=== PATIENT | male | born 1950 | race Caucasian/White ===

== ENCOUNTER 2023-12-19 06:16 | Day surgery (SDC) | payer OTHER, SELFPAY ==
[2023-12-11 10:25] VITALS: BMI 28.1
--- NOTE | 2023-12-17 10:49 | PTCARENOTE ---
Patient called with questions regarding preop meds-states he took his eliquis this morning, stated he will not take this evening. Heidi @ Dr. Craig office notified, no additional actions required per Heidi.
[2023-12-19] VITALS (7 sets, daily range): BP systolic 132–168; BP diastolic 81–99; BMI 28.1
[2023-12-19] MEDS: NORMOSOL-R 1000 IV (09:56)
[2023-12-19] MEDS: TYLENOL 1000 MG PO (09:56)
--- NOTE | 2023-12-19 10:16 | W.SUR.PREOP ---
Pre-Operative Surgical Note
-
I have examined this patient prior to the performance of the scheduled procedure.
The patient's condition is unchanged from the time of the current History and
Physical and the patient is able to undergo the scheduled procedure.
--- NOTE | 2023-12-19 11:29 | W.IMMPOSTOP ---
Addendum entered and electronically signed by Luis Miguel Tirado MD 12/19/23 11:35:
#[id number]
Original Note:
Surgical Immed Post Op Note
-
Primary Surgeon: Celestino
Assisting Surgeon: None
Pre-op Diagnosis: Subcutaneous Lipoma Anterior Neck
Post-op Diagnosis: Subcutaneous lipoma right anterior neck; 8.5 cm
Procedure Performed: Excision of right anterior neck subcutaneous lipoma
Anesthesia Type: GETA +0.25% Marcaine with epi
Specimen / Cultures: Subcutaneous lipomatous mass
Estimated Blood Loss: 4 mL
Complications: None immediate
Operative Findings: Large lobulated but encapsulated subcutaneous lipoma right anterior neck. 8.5 cm maximal dimension.
== END 2023-12-19 13:05 | disposition home or self-care (01) ==
LOC: SDS 06:16
PROVIDERS: ATTENDING PHYSICIAN Surgery; FAMILY PHYSICIAN Student in an Organized Health Care Education/Training Program
DX: D17.0 Benign lipomatous neoplasm of skin and subcutaneous tissue of head, face and neck (principal)
CPT/HCPCS: 11426; 12044; 88304; 36415; 93005

== ENCOUNTER → 2024-07-02 07:34 | Outpatient (REF) | payer OTHER, SELFPAY | LOC: HWRCS 07:34 | PROVIDERS: ATTENDING PHYSICIAN Internal Medicine Cardiovascular Disease; FAMILY PHYSICIAN Student in an Organized Health Care Education/Training Program | DX: Z01.818 Encounter for other preprocedural examination (principal); R01.1 Cardiac murmur, unspecified; R94.39 Abnormal result of other cardiovascular function study | CPT/HCPCS: 78452; 93017; A9500; J2785 ==

== ENCOUNTER → 2024-07-07 08:03 | Outpatient (REF) | payer OTHER, SELFPAY | LOC: RCS 08:03 | PROVIDERS: ATTENDING PHYSICIAN Internal Medicine Cardiovascular Disease; FAMILY PHYSICIAN Student in an Organized Health Care Education/Training Program | DX: R01.1 Cardiac murmur, unspecified (principal) | CPT/HCPCS: 93306 ==

== ENCOUNTER 2024-07-15 06:26 | Day surgery (SDC) | payer OTHER, SELFPAY | END 2024-07-15 09:16 | disposition home or self-care (01) | LOC: GI 06:26 | PROVIDERS: ATTENDING PHYSICIAN Specialist | DX: Z12.11 Encounter for screening for malignant neoplasm of colon (principal); D12.0 Benign neoplasm of cecum; D12.2 Benign neoplasm of ascending colon; K63.5 Polyp of colon; K57.30 Diverticulosis of large intestine without perforation or abscess without bleeding; Z86.0101 Personal history of adenomatous and serrated colon polyps | CPT/HCPCS: 45385; 45380; 88305 ==

== ENCOUNTER 2024-11-09 07:02 | Day surgery (SDC) | payer OTHER, SELFPAY ==
[2024-10-26 10:15] VITALS: BMI 27.1
[2024-11-09 07:50] VITALS: BMI 27.1
== END 2024-11-09 10:49 | disposition home or self-care (01) ==
LOC: CATH 07:02
PROVIDERS: ATTENDING PHYSICIAN Internal Medicine Cardiovascular Disease; FAMILY PHYSICIAN Student in an Organized Health Care Education/Training Program
DX: I08.3 Combined rheumatic disorders of mitral, aortic and tricuspid valves (principal); I48.0 Paroxysmal atrial fibrillation; I42.9 Cardiomyopathy, unspecified; I10 Essential (primary) hypertension; I45.2 Bifascicular block; E03.9 Hypothyroidism, unspecified; N40.0 Benign prostatic hyperplasia without lower urinary tract symptoms; I27.20 Pulmonary hypertension, unspecified; Z79.01 Long term (current) use of anticoagulants
CPT/HCPCS: 93312; 93320; 93325; 93005

== ENCOUNTER 2025-02-04 07:25 | Day surgery (SDC) | payer OTHER, SELFPAY ==
[2025-02-04] VITALS (9 sets, daily range): BP systolic 125–159; BP diastolic 75–103; BMI 26.9
[2025-02-04] MEDS: NSS 269 ML IV (08:29)
--- NOTE | 2025-02-04 12:04 | ITS.CL.PN ---
Helminthology Teacher - Procedure Note
Procedure
Procedure Note:
CARDIAC CATHETERIZATION REPORT
Date of Procedure: 02/04/2025
Referring: Dr. Terrence Moore MD
Indication: anginal chest pain, positive cardiac stress test, moderate MR
PROCEDURE(S)
1. right heart catheterization
2. left heart catheterization
3. coronary angiography
ACCESS
1. 6F right radial artery (closure: radial band)
2. 5F right antecubital vein (closure: manual hemostasis)
CATHETERS
1. 5F [place]
2. 6F JR4
3. 6F JL5
MODERATE SEDATION: 30 minutes of moderate sedation was utilized. An independent certified medical coding specialist was present to assist with and help manage the patient's level of consciousness and physiologic status.
VENTRICULOGRAPHY: normal EF and no RWMA, no evidence of more than moderate MR
HEMODYNAMIC DATA
LV 117/7 (EDP 14) mmHg
AO 125/74 (mean 91) mmHg
RA 10 mmHg
RV 26/4 (EDP 10) mmHg
PA 29/10 (mean 18) mmHg
PCWP 15 mmHg
SaO2 93.4%
SvO2 67.6%
Hb 14.4 g/dL
CO/CI 5.25/2.47 L/min/m2
SVR 1234 dsc*-5
PVR 0.6 [place] units
CORONARY ANGIOGRAPHY
Dominance: co-dominant
LM: large with mild distal tapering
LAD: Large vessel giving rise to a moderate caliber D1, small D2, and terminating at the apex. There is severe disease in the proximal LAD extending into the D1. The apical LAD supplies [id number] collaterals to an atretic appearing RPDA.
LCx: Large co-dominant vessel giving rise to a moderate caliber branching OM1/ramus, large branching LPL1, moderate caliber LPL2, and moderate caliber LPDA. There is severe disease in the proximal portion of the OM1/ramus and the proximal portion of
the LPL2. The remainder the vessel has diffuse mild to moderate disease.
RCA: Large codominant vessel severely occluded in the midportion with the RPDA supplied via weak antegrade flow competing with L-R collaterals
RADIATION: dose 486 mGy; DAP 33.2 Gy*cm2; fluoroscopy time 9.6 min
CONCLUSIONS
1. Triple-vessel coronary artery disease as described in a codominant system
2. Mildly elevated biventricular filling pressures and normal cardiac output.
3. No significant aortic valve stenosis and no evidence of worsened moderate mitral valve regurgitation
RECOMMENDATIONS
1. Consideration for coronary artery bypass grafting and mitral valve repair versus replacement. [place] revascularization would involve grafts to the LAD, D1, OM1/ramus, and LPL1.
2. Aggressive secondary prevention of coronary artery disease
Copy to: Dr. Terrence Moore MD (locomotive crane operator); Dr. Shimon Ponce MD (PCP)
Signed: Checo Rodriguez MD, PhD
--- NOTE | 2025-02-04 13:11 | PTCARENOTE ---
received pt from labor relations worker w heart rate of 45 bpm. pt asymptomatic .no c/o dizziness, no diaphoresis,pt aa and oriented. notified backend python developer gay sullivan. ekg orderd and complete. dr bergeron also at bedside and aware of heart rate. no intervention at this time.
--- NOTE | 2025-02-04 14:16 | PTCARENOTE ---
pts hr still 45-51. barbara sullivan aware and stated pts previous admissions his hr was in the 40's. and pt was stable when walked and voided . without complaint of any dizziness or diaphoresis. pt is ok to be discharged.
== END 2025-02-04 14:31 | disposition home or self-care (01) ==
LOC: CATH 07:25
PROVIDERS: ATTENDING PHYSICIAN Student in an Organized Health Care Education/Training Program; FAMILY PHYSICIAN Student in an Organized Health Care Education/Training Program; OTHER PHYSICIAN Internal Medicine Cardiovascular Disease
DX: I25.119 Atherosclerotic heart disease of native coronary artery with unspecified angina pectoris (principal); I34.0 Nonrheumatic mitral (valve) insufficiency; I49.3 Ventricular premature depolarization; I48.91 Unspecified atrial fibrillation; I45.10 Unspecified right bundle-branch block; I10 Essential (primary) hypertension; E03.9 Hypothyroidism, unspecified; Z79.01 Long term (current) use of anticoagulants; Z79.899 Other long term (current) drug therapy
CPT/HCPCS: 99152; 99153; 93005; 93460; C1769; C1894; Q9967

== ENCOUNTER → 2025-02-09 11:27 | Outpatient (REF) | payer OTHER, SELFPAY | LOC: HWRAD 11:27 | PROVIDERS: ATTENDING PHYSICIAN Thoracic Surgery (Cardiothoracic Vascular Surgery); FAMILY PHYSICIAN Student in an Organized Health Care Education/Training Program | DX: I25.10 Atherosclerotic heart disease of native coronary artery without angina pectoris (principal) | CPT/HCPCS: 71250 ==

== ENCOUNTER 2025-02-16 04:54 | Inpatient (IN) | payer OTHER, SELFPAY ==
[2025-02-11 11:59] VITALS: BMI 28.7
[2025-02-11 12:40] LABS: Hematocrit 41.3 % (39.0-52.0); Hemoglobin 14.1 g/dL (13.0-18.0); Mean Corp Hgb Conc. 34.1 g/dL (33.0-37.0); Mean Corpuscular Volume 99.8 fL (80.0-94.0); Nucleated Red Blood Cells % 0 % (-); Platelet Count 224 10^3/uL (130-400); Red Cell Dist. Width 11.9 % (11.5-14.5)
[2025-02-11 12:53] LABS: INR 1.24; PT 15.9 Sec (11.4-14.6)
[2025-02-11 12:56] LABS: ALT (SGPT) 32 U/L (0-50); AST (SGOT) 40 U/L (17-59); Albumin 4.2 g/dl (3.5-5.0); Alkaline Phosphatase 105 U/L (38-126); Blood Urea Nitrogen 16 mg/dl (9-20); Calcium 9.5 mg/dl (8.4-10.2); Carbon Dioxide 30 mmol/L (22-30); Chloride 105 mmol/L (98-107); Estimated Creatinine Clearance 94 ml/min; Glucose 116 mg/dl (70-99); Potassium 4.1 mmol/L (3.5-5.1); Sodium 141 mmol/L (135-145); Total Protein 7.2 g/dl (6.3-8.2); eGFR > 60.00
[2025-02-11 13:08] LABS: Urine Character Clear (Clear)
--- NOTE | 2025-02-11 13:58 | CM ---
spoke to pt in PAT, we discussed preop CABG/AVR/MVR restrictions, including [place] driving restrictions. he is prev indep, lives with hiis in a 2 story home with 1 step to enter. he has a cane at home if needed. he has the ct surgery book,
soap and instructions. he is agreeable to a f/u visit from the ct transitional care nurses after dc. plan is for ct surgery 02/16, cm role explained and all questions answered.
[2025-02-11 14:05] LABS: Urine Squamous Cell 0-2 /LPF (Few); Urine White Cell 0-2 /HPF (0-5)
[2025-02-11 14:23] LABS: Glycohemoglobin (HgbA1c) 5.4 % (4.0-5.6)
[2025-02-16] VITALS (14 sets, daily range): BP systolic 87–169; BP diastolic 50–114; BMI 28.2
[2025-02-16] MEDS: MAGNESIUM OXIDE 400 MG PO (05:24)
[2025-02-16] MEDS: BACTROBAN 2% OINTMENT 1 APPLIC NASAL ×2 (05:25→19:31)
[2025-02-16] MEDS: PROTONIX 40 MG PO (05:25)
[2025-02-16] MEDS: LOPRESSOR 25 MG PO (05:25)
--- NOTE | 2025-02-16 05:49 | PTCARENOTE ---
Patient admitted to CVICU. Admission questions asked and vital signs obtained. Patient clipped and washed w/ CHG wipes. Med rec performed. Medications administered. Patient states having SOB when sleeping. CT PA Ed aware. Awaiting CVOR.
--- NOTE | 2025-02-16 06:17 | W.CVOR.SURPR ---
CVOR Surgeon Immed Pre Op
-
I have examined this patient prior to performance of the scheduled procedure.
The patient's condition is unchanged from the time of the dictated/written History and
Physical and the patient is able to undergo the scheduled procedure.
CABG + MVr +/- AVR + LAAE
[2025-02-16 07:00] LABS: ACT+ - POC 137 Seconds (82-134)
[2025-02-16 07:39] LABS: Urine Character Clear (Clear)
[2025-02-16 07:59] LABS: Urine Squamous Cell 0-2 /LPF (Few); Urine Urothelial Cell >30 /LPF (FEW)
[2025-02-16 08:02] LABS: Urine White Cell 0-2 /HPF (0-5)
[2025-02-16 08:03] LABS: Urine Red Blood Cell 21-25 /HPF (0-2)
--- NOTE | 2025-02-16 08:18 | CM ---
Reviewed chart. Mr. Law is in the operating room today. Prior to admission he resides with his spouse in a two story home with one step to enter. Prior to admission he was independent with ambulation and adls. He has a single point cane at home.
He has a prescription plan and uses [facility]. Medial work-up in progress. The dischargee plan is to return home with his spouse and a home visit by the Transitional Care Nurse when medically stable.
[2025-02-16 08:32] LABS: ACT+ - POC 672 Seconds (82-134)
[2025-02-16 08:47] LABS: B.E. - POC 2.0 mmol/L; Glucose - POC 115 mg/dl (70-99); HCO3 - POC 29 mmol/L (21-28); Hematocrit - POC 37 % PCV (42-52); Hemodilution- POC Yes; Hemoglobin Calculated - POC 12.7; Ionized Calcium - POC 1.24 mmol/L (1.15-1.33); Lactate - POC < 0.30 mmol/L (0.36-0.75); O2 Saturation %Calculated-POC 99.9 % (94-98); PCO2 - POC 54 mmHg (35-48); PO2 - POC 339 mmHg (83-108); POC Comment PRE; Potassium - POC 3.3 mmol/L (3.5-5.1); Sodium - POC 143 mmol/L (136-145); Specimen Type - POC Arterial; pH - POC 7.34 (7.35-7.45)
--- NOTE | 2025-02-16 08:49 | CON.INTV ---
Consultation
Consultation Request
Date/Time Consultation Requested: 02/16/2025
Date/Time Consultation Performed: 02/16/2025
Medical History
-
Chief Complaint: Dyspnea
History of Present Illness:
Patient is a 74-year-old gentleman who follows up with cardiology services outpatient. Patient reportedly has some exertional dyspnea concerning for anginal symptoms. Subsequent stress test was abnormal and patient then had a coronary angiogram
performed which was suggestive of multivessel coronary artery disease. Patient was then referred to CT surgery service. Coronary artery bypass graft was recommended and postprocedure patient was admitted to CVICU. Platform Builder consultation was
requested for further input.
Past medical history. Hypertension, hypothyroidism, atrial fibrillation, history of colon adenoma.
Past surgical history. Appendectomy, epidural steroid injection. Lipoma excision.
Family history. No significant coronary artery disease.
Social history. No history of smoking.
Allergies / Home Medications
Allergies
Allergy/AdvReac Type Severity Reaction Status Date / Time
No Known Allergies Allergy Verified 02/10/25 11:39
Home Medications
�Medication �Instructions �Recorded �Confirmed �Last Taken �Type
levothyroxine 150 mcg tablet 150 mcg PO DAILY 12/11/23 02/16/25 02/15/25 History
lisinopril 40 mg tablet 40 mg PO DAILY 12/11/23 02/16/25 02/13/25 History
L.acidophilus-B.animalis-B.bifidum 1 cap PO DAILY 10/22/24 02/16/25 02/15/25 History
25 billion cell-FOS 100 mg capsule
(Probiotic Complex)
acetaminophen 325 mg tablet 325 mg PO PRN PRN pain 10/22/24 02/16/25 02/08/25 History
(Tylenol)
apixaban 5 mg tablet (Eliquis) 5 mg PO BID 10/22/24 02/16/25 02/12/25 History
multivitamin 1 tab PO DAILY 10/22/24 02/16/25 02/08/25 History
aspirin 81 mg chewable tablet 81 mg PO DAILY #1 tab 02/04/25 02/16/25 02/15/25 Rx
0800
atorvastatin 40 mg tablet 40 mg PO QPM #90 tabs 02/04/25 02/16/25 02/14/25 Rx
nitroglycerin 0.4 mg sublingual 0.4 mg sublingual [id number] PRN 02/04/25 02/16/25 Unknown Rx
tablet chest pain #25 tabs
diltiazem HCl 120 mg capsule,24 120 mg PO DAILY 02/10/25 02/16/25 02/13/25 History
hr,extended release
polyethylene glycol 3350 17 4 g PO DAILY PRN constipation 02/10/25 02/16/25 02/15/25 History
gram/dose oral powder (Miralax)
Review of Systems
-
Unable to Obtain full review of systems at this time due to: Patient Intubation
Vitals / Labs / Diagnostic Testing
Vital Signs
Temp Resp BP Pulse Ox
97.5 F 16 150/114 96
02/16/25 05:00 02/16/25 05:00 02/16/25 05:25 02/16/25 05:00
Lab Data
02/11/25 12:10
02/11/25 12:10
Diagnostic Testing:
Physical Exam
-
HEENT: Normocephalic
Cardiovascular: S1/S2
Respiratory: Clear and Non-Labored Respirations
GI: Soft and Non Distended
Neurology: Other (Sedated)
Skin: Warm
General: Comfortable
Assessment
-
74-year-old gentleman with multivessel coronary artery disease s/p coronary artery bypass graft, mitral valve repair, tricuspid valve repair, maze procedure and left atrial appendage exclusion, POD # 0
Titrate off pressors per protocol, currently on dobutamine infusing at 5. Off Levophed. MAP of 77 with CVP of 7.
ECHO reviewed with normal function
Management of chest tubes per primary service
Intubated, initiated SAT, Precedex on hold. Still quite somnolent.
Pain control
RASS goal of 0 to -1
Intubated for procedure, SBT trial when patient able to spontaneously breath
Current vent settings: SIMV, %/5 with PS 5
AB.43/41/105
CXR with no obvious opacities/infiltrates, ETT in good position, lines/tubes in place
Extubate per protocol
Maintain supplement oxygen as needed
No prior known history of pulmonary disease
Can add nebulizers if needed
Aspiration precautions
Encouraged incentive spirometry, OOB/ambulation/early mobility
Advance diet as tolerated following extubation
GI prophylaxis: Protonix
Monitor critical I/O's
Buenrostro/chest tube output
Hb/platelets postoperatively, mild drift
Trend CBC for now
Can transfuse if indicated for Hb <7, plt <50 in surgical patients
DVT prophylaxis including SCDs
INR slightly elevated. Received 2 Platelets and 2 FFPs intra-op.
Insulin protocol initiated and ongoing
Transition to SQ/off as indicated per team
Other medical diagnoses:
- Atrial Fibrillation. Chronically has been on Eliquis and Cardizem ER 120 mg daily.
- Hypertension
- Hypothyroidism
Will get additional history once patient is awake, alert and able to communicate.
Critical Care time [63] mins -- The patient is admitted for acute critical illness for the treatment of vital organ failure and/or prevention of further life-threatening conditions. Total care includes time spent in review of history, physical exam,
medications, hemodynamic/ventilator parameters, laboratory data, imaging and discussion with house staff, pharmacy, respiratory therapy, geophysical drafter, and nursing
Data:
[facility] 01/2025: 1. Triple-vessel coronary artery disease as described in a codominant system
2. Mildly elevated biventricular filling pressures and normal cardiac output.
3. No significant aortic valve stenosis and no evidence of worsened moderate mitral valve regurgitation
CHEST CT 01/2025: Coronary artery calcifications, limited in evaluation, as noted above.
SAJAN 10/2024: Normal left ventricular systolic function .
Estimated ejection fraction 55 to 60%.
Moderate eccentric mitral regurgitation
Mild to moderate aortic regurgitation
Mild to moderate tricuspid regurgitation
No evidence of pulmonary hypertension
ECHO 06/2024: Top normal left ventricular chamber size.
Estimated left ventricular ejection fraction is 50% with mild global hypokinesis.
Severe biatrial enlargement.
At least moderate, highly eccentric, mitral regurgitation.
Mild to moderate aortic regurgitation.
Mild to moderate tricuspid regurgitation.
Estimated PASP 45 mmHg and estimated RA 8 mmHg.
Mildly dilated aortic root and ascending aorta.
Compared to echocardiogram 11/05/2019 the LV has increased in size/volume and is
now top normal in size with low normal systolic function. MR may have
progressed. Pulmonary hypertension is new.
Consider a SAJAN to exclude severe MR.
[2025-02-16 08:51] LABS: ACT+ - POC 482 Seconds (82-134)
[2025-02-16 09:11] LABS: ACT+ - POC 527 Seconds (82-134)
[2025-02-16 09:21] LABS: ACT+ - POC 487 Seconds (82-134)
[2025-02-16 09:37] LABS: ACT+ - POC 502 Seconds (82-134)
[2025-02-16 09:56] LABS: ACT+ - POC 817 Seconds (82-134)
[2025-02-16] MEDS: SYNTHROID PO (09:59)
[2025-02-16 10:01] LABS: B.E. - POC 7.7 mmol/L; Glucose - POC 115 mg/dl (70-99); HCO3 - POC 31 mmol/L (21-28); Hematocrit - POC 31 % PCV (42-52); Hemodilution- POC Yes; Hemoglobin Calculated - POC 10.7; Ionized Calcium - POC 1.09 mmol/L (1.15-1.33); Lactate - POC 0.72 mmol/L (0.36-0.75); O2 Saturation %Calculated-POC 100.0 % (94-98); PCO2 - POC 36 mmHg (35-48); PO2 - POC 335 mmHg (83-108); POC Comment CPB; Potassium - POC 4.5 mmol/L (3.5-5.1); Sodium - POC 140 mmol/L (136-145); Specimen Type - POC Arterial; pH - POC 7.54 (7.35-7.45)
[2025-02-16 10:11] LABS: ACT+ - POC 600 Seconds (82-134)
[2025-02-16 10:25] LABS: B.E. - POC 5.7 mmol/L; Glucose - POC 140 mg/dl (70-99); HCO3 - POC 30 mmol/L (21-28); Hematocrit - POC 32 % PCV (42-52); Hemodilution- POC Yes; Hemoglobin Calculated - POC 10.9; Ionized Calcium - POC 1.10 mmol/L (1.15-1.33); Lactate - POC 1.46 mmol/L (0.36-0.75); O2 Saturation %Calculated-POC 99.9 % (94-98); PCO2 - POC 39 mmHg (35-48); PO2 - POC 271 mmHg (83-108); POC Comment CPB; Potassium - POC 4.5 mmol/L (3.5-5.1); Sodium - POC 141 mmol/L (136-145); Specimen Type - POC Arterial; pH - POC 7.49 (7.35-7.45)
[2025-02-16 10:33] LABS: ACT+ - POC 509 Seconds (82-134)
[2025-02-16 10:53] LABS: ACT+ - POC 527 Seconds (82-134)
[2025-02-16 10:53] LABS: B.E. - POC 5.4 mmol/L; Glucose - POC 144 mg/dl (70-99); HCO3 - POC 29 mmol/L (21-28); Hematocrit - POC 30 % PCV (42-52); Hemodilution- POC Yes; Hemoglobin Calculated - POC 10.1; Ionized Calcium - POC 1.08 mmol/L (1.15-1.33); Lactate - POC 1.32 mmol/L (0.36-0.75); O2 Saturation %Calculated-POC 99.9 % (94-98); PCO2 - POC 37 mmHg (35-48); PO2 - POC 322 mmHg (83-108); POC Comment WARM; Potassium - POC 4.4 mmol/L (3.5-5.1); Sodium - POC 144 mmol/L (136-145); Specimen Type - POC Arterial; pH - POC 7.50 (7.35-7.45)
[2025-02-16 10:57] LABS: B.E. - POC 7.7 mmol/L; Glucose - POC 108 mg/dl (70-99); HCO3 - POC 31 mmol/L (21-28); Hematocrit - POC 30 % PCV (42-52); Hemodilution- POC Yes; Hemoglobin Calculated - POC 10.1; Ionized Calcium - POC 1.08 mmol/L (1.15-1.33); Lactate - POC < 0.30 mmol/L (0.36-0.75); O2 Saturation %Calculated-POC 100.0 % (94-98); PCO2 - POC 39 mmHg (35-48); PO2 - POC 425 mmHg (83-108); POC Comment CPB; Potassium - POC 3.9 mmol/L (3.5-5.1); Sodium - POC 141 mmol/L (136-145); Specimen Type - POC Arterial; pH - POC 7.52 (7.35-7.45)
[2025-02-16 11:03] LABS: ACT+ - POC 585 Seconds (82-134)
[2025-02-16 11:15] LABS: B.E. - POC 4.8 mmol/L; Glucose - POC 134 mg/dl (70-99); HCO3 - POC 28 mmol/L (21-28); Hematocrit - POC 27 % PCV (42-52); Hemodilution- POC Yes; Hemoglobin Calculated - POC 9.3; Ionized Calcium - POC 1.03 mmol/L (1.15-1.33); Lactate - POC 1.68 mmol/L (0.36-0.75); O2 Saturation %Calculated-POC 100.0 % (94-98); PCO2 - POC 35 mmHg (35-48); PO2 - POC 329 mmHg (83-108); POC Comment WARM; Potassium - POC 4.8 mmol/L (3.5-5.1); Sodium - POC 143 mmol/L (136-145); Specimen Type - POC Arterial; pH - POC 7.51 (7.35-7.45)
[2025-02-16 11:21] LABS: ACT+ - POC 148 Seconds (82-134)
[2025-02-16 11:31] LABS: ACT+ - POC 148 Seconds (82-134)
[2025-02-16] MEDS: NEURONTIN PO ×2 (12:33→15:13)
--- NOTE | 2025-02-16 12:57 | W.PN.CT.SURG ---
CT Surgery Operative Note
-
CARDIAC SURGERY OPERATIVE REPORT
Preoperative Diagnosis: Severe mitral valve insufficiency and unstable angina with multivessel coronary artery disease
Postoperative Diagnosis: Same, severe tricuspid valve insufficiency, functional
Procedure(s) Performed:
1. Standard sternotomy with aortic and bicaval cannulation
2. Coronary artery bypass grafting x 4 [in situ MAGANA to LAD, Ao to RSVG to OM 1 and LPL, Ao to RSVG to diagonal]
3. Radical mitral valve repair [closure of cleft between P2 and P3, free edge remodeling between P3 and commissure, placement of single Stow-Gaston suture from anterolateral papillary muscle head to P2 and P3, 32 mm band annuloplasty]
4. Simple tricuspid valve repair [34 mm band annuloplasty]
5. Full surgical, open left atrial maze and left atrial appendage exclusion [40 mm device]
6. 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
7. Placement of temporary atrial ventricular pacing wires
8. Transesophageal echocardiography
9. Bilateral endoscopic vein harvesting
Date of Surgery: 02/16/25
Comorbidities:
1. Multivessel coronary disease with unstable angina
2. Ischemic and nonischemic mixed cardiomyopathy with reduced left ventricular ejection fraction of 40 to 45%
3. Hyperlipidemia
4. Hypertension
5. Paroxysmal atrial fibrillation
6. Mild aortic valve insufficiency secondary to leaflet prolapse
7. Type II mitral valve pathology, flail with prolapse of P3 and severe mitral valve insufficiency
8. Functional tricuspid valve insufficiency, severe
Attending Surgeon: Ilan Sullivan MD, MS
Assistants: Ida Hernandez PA-C (present and necessary to registered dental assistant, retraction, suction, exposure, suture management, and wound closure under my direction)
Anesthesiology: Jose Manuel Oviedo MD and Eufemia Richards CRNA
Scrub and Circulating RNs: Tere Gtz, RN, Monica Young, RN and Rain Yee RN
Manager News: Florence Shell CCP
Anesthesia: GETA
EBL: per perfusion records
Products: 2 plts and 2 ffp
CPB Time: 148 minutes
Aortic Cross Clamp Time: 123 minutes
Indication(s) for Procedures: This is a 74-year-old male who recently had a positive cardiac stress test and also has been experiencing chest pain and tightness. He was found to have multivessel coronary disease. He also has known mitral valve
insufficiency that was secondary to degenerative pathology. He was offered valve and coronary intervention and possible ablation as well as left atrial appendage ligation given his history of A-fib.
Aortic Valve Description: Mild aortic valve insufficiency, trileaflet morphology with some prolapsing of the left coronary cusp and some leakage at the commissure, not enough to intervene on.
Mitral Valve Description: Flail segment with a couple of torn cords at the P3 scallop, dilated annulus.
Tricuspid Valve Description: Dilated annulus of over 5 cm and moderately severe to severe tricuspid valve insufficiency, functional pathology.
Findings: His left ventricular ejection fraction preoperatively was 45% with mild dilation of his left ventricle. He also had a strange opacity seen on echocardiogram next to his left atrial appendage concerning for either clot or a fibroelastoma.
Following surgery his EF remained the same at 40% on low-dose dobutamine. There were no new regional wall motion abnormalities. His RV function was normal. His mitral valve was repaired with plication of his free margin and remodeling as well as
cleft closure between P2 and P3 and P3 and the commissure. A single Stow-Gaston cord placed the anterior lateral papillary muscle head to this P2 P3 free margin in order to reinforce it for the future. A 32 mm band annuloplasty was secured in the
placement trigone to trigone using 9 nonpledgeted 2-0 Ethibond sutures secured with core knots. The tricuspid valve was severely dilated and a total of 9 nonpledgeted 2 Ethibond sutures were placed from the anterior septal commissure to the
midpoint of the septal leaflet securing a 34 mm band annuloplasty with core knots. A total of 4 coronary artery bypass graft performed with an in situ MAGANA to the LAD with good visual flow in the LAD territory. Flow probe assessment of the graft
demonstrated excellent mean flows and low pulsatility indices. A vein graft was also performed to the first OM and the LPL branch as a sequential graft. There is excellent flow in this graft. A single diagonal vein graft was also performed that
demonstrated excellent mean flows and low pulsatility indices. There was some bleeding at the LPL branch anastomosis which required repair. He was also in atrial fibrillation at the beginning of the case and so full left atrial ablation was
performed please see the ablations lines listed below. 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
left atrium. This was resected. The left atrial appendage was then clipped with a 40 mm device flush to the base. I then surveyed intra atrial he into the left atrium while doing the mitral valve repair and ablation and found no residual
fibroelastoma. After coming off cardiopulmonary bypass there was no residual mitral valve insufficiency, the mean gradient across the mitral valve was 2 mmHg, there is no residual tricuspid valve insufficiency. He was on 5 of Dobutrex preemptively
and regained his [place] sinus rhythm after short period of AV pacing and A-fib. Cardiac index is well over 2. He was resistant to heparin and had low and fluctuating ACT's and so to units FFP were given preemptively. Of note, his ascending aorta
was relatively friable and thin and there was multiple repair sutures placed at the antegrade site for hemostasis which was accessible. A bovine pericardial patch was fashioned and oval and sewn on with 4-0 Prolene over top of this site as a [place]
patch with good effect.
Ablation Lines:
1. Box lesion to posterior LA wall
2. EVI lesion + EVI Exclusion
3. Coronary sinus lesion
4. Posterior mitral annular line toward P2/P3
Specimen(s): Fibroelastoma.
Prosthesis:
1. 32 mm Taylor physio flex and annuloplasty, serial #[id number]
2. 40 mm left atrial appendage clip, serial #[id number]
3. 34 mm Medtronic triad band annuloplasty for tricuspid valve, serial number [id number]
4. Bovine pericardial patch, serial number [id number] of the end
5. Single CV 3 Stow-Gaston
6. Multiple 5-0 Prolenes
Description of Procedure: The patient was taken to the operating room. Their identity and procedure to be performed were verified and they were positioned supine on the operating table. Induction via general anesthesia with endotracheal intubation
was performed and central venous access and arterial monitoring were inserted. A preoperative transesophageal echocardiogram was performed to assess cardiac function and valvular function. The patient was then prepped and draped from chin to feet in
a sterile fashion. A preoperative time-out was performed with all members of the team present. A midline chest incision was performed along with median sternotomy. Simultaneous endoscopic access of the right and left lower extremity for saphenous
vein harvest was obtained along with administration of an initial 5,000 units of IV heparin. A RulTract sternal retractor was positioned to exposure the left internal mammary bed. The mammary was harvested and found to have good flow. the distal
end of the mammary was clipped with 2 medium clips after dividing it. It was wrapped in a papaverine soaked RayTec and replaced back into the left hemithorax. The RulTract was exchanged for a median sternal retractor. The innominate vein was
isolated. Full heparinization was given (a total of 76,000 units). We created a pericardial well. The aortic cannulation site was chosen where it was soft, pliable, and free of calcium. Cannulation was performed with an arterial cannula in the
ascending aorta, angled metal tip cannular in the superior vena cava and straight bendable cannula in the inferior vena cava. The arterial cannula line had an appropriate bounce and correlating pressures. Next, a root vent/antegrade cannula was
inserted into the ascending aorta. The ACT was confirmed to be over 400 and retrograde autologous priming was performed before commencing cardiopulmonary bypass. The pulmonary artery was away from the aorta to facilitate a clamp site.
Sondergaard�s groove was developed after creating the oblique sinus. The aortic cross-clamp was placed after decreasing the flow on the bypass and mean arterial pressure. A total of 1.2L initial dose of antegrade Del-Nido cardioplegia solution was
given and planned for re-dosing every 60 minutes as necessary. There was rapid electro-mechanical arrest of the heart at 300-400 cc of cardioplegia. The left ventricle was observed for distention on echocardiogram and manual palpation. Cold slush
was placed into a lap on the RV and we systemically cooled to 34 degrees centigrade.
I open the left atrial appendage after rotating heart medially here and visualized inside. There is no obvious clot but there was a small fibroelastoma on the wall. This was removed. A clip was then applied flush the base. Next, I positioned the
heart to expose the LPL. A [place] blade was used to expose the coronary and perform the arteriotomy. Coronary Garza scissors were used to enlarge the incision. The saphenous vein was trimmed and beveled to an appropriate size. The distal anastomosis
was performed using 7-0 prolene in an end-to-side fashion. Antegrade cardioplegia was administered into the graft. Appropriate hemostasis and flow were confirmed. The graft was then positioned in order to accommodate a sequential graft to the first
OM. The underbelly of the vein graft was incised and the distal coronary artery target was. A similar fashion. A nnvx-na-dunm anastomosis was then created 7-0 Prolene. A bulldog clamp was placed on the distal end of that sequential graft and
test dose of antegrade was given down in the usual fashion. This confirmed both hemostasis and flow. The graft was measured for length to the aorta and cut. A suitable site on the bifurcated diagonal vessel was chosen. We dissected and prepared
the distal target in a similar fashion. An end-to-side anastomosis was created with a 7-0 prolene. Antegrade cardioplegia was administered into the graft. Appropriate hemostasis and flow were confirmed. The graft was measured for length to the aorta
and cut. A suitable target on the mid/distal left anterior descending was identified. We dissected and prepared the distal target in a similar fashion. We retrieved the MAGANA from the chest and created a pericardial opening while being cognizant of
the phrenic nerve to facilitate the course of the mammary. The distal end of the mammary was prepped and beveled to size. We verified orientation and length of the LUCIO and found brisk flow. An end-to-side anastomosis was created with a 7-0 prolene.
We temporarily released the bulldog clamp on the mammary to inspect flow. Perfusion to the LAD territory was visualized and hemostasis was confirmed. The bull clamp was replaced on the mammary.
Carbon dioxide was used to flood the field. Next, the mitral valve was accessed via the left atrium at Sondergaard's groove followed by valve analysis. Using cryo, a full left atrial base was performed. The mitral valve was repaired as described
above. The left atrium was closed with a 3-0 prolene. I then used Vesseloops to isolate the SVC and IVC and the right atrium was opened up vertically across the stanley terminalis. The tricuspid valve was repaired as described above. I then moved
onto performing the proximal anastomoses. The root was filled with antegrade cardioplegia and then punctured x 2 with 11 blade and enlarged with a 4.0 millimeter punch. The proximal anastomoses were performed with 6-0 Prolene in a running fashion.
At this point the patient was placed into a steep Trendelenburg position and de-airing maneuvers were then performed. Ventricular pacing wires as well as atrial pacing wires were placed in the base of the RV and SVC right atrial junction,
respectively. The flows on the heart-lung machine was then lowered and the cross-clamp was removed. While the heart was reperfusing, the right atrium was then closed under isolation with 5-0 Prolene in a running fashion in 2 layers. The SVC and
IVC snares were then removed.
Transesophageal echocardiography revealed no evidence of systolic anterior motion and ventricular function was normal. Once de-airing was satisfactory the left ventricular and root vents were removed. After verifying acceptable parameters, we
initiated weaning from cardiopulmonary bypass. Once we were off cardiopulmonary bypass, the venous cannulas was clamped and removed sequentially. A test dose of protamine was administered and the patient was monitored for any adverse reaction before
resuming protamine. Once half of the protamine dose was delivered, pump suckers were turned off and the systolic blood pressure was lowered for aortic decannulation. The aortic cannula was removed and purse strings were tied down. All cannulation
sites were oversewn with a 4-0 prolene. The left atrial suture line was inspected and hemostasis was confirmed. There was some bleeding at the distal anastomosis at the LPL site and so this was exposed and repaired with a 7-0 suture and placement
of topical hemostatic agent. Mediastinal hemostasis was obtained. Two #24 Satish drains were placed within the pericardium with a single #19 Satish drain to the left hemithorax. The sternum was approximated with 4 #7 single and 3 #8 double stainless
steel wires. Fascia was approximated with #1 vicryl suture. The subcutaneous, dermis and epidermis were closed in layers in a running fashion. The skin wound was cleansed and dressed.
All instrument, sponge, and needle counts were confirmed to be correct x 2 at the end of the operation. The patient was transferred to the cardiac intensive care unit in critical but stable condition.
I, Dr. Ilan Sullivan, was present, scrubbed for, and performed all critical elements of this procedure.
Ilan Sullivan MD, MS
Cardiothoracic Surgeon
[facility]
This dictation was created using the [employer] dictation system. Please excuse any grammatical, typographical, or 'sound alike' errors
[2025-02-16 13:12] LABS: B.E. - POC 4.4 mmol/L; Glucose - POC 128 mg/dl (70-99); HCO3 - POC 28 mmol/L (21-28); Hematocrit - POC 29 % PCV (42-52); Hemodilution- POC Yes; Hemoglobin Calculated - POC 9.7; Ionized Calcium - POC 1.18 mmol/L (1.15-1.33); Lactate - POC 1.57 mmol/L (0.36-0.75); O2 Saturation %Calculated-POC 99.9 % (94-98); PCO2 - POC 38 mmHg (35-48); PO2 - POC 286 mmHg (83-108); POC Comment POST; Potassium - POC 4.0 mmol/L (3.5-5.1); Sodium - POC 143 mmol/L (136-145); Specimen Type - POC Arterial; pH - POC 7.48 (7.35-7.45)
[2025-02-16 13:13] LABS: Glucose - Point of Care 134 mg/dl (70-99)
--- NOTE | 2025-02-16 13:17 | W.PN.UPDATE ---
Update Note
Progress Note Update
74 year old male electively admitted for mitral, tricuspid repair, CABG, MAZE due to moderate MR/TR, 3VCAD
IV fluids: 2500
U.O.:� 500
Blood:� 2FFP (for Heparin resistance), 2 plts
Wires:� A + V wires
Drips: Dobut @ 5, Cardene-off on arrival, Precedex 0.5, Insulin
�
NEURO: sedated, pupils +2mm B/L
RESP: #8OT @23cm> 500/60%/14/5. Lungs clear B/L. 2 mediastinal (5cc on arrival) and L pleural (20cc on arrival) chest tubes to -20cm suction. Sanguineous drainage
CV: RRR +S1, S2, no S3, no�rub, no murmur. Dermabond to median sternotomy. RIJ w/[place] locked @ 37cm.
ABD: round, soft, no BS
EXT: no edema, +2/4 DP pulses B/L, no femoral bruit, B/L LE TOMI wrap intact; left radial A-line intact
: Buenrostro with clear yellow urine
�
A/P: POD #0 s/p Mitral repair # 32mm Physio ring, TV repair # XX band, CABG x 4 MAGANA-LAD; SVG-OM & LPL, SVG-diag, EVI # 40mm clip, cryo, MAZE
SAJAN: EF�35-40%, no MR, MV5/2mmHg, tr TR, TV 2/1mmHg
- wean and extubate
- pre discharge TTE on 02/18
- will need instruction regarding antibiotic prophylaxis for dental and invasive procedures
- SBP: goal 90-110mmHg
# CAD
-will require ASA, Plavix, statin, add beta frantz when off Dobutamine
# Junctional Rhythm
- hold Amio/Metoprolol
- AV paced @ 76BMP A-MA 6/V-MA 8
�
# acute surgical blood loss anemia-expected
- trend CBC
�
�# PAF
- currently JR
- on Eliquis at home
�
# Hypothyroidism
- resume�Levothyroxine 150mcg in AM
[2025-02-16 13:27] LABS: Hematocrit 30.7 % (39.0-52.0); Hemoglobin 10.7 g/dL (13.0-18.0); Platelet Count 159 10^3/uL (130-400)
[2025-02-16] MEDS: TYLENOL PO (13:28)
[2025-02-16] MEDS: NSS 500 IV (13:29)
[2025-02-16 13:31] LABS: B.E. 2.6 mmol/L; HCO3 27.2 mmol/L (21-28); O2 Saturation % 99.4 % (94-98); PCO2 41 mmHg (35-48); PO2 105 mmHg (83-108); Potassium 3.4 mMOL/L (3.5-5.1); Sodium 140 mMOL/L (136-145)
[2025-02-16 13:38] LABS: INR 1.80; PT 21.4 Sec (11.4-14.6)
[2025-02-16 13:39] LABS: APTT 35.0 Sec (23.4-35.0)
[2025-02-16] MEDS: KCL 50 IV ×2 (13:42→14:41)
[2025-02-16] MEDS: CALCIUM GLUCONATE 100 IV (13:42)
--- NOTE | 2025-02-16 13:53 | PTCARENOTE ---
Patient received from OR at 1310; Sedated and intubated; 100% AV paced rhythm on monitor; VSS; Epicardial AV wires present with temporary pacemaker settings DDD 76/6/0.4 76/8/0.8; +1 DP and +2 radial pulses present; Lungs diminished at bases; ETT
size 8 positioned and secured at 23 cm right lip; Ventilator settings SIMV 14/550/5/5 FiO2 40%; CTx3 to -20 cm wall suction draining bloody drainage - no air leak, tidaling, or crepitus noted; Hypoactive BS; Buenrostro catheter in place draining clear,
yellow urine; Sternal midline incision glued and approximated- CDI, right groin puncture glued, approximated, and ecchymotic - CDI, right leg wrapped in TOMI wrap - CDI; Left radial A-line in place, [place]-ceasar present in [facility] Cordis at 55 cm - all
lines zeroed and leveled; PIVx1 - #18 right forearm; Cardene insulin, precedex, dobutamine infusing - see nursing flowsheets for further details; K repleted x2; iCal repleted x1; CVNP Amanda Espinoza notified regarding abnormal PAP numbers - CXR
completed at bedside and lines traced - no further orders at this time; see nursing documentation for further details.
CO: 4.47
CI: 2.14
SVR: 1,199
[2025-02-16 14:08] LABS: Blood Urea Nitrogen 18 mg/dl (9-20); Estimated Creatinine Clearance 94 ml/min; Glucose 127 mg/dl (70-99); Magnesium 2.4 mg/dl (1.6-2.3)
[2025-02-16 14:08] LABS: Glucose - Point of Care 134 mg/dl (70-99)
--- NOTE | 2025-02-16 14:21 | W.PN.CD ---
Addendum entered and electronically signed by Caleb Noriega MD 02/16/25 18:15:
Patient seen and examined in collaboration with [employer]; agree with below.
- 74-year-old male status-post CABG x 4, mitral valve repair, tricuspid valve repair, maze, and EVI occlusion today.
- Intubated, on low-dose dobutamine; wean as tolerated.
- cell lead.
- Post-surgical management as per CT Surgery team.
- Will follow.
Original Note:
Today's Communication / Plan
-
Close post-op monitoring and care with weaning of drips and vent as tolerated per CT surgery/CVICU protocol.
Impression / Plan
-
74 y/o male (patient of Dr. Moore) with CAD, AFIB on Eliquis, hypertension, mitral regurgitation who is now s/p cardiac surgery as detailed below.
CAD, mitral regurgitation:
-official op report pending, but per report patient is s/p CABG x 4, MV repair, TV repair, MAZE, and EVI exclusion, Dr. Sullivan 02/16/25
-Intra-op SAJAN with EF Overall LVEF is approximately 30-35%. Moderate to severe tricuspid regurgitation. Moderate to severe mitral regurgitation.
-Pacer wire, Porter, CT's in place
-intubated and ventilated
-on dobutamine and Cardene
-per nursing report, received 2 platelets and 2 FFP intra-op
-GDMT when able for CM
HTN:
-monitor post-op
AFIB: has been persistent
-on Eliquis as OP- resume when safe post-op
-s/p MAZE and EVI clip as above
Physical Exam
Vital Signs/Labs
Vital Signs
Temp Pulse Resp BP Pulse Ox
96.3 F L 76 14 96/68 94
02/16/25 14:00 02/16/25 13:30 02/16/25 14:00 02/16/25 13:19 02/16/25 14:00
02/15/25 02/16/25 02/17/25
06:59 06:59 06:59
Actual Weight 89.3 kg
02/16/25 13:16
PT 21.4 Sec (11.4-14.6) H 02/16/25 13:16
INR 1.80 02/16/25 13:16
APTT 35.0 Sec (23.4-35.0) 02/16/25 13:16
Magnesium 2.4 mg/dl (1.6-2.3) H 02/16/25 13:16
Physical Exam
Constitutional: No acute distress
Cardiovascular: Rhythm & rate is regular
Respiratory: Lungs clear to auscul. and Other (intubated ventialed)
Neuro/Psych: Other (sedated)
Other: Skin (midsternal incision without redness, drainage, swelling. Well-approximated.)
Data Reviewed
-
Date of Service: February 16, 2025
EKG: Tracing Personally Visualized and interpreted (AFIB (vs junctional), RBBB- similar to previous ) and Other (tele paced)
X-Ray/CT/US/MRI/NUC/PET: Report Reviewed by me (CXR: Status post cardiothoracic surgery. No evidence for significant pneumothorax.)
Labs: Labs Reviewed by me
[2025-02-16 15:05] LABS: Glucose - Point of Care 134 mg/dl (70-99)
[2025-02-16 16:16] LABS: Glucose - Point of Care 96 mg/dl (70-99)
--- NOTE | 2025-02-16 16:30 | PTCARENOTE ---
PAP waveforms still abnormal so cable, roll plugger machine operator box, and tubing changed by RN - PAP waveform numbers improved after changing tubing; CI <2 - CVNP Amanda Espinoza notified and no further orders at this time; Patient occasionally waking up but then
falling back asleep shortly after
CO: 3.77
CI: 1.80
SVR: 1,315
[2025-02-16 17:05] LABS: Glucose - Point of Care 114 mg/dl (70-99)
--- NOTE | 2025-02-16 17:11 | PTCARENOTE ---
RT in room and patient placed on CPAP trial at 1705; EPOC ABG due at 1735
[2025-02-16 17:17] LABS: Hematocrit 32.4 % (39.0-52.0); Hemoglobin 11.0 g/dL (13.0-18.0); Platelet Count 185 10^3/uL (130-400)
[2025-02-16 17:43] LABS: B.E. - POC 4.9 mmol/L; Blood Urea Nitrogen - POC 18 mg/dl (3-120); Chloride - POC 108 mmol/L (96-111); Creatinine - POC 0.73 mg/dl (0.3-1.0); Glucose - POC 107 mg/dl (70-99); HCO3 - POC 30 mmol/L (21-28); Hematocrit - POC 31 % PCV (42-52); Hemodilution- POC No; Hemoglobin Calculated - POC 10.7; Ionized Calcium - POC 1.21 mmol/L (1.15-1.33); Lactate - POC 1.26 mmol/L (0.36-0.75); O2 Saturation %Calculated-POC 96.0 % (94-98); PCO2 - POC 45 mmHg (35-48); PO2 - POC 80 mmHg (83-108); Potassium - POC 4.1 mmol/L (3.5-5.1); Sodium - POC 147 mmol/L (136-145); Specimen Type - POC Arterial; pH - POC 7.43 (7.35-7.45)
--- NOTE | 2025-02-16 17:51 | PTCARENOTE ---
EPOC ABG reviewed at bedside with CARLIE Espinoza; RT at bedside; Patient extubated at 1750 and placed on 6L NC; IS 500 ml
[2025-02-16] MEDS: LIPITOR PO (17:52)
[2025-02-16 18:01] LABS: Glucose - Point of Care 105 mg/dl (70-99)
[2025-02-16] MEDS: LOW STRENGTH ASPIRIN 81 MG PO (18:27)
[2025-02-16] MEDS: ANCEF 5 IV (19:33)
[2025-02-16] MEDS: SENOKOT 8.6 MG PO (19:33)
[2025-02-16 19:57] LABS: Glucose - Point of Care 95 mg/dl (70-99)
--- NOTE | 2025-02-16 20:33 | PTCARENOTE ---
Assumed care of patient at 1900, report received form prior RN. Patient alert and oriented follows all commands, moves all extremities, denies pain at this time. 100% AV paced rhythm on monitor; VSS; Epicardial AV wires in place on temporary
pacemaker: DDD 76/6/0.4 76/8/0.8 settings; pulses present. [place]-ceasar at 55cm, and RIJ Cordis, Left radial A-line in place- zeroed and leveled; right forearm #18 PIV; On 6 L NC, 98% Lungs diminished at bases; CTx3 to -20 cm wall suction draining
bloody drainage - no air leak, tidaling, or crepitus noted; Bowels sounds present, tolerating sips of water and PO medication. No NV, Buenrostro catheter in place draining clear, yellow urine; Sternal midline incision glued and approximated, Chest tube
dressing in places , Right groin puncture closed with surgical glue, approximated, right leg site TOMI wrapped - all sites CDI; Insulin and dobutamine infusing - see nursing assesment and flowsheets for more details
[2025-02-16] MEDS: ALBUMIN 5% 250 IV (21:58)
[2025-02-16] MEDS: NEURONTIN 100 MG PO (22:16)
[2025-02-16] MEDS: TYLENOL 975 MG PO (22:16)
[2025-02-16 22:24] LABS: Glucose - Point of Care 106 mg/dl (70-99)
[2025-02-17] VITALS (22 sets, daily range): BP systolic 84–124; BP diastolic 55–76; PULSE 68; O2SAT 96; BMI 28.7
[2025-02-17 00:08] LABS: Glucose - Point of Care 108 mg/dl (70-99)
--- NOTE | 2025-02-17 00:43 | PTCARENOTE ---
patient resting comfortably. VSS. Albumin 12.5 g % 5 given fro low urine output , remains on 6 L NC, O2Sat 95%, lungs clear and diminished at bases. AV paced, Dobutamine titrated down to 4, Had a 4 beat run of VT provider order amiodarone gtt.
[2025-02-17] MEDS: CORDARONE 518 MG IV (01:55)
[2025-02-17 02:10] LABS: Glucose - Point of Care 98 mg/dl (70-99)
[2025-02-17 03:35] LABS: Glucose - Point of Care 113 mg/dl (70-99)
[2025-02-17 03:38] LABS: Hematocrit 29.2 % (39.0-52.0); Hemoglobin 10.0 g/dL (13.0-18.0); Mean Corp Hgb Conc. 34.2 g/dL (33.0-37.0); Mean Corpuscular Volume 98.3 fL (80.0-94.0); Platelet Count 184 10^3/uL (130-400); Red Cell Dist. Width 12.5 % (11.5-14.5)
[2025-02-17] MEDS: ANCEF 5 IV ×2 (04:03→13:11)
[2025-02-17 04:16] LABS: Blood Urea Nitrogen 24 mg/dl (9-20); Calcium 8.1 mg/dl (8.4-10.2); Carbon Dioxide 29 mmol/L (22-30); Chloride 109 mmol/L (98-107); Estimated Creatinine Clearance 94 ml/min; Glucose 106 mg/dl (70-99); Magnesium 2.2 mg/dl (1.6-2.3); Potassium 4.1 mmol/L (3.5-5.1); Sodium 139 mmol/L (135-145); eGFR > 60.00
[2025-02-17 05:04] LABS: Glucose - Point of Care 112 mg/dl (70-99)
[2025-02-17] MEDS: TYLENOL 975 MG PO ×3 (05:55→21:51)
[2025-02-17] MEDS: SYNTHROID 150 MCG PO (05:55)
[2025-02-17 06:10] LABS: Glucose - Point of Care 117 mg/dl (70-99)
--- NOTE | 2025-02-17 06:32 | PTCARENOTE ---
patient bathed, and ekg completed,Chest Xray completed, denies pain, instructed on IS usage,remains AV paced, 100%, provider change pacer setting /10/24. Adams remaining in placed for critical I & O's, adams care done, low urine output over
night. Dressings and surigcal sites remain CDI , Sternal incision open to air, with glue.
--- NOTE | 2025-02-17 06:58 | W.PN.CT ---
Today's Communication / Plan
-
-pod #1
-no significant issues overnight. Hemodynamically and neurologically intact
-got 250 LR and 250 Albumin
-frequent PVCs, 4 beat run NSVT - started Amio drip @ 0.5--PVCs continued on Amio drip
-mvO2 63.5, CI 1.90, CO 4.05, SVR 1100 (on 3 of Dobut). Drips: Dobut 4, Amio 0.5, Insulin
-CT outputs: 2 meds 135/160, L pleur 30/140
-wean off Dobut as tolerated, then deline
-wean off O2 as tolerated
-d/c insulin
-maintain Buenrostro while on Dobutamine
-current meds (ASA, Plavix, Lipitor, Synthroid, Protonix). Holding po Amio and BB while on Dobutamine
-encourage IS, OOB
Assessment / Plan
-
- Severe mitral valve and tricuspid valve insufficiency and unstable angina with multivessel coronary artery disease- s/p CABG x 4 [in situ MAGANA to LAD, Ao to RSVG to OM 1 and LPL, Ao to RSVG to diagonal]; Radical mitral valve repair [32 mm Taylor
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 Sullivan on
02/16/25, pod #1
- Intraop SAJAN: LVEF preop was 45% with mild dilation of his left ventricle. He also had a strange opacity seen on echocardiogram next to his left atrial appendage concerning for either clot or a fibroelastoma. Following surgery his EF remained the
same at 40% on low-dose dobutamine. There were no new regional wall motion abnormalities. His RV function was normal.
- Multivessel coronary disease with unstable angina
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
- Hyperlipidemia
- Hypertension
- Paroxysmal atrial fibrillation- on Eliquis and Diltiazem preop
- Mild aortic valve insufficiency secondary to leaflet prolapse
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
- Functional tricuspid valve insufficiency, severe
- Acute postop blood loss anemia - stable, no transfusion
- Acute postop coagulopathy - s/p 2 FFPs and 2 unit platelets
- Acute postop atelectasis
- Acute postop hypovolemia with subsequent hypervolemia
Discussed patient care with: Nursing and Care Team
Subjective
-
Date of Service: February 17, 2025
Objective Data
-
PT 21.4 Sec (11.4-14.6) H 02/16/25 13:16
INR 1.80 02/16/25 13:16
APTT 35.0 Sec (23.4-35.0) 02/16/25 13:16
Vital Signs
Vital Signs
Temp Pulse Resp BP Pulse Ox
98.9 F 76 23 90/61 92
02/17/25 01:00 02/17/25 01:02 02/17/25 01:02 02/17/25 01:02 02/17/25 01:02
CT Intake/Output/Weight
02/16/25 02/16/25 02/17/25
06:59 18:59 06:59
Intake Total 618.6 / 1871.6 1253.0 / 1871.6
Output Total 640 / 1035 395 / 1035
Balance -21.4 / 836.6 858.0 / 836.6
SaO2: 92
Physical Exam
-
General: Awake and AOx3
Cardiovascular: Regular rate & rhythm, No Murmurs and Rub
Respiratory: Decreased Breath Sounds
Sternum: Stable
Incision: Clean, Dry and Intact
Extremities: Other (trace edema, 2+ DPs b/l)
Abdomen; soft, nontender, nondistended, + decreased bowel sounds
Data Reviewed
-
Lab Results: Results Reviewed
Medications: Active Meds Reviewed
Chest X-Ray: Report Reviewed and Image Reviewed
ECG: Report Reviewed and Image Reviewed
--- NOTE | 2025-02-17 07:32 | W.PN.CD ---
Today's Communication / Plan
-
remains in sinus
resume Eliquis when Ok from post op standpoint.
Wean dobutamine as tolerated
GDMT for CM as he recovers
Impression / Plan
-
74 y/o male (patient of Dr. Moore) with CAD, AFIB on Eliquis, hypertension, mitral regurgitation who is now s/p cardiac surgery as detailed below.
s/p CABG x 4, MV repair, TV repair, MAZE, and EVI exclusion, Dr. Sullivan 02/16/25
-Intra-op SAJAN with EF Overall LVEF is approximately 30-35%. Moderate to severe tricuspid regurgitation. Moderate to severe mitral regurgitation.
- remains in sinus by ECG 02/17/25
-per nursing report, received 2 platelets and 2 FFP intra-op
- Currently on dobutamine. Off Levophed. Pressors being weaned.
-GDMT when able for CM
HTN:
-monitor post-op
AFIB:
- History of persistent atrial fibrillation preoperatively. Currently in sinus rhythm postoperatively.
- Can continue amiodarone and metoprolol
-on Eliquis as OP- resume when safe post-op
-s/p MAZE and EVI clip as above
Physical Exam
Vital Signs/Labs
Vital Signs
Temp Pulse Resp BP Pulse Ox
98.8 F 70 21 114/65 94
02/17/25 07:00 02/17/25 07:25 02/17/25 07:25 02/17/25 02:00 02/17/25 07:25
02/16/25 02/17/25 02/18/25
06:59 06:59 06:59
Actual Weight 89.3 kg 90.7 kg
02/17/25 03:22
02/17/25 03:22
PT 21.4 Sec (11.4-14.6) H 02/16/25 13:16
INR 1.80 02/16/25 13:16
APTT 35.0 Sec (23.4-35.0) 02/16/25 13:16
Magnesium 2.2 mg/dl (1.6-2.3) 02/17/25 03:22
Physical Exam
Constitutional: No acute distress
EENT: Other (Neck has right IJ catheter/PA cath)
Cardiovascular: Rhythm & rate is regular
Respiratory: Wheeze Absent and Rhonchi Absent
GI: Soft
Neuro/Psych: Alert
Data Reviewed
-
Date of Service: February 17, 2025
Medical Decision Making: Reviewed Test Results
X-Ray/CT/US/MRI/NUC/PET: Report Reviewed by me
Medical Tests (PFT, Pathology etc): Report Reviewed by me
Labs: Labs Reviewed by me
[2025-02-17 07:55] LABS: Glucose - Point of Care 101 mg/dl (70-99)
--- NOTE | 2025-02-17 08:00 | PTCARENOTE ---
Assumed care of patient from material handler 2nd shift RN. AAO x 3, Some mental fogginess to current time however but appropriate. SR with 1 degree AVB, AV wires intact set to DDI 56. RT IJ cordis with swan at 55 cm. Lt radial A line transducing. Lines
leveled, recalibrated and flushed. 4 L NC 95%. Despite multiple educational attempts at teaching PT how to use incentive spirometer he currently does not have the ability to follow directions, Acapella given with good success. Chest tubes x 3 to
- 20 cm suction. No air leak or crepitus noted. Abdomen benign. Buenrostro draining clear yellow urine. Surgical sites well approximated. Pulses palpable. No edema appreciated.
--- NOTE | 2025-02-17 08:17 | W.PN.INTV ---
Today's Communication / Plan
Recommendations
- Encourage incentive spirometry lower lobe atelectasis
- Sit in chair as tolerated, increase activity as tolerated
- Wean dobutamine
Assessment
-
74-year-old gentleman with multivessel coronary artery disease s/p coronary artery bypass graft, mitral valve repair, tricuspid valve repair, maze procedure and left atrial appendage exclusion, POD # 1
Titrate off pressors per protocol, currently on dobutamine infusing at 4. Off Levophed. MAP of 77 with CVP of 10.
ECHO reviewed with normal function
Management of chest tubes per primary service
Extubated, on nasal canula. Saturating 95% on 4 ltr O2.
PA pressure 36/16 (22)
CXR with LLL atelectasis. Encouraged use of Incentive Spirometry, increase activity as tolerated, sit as tolerated.
Maintain supplement oxygen as needed
No prior known history of pulmonary disease
Can add nebulizers if needed
Aspiration precautions
Encouraged incentive spirometry, OOB/ambulation/early mobility
Advance diet as tolerated following extubation
GI prophylaxis: Protonix
Monitor critical I/O's
Buenrostro/chest tube per primary team
Hb/platelets postoperatively, mild drift, overall stable
Trend CBC for now
Can transfuse if indicated for Hb <7, plt <50 in surgical patients
DVT prophylaxis including SCDs
INR slightly elevated. Received 2 Platelets and 2 FFPs intra-op.
Insulin protocol initiated and ongoing
Transition to SQ/off as indicated per team
Other medical diagnoses:
- Atrial Fibrillation. Chronically has been on Eliquis and Cardizem ER 120 mg daily. Currently on Amiodarone infusion
- Hypertension
- Hypothyroidism
Critical Care time [43] mins -- The patient is admitted for acute critical illness for the treatment of vital organ failure and/or prevention of further life-threatening conditions. Total care includes time spent in review of history, physical exam,
medications, hemodynamic/ventilator parameters, laboratory data, imaging and discussion with house staff, pharmacy, respiratory therapy, endoscopy registered nurse, and nursing
Data:
LHC & RHC 01/2025: 1. Triple-vessel coronary artery disease as described in a codominant system
2. Mildly elevated biventricular filling pressures and normal cardiac output.
3. No significant aortic valve stenosis and no evidence of worsened moderate mitral valve regurgitation
CHEST CT 01/2025: Coronary artery calcifications, limited in evaluation, as noted above.
SAJAN 10/2024: Normal left ventricular systolic function .
Estimated ejection fraction 55 to 60%.
Moderate eccentric mitral regurgitation
Mild to moderate aortic regurgitation
Mild to moderate tricuspid regurgitation
No evidence of pulmonary hypertension
ECHO 06/2024: Top normal left ventricular chamber size.
Estimated left ventricular ejection fraction is 50% with mild global hypokinesis.
Severe biatrial enlargement.
At least moderate, highly eccentric, mitral regurgitation.
Mild to moderate aortic regurgitation.
Mild to moderate tricuspid regurgitation.
Estimated PASP 45 mmHg and estimated RA 8 mmHg.
Mildly dilated aortic root and ascending aorta.
Compared to echocardiogram 11/05/2019 the LV has increased in size/volume and is
now top normal in size with low normal systolic function. MR may have
progressed. Pulmonary hypertension is new.
Consider a SAJAN to exclude severe MR.
Subjective Dataa
Subjective Data
Date of Service:
Date of Service: February 17, 2025
Subjective:
Patient comfortably sitting in bed in no acute distress.
Review of Systems
Genitourinary: Other (No new symptoms reported.)
Objective Data
Data Reviewed
Vital Signs / I&O / Oxygen:
Vital Signs
Temp Pulse Resp BP Pulse Ox
98.7 F 70 20 109/64 95
02/17/25 07:57 02/17/25 07:57 02/17/25 07:57 02/17/25 07:49 02/17/25 07:57
Intake and Output
02/16/25 02/17/25 02/18/25
06:59 06:59 06:59
Intake Total 2907.3 / 3009.2 300.5 / 300.5
Output Total 1300 / 1325 65 / 65
Balance 1607.3 / 1684.2 235.5 / 235.5
SaO2 [CPAP/PSV] 93
SaO2 [SIMV] 97
SaO2 95
Nasal Cannula flow liters per 4
minute
Physical Exam
General: Comfortable
HEENT: Normocephalic
Cardiovascular: S1-S2
Respiratory: Clear and Non-Labored Respirations
GI: Soft and Non Distended
Neurology: Awake, Alert and Oriented
Skin: Warm
Labs/Micro/Reports
Lab Data
02/17/25 03:22
02/17/25 03:22
Laboratory Results
02/16/25
13:16
PT 21.4 H
INR 1.80
APTT 35.0
pH 7.43
pCO2 41
pO2 105
HCO3 27.2
O2 Delivery Level
[2025-02-17] MEDS: PROTONIX 40 MG PO (08:18)
[2025-02-17] MEDS: PLAVIX 75 MG PO (08:18)
[2025-02-17] MEDS: BACTROBAN 2% OINTMENT 1 APPLIC NASAL ×2 (08:18→20:00)
[2025-02-17] MEDS: SENOKOT 8.6 MG PO ×2 (08:19→20:33)
[2025-02-17] MEDS: MAGNESIUM OXIDE 400 MG PO ×2 (08:19→20:33)
[2025-02-17] MEDS: NEURONTIN 100 MG PO ×3 (08:19→21:50)
[2025-02-17] MEDS: LOW STRENGTH ASPIRIN 81 MG PO (08:19)
[2025-02-17 09:51] LABS: Glucose - Point of Care 116 mg/dl (70-99)
--- NOTE | 2025-02-17 10:32 | PTCARENOTE ---
Lt pleural chest tube removed per order. Pt tolerated. w/o issue. Assist x 2 oob to chair. Initially dizzy with BP drop down to 84/55. Pt recovered quickly w/o intervention. No dumping from chest tubes noted.
--- NOTE | 2025-02-17 11:50 | CM ---
Addendum entered by Marisol Sinclair 02/17/25 11:54:
We reviewed advanced directive information. Gave him the form to review.
Original Note:
Reviewed chart. Met with Mr. Law and his son to review discharge plans. He states he is feeling well. He states prior to admission he resides with his spouse in a two story home with one step to enter. He states he has a full flight of steps to
get to bedroom. He states he has a full bathroom on each level. He states prior to admission he was independent with ambulation and adls. He has a single point cane at home. He has a prescription plan. We reviewed a home visit by [facility] Transitional
Care Nurse. He is agreeable to a home visit. Medical work-up in progress. The discharge plan is to return home with his spouse and a home visit by the Transitional Care Nurse when medically stable.
[2025-02-17] MEDS: NSS IV (13:16)
--- NOTE | 2025-02-17 13:29 | PTCARENOTE ---
Tolerated sitting up in chair x 4 hours. Attempt made to lower dobutamine infusion however mixed venous drifted down returned to prior rate. VSS
--- NOTE | 2025-02-17 13:38 | W.PN.ANS.POP ---
Anesthesia Post Operative
- Anesthesia Post Op Note
Vital Signs Stable-See Nursing Note: Yes
Airway Patent: Yes
Adequate Pain Control: Yes
Change in Mental Status: No
Current Postoperative Nausea & Vomiting: No
Anesthesia Complications: No
General Anesthetic Recall: No
Unplanned Admission: No
Post Op Hydration Adequate: Yes
[2025-02-17] MEDS: FERRLECIT 110 MG IV (14:05)
[2025-02-17] MEDS: FLEXBUMIN 50 IV ×2 (14:25→22:50)
[2025-02-17] MEDS: FLEXERIL 5 MG PO (15:26)
[2025-02-17] MEDS: LIPITOR 40 MG PO (17:43)
--- NOTE | 2025-02-17 20:20 | PTCARENOTE ---
Assumed care of patient from prior shift RN at 1900. Patient OOB to chair, denies pain, alert and oriented. NSR with 1 degree Block. Has right IJ cordis and swan measuring at 55 cm. Pacer wires - AV wires intact set to DDI 40//8. On 4 2 L NC
95%, lungs clear and diminished at bases. Has 2 Chest tubes remaining set to - 20 cm suction. Bowel sounds present, soft and non tender. Buenrostro draining clear dark yellow urine. Surgical sites well approximated. Pulses palpable. see workflow
fro detials on assessment.
[2025-02-17 20:47] LABS: Hepatitis C Antibody Negative (Negative)
[2025-02-18] VITALS (24 sets, daily range): BP systolic 94–126; BP diastolic 59–87; PULSE 67; O2SAT 95; BMI 29.4
--- NOTE | 2025-02-18 01:22 | PTCARENOTE ---
patient sleeping, VVS, urineout 25-40/hour, remains on Dubut ad amino.
[2025-02-18 03:35] LABS: Hematocrit 32.2 % (39.0-52.0); Hemoglobin 10.7 g/dL (13.0-18.0); Mean Corp Hgb Conc. 33.2 g/dL (33.0-37.0); Mean Corpuscular Volume 100.9 fL (80.0-94.0); Platelet Count 159 10^3/uL (130-400); Red Cell Dist. Width 12.8 % (11.5-14.5)
[2025-02-18 04:09] LABS: Blood Urea Nitrogen 40 mg/dl (9-20); Calcium 8.4 mg/dl (8.4-10.2); Carbon Dioxide 28 mmol/L (22-30); Chloride 104 mmol/L (98-107); Estimated Creatinine Clearance 66 ml/min; Glucose 135 mg/dl (70-99); Magnesium 2.3 mg/dl (1.6-2.3); Potassium 4.4 mmol/L (3.5-5.1); Sodium 135 mmol/L (135-145); eGFR > 60.00
[2025-02-18] MEDS: TYLENOL 975 MG PO ×3 (05:56→21:15)
[2025-02-18] MEDS: SYNTHROID 150 MCG PO (05:56)
[2025-02-18] MEDS: FLEXBUMIN 50 IV (07:04)
[2025-02-18] MEDS: DOBUTREX 500 MG 250 IV (07:09)
--- NOTE | 2025-02-18 07:56 | W.PN.CT ---
Today's Communication / Plan
-
-pod #2
-no significant issues overnight. Hemodynamically and neurologically intact
-mvO2 78.8. Drips: Dobut 4, Amio 0.5
-CT outputs: 2 meds 60/225 in 12/24 hrs
-wean off Dobut as tolerated, then deline
-wean off O2 as tolerated
-maintain Buenrostro while on Dobutamine
-current meds (ASA, Plavix, Lipitor, Synthroid, Protonix). Holding po Amio and BB while on Dobutamine
-encourage IS, OOB
Assessment / Plan
-
- Severe mitral valve and tricuspid valve insufficiency and unstable angina with multivessel coronary artery disease- s/p CABG x 4 [in situ MAGANA to LAD, Ao to RSVG to OM 1 and LPL, Ao to RSVG to diagonal]; Radical mitral valve repair [32 mm Taylor
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 Sullivan on
02/16/25, pod #2
- Intraop SAJAN: LVEF preop was 45% with mild dilation of his left ventricle. He also had a strange opacity seen on echocardiogram next to his left atrial appendage concerning for either clot or a fibroelastoma. Following surgery his EF remained the
same at 40% on low-dose dobutamine. There were no new regional wall motion abnormalities. His RV function was normal.
- Multivessel coronary disease with unstable angina
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
- Hyperlipidemia
- Hypertension
- Paroxysmal atrial fibrillation- on Eliquis and Diltiazem preop
- Mild aortic valve insufficiency secondary to leaflet prolapse
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
- Functional tricuspid valve insufficiency, severe
- Acute postop blood loss anemia - stable, no transfusion
- Acute postop coagulopathy - s/p 2 FFPs and 2 unit platelets
- Acute postop atelectasis
- Acute postop hypovolemia with subsequent hypervolemia
Discussed patient care with: Nursing and Care Team
Subjective
-
Date of Service: February 18, 2025
Objective Data
-
Lab Results
02/18/25 03:14
02/18/25 03:14
PT 21.4 Sec (11.4-14.6) H 02/16/25 13:16
INR 1.80 02/16/25 13:16
APTT 35.0 Sec (23.4-35.0) 02/16/25 13:16
Vital Signs
Vital Signs
Temp Pulse Resp BP Pulse Ox
99.6 F 66 16 108/70 97
02/18/25 03:00 02/18/25 02:35 02/18/25 03:00 02/18/25 02:00 02/18/25 03:00
CT Intake/Output/Weight
02/17/25 02/18/25 02/18/25
18:59 06:59 18:59
Intake Total 2022.0 / 2886.2 864.2 / 2886.2
Output Total 535 / 885 350 / 885
Balance 1487.0 / 2001.2 514.2 / 2001.2
SaO2: 97
Physical Exam
-
General: Awake and AOx3
Cardiovascular: Regular rate & rhythm, No Murmurs and Rub
Respiratory: Decreased Breath Sounds
Sternum: Stable
Incision: Clean, Dry and Intact
Abdomen; soft, nontender, nondistended, + decreased bowel sounds
Extremities: Other (1+edema, 2+ DPs b/l)
Data Reviewed
-
Lab Results: Results Reviewed
Medications: Active Meds Reviewed
Chest X-Ray: Report Reviewed and Image Reviewed
ECG: Report Reviewed and Image Reviewed
--- NOTE | 2025-02-18 08:00 | PTCARENOTE ---
Assumed care of patient from podiatry assistant RN. AAO x 3 sitting up in the chair. SR on monitor. Epicardial wires to back up of DDI 40. No pacing noted. Rt IJ cordis with swan at 55. Lines leveled, recalibrated and flushed. Dobutamine and Amio
infusing on handoff. 2 L NC 97%. Is to 500. Chest tubes x 2 to - 20 cm suction. No air leak or crepitus noted. Abdomen soft and non tender. Buenrostro draining clear yellow urine. Surgical sites c,d,i. Pulses palpable. Plan for day discussed.
[2025-02-18] MEDS: BACTROBAN 2% OINTMENT 1 APPLIC NASAL ×2 (08:27→20:32)
[2025-02-18] MEDS: SENOKOT 8.6 MG PO ×2 (08:28→20:29)
[2025-02-18] MEDS: LOW STRENGTH ASPIRIN 81 MG PO (08:28)
[2025-02-18] MEDS: PLAVIX 75 MG PO (08:28)
[2025-02-18] MEDS: MAGNESIUM OXIDE 400 MG PO ×2 (08:28→20:29)
[2025-02-18] MEDS: PROTONIX 40 MG PO (08:28)
[2025-02-18] MEDS: NEURONTIN 100 MG PO ×3 (08:28→21:15)
[2025-02-18] MEDS: PACERONE 200 MG PO ×2 (08:43→20:30)
[2025-02-18] MEDS: LASIX 40 MG IV (08:43)
--- NOTE | 2025-02-18 08:48 | W.PN.INTV ---
Today's Communication / Plan
Recommendations
- Continue to wean dobutamine as tolerated
- Increase activity, still active spirometry
- Bookkeeping Machine Mechanic service will sign off once patient is transferred out of CVICU
Assessment
-
74-year-old gentleman with multivessel coronary artery disease s/p coronary artery bypass graft, mitral valve repair, tricuspid valve repair, maze procedure and left atrial appendage exclusion, POD # 2
Titrate off pressors per protocol, currently on dobutamine infusing at 4. Off Levophed. MAP of 80 with CVP of 8.
ECHO reviewed with normal function
Management of chest tubes per primary service
Extubated, on nasal canula. Saturating 96% on 3 ltr O2.
PA pressure 39/15 (23)
CXR with improving atelectasis and better aerated. Encouraged use of Incentive Spirometry, increase activity as tolerated, sit as tolerated. Able to pull up to 1000 ml on spirometry
Maintain supplement oxygen as needed
No prior known history of pulmonary disease. Quite smoking 40 tears ago
Can add nebulizers if needed
Aspiration precautions
Encouraged incentive spirometry, OOB/ambulation/early mobility
Advance diet as tolerated following extubation
GI prophylaxis: Protonix
Monitor critical I/O's
Buenrostro/chest tube per primary team
Hb/platelets postoperatively, mild drift, overall stable
Trend CBC for now
Can transfuse if indicated for Hb <7, plt <50 in surgical patients
DVT prophylaxis including SCDs
INR slightly elevated. Received 2 Platelets and 2 FFPs intra-op.
Insulin per protocol.
Other medical diagnoses:
- Atrial Fibrillation. Chronically has been on Eliquis and Cardizem ER 120 mg daily. Currently on Amiodarone PO
- Hypertension
- Hypothyroidism
Critical Care time [41] mins -- The patient is admitted for acute critical illness for the treatment of vital organ failure and/or prevention of further life-threatening conditions. Total care includes time spent in review of history, physical exam,
medications, hemodynamic/ventilator parameters, laboratory data, imaging and discussion with house staff, pharmacy, respiratory therapy, nurse transition, and nursing
Data:
LHC & RHC 01/2025: 1. Triple-vessel coronary artery disease as described in a codominant system
2. Mildly elevated biventricular filling pressures and normal cardiac output.
3. No significant aortic valve stenosis and no evidence of worsened moderate mitral valve regurgitation
CHEST CT 01/2025: Coronary artery calcifications, limited in evaluation, as noted above.
SAJAN 10/2024: Normal left ventricular systolic function .
Estimated ejection fraction 55 to 60%.
Moderate eccentric mitral regurgitation
Mild to moderate aortic regurgitation
Mild to moderate tricuspid regurgitation
No evidence of pulmonary hypertension
ECHO 06/2024: Top normal left ventricular chamber size.
Estimated left ventricular ejection fraction is 50% with mild global hypokinesis.
Severe biatrial enlargement.
At least moderate, highly eccentric, mitral regurgitation.
Mild to moderate aortic regurgitation.
Mild to moderate tricuspid regurgitation.
Estimated PASP 45 mmHg and estimated RA 8 mmHg.
Mildly dilated aortic root and ascending aorta.
Compared to echocardiogram 11/05/2019 the LV has increased in size/volume and is
now top normal in size with low normal systolic function. MR may have
progressed. Pulmonary hypertension is new.
Consider a SAJAN to exclude severe MR.
Subjective Dataa
Subjective Data
Date of Service:
Date of Service: February 18, 2025
Subjective:
Patient comfortably sitting in bed in no acute distress.
Review of Systems
Genitourinary: Other (All 14 systems reviewed and negative except as stated above in the history of present illness.)
Objective Data
Data Reviewed
Vital Signs / I&O / Oxygen:
Vital Signs
Temp Pulse Resp BP Pulse Ox
99.6 F 66 16 108/70 97
02/18/25 03:00 02/18/25 02:35 02/18/25 03:00 02/18/25 02:00 02/18/25 08:00
Intake and Output
02/17/25 02/18/25 02/19/25
06:59 06:59 06:59
Intake Total 2907.3 / 3009.2 2886.2 / 2886.2
Output Total 1300 / 1325 885 / 885
Balance 1607.3 / 1684.2 2000.2 / 2000.2
SaO2 [CPAP/PSV] 93
SaO2 [SIMV] 97
SaO2 97
Nasal Cannula flow liters per 2
minute
Physical Exam
General: Comfortable
HEENT: Normocephalic
Cardiovascular: S1-S2 and Peripheral Edema (Trace pedal edema)
Respiratory: Clear and Non-Labored Respirations
GI: Soft and Non Distended
Neurology: Awake, Alert and Oriented
Skin: Warm
Labs/Micro/Reports
Lab Data
02/18/25 03:14
02/18/25 03:14
[2025-02-18] MEDS: NSS IV (09:39)
--- NOTE | 2025-02-18 09:48 | W.PN.CD ---
Today's Communication / Plan
-
Agree with care
Impression / Plan
-
74 y/o male (patient of Dr. Moore) with CAD, AFIB on Eliquis, hypertension, mitral regurgitation who is now s/p cardiac surgery as detailed below.
s/p CABG x 4, MV repair, TV repair, MAZE, and EVI exclusion, Dr. Sullivan 02/16/25
-Intra-op SAJAN with EF Overall LVEF is approximately 30-35%. Moderate to severe tricuspid regurgitation. Moderate to severe mitral regurgitation.
- POST OP portion of intraop SAJAN: LVEF improved to 35-40%, NO MR, no ODELL, MV mean 2 mmHg, No TR
- remains in sinus on tele, no afib
- Drips coming off
-GDMT when able for CM
HTN:
-monitor post-op
AFIB:
- History of persistent atrial fibrillation preoperatively. Currently in sinus rhythm postoperatively.
- Can continue amiodarone and metoprolol
-on Eliquis as OP- resume when safe post-op
-s/p MAZE and EVI clip as above
Subjective:
No CP
Physical Exam
Vital Signs/Labs
Vital Signs
Temp Pulse Resp BP Pulse Ox
98.6 F 63 17 110/67 94
02/18/25 08:00 02/18/25 08:50 02/18/25 08:50 02/18/25 08:00 02/18/25 08:56
02/17/25 02/18/25 02/19/25
06:59 06:59 06:59
Actual Weight 90.7 kg 92.8 kg
02/18/25 03:14
02/18/25 03:14
PT 21.4 Sec (11.4-14.6) H 02/16/25 13:16
INR 1.80 02/16/25 13:16
APTT 35.0 Sec (23.4-35.0) 02/16/25 13:16
Magnesium 2.3 mg/dl (1.6-2.3) 02/18/25 03:14
Physical Exam
Constitutional: No acute distress
EENT: Anicteric
Cardiovascular: Rhythm & rate is regular, Pedal edema present (mild 1+), S1S2 is normal and Rub absent
Respiratory: Respiratory effort normal and Lungs clear to auscul. (but decreased 1/3 of left lower lung)
GI: Soft and Distention absent
Neuro/Psych: AO x 3
Data Reviewed
-
Date of Service: February 18, 2025
--- NOTE | 2025-02-18 11:11 | PTCARENOTE ---
Mediastinal chest tubes removed per Md order, Mixed venous obtained and sent. VSS. Assessment otherwise unchanged from prior,
--- NOTE | 2025-02-18 11:16 | PTCARENOTE ---
Epicardial wires insulated.
[2025-02-18] MEDS: FERRLECIT 110 MG IV (14:00)
[2025-02-18] MEDS: CORDARONE 103 MG IV (14:30)
--- NOTE | 2025-02-18 14:46 | PTCARENOTE ---
1405, monitor alarmed for VT on monitor. Rate 100 Pt completely asymptomatic talking On cell phone. BP cycled wnl. CT HEEL SLICKER ordered amio bolus, and administered.
--- NOTE | 2025-02-18 14:47 | PTCARENOTE ---
405, monitor alarmed for VT on monitor. Rate 100 Pt completely asymptomatic talking On cell phone. BP cycled wnl. Converted to NSR in approx 20 seconds w/o intervention CT POWER TRANSFORMER INSPECTOR ordered amio bolus, and administered.
--- NOTE | 2025-02-18 15:00 | CM ---
Reviewed chart. Met with Mr. Law to review discharge plans. He states he is feeling well. We reviewed a home visit by the Transitional Care Nurse. He is agreeable to a home visit. Prior to admission he resides with his spouse in a two story home
with one step to enter. He has a full flight of steps to get to bedroom. He states he has a full bathroom on each level.Prior to admission he was independent with ambulation and adls. He has a single point cane at home. He has a prescription plan.
Will need to see his current functional level to see if he will have any skilled care Medical work-up in progress. The discharge plan is to return home with his spouse and a home visit by the Transitional Care Nurse when medically stable.
--- NOTE | 2025-02-18 16:12 | PTCARENOTE ---
1405, monitor alarmed for VT on monitor. Rate 100 Pt completely asymptomatic talking On cell phone. BP cycled wnl. Converted to NSR in approx 20 seconds w/o intervention CT STRIPPER AND OPAQUER APPRENTICE ordered amio bolus, and administered.
[2025-02-18] MEDS: LIPITOR 40 MG PO (16:39)
--- NOTE | 2025-02-18 20:00 | PTCARENOTE ---
Assumed care of the patient at 1900. Patient AOx3, pleasant, ALTURAS. SB/SR on CM, long CA interval - CVPA aware; AV wires insulated, hear tones audible, no edema, pulses palpable. Lungs dim at the bases on RA. Abdomen SNT normoactive, patient reports
passing flatus. Buenrostro in place draining clear, yellow urine. All surgical sites stable. RIJ Cordis/swan at 55, PIV x1; janet leveled, zeroed, and calibrated. On Dobutamine. See nursing work list for additional intervention details. Assessment of
needs ongoing, call bustillos within reach.
[2025-02-19] VITALS (24 sets, daily range): BP systolic 99–142; BP diastolic 57–90; PULSE 52; O2SAT 94–95; BMI 29.5
--- NOTE | 2025-02-19 | PTCARENOTE ---
2LNC added for pt desatting to 87-89% on room air while asleep. Subsequently satting 95%+, pt states he is comfortable. Sleeping between care, no other acute changes.
[2025-02-19 04:39] LABS: Hematocrit 28.4 % (39.0-52.0); Hemoglobin 9.4 g/dL (13.0-18.0); Mean Corp Hgb Conc. 33.1 g/dL (33.0-37.0); Mean Corpuscular Volume 103.6 fL (80.0-94.0); Platelet Count 178 10^3/uL (130-400); Red Cell Dist. Width 12.7 % (11.5-14.5)
[2025-02-19 05:03] LABS: Blood Urea Nitrogen 42 mg/dl (9-20); Calcium 8.2 mg/dl (8.4-10.2); Carbon Dioxide 31 mmol/L (22-30); Chloride 105 mmol/L (98-107); Estimated Creatinine Clearance 73 ml/min; Glucose 110 mg/dl (70-99); Magnesium 2.4 mg/dl (1.6-2.3); Potassium 4.4 mmol/L (3.5-5.1); Sodium 136 mmol/L (135-145); eGFR > 60.00
[2025-02-19] MEDS: SYNTHROID 150 MCG PO (06:13)
[2025-02-19] MEDS: TYLENOL 975 MG PO ×2 (06:14→19:58)
--- NOTE | 2025-02-19 09:14 | PTCARENOTE ---
assumed care of pt from previous shift RN, sinus bradycardia on tele, + peripheral pulses, trace edema to bilateral lower extremities. Lungs diminished, coughing and deep breathing encouraged. +bs, tolerating PO intake, adams draining geovanna urine.
Post op sites stable. Bedside echo completed. Plan of care reviewed and questions encouraged.
--- NOTE | 2025-02-19 09:31 | W.PN.CT ---
Today's Communication / Plan
-
-pod #3
-no issues overnight
-mVO2 63.7 this am. Dobut was turned off at 7 am. Will re-check mVO2 at 10 am
-wean off O2 as tolerated
-ambulate, encouarage IS
Assessment / Plan
-
- Severe mitral valve and tricuspid valve insufficiency and unstable angina with multivessel coronary artery disease- s/p CABG x 4 [in situ MAGANA to LAD, Ao to RSVG to OM 1 and LPL, Ao to RSVG to diagonal]; Radical mitral valve repair [32 mm Taylor
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 Sullivan on
02/16/25, pod #3
- Intraop SAJAN: LVEF preop was 45% with mild dilation of his left ventricle. He also had a strange opacity seen on echocardiogram next to his left atrial appendage concerning for either clot or a fibroelastoma. Following surgery his EF remained the
same at 40% on low-dose dobutamine. There were no new regional wall motion abnormalities. His RV function was normal.
- Multivessel coronary disease with unstable angina
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
- Hyperlipidemia
- Hypertension
- Paroxysmal atrial fibrillation- on Eliquis and Diltiazem preop
- Mild aortic valve insufficiency secondary to leaflet prolapse
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
- Functional tricuspid valve insufficiency, severe
- Acute postop blood loss anemia - stable, no transfusion
- Acute postop coagulopathy - s/p 2 FFPs and 2 unit platelets
- Acute postop atelectasis
- Acute postop hypovolemia with subsequent hypervolemia
Discussed patient care with: Nursing and Care Team
Subjective
-
Date of Service: February 19, 2025
Objective Data
-
Lab Results
02/19/25 04:22
02/19/25 04:22
PT 21.4 Sec (11.4-14.6) H 02/16/25 13:16
INR 1.80 02/16/25 13:16
APTT 35.0 Sec (23.4-35.0) 02/16/25 13:16
Vital Signs
Vital Signs
Temp Pulse Resp BP Pulse Ox
99 F 54 18 99/57 95
02/19/25 08:00 02/19/25 08:45 02/19/25 08:45 02/19/25 08:00 02/19/25 08:00
CT Intake/Output/Weight
02/18/25 02/19/25 02/19/25
18:59 06:59 18:59
Intake Total 1135.9 / 1723.5 587.6 / 1723.5 20 / 20
Output Total 680 / 1284 604 / 1284 40 / 40
Balance 455.9 / 439.5 -16.4 / 439.5 -20 / -20
SaO2: 95
Physical Exam
-
General: Awake and AOx3
Cardiovascular: Regular rate & rhythm, No Murmurs and Rub
Respiratory: Decreased Breath Sounds
Sternum: Stable
Incision: Clean, Dry and Intact
Abdomen; soft, nontender, nondistended, + decreased bowel sounds
Extremities: Other (1+edema, 2+ DPs b/l)
Data Reviewed
-
Lab Results: Results Reviewed
Medications: Active Meds Reviewed
Chest X-Ray: Report Reviewed and Image Reviewed
ECG: Report Reviewed and Image Reviewed
--- NOTE | 2025-02-19 09:40 | W.PN.INTV ---
Addendum entered and electronically signed by Rosalva Zavaleta MD 02/20/25 09:48:
02/20
Patient transferred to Telemetry service
Emulsion Operator service will sign off, please call as needed.
Original Note:
Today's Communication / Plan
Recommendations
- Incentive spirometry
- Emulsion Operator service will sign off once patient is transferred out of ICU
Assessment
-
74-year-old gentleman with multivessel coronary artery disease s/p coronary artery bypass graft, mitral valve repair, tricuspid valve repair, maze procedure and left atrial appendage exclusion, POD # 3
Titrated off pressors per protocol, blood pressure 99 x 57. Not requiring any pressors
ECHO reviewed with normal function
Management of chest tubes per primary service
Extubated, on nasal canula. Saturating 95% on 2 ltr O2.
PA pressure 44/20 (28)
CXR with mild left-sided atelectasis, ?trace pleural effusion.
Maintain supplement oxygen as needed
No prior known history of pulmonary disease. Quite smoking 40 tears ago
Can add nebulizers if needed
Aspiration precautions
Encouraged incentive spirometry, OOB/ambulation/early mobility
Advance diet as tolerated following extubation
GI prophylaxis: Protonix
Monitor critical I/O's
Buenrostro/chest tube per primary team
Hb/platelets postoperatively, mild drift, overall stable
Trend CBC for now
Can transfuse if indicated for Hb <7, plt <50 in surgical patients
DVT prophylaxis including SCDs
INR slightly elevated. Received 2 Platelets and 2 FFPs intra-op.
Insulin has been transitioned off
Other medical diagnoses:
- Atrial Fibrillation. Chronically has been on Eliquis and Cardizem ER 120 mg daily. Currently on Amiodarone PO
- Hypertension
- Hypothyroidism
Critical Care time [38] mins -- The patient is admitted for acute critical illness for the treatment of vital organ failure and/or prevention of further life-threatening conditions. Total care includes time spent in review of history, physical exam,
medications, hemodynamic/ventilator parameters, laboratory data, imaging and discussion with house staff, pharmacy, respiratory therapy, lumite injector, and nursing
Data:
[facility] 01/2025: 1. Triple-vessel coronary artery disease as described in a codominant system
2. Mildly elevated biventricular filling pressures and normal cardiac output.
3. No significant aortic valve stenosis and no evidence of worsened moderate mitral valve regurgitation
CHEST CT 01/2025: Coronary artery calcifications, limited in evaluation, as noted above.
SAJAN 10/2024: Normal left ventricular systolic function .
Estimated ejection fraction 55 to 60%.
Moderate eccentric mitral regurgitation
Mild to moderate aortic regurgitation
Mild to moderate tricuspid regurgitation
No evidence of pulmonary hypertension
ECHO 06/2024: Top normal left ventricular chamber size.
Estimated left ventricular ejection fraction is 50% with mild global hypokinesis.
Severe biatrial enlargement.
At least moderate, highly eccentric, mitral regurgitation.
Mild to moderate aortic regurgitation.
Mild to moderate tricuspid regurgitation.
Estimated PASP 45 mmHg and estimated RA 8 mmHg.
Mildly dilated aortic root and ascending aorta.
Compared to echocardiogram 11/05/2019 the LV has increased in size/volume and is
now top normal in size with low normal systolic function. MR may have
progressed. Pulmonary hypertension is new.
Consider a SAJAN to exclude severe MR.
Subjective Dataa
Subjective Data
Date of Service:
Date of Service: February 19, 2025
Subjective:
Patient comfortably sitting in chair in no acute distress.
Review of Systems
Genitourinary: Other (All 14 systems reviewed and negative except as stated above in the history of present illness.)
Objective Data
Data Reviewed
Vital Signs / I&O / Oxygen:
Vital Signs
Temp Pulse Resp BP Pulse Ox
99 F 54 18 99/57 95
02/19/25 08:00 02/19/25 08:45 02/19/25 08:45 02/19/25 08:00 02/19/25 09:36
Intake and Output
02/18/25 02/19/25 02/20/25
06:59 06:59 06:59
Intake Total 2886.2 / 2886.2 1723.5 / 1723.5
Output Total 885 / 885 1284 / 1284 40 / 40
Balance 2000. / 2000. 439.5 / 439.5 -
SaO2 [CPAP/PSV] 93
SaO2 [SIMV] 97
SaO2 95
Nasal Cannula flow liters per 2
minute
Physical Exam
General: Comfortable
HEENT: Normocephalic
Cardiovascular: S1-S2 and Peripheral Edema (Trace pedal edema)
Respiratory: Clear and Non-Labored Respirations
GI: Soft and Non Distended
Neurology: Awake, Alert and Oriented
Skin: Warm
Labs/Micro/Reports
Lab Data
02/19/25 04:22
02/19/25 04:22
[2025-02-19] MEDS: PLAVIX 75 MG PO (10:25)
[2025-02-19] MEDS: PROTONIX 40 MG PO (10:25)
[2025-02-19] MEDS: NEURONTIN 100 MG PO ×3 (10:25→19:57)
[2025-02-19] MEDS: MAGNESIUM OXIDE 400 MG PO ×2 (10:26→19:59)
[2025-02-19] MEDS: LOW STRENGTH ASPIRIN 81 MG PO (10:26)
[2025-02-19] MEDS: LASIX 60 MG IV ×2 (10:26→15:36)
[2025-02-19] MEDS: BACTROBAN 2% OINTMENT 1 APPLIC NASAL ×2 (10:27→19:59)
[2025-02-19] MEDS: NSS 500 IV (10:27)
[2025-02-19] MEDS: SENOKOT PO (10:27)
[2025-02-19] MEDS: PACERONE PO (10:47)
--- NOTE | 2025-02-19 11:14 | PTCARENOTE ---
mv02 result reported [address] URSZULA.
--- NOTE | 2025-02-19 11:54 | PTCARENOTE ---
Milton removed without incident.
[2025-02-19] MEDS: FERRLECIT 110 MG IV (14:04)
[2025-02-19] MEDS: TYLENOL PO (14:05)
[2025-02-19] MEDS: LIPITOR 40 MG PO (15:36)
--- NOTE | 2025-02-19 16:44 | PTCARENOTE ---
patient remains w HR 40's the entire day, BP stable, tolerated walk in hallway. EKG obtained per CT ROSAMARIA request and epicardial pacing initiated at DDDI 70/0.[address] rosamaria.
[2025-02-19] MEDS: SENOKOT 8.6 MG PO (20:00)
--- NOTE | 2025-02-19 20:00 | PTCARENOTE ---
assumed care of patient @ 1900. received pt sitting in chair, Aox3. EAGLE b/l. AV paced on DDD at 70. BP stable. +pulses, trace edema. Lungs clear, diminished on room air satting mid 90s. +Bs, no BM yet. adams present draining clear geovanna urine.
Sternum KRYSTYNA, B/L leg harvest sites CDI, PARATRANSIT OPERATOR. PIV x2 patent, R IJ Cordis with KVO patent. Pt assisted back to bed, now resting comfortably with call bustillos within reach.
[2025-02-20] VITALS (16 sets, daily range): BP systolic 106–141; BP diastolic 63–89; BMI 29.4
--- NOTE | 2025-02-20 01:45 | PTCARENOTE ---
pt resting comfortably, no change in assessment .
[2025-02-20 03:28] LABS: Hematocrit 29.5 % (39.0-52.0); Hemoglobin 9.7 g/dL (13.0-18.0); Mean Corp Hgb Conc. 32.9 g/dL (33.0-37.0); Mean Corpuscular Volume 102.1 fL (80.0-94.0); Platelet Count 233 10^3/uL (130-400); Red Cell Dist. Width 12.8 % (11.5-14.5)
[2025-02-20 03:44] LABS: Blood Urea Nitrogen 38 mg/dl (9-20); Calcium 8.2 mg/dl (8.4-10.2); Carbon Dioxide 32 mmol/L (22-30); Chloride 104 mmol/L (98-107); Estimated Creatinine Clearance 82 ml/min; Glucose 114 mg/dl (70-99); Magnesium 2.2 mg/dl (1.6-2.3); Potassium 4.4 mmol/L (3.5-5.1); Sodium 138 mmol/L (135-145); eGFR > 60.00
--- NOTE | 2025-02-20 04:00 | PTCARENOTE ---
labs drawn and sent, pt resting comfortably , no change in assessment .
--- NOTE | 2025-02-20 05:18 | W.PN.CT ---
Addendum entered and electronically signed by Ilan Sullivan MD 02/20/25 09:01:
I saw and examined the patient.
The PA's note was reviewed and I agree with the note.
Comment:
Looks good this morning, walking around. Echo was reviewed by myself yesterday, EF is down as expected post valve repair. No significant MR no significant TR. Continue gentle diuresis. Still pacing at this time, possible complete heart block
underlying yesterday. Looks like he is A-fib underlying today. Will possibly need a pacemaker implantation Friday. Make n.p.o. at midnight will discuss the EP tomorrow morning.
Original Note:
Today's Communication / Plan
-
-pod #4
-no issues overnight
-mVO2 63% this am. Dobutamine off yesterday.
-echo 02/19 LVEF 38%, significant reduction in MR (MG 14/4 mmHg), TR (MG 2 mmHg)
-Bradycardia to low 40s noted later in the day, sluggish UOP, started on DDI pacing
-~1400 cc UOP in 24 hrs with diuresis, SCr stable
-wean off O2 as tolerated
-ambulate, encourage IS
Assessment / Plan
-
- Severe mitral valve and tricuspid valve insufficiency and unstable angina with multivessel coronary artery disease- s/p CABG x 4 [in situ MAGANA to LAD, Ao to RSVG to OM 1 and LPL, Ao to RSVG to diagonal]; Radical mitral valve repair [32 mm Taylor
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 Sullivan on
02/16/25, pod #4
- Intraop SAJAN: LVEF preop was 45% with mild dilation of his left ventricle. He also had a strange opacity seen on echocardiogram next to his left atrial appendage concerning for either clot or a fibroelastoma. Following surgery his EF remained the
same at 40% on low-dose dobutamine. There were no new regional wall motion abnormalities. His RV function was normal.
- Multivessel coronary disease with unstable angina
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
- Hyperlipidemia
- Hypertension
- Paroxysmal atrial fibrillation- on Eliquis and Diltiazem preop
- Mild aortic valve insufficiency secondary to leaflet prolapse
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
- Functional tricuspid valve insufficiency, severe
- Acute postop blood loss anemia - stable, no transfusion
- Acute postop coagulopathy - s/p 2 FFPs and 2 unit platelets
- Acute postop atelectasis
- Acute postop hypovolemia with subsequent hypervolemia
Subjective
-
Date of Service: February 20, 2025
Objective Data
-
Lab Results
02/20/25 03:09
02/20/25 03:09
PT 21.4 Sec (11.4-14.6) H 02/16/25 13:16
INR 1.80 02/16/25 13:16
APTT 35.0 Sec (23.4-35.0) 02/16/25 13:16
Vital Signs
Vital Signs
Temp Pulse Resp BP Pulse Ox
98.6 F 70 16 123/71 96
02/20/25 03:57 02/20/25 03:10 02/20/25 03:57 02/20/25 03:10 02/20/25 03:57
CT Intake/Output/Weight
02/19/25 02/19/25 02/20/25
06:59 18:59 06:59
Intake Total 587.6 / 1723.5 200 / 300 100 / 300
Output Total 604 / 1284 920 / 1395 475 / 1395
Balance -16.4 / 439.5 -720 / -1095 -375 / -1095
SaO2: 96
Physical Exam
-
General: Awake, Oriented and AOx3
Cardiovascular: Regular rate & rhythm, No Murmurs and No Rub
Respiratory: Clear, Equal and Decreased Breath Sounds
Sternum: Stable
Incision: Clean, Dry and Intact
Extremities: No Edema
Data Reviewed
-
Lab Results: Results Reviewed
Medications: Active Meds Reviewed
Chest X-Ray: Report Reviewed
ECG: Report Reviewed
--- NOTE | 2025-02-20 06:00 | PTCARENOTE ---
adams removed per order
[2025-02-20] MEDS: TYLENOL 975 MG PO ×2 (07:51→20:32)
[2025-02-20] MEDS: SYNTHROID 150 MCG PO (07:52)
[2025-02-20] MEDS: PLAVIX 75 MG PO (07:53)
[2025-02-20] MEDS: SENOKOT 8.6 MG PO (07:53)
[2025-02-20] MEDS: LOW STRENGTH ASPIRIN 81 MG PO (07:53)
[2025-02-20] MEDS: NEURONTIN 100 MG PO ×3 (07:53→20:32)
[2025-02-20] MEDS: MAGNESIUM OXIDE 400 MG PO ×2 (07:53→20:31)
[2025-02-20] MEDS: PROTONIX 40 MG PO (07:53)
[2025-02-20] MEDS: LASIX 60 MG IV ×2 (07:54→18:15)
[2025-02-20] MEDS: BACTROBAN 2% OINTMENT 1 APPLIC NASAL (07:54)
--- NOTE | 2025-02-20 08:51 | W.PN.CD ---
Today's Communication / Plan
-
- NPO after midnight
- On ASA and Plavix.
- Continue Amiodarone and Metoprolol.
Impression / Plan
-
74 y/o male (patient of Dr. Moore) with CAD, AFIB on Eliquis, hypertension, mitral regurgitation who is now s/p cardiac surgery as detailed below.
s/p CABG x 4, MV repair, TV repair, MAZE, and EVI exclusion, Dr. Sullivan 02/16/25
-Intra-op SAJAN with EF Overall LVEF is approximately 30-35%. Moderate to severe tricuspid regurgitation. Moderate to severe mitral regurgitation.
- POST OP portion of intraop SAJAN: LVEF improved to 35-40%, NO MR, no ODELL, MV mean 2 mmHg, No TR
- TTE on 02/19/25: LVEF 35% with no MR or TR.
- AFib noted.
- Now paced rhythm. AV conduction is worse and severe conduction abnormalities noted.
- Currently A paced and V paced rhythm.
- If no conduction recovers, then will plan for PPM
- Drips coming off
- GDMT when able for CM
- NPO after midnight.
HTN:
-monitor post-op
AFIB:
- History of persistent atrial fibrillation preoperatively. Currently in sinus rhythm postoperatively.
- Can continue amiodarone and metoprolol
-on Eliquis as OP- resume when safe post-op
-s/p MAZE and EVI clip as above
Subjective:
No CP. Tolerating the paced rhythm
Physical Exam
Vital Signs/Labs
Vital Signs
Temp Pulse Resp BP Pulse Ox
98.6 F 70 16 123/71 96
02/20/25 03:57 02/20/25 03:10 02/20/25 03:57 02/20/25 03:10 02/20/25 05:19
02/19/25 02/20/2525
06:59 06:59 06:59
Actual Weight 93.4 kg 92.9 kg
02/20/25 03:09
02/20/25 03:09
PT 21.4 Sec (11.4-14.6) H 02/16/25 13:16
INR 1.80 02/16/25 13:16
APTT 35.0 Sec (23.4-35.0) 02/16/25 13:16
Magnesium 2.2 mg/dl (1.6-2.3) 02/20/25 03:09
Physical Exam
Constitutional: No acute distress and Comfortable
EENT: Anicteric and Moist mucous membranes
Cardiovascular: Rhythm & rate is regular, Pedal edema present and JVD present
Respiratory: Respiratory effort normal, Lungs clear to auscul. and Wheeze Absent
GI: Soft and Normal bowel sounds
Neuro/Psych: Alert, Oriented and AO x 3
Data Reviewed
-
Date of Service: February 20, 2025
Medical Decision Making: Reviewed Test Results, Test Interpretation and Review of Case with other Provider
EKG: Tracing Personally Visualized and interpreted
Echo: Report Reviewed by me
Medical Tests (PFT, Pathology etc): Discussed with Physician, Discussed with Nurse and Discussed with Patient
Labs: Labs Reviewed by me
Old Records: Reviewed
[2025-02-20] MEDS: TYLENOL PO (17:03)
[2025-02-20] MEDS: LIPITOR 40 MG PO (18:15)
[2025-02-20] MEDS: NSS 500 IV (18:16)
--- NOTE | 2025-02-20 20:00 | PTCARENOTE ---
assumed care of patient @ 1900. received pt sitting in chair, Aox3. MENTASTA b/l. AV paced on DDi at 76. BP stable. +pulses, trace edema. Lungs clear, diminished on room air satting mid 90s. had BM today. voiding clear yellow urine in urinal. Sternum
KRYSTYNA, B/L leg harvest sites CDI, KRYSTYNA. PIV x2 patent, R IJ Cordis with KVO patent. Pt assisted back to bed, now resting comfortably with call bustillos within reach.
[2025-02-20] MEDS: SENOKOT PO (20:33)
[2025-02-21] VITALS (14 sets, daily range): BP systolic 115–156; BP diastolic 71–121; PULSE 81; O2SAT 93–98; BMI 29.1
--- NOTE | 2025-02-21 | PTCARENOTE ---
pt resting comfortably , no change in assessment .
[2025-02-21 04:39] LABS: Hematocrit 29.5 % (39.0-52.0); Hemoglobin 9.9 g/dL (13.0-18.0); Mean Corp Hgb Conc. 33.6 g/dL (33.0-37.0); Mean Corpuscular Volume 102.4 fL (80.0-94.0); Platelet Count 258 10^3/uL (130-400); Red Cell Dist. Width 12.8 % (11.5-14.5)
[2025-02-21 05:02] LABS: Blood Urea Nitrogen 31 mg/dl (9-20); Calcium 8.2 mg/dl (8.4-10.2); Carbon Dioxide 33 mmol/L (22-30); Chloride 104 mmol/L (98-107); Estimated Creatinine Clearance 82 ml/min; Glucose 98 mg/dl (70-99); Magnesium 2.0 mg/dl (1.6-2.3); Potassium 4.0 mmol/L (3.5-5.1); Sodium 138 mmol/L (135-145); eGFR > 60.00
--- NOTE | 2025-02-21 05:42 | W.PN.CT ---
Today's Communication / Plan
-
-pod #5
-no issues overnight, remains DDI paced @ 70, possible CHB underlying vs slow afib, await AM EKG with pacer paused, currently NPO for possible intervention
-echo 02/19 LVEF 38%, significant reduction in MR (MG 14/4 mmHg), TR (MG 2 mmHg)
-950/2450 cc UOP in 12/24 hrs with diuresis, SCr stable
-continue atorvastatin, asa, Plavix, PPI multimodal pain management, Lasix 60 IV BID
-wean off O2 as tolerated
-ambulate, encourage IS
Assessment / Plan
-
- Severe mitral valve and tricuspid valve insufficiency and unstable angina with multivessel coronary artery disease- s/p CABG x 4 [in situ MAGANA to LAD, Ao to RSVG to OM 1 and LPL, Ao to RSVG to diagonal]; Radical mitral valve repair [32 mm Taylor
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 Sullivan on
02/16/25, pod #5
- Intraop SAJAN: LVEF preop was 45% with mild dilation of his left ventricle. He also had a strange opacity seen on echocardiogram next to his left atrial appendage concerning for either clot or a fibroelastoma. Following surgery his EF remained the
same at 40% on low-dose dobutamine. There were no new regional wall motion abnormalities. His RV function was normal.
- Multivessel coronary disease with unstable angina
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
- Hyperlipidemia
- Hypertension
- Paroxysmal atrial fibrillation- on Eliquis and Diltiazem preop
- Mild aortic valve insufficiency secondary to leaflet prolapse
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
- Functional tricuspid valve insufficiency, severe
- Acute postop blood loss anemia - stable, no transfusion
- Acute postop coagulopathy - s/p 2 FFPs and 2 unit platelets
- Acute postop atelectasis
- Acute postop hypovolemia with subsequent hypervolemia
Subjective
-
Date of Service: February 21, 2025
Objective Data
-
Lab Results
02/21/25 04:21
02/21/25 04:21
PT 21.4 Sec (11.4-14.6) H 02/16/25 13:16
INR 1.80 02/16/25 13:16
APTT 35.0 Sec (23.4-35.0) 02/16/25 13:16
Vital Signs
Vital Signs
Temp Pulse Resp BP Pulse Ox
98.1 F 72 16 123/71 98
02/21/25 04:27 02/21/25 01:00 02/21/25 04:27 02/21/25 01:00 02/21/25 04:27
CT Intake/Output/Weight
02/20/25 02/20/25 02/21/25
06:59 18:59 06:59
Intake Total 100 / 300 800 / 800
Output Total 475 / 1395 1500 / 2450 950 / 2450
Balance -375 / -1095 -700 / -1650 -950 / -1650
SaO2: 98
Physical Exam
-
General: Awake, Oriented and AOx3
Cardiovascular: Regular rate & rhythm, No Murmurs and No Rub
Respiratory: Clear and Equal
Sternum: Stable
Incision: Clean, Dry and Intact
Extremities: No Edema and No Erythema
Data Reviewed
-
Lab Results: Results Reviewed
Medications: Active Meds Reviewed
Chest X-Ray: Report Reviewed
ECG: Report Reviewed and Image Reviewed
[2025-02-21] MEDS: SENOKOT 8.6 MG PO (08:10)
[2025-02-21] MEDS: SYNTHROID 150 MCG PO (08:10)
[2025-02-21] MEDS: NEURONTIN 100 MG PO ×3 (08:10→21:06)
[2025-02-21] MEDS: PROTONIX 40 MG PO (08:10)
[2025-02-21] MEDS: PLAVIX 75 MG PO (08:10)
[2025-02-21] MEDS: MAGNESIUM OXIDE 400 MG PO ×2 (08:10→21:06)
[2025-02-21] MEDS: LOW STRENGTH ASPIRIN 81 MG PO (08:10)
[2025-02-21] MEDS: LASIX 60 MG IV ×2 (08:11→15:37)
[2025-02-21] MEDS: TYLENOL PO ×2 (08:11→13:33)
--- NOTE | 2025-02-21 09:38 | PTCARENOTE ---
assumed care of pt from previous shift RN, afib on tele w HR 80, VSS, + peripheral pulses, trace edema to bilateral lower extremities. AV wires insulated. Lungs diminished, pox 93% on RA, coughing and deep breathing encouraged. +bs, tolerating PO
intake, voids spontaneously. Cordis and PIV flush easily. Surgical sites stable. Plan of care reviewed and questions encouraged.
--- NOTE | 2025-02-21 12:00 | CM ---
Reviewed chart. Met with Mr. Law to review discharge plans. He states he is feeling well. We reviewed a home visit by the Transitional Care Nurse. He is agreeable to a home visit. Prior to admission he resides with his spouse in a two story
home with one step to enter. He has a full flight of steps to get to bedroom. He states he has a full bathroom on each level.Prior to admission he was independent with ambulation and adls. He has a single point cane at home. He has a prescription
plan. Will need to see his current functional level to see if he will have any skilled care Medical work-up in progress. The discharge plan is to return home with his spouse and a home visit by the Transitional Care Nurse when medically stable.
[2025-02-21] MEDS: NSS IV (13:32)
--- NOTE | 2025-02-21 15:11 | W.PN.CD ---
Today's Communication / Plan
-
- No need for pacemaker at this time.
- Continue diuresis
- Holding metoprolol and amiodarone for now. Likely resume amiodarone tomorrow
Impression / Plan
-
74 y/o male (patient of Dr. Moore) with CAD, AFIB on Eliquis, hypertension, mitral regurgitation who is now s/p cardiac surgery as detailed below.
s/p CABG x 4, MV repair, TV repair, MAZE, and EVI exclusion, Dr. Sullivan 02/16/25
-Intra-op SAJAN with EF Overall LVEF is approximately 30-35%. Moderate to severe tricuspid regurgitation. Moderate to severe mitral regurgitation.
- POST OP portion of intraop SAJAN: LVEF improved to 35-40%, NO MR, no ODELL, MV mean 2 mmHg, No TR
- TTE on 02/19/25: LVEF 35% with no MR or TR.
- AFib noted.
- Now A-fib with normal rate controlled with significantly improved AV conduction
- Currently A paced and V paced rhythm.
- If no conduction recovers, then will plan for PPM
- Drips coming off
- GDMT when able for CM
AV block
- AV block is recovered.
- Currently in A-fib but conducting with normal rates.
- With recovery and AV conduction, we will not proceed with pacemaker implantation just yet.
- Monitor on telemetry reevaluate in a.m.
HTN:
-monitor post-op
AFIB:
- History of persistent atrial fibrillation preoperatively. Currently in sinus rhythm postoperatively.
- Can continue amiodarone and metoprolol
-on Eliquis as OP- resume when safe post-op
-s/p MAZE and EVI clip as above
Subjective:
No CP. Currently no pacing is needed and is noted in normal connection with A-fib rhythm.
Physical Exam
Vital Signs/Labs
Vital Signs
Temp Pulse Resp BP Pulse Ox
98.2 F 83 18 134/90 96
02/21/25 11:59 02/21/25 13:00 02/21/25 11:59 02/21/25 11:59 02/21/25 11:59
02/20/25 02/21/25 02/22/25
06:59 06:59 06:59
Actual Weight 92.9 kg 92.1 kg
02/21/25 04:21
02/21/25 04:21
PT 21.4 Sec (11.4-14.6) H 02/16/25 13:16
INR 1.80 02/16/25 13:16
APTT 35.0 Sec (23.4-35.0) 02/16/25 13:16
Magnesium 2.0 mg/dl (1.6-2.3) 02/21/25 04:21
Physical Exam
Constitutional: No acute distress and Comfortable
EENT: Anicteric and Moist mucous membranes
Cardiovascular: Rhythm/rate is irregular and Systolic murmur present
Respiratory: Respiratory effort normal and Lungs clear to auscul.
GI: Soft, Non tender and Normal bowel sounds
Neuro/Psych: Alert, Oriented and AO x 3
Data Reviewed
-
Date of Service: February 21, 2025
Medical Decision Making: Reviewed Test Results, Test Interpretation and Review of Case with other Provider
EKG: Tracing Personally Visualized and interpreted
Echo: Report Reviewed by me
Labs: Labs Reviewed by me
Old Records: Reviewed
Critical Care Time (in minutes): 32
[2025-02-21] MEDS: LIPITOR 40 MG PO (15:36)
--- NOTE | 2025-02-21 15:43 | PTCARENOTE ---
cordis removed without incident.
--- NOTE | 2025-02-21 18:05 | PTCARENOTE ---
pt tolerated shower
[2025-02-21] MEDS: SENOKOT PO (20:57)
--- NOTE | 2025-02-21 21:00 | PTCARENOTE ---
Patient received OOB in chair watching television. Patient A+A+Ox3. No neurological deficits noted. No c/o headache, dizziness or lightheadedness. Room air. SpO2 95%. Chest tube sites open to air. Atrial Fibrillation. Heart rate 80's. AV
Wires insulated. Patient with no c/o chest pain, pressure or discomfort. Normoactive bowel sounds. Voiding without difficulty. Positive, palpable pulses. Bilateral lower extremity edema. Sternal incision intact and open to air. Right groin
site intact - Ecchymotic. Right lower extremity incisions intact - Open to air. Left lower extremity incision intact - Open to air. Patient with no c/o back or flank pain. Assessment as documented.
[2025-02-21] MEDS: TYLENOL 975 MG PO (21:06)
[2025-02-22] VITALS (10 sets, daily range): BP systolic 130–143; BP diastolic 76–88; PULSE 94; O2SAT 96–97; BMI 28.7
--- NOTE | 2025-02-22 00:30 | PTCARENOTE ---
Patient sleeping without difficulty. Assessment as documented.
[2025-02-22] MEDS: TYLENOL PO ×2 (05:00→13:46)
--- NOTE | 2025-02-22 05:00 | PTCARENOTE ---
Patient A+A+Ox3. No neurological deficits noted. AM lab work collected and sent. Patient back to sleep. OOB to chair in AM. Assessment/Interventions as documented.
[2025-02-22 05:06] LABS: Hematocrit 30.7 % (39.0-52.0); Hemoglobin 10.3 g/dL (13.0-18.0); Mean Corp Hgb Conc. 33.6 g/dL (33.0-37.0); Mean Corpuscular Volume 102.7 fL (80.0-94.0); Platelet Count 298 10^3/uL (130-400); Red Cell Dist. Width 13.0 % (11.5-14.5)
[2025-02-22 05:31] LABS: Blood Urea Nitrogen 30 mg/dl (9-20); Calcium 8.5 mg/dl (8.4-10.2); Carbon Dioxide 36 mmol/L (22-30); Chloride 100 mmol/L (98-107); Estimated Creatinine Clearance 94 ml/min; Glucose 100 mg/dl (70-99); Magnesium 1.9 mg/dl (1.6-2.3); Potassium 3.9 mmol/L (3.5-5.1); Sodium 138 mmol/L (135-145); eGFR > 60.00
[2025-02-22] MEDS: SYNTHROID 150 MCG PO (06:28)
--- NOTE | 2025-02-22 06:33 | W.PN.CT ---
Today's Communication / Plan
-
Plan:
-No major issues overnight. Hemodynamically and neurologically intact
-Off all drips
-Appears to be in rate controlled a-fib 60-80's
-Resumed Eliquis
-Holding Amiodarone and BB given postop HB
-EP following for possible PPM
-OOB into chair/Ambulate
-Encourage use of IS
-Home in 1-2 days
Assessment / Plan
-
- Severe mitral valve and tricuspid valve insufficiency and unstable angina with multivessel coronary artery disease- s/p CABG x 4 [in situ MAGANA to LAD, Ao to RSVG to OM 1 and LPL, Ao to RSVG to diagonal]; Radical mitral valve repair [32 mm Taylor
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 Sullivan on
02/16/25, pod #6
- Intraop SAJAN: LVEF preop was 45% with mild dilation of his left ventricle. He also had a strange opacity seen on echocardiogram next to his left atrial appendage concerning for either clot or a fibroelastoma. Following surgery his EF remained the
same at 40% on low-dose dobutamine. There were no new regional wall motion abnormalities. His RV function was normal.
- Multivessel coronary disease with unstable angina
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
- Hyperlipidemia
- Hypertension
- Paroxysmal atrial fibrillation- on Eliquis and Diltiazem preop
- Mild aortic valve insufficiency secondary to leaflet prolapse
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
- Functional tricuspid valve insufficiency, severe
- Acute postop blood loss anemia - stable, no transfusion
- Acute postop coagulopathy - s/p 2 FFPs and 2 unit platelets
- Acute postop atelectasis
- Acute postop hypovolemia with subsequent hypervolemia
Discussed patient care with: Cardiology, Nursing, Respiratory Therapy, Pharmacy and Care Team
Subjective
-
Date of Service: February 22, 2025
Pt offer no complaints, feels well. Ambulating halls without difficulty. Wants to go home
Objective Data
-
Lab Results
02/22/25 04:53
02/22/25 04:53
PT 21.4 Sec (11.4-14.6) H 02/16/25 13:16
INR 1.80 02/16/25 13:16
APTT 35.0 Sec (23.4-35.0) 02/16/25 13:16
Vital Signs
Vital Signs
Temp Pulse Resp BP Pulse Ox
97.9 F 83 16 143/88 94
02/22/25 04:40 02/22/25 04:40 02/22/25 04:40 02/22/25 04:40 02/22/25 04:40
CT Intake/Output/Weight
02/21/25 02/21/25 02/22/25
06:59 18:59 06:59
Intake Total 70 / 310 240 / 310
Output Total 950 / 2450 1050 / 1500 450 / 1500
Balance -950 / -1650 -980 / -1190 -210 / -1190
SaO2: 94 (RA)
Physical Exam
-
General: Awake, Oriented and AOx3
Cardiovascular: Irregular rate & rhythm, No Murmurs and No Gallop
Respiratory: Decreased Breath Sounds (at bases, otherwise feels well)
Sternum: Stable
Incision: Clean, Dry, Intact and Dressing Intact
Extremities: Other (+trace edema)
Data Reviewed
-
Lab Results: Results Reviewed
Medications: Active Meds Reviewed
Chest X-Ray: Report Reviewed and Image Reviewed
ECG: Report Reviewed and Image Reviewed
--- NOTE | 2025-02-22 08:13 | W.PN.CD ---
Today's Communication / Plan
-
would resume Eliquis and stop Plavix
can remain on Eliquis and ASA
add valsartan 40mg a day
Jardiance 10mg aday
Impression / Plan
-
74 y/o male (patient of Dr. Moore) with CAD, AFIB on Eliquis, hypertension, mitral regurgitation who is now s/p cardiac surgery as detailed below.
s/p CABG x 4, MV repair, TV repair, MAZE, and EVI exclusion, Dr. Sullivan 02/16/25
-Intra-op SAJAN with EF Overall LVEF is approximately 30-35%. Moderate to severe tricuspid regurgitation. Moderate to severe mitral regurgitation.
- POST OP portion of intraop SAJAN: LVEF improved to 35-40%, NO MR, no ODELL, MV mean 2 mmHg, No TR
- TTE on 02/19/25: LVEF 35% with no MR or TR.
- patient initally in sinus post op and had bradycardia and conduction issues whihc improved. Now afib with HR 80s
- Now A-fib with normal rate controlled with significantly improved AV conduction
- Drips coming off
- GDMT
-would add valsartan 40mg and as outpatient can transition to Entresto as BP allows
- Jardiance 10mg aday
AV block
- AV block is recovered.
- Currently in A-fib but conducting with normal rates.
- assessed by EP and no plan for PPm due recovery of conduction and stable rates in afib
- Monitor on telemetry reevaluate in a.m.
HTN:
-monitor post-op
AFIB: - h/o afib and Eliquis pre op
- rate controlled afib
-s/p MAZE and EVI clip as above
- resume eliquis
Subjective:
No CP. Currently no pacing is needed and is noted in normal connection with A-fib rhythm.
Physical Exam
Vital Signs/Labs
Vital Signs
Temp Pulse Resp BP Pulse Ox
97.9 F 83 16 143/88 94
02/22/25 04:40 02/22/25 04:40 02/22/25 04:40 02/22/25 04:40 02/22/25 06:36
02/21/25 02/22/25 02/23/25
06:59 06:59 06:59
Actual Weight 92.1 kg 90.8 kg
02/22/25 04:53
02/22/25 04:53
PT 21.4 Sec (11.4-14.6) H 02/16/25 13:16
INR 1.80 02/16/25 13:16
APTT 35.0 Sec (23.4-35.0) 02/16/25 13:16
Magnesium 1.9 mg/dl (1.6-2.3) 02/22/25 04:53
Physical Exam
Constitutional: No acute distress
EENT: Anicteric
Cardiovascular: Rhythm & rate is regular
Respiratory: Wheeze Absent and Rhonchi Absent
GI: Soft
Neuro/Psych: Alert
Data Reviewed
-
Date of Service: February 22, 2025
Medical Decision Making: Reviewed Test Results
X-Ray/CT/US/MRI/NUC/PET: Report Reviewed by me
Medical Tests (PFT, Pathology etc): Report Reviewed by me
Labs: Labs Reviewed by me
[2025-02-22] MEDS: PLAVIX 75 MG PO (08:28)
[2025-02-22] MEDS: PROTONIX 40 MG PO (08:28)
[2025-02-22] MEDS: LOW STRENGTH ASPIRIN 81 MG PO (08:28)
[2025-02-22] MEDS: NSS IV (08:29)
[2025-02-22] MEDS: SENOKOT PO (08:29)
[2025-02-22] MEDS: MAGNESIUM OXIDE 400 MG PO (08:29)
[2025-02-22] MEDS: LASIX 60 MG IV (08:29)
[2025-02-22] MEDS: NEURONTIN 100 MG PO (08:29)
--- NOTE | 2025-02-22 09:06 | PTCARENOTE ---
assumed care of pt from previous shift RN, jenniffer on tele w HR 80's, VSS, +peripheral pulses, +2 edema to bilateral lower extremities. Lungs diminished, pox 97% on RA, coughing and deep breathing encouraged. +bs, tolerating PO intake, voids
spontaneously. PIV flushes easily. surgical sites stable. Plan of care reviewed w the pt and questions encouraged.
[2025-02-22] MEDS: DIOVAN 40 MG PO (10:49)
[2025-02-22] MEDS: FARXIGA 10 MG PO (10:51)
--- NOTE | 2025-02-22 11:50 | CM ---
Reviewed chart. Met with Mr. Law to review discharge plans. He states he is feeling well and maybe able to go home soon. Asked to check on co-pay for Jardiance and Farxiga. Telephone call to [facility] to check on co-pay Farxiga 10 mg po is
$143.83 for 90 day supply via mail order or retail pharmacy. Jardiance 10 mg po daily co-pay is $143.93 for a 90 day supply mail order or retail script. Reviewed co-pay with Mr. aLw. He is agreeable to the co-pay. Placed the one month free coupon
in his red discharge folder. We also reviewed a home visit by the Transitional Care Nurse. He is agreeable to a home visit. Prior to admission he resides with his spouse in a two story home with one step to enter. He has a full flight of steps to
get to bedroom. He states he has a full bathroom on each level.Prior to admission he was independent with ambulation and adls. He has a single point cane at home. He has a prescription plan. Will need to see his current functional level to see if
he will have any skilled care Medical work-up in progress. The discharge plan is to return home with his spouse and a home visit by the Transitional Care Nurse when medically stable.
--- NOTE | 2025-02-22 11:53 | W.DCSUMMARY ---
Discharge Summary
Discharge Data
Date of Admission: 02/16/25
Date of Discharge: 02/22/25
-
Pending Results: No
Hospital Course
Primary care physician: Dr. Shimon Ponce
Outpatient activities concierge: Dr. Terrence Moore
Inpatient consultants: [facility], [employer] Rep[employer]r/Pulmonary Medicine
Procedures by Dr. Ilan Sullivan on 02/16/25:
1. CABG x 4 (MAGANA-LAD, SVG-OM1-LPL, SVG-Diag)
2. MV Repair (32 mm Taylor Physio Flex and Annuloplasty)
3. Tricuspid Valve Repair (34 mm band annuloplasty)
4. 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
5. Full surgical, open left atrial MAZE
6. Exlusion of Left Atrial Appendage (40 mm)
Primary Diagnosis:
1. Type II Severe Mitral Valve pathology, flail with prolapse of P3 and severe MV insufficiency
2. Functional Tricuspid Valve Insufficiency
3. Unstable Angina with Multivessel CAD
Secondary Diagnoses:
1. Acute postop blood loss anemia -stable, no transfusion
2. Acute postop coagulopathy - s/p transfusion of 2 FFP and 2 units platelets
3. Acute postop atelectasis
4. Acute postop hypovolemia with subsequent hypervolemia
5. 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
6. Hyperlipidemia
7. Hypertension
8. Paroxysmal atrial fibrillation (Eliquis and diltiazem preop)
9. Mild AI secondary to leaflet prolapse
HPI: Mr. Ramos Law is a 74-year-old male who was being followed for mitral valve insufficiency secondary to degeneratiave pathology who began to develop anginal chest pain. Patient had a positive cardiac stress test and was referred for a left
heart cath on 02/04/2025 which showed MVD. Underwent outpatient consultation with Dr. Sullivan for consideration of surgical revascularization and valve intervention with possible ablation and EVI ligation due to his PMHx of atrial fibrillation. Please
see Dr. Sullivan's history and physical for full presentation in detail leading to surgery. Patient was electively admitted on 02/16/2025 for cardiothoracic surgery.
Hospital course: Mr. Ramos Law was electively admitted for surgery on 02/16/2025 in which he underwent a CABG x 4, MVrepair, TVrepair, excision of fibroelestoma of LA wall, full, open LA MAZE, and eLAA with Dr. Ilan Sullivan. Please see surgeons
for postoperative report for complete surgical events. Intraoperative SAJAN had preoperative findings of LVEF of 45% with mild LV dilation, and opacity on echocardiogram next to left atrial appendage concerning for either clot or fibroblastoma.
Following surgery his EF remained the same at 40% although does dobutamine, there was no new RWMA, RV function was normal. Intraoperatively, patient received 2 FFP and 2-pack platelets due to coagulopathy. In progressive fashion, inotropic support,
vasopressor support, central lines, chest tubes, and epicardial pacing wires were discontinued. An insulin drip was initiated following surgery and was transition to low-dose sliding scale coverage. Patient had a preoperative appointment
hemoglobin A1c of 5.4%. Postoperative course was complicated by AF with RVR in which amiodarone was given. Patient subsequently sinus bradycardia with a 1st degree AVB requiring transient pacing with his epicardial wires. Amiodarone and
Beta-blocking agents were held. Patient regained intrinsic rhythm of AF with rate 70-80's. EP was consulted in which Dr. Cleveland indicated PPM was not necessary at that time. on post-operative day 3, patient had a follow-up TTE which showed 38%, MVr
and TVr with good results and significant reduction in MR and TR, TV MG 2, MV MG4. On post-op day 6, patient was hemodynamically stable and tolerating GDMT. Valsartan 40 mg daily and Farxiga 10 mg daily were initiated are recommended by Cardiology.
Patient was transitioned to PO diuretic of Lasix 40 mg daily for 5-days. Weight prior to discharge was 90.8 kg with preoperative weight of 89.3 kg. Patient was instructed to monitor blood pressure and weight at home. Patient was discharged to home
with plan to be seen by transitional care nursing in 2-3 days form discharge. He will follow-up with the cardiothoracic surgery team within the next 4 weeks. He was instructed to follow-up with his outpatient activities concierge and PCP.
Home medication changes:
- See list provided below.
Discharge Plan
-
Patient Disposition: Home (Routine Discharge)
Discharge Diagnosis/Procedures: Severe Mitral Valve and Tricuspid Valve insufficiency and Unstable Angina with Multivessel Coronary Artery Disease
s/p CABG x 4 (MAGANA-LAD, SVG-OM1-PLP, SVG-Diag), Mitral Valve Repair (32 mm Taylor physio flex & annuloplasty), Tricuspid Valve Repair (34 mm band annuloplasty), Excision of Fibroelastoma along left atrial wall, Left atrial MAZE and eLAA (40 mm) on
02/16/[address] Sullivan
Condition: Good
Diet: Low Fat, Low Cholesterol, 2 Gram Sodium and Restrict fluids to 48 oz
Activity: As tolerated and No strenuous activity
Additional Activity: Stairs as tolerated. No heavy lifting, pushing, or pulling anything greater than 15 lbs for 1-month.
Driving Restrictions: Not until seen by your Dr
Bathing Restrictions: OK to Shower
Other Services: Cardiac Rehab
Wound Care: Shower daily with soap and water. Keep procedural sites open to air. No lotions, creams, or powders on procedural sites.
Specialty Instructions: Weigh Daily- Call MD for wt gain/loss 3 lbs overnight/5 lbs in 1 week
Activity Restrictions/Additional Instructions:
ACTIVITY:
-No strenuous activity: no heavy lifting, pushing, pulling anything over 15 pounds for one month
-Continue to use stairs as tolerated
DRIVING RESTRICTIONS:
-No driving for one month or until approved by your surgeon
WOUND CARE:
-Shower daily. Use soap & water.
-No lotions, creams or powders on incision area.
DIET:
-Continue a low fat/low cholesterol diet.
-IF you are diabetic, continue carb controlled diet.
CARDIAC REHAB:
-Please make appointment to start in 5-6 weeks with your local hospital program. (See Cardiac Rehabilitation Discharge Booklet).
SPECIALTY INSTRUCTIONS:
-Weigh yourself daily. Call your physician for any weight gain/loss of 3 lbs overnight or 5 lbs in one week.
-REPORT any clicking noise or uneven appearance of your sternum to your surgeon immediately.
-If you smoke, you are instructed to quit. The [place] smoking hotline phone number is [phone]
Referrals:
[facility] Transitional Care Nurse [Outside] - in one to two days
Referral Note:
The Cardiothoracic Transitional Care Nurse will call you to set up a visit in 1-2 days.
[facility] [Outside] - 03/24/25 11:30 am
Referral Note: Cardiac Rehab Orientation appointment is on 03/24/2025 () at 11:30
The Cardiac Rehab gym is located on the first floor of the [facility].
Jennifer Verde CRNP [Specified Professional Personl, Cardiology] - 04/04/25 10:00 am
Shimon Ponce DO [Family Provider, Family Practice] - in four to six weeks
Referral Note: Please make an appointment in four to six weeks.
Ilan Sullivan MD [Active, Cardiac Surgery] - 03/21/25 3:00 pm
Prescriptions:
New
acetaminophen 325 mg Tablet
650 mg PO Q6HPRN PRN (Reason: mild pain,headache,temp >101F ) Qty: 0 0RF
valsartan 40 mg Tablet
40 mg PO DAILY Qty: 60 0RF
furosemide 40 mg Tablet
40 mg PO DAILY 5 Days Qty: 5 0RF
dapagliflozin propanediol 10 mg Tablet
10 mg PO DAILY Qty: 60 0RF
Continued
levothyroxine 150 mcg Tablet
150 mcg PO DAILY
multivitamin Tablet
1 tab PO DAILY
Eliquis 5 mg Tablet
5 mg PO BID
Probiotic Complex 25 billion cell -100 mg Capsule
1 cap PO DAILY
atorvastatin 40 mg tablet
40 mg PO QPM Qty: 90 10RF
polyethylene glycol 3350 [Miralax] 17 gram/dose Powder
4 g PO DAILY PRN (Reason: constipation)
aspirin 81 mg tablet,chewable
81 mg PO DAILY
Discontinued
lisinopril 40 mg Tablet
40 mg PO DAILY
acetaminophen [Tylenol] 325 mg Tablet
325 mg PO PRN PRN (Reason: pain)
nitroglycerin 0.4 mg tablet, sublingual
0.4 mg sublingual [id number] PRN (Reason: chest pain) Qty: 25 5RF
Patient Comments:
Not Used
diltiazem HCl 120 mg Capsule,Extended Release 24 Hr
120 mg PO DAILY
Care Plan Goals
Care Plan Goals:
Problem: Readiness for enhanced knowledge related to diagnosis and treatment plan
Goal: Understand your diagnosis and treatment plan needs, including medications if applicable.
Instructions: Know your diagnosis, underlying causes and treatment plan options, including medications if applicable. Consult with your health care team to learn about your diagnosis and treatment plan, including medications if applicable.
Discharge Date and Time
Print Language: SLOVAK
--- NOTE | 2025-02-22 15:05 | PTCARENOTE ---
pacing wires cut by CT URSZULA.
--- NOTE | 2025-02-22 16:04 | PTCARENOTE ---
PIV and tele monitor d/c'ed. Discharge instructions, follow up appointments and medication list reviewed w the patient and his , questions encouraged.
== END 2025-02-22 16:07 | disposition home or self-care (01) | DRG 219 ==
LOC: CVICU 04:54
PROVIDERS: Nurse Practitioner; Physician Assistant Medical; ADMITTING PHYSICIAN Thoracic Surgery (Cardiothoracic Vascular Surgery); CONSULT PHYSICIAN Internal Medicine; FAMILY PHYSICIAN Student in an Organized Health Care Education/Training Program
PROC: 02UG0JZ Supplement Mitral Valve with Synthetic Substitute, Open Approach (ICD-10-PCS; 2025-02-16)
PROC: 30233K1 Transfusion of Nonautologous Frozen Plasma into Peripheral Vein, Percutaneous Approach (ICD-10-PCS; 2025-02-16)
PROC: 02QG0ZZ Repair Mitral Valve, Open Approach (ICD-10-PCS; 2025-02-16)
PROC: B24BZZ4 Ultrasonography of Heart with Aorta, Transesophageal (ICD-10-PCS; 2025-02-16)
PROC: 02UJ0JZ Supplement Tricuspid Valve with Synthetic Substitute, Open Approach (ICD-10-PCS; 2025-02-16)
PROC: 02100Z9 Bypass Coronary Artery, One Artery from Left Internal Mammary, Open Approach (ICD-10-PCS; 2025-02-16)
PROC: 5A1221Z Performance of Cardiac Output, Continuous (ICD-10-PCS; 2025-02-16)
PROC: 0212093 Bypass Coronary Artery, Three Arteries from Coronary Artery with Autologous Venous Tissue, Open Approach (ICD-10-PCS; 2025-02-16)
PROC: 30233R1 Transfusion of Nonautologous Platelets into Peripheral Vein, Percutaneous Approach (ICD-10-PCS; 2025-02-16)
PROC: 02L70CK Occlusion of Left Atrial Appendage with Extraluminal Device, Open Approach (ICD-10-PCS; 2025-02-16)
PROC: 06BP4ZZ Excision of Right Saphenous Vein, Percutaneous Endoscopic Approach (ICD-10-PCS; 2025-02-16)
PROC: 02B70ZZ Excision of Left Atrium, Open Approach (ICD-10-PCS; 2025-02-16)
PROC: 02580ZZ Destruction of Conduction Mechanism, Open Approach (ICD-10-PCS; 2025-02-16)
PROC: 06BQ4ZZ Excision of Left Saphenous Vein, Percutaneous Endoscopic Approach (ICD-10-PCS; 2025-02-16)
DX: I25.110 Atherosclerotic heart disease of native coronary artery with unstable angina pectoris (principal); I51.1 Rupture of chordae tendineae, not elsewhere classified; D62 Acute posthemorrhagic anemia; D68.9 Coagulation defect, unspecified; J98.11 Atelectasis; I42.8 Other cardiomyopathies; E78.5 Hyperlipidemia, unspecified; I10 Essential (primary) hypertension; I48.0 Paroxysmal atrial fibrillation; D15.1 Benign neoplasm of heart; I34.0 Nonrheumatic mitral (valve) insufficiency; I36.1 Nonrheumatic tricuspid (valve) insufficiency; I35.1 Nonrheumatic aortic (valve) insufficiency; E03.9 Hypothyroidism, unspecified; I44.0 Atrioventricular block, first degree; E86.1 Hypovolemia; E87.70 Fluid overload, unspecified; Z79.899 Other long term (current) drug therapy; Z79.890 Hormone replacement therapy; Z79.01 Long term (current) use of anticoagulants; Z79.82 Long term (current) use of aspirin
CPT/HCPCS: 33259; 36415; 71045; 71046; 80048; 80053; 81003; 81015; 82248; 82330; 82565; 82805; 82810; 82947; 82962; 83036; 83735; 84132; 84302; 84520; 85014; 85018; 85025; 85027; 85049; 85610; 85730; 86803; 86850; 86900; 86901; 86920; 87070; 87086; 88305; 93005; 93308; 93312; 93320; 93321; 93325; 93880; 94002; C1768; J2916; P9045; P9047; P9059; P9073

== ENCOUNTER 2025-03-04 18:55 | Inpatient (IN) | payer OTHER, SELFPAY ==
[2025-03-04] VITALS (8 sets, daily range): BP systolic 121–154; BP diastolic 60–75; BMI 28.2; BMI 27.1
[2025-03-04 16:02] LABS: Hematocrit 35.5 % (39.0-52.0); Hemoglobin 11.2 g/dL (13.0-18.0); Mean Corp Hgb Conc. 31.5 g/dL (33.0-37.0); Mean Corpuscular Volume 108.9 fL (80.0-94.0); Nucleated Red Blood Cells % 0 % (-); Platelet Count 483 10^3/uL (130-400); Red Cell Dist. Width 13.4 % (11.5-14.5)
[2025-03-04 16:17] LABS: ALT (SGPT) 49 U/L (0-50); AST (SGOT) 41 U/L (17-59); Albumin 3.2 g/dl (3.5-5.0); Alkaline Phosphatase 272 U/L (38-126); Blood Urea Nitrogen 18 mg/dl (9-20); Calcium 9.2 mg/dl (8.4-10.2); Carbon Dioxide 32 mmol/L (22-30); Chloride 99 mmol/L (98-107); Estimated Creatinine Clearance 85 ml/min; Glucose 111 mg/dl (70-99); Potassium 4.5 mmol/L (3.5-5.1); Sodium 135 mmol/L (135-145); Total Protein 6.6 g/dl (6.3-8.2); eGFR > 60.00
--- NOTE | 2025-03-04 16:18 | ED.GENMED ---
History of Present Illness
General
Chief Complaint: Breathing Problem
Source: patient
Exam Limitations: none
Time Seen by Provider: 03/04/25 15:53
Nursing documentation reviewed up to this point in time: agreed with
History of Present Illness
History of Present Illness:
Patient status post CABG procedure with Dr. Sullivan on February 16, returns to ED secondary to continued shortness of breath along with inability to sleep since discharge on February 22. Denies fever or chills. Denies coughing. Denies chest pain.
Denies nausea or vomiting. Denies loss of appetite. Patient is currently taking Eliquis secondary to chronic atrial fibrillation. Denies weight gain. Denies headache. Denies dizziness. Patient states that he has been difficult time laying down
to go to sleep due to shortness of breath, along with exertional shortness of breath. Patient has been utilizing incentive spirometer, as recommended at time of discharge.
Past History
Past History
ED Past Medical History: None
ED Past Surgical History: None
Social History
Tobacco: Non-smoker
Personal:
Living: with family
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
Review of Systems
Review of Systems
Allergies reviewed?: Yes
All Other Systems: ROS reviewed and negative except as documented in HPI and ROS
Constitutional: Reports no symptoms; Denies fever or chills
Respiratory: Reports trouble breathing; Denies cough
Cardiac: Denies chest pain or palpitations
ABD/GI: Reports constipated; Denies abdominal pain, vomiting or diarrhea
Musculoskeletal: Reports no symptoms
Skin: Reports no symptoms
Neurological: Reports no symptoms; Denies dizzy
Phy Exam
Physical Exam
Physical Exam:
Physical Exam
General: no apparent distress, not acutely ill. afebrile
Head: nc/at. eomi
Neck: supple. no jvd
Heart: irregularly irregular
Lungs: no acute respiratory distress. clear bilaterally
Abdomen: normal bowel sounds. not tender.
Neuro: alert and oriented x 3. no focal neurological deficits
Skin: no rash
Psychiatric: well kept. interactive and cooperative
Extremities: no edema. no calf tenderness.
Scores
Heart Failure Risk
Heart Failure Risk Score: Yes
History of Stroke or TIA: No
History of intubation for respiratory distress: No
Heart rate on ED arrival >/= 110: No
SaO2 <90% on arrival on room air: No
HR >/=110 during 3min walk test (or too ill to perform test): No
ECG has acute ischemic changes: No
Urea >/=12mmol/L (BUN 33.6mg/dL): No
Serum CO2>/=35mmol/L: No
Troponin I or T elevated to OK Level (0.4mg/dL): No
NT-proBNP >/=5,000ng/L (5,000pg/ml): No
HF Risk Score: 0
Admission Status: LOW RISK 2.8% Consider discharge to home with f/u visit to PCP/[facility]
Course
Orders/Labs/Results
Orders:
Orders
03/04/25 15:30
EKG [Electrocardiogram (*1)] Urgent
Reason for Study: Shortness of Breath
EKG- Treatment ONCE
03/04/25 15:44
Complete Blood Count/With Diff Urgent
Comprehensive Metabolic Panel Urgent
NT-proBNP Urgent
Troponin I Urgent
03/04/25 16:09
CR Obstruct Series W/pa Chest Urgent
Comment:
Reason For Exam: sob/constipation
03/04/25 16:14
Echo Follow up Study W Dop Urgent
Reason for Study: sob
03/04/25 18:09
Admit Patient As Directed
Co-Sign Provider:
Level of Care: Inpatient admission
Assign to:: IVU
Physician / Group: Sullivan
Diagnosis: Shortness of breathe
Reason for Hospitalization: shortness of breathe
Expected length of stay greater than two midnights?: Yes
ELOS- Estimated Length of Stay in days: 4
I certify the patient meets the requirements for IP care: Yes
Code Status As Directed
Resuscitation Status: Full Code
Acetaminophen [Tylenol] 650 mg PO Q4HPRN PRN
Albuterol Nebs [Ventolin Nebules] 2.5 mg INH R Q4HPRN PRN
Bisacodyl [Dulcolax] 10 mg RECTAL [id number] PRN
Docusate W/Senna [Senokot-S] 1 tablet PO BIDPRN PRN
Ondansetron Injectable [Zofran] 4 mg IV Q6HPRN PRN
Oxycodone [Roxicodone] 5 mg PO Q4HPRN PRN
Polyethylene Glycol Powder [Miralax] 17 grams PO DAILYPRN PRN
Activity As Directed
Activity Level: Out of Bed- Chair
Intake/ Output As Directed
Frequency: Per unit guidelines
Vital Signs As Directed
Frequency: Per unit guidelines
Weight As Directed
Frequency: Daily
PRN Pain Medication Management As Directed
May give lesser potent ordered pain med per pt: Yes
preference::
Protocol:: Medication orders for pain may be administered in a
manner that supports deferring to patient preference
when the pt is:
- Requesting an ordered lesser potent pain medication.
Least to most potent pain medications are defined
as: acetaminophen < NSAID < tramadol < opioids
(morphine, oxycodone, hydromorphone).
- Requesting a lesser dose of the same medication IF
ORDERED.
- Requesting a less intrusive route of administration
if both routes are prescribed by the provider (PO <
IV).
Rx Incentive Spirometry [RESP] Routine
Frequency: q1h while awake
03/04/25 18:10
Pneumatic Compression Sleeves As Directed
Type: Knee high
DX Deep Vein Thrombosis Video Routine
03/04/25 18:48
Polyethylene Glycol 3350 [Gavilax] 4 gm PO DAILY PRN constipation
03/04/25 18:49
Furosemide [Lasix] 40 mg IV ONCE ONE
03/04/25 20:00
Apixaban [Eliquis] 5 mg PO BID
Sennosides [Senokot] 8.6 mg PO BID
03/05/25 Breakfast
Cholesterol Lowering
At Your Request: Full Participation
Does patient need a safe tray?: No
Fluid Restriction: 1800 mL/day (60 oz)
Cholesterol Lowering: Sodium, 2 Gram
Complete Blood Count/With Diff IN AM
Comprehensive Metabolic Panel IN AM
Ferritin IN AM
Magnesium IN AM
PTT IN AM
Prothrombin Time IN AM
Levothyroxine [Synthroid] 150 mcg PO DAILY@0600
03/05/25 08:00
Aspirin Chewable [Low Strength Aspirin] 81 mg PO DAILY
Dapagliflozin [Farxiga] 10 mg PO DAILY
Furosemide [Lasix] 40 mg IV BID AT 0800,1600
Valsartan [Diovan] 40 mg PO DAILY
03/05/25 18:00
Atorvastatin [Lipitor] 40 mg PO QPM
03/07/25 06:00
Echo 2D MMode Color/Doppler IN AM
Reason for Study: new AI
Abnormal Lab Results
03/04/25
15:44
WBC 15.4 H 10^3/uL
(4.8-10.8)
RBC 3.26 L 10^6/uL
(4.70-6.10)
Hgb 11.2 L g/dL
(13.0-18.0)
Hct 35.5 L %
(39.0-52.0)
MCV 108.9 H fL
(80.0-94.0)
MCH 34.4 H pg
(27.0-31.0)
MCHC 31.5 L g/dL
(33.0-37.0)
Plt Count 483 H 10^3/uL
(130-400)
Abs Immat Gran (auto) 0.1 H 10^3/uL
(0-0.05)
Absolute Neuts (auto) 13.0 H 10^3/uL
(1.4-6.5)
Absolute Lymphs (auto) 0.7 L 10^3/uL
(1.2-3.4)
Absolute Monos (auto) 1.6 H 10^3/uL
(0.1-0.6)
Neutrophils % 84.2 H %
(42.2-75.2)
Lymphocytes % 4.3 L %
(20.5-51.1)
Monocytes % 10.4 H %
(1.7-9.3)
Carbon Dioxide 32 H mmol/L
(22-30)
Glucose 111 H mg/dl
(70-99)
Alkaline Phosphatase 272 H U/L
(38-126)
Troponin I 0.095 H* ng/ml
Albumin 3.2 L g/dl
(3.5-5.0)
03/04/25 15:44
03/04/25 15:44
Vital Signs
Initial and Last Documented VS:
Initial Vital Signs
Temp Pulse Resp BP Pulse Ox
98.3 F 95 19 132/75 95
03/04/25 15:35 03/04/25 15:35 03/04/25 15:35 03/04/25 15:35 03/04/25 15:35
Last Documented Vital Signs
Temp Pulse Resp BP Pulse Ox
99.0 F 92 18 121/73 95
03/04/25 21:23 03/04/25 22:00 03/04/25 21:23 03/04/25 21:14 03/04/25 21:23
MDM/Problems Addressed
MDM/Problems Addressed:
After discussion with on-call cardiology, , 2D echo ordered.
Patient also evaluated in ED by Dr. Jacobs, cardiothoracic surgery. In light of echocardiogram revealing aortic insufficiency, decision made to initiate/continue IV diuresis.
*Pulse Oximetry
SaO2: 95
Oxygen Mode of Delivery: Room air
Patient hypoxic: no
*EKG
Interpreted by ED Provider?: Yes
EKG Intrepretation Date: 03/04/25
Heart Rate: 103
Rate: tachycardiac
Rhythm: a-fib
[place]: left axis deviation
Interval: normal interval
*Critical Care Note
Total Time (30-74mins, 75-104mins- exclusive of procedures): Not Applicable
ED Attending Note
-
Portions of this chart may have been created with voice recognition software.� Occasional wrong word or��sound alike� substitutions may have occurred due to the inherent limitations of voice recognition software.
Discharge Plan
Departure
Patient Disposition: Admit
Date of Disposition: 03/04/25
Time of Disposition: 18:23
Admit to: IVU
Presentation/result/management discussed w/ accepting MD/:
Condition: Fair
Discharge Problem:
Dyspnea, Aortic insufficiency
Interventions
Interventions:
*Risk Screen - Suicide Last Done: 03/04/25 15:34
*General Assessment Last Done: 03/04/25 15:34
*Neglect/Abuse Screening Last Done: 03/04/25 15:34
*ED COVID-19 Vaccine History Last Done: 03/04/25 21:29
*ED Influenza Vaccine History Last Done: 03/04/25 15:34
*Nursing Disposition Last Done: 03/04/25 21:14
ED- Cardiac Assessment Last Done: 03/04/25 18:50
ED- Pulmonary Assessment Last Done: 03/04/25 18:50
Discharge Date and Time
Discharge Date/Time: 03/04/25 21:20
[2025-03-04 16:34] LABS: Troponin I 0.095 ng/ml
[2025-03-04] MEDS: LASIX 40 MG IV (19:20)
[2025-03-04] MEDS: SENOKOT 8.6 MG PO (20:34)
[2025-03-04] MEDS: ELIQUIS 5 MG PO (20:34)
--- NOTE | 2025-03-04 21:52 | HPS.HSE ---
Family Physician
-
Family Physician: Shimon Ponce, DO
Chief Complaint
-
Shortness of breath
History of Present Illness
Patient has increasing shortness of breath since cardiac surgery, most specifically at night. (CABG x 4, MV repair, TV repair, MAZE, and EVI exclusion on 02/16/25). Patient states he is still using incentive spirometer.
Medical History
Past Medical History
Past Medical History: Reports Arrhythmia (Atrial Fibrillation), CAD, HTN, Hypercholesterolemia and Hypothyroidism
Past Surgical History: Reports Cardiac (s/p CABG x 4, MV repair, TV repair, MAZE, and EVI exclusion on 02/16/25)
Social History
Tobacco: Non-smoker
Alcohol: None
Drug: None
Personal:
Living: With Family
Employment: Retired
Family History
Family History: Cancer
Allergies / Home Medications
Allergies reflects when Allergies were last updated in [facility].
Home Medications with original date entered in [facility]
Allergy/Medication List:
NDKA
Review of Systems
-
History Source: Patient
Constitutional: Reports Sleep Disturbance
EENT: Reports No Symptoms
Respiratory: Reports Trouble Breathing (increased shortness of breath through out the day, more specifically at night)
Cardiac: Reports No Symptoms
Abdomen/GI: Reports Constipated (Bowel movements reported less frequent then usual)
: Reports No Symptoms
Musculoskeletal: Reports No Symptoms
Skin: Reports No Symptoms
Neurological: Reports No Symptoms
Endocrine: Reports No Symptoms
Hematologic/Lymphatic: Reports No Symptoms
Psych: Reports No Symptoms
Physical Exam
Vital Signs
Vital Signs
Temp Pulse Resp BP Pulse Ox
99.0 F 95 18 121/73 95
03/04/25 21:23 03/04/25 21:15 03/04/25 21:23 03/04/25 21:14 03/04/25 21:23
Physical Exam
General: Well Developed, Well Nourished, Comfortable, Conversant and Good Appetite
HEENT: NormoCephalic, Nose Appears Normal, Ears Appear Normal and Neck Nontender
Respiratory: Clear
Cardiac: S1/S2, Regular Rhythm and Peripheral Edema
GI: Soft, Non Tender, Non Distended and Normal Bowel Sounds
Skin: Warm and Dry
Neuro: Awake, Alert, Oriented, AO x 3 and No Motor Deficits
Psych: Calm
Laboratory Results
-
03/04/25 15:44
03/04/25 15:44
Laboratory Results
Total Bilirubin 1.3 mg/dl (0.2-1.3) 03/04/25 15:44
AST 41 U/L (17-59) 03/04/25 15:44
ALT 49 U/L (0-50) 03/04/25 15:44
Alkaline Phosphatase 272 U/L (38-126) H 03/04/25 15:44
Troponin I 0.095 ng/ml H* 03/04/25 15:44
Data Reviewed
-
Medical Tests (Nuc Med, Echo, EKG etc): Discussed with Physician
Lab Data: Labs Reviewed by me
Impression/Plan
-
IMPRESSION:Progressive moderate/severe aortic regurgitation based of ECHO
PLAN:
1) Diuresis = Lasix 40 mg BID
2) Repeat ECHO
3) Oxygen as needed
4) Monitor I&O
--- NOTE | 2025-03-04 23:54 | PTCARENOTE ---
Pt. rec'd from ED AAOx3, VSS, A-fib on the monitor. Able to ambulate with min. assist & RW, gait unsteady (fall precautions initiated). Fine crackles present bilateral lung bases, RA pulse ox 95-96%. Pt. states his breathing feels better following
Lasix admin in ED, orthopnea still present. Voiding clear yellow urine without difficulty. Pt. oriented to room and plan of care, understanding verbalized. Currently resting quietly.
[2025-03-05] VITALS (8 sets, daily range): BP systolic 142–163; BP diastolic 70–88; BMI 27.0
--- NOTE | 2025-03-05 00:01 | PTCARENOTE ---
Attempted to complete med rec but pt. states he doesn't know for sure what he takes- and does not have a list. States he will tell his to bring in tomorrow.
[2025-03-05] MEDS: TYLENOL 650 MG PO (00:19)
[2025-03-05 00:50] LABS: Hematocrit 32.7 % (39.0-52.0); Hemoglobin 10.3 g/dL (13.0-18.0); Mean Corp Hgb Conc. 31.5 g/dL (33.0-37.0); Mean Corpuscular Volume 103.8 fL (80.0-94.0); Nucleated Red Blood Cells % 0 % (-); Platelet Count 418 10^3/uL (130-400); Red Cell Dist. Width 13.4 % (11.5-14.5)
--- NOTE | 2025-03-05 00:51 | PTCARENOTE ---
Pt. had 26 beat run VT while in bed. VSS, asymptomatic. Resumed A-fib. KRISHNA Cantor, notified, instructed to draw AM labs now. Labs drawn and sent.
[2025-03-05 01:03] LABS: INR 2.13; PT 23.9 Sec (11.4-14.6)
[2025-03-05 01:04] LABS: APTT 45.9 Sec (23.4-35.0)
[2025-03-05 01:07] LABS: ALT (SGPT) 43 U/L (0-50); AST (SGOT) 36 U/L (17-59); Albumin 3.1 g/dl (3.5-5.0); Alkaline Phosphatase 244 U/L (38-126); Blood Urea Nitrogen 18 mg/dl (9-20); Calcium 9.0 mg/dl (8.4-10.2); Carbon Dioxide 32 mmol/L (22-30); Chloride 102 mmol/L (98-107); Estimated Creatinine Clearance 97 ml/min; Glucose 131 mg/dl (70-99); Magnesium 2.1 mg/dl (1.6-2.3); Potassium 4.5 mmol/L (3.5-5.1); Sodium 139 mmol/L (135-145); Total Protein 6.2 g/dl (6.3-8.2); eGFR > 60.00
[2025-03-05 01:44] LABS: Ferritin 260.0 ng/ml (17.9-464.0)
--- NOTE | 2025-03-05 02:01 | W.PN.CT ---
Addendum entered and electronically signed by Oscar Jacobs MD 03/05/25 08:45:
I saw and examined the patient.
The PA's note was reviewed and I agree with the note.
Comment:
S/P MVRp, TVRp, CABG, MAZE, ELAA on 02/16 � discharged.�
Represented to ED on 03/04 w/ SOB, edema.�
ECHO w/ new [id number] AI; not present on intraop SAJAN (mild) or postoperative TTE ([id number]).�
Hopefully just volume related.� Continue diuresis (40mg IV BID) � repeat TTE vs. SAJAN on Friday
Original Note:
Today's Communication / Plan
-
ECHO: Moderately�reduced LV�systolic�function. Ejection fraction is 35-40%�(Stable). Global hypokinesis,�progressive moderate/severe aortic regurgitation, mitral valve and tricuspid valve repairs are stable;�
Plan to diuresis patient�(40mg�of�Lasix�BID)�
20 beat run SVT/VT�overnight�(electrolytes�WNL)�
Repeat ECHO after diuresis
Assessment / Plan
-
s/p CABG x 4, MV repair, TV repair, MAZE, and EVI exclusion, Dr. Sullivan 02/16/25
Past Medical History
CAD
AFIB on Eliquis
Hypertension
Mitral regurgitation
Hyperlipemia
Hypothyroidism
Subjective
Procedure
Admitted for increased Shortness of Breath
-
Date of Service: March 05, 2025
Objective Data
-
Lab Results
03/05/25 00:42
03/05/25 00:42
PT 23.9 Sec (11.4-14.6) H 03/05/25 00:42
INR 2.13 03/05/25 00:42
APTT 45.9 Sec (23.4-35.0) H 03/05/25 00:42
Vital Signs
Vital Signs
Temp Pulse Resp BP Pulse Ox
99.0 F 95 18 163/83 95
03/04/25 21:23 03/05/25 00:26 03/04/25 21:23 03/05/25 00:26 03/04/25 23:18
CT Intake/Output/Weight
03/04/25 03/04/25 03/05/25
06:59 18:59 06:59
Intake Total 480 / 480
Output Total 300 / 300
Balance 180 / 180
SaO2: 95
Physical Exam
-
General: Awake
Cardiovascular: Regular rate & rhythm
Respiratory: Clear and Decreased Breath Sounds (bases)
Sternum: Stable
Incision: Clean and Dry
Extremities: Edema +1
[2025-03-05] MEDS: SYNTHROID 150 MCG PO (04:55)
[2025-03-05] MEDS: SENOKOT 8.6 MG PO ×2 (09:14→19:14)
[2025-03-05] MEDS: FARXIGA 10 MG PO (09:14)
[2025-03-05] MEDS: DIOVAN 40 MG PO (09:14)
[2025-03-05] MEDS: ELIQUIS 5 MG PO ×2 (09:14→19:14)
[2025-03-05] MEDS: LOW STRENGTH ASPIRIN 81 MG PO (09:15)
[2025-03-05] MEDS: LASIX 40 MG IV ×2 (09:15→16:29)
--- NOTE | 2025-03-05 13:13 | CON.CAR ---
Consultation
Consultation Request
Date/Time Consultation Requested: 03/05/25, 7am
Date/Time Consultation Performed: 03/05/25, 10am
Requesting Provider: Reynaldo
Performing Provider: Antonia
Reason for Consultation: heart failure
Medical History
-
Chief Complaint: SOB
History of Present Illness:
74 yo male with PMH of CABG x 4, MV repair, TV repair, MAZE, and EVI exclusion, Dr. Sullivan 02/16/25; ICM EF 35-40%, chronic HFrEF, persistent A fib on eliquis, HTN is admitted with acute on chronic HFrEF. He reports more RAE and edema. No chest pain.
Past Medical History
Past Medical History: Arrhythmias (paroxysmal A fib), CAD, CHF (chronic HFrEF), HTN, Hypercholesterolemia and Valvular Disease
Past Surgical History: Cardiac (CABG, MV repair, TV repair)
Social History
Tobacco: Non-Smoker
Family History
Family History: Early CAD (none)
Allergies / Home Medications
Allergy/AdvReac Type Severity Reaction Status Date / Time
No Known Allergies Allergy Verified 02/10/25 11:39
�Medication �Instructions �Recorded �Confirmed �Type
levothyroxine 150 mcg tablet 150 mcg PO DAILY Thyroid 12/11/23 02/16/25 History
L.acidophilus-B.animalis-B.bifidum 1 cap PO DAILY Supplement 10/22/24 02/16/25 History
25 billion cell-FOS 100 mg capsule
(Probiotic Complex)
apixaban 5 mg tablet (Eliquis) 5 mg PO BID Blood Clot 10/22/24 02/16/25 History
Prevention/Tx
multivitamin 1 tab PO DAILY Supplement 10/22/24 02/16/25 History
atorvastatin 40 mg tablet 40 mg PO QPM #90 tabs 02/04/25 02/16/25 Rx
polyethylene glycol 3350 17 4 g PO DAILY PRN constipation 02/10/25 02/16/25 History
gram/dose oral powder (Miralax)
aspirin 81 mg chewable tablet 81 mg PO DAILY Blood Clot 02/17/25 02/16/25 History
Prevention/Tx
acetaminophen 325 mg tablet 650 mg (2 x 325 mg) PO Q6HPRN PRN 02/22/25 Rx
mild pain,headache,temp >101F #0
tabs
dapagliflozin propanediol 10 mg 10 mg PO DAILY Heart Failure #60 02/22/25 Rx
tablet tabs
furosemide 40 mg tablet 40 mg PO DAILY Fluid 02/22/25 Rx
retention/Swelling 5 days #5 tabs
valsartan 40 mg tablet 40 mg PO DAILY Heart 02/22/25 Rx
disease/condition #60 tabs
Review of Systems
-
History Source: Patient
All other systems: Negative unless noted
Constitutional: Weight Gain
Respiratory: Trouble Breathing
Musculoskeletal: Edema
Physical Exam
Vital Signs
Temp Pulse Resp BP Pulse Ox
97.7 F 86 18 153/74 94
03/05/25 10:55 03/05/25 09:15 03/05/25 10:55 03/05/25 09:15 03/05/25 10:55
Lab Results
03/05/25 00:42
03/05/25 00:42
Troponin I 0.095 ng/ml H* 03/04/25 15:44
Pia-U-Vajcmcucgij Pept 2970 pg/ml 03/04/25 15:44
Physical Exam
General: Well Developed and Well Nourished
HEENT: Normocephalic, Anicteric and Moist Mucous Membranes
Respiratory: Clear and Accessory Resp Muscle Use
Cardiac: S1/S2 (normal), Irregular Rhythm, Murmur (II/IV diastolic at RUSB), Peripheral Edema (2+ LE edema) and JVD (present)
Skin: Warm and Dry
Neuro: AO x 3
Psych: Calm
Impression / Plan
-
74 yo male with PMH of CABG x 4, MV repair, TV repair, MAZE, and EVI exclusion, Dr. Sullivan 02/16/25; ICM EF 35-40%, chronic HFrEF, persistent A fib on eliquis, HTN is admitted with acute on chronic HFrEF.
# Acute on chronic HFrEF
-severe, requiring hospitalization for IV lasix and close monitoring of labs/tele
-continue lasix 40mg IV bid
# Aortic regurgitation
-mild/moderate-->moderate/severe
-diurese over weekend, and SAJAN Friday given recent valve surgery
# NSVT: 25 beats
-was not on beta frantz due to post op bradycardia
-will start Toprol XL 25mg bid
-EP eval this admission
# ICM EF 35-40%
-starting Toprol XL
-continue valsartan, farxiga
-titrate/add GDMT as tolerated
# CABG x 4, MV repair, TV repair, MAZE, and EVI exclusion, Dr. Sullivan 02/16/25
-echo 03/04: EF 35-40%, MV repair (mean 5, trace MR), mod/severe AR, nl RV, TV repair (mean 2, mild TR), PASP 38
# A fib, seems persistent
-cont Toprol XL and eliquis 5mg bid
# CAD/CABG
-ASA, statin
# HTN
-cont valsartan
-added Toprol XL
Data Reviewed
-
EKG: Tracing Personally Visualized and interpreted (A fib) and Other (Tele: 25 beats NSVT)
Medical Tests (Nuc Med, Echo etc): Report Reviewed by me (echo 03/04: EF 35-40%, MV repair (mean 5, trace MR), mod/severe AR, nl RV, TV repair (mean 2, mild TR), PASP 38)
Labs: Labs Reviewed by me
[2025-03-05] MEDS: LIPITOR 40 MG PO (16:30)
--- NOTE | 2025-03-05 16:35 | PTCARENOTE ---
assumed care at 330 - assessment and VS remain stable. Pt ambulating in hallways - mild RAE.
[2025-03-05] MEDS: TOPROL XL 25 MG PO (19:14)
[2025-03-05] MEDS: LOPRESSOR 25 MG PO (20:58)
[2025-03-05] MEDS: MAGNESIUM SULFATE 50 IV (21:17)
[2025-03-05 21:30] LABS: Blood Urea Nitrogen 20 mg/dl (9-20); Calcium 9.1 mg/dl (8.4-10.2); Carbon Dioxide 35 mmol/L (22-30); Chloride 98 mmol/L (98-107); Estimated Creatinine Clearance 97 ml/min; Glucose 119 mg/dl (70-99); Magnesium 2.0 mg/dl (1.6-2.3); Potassium 3.7 mmol/L (3.5-5.1); Sodium 134 mmol/L (135-145); eGFR > 60.00
[2025-03-05] MEDS: KCL ELIXIR 40 MEQ PO (22:53)
--- NOTE | 2025-03-06 00:56 | PTCARENOTE ---
Assumed care of patient at change of shift. Pt AAOx3, tele remains Afib w/ occasional PVCs. Ambulates self in room and denies any dizziness. Voiding yellow urine in urinal. At approx 20:48 patient complaining of 'palpitations'. HR in the 80-90's,
and BP 145/74. Luis Fernando [employer] made aware of palpitations and freq PVCs. Orders obtained for stat lab draw. K 3.7 & Mag 2, Luis Fernando HOPKINS aware. Pt received 40meq KCL Elixir and 25mg PO Lopressor. Sternal precautions maintained. Call bustillos in reach.
[2025-03-06 04:30] VITALS: BP 140/76
[2025-03-06 04:45] VITALS: BMI 26.7
[2025-03-06] MEDS: SYNTHROID 150 MCG PO (04:51)
[2025-03-06] MEDS: MIRALAX 17 GRAMS PO (04:51)
[2025-03-06 05:08] LABS: Hematocrit 33.7 % (39.0-52.0); Hemoglobin 10.8 g/dL (13.0-18.0); Mean Corp Hgb Conc. 32.0 g/dL (33.0-37.0); Mean Corpuscular Volume 102.1 fL (80.0-94.0); Platelet Count 455 10^3/uL (130-400); Red Cell Dist. Width 13.4 % (11.5-14.5)
[2025-03-06 05:14] LABS: Blood Urea Nitrogen 22 mg/dl (9-20); Calcium 9.1 mg/dl (8.4-10.2); Carbon Dioxide 34 mmol/L (22-30); Chloride 100 mmol/L (98-107); Estimated Creatinine Clearance 97 ml/min; Glucose 134 mg/dl (70-99); Magnesium 2.2 mg/dl (1.6-2.3); Potassium 4.0 mmol/L (3.5-5.1); Sodium 138 mmol/L (135-145); eGFR > 60.00
--- NOTE | 2025-03-06 05:21 | W.PN.CT ---
Addendum entered and electronically signed by Oscar Jacobs MD 03/06/25 09:11:
I saw and examined the patient.
The PA's note was reviewed and I agree with the note.
Comment:
Increased BB to 50mg Toprol BID
No further runs of VT - EP evaluation pending given low EF/VT
NPO post MN for SAJAN tomorrow
Continue diuresis (>2100 UO last 24 hours)
Original Note:
Today's Communication / Plan
-
- No significant issues overnight
- more PVCs noted, reported palpitations. Toprol at 25 mg, given additional 25 mg Lopressor, no bradycardia. Increased Toprol to 50 mg today.
- Follow lytes, aggressive K/Mg replacement
- ECHO: Moderately�reduced LV�systolic�function. Ejection fraction is 35-40%�(Stable). Global hypokinesis,�progressive moderate/severe aortic regurgitation, mitral valve and tricuspid valve repairs are stable
- Pending TTE vs possible SAJAN Friday
- Diuresis ongoing, UOP 550/2200 cc out in 12/24 hrs
- continue Lasix 40 mg IV BID, apixaban, asa, atorvastatin, Farxiga, Valsartan, Toprol
Assessment / Plan
-
s/p CABG x 4, MV repair, TV repair, MAZE, and EVI exclusion, Dr. Sullivan 02/16/25
Past Medical History
CAD
AFIB on Eliquis
Hypertension
Mitral regurgitation
Hyperlipemia
Hypothyroidism
Subjective
Procedure
Admitted for increased Shortness of Breath
-
Date of Service: March 06, 2025
Objective Data
-
Lab Results
03/06/25 04:43
03/06/25 04:43
PT 23.9 Sec (11.4-14.6) H 03/05/25 00:42
INR 2.13 03/05/25 00:42
APTT 45.9 Sec (23.4-35.0) H 03/05/25 00:42
Vital Signs
Vital Signs
Temp Pulse Resp BP Pulse Ox
97.9 F 97 20 140/76 93
03/06/25 04:31 03/06/25 05:00 03/06/25 04:31 03/06/25 04:30 03/06/25 04:31
CT Intake/Output/Weight
03/05/25 03/05/25 03/06/25
06:59 18:59 06:59
Intake Total 480 / 480 530 / 530
Output Total 500 / 500 1650 / 2200 550 / 2200
Balance -20 / -20 -1650 / -1670 -20 / -1670
SaO2: 93
Physical Exam
-
General: Awake and Oriented
Cardiovascular: Irregular rate & rhythm and Murmur
Respiratory: Clear and Decreased Breath Sounds
Extremities: Edema +2 and No Erythema
Data Reviewed
-
Lab Results: Results Reviewed
Medications: Active Meds Reviewed
Chest X-Ray: Report Reviewed
ECG: Report Reviewed
[2025-03-06 07:12] VITALS: BP 155/88
[2025-03-06] MEDS: TOPROL XL 50 MG PO ×2 (07:48→19:49)
[2025-03-06] MEDS: FARXIGA 10 MG PO (07:48)
[2025-03-06] MEDS: DIOVAN 40 MG PO (07:49)
[2025-03-06] MEDS: LOW STRENGTH ASPIRIN 81 MG PO (07:49)
[2025-03-06] MEDS: LASIX 40 MG IV ×2 (07:49→15:54)
[2025-03-06] MEDS: SENOKOT 8.6 MG PO ×2 (07:49→19:49)
[2025-03-06] MEDS: ELIQUIS 5 MG PO ×2 (07:49→19:49)
--- NOTE | 2025-03-06 08:44 | W.PN.CD ---
Today's Communication / Plan
-
SAJAN in AM
IV lasix
increase Toprol XL
Impression / Plan
-
74 yo male with PMH of CABG x 4, MV repair, TV repair, MAZE, and EVI exclusion, Dr. Sullivan 02/16/25; ICM EF 35-40%, chronic HFrEF, persistent A fib on eliquis, HTN is admitted with acute on chronic HFrEF.
# Acute on chronic HFrEF
-severe, requiring hospitalization for IV lasix and close monitoring of labs/tele
-continue lasix 40mg IV bid
# Aortic regurgitation
-mild/moderate-->moderate/severe
-SAJAN Friday given recent valve surgery
# NSVT: 25 beats
-was not on beta frantz due to post op bradycardia
-increase Toprol XL to 50 mg bid
-EP eval this admission
# ICM EF 35-40%
-starting Toprol XL, and titrating
-continue valsartan, farxiga
-titrate/add GDMT as tolerated
# CABG x 4, MV repair, TV repair, MAZE, and EVI exclusion, Dr. Sullivan 02/16/25
-echo 03/04: EF 35-40%, MV repair (mean 5, trace MR), mod/severe AR, nl RV, TV repair (mean 2, mild TR), PASP 38
# A fib, seems persistent
-cont Toprol XL and eliquis 5mg bid
# CAD/CABG
-ASA, statin
# HTN
-cont valsartan
-added Toprol XL
Physical Exam
Vital Signs/Labs
Vital Signs
Temp Pulse Resp BP Pulse Ox
98.5 F 96 17 155/88 93
03/06/25 07:12 03/06/25 07:12 03/06/25 07:12 03/06/25 07:12 03/06/25 07:12
03/05/25 03/06/25 03/07/25
06:59 06:59 06:59
Actual Weight 87.7 kg 86.8 kg
03/06/25 04:43
03/06/25 04:43
PT 23.9 Sec (11.4-14.6) H 03/05/25 00:42
INR 2.13 03/05/25 00:42
APTT 45.9 Sec (23.4-35.0) H 03/05/25 00:42
Magnesium 2.2 mg/dl (1.6-2.3) 03/06/25 04:43
03/04/25
15:44
Lje-I-Klxoyypjkgc Pept 2970
LAB Results
03/04/25
15:44
Troponin I 0.095 H*
Physical Exam
Constitutional: No acute distress and Comfortable
EENT: Moist mucous membranes
Cardiovascular: Rhythm & rate is regular, Pedal edema present, JVD present and Diastolic murmur present
Respiratory: Respiratory effort normal and Labored respirations
Neuro/Psych: AO x 3
Data Reviewed
-
Date of Service: March 06, 2025
EKG: Other (Tele: SR 90s, occasional PVC's)
Labs: Labs Reviewed by me
[2025-03-06 11:09] VITALS: BP 150/74
[2025-03-06 15:14] VITALS: BP 137/72
--- NOTE | 2025-03-06 16:37 | PTCARENOTE ---
Assessment and vitals as documented. Pt without complaints. Encouraging ambulation and IS use. appetite remains fair
[2025-03-06] MEDS: LIPITOR 40 MG PO (17:14)
[2025-03-06 19:19] VITALS: BP 149/73
[2025-03-06 22:35] VITALS: BP 150/67
--- NOTE | 2025-03-06 23:45 | PTCARENOTE ---
Tele remains Afib w/ occasional PVCs. Denies any pain or discomfort. Ambulating self in room. Patient w/ no BM since 03/02. Patient reports he's 'passing gas' and his appetite is fair. Patient aware to maintain NPO status on 03/07 for plan SAJAN in
AM. Call bustillos in reach.
[2025-03-07 04:06] VITALS: BP 147/75
[2025-03-07 04:17] VITALS: BMI 26.5
--- NOTE | 2025-03-07 04:21 | W.PN.CT ---
Today's Communication / Plan
-
NPO, plan for SAJAN, EP evaluation (brief episode of VT)�
Continue�Diuresis��
Toprol XL increase to�50mg�BID�
Assessment / Plan
-
s/p CABG x 4, MV repair, TV repair, MAZE, and EVI exclusion, Dr. Sullivan 02/16/25, Readmitted for SOB on 03/04. ECHO w/new [id number] AI
Past Medical History
CAD
AFIB on Eliquis
Hypertension
Mitral regurgitation
Hyperlipemia
Hypothyroidism
Subjective
Procedure
Admitted for increased Shortness of Breath
-
Date of Service: March 07, 2025
Objective Data
-
PT 23.9 Sec (11.4-14.6) H 03/05/25 00:42
INR 2.13 03/05/25 00:42
APTT 45.9 Sec (23.4-35.0) H 03/05/25 00:42
Vital Signs
Vital Signs
Temp Pulse Resp BP Pulse Ox
97.6 F 94 18 150/67 94
03/07/25 04:06 03/06/25 22:35 03/07/25 04:06 03/06/25 22:35 03/07/25 04:06
CT Intake/Output/Weight
03/06/25 03/06/25 03/07/25
06:59 18:59 06:59
Intake Total 530 / 530
Output Total 550 / 2200 1400 / 1725 325 / 1725
Balance -20 / -1670 -1400 / -1725 -325 / -1725
SaO2: 94
Physical Exam
-
General: Awake
Cardiovascular: Regular rate & rhythm
Sternum: Stable
Incision: Clean, Dry and Intact
Extremities: Edema +1
[2025-03-07 04:43] LABS: Hematocrit 35.1 % (39.0-52.0); Hemoglobin 11.2 g/dL (13.0-18.0); Mean Corp Hgb Conc. 31.9 g/dL (33.0-37.0); Mean Corpuscular Volume 107.0 fL (80.0-94.0); Platelet Count 431 10^3/uL (130-400); Red Cell Dist. Width 13.2 % (11.5-14.5)
[2025-03-07 05:03] LABS: Blood Urea Nitrogen 26 mg/dl (9-20); Calcium 9.0 mg/dl (8.4-10.2); Carbon Dioxide 35 mmol/L (22-30); Chloride 99 mmol/L (98-107); Estimated Creatinine Clearance 97 ml/min; Glucose 101 mg/dl (70-99); Magnesium 2.0 mg/dl (1.6-2.3); Potassium 4.0 mmol/L (3.5-5.1); Sodium 137 mmol/L (135-145); eGFR > 60.00
[2025-03-07] MEDS: SYNTHROID 150 MCG PO (05:28)
[2025-03-07 07:26] VITALS: BP 130/73
--- NOTE | 2025-03-07 07:55 | PTCARENOTE ---
Rec'd Pt A,A+Ox3, [place], no complaints. Pt NPO except meds for SAJAN today. Ambulating in room, myke well.
[2025-03-07] MEDS: ELIQUIS 5 MG PO (08:34)
[2025-03-07] MEDS: DIOVAN 40 MG PO (08:35)
[2025-03-07] MEDS: LOW STRENGTH ASPIRIN 81 MG PO (08:35)
[2025-03-07] MEDS: SENOKOT 8.6 MG PO (08:37)
[2025-03-07] MEDS: TOPROL XL 50 MG PO (08:37)
--- NOTE | 2025-03-07 08:45 | PTCARENOTE ---
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 AM meds given except Lasix and Farxiga. will give these when Pt returns from SAJAN.
[2025-03-07 10:18] LABS: Hematocrit 32.3 % (39.0-52.0); Hemoglobin 10.2 g/dL (13.0-18.0); Mean Corp Hgb Conc. 31.6 g/dL (33.0-37.0); Mean Corpuscular Volume 103.9 fL (80.0-94.0); Nucleated Red Blood Cells % 0 % (-); Platelet Count 400 10^3/uL (130-400); Red Cell Dist. Width 13.3 % (11.5-14.5)
[2025-03-07 10:28] LABS: INR 1.77; PT 20.8 Sec (11.4-14.6)
[2025-03-07 10:29] LABS: APTT 41.4 Sec (23.4-35.0)
--- NOTE | 2025-03-07 11:12 | W.PN.CD ---
Today's Communication / Plan
-
CTA and likely OR for aortic dissection
Impression / Plan
-
74 yo male with PMH of CABG x 4, MV repair, TV repair, MAZE, and VEI exclusion, Dr. Sullivan 02/16/25; ICM EF 35-40%, chronic HFrEF, persistent A fib on eliquis, HTN is admitted with acute on chronic HFrEF, subsequently found to have severe AR due to
aortic dissection.
# Aortic dissection, Moses type A
-seen on SAJAN today. associated with severe AR
-CT surgery aware. Plan is for stat CTA and likely OR today
# Acute on chronic HFrEF
-severe, requiring hospitalization for IV lasix and close monitoring of labs/tele
-continue lasix 40mg IV bid
# NSVT: 25 beats
-was not on beta frantz due to post op bradycardia
-increase Toprol XL to 75 mg bid
-EP eval this admission
# ICM EF 45-50%
-starting Toprol XL, and titrating
-continue valsartan, farxiga
-titrate/add GDMT as tolerated
# CABG x 4, MV repair, TV repair, MAZE, and EVI exclusion, Dr. Sullivan 02/16/25
-echo 03/04: EF 35-40%, MV repair (mean 5, trace MR), mod/severe AR, nl RV, TV repair (mean 2, mild TR), PASP 38
# A fib, seems persistent
-cont Toprol XL
-resume Eliquis once safe from a surgical standpoint
# CAD/CABG
-ASA, statin
# HTN
-cont valsartan
-added Toprol XL
Subjective: Shortness of breath has slightly improved since admission still needs to sleep sitting up. He denies chest pain.
Physical Exam
Vital Signs/Labs
Vital Signs
Temp Pulse Resp BP Pulse Ox
98 F 90 20 130/73 95
03/07/25 07:26 03/07/25 10:00 03/07/25 07:26 03/07/25 07:26 03/07/25 07:26
03/06/25 03/07/25 03/08/25
06:59 06:59 06:59
Actual Weight 191 lb 5.78 oz 190 lb 0.615 oz
03/07/25 10:08
PT 20.8 Sec (11.4-14.6) H 03/07/25 10:08
INR 1.77 03/07/25 10:08
APTT 41.4 Sec (23.4-35.0) H 03/07/25 10:08
Magnesium 2.0 mg/dl (1.6-2.3) 03/07/25 04:14
03/04/25
15:44
Mfy-V-Pmbyaqbazuj Pept 2970
LAB Results
03/04/25
15:44
Troponin I 0.095 H*
Physical Exam
Constitutional: No acute distress and Comfortable
Cardiovascular: Rhythm & rate is regular, Pedal edema present and Diastolic murmur present
Respiratory: Respiratory effort normal and Crackles Present
Neuro/Psych: AO x 3
Data Reviewed
-
Date of Service: March 07, 2025
Medical Decision Making: Reviewed Test Results, Test Interpretation and Review of Case with other Provider
EKG: Tracing Personally Visualized and interpreted
Echo: Tracing Personally Visualized and interpreted and Report Reviewed by me
Labs: Labs Reviewed by me
[2025-03-07 11:15] LABS: ACT+ - POC 206 Seconds (82-134)
--- NOTE | 2025-03-07 11:17 | W.CVOR.SURPR ---
CVOR Surgeon Immed Pre Op
-
I have examined this patient prior to performance of the scheduled procedure.
The patient's condition is unchanged from the time of the dictated/written History and
Physical and the patient is able to undergo the scheduled procedure.
Type A dissection, likely emanating from his proximal coronary anastomosis, propagating distally to the aorto-il bifurcation and then proximal down the NCC - causing more AI. Emergent type A repair with root replacement.
--- NOTE | 2025-03-07 11:24 | W.PN.UPDATE ---
Update Note
Progress Note Update
I received a call from Dr. Dallas that a dissection was identified during his SAJAN. This is the cause of his worsening AI as the flap extends down the to the NCC. I sent him for a stat CTA C/A/P, I suspect the PET is at his coronary button. I
met Mr. Law at the bedsides and also called his , plan for emergent Type A repair, will likely replace his AV +/- root and ascending/hemiarch. He understands that this is emergent and that it carries a higher mortality than his index operation.
He agrees to proceed.
[2025-03-07 11:32] LABS: Urine Character Clear (Clear)
[2025-03-07 11:42] LABS: Urine White Cell 0-2 /HPF (0-5)
[2025-03-07 11:54] LABS: ALT (SGPT) 34 U/L (0-50); AST (SGOT) 38 U/L (17-59); Albumin 2.4 g/dl (3.5-5.0); Alkaline Phosphatase 209 U/L (38-126); Blood Urea Nitrogen 27 mg/dl (9-20); Calcium 8.5 mg/dl (8.4-10.2); Carbon Dioxide 34 mmol/L (22-30); Chloride 99 mmol/L (98-107); Estimated Creatinine Clearance 113 ml/min; Glucose 95 mg/dl (70-99); Potassium 3.8 mmol/L (3.5-5.1); Sodium 133 mmol/L (135-145); Total Protein 5.4 g/dl (6.3-8.2); eGFR > 60.00
[2025-03-07 13:50] LABS: ACT+ - POC 666 Seconds (82-134)
[2025-03-07 14:18] LABS: ACT+ - POC 568 Seconds (82-134)
--- NOTE | 2025-03-07 14:51 | CM ---
Chart reviewed. Patient taken emergently to the OR. Patient independent of ADLS, lives with his in a [address] [facility], [address] [facility], has a SPC at home if needed. Plan is for the patient to return home with CT Transitional RN. CM to follow
[2025-03-07 15:12] LABS: ACT+ - POC 577 Seconds (82-134)
[2025-03-07 15:32] LABS: B.E. - POC 10.6 mmol/L; Glucose - POC 99 mg/dl (70-99); HCO3 - POC 37 mmol/L (21-28); Hematocrit - POC 24 % PCV (42-52); Hemodilution- POC Yes; Hemoglobin Calculated - POC 8.2; Ionized Calcium - POC 1.18 mmol/L (1.15-1.33); Lactate - POC 1.58 mmol/L (0.36-0.75); O2 Saturation %Calculated-POC 99.7 % (94-98); PCO2 - POC 62 mmHg (35-48); PO2 - POC 213 mmHg (83-108); POC Comment CPB; Potassium - POC 7.6 mmol/L (3.5-5.1); Sodium - POC 137 mmol/L (136-145); Specimen Type - POC Arterial; pH - POC 7.38 (7.35-7.45)
[2025-03-07 15:45] LABS: ACT+ - POC 536 Seconds (82-134)
[2025-03-07 15:58] LABS: B.E. - POC 13.1 mmol/L; Glucose - POC 152 mg/dl (70-99); HCO3 - POC 40 mmol/L (21-28); Hematocrit - POC 27 % PCV (42-52); Hemodilution- POC Yes; Hemoglobin Calculated - POC 9.3; Ionized Calcium - POC 1.05 mmol/L (1.15-1.33); Lactate - POC 4.46 mmol/L (0.36-0.75); O2 Saturation %Calculated-POC 99.9 % (94-98); PCO2 - POC 63 mmHg (35-48); PO2 - POC 297 mmHg (83-108); POC Comment WARM; Potassium - POC 5.3 mmol/L (3.5-5.1); Sodium - POC 144 mmol/L (136-145); Specimen Type - POC Arterial; pH - POC 7.41 (7.35-7.45)
[2025-03-07 16:07] LABS: ACT+ - POC 494 Seconds (82-134)
[2025-03-07 16:32] LABS: B.E. - POC 8.9 mmol/L; Glucose - POC 135 mg/dl (70-99); HCO3 - POC 34 mmol/L (21-28); Hematocrit - POC 28 % PCV (42-52); Hemodilution- POC Yes; Hemoglobin Calculated - POC 9.4; Ionized Calcium - POC 1.07 mmol/L (1.15-1.33); Lactate - POC 4.58 mmol/L (0.36-0.75); O2 Saturation %Calculated-POC 99.6 % (94-98); PCO2 - POC 48 mmHg (35-48); PO2 - POC 179 mmHg (83-108); POC Comment WARM; Potassium - POC 5.9 mmol/L (3.5-5.1); Sodium - POC 143 mmol/L (136-145); Specimen Type - POC Arterial; pH - POC 7.46 (7.35-7.45)
[2025-03-07 16:40] LABS: ACT+ - POC 429 Seconds (82-134)
[2025-03-07 17:10] LABS: B.E. - POC 6.8 mmol/L; Glucose - POC 116 mg/dl (70-99); HCO3 - POC 30 mmol/L (21-28); Hematocrit - POC 27 % PCV (42-52); Hemodilution- POC Yes; Hemoglobin Calculated - POC 9.2; Ionized Calcium - POC 1.05 mmol/L (1.15-1.33); Lactate - POC 5.12 mmol/L (0.36-0.75); O2 Saturation %Calculated-POC 100.0 % (94-98); PCO2 - POC 36 mmHg (35-48); PO2 - POC 344 mmHg (83-108); POC Comment CPB; Potassium - POC 6.0 mmol/L (3.5-5.1); Sodium - POC 142 mmol/L (136-145); Specimen Type - POC Arterial; pH - POC 7.53 (7.35-7.45)
[2025-03-07 17:20] LABS: ACT+ - POC 457 Seconds (82-134)
[2025-03-07 17:46] LABS: B.E. - POC 8.7 mmol/L; Glucose - POC 122 mg/dl (70-99); HCO3 - POC 33 mmol/L (21-28); Hematocrit - POC 29 % PCV (42-52); Hemodilution- POC Yes; Hemoglobin Calculated - POC 10.0; Ionized Calcium - POC 1.27 mmol/L (1.15-1.33); Lactate - POC 5.24 mmol/L (0.36-0.75); O2 Saturation %Calculated-POC 99.9 % (94-98); PCO2 - POC 43 mmHg (35-48); PO2 - POC 244 mmHg (83-108); POC Comment CPB; Potassium - POC 5.3 mmol/L (3.5-5.1); Sodium - POC 143 mmol/L (136-145); Specimen Type - POC Arterial; pH - POC 7.49 (7.35-7.45)
[2025-03-07 17:50] LABS: ACT+ - POC 244 Seconds (82-134)
[2025-03-07 17:58] LABS: ACT+ - POC 148 Seconds (82-134)
[2025-03-07] MEDS: FARXIGA PO (17:59)
[2025-03-07] MEDS: LASIX IV ×2 (17:59)
[2025-03-07] MEDS: LIPITOR PO (18:00)
[2025-03-07 18:17] LABS: B.E. - POC 0.8 mmol/L; Glucose - POC 124 mg/dl (70-99); HCO3 - POC 29 mmol/L (21-28); Hematocrit - POC 30 % PCV (42-52); Hemodilution- POC Yes; Hemoglobin Calculated - POC 10.2; Ionized Calcium - POC 1.24 mmol/L (1.15-1.33); Lactate - POC 6.75 mmol/L (0.36-0.75); O2 Saturation %Calculated-POC 99.7 % (94-98); PCO2 - POC 62 mmHg (35-48); PO2 - POC 231 mmHg (83-108); POC Comment POST; Potassium - POC 4.3 mmol/L (3.5-5.1); Sodium - POC 143 mmol/L (136-145); Specimen Type - POC Arterial; pH - POC 7.28 (7.35-7.45)
[2025-03-07 19:17] LABS: Glucose - Point of Care 126 mg/dl (70-99)
[2025-03-07 19:17] LABS: B.E. -3.0 mmol/L; HCO3 24.0 mmol/L (21-28); O2 Saturation % 99.6 % (94-98); PCO2 51 mmHg (35-48); PO2 170 mmHg (83-108); Potassium 4.4 mMOL/L (3.5-5.1); Sodium 138 mMOL/L (136-145)
[2025-03-07 19:18] LABS: B.E. - POC -0.9 mmol/L; Blood Urea Nitrogen - POC 25 mg/dl (3-120); Chloride - POC 102 mmol/L (96-111); Creatinine - POC 1.07 mg/dl (0.3-1.0); Glucose - POC 122 mg/dl (70-99); HCO3 - POC 27 mmol/L (21-28); Hematocrit - POC 31 % PCV (42-52); Hemodilution- POC Yes; Hemoglobin Calculated - POC 10.4; Ionized Calcium - POC 1.15 mmol/L (1.15-1.33); Lactate - POC 8.21 mmol/L (0.36-0.75); O2 Saturation %Calculated-POC 98.8 % (94-98); PCO2 - POC 60 mmHg (35-48); PO2 - POC 147 mmHg (83-108); Potassium - POC 4.4 mmol/L (3.5-5.1); Sodium - POC 146 mmol/L (136-145); Specimen Type - POC Arterial; pH - POC 7.26 (7.35-7.45)
--- NOTE | 2025-03-07 19:20 | W.PN.CT.SURG ---
CT Surgery Operative Note
-
CARDIAC SURGERY OPERATIVE REPORT
Preoperative Diagnosis: Type A dissection status post cardiac surgery
Postoperative Diagnosis: Same
Procedure(s) Performed:
1. Ultrasound-guided access using Seldinger technique 2 the right common femoral artery and vein with percutaneous access using a 25 Somali femoral venous cannula
2. Redo sternotomy with extensive adhesiolysis (Modifier 22 for additional dissection time of 1 hour)
3. Direct aortic cannulation using ultrasound and Seldinger technique with a SAJAN guidance verifying true lumen access
4. Moderate hypothermic circulatory arrest with antegrade cerebral perfusion
5. Hemiarch ascending aortic replacement
6. Aortic root replacement using a 27 mm valved conduit
7. Ligation of left and right coronary ostia as they were dissected coronary bypass grafting to an acute marginal
8. Relocation of previous vein grafts onto this acute marginal vein graft
9. Placement of temporary atrial ventricular pacing wires
10. Transesophageal echocardiography
11. Temporary chest packing, open chest
Date of Surgery: 03/07/25
Comorbidities:
1. 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
2. Worsening of aortic valve insufficiency to severe secondary to dissection
3. Acute on chronic congestive heart failure with volume overload secondary to new aortic valve insufficiency
4. Hypertension
5. Hyperlipidemia
6. Recent cardiac surgery over 20 days ago
7. Mitral valve insufficiency status post repair
8. Tricuspid insufficiency status post repair
9. Coronary artery disease status post CABG
Attending Surgeon: Ilan Sullivan MD, MS
Assistants: Ilan Clark PA-C (present and necessary to laboratory assistant, retraction, suction, exposure, suture management, and wound closure under my direction, vein harvest)
Anesthesiology: Francesco Nina MD and Jade Tate CRNA
Scrub and Circulating RNs: Rain Mancini, RN, Rusty Diane, SEBASTIAN
Dewer: Daren Saini CCP
Anesthesia: GETA
EBL: per perfusion records
Products: 2 prbcs
CPB Time: 222 minutes
Aortic Cross Clamp Time: 137 minutes
Total circulatory arrest time: 34 minutes
Antegrade cerebral perfusion time: 16 minutes
Indication(s) for Procedures: This is a 74-year-old male who I know well. He was progressing well and was discharged approximately 2 weeks ago however developed worsening shortness of breath over approximately a week and was failing to progress.
He had called the office and so we had referred him to the emergency department and ended up admitting him onto our service. He was found to be in heart failure with worsening AI. Transesophageal echocardiogram today demonstrated postcardiac
surgery dissection progressed down into the root causing worsening AI. He was taken to the OR for emergent type a repair.
Aortic Valve Description: Circumferential dissections of the root severe aortic valve insufficiency secondary to tearing of all 3 commissures. There is also dissection into the coronary blood vessels of both left and right coronary ostia. The
valve was not salvageable.
Findings: His left ventricular ejection fraction started in surgery is approximate 35 to 40% which was the same as his postoperative echo. He had more severe aortic valve insufficiency now which was likely secondary to a dissection that had
propagated likely from his proximal coronary bypass grafts down to the root and then distally down his abdominal aorta. The proximal margin was dissected circumferentially into the root at the level of the annulus. The commissures were essentially
free-floating causing his severe aortic valve insufficiency. His root was also extremely friable and there was separation and delamination in his coronary ostia. I felt that these coronary vessels were not safe to reimplant and given that he had
recent bypass grafts to his left system, I opted to ligate his left main and then bypass his acute marginal and ligate his right coronary ostia. The previous proximal coronary artery bypass graft were then harvested as a button for later
reimplantation. At this particular time we had reached the prior 27 �C and so we prepared the patient for circulatory arrest with antegrade cerebral perfusion. As part of his preparation, I dissected out his head vessels and double looped them
with Vesseloops. An ACP cannula was placed up the innominate artery as well as the left common carotid and the Vesseloops were cinched down. The distal anastomosis was performed after repairing the delamination with felt strips to create a
neomedia. I then sandwich using it 1 cm with felt strips on both the inside and outside of the hemiarch incision and tacked into place with 4-0 Prolene's. The distal anastomosis was performed using a 28 mm single SideArm graft that was beveled
using a single 3-0 Prolene suture line. At this particular time the aortic cannula was then relocated to the SideArm graft and flow to the body was resumed as well as rewarming up to 34 �C. Mostly would have been completed by that point including
annular sutures. I opted to ligate the coronary blood vessels at this time as I felt they were unsafe and not suitable for reimplantation. This was done with pledgeted sutures as well as large clips. A total of 14 pledgeted 2-0 Ethibond's were
placed around the annulus taking large bites from LVOT through annulus and through sewing cuff of the valved conduit. These were then secured to place using core knots. A graft to graft anastomosis was then performed using bovine pericardium as a
gasket. The acute marginal was previously identified on the heart was still bleeding and marked with an ink pen. I then performed a distal vein bypass graft to this acute marginal using 7-0 Prolene. The previous proximal coronary bypass graft
were then fashioned and an end-to-side anastomosis was created x 2 to this new vein graft. This was then taken off the ascending aortic graft. Additional pacing wires were placed and at this point we presumed a slow wean as well as full rewarmed.
Of note, I was never able to identify the MAGANA graft and it was extremely scarred given the immediate postoperative period. So elected to place a retrograde coronary sinus catheter and to give intermittent cardioplegia as well as high K solution to
arrest the heart. His heart was sluggish coming off of cardiopulmonary bypass but after starting inotropic and vasoactive medications, he was able to regain pulsatility and some stability. Given the extent of his operation, I elected to leave him
open with very light packing as did not kink his vein graft supplying essentially 90% of his heart. Flow probe assessment of the graft demonstrated a mean flow of 90 cc a minute with a pulse index of 1.4. Indicating excellent flow. His cardiac
index was actually around 2 while on inotropic support and epi of 12 and levo of 12 and milrinone at 0.25. Circulatory arrest time was 34 minutes with a total ACP time 16 minutes.
Specimen(s): Ascending aorta, proximal arch, and root.
Prosthesis:
1. Taylor KonectResilia valved conduit, 27 mm, serial #[id number]
2. Bovine pericardium, serial number [id number]
3. Gelweave 28 mm with an 8 mm SideArm, serial #[id number]
Retained objects:
1. Part of a Kerlix roll
2. Single vaginal packing
3. Love Retractor
Description of Procedure: The patient was taken to the operating room. Their identity and procedure to be performed were verified and they were positioned supine on the operating table. Induction via general anesthesia with endotracheal intubation
was performed and central venous access and arterial monitoring were inserted. A preoperative transesophageal echocardiogram was performed to assess cardiac function and valvular function. The patient was then prepped and draped from chin to feet in
a sterile fashion. A preoperative time-out was performed with all members of the team present. Ultrasound was then used to access the right common femoral vessels using Seldinger technique with micropuncture. 5 Somali sheath was placed into each
vessel. A redo midline chest incision was performed along with extraction of all previous wires. This early in the perioperative period his chest was not fully healed and so I was able to open with Hernandez scissors. The left and right hemisternum
were then elevated and care was taken to separate the RV from the posterior table. Of note, he was extremely scarred and stuck. The innominate vein was isolated and a vessel was placed circumferentially. I was able to then identify the innominate
artery as well as the left common carotid which were then double looped with vessels. The previous bypass grafts were also identified and marked. Full heparinization was given to achieve a therapeutic ACT. Using the previous bovine pericardial
patch repair site of the ascending aorta, I placed a pursestring suture here. I then entered using both ultrasound and SAJAN guidance verifying true lumen infiltration with the needle and then placement of the wire in the descending thoracic aorta.
I then serially dilated the tract and placed a 20 Somali EOPA cannulated deep into the ascending thoracic aorta and secured it temporarily. I then used the 5 Somali venous sheath and accessed the common femoral vein percutaneously after serial
dilations using a 25 Somali venous cannula. The ACT was confirmed to be over 400 and retrograde autologous priming was performed before commencing cardiopulmonary bypass. A left ventricular vent was placed at the right superior pulmonary vein and
secured. An additional retrograde coronary sinus catheter was placed via the right atrium using SAJAN guidance. While on cardiopulmonary bypass additional dissection was then performed. The AP window was extremely scarred from his previous surgery
just 20 days ago. The ascending thoracic aorta was circumferentially in order to facilitate a clamp site. I then initiated cooling down to a target temperature of approximately 30 �C. The aortic cross-clamp was placed after decreasing
the flow on the bypass and mean arterial pressure. The ascending thoracic aorta was then transected circumferentially and a total of 1.2L initial dose of retrograde and direct ostial antegrade Del-Nido cardioplegia solution was given and planned
for re-dosing intermittently as necessary as we had a patent MAGANA graft that was not safe to identify. Cold slush was placed into a sponge and topically on the RV while we systemically cooled to 30 degrees centigrade.
Carbon dioxide was used to flood the field. The location of both left and right coronary vessels were visualized in the root and found to be totally shredded. There is also circumferential dissection around all 3 commissures. Stay sutures were
placed at each commissure to facilitate exposure. The leaflets were excised and sent for pathological assessment. Stay sutures were placed at the left main and right coronary button was not able to be safely harvested as the dissection had
propagated into each coronary vessel. I elected to leave this for later. A total of 14 pledgeted 2-0 ethibond annular sutures were placed DUAE-wo-cavuv (inverted) circumferentially. At this point we had continued to cooled to 20 �C and so we are
ready for the distal anastomosis. Patient was placed into steep Trendelenburg position and the Vesseloops isolating the innominate artery and left common carotid were cinched down. We then turned off the pump and allow the patient to exsanguinate
into the reservoir. A drop sucker was placed into the ascending thoracic aorta. I then inspected the lumen of the arch descending and found no reentry tear. There was delamination here of the media in the adventitia which was repaired using some
felt and BioGlue to reapproximate the layers. I then placed retrograde coronary sinus catheters up into the innominate and left common carotid for ACP. [place] was then placed on the inside and outside tacked together. I then sized the hemiarch to a
28 single-sided arm graft which was beveled accordingly. The distal anastomosis was performed with 3-0 Prolene in a running fashion and a single layer. At this point I stopped antegrade cerebral perfusion and relocated the aortic cannula to the
SideArm graft which was tied in with a heavy silk suture. Flow was then resumed to the body after de-airing and a clamp was placed on the distal ascending aortic graft and we started to rewarm again to a target temperature of 34 �C. I then turned
my attention back towards the root. These annular sutures were brought through the sewing cuff of the valved conduit which as then parachuted into place. A Cor-Knot device was used to secure the annular sutures. Because I felt the coronary
vessels were essentially shredded I elected to ligate them. A graft to graft anastomosis was then performed with bovine pericardium as a gasket. I then identified the acute marginal branch in the mid proximal and performed an end-to-side
anastomosis for coronary bypass graft. This graft was then brought up in a loop and the previous vein graft was then fashioned and end-to-side anastomosis was performed x 2 with 7-0 Prolene. I cautery was used to make a small opening in the
ascending aortic graft and end-to-side anastomosis was created with 6-0 Prolene.
De-airing maneuvers were performed and temporary bipolar ventricular pacing wires were placed on the base of the right ventricle and temporary atrial pacing wires at the SVC/Atrial junction. The patient was placed in a Trendelenburg position and
flows on bypass were lowered. The aortic cross clamp was removed and flows were slowly brought back up. The suture lines appeared hemostatic. Transesophageal echocardiography revealed no AI and appropriate prosthetic function. There was initially
significant reduction in LV and RV function however after some time of resting and starting inotropic support he recovered. Once de-airing was satisfactory, the left ventricular vent was removed. After verifying acceptable parameters, we initiated
weaning from cardiopulmonary bypass. Once we were off cardiopulmonary bypass, the venous cannula was clamped and removed. A test dose of protamine was administered and the patient was monitored for any adverse reaction before resuming protamine.
Once half of the protamine dose was delivered, pump suckers were turned off and the systolic blood pressure was lowered for aortic decannulation. A heavy silk tie was then placed around the SideArm of the graft and the graft was then cut here.
Additional large clips were then placed on the stump reinforcement. The suture lines were inspected and hemostasis was confirmed after placement of several reinforcement 4-0 pledgeted sutures. Because his chest was extremely scarred, I could not
access the left hemithorax via the sternotomy incision and a small incision was made just underneath the pec muscle and a chest tube was placed through here. Mediastinal hemostasis was obtained. 3 24Fr Satish drains were placed within the
pericardium with one of them looping into the right hemithorax. I sternotomy retractor was left in place and a single vaginal packing was placed towards the right side of the mediastinum making sure not to kink off the vein graft. Ioban was placed
over top maintain sterility.
All instrument, sponge, and needle counts were confirmed to be correct x 2 at the end of the operation. The patient was transferred to the cardiac intensive care unit in critical but stable condition.
I, Dr. Ilan Sullivan, was present, scrubbed for, and performed all critical elements of this procedure.
lIan Sullivan MD, MS
Cardiothoracic Surgeon
[facility]
This dictation was created using the [email or web address] dictation system. Please excuse any grammatical, typographical, or 'sound alike' errors
[2025-03-07 19:29] LABS: APTT 32.5 Sec (23.4-35.0); INR 1.79; PT 21.0 Sec (11.4-14.6)
[2025-03-07 19:33] LABS: Hematocrit 31.5 % (39.0-52.0); Hemoglobin 9.6 g/dL (13.0-18.0); Platelet Count 199 10^3/uL (130-400)
[2025-03-07] MEDS: CALCIUM GLUCONATE 100 IV (19:37)
[2025-03-07] MEDS: SODIUM BICARBONATE 100 MEQ IV (19:41)
[2025-03-07] MEDS: LR 250 ML IV ×2 (19:41→20:30)
[2025-03-07] MEDS: NSS 500 IV ×2 (19:41→21:51)
[2025-03-07] MEDS: ANCEF 10 IV ×2 (19:42)
[2025-03-07] MEDS: NovoSeven RT (RECOMBINANT) 10 MG IV (19:45)
[2025-03-07] MEDS: BACTROBAN 2% OINTMENT 1 APPLIC NASAL (19:51)
[2025-03-07 19:55] LABS: Blood Urea Nitrogen 26 mg/dl (9-20); Estimated Creatinine Clearance 85 ml/min; Glucose 120 mg/dl (70-99); Magnesium 3.1 mg/dl (1.6-2.3)
[2025-03-07 20:30] LABS: Glucose - Point of Care 107 mg/dl (70-99)
[2025-03-07 20:50] LABS: B.E. -1.9 mmol/L; HCO3 23.7 mmol/L (21-28); O2 Saturation % 97.7 % (94-98); PCO2 43 mmHg (35-48); PO2 83 mmHg (83-108); Potassium 3.9 mMOL/L (3.5-5.1); Sodium 140 mMOL/L (136-145)
[2025-03-07] MEDS: KCL 50 IV (20:58)
[2025-03-07] MEDS: LEVOPHED 258 MG IV (21:00)
--- NOTE | 2025-03-07 21:00 | PTCARENOTE ---
Assumed care of pt from CVOR w/ open chest. Pt out ~1900. Intubated w/ Precedex infusing. A-fib w/ PVCs on the central monitor. HR 90-100s. Temporary epicardial v-wires intact and set to back up VVI 40/10/0.8. BPs 70s-80s/50s. CVP ~4-5. PAP's
20s/teens. CI 1.74. b/L radial and DP pulses present via doppler. ETT #8, 24 cm @ R lip. POX 96%. Vent settings as documented in worklist. Mediastinal CTx2 and R/L plueral CT to -10 suction. Output as documented. B/L lung sounds present anteriorly.
Abdomen soft. BS absent. Adams catheter intact and draining yellow urine. Left leg TOMI wrap intact. Chest open w/ retractor present and covered w/ CVOR dressing. R/L radial arterial lines and R femoral arterial line transduced -
leveled/zeroed/flushed. Right IJ cordis w/ swan @45 intact - leveled/zeroed/flushed. Precedex, Levo, Epi, and insulin infusing upon arrival. Marcell marroquin applied. Labs sent. EKG/Xray/adams care completed. Dr. Sullivan and CT surgery [id number] at bedside -
attempt to keep SBP's 90-100 and wean Precedex to assess neuro function, then begin prop/fent. Meds given as documented in MAR. See worklist for full nursing assessment and interventions.
[2025-03-07 21:01] LABS: INR 1.71; PT 20.3 Sec (11.4-14.6)
[2025-03-07] MEDS: ADRENALIN 258 MG IV (21:01)
[2025-03-07 21:02] LABS: APTT 32.2 Sec (23.4-35.0)
[2025-03-07 21:09] LABS: Glucose - Point of Care 92 mg/dl (70-99)
[2025-03-07 21:13] LABS: Triglycerides 64 mg/dl (10-149)
[2025-03-07 22:03] LABS: Glucose - Point of Care 92 mg/dl (70-99)
[2025-03-07 22:33] VITALS: BP 81/65
[2025-03-07 22:36] VITALS: BP_SYST 81
[2025-03-07 23:00] VITALS: BP 82/64
[2025-03-07 23:24] LABS: Hematocrit 32.0 % (39.0-52.0); Hemoglobin 9.8 g/dL (13.0-18.0); Platelet Count 227 10^3/uL (130-400)
[2025-03-07 23:26] LABS: Glucose - Point of Care 68 mg/dl (70-99)
[2025-03-07 23:27] LABS: Glucose - Point of Care 69 mg/dl (70-99)
[2025-03-07] MEDS: DEXTROSE 50% SYRINGE 12.5 GRAMS IV (23:28)
[2025-03-07] MEDS: CALCIUM GLUCONATE 130 MG IV (23:53)
[2025-03-07 23:56] LABS: Glucose - Point of Care 112 mg/dl (70-99)
[2025-03-08] VITALS (28 sets, daily range): BP systolic 48–117; BP diastolic 27–80; BMI 28.0
[2025-03-08] MEDS: ANCEF 5 IV ×2 (00:26→14:25)
[2025-03-08] MEDS: NSS 500 IV ×2 (00:27→20:35)
[2025-03-08 00:31] LABS: B.E. -9.5 mmol/L; HCO3 17.1 mmol/L (21-28); O2 Saturation % 99.9 % (94-98); PCO2 39 mmHg (35-48); PO2 125 mmHg (83-108); Potassium 5.4 mMOL/L (3.5-5.1)
[2025-03-08] MEDS: SODIUM BICARBONATE 50 MEQ IV ×6 (00:45→05:20)
--- NOTE | 2025-03-08 00:58 | PTCARENOTE ---
Pt reassessed. RASS -5. CPOT 0. Pupils 3mm, equal and reactive. Generalized twitching noted but no purposeful movements and pt not following commands. A-fib w/ frequent PVCs on the tele monitor. HR 90-100s. BPs dropping. 60-80s/40-50s. Vaso
infusing. Levo infusion maxed. Dobutamine and Vaso added. PAPs 20s/teens. CVP ~ 5. CI dropped to 1.3. CTPA aware. Pt remains intubated. Vent settings unchanged. A/C setting, FiO2 40%, POX 98%. Mediastinal CT x2 and R/L pleural CT to -10 suction.
Output as documented. Mediastinal output > pleural. Buenrostro catheter intact and draining yellow urine ~15 ml/hr. Open chest w/ retractor in place stable. Right IJ cordis w/ swan and arterial line x3 intact. All lines leveled, zeroed, and flushed.
Saline boluses administered as documented in MAR. Pt hypoglycemic - dextrose given, see MAR. Labs sent as ordered. Bicarb for acidosis - see MAR.
[2025-03-08 01:03] LABS: Glucose - Point of Care 89 mg/dl (70-99)
--- NOTE | 2025-03-08 01:11 | W.PN.CT ---
Today's Communication / Plan
-
Plan:
-Pt remains intubated, on Precedex. Unable to add Fentanyl and Propofol overnight d/t low BP. Received IV Tylenol and now Dilaudid
-Pt did finally woke up and was following simple commands @ 0230
-On Levophed weaned overnight from 30 to 6, Epinephrine @ 12, Vasopressin @ .04, Dobutamine @ 5, Precedex @ 0.8, Bicarb gtt @ 50 mL/hr and insulin gtt per protocol
-Chest packed and opened
-Eventually back to OR to close chest
-Wean vasopressors/Inotropes as tolerated
-Maintain on ventilator. Current settings: A/C, 500, 22, 5, .40
-Monitor chest tube output:
-Maintain temporary PW
-Maintain a-line/swan
-Maintain adams catheter
-Will transfuse 1u PRBC per Dr. Sullivan
-Monitor Lactic Acid, received 1L of NS overnight
-For Impella 5.5 placement this AM per Dr. Sullivan
Assessment / Plan
-
Assessment:
-S/P Emergent Redo sternotomy with extensive adhesiolysis (Modifier 22 for additional dissection time of 1 hour)/Hemiarch ascending aortic replacement/ Aortic root replacement using a 27 mm valved conduit/Ligation of left and right coronary ostia as
they were dissected coronary bypass grafting to an acute marginal/Relocation of previous vein grafts onto this acute marginal vein graft/Temporary chest packing, open chest, by Dr. Sullivan, 03/07/25, pod#1
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
-Worsening of aortic valve insufficiency to severe secondary to dissection
-Acute on chronic congestive heart failure with volume overload secondary to new aortic valve insufficiency
-Hypertension
-Hyperlipidemia
-Hypothyroidism
-AFIB on Eliquis
-Ischemic CM
-Recent cardiac surgery over 20 days ago
-Mitral valve insufficiency status post repair
-Tricuspid insufficiency status post repair
-Coronary artery disease status post CABG
-S/P CABG x 4, MV repair, TV repair, MAZE, and EVI exclusion, Dr. Sullivan 02/16/25, Readmitted for SOB on 03/04
-Acute intraop/postop blood loss/Anemia (transfused 2u PRBC's)
-Acute intraop and postop coagulopathy (Administered 10mg Factor VII); chest packed and kept opened
-Acute postop Pulmonary insufficiency
-Acute postop Metabolic Acidosis
-Acute postop Lactic acidosis
Discussed patient care with: Cardiology, Nursing, Respiratory Therapy, Pharmacy and Care Team
Subjective
Procedure
Admitted for increased Shortness of Breath
-
Date of Service: March 08, 2025
Pt remains intubated and
Objective Data
-
PT 20.3 Sec (11.4-14.6) H 03/07/25 20:43
INR 1.71 03/07/25 20:43
APTT 32.2 Sec (23.4-35.0) 03/07/25 20:43
Vital Signs
Vital Signs
Temp Pulse Resp BP Pulse Ox
98.1 F 98 22 105/60 97
03/08/25 01:00 03/08/25 01:02 03/08/25 01:00 03/08/25 01:00 03/08/25 01:02
CT Intake/Output/Weight
03/07/25 03/07/25 03/08/25
06:59 18:59 06:59
Intake Total 0 / 2133.3 2133.3 / 2133.3
Output Total 325 / 1725 410 / 410
Balance -325 / -1725 0 / 1723.3 1723.3 / 1723.3
SaO2: 97
Physical Exam
-
General: Other (sedated and intubated)
Cardiovascular: Regular rate & rhythm
Respiratory: Decreased Breath Sounds (at bases, otherwise clear)
Sternum: Other (open chest)
Incision: Clean, Dry, Intact and Dressing Intact
Extremities: Other (+trace edema)
Data Reviewed
-
Lab Results: Results Reviewed
Medications: Active Meds Reviewed
Chest X-Ray: Report Reviewed and Image Reviewed
ECG: Report Reviewed and Image Reviewed
[2025-03-08] MEDS: LEVOPHED 258 MG IV ×3 (01:34→17:58)
[2025-03-08] MEDS: OFIRMEV 100 IV (01:56)
--- NOTE | 2025-03-08 01:58 | PTCARENOTE ---
Pt intermittently initiating breathes on vent. Opening eyes to voice. Moves feet on command. Nodding head appropriately. Pt unable to squeeze hands when asked. CTPA at the bedside. IV Tylenol - see JUL.
[2025-03-08 02:04] LABS: Glucose - Point of Care 80 mg/dl (70-99)
[2025-03-08] MEDS: PRECEDEX 100 IV ×2 (02:42→13:35)
[2025-03-08 03:06] LABS: Glucose - Point of Care 77 mg/dl (70-99)
[2025-03-08 03:21] LABS: B.E. -10.0 mmol/L; HCO3 16.7 mmol/L (21-28); O2 Saturation % 99.7 % (94-98); PCO2 39 mmHg (35-48); PO2 121 mmHg (83-108); Potassium 4.8 mMOL/L (3.5-5.1)
[2025-03-08 04:09] LABS: Glucose - Point of Care 69 mg/dl (70-99)
[2025-03-08] MEDS: DEXTROSE 50% SYRINGE 12.5 GRAMS IV (04:11)
[2025-03-08 04:26] LABS: Glucose - Point of Care 107 mg/dl (70-99)
[2025-03-08] MEDS: CALCIUM GLUCONATE 130 MG IV (04:30)
[2025-03-08] MEDS: DILAUDID 0.25 MG IV ×2 (04:40→06:26)
--- NOTE | 2025-03-08 04:55 | PTCARENOTE ---
Pt reassessed. Pt nodding head appropriately, moving feet, and opening eyes to voice. Pt hand grasp very weak. Precedex restarted. PRN Dilaudid - see MAR. Pt a-fib w/ frequent PVC's on the tele monitor. HR 80-100s. BP 80s/50s. CVP ~5. PAPs
20s/teens. CI 1.63. Vent settings unchanged. POX 98%. CTx4 intact and maintained at -[address] x2 w/ +1 airleak. Output as documented. Buenrostro catheter intact and draining clear yellow urine. All lines leveled, zeroed, and flushed.
Open chest incision stable. Epi/dobut/vaso/levo/insulin/Precedex infusing as ordered. Pt hypoglycemic - protocol followed. ABG's trended - bicarb for acidosis, see MAR.
[2025-03-08 04:59] LABS: B.E. -8.1 mmol/L; HCO3 17.8 mmol/L (21-28); O2 Saturation % 99.7 % (94-98); PCO2 37 mmHg (35-48); PO2 131 mmHg (83-108); Potassium 4.7 mMOL/L (3.5-5.1)
[2025-03-08 05:04] LABS: Hematocrit 27.7 % (39.0-52.0); Hemoglobin 8.3 g/dL (13.0-18.0); Mean Corp Hgb Conc. 30.0 g/dL (33.0-37.0); Mean Corpuscular Volume 105.7 fL (80.0-94.0); Platelet Count 205 10^3/uL (130-400); Red Cell Dist. Width 18.6 % (11.5-14.5)
[2025-03-08 05:06] LABS: Glucose - Point of Care 90 mg/dl (70-99)
[2025-03-08 05:15] LABS: INR 3.06; PT 31.5 Sec (11.4-14.6)
[2025-03-08] MEDS: SYNTHROID PO (05:28)
[2025-03-08] MEDS: SODIUM BICARBONATE 1075 MEQ IV (05:34)
[2025-03-08 05:35] LABS: Albumin 1.6 g/dl (3.5-5.0); Alkaline Phosphatase 141 U/L (38-126); Blood Urea Nitrogen 28 mg/dl (9-20); Calcium 8.8 mg/dl (8.4-10.2); Carbon Dioxide 22 mmol/L (22-30); Chloride 106 mmol/L (98-107); Estimated Creatinine Clearance 42 ml/min; Glucose 98 mg/dl (70-99); Magnesium 2.8 mg/dl (1.6-2.3); Potassium 4.6 mmol/L (3.5-5.1); Sodium 146 mmol/L (135-145); Total Protein 3.6 g/dl (6.3-8.2); eGFR 44.65
[2025-03-08 05:53] LABS: ALT (SGPT) 556 U/L (0-50); AST (SGOT) 1414 U/L (17-59)
[2025-03-08] MEDS: PITRESSIN 100 IV ×3 (05:59→22:00)
[2025-03-08] MEDS: SODIUM BICARBONATE 1150 MEQ IV (06:01)
[2025-03-08] MEDS: ADRENALIN 258 MG IV (06:01)
[2025-03-08 06:05] LABS: Glucose - Point of Care 93 mg/dl (70-99)
--- NOTE | 2025-03-08 06:45 | W.PN.UPDATE ---
Update Note
Progress Note Update
He is neurologically intact and nodding yes and no to questions and moving extremities. He is escalating on vasoactive and inotropic support and I think some of this is working against us. His lactate is rising, and he is acidotic with evidence of
shock liver. I believe given his neurological status, this is our window to place temporary MSC to bridge him and reduce some of the inotropic/vasoactive meds. I discussed this with his spouse just now, obtained verbal consent, and plan is to
reorder the cases and move him to OR first. He has plts on hold from yesterday and will plan to give 2 FFP. His chest will likely remain open post 5.5 implantation. We will see.
--- NOTE | 2025-03-08 06:48 | W.CVOR.SURPR ---
CVOR Surgeon Immed Pre Op
-
I have examined this patient prior to performance of the scheduled procedure.
The patient's condition is unchanged from the time of the dictated/written History and
Physical and the patient is able to undergo the scheduled procedure.
[2025-03-08 06:59] LABS: B.E. - POC 9.1 mmol/L; Glucose - POC 96 mg/dl (70-99); HCO3 - POC 34 mmol/L (21-28); Hematocrit - POC 23 % PCV (42-52); Hemodilution- POC Yes; Hemoglobin Calculated - POC 7.7; Ionized Calcium - POC 1.08 mmol/L (1.15-1.33); Lactate - POC < 0.30 mmol/L (0.36-0.75); O2 Saturation %Calculated-POC 100.0 % (94-98); PCO2 - POC 49 mmHg (35-48); PO2 - POC 514 mmHg (83-108); POC Comment CPB; Potassium - POC 4.6 mmol/L (3.5-5.1); Sodium - POC 138 mmol/L (136-145); Specimen Type - POC Arterial; pH - POC 7.45 (7.35-7.45)
[2025-03-08 06:59] LABS: B.E. - POC 8.6 mmol/L; Glucose - POC 93 mg/dl (70-99); HCO3 - POC 34 mmol/L (21-28); Hematocrit - POC 29 % PCV (42-52); Hemodilution- POC No; Hemoglobin Calculated - POC 9.8; Ionized Calcium - POC 1.23 mmol/L (1.15-1.33); Lactate - POC < 0.30 mmol/L (0.36-0.75); O2 Saturation %Calculated-POC 99.9 % (94-98); PCO2 - POC 51 mmHg (35-48); PO2 - POC 348 mmHg (83-108); Potassium - POC 3.3 mmol/L (3.5-5.1); Sodium - POC 136 mmol/L (136-145); Specimen Type - POC Arterial; pH - POC 7.43 (7.35-7.45)
[2025-03-08 07:00] LABS: B.E. - POC 13.1 mmol/L; Glucose - POC 98 mg/dl (70-99); HCO3 - POC 38 mmol/L (21-28); Hematocrit - POC 24 % PCV (42-52); Hemodilution- POC Yes; Hemoglobin Calculated - POC 8.2; Ionized Calcium - POC 1.12 mmol/L (1.15-1.33); Lactate - POC < 0.30 mmol/L (0.36-0.75); O2 Saturation %Calculated-POC 100.0 % (94-98); PCO2 - POC 48 mmHg (35-48); PO2 - POC 398 mmHg (83-108); POC Comment CPB; Potassium - POC 6.0 mmol/L (3.5-5.1); Sodium - POC 136 mmol/L (136-145); Specimen Type - POC Arterial; pH - POC 7.50 (7.35-7.45)
[2025-03-08 07:08] LABS: Glucose - Point of Care 109 mg/dl (70-99)
[2025-03-08 07:47] LABS: ACT+ - POC 263 Seconds (82-134)
--- NOTE | 2025-03-08 08:19 | CON.INTV ---
Consultation
Consultation Request
Date/Time Consultation Requested: 03/07/2025 - 1808
Date/Time Consultation Performed: 03/08/2025 - 824
Requesting Provider: KRISHNA Henson
Performing Provider: Dr. Rolon
Reason for Consultation: Type A Ao dissection with redo sternotomy
Medical History
-
Chief Complaint: Increasing SOB
History of Present Illness:
74-year-old male with a past medical history of multivessel CAD s/p CABG, history of severe MR s/p radical mitral valve repair, severe tricuspid valve insufficiency s/p tricuspid valve repair, chronic HFmrEF, hyperlipidemia, hypertension, paroxysmal
A-fib on Eliquis s/p open left atrial maze + left atrial appendage exclusion, hypothyroidism and history of colon adenoma who presents with shortness of breath, poor appetite and ankle swelling. Patient recently had a cardiothoracic surgery on 02/16
after proceeding left + right heart catheterization on 02/04/2025 showed triple-vessel CAD with mildly elevated biventricular filling pressures. Patient was found to have acute postoperative blood loss anemia, postoperative coagulopathy and he
improved and was able to be discharged home on 02/22/2025. He is now returning with shortness of breath with exertion, lower extremity edema and imaging consistent with acute decompensated heart failure. IV Lasix started. Echo performed on
03/04/2025 showed reduced EF now at 35-40%, global hypokinesis, with worsening aortic regurgitation from mild/moderate to moderate/severe.He was also started on metoprolol due to NSVT. Given the worsening aortic insufficiency, a SAJAN was performed
on 03/07/2025 showing a [place] type a DeBakey class I aortic dissection with severe aortic regurgitation due to left versus noncoronary cusp prolapse and aortic dissection. CT surgery notified and a stat CT angio chest/abdomen/pelvis was
performed confirming an aortic dissection extending throughout the aorta beginning at the root and extending to the aortic bifurcation. There also were small bilateral pleural effusions with other postoperative changes along the sternum with a
possible small hematoma. Patient brought to the OR and underwent a redo sternotomy with extensive adhesiolysis, hemiarch ascending aortic replacement, aortic root replacement, ligation of left and right coronary ostia as they were dissected, and
previous vein grafts were relocated onto the acute marginal vein graft, and his chest was left open. Patient transferred to the CVICU postoperatively, and granular operator services consulted for additional management/recommendations.
When I saw the patient today, the Impella was in place on P4 with output of 2.3 L/min. Patient currently intubated on SIMV at 22/500/10/60%, with PSV: 5, and PIP 29 cmH2O, breathing at 22 breaths/min and VTe 423 cc. Currently sedated on Precedex
at 0.2 mcg/kg/hr, also on amiodarone at 1 mg/hr, dobutamine at 5 mcg/kg/min, vasopressin at 0.04 units/min, epinephrine at 3 mcg/min, Levophed at 12 mcg/min and insulin drip at 1.2 units/hr. Current heart rate is 119 with BP via NIBP: 93/65; PAP is
33/26, and saturating 100%. Arterial catheter measurements are as follows: Left radial A-line: 93/64, right radial A-line: 94/62, right femoral A-line: 90/63.
PMHx: Multivessel CAD s/p CABG x 4 (02/16/2025), history of severe mitral valve insufficiency s/p radical mitral valve repair (02/16/2025), severe tricuspid valve insufficiency (functional) s/p simple tricuspid valve repair (02/16/2025), chronic
HFmrEF, hyperlipidemia, hypertension, paroxysmal A-fib s/p open left atrial maze + EVI�exclusion (02/16/2025) on Eliquis, mild aortic valve insufficiency secondary to leaflet prolapse, hypothyroidism, history of colon adenoma
PSHx: Appendectomy (1959), neck lipoma excision (01/09)
Past Medical History
Past Medical History: Other (Above as per HPI)
Past Surgical History: Other (Above as per HPI)
Social History
Tobacco: Former Smoker (Quit 30 years ago)
Alcohol: Occasional (Rare)
Drug: None
Personal:
Living: With Family
Employment: Retired
Family History
Family History: Cancer (Father + mother; sister: cervical cancer)
Allergies / Home Medications
Allergies
Allergy/AdvReac Type Severity Reaction Status Date / Time
No Known Allergies Allergy Verified 02/10/25 11:39
Home Medications
�Medication �Instructions �Recorded �Confirmed �Last Taken �Type
levothyroxine 150 mcg tablet 150 mcg PO DAILY Thyroid 12/11/23 03/05/25 03/05/25 History
L.acidophilus-B.animalis-B.bifidum 1 cap PO DAILY Supplement 10/22/24 03/05/25 03/05/25 History
25 billion cell-FOS 100 mg capsule
(Probiotic Complex)
apixaban 5 mg tablet (Eliquis) 5 mg PO BID Blood Clot 10/22/24 03/05/25 03/05/25 History
Prevention/Tx
multivitamin 1 tab PO DAILY Supplement 10/22/24 03/05/25 03/05/25 History
atorvastatin 40 mg tablet 40 mg PO QPM #90 tabs 02/04/25 03/05/25 03/05/25 Rx
polyethylene glycol 3350 17 4 g PO DAILY PRN constipation 02/10/25 03/05/25 1 Week Ago History
gram/dose oral powder (Miralax) ~02/26/25
aspirin 81 mg chewable tablet 81 mg PO DAILY Blood Clot 02/17/25 03/05/25 03/05/25 History
Prevention/Tx
acetaminophen 325 mg tablet 650 mg (2 x 325 mg) PO Q6HPRN PRN 02/22/25 03/05/25 1 Week Ago Rx
mild pain,headache,temp >101F #0 ~02/26/25
tabs
dapagliflozin propanediol 10 mg 10 mg PO DAILY Heart Failure #60 02/22/25 03/05/25 03/05/25 Rx
tablet tabs
valsartan 40 mg tablet 40 mg PO DAILY Heart 02/22/25 03/05/2525 Rx
disease/condition #60 tabs
Review of Systems
-
Unable to Obtain full review of systems at this time due to: Patient Intubation
Vitals / Labs / Diagnostic Testing
Vital Signs
Temp Pulse Resp BP Pulse Ox
98.8 F 123 0 69/46 100
03/08/25 18:00 03/08/25 20:10 03/08/25 20:10 03/08/25 17:21 03/08/25 20:10
Laboratory Results
03/07/25 03/07/25 03/08/25
20:42 20:43 00:25
PT 20.3 H
INR 1.71
APTT 32.2
pH 7.35 7.25 L
pCO2 43 39
pO2 83 125 H
HCO3 23.7 17.1 L
O2 Delivery Level
03/08/25 03/08/25 03/08/25
03:07 04:48 08:00
PT 31.5 H
INR 3.06
APTT
pH 7.24 L 7.29 L Cancelled
pCO2 39 37 Cancelled
pO2 121 H 131 H Cancelled
HCO3 16.7 L 17.8 L Cancelled
O2 Delivery Level Cancelled
03/08/25 03/08/25 03/08/25
10:29 11:44 14:06
PT 32.7 H 16.2 H
INR 3.22 1.27
APTT 39.5 H 33.9
pH 7.43 7.47 H 7.45
pCO2 39 34 L 38
pO2 114 H 115 H 125 H
HCO3 25.9 24.7 26.4
O2 Delivery Level
03/08/25
16:47
PT 17.5 H
INR 1.41
APTT 36.3 H
pH 7.42
pCO2 39
pO2 168 H
HCO3 25.3
O2 Delivery Level
Diagnostic Testing:
Physical Exam
-
HEENT: Normocephalic, Anicteric and Other (ETT in place)
Cardiovascular: S1/S2, Peripheral Edema (negative) and Other (Tachycardic)
Respiratory: Wheeze (negative), Rales (negative), Rhonchi (negative), Other (Mechanical breath sounds heard bilaterally) and Other (Bilateral pleural chest tubes + mediastinal chest tubes x 2)
GI: Soft, Non Distended, Non Tender and Normal Bowel Sounds
Neurology: Tremors (negative) and Other (Sedated)
Skin: Warm and Dry
General: Respiratory Distress (negative), Comfortable, Fever (negative) and Chills (negative)
Assessment
-
Assessment: 74-year-old male with a past medical history of multivessel CAD s/p CABG, history of severe MR s/p radical mitral valve repair, severe tricuspid valve insufficiency s/p tricuspid valve repair, chronic HFmrEF, hyperlipidemia,
hypertension, paroxysmal A-fib on Eliquis s/p open left atrial maze + left atrial appendage exclusion, hypothyroidism and history of colon adenoma who presents with shortness of breath, poor appetite and ankle swelling. Patient recently had a
cardiothoracic surgery on 02/16 after proceeding left + right heart catheterization on 02/04/2025 showed triple-vessel CAD with mildly elevated biventricular filling pressures. Patient was found to have acute postoperative blood loss anemia,
postoperative coagulopathy and he improved and was able to be discharged home on 02/22/2025. He is now returning with shortness of breath with exertion, lower extremity edema and imaging consistent with acute decompensated heart failure. IV Lasix
started. Echo performed on 03/04/2025 showed reduced EF now at 35-40%, global hypokinesis, with worsening aortic regurgitation from mild/moderate to moderate/severe.He was also started on metoprolol due to NSVT. Given the worsening aortic
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 CT surgery notified and a stat CT
angio chest/abdomen/pelvis was performed confirming an aortic dissection extending throughout the aorta beginning at the root and extending to the aortic bifurcation. There also were small bilateral pleural effusions with other postoperative
changes along the sternum with a possible small hematoma. Patient brought to the OR and underwent a redo sternotomy with extensive adhesiolysis, hemiarch ascending aortic replacement, aortic root replacement, ligation of left and right coronary
ostia as they were dissected, and previous vein grafts were relocated onto the acute marginal vein graft, and his chest was left open. Patient transferred to the CVICU postoperatively, and granular operator services consulted for additional
management/recommendations.
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
(02/16/2025), chronic HFmrEF, hyperlipidemia, hypertension, paroxysmal A-fib s/p open left atrial maze + EVI�exclusion (02/16/2025) on Eliquis, mild aortic valve insufficiency secondary to leaflet prolapse, hypothyroidism, history of colon adenoma
Impression:
#Type A aortic dissection with resultant severe aortic regurgitation s/p redo sternotomy with extensive adhesiolysis, moderate hypothermic circulatory arrest, hemiarch ascending aortic replacement, aortic root replacement, ligation of left and right
coronary ostia as they were dissected followed by relocation of previous vein grafts onto acute marginal vein graft, and chest left open (POD #1)
#Cardiogenic shock now on multiple vasopressors and placement of a 5.5 direct aortic Impella LVAD with subsequent chest closure in usual fashion (POD #0)
#IRON with proximal right renal artery narrowing with decreased right kidney perfusion (per CTA chest/abdomen/pelvis from 03/07/2025)
#Postoperative coagulopathy
#Lactic acidosis
#Acute HFrEF exacerbation (present on admission)
#Shock liver with hyperbilirubinemia
#Chronic anemia (baseline 9.5-11 g/dL)
#Multivessel CAD s/p CABG x 4, severe mitral valve insufficiency s/p radical mitral valve repair, severe tricuspid valve insufficiency (functional) s/p simple tricuspid valve repair (all on 02/16/2025)
#Paroxysmal A-fib s/p open left atrial maze + EVI�exclusion (02/16/2025) on Eliquis
Plan:
Ventilator settings reviewed
FiO2 will be weaned to maintain SpO2 >90-94%
Minute ventilation will be adjusted
Arterial blood gases will be monitored
Spontaneous breathing trial will be attempted with hopeful extubation after anesthesia/sedation wear off
prn nebulized bronchodilators - not currently bronchospastic
Pulmonary artery catheter parameters will be followed
Pressors/antihypertensive/inotropes/diuretics will be provided as needed
Continue Impella and wean down as tolerated, per CT surgery team
Maintain MAP>65
Replete electrolytes with K>4, Mg>2
Continue trending lactate until <2 mmol/L
Monitor chest tube output (bilateral pleural chest tubes + mediastinal chest tubes x 2)
Monitor hemoglobin
Monitor platelet count and coags
Transfuse blood products as needed to maintain Hb>7g/dL, plt>50k (given post-operative status)
CT surgery managing chest tubes
Monitor blood sugar to maintain euglycemia with goal BG 110-140
Insulin drip per protocol
Nephrology consulted and given his reduction in UOP today, he is likely heading towards CRRT
Aspiration precautions
VAP prevention protocol
DVT prophylaxis: Eliquis currently on hold (last dose morning of 03/07/2025)
Early nutrition when able
Early mobilization
Patient is critically ill; continue management in CVICU - [employer] Receptionist service will continue to follow along.
Critical care statement: A total of 51 minutes of critical care time was provided for this patient today. This includes management of ventilator, spontaneous breathing trial, arterial blood gases, pressors, of unstable vital signs, evaluation of the
patient at bedside, reviewing the patient's pertinent medical records including radiographs, microbiology, laboratory evaluations, and discussion with primary team and critical care nursing.
Data:
CTA chest/abdomen/pelvis with/without contrast 03/07/2025:
1.There is an aortic dissection extending throughout the aorta beginning at the root and extending to the aortic bifurcation consistent with [place] type A dissection.The aortic branch arteries appear to be supplied off the true lumen. There is
associated moderate narrowing of the descending thoracic aorta and proximal abdominal aorta. Additionally there is narrowing at the proximal right renal artery with associated asymmetrically decreased perfusion of the right kidney.
2. Small bilateral pleural effusions with adjacent atelectasis.
3. Postoperative changes along the sternum with a possible small hematoma.
[2025-03-08 09:10] LABS: B.E. - POC -3.8 mmol/L; Glucose - POC 109 mg/dl (70-99); HCO3 - POC 22 mmol/L (21-28); Hematocrit - POC 23 % PCV (42-52); Hemodilution- POC No; Hemoglobin Calculated - POC 7.9; Ionized Calcium - POC 1.25 mmol/L (1.15-1.33); Lactate - POC 16.50 mmol/L (0.36-0.75); O2 Saturation %Calculated-POC 99.9 % (94-98); PCO2 - POC 40 mmHg (35-48); PO2 - POC 348 mmHg (83-108); Potassium - POC 4.2 mmol/L (3.5-5.1); Sodium - POC 147 mmol/L (136-145); Specimen Type - POC Arterial; pH - POC 7.34 (7.35-7.45)
[2025-03-08 09:19] LABS: ACT+ - POC 359 Seconds (82-134)
[2025-03-08 09:29] LABS: ACT+ - POC 214 Seconds (82-134)
[2025-03-08] MEDS: BACTROBAN 2% OINTMENT NASAL (09:31)
[2025-03-08 09:46] LABS: B.E. - POC 1.7 mmol/L; Glucose - POC 172 mg/dl (70-99); HCO3 - POC 27 mmol/L (21-28); Hematocrit - POC 25 % PCV (42-52); Hemodilution- POC Yes; Hemoglobin Calculated - POC 8.6; Ionized Calcium - POC 1.21 mmol/L (1.15-1.33); Lactate - POC 12.13 mmol/L (0.36-0.75); O2 Saturation %Calculated-POC 99.5 % (94-98); PCO2 - POC 45 mmHg (35-48); PO2 - POC 169 mmHg (83-108); Potassium - POC 4.3 mmol/L (3.5-5.1); Sodium - POC 149 mmol/L (136-145); Specimen Type - POC Arterial; pH - POC 7.39 (7.35-7.45)
--- NOTE | 2025-03-08 10:15 | PTCARENOTE ---
received pt from CVOR at 1005. pt intubated, sedated. ETT size 8.0, 24cm at the lip. R IJ cordis w/ swan floated to 45 cm. R radial a-line. L radial a-line. R femoral a-line. all lines leveled, zeroed, flushed. Impella 5.5 set at P-3, secured at
38.5cm. pt in a sinus rhythm w/ frequent PACs and PVCs w/ occasional pacing. temp epicardial A/V wires w/ back up settings VVI 50/10/0.8. CT x4 (mediastinal x2, L & R pleural) to -20cm wall suction, draining sanguineous drainage. abd s/n, absent BS.
adams catheter draining clear, yellow colored urine. all surgical sites stable, CDI. PIV x2 intact. see worklist for complete nursing assessment, interventions, gtt titrations, VS, and I&Os.
[2025-03-08 10:24] LABS: B.E. - POC 5.0 mmol/L; Blood Urea Nitrogen - POC 28 mg/dl (3-120); Chloride - POC 105 mmol/L (96-111); Creatinine - POC 1.62 mg/dl (0.3-1.0); Glucose - POC 138 mg/dl (70-99); HCO3 - POC 29 mmol/L (21-28); Hematocrit - POC 24 % PCV (42-52); Hemodilution- POC Yes; Hemoglobin Calculated - POC 8.2; Ionized Calcium - POC 1.15 mmol/L (1.15-1.33); Lactate - POC 11.90 mmol/L (0.36-0.75); O2 Saturation %Calculated-POC 93.5 % (94-98); PCO2 - POC 38 mmHg (35-48); PO2 - POC 63 mmHg (83-108); Potassium - POC 4.2 mmol/L (3.5-5.1); Sodium - POC 151 mmol/L (136-145); Specimen Type - POC Arterial; pH - POC 7.49 (7.35-7.45)
[2025-03-08 10:33] LABS: Glucose - Point of Care 158 mg/dl (70-99)
--- NOTE | 2025-03-08 10:41 | W.PN.ANS.POP ---
Anesthesia Post Operative
- Anesthesia Post Op Note
Vital Signs Stable-See Nursing Note: Yes (on pressors, s/p impella 03/08/25)
Airway Patent: Yes (intubated)
Adequate Pain Control: Yes (sedated)
Change in Mental Status: No
Current Postoperative Nausea & Vomiting: No
Anesthesia Complications: No
General Anesthetic Recall: No
Unplanned Admission: No
Post Op Hydration Adequate: Yes
[2025-03-08 10:42] LABS: B.E. 1.5 mmol/L; HCO3 25.9 mmol/L (21-28); O2 Saturation % 99.5 % (94-98); PCO2 39 mmHg (35-48); PO2 114 mmHg (83-108); Potassium 4.5 mMOL/L (3.5-5.1); Sodium 144 mMOL/L (136-145)
[2025-03-08 10:58] LABS: Hematocrit 24.9 % (39.0-52.0); Hemoglobin 7.7 g/dL (13.0-18.0); Mean Corp Hgb Conc. 30.9 g/dL (33.0-37.0); Mean Corpuscular Volume 101.2 fL (80.0-94.0); Platelet Count 131 10^3/uL (130-400); Red Cell Dist. Width 18.0 % (11.5-14.5)
[2025-03-08 11:01] LABS: APTT 39.5 Sec (23.4-35.0); INR 3.22; PT 32.7 Sec (11.4-14.6)
[2025-03-08 11:02] LABS: Fibrinogen 203 MG/DL (199-459)
[2025-03-08 11:07] LABS: D-Dimer 2.46 ug/mlFEU (0.00-0.50)
[2025-03-08 11:18] LABS: Albumin 1.7 g/dl (3.5-5.0); Alkaline Phosphatase 110 U/L (38-126); Blood Urea Nitrogen 34 mg/dl (9-20); Calcium 9.0 mg/dl (8.4-10.2); Carbon Dioxide 29 mmol/L (22-30); Chloride 105 mmol/L (98-107); Estimated Creatinine Clearance 52 ml/min; Glucose 145 mg/dl (70-99); Magnesium 2.5 mg/dl (1.6-2.3); Potassium 4.3 mmol/L (3.5-5.1); Sodium 143 mmol/L (135-145); Total Protein 3.5 g/dl (6.3-8.2); eGFR 57.29
--- NOTE | 2025-03-08 11:35 | CM ---
Chart reviewed. Patient remains in critical condition, intubated and going back to the OR for an impella. Patient is independent of ADLS, lives with his in a [address], [facility], ambulates with a SPC. CM to follow up on patient's functional
assessment when medically stable. Plan is for the patient to return home with CT Transitional RN vs Rehab. CM to follow
[2025-03-08 11:36] LABS: ACT-LR - POC 178 Seconds (116-155)
--- NOTE | 2025-03-08 11:49 | W.PN.CT.SURG ---
CT Surgery Operative Note
-
CARDIAC SURGERY OPERATIVE REPORT
Preoperative Diagnosis: Open chest with escalating inotropic and vasoactive medicine support, post cardiotomy LV failure
Postoperative Diagnosis: Same
Procedure(s) Performed:
1. The temporary dressing over top of the open chest was removed
2. Placement of atrial pacing wires
3. Anastomosis of a 10 mm straight tube graft off of the ascending aortic graft, graft to graft anastomosis
4. Graft tunneled to the left supra clavicular region between the strap muscles
5. Placement of a 5.5 direct aortic Impella LVAD
6. Chest closure in usual fashion
Date of Surgery: 03/08/2025
Comorbidities:
1. 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
2. Worsening of aortic valve insufficiency to severe secondary to dissection
3. Acute on chronic congestive heart failure with volume overload secondary to new aortic valve insufficiency
4. Hypertension
5. Hyperlipidemia
6. Recent cardiac surgery over 20 days ago
7. Mitral valve insufficiency status post repair
8. Tricuspid insufficiency status post repair
9. Coronary artery disease status post CABG
10. Post cardiotomy shock
Attending Surgeon: Ilan Sullivan MD, MS
Assistants: Ida Hernandez PA-C (present and necessary to sampler first, suction, exposure, suture management, and wound closure under my direction)
Anesthesiology: Sam Espinal MD and Macho Carrington CRNA
Scrub and Circulating RNs: Garret Lala RN, Rain Mancini RN
Friction Welding Machine Operator: Mila Barrientos CCP
Anesthesia: GETA
EBL: per perfusion records
Products: 2 FFP
Implants:
10 mm Hemashield [place] straight tube graft, serial #[id number]
5.5 Impella LVAD, #[id number]
Indication(s) for Procedures: This is a 74-year-old male underwent type a dissection repair with aortic root replacement hemiarch under circulatory arrest with antegrade cerebral perfusion. Over the evening he developed increasing inotropic and
vasoactive medication support. His lactate was also rising and he was had evidence of shock liver. Given the escalation in medical support, the decision was made to implant a temporary MCS device to help offload the LV and reduce his
vasoactive/inotropic support.
Findings: His left ventricular ejection fraction echo was approximate 25% with dilated LV. After the graft was sewn onto the ascending thoracic aortic graft it was tunneled out towards the left supraclavicular fossa between the strap muscles. A
temporary working sheath was inserted and a pigtail was used to reflux across the aortic valve bioprosthesis. Once this was accomplished under SAJAN guidance a .018 [place] Plus wire was inserted into the pigtail and the pigtail was walked off. The
device at this point had been prepped and flushed and was mounted onto the steel core wire. We then manually guided through the 10 mm graft into the ascending aortic graft and then gently across the aortic valve. The wire was then removed and the
Impella device was directed down towards the apex. We initially started at a level P4 and then came down to P3. He immediately had a reduction in inotropic and vasoactive medication support. 5000 heparin was given while we were sewing the graft
initially. We then reversed his ACT and given the hemostasis appeared to be appropriate I opted to close this test in the usual fashion.
Description of Procedure: The patient was taken to the operating room. Their identity and procedure to be performed were verified and they were positioned supine on the operating table. The patient was already intubated from the previous operation
and his chest was already open. A preoperative transesophageal echocardiogram was performed to assess cardiac function and valvular function. The patient was then prepped and draped from chin to groin in a sterile fashion. A preoperative time-out
was performed with all members of the team present. His previous temporary dressing was then removed and the wound was irrigated with antibiotic solution. A Curlex was removed and 1 single vaginal pack was removed. 5000 heparin was given and a
partial occluder was applied to the ascending aortic graft using an eye cautery he was incised and longitudinal fashion. A 10 mm straight to grab was then beveled and tunneled out into the left supraclavicular fossa. A graft to graft anastomosis
was done with 4-0 Prolene in a running fashion. Biological glue was then applied on the base for support. Once the clamp was removed a single repair stitch was placed at the heel. A temporary working sheath was then inserted into the graft and
tied/clamped. The pigtail was then used to reflux across the valve and exchanged for an 018 wire. The Impella was then positioned as described above. The temporary working she was then removed after placing a soft jaw clamp on the graft
proximally. The graft was then cut down to a shorter length and the device sheath was then inserted and tied onto the graft. This was then secured to the skin with 3-0 Prolene.
After confirming that the vein bypass graft was not kinked or compressed we verified hemostasis. The previous chest drains were then cleaned and new Pleur-evac's were placed onto the ends. The sternum was approximated with eight #7 stainless steel
wires. Fascia was approximated with #1 vicryl suture. The subcutaneous, dermis and epidermis were closed in layers in a running fashion. The skin wound was cleansed and dressed. Protamine was given for reversal. A chest x-ray was performed per
protocol given that he had an open chest with retained objects initially. No retained foreign bodies were identified
All instrument, sponge, and needle counts were confirmed to be correct x 2 at the end of the operation. The patient was transferred to the cardiac intensive care unit in critical but stable condition.
I, Dr. Ilan Sullivan, was present, scrubbed for, and performed all critical elements of this procedure.
Ilan Sullivan MD, MS
Cardiothoracic Surgeon
[facility]
This operative dictation was created using the [employer] dictation system. Please excuse any grammatical, typographical, or 'sound alike' errors
[2025-03-08 11:52] LABS: Glucose - Point of Care 160 mg/dl (70-99)
[2025-03-08 11:57] LABS: ALT (SGPT) 649 U/L (0-50); AST (SGOT) 2219 U/L (17-59); LDH 2867 U/L (120-246)
[2025-03-08 12:12] LABS: B.E. 1.1 mmol/L; HCO3 24.7 mmol/L (21-28); O2 Saturation % 99.7 % (94-98); PCO2 34 mmHg (35-48); PO2 115 mmHg (83-108); Potassium 4.6 mMOL/L (3.5-5.1); Sodium 145 mMOL/L (136-145)
[2025-03-08] MEDS: PROTAMINE 25 MG IV (12:14)
[2025-03-08] MEDS: NovoSeven RT (RECOMBINANT) 4 MG IV (13:08)
[2025-03-08 13:09] LABS: ACT-LR - POC 187 Seconds (116-155)
[2025-03-08] MEDS: VANCOCIN 200 IV ×2 (13:41→18:57)
[2025-03-08] MEDS: ANCEF IV (13:42)
[2025-03-08 14:08] LABS: Glucose - Point of Care 116 mg/dl (70-99)
[2025-03-08] MEDS: AQUAMEPHYTON 52.5 MG IV (14:20)
[2025-03-08 14:22] LABS: B.E. 2.2 mmol/L; HCO3 26.4 mmol/L (21-28); O2 Saturation % 100.0 % (94-98); PCO2 38 mmHg (35-48); PO2 125 mmHg (83-108); Potassium 4.6 mMOL/L (3.5-5.1); Sodium 146 mMOL/L (136-145)
[2025-03-08 14:24] LABS: Hematocrit 23.1 % (39.0-52.0); Hemoglobin 7.4 g/dL (13.0-18.0); Mean Corp Hgb Conc. 32.0 g/dL (33.0-37.0); Mean Corpuscular Volume 96.3 fL (80.0-94.0); Platelet Count 106 10^3/uL (130-400); Red Cell Dist. Width 19.2 % (11.5-14.5)
[2025-03-08] MEDS: TYLENOL TUBE ×2 (14:25→22:22)
[2025-03-08] MEDS: PACERONE TUBE ×2 (14:26→22:22)
[2025-03-08 14:42] LABS: APTT 33.9 Sec (23.4-35.0); INR 1.27; PT 16.2 Sec (11.4-14.6)
[2025-03-08 14:43] LABS: Fibrinogen 187 MG/DL (199-459)
[2025-03-08] MEDS: BUMEX 2 MG IV (14:58)
[2025-03-08] MEDS: DILAUDID 0.5 MG IV ×2 (15:10→17:40)
[2025-03-08 15:13] LABS: Albumin 1.9 g/dl (3.5-5.0); Alkaline Phosphatase 95 U/L (38-126); Blood Urea Nitrogen 37 mg/dl (9-20); Calcium 8.6 mg/dl (8.4-10.2); Carbon Dioxide 28 mmol/L (22-30); Chloride 105 mmol/L (98-107); Estimated Creatinine Clearance 49 ml/min; Glucose 116 mg/dl (70-99); Magnesium 2.5 mg/dl (1.6-2.3); Potassium 4.4 mmol/L (3.5-5.1); Sodium 143 mmol/L (135-145); Total Protein 3.8 g/dl (6.3-8.2); eGFR 52.41
[2025-03-08] MEDS: CALCIUM GLUCONATE 100 IV ×2 (15:18→23:32)
[2025-03-08] MEDS: CORDARONE 103 MG IV (15:29)
[2025-03-08] MEDS: CORDARONE 259 MG IV (15:29)
[2025-03-08 15:36] LABS: ALT (SGPT) 477 U/L (0-50); AST (SGOT) 2033 U/L (17-59)
--- NOTE | 2025-03-08 16:00 | RESPNOTE ---
Respiratory: ETT moved to left side of mouth.
--- NOTE | 2025-03-08 16:05 | W.CON.NEPH ---
Consultation
-
Date/Time Consultation Requested: 03/08/2025 4:00 PM
Date/Time Consultation Performed: 03/08/2025 4:00 PM
Requesting Provider: Dr. Sullivan
Performing Provider: Dr. Kent
Reason for Consultation: Acute kidney injury /cardiogenic shock
Medical History
-
Chief Complaint: Acute kidney injury in setting of cardiogenic shock
History of Present Illness:
The patient is a 74-year-old male with a past medical history of CABG x 4 with mitral valve repair tricuspid valve repair maze and EVI exclusion on 02/16/2025. He has a known history of ischemic cardiomyopathy with EF 35 to 40% with persistent
atrial fibrillation on Eliquis. He was admitted on 03/04/2025 with acute on chronic congestive heart failure after he presented to the hospital with increasing edema and dyspnea on exertion. He was initially diuresed with IV Lasix. During his
inpatient course he sustained brief episode of ventricular tachycardia. He underwent SAJAN and on 03/07/2025 was noted for aortic dissection. He underwent stat CTA and then underwent went emergent type a repair with Aortic root replacement. He was
in cardiogenic shock postoperatively and underwent Impella device placement on 03/08/25. Nephrology was consulted for evolving acute kidney injury with creatinine at 1.4 and decreased urine output in the setting of cardiogenic shock.
Past Medical History
Atrial fibrillation
Coronary artery disease status post CABG x 4 mitral valve repair tricuspid valve repair maze and EVI exclusion on 02/16/2025
Hypertension
Dyslipidemia
Hypothyroidism
Social History
Tobacco: Non-Smoker
Alcohol: None
Family History
Family History: Not Pertinent
Allergies / Home Medications
Allergy/AdvReac Type Severity Reaction Status Date / Time
No Known Allergies Allergy Verified 02/10/25 11:39
�Medication �Instructions �Recorded �Confirmed �Type
levothyroxine 150 mcg tablet 150 mcg PO DAILY Thyroid 12/11/23 03/05/25 History
L.acidophilus-B.animalis-B.bifidum 1 cap PO DAILY Supplement 10/22/24 03/05/25 History
25 billion cell-FOS 100 mg capsule
(Probiotic Complex)
apixaban 5 mg tablet (Eliquis) 5 mg PO BID Blood Clot 10/22/24 03/05/25 History
Prevention/Tx
multivitamin 1 tab PO DAILY Supplement 10/22/24 03/05/25 History
atorvastatin 40 mg tablet 40 mg PO QPM #90 tabs 02/04/25 03/05/25 Rx
polyethylene glycol 3350 17 4 g PO DAILY PRN constipation 02/10/25 03/05/25 History
gram/dose oral powder (Miralax)
aspirin 81 mg chewable tablet 81 mg PO DAILY Blood Clot 02/17/25 03/05/25 History
Prevention/Tx
acetaminophen 325 mg tablet 650 mg (2 x 325 mg) PO Q6HPRN PRN 02/22/25 03/05/25 Rx
mild pain,headache,temp >101F #0
tabs
dapagliflozin propanediol 10 mg 10 mg PO DAILY Heart Failure #60 02/22/25 03/05/25 Rx
tablet tabs
valsartan 40 mg tablet 40 mg PO DAILY Heart 02/22/25 03/05/25 Rx
disease/condition #60 tabs
Review of Systems
-
Unable to obtain full review of systems at this time due to: Acuity and Patient Intubation
History Source: Patient
All other systems: Negative unless noted
Physical Exam
Vital Signs
Vital Signs
Temp Pulse Resp BP Pulse Ox
98.4 F 106 0 91/75 98
03/08/25 16:00 03/08/25 16:00 03/08/25 16:00 03/08/25 16:00 03/08/25 16:00
Lab Results
eGFR 52.41 03/08/25 14:06
Zgc-B-Ggtutlpiera Pept 2970 pg/ml 03/04/25 15:44
Physical Exam
General: Intubated sedated
HEENT: ET tube down oropharyngeal airway
Respiratory: Coarse bilaterally with decreased breath sounds at right lung base with mechanical lung excursion on vent
Cardiac: S1/S2 and Regular Rate/Rhythm
Chest exam: Chest tubes and drains noted, sternal surgical site closed
Neck: Right [place]-Fabio catheter noted, left Impella device
Breast: Deferred by me
Abdomen: Soft, Nontender, Nondistended, decreased bowel sound and No Hepatosplenomegaly
Rectal: Deferred by Provider
Genito-urinary: Buenrostro catheter noted
Extremities: No Clubbing, No Cyanosis and trace edema
Skin: No Rash or open lesions
Neuro: Unable to obtain due to sedated and intubated status
Vascular: plus 1 pedal and radial pulses
Data Reviewed
-
Radiology: Image Personally Visualized and interpreted (Chest x-ray personally reviewed notable right lung haziness likely due to evolving a few)
Labs: Labs Reviewed by me (BMP CBC reviewed, urinalysis from 03/07/2025 reviewed albumin 2+ glucose 3+1+ blood)
Old Records: Reviewed (Old labs reviewed from date 02/11/2025 creatinine 0.7.)
Assessment/Plan
-
Impression:
Acute type A Aortic dissection with involvement of bilateral coronary ostia and circumferentially around the root with operative repair on 03/08/25
Acute kidney injury
Postoperative cardiogenic shock now on inotropic support
History of CABG x 4 mitral valve repair tricuspid valve repair maze and EVI exclusion on 02/16/2025
Status post Impella placement on 03/08/2025
Lactic acidosis 12.4
Vent dependent respiratory failure
NSVT
Ischemic cardiomyopathy with EF of 45 to 50%
Atrial fibrillation
History of hypertension
Plan:
- We will initiate CRRT as patient now on 3 pressors, ionotropic support (dobutamine), and cardiogenic shock with Impella device placement ,requiring multiple blood product infusions and with evolving lactic acidosis
- pH by current blood gas is still stable at 7.45
- Given his hemodynamic instability, multiple pressor requirement, and obligate volume intake I believe CRRT would be the best modality as we anticipate his renal failure may aggressively decline overnight
- Okay to continue Bumex drip at this time
-FiO2 on vent currently at 60%, PAD ~ 25 per [place] catheter
- We will be conservative with volume removal on CRRT and started 50 cc/h
- If he becomes hemodynamically unstable the UF rate will be adjusted to even
-Case discussed with CT service, dialysis catheter to be placed by CT physician human resource assistant
-Patient is critically ill with advancing kidney failure in the setting of cardiogenic shock
-
Total Time Spent with Patient (in minutes): 45 minutes total critical care time spent with patient
[2025-03-08 16:10] LABS: Glucose - Point of Care 121 mg/dl (70-99)
[2025-03-08] MEDS: BUMEX 100 IV (16:16)
[2025-03-08] MEDS: DIAMOX 2.5 MG IV (16:17)
--- NOTE | 2025-03-08 16:29 | W.PN.CD ---
Addendum entered and electronically signed by Ramos Reynolds MD 03/08/25 16:58:
now on CRRT
Original Note:
Today's Communication / Plan
-
Monitor lactic acidosis
s/p Impella insertion
wean vasoactive meds as able
Impression / Plan
-
74 yo male with PMH of CABG x 4, MV repair, TV repair, MAZE, and EVI exclusion, Dr. Sullivan 02/16/25; ICM EF 35-40%, chronic HFrEF, persistent A fib on eliquis, HTN is admitted with acute on chronic HFrEF, subsequently found to have severe AR due to
aortic dissection.
# Aortic dissection, Moses type A w/ involvement of b/l Coronary ostia and circumferentially around the root causing severe AI
Complicated by shock
-s/p 27 mm valved conduit and ligation of L and R coronary ostia as they were dissected; bypass grafting to an acute marginal and relocation of previous vein grafts onto acute marginal vein graft
- now s/p Impella insertion
- weaning vasoactive medications with improving lactate
# Acute on chronic HFrEF
-monitor urine output likely need lasix at some point
# NSVT: 25 beats
-monitor
-EP eval this admission
# ICM EF 25% previously 45-50%
-GDMT when able
# CABG x 4, MV repair, TV repair, MAZE, and EVI exclusion, Dr. Sullivan 02/16/25
-echo 03/04: EF 35-40%, MV repair (mean 5, trace MR), mod/severe AR, nl RV, TV repair (mean 2, mild TR), PASP 38
- as above
# A fib, seems persistent
-cont Toprol XL
-resume Eliquis once safe from a surgical standpoint
# CAD/CABG
-ASA, statin when able
# HTN
- hypotensive currently requiring Epi and Impella support
Subjective: S/p Impella insertion this AM with improvement in lactate and decreased inotropic support
Physical Exam
Vital Signs/Labs
Vital Signs
Temp Pulse Resp BP Pulse Ox
98.5 F 113 0 91/75 100
03/08/25 16:00 03/08/25 16:15 03/08/25 16:15 03/08/25 16:00 03/08/25 16:15
03/07/25 03/08/25 03/09/25
06:59 06:59 06:59
Actual Weight 190 lb 0.615 oz 200 lb 13.458 oz
PT 16.2 Sec (11.4-14.6) H 03/08/25 14:06
INR 1.27 03/08/25 14:06
APTT 33.9 Sec (23.4-35.0) 03/08/25 14:06
Magnesium 2.5 mg/dl (1.6-2.3) H 03/08/25 14:06
Triglycerides 64 mg/dl (10-149) 03/07/25 20:42
03/04/25
15:44
Dxh-V-Rwtgrlrzvpg Pept 2970
Physical Exam
Constitutional: Other (intubated)
EENT: Anicteric
Cardiovascular: Rhythm & rate is regular
Respiratory: Other (ventilated coarse b/s)
GI: Soft
Neuro/Psych: Other (intubated )
Data Reviewed
-
Date of Service: March 08, 2025
Medical Decision Making: Reviewed Test Results
EKG: Tracing Personally Visualized and interpreted
Labs: Labs Reviewed by me
[2025-03-08] MEDS: FERRLECIT IV (16:38)
[2025-03-08 16:58] LABS: B.E. 0.8 mmol/L; HCO3 25.3 mmol/L (21-28); O2 Saturation % 99.8 % (94-98); PCO2 39 mmHg (35-48); PO2 168 mmHg (83-108); Potassium 4.7 mMOL/L (3.5-5.1); Sodium 145 mMOL/L (136-145)
[2025-03-08 17:08] LABS: INR 1.41; PT 17.5 Sec (11.4-14.6)
[2025-03-08 17:09] LABS: APTT 36.3 Sec (23.4-35.0); Fibrinogen 252 MG/DL (199-459)
[2025-03-08 17:21] LABS: Albumin 1.9 g/dl (3.5-5.0); Alkaline Phosphatase 84 U/L (38-126); Blood Urea Nitrogen 35 mg/dl (9-20); Calcium 8.6 mg/dl (8.4-10.2); Carbon Dioxide 28 mmol/L (22-30); Chloride 106 mmol/L (98-107); Estimated Creatinine Clearance 40 ml/min; Glucose 109 mg/dl (70-99); Magnesium 2.4 mg/dl (1.6-2.3); Potassium 4.6 mmol/L (3.5-5.1); Sodium 146 mmol/L (135-145); Total Protein 3.7 g/dl (6.3-8.2); eGFR 41.52
[2025-03-08] MEDS: CALCIUM CHLORIDE 10% SYRINGE 500 MG IV (17:21)
[2025-03-08 17:26] LABS: Hematocrit 20.8 % (39.0-52.0); Hemoglobin 6.6 g/dL (13.0-18.0); Mean Corp Hgb Conc. 31.7 g/dL (33.0-37.0); Mean Corpuscular Volume 94.5 fL (80.0-94.0); Platelet Count 84 10^3/uL (130-400); Red Cell Dist. Width 18.4 % (11.5-14.5)
[2025-03-08 17:32] LABS: ALT (SGPT) 383 U/L (0-50)
[2025-03-08 17:43] LABS: AST (SGOT) 1715 U/L (17-59)
--- NOTE | 2025-03-08 17:59 | W.PN.UPDATE ---
Update Note
Progress Note Update
Called to bedside to evaluate patient in setting of recent hypotensive episode with loss of pulsatility on Impella. Bedside echo reviewed and demonstrated depressed BiV function without signs of gross underfilling and no tamponade. Impella was noted
to be mildly aortic with about 3 cm depth below the valve plane. Impella was advanced under TTE guidance and positioned ~5cm below the valve plane with tip oriented towards the LV apex. There was noted improvement in pulsatility, though this occured
prior to Impella re-positioning. Impella re-secured with stat locks. Changes communicated in real time with Dr. Sullivan, Dr. Moore.
Critical care time 35 minutes.
[2025-03-08] MEDS: SUBLIMAZE 50 MCG IV (18:24)
[2025-03-08] MEDS: VANCOCIN IV (18:57)
[2025-03-08] MEDS: SUBLIMAZE 100 IV (19:01)
[2025-03-08 19:23] LABS: B.E. - POC -2.8 mmol/L; Blood Urea Nitrogen - POC 31 mg/dl (3-120); Chloride - POC 108 mmol/L (96-111); Creatinine - POC 1.77 mg/dl (0.3-1.0); Glucose - POC 103 mg/dl (70-99); HCO3 - POC 22 mmol/L (21-28); Hematocrit - POC 25 % PCV (42-52); Hemodilution- POC Yes; Hemoglobin Calculated - POC 8.5; Ionized Calcium - POC 1.26 mmol/L (1.15-1.33); Lactate - POC 11.85 mmol/L (0.36-0.75); O2 Saturation %Calculated-POC 99.8 % (94-98); PCO2 - POC 38 mmHg (35-48); PO2 - POC 216 mmHg (83-108); Potassium - POC 3.8 mmol/L (3.5-5.1); Sodium - POC 151 mmol/L (136-145); Specimen Type - POC Arterial; pH - POC 7.37 (7.35-7.45)
--- NOTE | 2025-03-08 19:30 | PTCARENOTE ---
pt bleeding/clotty in meds CTs. total products throughout day: PRBCs- 9, FFP- 4, Plts- 4, Cryo- 2. 25mg protamine. 4mg vit K. pt became hypotensive around 1630. w/o response to increasing pressors. Likely cardiac tamponade- open chest code at w/ Dr
Sullivan at bedside at 1800. large clots removed from around vein grafts. chest left open. new CTs placed. pt lined for CRRT.
--- NOTE | 2025-03-08 19:54 | W.PN.CT.SURG ---
CT Surgery Operative Note
-
Pre-op Diagnosis: Cardiac tamponade
Post-op Diagnosis: Same , with cardiovascular collapse
Date: 03/08/25
Procedure: Emergency bedside reopening of chest and the loculation of clot ligation of IAN which was the bleeding source, repacking with 1 vaginal pack and Kerlix and replacement of new chest tubes
Primary Surgeon: Ilan Sullivan MD
Assisting Surgeons: Tere Sands NP, Rebeca Townsend PA-C, Nory Carpenter MD, MPH
Anesthesia: KRISHNA Pathak and Sam Espinal MD
Specimen: None
Cultures: None
Complications / Blood Loss: 1L
Findings: Upon my arrival, he had no pulsatility as a line or his Impella. There is high suspicion for my standpoint for cardiac tamponade. He started to become extremely hypotensive requiring increasing vasoactive support. At this time
elected to open and bedside emergently. His previous incision was opened up using a 10 blade. Sternal wires were then cut and removed sequentially. A retractor was placed in the chest and there was a significant amount of clot in the right chest
that was almost pressurized. This is also a significant blood clot that was around his vein graft that is essentially providing him essential flow to his entire coronary circulatory system. These clots were then gently removed and any gross clots
were removed from his right hemithorax. Of note, we did prepped him with Betadine but also used vancomycin infused solution to irrigate his chest for stability purposes. We also irrigated with Betadine. Vancomycin was also given mid procedure via
infusion. We then thoroughly packed and reassessed regionally and found that the bleeding source was from the IAN bed. There was clearly arterial blood dripping down here and so the right hemithorax was elevated and the IAN was isolated and
clipped x 4. There was also bleeding from a wire site along the mid sternum and this was doubly ligated with large 0 Vicryl sutures. Surgicel Nu-Knit was then placed along the sternum. Tractor was then replaced inside the chest, all chest tubes
were removed and stripped. 1 single vaginal packing was loosely placed inside the chest being careful not to kink or distort his vein graft and loose Kerlix was then placed over top. Surgical towel was then placed over top of this and Ioban used
to seal off the chest. Immediately after removal of the blood clots in his chest, he regained pulsatility and hemodynamic stability.
Thank you for involving me in the care of this patient. Please feel free to contact me with any questions or concerns.
Ilan Sullivan MD, MS
Cardiothoracic Surgeon
[facility]
This dictation was created using the [email or web address] dictation system. Please excuse any grammatical, typographical, or 'sound alike' errors.
[2025-03-08 20:23] LABS: B.E. 0.8 mmol/L; HCO3 25.3 mmol/L (21-28); O2 Saturation % 99.4 % (94-98); PCO2 39 mmHg (35-48); PO2 288 mmHg (83-108); Potassium 4.0 mMOL/L (3.5-5.1); Sodium 146 mMOL/L (136-145)
[2025-03-08 20:30] LABS: Glucose - Point of Care 107 mg/dl (70-99)
[2025-03-08 20:33] LABS: Hematocrit 22.5 % (39.0-52.0); Hemoglobin 7.4 g/dL (13.0-18.0); Mean Corp Hgb Conc. 32.9 g/dL (33.0-37.0); Mean Corpuscular Volume 91.8 fL (80.0-94.0); Platelet Count 50 10^3/uL (130-400); Red Cell Dist. Width 16.3 % (11.5-14.5)
[2025-03-08 20:35] LABS: INR 2.47; PT 26.8 Sec (11.4-14.6)
[2025-03-08 20:36] LABS: APTT 47.4 Sec (23.4-35.0)
[2025-03-08] MEDS: ANCEF 10 IV (20:36)
[2025-03-08 20:40] LABS: Fibrinogen 139 MG/DL (199-459)
[2025-03-08 20:51] LABS: Albumin 1.2 g/dl (3.5-5.0); Alkaline Phosphatase 55 U/L (38-126); Blood Urea Nitrogen 28 mg/dl (9-20); Calcium 7.3 mg/dl (8.4-10.2); Carbon Dioxide 25 mmol/L (22-30); Chloride 116 mmol/L (98-107); Estimated Creatinine Clearance 52 ml/min; Glucose 102 mg/dl (70-99); Magnesium 1.8 mg/dl (1.6-2.3); Potassium 3.1 mmol/L (3.5-5.1); Sodium 146 mmol/L (135-145); Total Protein 2.6 g/dl (6.3-8.2); eGFR 57.29
[2025-03-08 20:58] LABS: ALT (SGPT) 272 U/L (0-50); AST (SGOT) 1019 U/L (17-59)
[2025-03-08] MEDS: BACTROBAN 2% OINTMENT 1 APPLIC NASAL (21:23)
[2025-03-08] MEDS: SENOKOT TUBE (21:33)
[2025-03-08 21:41] LABS: Glucose - Point of Care 131 mg/dl (70-99)
--- NOTE | 2025-03-08 22:00 | PTCARENOTE ---
Assumed care of pt from previous RN. CVOR team at bedside; open chest code in progress. Report received at bedside. Pt intubated and sedated. Prop/fent infusing as ordered. Pt sinus tach/a-fib on tele. A/V wires in place, unplugged. Doppler pulses
throughout. +1 b/l LE edema, trace b/l UE edema. Impella 5.5 at P4, see worklist for full settings. ETT #8, 24 cm in the center. 60% FiO2. POX 98-100%. See worklist for full vent settings. Lung sounds present b/l. Mediastinal CTx2 to -10 suction, +1
airleak and tidaling present. R / L pleural CT's to separate chambers both to -10 suction, and no airleaks noted at this time. Output for CT's as documented. Abdomen soft. Absent BS. Buenrostro catheter intact and draining yellow urine as documented.
CRRT intimated ~2105. Open chest dressed by CVOR. All lines leveled, zeroed, and flushed. Labs sent as ordered. Blood products given as documented (1 PRBC, 1 FFP, 1 platelet). Glycemic protocol followed. Epi, levo, vaso, fent, prop, dobut, infusing
as ordered. See worklist for full nursing assessment and interventions.
[2025-03-08] MEDS: MAGNESIUM SULFATE 102 GRAMS IV (22:21)
[2025-03-08 22:45] LABS: Glucose - Point of Care 130 mg/dl (70-99)
[2025-03-08 22:56] LABS: B.E. 1.7 mmol/L; HCO3 25.7 mmol/L (21-28); O2 Saturation % 99.5 % (94-98); PCO2 37 mmHg (35-48); PO2 145 mmHg (83-108); Potassium 3.7 mMOL/L (3.5-5.1); Sodium 145 mMOL/L (136-145)
[2025-03-08 23:02] LABS: Hematocrit 28.0 % (39.0-52.0); Hemoglobin 9.4 g/dL (13.0-18.0)
[2025-03-08] MEDS: DIPRIVAN 100 IV (23:09)
[2025-03-08] MEDS: KCL 100 IV (23:12)
[2025-03-08 23:17] LABS: Potassium 3.8 mmol/L (3.5-5.1)
[2025-03-08 23:43] LABS: Glucose - Point of Care 113 mg/dl (70-99)
[2025-03-09] VITALS (18 sets, daily range): BP systolic 71–144; BP diastolic 59–80; BMI 30.4
--- NOTE | 2025-03-09 00:15 | W.PN.CT ---
Today's Communication / Plan
-
-pod #2
-CI 1.59, CO 3.27, mVO2 53.7. Drips: Epi 4.5, Dobut 5, Vaso 0.04, Levo 17, Fentanyl 125, Propofol 25, Insulin
-remains intubated, sedated with open chest
-all CTs @ -10 suction. Outputs: 2 meds 495/1725, R pleur 125/125, L pleur 25/25 in 12/24 hrs
-CRRT started last night 03/08. Tolerated small amount of UF, 50cc/hr
-coagulopathy/hypotension - overnight, got 2 pRBCs, 1 FFP, 2 platelets, 250 Albumin x2
-25% Albumin x3 started 03/08
-ABG with metabolic alkalosis this am, decreased RR from 22 to 18 to allow respiratory compensation. Follow ABG
-in a-fib 120s overnight- attempted CV x2 today - unsuccessful, remains in rapid a-fib
-lactic acidosis - trending down. LA 6.2 today
-elevated LFTs- improving
-follow INR 2.21 today, PTT 41.6
-plans for chest washout today by Dr. Jacobs
Assessment / Plan
-
Assessment:
-S/p Emergent Redo sternotomy with extensive adhesiolysis (Modifier 22 for additional dissection time of 1 hour)/Hemiarch ascending aortic replacement/ Aortic root replacement using a 27 mm valved conduit/Ligation of left and right coronary ostia as
they were dissected coronary bypass grafting to an acute marginal/Relocation of previous vein grafts onto this acute marginal vein graft/Temporary chest packing, open chest, by Dr. Sullivan, 03/07/25, pod#2
-S/p placement of a 5.5 direct aortic Impella LVAD on 03/08/[address] Sullivan
-Cardic tamponade/ Cardiovascular collapse- s/p Emergency bedside reopening of chest and the evacuation of clot; ligation of IAN, which was the bleeding source; repacking with 1 vaginal pack and Kerlix; replacement of new chest tubes by Dr. Sullivan on
03/08/25
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
-Worsening of aortic valve insufficiency to severe secondary to dissection
-Acute on chronic congestive heart failure with volume overload secondary to new aortic valve insufficiency
-Hypertension
-Hyperlipidemia
-Hypothyroidism
-AFIB on Eliquis
-Ischemic CM
-Recent cardiac surgery over 20 days ago
-Mitral valve insufficiency status post repair
-Tricuspid insufficiency status post repair
-Coronary artery disease status post CABG
-S/P CABG x 4, MV repair, TV repair, MAZE, and EVI exclusion, Dr. Sullivan 02/16/25, Readmitted for SOB on 03/04
-Acute intraop/postop blood loss/Anemia (transfused 2u PRBC's)
-Acute intraop and postop coagulopathy (Administered 10mg Factor VII); chest packed and kept opened
-Acute postop Pulmonary insufficiency
-Acute postop Metabolic Acidosis, followed by metabolic alkalosis
-Acute postop Lactic acidosis
-IRON
-Cardiac tamponade 03/08/25
Discussed patient care with: Nursing and Care Team
Subjective
Procedure
Admitted for increased Shortness of Breath
-
Date of Service: March 09, 2025
Objective Data
-
PT 26.8 Sec (11.4-14.6) H 03/08/25 20:13
INR 2.47 03/08/25 20:13
APTT 47.4 Sec (23.4-35.0) H 03/08/25 20:13
Vital Signs
Vital Signs
Temp Pulse Resp BP Pulse Ox
94.8 F L 120 24 98/70 100
03/09/25 00:00 03/09/25 00:00 03/09/25 00:00 03/09/25 00:00 03/09/25 00:00
CT Intake/Output/Weight
03/08/25 03/08/25 03/09/25
06:59 18:59 06:59
Intake Total 3047.2 / 3170.8 4066.2 / 6104.6 2038.4 / 6104.6
Output Total 695 / 750 1735 / 2888 1153 / 2888
Balance 2352.2 / 2420.8 2331.2 / 3216.6 885.4 / 3216.6
SaO2: 99
Physical Exam
-
General: Other (sedated, intubated)
Cardiovascular: Irregular rate & rhythm and No Murmurs
Respiratory: Decreased Breath Sounds
Sternum: Stable (open chest)
Incision: Dressing Intact
Extremities: Edema +1
Abdomen: soft, nontender, nondistended, decreased bowel sounds
Data Reviewed
-
Lab Results: Results Reviewed
Medications: Active Meds Reviewed
Chest X-Ray: Report Reviewed and Image Reviewed
ECG: Report Reviewed and Image Reviewed
[2025-03-09 00:27] LABS: Glucose - Point of Care 118 mg/dl (70-99)
[2025-03-09 00:33] LABS: B.E. 3.0 mmol/L; HCO3 27.0 mmol/L (21-28); O2 Saturation % 99.3 % (94-98); PCO2 38 mmHg (35-48); PO2 107 mmHg (83-108); Potassium 4.7 mMOL/L (3.5-5.1); Sodium 144 mMOL/L (136-145)
[2025-03-09] MEDS: NITRO-BID 1 INCH TOPICAL ×3 (00:40→17:46)
[2025-03-09 00:41] LABS: Hematocrit 26.4 % (39.0-52.0); Hemoglobin 9.0 g/dL (13.0-18.0); Mean Corp Hgb Conc. 34.1 g/dL (33.0-37.0); Mean Corpuscular Volume 88.0 fL (80.0-94.0); Platelet Count 72 10^3/uL (130-400); Red Cell Dist. Width 16.6 % (11.5-14.5)
[2025-03-09] MEDS: ALBUMIN 5% 250 IV ×2 (00:43→07:57)
[2025-03-09 00:44] LABS: INR 1.92; PT 22.1 Sec (11.4-14.6)
[2025-03-09 00:45] LABS: APTT 40.9 Sec (23.4-35.0); Fibrinogen 203 MG/DL (199-459)
[2025-03-09 00:46] LABS: Magnesium 2.2 mg/dl (1.6-2.3)
[2025-03-09] MEDS: SUBLIMAZE 100 IV ×2 (00:47→12:25)
[2025-03-09 02:19] LABS: Albumin 1.9 g/dl (3.5-5.0); Alkaline Phosphatase 83 U/L (38-126); Blood Urea Nitrogen 33 mg/dl (9-20); Calcium 9.6 mg/dl (8.4-10.2); Carbon Dioxide 30 mmol/L (22-30); Chloride 110 mmol/L (98-107); Estimated Creatinine Clearance 45 ml/min; Glucose 109 mg/dl (70-99); Magnesium 2.4 mg/dl (1.6-2.3); Potassium 4.4 mmol/L (3.5-5.1); Sodium 143 mmol/L (135-145); Total Protein 3.7 g/dl (6.3-8.2); eGFR 48.25
[2025-03-09 02:30] LABS: ALT (SGPT) 397 U/L (0-50); AST (SGOT) 1283 U/L (17-59)
[2025-03-09] MEDS: ANCEF 5 IV ×3 (02:31→17:38)
[2025-03-09] MEDS: NOVOLIN R INSULIN INFUSION 100 IV (02:37)
[2025-03-09 03:13] LABS: Glucose - Point of Care 109 mg/dl (70-99)
--- NOTE | 2025-03-09 03:22 | PTCARENOTE ---
no acute changes in assessment. pt remains intubated via ETT, vent settings unchanged. POX 99%. Propofol infusing @ 25mcg. Fentanyl infusing @ 125mcg. CT PA aware of CT output and UO. AFIB on monitor, HR 120s. Impella remains in place @ P4. MAPs
60s. PAPs 20s/10s. CVP ~ 11. last CI 1.59. Levo gtt @ 12mcg. Vaso gtt @ 0.04mcg. Dobut gtt @ 5mcg. Epi gtt @ 5mcg. CRRT maintained w ultrafiltration rate @ 50cc. Insulin gtt maintained per glycemic protocol. all surgical sites stable. chest remains
open.
[2025-03-09 03:46] LABS: Glucose - Point of Care 104 mg/dl (70-99)
[2025-03-09] MEDS: SODIUM BICARBONATE IV (03:48)
--- NOTE | 2025-03-09 03:49 | DOWNTIME ---
There was a [employer]ing [employer] Downtime on 03/09/2025 from 0100 to 03/09/2025 at 0215. Downtime documentation of patient's care, including medication administrations, has been reconciled in the electronic record per guidelines. Refer to the
patient's paper chart under the miscellaneous tab to see printed paper medication records and downtime forms.
[2025-03-09 03:55] LABS: B.E. 3.0 mmol/L; HCO3 27.0 mmol/L (21-28); O2 Saturation % 99.3 % (94-98); PCO2 38 mmHg (35-48); PO2 124 mmHg (83-108); Potassium 4.5 mMOL/L (3.5-5.1); Sodium 144 mMOL/L (136-145)
[2025-03-09 04:06] LABS: INR 2.21; PT 24.6 Sec (11.4-14.6)
[2025-03-09 04:07] LABS: APTT 41.6 Sec (23.4-35.0); Fibrinogen 173 MG/DL (199-459)
[2025-03-09 04:10] LABS: D-Dimer 2.29 ug/mlFEU (0.00-0.50)
[2025-03-09 04:12] LABS: Hematocrit 22.6 % (39.0-52.0); Hemoglobin 7.9 g/dL (13.0-18.0); Mean Corp Hgb Conc. 35.0 g/dL (33.0-37.0); Mean Corpuscular Volume 84.3 fL (80.0-94.0); Platelet Count 83 10^3/uL (130-400); Red Cell Dist. Width 16.5 % (11.5-14.5)
[2025-03-09 04:22] LABS: Albumin 2.0 g/dl (3.5-5.0); Alkaline Phosphatase 79 U/L (38-126); Blood Urea Nitrogen 32 mg/dl (9-20); Calcium 8.7 mg/dl (8.4-10.2); Carbon Dioxide 30 mmol/L (22-30); Chloride 109 mmol/L (98-107); Estimated Creatinine Clearance 49 ml/min; Glucose 95 mg/dl (70-99); Magnesium 2.2 mg/dl (1.6-2.3); Potassium 4.3 mmol/L (3.5-5.1); Sodium 141 mmol/L (135-145); Total Protein 3.8 g/dl (6.3-8.2); eGFR 52.41
[2025-03-09 04:35] LABS: ALT (SGPT) 357 U/L (0-50); AST (SGOT) 1113 U/L (17-59); LDH 1317 U/L (120-246)
[2025-03-09] MEDS: DIPRIVAN 100 IV ×3 (04:35→21:53)
[2025-03-09 05:46] LABS: Glucose - Point of Care 103 mg/dl (70-99)
[2025-03-09 05:58] LABS: B.E. 5.4 mmol/L; HCO3 28.9 mmol/L (21-28); O2 Saturation % 99.7 % (94-98); PCO2 37 mmHg (35-48); PO2 121 mmHg (83-108); Potassium 4.6 mMOL/L (3.5-5.1); Sodium 142 mMOL/L (136-145)
[2025-03-09] MEDS: SYNTHROID TUBE ×2 (05:59→23:32)
[2025-03-09] MEDS: TYLENOL TUBE ×2 (05:59→13:25)
[2025-03-09] MEDS: NITRO-BID TOPICAL ×2 (05:59→23:10)
[2025-03-09 06:00] LABS: Hematocrit 24.8 % (39.0-52.0); Hemoglobin 8.5 g/dL (13.0-18.0); Mean Corp Hgb Conc. 34.3 g/dL (33.0-37.0); Mean Corpuscular Volume 87.6 fL (80.0-94.0); Platelet Count 75 10^3/uL (130-400); Red Cell Dist. Width 16.5 % (11.5-14.5)
[2025-03-09] MEDS: LEVOPHED 258 MG IV ×2 (06:15→14:35)
--- NOTE | 2025-03-09 06:45 | PTCARENOTE ---
Dr. Sullivan at bedside. attempted cardioversion x2 - unsuccessful. pt remains in AFIB, HR 120s.
[2025-03-09] MEDS: FLEXBUMIN 50 IV ×3 (06:50→21:53)
[2025-03-09] MEDS: PITRESSIN 100 IV (07:30)
--- NOTE | 2025-03-09 07:30 | PTCARENOTE ---
Patient received from previous shift laying in bed, intubated and sedated, open chest from CVOR. Afib noted via cm, SaO2 @ 99% on ventilator, FiO2 40%. RIJ Cordis w/Payne-Fabio catheter, L radial arterial line, R radial arterial line, R femoral
arterial lines present - leveled, flushed, and calibrated w/good waveforms returned. Impella 5.5 via L neck set to P4. CRRT therapy in use via L femoral access. Epicardial A+V pacing wires to pulse generator, disconnected but next to if needed.
Mediastinal chest tubes x 2, Y-connected to one pleurevac, to -10cm suction w/+1 air leak noted. L and R pleural chest tubes to individual pleurevacs, also to -10cm suction w/no air leaks or crepitus appreciated. Buenrostro catheter to gravity. All
procedural sites stable. Dr. Sullivan and team to bedside to discuss plan of care for the day - patient will return to CVOR this am. See work list for full assessment, interventions performed, and intravenous infusions and titrations.
[2025-03-09 07:33] LABS: B.E. 4.9 mmol/L; HCO3 29.2 mmol/L (21-28); O2 Saturation % 98.9 % (94-98); PCO2 41 mmHg (35-48); PO2 123 mmHg (83-108)
--- NOTE | 2025-03-09 07:35 | W.PN.CD ---
Today's Communication / Plan
-
Peripheral smear to evaluate for schistocytes/hemolysis.
Transfuse to support.
Wean pressors/inotropes as tolerated. Goal MAP > 65 mmHg, CI > 1.8 L/min/m2.
Surgical site management per CTS.
Ideally, we need to get the Impella out as I am concerned for hemolysis, implying pump thrombosis.
Patient is back in OR for exploration after another PEA arrest relieved with re-opening the chest.
Patient is critically ill.
Impression / Plan
-
Impression/Plan: 74 yo male with PMH of ICM EF 35-40%, chronic HFrEF, persistent A fib on eliquis, HTN, CAD s/p CABG x 4, MV repair, TV repair, MAZE, and EVI exclusion with Dr. Sullivan (02/16/25); admitted on 03/04/2025 with acute on chronic HFrEF,
subsequently found to have severe AR due to [place] type A aortic dissection.
#Aortic dissection
-Acute, [place] type A w/ involvement of b/l Coronary ostia and circumferentially around the root causing severe AI, distally to the Aorto-iliac bifurcation complicated by shock.
-s/p #27 valved conduit and hemiarch replacement, ligation of L and R coronary ostia as they were dissected; bypass grafting to an acute marginal and relocation of previous vein grafts onto acute marginal vein graft.
-The patient was neurologically intact on POD #1 with high pressor/inotrope requirements. The opportunity was taken to place MCS; now s/p Impella 5.5 insertion.
-CRRT started yesterday.
-Loss of Impella pulsatility lead to TTE guided repositioning. Patient was re-opened at the bedside, revealing clot around the right ventricle and SVG that appeared to compress both. The clot was evacuated.
-Arterial bleeding was observed from the IAN bed, which was clipped and a sternal wire site which was double ligated with good hemostasis.
-CI dwindled overnight, improved to 2.06. DIVER'S TENDER = 0.84 Wilkes. Delphine = 0.8.
-The patient has had several episodes of hypotension, though to be due to compression of the SVG. The patient was taken to OR for placement of a ringed graft to prevent compression. This may not prevent kinking.
-Patient is now back in the OR after another arrest, relieved with opening of the chest.
#HFrEF/ICMO
-Acute on chronic in the setting of Type A dissection with moderate/severe AI.
-Weight up 10 kg from baseline.
-Bumetanide gtt started.
-Volume managed by CRRT.
-No role for GDMT at this time.
#Heme
-Anemia (s/p 14 units PRBC's to date).
-Acute, post operative but constellation concerning for hemolysis, possibly indicative of pump thrombosis.
-Check peripheral smear for schistocytes.
-Transfusions as indicated.
-Thrombocytopenia (s/p 6 units of platelets to date).
-Acute (75 <-- 83 <-- 72 <-- 50 <-- 84 <-- 106 <-- 131 <-- 205).
-Clearly consumptive, again concerning for hemolysis/pump thrombosis, consider DIC in the context of rising INR.
-Coagulopathy (s/p 3 units FFP, 2 units of Cryoprecipitate).
-Acute (2.21 <-- 1.92 <-- 2.47 <-- 1.41).
-Notable in the context of ALI but also concerning for consumptive coagulopathy.
-FFP/Cryo to maintain stable INR. This is counter acted by need for heparin for Impella, which may be exacerbating the situation.
#CAD
-Chronic, stable.
-S/P CABG x 4 (MAGANA to LAD, SVG to OM1 to LPL, SVG to Diag).
-During operation for Ao dissection, the SVG graft was anastomosed to the SVG to diagonal graft and the LMCA/RCA were ligated to prevent further propagation of the dissection plane.
-The current anatomy is MAGANA to LAD, SVG to diagnoal, sequential SVG Y-graft from diagonal graft to OM1 to LPL.
-All antiplatelet therapy on hold due to thrombocytopenia/coagulopathy.
#Mitral regurgitation
-Chronic, stable
-S/P MV repair (closure of cleft between P2 and P3, free edge remodeling between P3 and commissure, placement of single [place]-Gaston suture from anterolateral papillary muscle head to P2 and P3, #32 Taylor Physio Flex band annuloplasty, SN [id number])
with Dr. Sullivan, 02/16/2025.
#Tricuspid regurgitation
-Chronic, stable.
-S/P TV repair (Simple tricuspid valve repair with #34 Medtronic Triad band annuloplasty, SN [id number]) with Dr. Sullivan, 02/16/2025.
#Atrial fibrillation
-Persistent, currently in AF.
-Rate/rhythm control with amiodarone, s/p MAZE with Dr. Sullivan, 02/16/2025.
-CHADS2-Vasc = 5 (CHF, HTN, Age x2, vascular disease).
-Anti-thrombotic therapy titrated based on coagulopathy, S/P LAAE (#40 AtriClip, SN [id number]) with Dr. Sullivan, 02/16/2025.
#IRON
-Severe, requiring CRRT.
-Management per nephrology.
#ALI
-Severe, multifactorial.
-Component of shock liver, likely a component of hemolysis.
-Avoid hepatotoxic agents.
Critical Care Time = 80 minutes.
Subjective/Interval History:
Very busy 24 hours.
Impella 5.5 placed yesterday with improvement of hemodynamics and decrease in pressors/inotropes.
Sudden hemodynamic falloff, coupled with loss of Impella pulsatility lead to TTE guided repositioning of the Impella, subsequent bedside re-exploration and clot evacuation with hemostasis of the IAN bed, sternal wire bleeding.
Worsening lactic acidosis with decreasing UOP in the setting of dissection prompted initiation of CRRT.
The patient lapsed into atrial fibrillation with unsuccessful DCCV x2. HR remains 110-120.
Weight is up 10 kg from baseline/admission.
Platelets falling, now 75K.
Fibrinogen = 173 (low). D-Dimer = 2.29 (high). INR 2.21.
ABG = 7.46/41/123/98.9 (FiO2 40%).
Lactate hovered around 12 yesterday, now down to 5.1.
LDH 1317.
AST 1113 (down from 2219), ALT 357 (down from 649) - shock liver +/- hemolysis (AST >> ALT, elevated LDH).
Several procedures today including opening and placement of a ringed conduit to prevent compression of the SVG.
Patient had another arrest, relieved with reopening the chest.
Patient has returned to the OR for re-exploration.
DATA:
TTE, 03/04/2025:
SUMMARY
1. Moderately reduced LV systolic function. Ejection fraction is 35-40%. Global hypokinesis.
2. S/p mitral valve repair with peak/mean gradients of 15/5 mmHg. Trace mitral valve regurgitation.
3. Moderate/severe aortic regurgitation. PHT approx 250 msec.
4. S/p tricuspid valve repair with mean gradient of 2 mmHg. Mild tricuspid regurgitation. Estimated PASP 38 mmHg, assuming RAP 8 mmHg. Mildly elevated PASP.
5. Compared to 02/19/25: LVEF is stable in 35-40% range, mitral valve and tricuspid valve repairs are stable; aortic regurgitation has progressed from mild/moderate to moderate/severe.
SAJAN, 03/07/2025:
SUMMARY
1. There is a Moses type A DeBakey class I aortic dissection present.
2. Trileaflet aortic valve. Severe aortic regurgitation due to prolapse of the left vs non coronary cusp and aortic dissection.
3. Low normal ventricular systolic function. LVEF 45-50%.
4. S/p tricuspid valve repair. Trace residual tricuspid regurgitation.
5. S/p mitral valve repair. Trace residual mitral regurgitation.
6. Dr. Sullivan (CT surgery) notified of findings at time of study.
CT surgery, 03/07/2025:
Procedure(s) Performed:
1. Ultrasound-guided access using Seldinger technique 2 the right common femoral artery and vein with percutaneous access using a 25 [place]atian femoral venous cannula
2. Redo sternotomy with extensive adhesiolysis (Modifier 22 for additional dissection time of 1 hour)
3. Direct aortic cannulation using ultrasound and Seldinger technique with a SAJAN guidance verifying true lumen access
4. Moderate hypothermic circulatory arrest with antegrade cerebral perfusion
5. Hemiarch ascending aortic replacement
6. Aortic root replacement using a 27 mm valved conduit
7. Ligation of left and right coronary ostia as they were dissected coronary bypass grafting to an acute marginal
8. Relocation of previous vein grafts onto this acute marginal vein graft
9. Placement of temporary atrial ventricular pacing wires
10. Transesophageal echocardiography
11. Temporary chest packing, open chest.
Impella Placement, 03/08/2025:
Procedure(s) Performed:
1. The temporary dressing over top of the open chest was removed
2. Placement of atrial pacing wires
3. Anastomosis of a 10 mm straight tube graft off of the ascending aortic graft, graft to graft anastomosis
4. Graft tunneled to the left supra clavicular region between the strap muscles
5. Placement of a 5.5 direct aortic Impella LVAD
6. Chest closure in usual fashion
TTE, 03/08/2025:
SUMMARY
1. TDS.
2. In limited views, left ventricle appears normal sized with severely reduced systolic function. Left ventricle ejection fraction is 25-30% by visual estimation. Global hypokinesis. S/p Impella 5.5 insertion which appears to be appropriately
placed.
3. In limited views right ventricle appears normal sized with mildly reduced systolic function. Right ventricle does appear to expand in diastole.
4. Limited valvular interrogation.
5. Compared to SAJAN earlier in day, overall, no significant change.
Bedside Rexploration, 03/08/2025:
Procedure: Emergency bedside reopening of chest and the loculation of clot ligation of IAN which was the bleeding source, repacking with 1 vaginal pack and Kerlix and replacement of new chest tubes
Physical Exam
Vital Signs/Labs
Vital Signs
Temp Pulse Resp BP Pulse Ox
36.0 C L 115 22 107/73 99
03/09/25 07:00 03/09/25 07:14 03/09/25 07:00 03/09/25 07:00 03/09/25 07:14
03/07/25 03/08/25 03/09/25
11:59 11:59 11:59
Actual Weight 86.2 kg 91.1 kg 98.7 kg
PT 24.6 Sec (11.4-14.6) H 03/09/25 03:41
INR 2.21 03/09/25 03:41
APTT 41.6 Sec (23.4-35.0) H 03/09/25 03:41
Magnesium 2.2 mg/dl (1.6-2.3) 03/09/25 03:41
Triglycerides 64 mg/dl (10-149) 03/07/25 20:42
03/04/25
15:44
Ist-G-Zfdlejvqvdu Pept 2970
Physical Exam
Constitutional: No acute distress and Comfortable
EENT: Anicteric, Moist mucous membranes and Other (ET tube in place.)
Cardiovascular: Rhythm/rate is irregular
Respiratory: Other (Exam deferred due to open chest.)
GI: Other (Exam deferred due to open chest.)
Neuro/Psych: Other (Sedated.)
Data Reviewed
-
Date of Service: March 09, 2025
Medical Decision Making: Reviewed Test Results, Tests Ordered, Independent Historian Assessment, Test Interpretation and Review of Case with other Provider
EKG: Tracing Personally Visualized and interpreted and Report Reviewed by me
Echo: Tracing Personally Visualized and interpreted and Report Reviewed by me
X-Ray/CT/US/MRI/NUC/PET: Image Personally Visualized and interpreted and Report Reviewed by me
Labs: Labs Reviewed by me
Old Records: Reviewed
[2025-03-09] MEDS: FLUSH (NSS) 1 FLUSH IV (08:00)
--- NOTE | 2025-03-09 08:01 | W.PN.ANS.POP ---
Anesthesia Post Operative
- Anesthesia Post Op Note
Vital Signs Stable-See Nursing Note: Yes (remains on Vaso/ Dobut/Epi gtts -- pt to OR for washout this am)
Airway Patent: Yes (remains intubated)
Adequate Pain Control: Yes (remains on fentanyl gtt)
Change in Mental Status: No (remains sedated on propofol gtt)
Current Postoperative Nausea & Vomiting: No
Anesthesia Complications: No
General Anesthetic Recall: No
Unplanned Admission: No
Post Op Hydration Adequate: Yes
[2025-03-09 08:03] LABS: Glucose - Point of Care 86 mg/dl (70-99)
--- NOTE | 2025-03-09 08:05 | PTCARENOTE ---
CRRT blood rinse back performed in anticipation of return to CVOR this am.
--- NOTE | 2025-03-09 08:22 | W.PN.INTV ---
Today's Communication / Plan
Recommendations
Continue mechanical ventilation
CRRT per nephrology
Vasopressors + inotropes
Goal MAP>65 and CI>2
Goal PAD<18
Serial blood gas with goal MVO2>60-65
Pt is critically ill with grave prognosis
[facility] service will continue to follow
Assessment
-
Assessment: 74-year-old male with a past medical history of multivessel CAD s/p CABG, history of severe MR s/p radical mitral valve repair, severe tricuspid valve insufficiency s/p tricuspid valve repair, chronic HFmrEF, hyperlipidemia,
hypertension, paroxysmal A-fib on Eliquis s/p open left atrial maze + left atrial appendage exclusion, hypothyroidism and history of colon adenoma who presents with shortness of breath, poor appetite and ankle swelling. Patient recently had a
cardiothoracic surgery on 02/16 after proceeding left + right heart catheterization on 02/04/2025 showed triple-vessel CAD with mildly elevated biventricular filling pressures. Patient was found to have acute postoperative blood loss anemia,
postoperative coagulopathy and he improved and was able to be discharged home on 02/22/2025. He is now returning with shortness of breath with exertion, lower extremity edema and imaging consistent with acute decompensated heart failure. IV Lasix
started. Echo performed on 03/04/2025 showed reduced EF now at 35-40%, global hypokinesis, with worsening aortic regurgitation from mild/moderate to moderate/severe.He was also started on metoprolol due to NSVT. Given the worsening aortic
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 CT surgery notified and a stat CT
angio chest/abdomen/pelvis was performed confirming an aortic dissection extending throughout the aorta beginning at the root and extending to the aortic bifurcation. There also were small bilateral pleural effusions with other postoperative
changes along the sternum with a possible small hematoma. Patient brought to the OR and underwent a redo sternotomy with extensive adhesiolysis, hemiarch ascending aortic replacement, aortic root replacement, ligation of left and right coronary
ostia as they were dissected, and previous vein grafts were relocated onto the acute marginal vein graft, and his chest was left open. Patient transferred to the CVICU postoperatively, and accounting support specialist services consulted for additional
management/recommendations.
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
(02/16/2025), chronic HFmrEF, hyperlipidemia, hypertension, paroxysmal A-fib s/p open left atrial maze + EVI�exclusion (02/16/2025) on Eliquis, mild aortic valve insufficiency secondary to leaflet prolapse, hypothyroidism, history of colon adenoma
Impression:
#Type A aortic dissection with resultant severe aortic regurgitation s/p redo sternotomy with extensive adhesiolysis, moderate hypothermic circulatory arrest, hemiarch ascending aortic replacement, aortic root replacement, ligation of left and right
coronary ostia as they were dissected followed by relocation of previous vein grafts onto acute marginal vein graft, and chest left open (POD #2)
#Cardiogenic shock now on multiple vasopressors and placement of a 5.5 direct aortic Impella LVAD with subsequent chest closure in usual fashion (POD #1)
#Cardiac tamponade with cardiovascular collapse s/p emergent bedside reopening of chest with ligation of IAN with multiple clot evacuation and repacking with vaginal pack + Kerlix and replacement chest tubes (POD #1)
#Mediastinal reexploration/irrigation and removal packing with repositioning of proximal course of GSV graft with placement of 6 mm ringed PTFE graft around proximal segment of GSV graft with replacement of new mediastinal packing and new open chest
dressing placed (POD#0)
#IRON with proximal right renal artery narrowing with decreased right kidney perfusion (per CTA chest/abdomen/pelvis from 03/07/2025)
#Postoperative coagulopathy
#Lactic acidosis
#Acute HFrEF exacerbation (present on admission)
#Shock liver with hyperbilirubinemia
#Chronic anemia (baseline 9.5-11 g/dL)
#Multivessel CAD s/p CABG x 4, severe mitral valve insufficiency s/p radical mitral valve repair, severe tricuspid valve insufficiency (functional) s/p simple tricuspid valve repair (all on 02/16/2025)
#Paroxysmal A-fib s/p open left atrial maze + EVI�exclusion (02/16/2025) on Eliquis
Plan:
Ventilator settings reviewed
FiO2 will be weaned to maintain SpO2 >90-94%
Minute ventilation will be adjusted
Arterial blood gases will be monitored
Spontaneous breathing trial will be attempted with hopeful extubation after anesthesia/sedation wear off
prn nebulized bronchodilators - not currently bronchospastic
Pulmonary artery catheter parameters will be followed
Pressors/antihypertensive/inotropes/diuretics will be provided as needed
Continue Impella and wean down as tolerated, per CT surgery team + cardiology - -> given concern for pump thrombosis, ideally the Impella should be removed (per Dr. Hogan)
Maintain MAP>65
Replete electrolytes with K>4, Mg>2
Continue trending lactate until <2 mmol/L
Monitor chest tube output (bilateral pleural chest tubes + mediastinal chest tubes x 2)
Monitor hemoglobin
Monitor platelet count and coags
Transfuse blood products as needed to maintain Hb>7g/dL, plt>50k (given post-operative status)
CT surgery managing chest tubes
Monitor blood sugar to maintain euglycemia with goal BG 110-140
Insulin drip per protocol
Nephrology consulted and given his reduction in UOP since 03/08 - plan for CRRT
Aspiration precautions
VAP prevention protocol
DVT prophylaxis: Eliquis currently on hold (last dose morning of 03/07/2025)
Early nutrition when able
Early mobilization
Patient is critically ill with grave prognosis; continue management in CVICU - [facility] service will continue to follow along.
Critical care statement: A total of 54 minutes of critical care time was provided for this patient today. This includes management of ventilator, spontaneous breathing trial, arterial blood gases, pressors, of unstable vital signs, evaluation of the
patient at bedside, reviewing the patient's pertinent medical records including radiographs, microbiology, laboratory evaluations, and discussion with primary team and critical care nursing.
Data:
CTA chest/abdomen/pelvis with/without contrast 03/07/2025:
1.There is an aortic dissection extending throughout the aorta beginning at the root and extending to the aortic bifurcation consistent with Moses type A dissection.The aortic branch arteries appear to be supplied off the true lumen. There is
associated moderate narrowing of the descending thoracic aorta and proximal abdominal aorta. Additionally there is narrowing at the proximal right renal artery with associated asymmetrically decreased perfusion of the right kidney.
2. Small bilateral pleural effusions with adjacent atelectasis.
3. Postoperative changes along the sternum with a possible small hematoma.
CXR 03/09/2025:
Stable position of the endotracheal tube, Charenton-Fabio catheter, Impella device, and bilateral chest tubes.
A sternal retractor again projects over the chest.
No focal consolidation, pleural effusion, or pneumothorax. Sternotomy wires and cardiac valve prostheses. Stable cardiomediastinal silhouette. Chronic degenerative changes of the spine.
Subjective Dataa
Subjective Data
Date of Service:
Date of Service: March 09, 2025
Chief Complaint: [facility] Follow Up
Subjective:
Yesterday patient had sudden hypotension with loss of pulse, with the emergent bedside reopening of chest and bleeding source found to be the IAN which was ligated, and patient was repacked with new chest tubes placed. Today, patient went to OR
this AM for mediastinal exploration. Currently remains intubated, saturating 96%. Heart rate 101, BP via A-line: 70/54, PAP 26/15 and right femoral A-line: 65/50.
Review of Systems
General: Unobtainable - Pat Unresp (Intubated)
Objective Data
Data Reviewed
Vital Signs / I&O / Oxygen:
Vital Signs
Temp Pulse Resp BP Pulse Ox
96.1 F L 86 0 113/64 98
03/09/25 13:00 03/09/25 13:04 03/09/25 13:04 03/09/25 12:20 03/09/25 13:04
Intake and Output
03/08/25 03/09/25 03/10/25
06:59 06:59 06:59
Intake Total 3047.2 / 3170.8 7633.5 / 7834.1 1132.0 / 1132.0
Output Total 695 / 750 3727 / 3845 863 / 863
Balance 2352.2 / 2420.8 3906.5 / 3989.1 269.0 / 269.0
SaO2 [A/C] 98
SaO2 [SIMV] 95
SaO2 98
Physical Exam
General: Respiratory Distress (negative) and Chills (negative)
HEENT: Normocephalic and Anicteric
Cardiovascular: S1-S2 and Peripheral Edema (negative)
Respiratory: Wheeze (negative), Rhonchi (negative), Non-Labored Respirations and ET Tube (Mechanical breath sounds heard bilaterally)
GI: Soft, Non Distended, Non Tender and Normal Bowel Sounds
Neurology: Tremors (negative) and Other (Sedated)
Skin: Warm, Dry, Cyanosis (negative) and Jaundice (negative)
Labs/Micro/Reports
Lab Data
03/09/25 21:30
Laboratory Results
03/08/25 03/08/25 03/08/25
08:00 14:06 15:30
PT 16.2 H
INR 1.27
APTT 33.9
pH Cancelled 7.45 Cancelled
pCO2 Cancelled 38 Cancelled
pO2 Cancelled 125 H Cancelled
HCO3 Cancelled 26.4 Cancelled
O2 Delivery Level Cancelled Cancelled
10/21/25 10/21/25 10/21/25
16:47 20:13 22:46
PT 17.5 H 26.8 H
INR 1.41 2.47
APTT 36.3 H 47.4 H
pH 7.42 7.42 7.45
pCO2 39 39 37
pO2 168 H 288 H 145 H
HCO3 25.3 25.3 25.7
O2 Delivery Level
03/09/25 03/09/25 03/09/25
00:18 01:30 03:41
PT 22.1 H 24.6 H
INR 1.92 2.21
APTT 40.9 H 41.6 H
pH 7.46 H Cancelled 7.46 H
pCO2 38 Cancelled 38
pO2 107 Cancelled 124 H
HCO3 27.0 Cancelled 27.0
O2 Delivery Level Cancelled
03/09/25 03/09/25 03/09/25
05:41 07:18 09:30
PT Cancelled
INR Cancelled
APTT Cancelled
pH 7.50 H 7.46 H Cancelled
pCO2 37 41 Cancelled
pO2 121 H 123 H Cancelled
HCO3 28.9 H 29.2 H Cancelled
O2 Delivery Level Cancelled
03/09/25 03/09/25 03/09/25
11:27 11:30 13:30
PT 28.5 H Cancelled
INR 2.62 Cancelled
APTT 43.8 H
pH 7.45 Cancelled Cancelled
pCO2 42 Cancelled Cancelled
pO2 65 L Cancelled Cancelled
HCO3 29.2 H Cancelled Cancelled
O2 Delivery Level Cancelled Cancelled
03/09/25 03/09/25
17:30 21:30
PT Cancelled Cancelled
INR Cancelled Cancelled
APTT
pH
pCO2
pO2
HCO3
O2 Delivery Level
[2025-03-09] MEDS: PROTONIX IV 40 MG IV (08:45)
[2025-03-09] MEDS: NSS (PRESERVATIVE FREE) 10 ML IV (08:45)
[2025-03-09] MEDS: DOBUTREX 250 IV (08:48)
[2025-03-09] MEDS: VANCOCIN 200 IV ×2 (08:49→20:00)
[2025-03-09] MEDS: LOW STRENGTH ASPIRIN TUBE (09:01)
[2025-03-09] MEDS: BACTROBAN 2% OINTMENT NASAL (09:04)
[2025-03-09] MEDS: PACERONE TUBE ×2 (09:04→15:59)
[2025-03-09] MEDS: SENOKOT TUBE (09:05)
--- NOTE | 2025-03-09 09:20 | PTCARENOTE ---
Patient to CVOR w/anesthesia, CVOR team.
[2025-03-09 09:50] LABS: ACT+ - POC 233 Seconds (82-134)
[2025-03-09 10:26] LABS: B.E. - POC 7.0 mmol/L; Glucose - POC 117 mg/dl (70-99); HCO3 - POC 31 mmol/L (21-28); Hematocrit - POC 17 % PCV (42-52); Hemodilution- POC No; Hemoglobin Calculated - POC 5.7; Ionized Calcium - POC 1.21 mmol/L (1.15-1.33); Lactate - POC 2.73 mmol/L (0.36-0.75); O2 Saturation %Calculated-POC 99.9 % (94-98); PCO2 - POC 43 mmHg (35-48); PO2 - POC 298 mmHg (83-108); Potassium - POC 4.4 mmol/L (3.5-5.1); Sodium - POC 147 mmol/L (136-145); Specimen Type - POC Arterial; pH - POC 7.47 (7.35-7.45)
[2025-03-09 10:58] LABS: B.E. - POC 4.1 mmol/L; Glucose - POC 158 mg/dl (70-99); HCO3 - POC 29 mmol/L (21-28); Hematocrit - POC 18 % PCV (42-52); Hemodilution- POC No; Hemoglobin Calculated - POC 6.2; Ionized Calcium - POC 1.08 mmol/L (1.15-1.33); Lactate - POC 3.06 mmol/L (0.36-0.75); O2 Saturation %Calculated-POC 99.4 % (94-98); PCO2 - POC 46 mmHg (35-48); PO2 - POC 161 mmHg (83-108); Potassium - POC 4.6 mmol/L (3.5-5.1); Sodium - POC 144 mmol/L (136-145); Specimen Type - POC Arterial; pH - POC 7.41 (7.35-7.45)
--- NOTE | 2025-03-09 11:07 | W.IMMPOSTOP ---
Surgical Immed Post Op Note
-
CARDIAC SURGERY OPERATIVE NOTE:
Preoperative Dx:
Status post prior CABG x 4 (BJ to LAD, greater saphenous vein to OM/LPL, greater saphenous vein to diagonal), complex mitral valve repair, tricuspid valve repair, left atrial maze, excision of left atrial fibroelastoma, and exclusion of left
atrial appendage
Status post repair of ATAAD with redo sternotomy, hemiarch replacement, aortic root replacement, ligation of dissected left and right main coronaries, coronary bypass grafting x 1 (GSV to acute marginal) and vein to vein anastomoses x 2 to prior
greater saphenous vein grafts; open chest dressing
Status post central placement of Impella 5.5, open chest
Status post tamponade with bedside exploration, control of COLBY, reapplication of open chest dressing
Prior potential kinking of proximal portion of greater saphenous vein graft
Postoperative Dx:
Same
Procedures:
1. Mediastinal reexploration/irrigation and removal of packing
2. Repositioning of proximal course of greater saphenous vein graft with several 6-0 Prolene sutures (placed/subsequently removed)
3. Placement of 6 mm ringed PTFE graft around proximal segment of greater saphenous vein graft
4. Replacement of new mediastinal packing (1 vaginal pack and partial roll of Kerlex; syringe based sternal separation)
5. Reexploration with replacement of new open chest dressing
Surgeon:
Oscar Jacobs M.D.
Family Consumer Science Teacher:
Ida Hernandez P.A.-C.
Anesthesia:
Francisco Oviedo M.D.
Implants:
1 vaginal packing strip
1 partial roll of Kerlex gauze
1 syringe (sternal separation)
Complications:
Patient with PACs every other beat during mediastinal washout
Upon initial application of open chest dressing, patient with loss of conduction necessitating institution of pacing with rapid samaritan of hemodynamics
Transfusions:
3 units packed red blood cells
Condition:
Guarded to CVICU with open chest dressing in place
[2025-03-09 11:34] LABS: B.E. 4.7 mmol/L; HCO3 29.2 mmol/L (21-28); O2 Saturation % 96.5 % (94-98); PCO2 42 mmHg (35-48); PO2 65 mmHg (83-108); Potassium 4.8 mMOL/L (3.5-5.1); Sodium 141 mMOL/L (136-145)
[2025-03-09 11:37] LABS: Hematocrit 28.9 % (39.0-52.0); Hemoglobin 9.9 g/dL (13.0-18.0); Mean Corp Hgb Conc. 34.3 g/dL (33.0-37.0); Mean Corpuscular Volume 88.4 fL (80.0-94.0); Platelet Count 53 10^3/uL (130-400); Red Cell Dist. Width 15.4 % (11.5-14.5)
[2025-03-09 11:45] LABS: INR 2.62; PT 28.5 Sec (11.4-14.6)
[2025-03-09 11:46] LABS: APTT 43.8 Sec (23.4-35.0); Fibrinogen 154 MG/DL (199-459)
[2025-03-09 11:49] LABS: Blood Urea Nitrogen 34 mg/dl (9-20); Calcium 7.6 mg/dl (8.4-10.2); Carbon Dioxide 31 mmol/L (22-30); Chloride 110 mmol/L (98-107); Estimated Creatinine Clearance 51 ml/min; Glucose 148 mg/dl (70-99); Magnesium 2.1 mg/dl (1.6-2.3); Potassium 4.5 mmol/L (3.5-5.1); Sodium 142 mmol/L (135-145); eGFR 48.25
[2025-03-09 12:06] LABS: Glucose - Point of Care 163 mg/dl (70-99)
[2025-03-09 12:19] LABS: D-Dimer 2.58 ug/mlFEU (0.00-0.50)
[2025-03-09] MEDS: AQUAMEPHYTON 52.5 MG IV (12:46)
[2025-03-09] MEDS: ADRENALIN 258 MG IV (12:46)
[2025-03-09 12:55] LABS: LDH 847 U/L (120-246)
[2025-03-09 13:01] LABS: Glucose - Point of Care 122 mg/dl (70-99)
--- NOTE | 2025-03-09 13:18 | PHA.VAN.IN ---
Assessment
- Assessment
Renal Function: CRRT (CVVHD @ 2 L/H)
Concomitant Antimicrobials: cefazolin
CVVHD @ 2 L/H - stopped prior to OR this AM just before 0800 and resumed around 1200
Plan
- Plan
Patient has received the following doses to date:
03/08 08:15 - 1000mg (pre-op)
03/08 PM - 1g scanned as given at 18:57 but administered intra-op
03/09 09:15 - 1g (scanned 08:49 but given pre-op)
Will adjust patient to dosing by level - give 4th dose of 1000mg this PM and obtain random in AM to assess clearance with CRRT
Pharmacokinetics Vancomycin I
- -
Patient Age: 74
Patient Sex: Male
Vancomycin Day #: 2 (obtained consult 03/09)
Indication: Prophylaxis (Surg,Hiv,...)
Requesting Provider: Beau Sands
Pertinent Antimicrobial Allergies:
NKDA
Height / Weight:
Height 5 ft 11 in
Actual Weight 98.7 kg
Pertinent Past Medical History: BMI ~30
- Vital Signs / Lab Results
Temp Pulse Resp BP Pulse Ox
96.1 F L 86 0 113/64 98
03/09/25 13:00 03/09/25 13:04 03/09/25 13:04 03/09/25 12:20 03/09/25 13:04
Lab Results - Hematology
03/07/25 03/07/25 03/08/25
04:14 10:08 04:48
WBC 12.3 H 10.3 18.5 H
03/08/25 03/08/25 03/08/25
10:29 14:06 16:47
WBC 12.1 H 11.2 H 8.6
03/08/25 03/09/25 03/09/25
20:13 00:18 03:41
WBC 8.5 12.0 H 12.5 H
03/09/25 03/09/25 03/09/25
05:41 09:30 11:27
WBC 12.3 H Cancelled 11.6 H
03/09/25 03/09/25 03/09/25
13:30 17:30 21:30
WBC Cancelled Cancelled Cancelled
Lab Results - Chemistry
03/07/25 03/07/25 03/07/25
04:14 10:08 11:22
BUN 26 H Cancelled 27 H
Creatinine 0.7 Cancelled 0.6 L
Estimated Creat Clear 97 Cancelled 113
Albumin Cancelled 2.4 L
03/07/25 03/08/25 03/08/25
19:09 04:48 10:29
BUN 26 H 28 H 34 H
Creatinine 0.8 1.6 H 1.3
Estimated Creat Clear 85 42 52
Albumin 1.6 L 1.7 L
03/08/25 03/08/25 03/08/25
14:06 16:47 20:13
BUN 37 H 35 H 28 H
Creatinine 1.4 H 1.7 H 1.3
Estimated Creat Clear 49 40 52
Albumin 1.9 L 1.9 L 1.2 L
03/09/25 03/09/25 03/09/25
00:18 03:41 09:30
BUN 33 H 32 H Cancelled
Creatinine 1.5 H 1.4 H Cancelled
Estimated Creat Clear 45 49 Cancelled
Albumin 1.9 L 2.0 L Cancelled
03/09/25 03/09/25 03/09/25
11:27 13:30 17:30
BUN 34 H Cancelled Cancelled
Creatinine 1.5 H Cancelled Cancelled
Estimated Creat Clear 51 Cancelled Cancelled
Albumin Cancelled Cancelled
03/09/25
21:30
BUN Cancelled
Creatinine Cancelled
Estimated Creat Clear Cancelled
Albumin Cancelled
03/07/25 03/08/25 03/08/25
20:42 04:48 10:29
Lactic Acid 11.2 H* 18.1 H* 12.5 H*
03/08/25 03/08/25 03/08/25
11:44 14:06 15:30
Lactic Acid 12.6 H* 12.4 H* Cancelled
03/08/25 03/08/25 03/08/25
16:47 20:13 22:46
Lactic Acid 12.6 H* 8.5 H* 8.1 H*
03/09/25 03/09/25 03/09/25
00:18 01:30 03:41
Lactic Acid 7.7 H* Cancelled 6.2 H*
03/09/25 03/09/25 03/09/25
05:41 09:30 11:27
Lactic Acid 5.1 H* Cancelled 3.1 H
03/09/25 03/09/25 03/09/25
12:08 13:30 15:30
Lactic Acid 3.2 H Cancelled Cancelled
03/09/25 03/09/25 03/09/25
17:30 19:30 21:30
Lactic Acid Cancelled Cancelled Cancelled
03/09/25
23:30
Lactic Acid Cancelled
Lab Results - Urine
03/07/25
11:10
Urine Nitrite (Reflex) Negative
Leukocyte Esterase Rfl Negative
Urine WBC (Reflex) 0-2
Ur Squamous Epith Cells 3-5
Urine Bacteria (Reflex) Few A
[2025-03-09] MEDS: FERRLECIT 110 MG IV (13:29)
[2025-03-09 15:08] LABS: ACT+ - POC 170 Seconds (82-134)
--- NOTE | 2025-03-09 15:09 | PTCARENOTE ---
Multiple blood products given t/o course of the day. URSZULA being updated to chest tube output. Approximately 1410, patient suddenly becomes hypotensive - pressors increased w/out response. Dr. Sullivan and team to bedside. Decision made to re-explore
chest at bedside, then return to CVOR. Patient transported to CVOR w/team via bed.
--- NOTE | 2025-03-09 15:38 | W.PN.NEPH.PH ---
Today's Communication / Plan
-
twister tender
Assessment/Plan
-
Impression:
Acute type A Aortic dissection with involvement of bilateral coronary ostia and circumferentially around the root with operative repair on 03/08/25
Acute kidney injury
Postoperative cardiogenic shock now on inotropic support
History of CABG x 4 mitral valve repair tricuspid valve repair maze and EVI exclusion on 02/16/2025
Status post Impella placement on 03/08/2025
Lactic acidosis 12.4
Vent dependent respiratory failure
NSVT
Ischemic cardiomyopathy with EF of 45 to 50%
Atrial fibrillation
History of hypertension
Plan:
- CRRT pressors, ionotropic support (dobutamine), and cardiogenic shock with Impella device placement ,requiring multiple blood product infusions and with evolving lactic acidosis
-FiO2 on vent currently at 60%, PAD ~ 25 per [place] catheter
- volume removal EVEN on CRRT
- prognosis guarded/poor
Total Time Spent with Patient (in minutes): 33
-
-
Date of Service: March 09, 2025
CC / HPI / ROS
-
Chief Complaint:
aortic disection
History of Present Illness:
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
Seen earlier today postoperatively washout
Review of Systems:
An uric
Pressor support remains
Labs
-
Labs:
Sodium Cancelled 03/09/25 21:30
Potassium Cancelled 03/09/25 21:30
Chloride Cancelled 03/09/25 21:30
Carbon Dioxide Cancelled 03/09/25 21:30
BUN Cancelled 03/09/25 21:30
Creatinine Cancelled 03/09/25 21:30
eGFR Cancelled 03/09/25 21:30
Glucose Cancelled 03/09/25 21:30
Calcium Cancelled 03/09/25 21:30
Phosphorus Cancelled 03/09/25 21:30
Qgf-X-Byladdsvcdc Pept 2970 pg/ml 03/04/25 15:44
Albumin Cancelled 03/09/25 21:30
Physical Exam
-
Vital Signs:
Vital Signs
Temp Pulse Resp BP Pulse Ox
96.2 F L 84 0 99/67 99
03/09/25 14:00 03/09/25 14:38 03/09/25 14:38 03/09/25 14:00 03/09/25 14:38
--- NOTE | 2025-03-09 15:39 | W.PN.UPDATE ---
Update Note
Progress Note Update
74 yo male with PMH of ICM EF 35-40%, chronic HFrEF, persistent A fib on eliquis, HTN, CAD s/p CABG x 4, MV repair, TV repair, MAZE, and EVI exclusion with Dr. Sullivan (02/16/25); admitted on 03/04/2025 with acute on chronic HFrEF, subsequently found to
have severe AR due to Moses type A aortic dissection. he is now s/p Emergent Redo sternotomy with extensive adhesiolysis (Modifier 22 for additional dissection time of 1 hour)/Hemiarch ascending aortic replacement/ Aortic root replacement using a
27 mm valved conduit/Ligation of left and right coronary ostia as they were dissected coronary bypass grafting to an acute marginal/Relocation of previous vein grafts onto this acute marginal vein graft/Temporary chest packing, open chest, by "Andrew"Laurie, 03/07/25 and S/p placement of a 5.5 direct aortic Impella LVAD on 03/08/25. Yesterday, patient suffered from cardiac tamponade and a Emergency bedside reopening of chest and the evacuation of clot; ligation of IAN, which was the bleeding
source; repacking with 1 vaginal pack and Kerlix; replacement of new chest tubes by Dr. Sullivan. Today he was taken by Dr. Jacobs for a mediastinal reexploration/irrigation and placement of 6mm ringed PTFE graft around the greater saphaenous graft.
patient has a brief episode of asytole and required pacing. He returned to the CVICU for recovery. He was monitored closely for bleeding and was given FFp, Cryo, plts, and prbcs transfusions. Patient became acutely hypotensive again and pressor and
impella requirements johnna. Dr. Sullivan was called to bedside and patient was reentry of open chest for cardiac tamponade. Clots were evacuated and was then taken back to the OR. Patient's condition is critical and his , Deonna, was updated.
Neuro:
#BECKIE
- last follow commands on 03/09
- currently on propofol and fentanyl gtt
- target Rass -3 to -4
Cardiovascular:
#Cardiogenic shock s/p impella 5.5 placement
#Type A Aortic Dissection
#Open chest
- Maintain maps >65
- Maintain impella P-level at P4
>>keep d5W and bicarb purge solution
- Continue Epi @5, DTX @5
- Titrate levo and vasopressin as able
- Strict I&O
- Monitor CT output
- Continue open chest antibiotics for 7 days
- Cards consulted
Pulmonary:
#VDRF
- Wean FIO2 as able for Sats >90%
- vent bundle
- oral hygiene
- tax compliance representative/pulm consulted
GI:
#shock liver
- daily CMP; monitor trend
- statins and tylenol on hold
- Continue IV protonix
- t/C eventual TFs and OGT placement
:
#IRON
- maintain CRRT with volume removal as tolerated
- maintain Trialysis catheter
- nephro consulted
Endo:
#BECKIE
-Continue insulin gtt
Heme:
#DIC
#Anemia
#Hemolysis
- continue frequent coag monitoring and administration of supportive products
- s/p Vitamin K
- s/p Factor VII (total 14mg)
- must hold at least 2plts in house for MCS
- must maintain active type and screens
CPT code 08916 (Critical care monitoring)
CPT Code 54171 (Device management)
[2025-03-09 15:45] LABS: ACT+ - POC 252 Seconds (82-134)
[2025-03-09 16:28] LABS: B.E. - POC 5.8 mmol/L; Glucose - POC 125 mg/dl (70-99); HCO3 - POC 33 mmol/L (21-28); Hematocrit - POC 28 % PCV (42-52); Hemodilution- POC Yes; Hemoglobin Calculated - POC 9.4; Ionized Calcium - POC 1.24 mmol/L (1.15-1.33); Lactate - POC 3.20 mmol/L (0.36-0.75); O2 Saturation %Calculated-POC 98.8 % (94-98); PCO2 - POC 59 mmHg (35-48); PO2 - POC 134 mmHg (83-108); Potassium - POC 4.2 mmol/L (3.5-5.1); Sodium - POC 147 mmol/L (136-145); Specimen Type - POC Arterial; pH - POC 7.35 (7.35-7.45)
[2025-03-09 16:33] LABS: ACT+ - POC 225 Seconds (82-134)
[2025-03-09 16:37] LABS: B.E. - POC 4.0 mmol/L; Glucose - POC 106 mg/dl (70-99); HCO3 - POC 30 mmol/L (21-28); Hematocrit - POC 27 % PCV (42-52); Hemodilution- POC Yes; Hemoglobin Calculated - POC 9.1; Ionized Calcium - POC 1.19 mmol/L (1.15-1.33); Lactate - POC 2.58 mmol/L (0.36-0.75); O2 Saturation %Calculated-POC 99.3 % (94-98); PCO2 - POC 50 mmHg (35-48); PO2 - POC 154 mmHg (83-108); POC Comment POST 50 MG PROTAMINE; Potassium - POC 3.8 mmol/L (3.5-5.1); Sodium - POC 147 mmol/L (136-145); Specimen Type - POC Arterial; pH - POC 7.39 (7.35-7.45)
[2025-03-09 16:43] LABS: ACT+ - POC 266 Seconds (82-134)
--- NOTE | 2025-03-09 16:43 | W.PN.CT.SURG ---
Addendum entered and electronically signed by Ilan Sullivan MD 03/23/25 08:11:
Oscar Jacobs MD (assisted with the majority of the operation, and did portions of the vein to vein anastomosis, assisted with retraction and exposure)
Original Note:
CT Surgery Operative Note
-
And CARDIAC SURGERY OPERATIVE REPORT
Preoperative Diagnosis: Kinking of single vein graft
Postoperative Diagnosis: Same
Procedure(s) Performed:
1. Reopening of temporary chest coverage
2. Ligation of IAN
3. Coronary artery bypass grafting x 1 (Aortic Graft to RSVG to RSVG - T-graft)
4. Open vein harvest of the left thigh
5. Transesophageal echocardiography
6. Repacking of chest and placement of temporary dressing
Date of Surgery: 03/09/2025
Attending Surgeon: Ilan Sullivan MD, MS
Assistants: Oscar Jacobs MD, Rebeca Townsend PA-C (present and necessary to social science research assistant, retraction, suction, exposure, suture management, and wound closure under my direction), Ilan Clark PA-C (open vein harvest)
Anesthesiology: Jose Manuel Oviedo MD and Karolyn Lanza CRNA
Scrub and Circulating RNs: Rain Yee RN, Tere Gtz, SEBASTIAN
Mud Boss: Daren Saini CCP
Anesthesia: GETA
EBL: per perfusion records
Indication(s) for Procedures: This is a 74-year-old male who status post type a dissection repair. He has had a complicated postoperative course with an open chest in the ICU. He has had a single vein graft that supplying essentially his entire
circulatory system to his heart. There was high suspicion that he had kinking of this vessel again in the CVICU and so his chest was open emergently. This resulted in significant hemodynamic improvement. He is brought back to the operating room
for exploration and revision of this graft.
Conduit(s) Quality:
RSVG -excellent
Retained objects:
Part of a Curlex and a single vaginal pack
Findings and Description of the Procedure: A timeout was then performed the patient was prepped in a sterile fashion. While under anesthesia, we temporarily occluded the vein graft to see if this caused hemodynamic instability which it did. An
[place] shunt was then taken and shortened to approximately 3 cm. We were able to harvest a usable piece of vein from his left thigh. Under partial occlusion we performed the proximal anastomosis after using eye cautery to make a small hole in the
ascending aortic graft. This was close to the distal suture line. This was done with 7-0 Prolene in a running fashion. Next, a bulldog clamp was placed on this graft and the distal end of the vein graft was applied to the midportion of the
existing vein graft after placing the [place] shunt with Vesseloops on each side to occlude. The shunt was then removed and we then we tied down the anastomosis. The new vein graft did appear to be somewhat long and so we placed 2 bulldog clamps 1
distally and proximally to shorten the vein graft via a vein to vein anastomosis which gave it a better lie overall. The existing vein graft was then tacked to the ascending aortic graft in various places in order to promote a better course without
kinking. The right hemithorax was then elevated again and we inspected it thoroughly and the IAN was then clipped. Flow probe assessment of the graft demonstrated 180 to 200 cc/min mean flow at a pulse index of 1.9. A single vaginal pack was
then placed along the right side of the chest. A syringe was used to use as a sternal brace and then Kerlix was placed loosely over top. Chest tube was then flushed and replaced back into the mediastinum and pleural cavities.
All instrument, sponge, and needle counts were confirmed to be correct x 2 at the end of the operation. The patient was transferred to the cardiac intensive care unit in critical but guarded condition.
I, Dr. Ilan Sullivan, was present, scrubbed for, and performed all critical elements of this procedure.
Ilan Sullivan MD, MS
Cardiothoracic Surgeon
[facility]
This operative dictation was created using the [employer] dictation system. Please excuse any grammatical, typographical, or 'sound alike' errors
[2025-03-09 16:50] LABS: ACT+ - POC 186 Seconds (82-134)
[2025-03-09 17:12] LABS: Glucose - Point of Care 110 mg/dl (70-99)
[2025-03-09 17:19] LABS: B.E. 5.0 mmol/L; HCO3 29.9 mmol/L (21-28); O2 Saturation % 99.8 % (94-98); PCO2 45 mmHg (35-48); PO2 238 mmHg (83-108); Potassium 4.2 mMOL/L (3.5-5.1); Sodium 141 mMOL/L (136-145)
[2025-03-09 17:30] LABS: APTT 39.1 Sec (23.4-35.0); INR 2.58; PT 28.1 Sec (11.4-14.6)
[2025-03-09 17:30] LABS: Hematocrit 25.8 % (39.0-52.0); Hemoglobin 8.7 g/dL (13.0-18.0); Mean Corp Hgb Conc. 33.7 g/dL (33.0-37.0); Mean Corpuscular Volume 88.7 fL (80.0-94.0); Platelet Count 54 10^3/uL (130-400); Red Cell Dist. Width 15.2 % (11.5-14.5)
[2025-03-09] MEDS: CALCIUM GLUCONATE 130 MG IV (17:39)
[2025-03-09 17:45] LABS: Blood Urea Nitrogen 35 mg/dl (9-20); Calcium 7.7 mg/dl (8.4-10.2); Carbon Dioxide 33 mmol/L (22-30); Chloride 110 mmol/L (98-107); Estimated Creatinine Clearance 51 ml/min; Glucose 113 mg/dl (70-99); Magnesium 2.1 mg/dl (1.6-2.3); Potassium 4.0 mmol/L (3.5-5.1); Sodium 143 mmol/L (135-145); eGFR 48.25
[2025-03-09] MEDS: NSS 500 IV (17:48)
[2025-03-09] MEDS: SODIUM BICARBONATE 1025 MEQ INF CATH (18:45)
[2025-03-09 18:52] LABS: Hematocrit 25.5 % (39.0-52.0); Hemoglobin 8.8 g/dL (13.0-18.0); Mean Corp Hgb Conc. 34.5 g/dL (33.0-37.0); Mean Corpuscular Volume 87.0 fL (80.0-94.0); Platelet Count 51 10^3/uL (130-400); Red Cell Dist. Width 15.0 % (11.5-14.5)
[2025-03-09 18:59] LABS: Glucose - Point of Care 131 mg/dl (70-99)
[2025-03-09 19:07] LABS: LDH 581 U/L (120-246)
[2025-03-09] MEDS: BACTROBAN 2% OINTMENT 1 APPLIC NASAL (20:00)
[2025-03-09 20:11] LABS: B.E. 5.8 mmol/L; HCO3 29.8 mmol/L (21-28); O2 Saturation % 99.4 % (94-98); PCO2 40 mmHg (35-48); PO2 107 mmHg (83-108); Potassium 4.0 mMOL/L (3.5-5.1); Sodium 141 mMOL/L (136-145)
[2025-03-09 20:34] LABS: Blood Urea Nitrogen 32 mg/dl (9-20); Calcium 8.4 mg/dl (8.4-10.2); Carbon Dioxide 33 mmol/L (22-30); Chloride 108 mmol/L (98-107); Estimated Creatinine Clearance 59 ml/min; Glucose 107 mg/dl (70-99); Magnesium 2.0 mg/dl (1.6-2.3); Potassium 3.9 mmol/L (3.5-5.1); Sodium 141 mmol/L (135-145); eGFR 57.29
--- NOTE | 2025-03-09 21:00 | PTCARENOTE ---
Assumed care of pt from jose RN. Pt intubated and sedated. Pupils 2mm and reactive to light. A/V paced on the tele monitor w/ intermittent PVC's, just v-pacing, and pt own beats. Temporary epicardial A/V wires set to DDD w/ rate of 70. BPs
90-100s/50-60s. PAPs 30s/teens. CVP ~12. CI 2.48, CO 5.16, SVR 1069. Impella 5.[address] at the left neck and set to P4. Secured in 3 places. Pt w/ ETT #8, 24cm at the left lip. 40% FiO2. POX 98%. See worklist for full vent settings. Lung sounds
audible and diminished b/l. Mediastinal CTx2 to -20 suction, no airleak noted, and output as documented. R/L pleural CT's to separate chambers to -20 suction, no airleaks noted, and output as documented. Abdomen soft. Absent BS. Buenrostro catheter
intact and draining geovanna urine. CVVHD CRRT running via left fem catheter. Goal to remain even. See worklist for full CRRT settings. Chest open w/ CVOR dressing intact. B/L leg SVG sites stable. R/L radial a-lines and R fem a-line in place. Right IJ
cordis w/ swan @45 C/D/I. PIVx2 intact. All lines leveled, zeroed, and flushed. 1 unit platelets initiated ~193. Fent/prop/insulin/levo/epi/vaso/dobut infusing as documented. Glycemic protocol followed. See worklist for full nursing assessment and
interventions.
[2025-03-09 21:01] LABS: Glucose - Point of Care 139 mg/dl (70-99)
[2025-03-09 21:55] LABS: Glucose - Point of Care 108 mg/dl (70-99)
[2025-03-09] MEDS: RFP-401 HD Soln (K+ 4 mEq/L) 5000 ML CRRT-IRR ×4 (22:04→22:31)
[2025-03-09 23:09] LABS: Glucose - Point of Care 86 mg/dl (70-99)
[2025-03-10] VITALS (13 sets, daily range): BP systolic 82–105; BP diastolic 58–67; BMI 30.8
[2025-03-10 00:08] LABS: Glucose - Point of Care 82 mg/dl (70-99)
[2025-03-10] MEDS: CORDARONE 259 MG IV ×3 (00:11→22:14)
--- NOTE | 2025-03-10 00:15 | W.PN.CT ---
Addendum entered and electronically signed by Ilan Sullivan MD 03/11/25 06:21:
I saw and examined the patient.
The PA's note was reviewed and I agree with the note.
Comment:
DAILY IMPELLA MANAGEMENT NOTE:
Maintain at P4, LDH coming down, LActate clearing, no suction alarms. Plan to continue slow wean of vasoactive support, while maintaining intropic support. Give diuretic bolus and see if we can stimulate his kidneys to start functioning, goal is
just net even on CRRT, will see if we can push more tomorrow. Tentative plan is for chest closure with me Friday. Seems to doing better post revision of bypass.
Total critical care time 41 mins.
Original Note:
Today's Communication / Plan
-
Sedation�= fentanyl and�propofol�
Chest�remains�open�
Current drips: Vaso = 0.02,�Levophed�@�4,�Dobutamine @ 5, Amio @ 1�
Recurrent�Afib�overnight�=�restarted�amio�drip; 10�beat�of VT @ 0400�
Impella 5.5 settings�P4�
Chest Tubes: 2 MS =�480�/�0�=480;�L PL =�375/75 =430����R Pl =280/027=024�
Vent setting�= SIMV�40/16/500/5�
NPO, insulin drip,�shocked�liver�(statins and�Tylenol�on hold)�
IRON�requiring�CRRT = net balance�even�
Blood product goals;�> 50,�HGb�>8, 2.5 INR > FFP;�received�one unit of platelets overnight�
Monitor�for hemolysis�
Empiric�Antibiotics = Vanco and�Ancef�
Maintain�temp�PW��
Assessment / Plan
-
Assessment:
-S/p Emergent Redo sternotomy with extensive adhesiolysis (Modifier 22 for additional dissection time of 1 hour)/Hemiarch ascending aortic replacement/ Aortic root replacement using a 27 mm valved conduit/Ligation of left and right coronary ostia as
they were dissected coronary bypass grafting to an acute marginal/Relocation of previous vein grafts onto this acute marginal vein graft/Temporary chest packing, open chest, by Dr. Sullivan, 03/07/25, pod#3
-S/p placement of a 5.5 direct aortic Impella LVAD on 03/08/[address] Sullivan
-Cardic tamponade/ Cardiovascular collapse- s/p Emergency bedside reopening of chest and the evacuation of clot; ligation of IAN, which was the bleeding source; repacking with 1 vaginal pack and Kerlix; replacement of new chest tubes by Dr. Sullivan on
03/08/25
S/p�mediastinal�reexploration/irrigation and placement of�6mm�ringed PTFE graft around the greater�saphaenous�graft. ���S/P�Emergent�Ligation of IAN, Coronary artery bypass grafting x 1 (Aortic Graft to RSVG to RSVG - T-graft)�03/09
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
-Worsening of aortic valve insufficiency to severe secondary to dissection
-Acute on chronic congestive heart failure with volume overload secondary to new aortic valve insufficiency
-Hypertension
-Hyperlipidemia
-Hypothyroidism
-AFIB on Eliquis
-Ischemic CM
-Recent cardiac surgery over 20 days ago
-Mitral valve insufficiency status post repair
-Tricuspid insufficiency status post repair
-Coronary artery disease status post CABG
-S/P CABG x 4, MV repair, TV repair, MAZE, and EVI exclusion, Dr. Sullivan 02/16/25, Readmitted for SOB on 03/04
-Acute intraop/postop blood loss/Anemia (transfused 2u PRBC's)
-Acute intraop and postop coagulopathy (Administered 10mg Factor VII); chest packed and kept opened
-Acute postop Pulmonary insufficiency
-Acute postop Metabolic Acidosis, followed by metabolic alkalosis
-Acute postop Lactic acidosis
-IRON
-Cardiac tamponade 03/08/25
Subjective
Procedure
S/p Emergent Redo sternotomy with extensive�adhesiolysis�(Modifier 22 for additional dissection time of 1 hour)/Hemiarch ascending aortic replacement/ Aortic root replacement using a�27 mm�valved conduit/Ligation of left and right coronary ostia as
they were dissected coronary bypass grafting to an acute marginal/Relocation of previous vein grafts onto this acute marginal vein graft/Temporary chest packing, open chest, by Dr. Sullivan,
-
Date of Service: March 10, 2025
Objective Data
-
PT Cancelled 03/09/25 21:30
INR Cancelled 03/09/25 21:30
APTT 39.1 Sec (23.4-35.0) H 03/09/25 17:08
Vital Signs
Vital Signs
Temp Pulse Resp BP Pulse Ox
97.6 F 102 18 105/65 97
03/10/25 00:00 03/10/25 00:00 03/10/25 00:00 03/10/25 00:00 03/10/25 00:00
CT Intake/Output/Weight
03/09/25 03/09/25 03/10/25
06:59 18:59 06:59
Intake Total 3567.3 / 7834.1 1477.5 / 2826.5 1349.0 / 2826.5
Output Total 1991 / 3845 1438 / 2377 939 / 2377
Balance 1575.3 / 3989.1 39.5 / 449.5 410.0 / 449.5
SaO2: 97
Physical Exam
-
General: Other (sedated)
Cardiovascular: Irregular rate & rhythm
Respiratory: Clear
Sternum: Other (open chest)
Incision: Other (open chest)
Extremities: Edema +2
[2025-03-10 00:38] LABS: B.E. 6.4 mmol/L; HCO3 30.5 mmol/L (21-28); O2 Saturation % 99.0 % (94-98); PCO2 41 mmHg (35-48); PO2 114 mmHg (83-108); Potassium 4.1 mMOL/L (3.5-5.1); Sodium 141 mMOL/L (136-145)
[2025-03-10 00:39] LABS: O2 Therapy VENT
[2025-03-10 00:45] LABS: Hematocrit 24.5 % (39.0-52.0); Hemoglobin 8.4 g/dL (13.0-18.0); INR 2.19; Mean Corp Hgb Conc. 34.3 g/dL (33.0-37.0); Mean Corpuscular Volume 87.8 fL (80.0-94.0); Nucleated Red Blood Cells % 3.8 % (-); PT 24.8 Sec (11.4-14.6); Platelet Count 62 10^3/uL (130-400); Red Cell Dist. Width 15.4 % (11.5-14.5)
[2025-03-10 00:46] LABS: APTT 42.4 Sec (23.4-35.0)
[2025-03-10 01:06] LABS: Blood Urea Nitrogen 32 mg/dl (9-20); Calcium 8.3 mg/dl (8.4-10.2); Carbon Dioxide 32 mmol/L (22-30); Chloride 110 mmol/L (98-107); Estimated Creatinine Clearance 64 ml/min; Glucose 84 mg/dl (70-99); LDH 577 U/L (120-246); Magnesium 2.0 mg/dl (1.6-2.3); Potassium 4.0 mmol/L (3.5-5.1); Sodium 139 mmol/L (135-145); eGFR > 60.00
--- NOTE | 2025-03-10 01:14 | PTCARENOTE ---
Pt reassessed. Neuro assessment unchanged. Pt into a-fib ~2149. URSZULA aware. Amio drip. Occasional A/v pacer spikes. BP's 85-100s/60s. PAPs 40s/20s. CVP~12. CI >2. Impella 5.5 remains at P4. Order to change respirations on vent to 16 ~0115 based on
ABG results. respiratory at the bedside. POX 98%. FiO2 40%. CTx4 assessment unchanged. Minimal output from meds. Buenrostro catheter intact and draining geovanna urine ~25-30/hr. CRRT running w/o issue. Dialysate bags replaced. Open chest w/ CVOR dressing
intact. All lines leveled, zeroed, and flushed. Glycemic protocol followed. Drips titrated as documented in worklist. Epi off ~0045. Current drips include; vaso, levo, fent, prop, insulin, dobut, and amio.
[2025-03-10 02:13] LABS: Glucose - Point of Care 101 mg/dl (70-99)
[2025-03-10] MEDS: SUBLIMAZE 100 IV ×2 (02:28→13:11)
[2025-03-10] MEDS: ANCEF 5 IV ×3 (02:30→18:07)
[2025-03-10 04:10] LABS: Glucose - Point of Care 97 mg/dl (70-99)
[2025-03-10 04:43] LABS: B.E. 5.4 mmol/L; HCO3 29.9 mmol/L (21-28); O2 Saturation % 99.4 % (94-98); PCO2 43 mmHg (35-48); PO2 102 mmHg (83-108); Potassium 4.2 mMOL/L (3.5-5.1); Sodium 140 mMOL/L (136-145)
--- NOTE | 2025-03-10 04:51 | PTCARENOTE ---
Pt reassessed. Pt responsive to painful stimuli. Slight movement in legs. Pupils 2mm, reactive. A-fib on the monitor w/ intermittent A/V pacer spikes. 8 beat run VT ~0400. BPs 80-90s/50-60s. Attempted to wean vaso to 0.01 - SBP's consistently in
80s. Vaso titrated back to 0.02. PAPs 30s/teens. CVP~11. CI>2. Impella 5.5 maintained at P4. ETT intact. Mouth care provided as documented. RR 16. FIO2 405. POX 97%. CTx4 assessment unchanged. Buenrostro catheter intact and draining geovanna urine
~20-25/hr. CRRT running w/o issue. Open chest incision stable. All lines leveled, zeroed, and flushed. Glycemic protocol followed. Ordered labs sent. PRN EKG to assess rhythm. Heel/elbow foams applied. Current drips; fent, prop, vaso, levo, amio,
insulin, and dobut.
[2025-03-10 04:57] LABS: INR 2.16; PT 24.2 Sec (11.4-14.6)
[2025-03-10 04:59] LABS: APTT 41.2 Sec (23.4-35.0); Fibrinogen 186 MG/DL (199-459)
[2025-03-10 05:00] LABS: Hematocrit 23.9 % (39.0-52.0); Hemoglobin 8.1 g/dL (13.0-18.0); Mean Corp Hgb Conc. 33.9 g/dL (33.0-37.0); Mean Corpuscular Volume 88.2 fL (80.0-94.0); Platelet Count 56 10^3/uL (130-400); Red Cell Dist. Width 15.5 % (11.5-14.5)
[2025-03-10 05:09] LABS: D-Dimer 6.97 ug/mlFEU (0.00-0.50)
[2025-03-10 05:10] LABS: Blood Urea Nitrogen 29 mg/dl (9-20); Calcium 8.1 mg/dl (8.4-10.2); Carbon Dioxide 32 mmol/L (22-30); Chloride 110 mmol/L (98-107); Estimated Creatinine Clearance 64 ml/min; Glucose 90 mg/dl (70-99); LDH 598 U/L (120-246); Magnesium 1.9 mg/dl (1.6-2.3); Potassium 3.9 mmol/L (3.5-5.1); Sodium 137 mmol/L (135-145); Triglycerides 70 mg/dl (10-149); eGFR > 60.00
[2025-03-10] MEDS: NITRO-BID TOPICAL ×3 (05:10→16:29)
[2025-03-10] MEDS: DIPRIVAN 100 IV ×3 (05:30→21:11)
[2025-03-10] MEDS: RFP-401 HD Soln (K+ 4 mEq/L) 5000 ML CRRT-IRR ×8 (05:45→23:25)
[2025-03-10 06:01] LABS: Glucose - Point of Care 94 mg/dl (70-99)
[2025-03-10] MEDS: MAGNESIUM SULFATE 50 IV (06:11)
[2025-03-10] MEDS: NOVOLIN R INSULIN INFUSION 100 IV (06:12)
[2025-03-10] MEDS: PITRESSIN 100 IV (06:12)
--- NOTE | 2025-03-10 07:09 | W.PN.CD ---
Today's Communication / Plan
-
Wean support as able.
I remain concerned about impella pump thrombosis/hemolysis, but the patient requires MCS.
Impella should be removed when hemodynamically tolerable. Currently at P4. If the patient can tolerate P2, consider discontinuing.
Agree with diuresis.
Impression / Plan
-
Impression/Plan: 74 yo male with PMH of ICM EF 35-40%, chronic HFrEF, persistent A fib on eliquis, HTN, CAD s/p CABG x 4, MV repair, TV repair, MAZE, and EVI exclusion with Dr. Sullivan (02/16/25); admitted on 03/04/2025 with acute on chronic HFrEF,
subsequently found to have severe AR due to Vernon type A aortic dissection.
#Aortic dissection
-Acute, Vernon type A w/ involvement of b/l Coronary ostia and circumferentially around the root causing severe AI, distally to the Aorto-iliac bifurcation complicated by shock.
-s/p #27 valved conduit and hemiarch replacement, ligation of L and R coronary ostia as they were dissected; bypass grafting to an acute marginal and relocation of previous vein grafts onto acute marginal vein graft.
-The patient was neurologically intact on POD #1 with high pressor/inotrope requirements. The opportunity was taken to place MCS; now s/p Impella 5.5 insertion.
-CRRT started yesterday.
-Loss of Impella pulsatility lead to TTE guided repositioning. Patient was re-opened at the bedside, revealing clot around the right ventricle and SVG that appeared to compress both. The clot was evacuated (05/08/2025).
-Arterial bleeding was observed from the IAN bed, which was clipped and a sternal wire site which was double ligated with good hemostasis (03/08/2025).
-CI dwindled overnight, improved to 2.06. DIRECTOR POWER = 0.84 Wilkes. Delphine = 0.8.
-The patient has had several episodes of hypotension, though to be due to compression of the SVG. The patient was taken to OR for placement of a ringed graft to prevent compression (03/09/2025).
-Patient returned to the OR for ligation of the IAN (persistent bleeding) and re-bypass to address the angulation of the original SVG to Diag, which is thought to be leading to his multiple hypotensive episodes (03/09/2025).
-Continue to wean support as able. I remain concerned for potential pump thrombosis as the patient is not on heparin for obvious bleeding reasons, which then increases this risk. Impella does not show power dips, which is reassuring, and the
patient currently requires MCS to maintain perfusion. There are no good options.
#HFrEF/ICMO
-Acute on chronic in the setting of Type A dissection with moderate/severe AI.
-Weight up 12 kg from baseline.
-Bumetanide gtt started.
-Volume managed by CRRT.
-No role for GDMT at this time.
#Heme
-Anemia (s/p 14 units PRBC's to date).
-Acute, post operative but constellation concerning for hemolysis, possibly indicative of pump thrombosis.
-Check peripheral smear for schistocytes.
-Transfusions as indicated.
-Thrombocytopenia (s/p 6 units of platelets to date).
-Acute (50-60 <-- 75 <-- 83 <-- 72 <-- 50 <-- 84 <-- 106 <-- 131 <-- 205).
-Clearly consumptive, again concerning for hemolysis/pump thrombosis, consider DIC in the context of rising INR.
-LDH remains > 500.
-Coagulopathy (s/p 3 units FFP, 2 units of Cryoprecipitate).
-Acute (hovering around 2).
-Notable in the context of ALI but also concerning for consumptive coagulopathy.
-FFP/Cryo to maintain stable INR.
#CAD
-Chronic, stable.
-S/P CABG x 4 (MAGANA to LAD, SVG to OM1 to LPL, SVG to Diag).
-During operation for Ao dissection, the SVG graft was anastomosed to the SVG to diagonal graft and the LMCA/RCA were ligated to prevent further propagation of the dissection plane.
-The current anatomy is MAGANA to LAD, SVG from Ao graft to SVG to diagnoal, sequential SVG Y-graft from diagonal graft to OM1 to LPL.
-All antiplatelet therapy on hold due to thrombocytopenia/coagulopathy.
#Mitral regurgitation
-Chronic, stable
-S/P MV repair (closure of cleft between P2 and P3, free edge remodeling between P3 and commissure, placement of single [place]-G[place] suture from anterolateral papillary muscle head to P2 and P3, #32 Taylor Physio Flex band annuloplasty, SN [id number])
with Dr. Sullivan, 02/16/2025.
#Tricuspid regurgitation
-Chronic, stable.
-S/P TV repair (Simple tricuspid valve repair with #34 Medtronic Triad band annuloplasty, SN [id number]) with Dr. Sullivan, 02/16/2025.
#Atrial fibrillation
-Persistent, currently in AF.
-Rate/rhythm control with amiodarone, s/p MAZE with Dr. Sullivan, 02/16/2025.
-CHADS2-Vasc = 5 (CHF, HTN, Age x2, vascular disease).
-Anti-thrombotic therapy titrated based on coagulopathy, S/P LAAE (#40 AtriClip, SN [id number]) with Dr. Sullivan, 02/16/2025.
#IRON
-Severe, requiring CRRT.
-Management per nephrology.
#ALI
-Severe, multifactorial.
-Component of shock liver, likely a component of hemolysis.
-Avoid hepatotoxic agents.
Critical Care Time = 40 minutes.
Subjective/Interval History:
Patient returned to OR for bedside hypotension/arrest due to kinking/compression of the SVG graft.
Patient was re-bypassed with SVG from Ao-graft to SVG with sequential SVG Y-graft.
Impella 5.5 remains at P4, Vasopressin at 0.02 with relative stability with some hypotension overnight, but improved this morning.
Weight is up 12 kg from baseline.
Bumetanide 2 mg IV given yesterday. UOP documented at 570 mL.
AST/ALT have plateaued.
Lactate has cleared (now 1.4).
Multiple transfusions (RBC's, platelets, FFP, Cryo).
DATA:
TTE, 03/04/2025:
SUMMARY
1. Moderately reduced LV systolic function. Ejection fraction is 35-40%. Global hypokinesis.
2. S/p mitral valve repair with peak/mean gradients of 15/5 mmHg. Trace mitral valve regurgitation.
3. Moderate/severe aortic regurgitation. PHT approx 250 msec.
4. S/p tricuspid valve repair with mean gradient of 2 mmHg. Mild tricuspid regurgitation. Estimated PASP 38 mmHg, assuming RAP 8 mmHg. Mildly elevated PASP.
5. Compared to 02/19/25: LVEF is stable in 35-40% range, mitral valve and tricuspid valve repairs are stable; aortic regurgitation has progressed from mild/moderate to moderate/severe.
SAJAN, 03/07/2025:
SUMMARY
1. There is a Moses type A DeBakey class I aortic dissection present.
2. Trileaflet aortic valve. Severe aortic regurgitation due to prolapse of the left vs non coronary cusp and aortic dissection.
3. Low normal ventricular systolic function. LVEF 45-50%.
4. S/p tricuspid valve repair. Trace residual tricuspid regurgitation.
5. S/p mitral valve repair. Trace residual mitral regurgitation.
6. Dr. Sullivan (CT surgery) notified of findings at time of study.
CT surgery, 03/07/2025:
Procedure(s) Performed:
1. Ultrasound-guided access using Seldinger technique 2 the right common femoral artery and vein with percutaneous access using a 25 Spanish femoral venous cannula
2. Redo sternotomy with extensive adhesiolysis (Modifier 22 for additional dissection time of 1 hour)
3. Direct aortic cannulation using ultrasound and Seldinger technique with a SAJAN guidance verifying true lumen access
4. Moderate hypothermic circulatory arrest with antegrade cerebral perfusion
5. Hemiarch ascending aortic replacement
6. Aortic root replacement using a 27 mm valved conduit
7. Ligation of left and right coronary ostia as they were dissected coronary bypass grafting to an acute marginal
8. Relocation of previous vein grafts onto this acute marginal vein graft
9. Placement of temporary atrial ventricular pacing wires
10. Transesophageal echocardiography
11. Temporary chest packing, open chest.
Impella Placement, 03/08/2025:
Procedure(s) Performed:
1. The temporary dressing over top of the open chest was removed
2. Placement of atrial pacing wires
3. Anastomosis of a 10 mm straight tube graft off of the ascending aortic graft, graft to graft anastomosis
4. Graft tunneled to the left supra clavicular region between the strap muscles
5. Placement of a 5.5 direct aortic Impella LVAD
6. Chest closure in usual fashion
TTE, 03/08/2025:
SUMMARY
1. TDS.
2. In limited views, left ventricle appears normal sized with severely reduced systolic function. Left ventricle ejection fraction is 25-30% by visual estimation. Global hypokinesis. S/p Impella 5.5 insertion which appears to be appropriately
placed.
3. In limited views right ventricle appears normal sized with mildly reduced systolic function. Right ventricle does appear to expand in diastole.
4. Limited valvular interrogation.
5. Compared to SAJAN earlier in day, overall, no significant change.
Bedside Rexploration, 03/08/2025:
Procedure: Emergency bedside reopening of chest and the loculation of clot ligation of IAN which was the bleeding source, repacking with 1 vaginal pack and Kerlix and replacement of new chest tubes
CT surgery re-exploration, 03/09/2025 (morning):
PROCEDURES:
1. Mediastinal reexploration/irrigation and removal of packing.
2. Repositioning of proximal course of greater saphenous vein graft
with several 6-0 Prolene sutures (placed/subsequently removed).
3. Placement of 6 mm ringed PTFE graft around proximal segment of
greater saphenous vein graft .
4. Replacement of new mediastinal packing (1 vaginal pack and
partial roll of Kerlix; syringe based sternal separation).
5. Reexploration with replacement of new open chest dressing.
CT surgery re-exploration, 03/09/2025 (afternoon):
Procedure(s) Performed:
1. Reopening of temporary chest coverage.
2. Ligation of IAN.
3. Coronary artery bypass grafting x 1 (Aortic Graft to RSVG to RSVG - T-graft).
4. Open vein harvest of the left thigh.
5. Transesophageal echocardiography.
6. Repacking of chest and placement of temporary dressing.
Physical Exam
Vital Signs/Labs
Vital Signs
Temp Pulse Resp BP Pulse Ox
36.6 C 99 16 101/67 97
03/10/25 06:00 03/10/25 06:25 03/10/25 06:00 03/10/25 06:00 03/10/25 06:25
03/08/25 03/09/25 03/10/25
11:59 11:59 11:59
Actual Weight 91.1 kg 98.7 kg 100 kg
PT 24.2 Sec (11.4-14.6) H 03/10/25 04:33
INR 2.16 03/10/25 04:33
APTT 41.2 Sec (23.4-35.0) H 03/10/25 04:33
Magnesium 1.9 mg/dl (1.6-2.3) 03/10/25 04:33
Magnesium Cancelled 03/10/25 04:33
Triglycerides 70 mg/dl (10-149) 03/10/25 04:33
03/04/25
15:44
Hpp-M-Gzwqnkgkyet Pept 2970
Physical Exam
Constitutional: No acute distress and Comfortable
EENT: Anicteric and Moist mucous membranes
Cardiovascular: Rhythm/rate is irregular, Pedal edema present, JVD present and Other (Chest/cardiac exam deferred in light of open chest.)
Respiratory: Other (Exam deferred in light of open chest.)
GI: Soft, Distention absent, Flat, Non tender and Normal bowel sounds
Neuro/Psych: Other (Intubated/sedated.)
Data Reviewed
-
Date of Service: March 10, 2025
Medical Decision Making: Reviewed Test Results, Test Interpretation and Review of Case with other Provider
EKG: Tracing Personally Visualized and interpreted and Report Reviewed by me
Echo: Report Reviewed by me
X-Ray/CT/US/MRI/NUC/PET: Image Personally Visualized and interpreted and Report Reviewed by me
Medical Tests (PFT, Pathology etc): Image Personally Visualized and interpreted and Report Reviewed by me
Labs: Labs Reviewed by me
Old Records: Reviewed
[2025-03-10 07:10] LABS: Glucose - Point of Care 97 mg/dl (70-99)
--- NOTE | 2025-03-10 07:29 | W.PN.ANS.POP ---
Anesthesia Post Operative
- Anesthesia Post Op Note
Vital Signs Stable-See Nursing Note: Yes (Impella/CRRT/inotropic and vasoactive support )
Airway Patent: Yes (Intubated)
Adequate Pain Control: Yes
Change in Mental Status: No (Sedated)
Current Postoperative Nausea & Vomiting: No
Anesthesia Complications: No
General Anesthetic Recall: No
Unplanned Admission: No
Post Op Hydration Adequate: Yes
[2025-03-10] MEDS: NSS (PRESERVATIVE FREE) 10 ML IV (07:56)
[2025-03-10] MEDS: PROTONIX IV 40 MG IV (07:57)
[2025-03-10] MEDS: BACTROBAN 2% OINTMENT 1 APPLIC NASAL ×2 (07:59→19:21)
--- NOTE | 2025-03-10 08:00 | PTCARENOTE ---
Assumed care of patient. Pt assessed while he was lying in bed. Pt intubated and sedated. 8.0 ETT 24cm at the lip. POX 96%. SIMV 40% 16 500 5. Pt not breathing over the vent. Lungs audible anteriorly. Small amount of kang secretions. Mediastinal
chest tubes y-sited to 1 atrium to -20cm suction with no drainage. Left pleural chest tube to -20cm suction draining serosanguineous fluid. Right pleural chest tube draining dark red fluid. +1 intermittent air leak in Right pleural chest tube.
Outputs WNL. Pt opened his eye to painful stimuli. Asked patient to close eyes and reopen, and patient followed commands. Asked patient to squeeze hands, no squeeze noted. PERRLA 2mm brisk. NSR with rates in the 90s. BP supported 101/62 via left
radial alvin. PA pressures 30s/high 10s. CVP 10. CI/CO 2.23/4.64. Heart tones audible. Impella 5.5 @P4. Bilateral radial, brachial, DP and PT pulses all present via doppler. +2 edema to b/l arms and legs. Abdomen soft, round. Absent BS. Buenrostro
catheter intact draining concentrated geovanna urine, inadequate amounts. CRRT running. Chest remains open with ioban dressing in place. Chest tube dressings CDI. Right groin with bumper in place, dressing CDI. Left thigh with Antibacterial dressing
CDI. Left lower leg with antibacterial dressing with small amount of shadowing noted to lower part of bandage. Right IJ cordis with swan floated to 45cm. Left radial alvin, Right radial alvin intact with appropriate waveform. Right femoral alvin
with dampened waveform. All lines flushed, leveled, and zeroed. MAPs correlate. Left femoral trialysis cath intact with CRRT running. Impella 5.5 @39cm. Left AC 18g PIV intact. Right forearm 20g PIV intact. See MAR for medication administration. See
worklist for complete nursing assessment. Plan of care reviewed.
[2025-03-10 08:25] LABS: Glucose - Point of Care 98 mg/dl (70-99)
--- NOTE | 2025-03-10 08:26 | PHA.VAN.FU ---
Vancomycin Assessment / Plan
- Assessment
Hemodialysis Schedule: Other ([facility] @ 2 L/H)
WBC's are: WNL
In the past 24 hrs, patient has been: Afebrile
Concomitant Antimicrobials: cefazolin
- Assessment - Therapeutic Drug Monitoring
Random Level: 16.7 - drawn ~8.5H after 4th dose of 1000mg
- Dosing Plan
Dosing by Level: Re-dose today (Vanc 1000mg BID x2 doses - and 1999)
- Follow Up
Pharmacy will continue to follow.
Vancomycin Follow UP
- -
Patient Age: 74
Patient Sex: Male
Vancomycin Day #: 3 (obtained consult 03/09)
Indication: Prophylaxis (Surg,Hiv,...)
Requesting Provider: Beau Sands
Pertinent Antimicrobial Allergies:
NKDA
Height / Weight:
Height 5 ft 11 in
Actual Weight 100 kg
Pertinent Past Medical History: BMI ~30
- Vital Signs / Lab Results
Temp Pulse Resp BP Pulse Ox
97.3 F 97 16 103/61 96
03/10/25 08:00 03/10/25 08:00 03/10/25 08:00 03/10/25 08:00 03/10/25 08:00
Lab Results - Hematology
03/07/25 03/08/25 03/08/25
10:08 04:48 10:29
WBC 10.3 18.5 H 12.1 H
03/08/25 03/08/25 03/08/25
14:06 16:47 20:13
WBC 11.2 H 8.6 8.5
03/09/25 03/09/25 03/09/25
00:18 03:41 05:41
WBC 12.0 H 12.5 H 12.3 H
03/09/25 03/09/25 03/09/25
09:30 11:27 13:30
WBC Cancelled 11.6 H Cancelled
03/09/25 03/09/25 03/09/25
15:03 17:30 18:38
WBC 11.0 H Cancelled 10.8
03/09/25 03/10/25 03/10/25
21:30 00:23 04:33
WBC Cancelled 11.1 H Cancelled
03/10/25
04:33
WBC 10.2
Lab Results - Chemistry
03/07/25 03/07/25 03/07/25
10:08 11:22 19:09
BUN Cancelled 27 H 26 H
Creatinine Cancelled 0.6 L 0.8
Estimated Creat Clear Cancelled 113 85
Albumin Cancelled 2.4 L
03/08/25 03/08/25 03/08/25
04:48 10:29 14:06
BUN 28 H 34 H 37 H
Creatinine 1.6 H 1.3 1.4 H
Estimated Creat Clear 42 52 49
Albumin 1.6 L 1.7 L 1.9 L
03/08/25 03/08/25 03/09/25
16:47 20:13 00:18
BUN 35 H 28 H 33 H
Creatinine 1.7 H 1.3 1.5 H
Estimated Creat Clear 40 52 45
Albumin 1.9 L 1.2 L 1.9 L
03/09/25 03/09/25 03/09/25
03:41 09:30 11:27
BUN 32 H Cancelled 34 H
Creatinine 1.4 H Cancelled 1.5 H
Estimated Creat Clear 49 Cancelled 51
Albumin 2.0 L Cancelled
03/09/25 03/09/25 03/09/25
13:30 17:08 17:30
BUN Cancelled 35 H Cancelled
Creatinine Cancelled 1.5 H Cancelled
Estimated Creat Clear Cancelled 51 Cancelled
Albumin Cancelled Cancelled
03/09/25 03/09/25 03/10/25
20:04 21:30 00:23
BUN 32 H Cancelled 32 H
Creatinine 1.3 Cancelled 1.2
Estimated Creat Clear 59 Cancelled 64
Albumin Cancelled
03/10/25 03/10/25 03/10/25
04:33 04:33 04:33
BUN 29 H Cancelled
Creatinine 1.2 Cancelled
Estimated Creat Clear 64
Albumin
03/10/25
04:33
BUN
Creatinine
Estimated Creat Clear Cancelled
Albumin
03/07/25 03/08/25 03/08/25
20:42 04:48 10:29
Lactic Acid 11.2 H* 18.1 H* 12.5 H*
03/08/25 03/08/25 03/08/25
11:44 14:06 15:30
Lactic Acid 12.6 H* 12.4 H* Cancelled
03/08/25 03/08/25 03/08/25
16:47 20:13 22:46
Lactic Acid 12.6 H* 8.5 H* 8.1 H*
03/09/25 03/09/25 03/09/25
00:18 01:30 03:41
Lactic Acid 7.7 H* Cancelled 6.2 H*
03/09/25 03/09/25 03/09/25
05:30 05:41 06:00
Lactic Acid Cancelled 5.1 H* Cancelled
03/09/25 03/09/25 03/09/25
09:30 11:27 12:08
Lactic Acid Cancelled 3.1 H 3.2 H
03/09/25 03/09/25 03/09/25
13:30 15:30 17:08
Lactic Acid Cancelled Cancelled 2.3 H
03/09/25 03/09/25 03/09/25
17:30 19:30 20:03
Lactic Acid Cancelled Cancelled 2.1 H
03/09/25 03/09/25 03/10/25
21:30 23:30 00:23
Lactic Acid Cancelled Cancelled 1.5
03/10/25
04:33
Lactic Acid 1.4
Therapeutic Drug Monitoring
Random Vancomycin 16.7 ug/ml 03/10/25 04:33
--- NOTE | 2025-03-10 08:30 | W.PN.INTV ---
Today's Communication / Plan
Recommendations
Continue mechanical ventilation
CRRT per nephrology
Vasopressors + inotropes
Goal MAP>65, MVO2>60-65 and CI>2
Goal PAD<18
Pt is critically ill with poor prognosis, although he is improved today compared to yesterday
Clinical Nurse service will continue to follow
Assessment
-
Assessment: 74-year-old male with a past medical history of multivessel CAD s/p CABG, history of severe MR s/p radical mitral valve repair, severe tricuspid valve insufficiency s/p tricuspid valve repair, chronic HFmrEF, hyperlipidemia,
hypertension, paroxysmal A-fib on Eliquis s/p open left atrial maze + left atrial appendage exclusion, hypothyroidism and history of colon adenoma who presents with shortness of breath, poor appetite and ankle swelling. Patient recently had a
cardiothoracic surgery on 02/16 after proceeding left + right heart catheterization on 02/04/2025 showed triple-vessel CAD with mildly elevated biventricular filling pressures. Patient was found to have acute postoperative blood loss anemia,
postoperative coagulopathy and he improved and was able to be discharged home on 02/22/2025. He is now returning with shortness of breath with exertion, lower extremity edema and imaging consistent with acute decompensated heart failure. IV Lasix
started. Echo performed on 03/04/2025 showed reduced EF now at 35-40%, global hypokinesis, with worsening aortic regurgitation from mild/moderate to moderate/severe.He was also started on metoprolol due to NSVT. Given the worsening aortic
insufficiency, a SAJAN was performed on 03/07/2025 showing a Carney type a DeBakey class I aortic dissection with severe aortic regurgitation due to left versus noncoronary cusp prolapse and aortic dissection. CT surgery notified and a stat CT
angio chest/abdomen/pelvis was performed confirming an aortic dissection extending throughout the aorta beginning at the root and extending to the aortic bifurcation. There also were small bilateral pleural effusions with other postoperative
changes along the sternum with a possible small hematoma. Patient brought to the OR and underwent a redo sternotomy with extensive adhesiolysis, hemiarch ascending aortic replacement, aortic root replacement, ligation of left and right coronary
ostia as they were dissected, and previous vein grafts were relocated onto the acute marginal vein graft, and his chest was left open. Patient transferred to the CVICU postoperatively, and loom blower services consulted for additional
management/recommendations.
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
(02/16/2025), chronic HFmrEF, hyperlipidemia, hypertension, paroxysmal A-fib s/p open left atrial maze + EVI�exclusion (02/16/2025) on Eliquis, mild aortic valve insufficiency secondary to leaflet prolapse, hypothyroidism, history of colon adenoma
Impression:
#Type A aortic dissection with resultant severe aortic regurgitation s/p redo sternotomy with extensive adhesiolysis, moderate hypothermic circulatory arrest, hemiarch ascending aortic replacement, aortic root replacement, ligation of left and right
coronary ostia as they were dissected followed by relocation of previous vein grafts onto acute marginal vein graft, and chest left open (POD #3)
#Cardiogenic shock now on multiple vasopressors and placement of a 5.5 direct aortic Impella LVAD with subsequent chest closure in usual fashion (POD #2)
#Cardiac tamponade with cardiovascular collapse s/p emergent bedside reopening of chest with ligation of IAN with multiple clot evacuation and repacking with vaginal pack + Kerlix and replacement chest tubes (POD #2)
#Mediastinal reexploration/irrigation and removal packing with repositioning of proximal course of GSV graft with placement of 6 mm ringed PTFE graft around proximal segment of GSV graft with replacement of new mediastinal packing and new open chest
dressing placed (POD#2)
#Kinking of single vein graft s/p ligation of IAN + CABG x 1 with aortic Graft to RSVG to RSVG - T-graft (POD #1)
#Ventilator dependent respiratory failure with acute hypoxia
#IRON with proximal right renal artery narrowing with decreased right kidney perfusion (per CTA chest/abdomen/pelvis from 03/07/2025) currently on CRRT
#Postoperative coagulopathy
#Lactic acidosis
#Acute HFrEF exacerbation (present on admission)
#Shock liver with hyperbilirubinemia
#Chronic anemia (baseline 9.5-11 g/dL)
#Multivessel CAD s/p CABG x 4, severe mitral valve insufficiency s/p radical mitral valve repair, severe tricuspid valve insufficiency (functional) s/p simple tricuspid valve repair (all on 02/16/2025)
#Paroxysmal A-fib s/p open left atrial maze + EVI�exclusion (02/16/2025) on Eliquis
Plan:
Ventilator settings reviewed
FiO2 will be weaned to maintain SpO2 >90-94%
Minute ventilation will be adjusted
Arterial blood gases will be monitored
Spontaneous breathing trial will be attempted with hopeful extubation after anesthesia/sedation wear off
prn nebulized bronchodilators - not currently bronchospastic
Pulmonary artery catheter parameters will be followed
Pressors/antihypertensive/inotropes/diuretics will be provided as needed
Continue LV Impella and wean down as tolerated, per CT surgery team + cardiology - -> given concern for pump thrombosis, ideally the Impella should be removed (per Dr. Hogan)
Maintain MAP>65
Replete electrolytes with K>4, Mg>2
Lactate is now <2mmol/L - continue trending per CT surgery team
Trend MVO2 as well as CI, with goal >65 and >2, respectively
Continue amio gtt
Monitor chest tube output (bilateral pleural chest tubes + mediastinal chest tubes x 2)
Monitor hemoglobin
Monitor platelet count and coags
Transfuse blood products as needed to maintain Hb>7g/dL, plt>50k (given post-operative status)
CT surgery managing chest tubes
Monitor blood sugar to maintain euglycemia with goal BG 110-140
Insulin drip per protocol
Nephrology consulted and given his reduction in UOP since 03/08 - continue CRRT
Aspiration precautions
VAP prevention protocol
DVT prophylaxis: Eliquis currently on hold (last dose morning of 03/07/2025)
Early nutrition when able
Early mobilization
Patient is critically ill with poor prognosis; continue management in CVICU - Clinical Nurse service will continue to follow along.
Critical care statement: A total of 47 minutes of critical care time was provided for this patient today. This includes management of ventilator, spontaneous breathing trial, arterial blood gases, pressors, of unstable vital signs, evaluation of the
patient at bedside, reviewing the patient's pertinent medical records including radiographs, microbiology, laboratory evaluations, and discussion with primary team and critical care nursing.
Data:
CTA chest/abdomen/pelvis with/without contrast 03/07/2025:
1.There is an aortic dissection extending throughout the aorta beginning at the root and extending to the aortic bifurcation consistent with Carney type A dissection.The aortic branch arteries appear to be supplied off the true lumen. There is
associated moderate narrowing of the descending thoracic aorta and proximal abdominal aorta. Additionally there is narrowing at the proximal right renal artery with associated asymmetrically decreased perfusion of the right kidney.
2. Small bilateral pleural effusions with adjacent atelectasis.
3. Postoperative changes along the sternum with a possible small hematoma.
CXR 03/09/2025:
Stable position of the endotracheal tube, [place]-Fabio catheter, Impella device, and bilateral chest tubes.
A sternal retractor again projects over the chest.
No focal consolidation, pleural effusion, or pneumothorax. Sternotomy wires and cardiac valve prostheses. Stable cardiomediastinal silhouette. Chronic degenerative changes of the spine.
Subjective Dataa
Subjective Data
Date of Service:
Date of Service: March 10, 2025
Chief Complaint: Clinical Nurse Follow Up
Subjective:
Patient went back to the CVOR last night with ligation of IAN, CABG x 1 with aortic graft to RSVG to RSVG�T-graft, and repacking of the chest and placement of temporary dressing.
Patient was seen this morning. Remains on CRRT. Remains intubated on SIMV at 16/500/40%/5 with PIP 30 cmH2O, breathing at 16 breaths/min and VTe at 422 mL. Currently on Levophed at 4 mcg/min, insulin drip at 0.6 units/hr, dobutamine at 5
mcg/kg/min, and vasopressin at 0.015 units/min. Sedated on propofol at 20 mcg/kg/min and fentanyl at 100 mcg/hr. Also on amiodarone at 0.5 mg/min. Heart rate 97, BP via left radial A-line: 116/65, right femoral A-line: 96/65, and right radial
A-line: 117/54. PAP 34/22 and CO/CI: 5.21/2.51, respectively. He is saturating 94% with BP via NIBP: 92/67. Currently on Impella at P4 with output: 2.5 L/min. Mediastinal chest tubes x 2+ bilateral pleural chest tubes in place.
Review of Systems
General: Unobtainable - Pat Unresp (Sedated + intubated)
Objective Data
Data Reviewed
Vital Signs / I&O / Oxygen:
Vital Signs
Temp Pulse Resp BP Pulse Ox
97.7 F 97 16 92/67 95
03/10/25 14:00 03/10/25 14:00 03/10/25 14:00 03/10/25 14:00 03/10/25 14:00
Intake and Output
03/09/25 03/10/25 03/11/25
06:59 06:59 06:59
Intake Total 7633.5 / 7834.1 3544.7 / 3667.0 1288.5 / 1288.5
Output Total 3727 / 3845 3186 / 3313 1314 / 1314
Balance 3906.5 / 3989.1 358.7 / 354.0 -25.5 / -25.5
SaO2 [A/C] 98
SaO2 [SIMV] 97
SaO2 95
Physical Exam
General: Respiratory Distress (negative), Comfortable, Chills (negative) and Other (Intubated/sedated)
HEENT: Normocephalic, Anicteric and Other (ETT in place)
Cardiovascular: S1-S2 and Peripheral Edema (negative)
Respiratory: Wheeze (negative), Crackles (Anteriorly on both lung hanna), Rhonchi (negative), Non-Labored Respirations, ET Tube (Mechanical breath sounds heard bilaterally) and Other (Anterior chest packing in place)
GI: Soft, Non Distended, Non Tender and Normal Bowel Sounds
Neurology: Tremors (negative) and Other (Sedated)
Skin: Warm, Dry, Cyanosis (negative) and Jaundice (negative)
Labs/Micro/Reports
Laboratory Results
03/09/25 03/09/25 03/09/25
05:30 17:08 20:03
PT 28.1 H
INR 2.58
APTT 39.1 H
pH Cancelled 7.43 7.48 H
pCO2 Cancelled 45 40
pO2 Cancelled 238 H 107
HCO3 Cancelled 29.9 H 29.8 H
O2 Delivery Level Cancelled
03/10/25 03/10/25 03/10/25
00:23 04:33 08:24
PT 24.8 H 24.2 H
INR 2.19 2.16
APTT 42.4 H 41.2 H
pH 7.48 H 7.45 7.43
pCO2 41 43 44
pO2 114 H 102 124 H
HCO3 30.5 H 29.9 H 29.2 H
O2 Delivery Level Vent Not Reportable
03/10/25
11:43
PT 21.4 H
INR 1.84
APTT 44.9 H
pH 7.42
pCO2 47
pO2 93
HCO3 30.5 H
O2 Delivery Level
[2025-03-10 08:36] LABS: B.E. 4.4 mmol/L; HCO3 29.2 mmol/L (21-28); O2 Saturation % 99.6 % (94-98); PCO2 44 mmHg (35-48); PO2 124 mmHg (83-108); Potassium 4.1 mMOL/L (3.5-5.1); Sodium 139 mMOL/L (136-145)
[2025-03-10 09:21] LABS: Glucose - Point of Care 91 mg/dl (70-99)
[2025-03-10] MEDS: VANCOCIN 200 IV ×2 (09:24→19:52)
[2025-03-10] MEDS: DOBUTREX 250 IV (09:24)
[2025-03-10 09:34] LABS: Blood Urea Nitrogen 28 mg/dl (9-20); Calcium 8.0 mg/dl (8.4-10.2); Carbon Dioxide 31 mmol/L (22-30); Chloride 109 mmol/L (98-107); Estimated Creatinine Clearance 70 ml/min; Glucose 91 mg/dl (70-99); Magnesium 2.4 mg/dl (1.6-2.3); Potassium 3.9 mmol/L (3.5-5.1); Sodium 137 mmol/L (135-145); eGFR > 60.00
--- NOTE | 2025-03-10 09:45 | W.PN.NEPH.PH ---
Today's Communication / Plan
-
diurese
Assessment/Plan
-
Impression:
Acute type A Aortic dissection with involvement of bilateral coronary ostia and circumferentially around the root with operative repair on 03/08/25
Acute kidney injury
Postoperative cardiogenic shock now on inotropic support
History of CABG x 4 mitral valve repair tricuspid valve repair maze and EVI exclusion on 02/16/2025
Status post Impella placement on 03/08/2025
Lactic acidosis 12.4
Vent dependent respiratory failure
NSVT
Ischemic cardiomyopathy with EF of 45 to 50%
Atrial fibrillation
History of hypertension
Plan:
- CRRT pressors, ionotropic support (dobutamine), and cardiogenic shock with Impella device placement ,requiring multiple blood product infusions and with evolving lactic acidosis
- volume removal EVEN on CRRT
UO increasing 580 over 24 hrs
will bolus lasix 80 mg if good response then we can start gtt or cont with TID bolus
Pressors requirements lessening
- prognosis extremely guarded
Total Time Spent with Patient (in minutes): 33
-
-
Date of Service: March 10, 2025
CC / HPI / ROS
-
Chief Complaint:
aortic disection
History of Present Illness:
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
Seen earlier today postoperatively washout
Review of Systems:
nooliguric
Pressor support remains
Labs
-
Labs:
eGFR > 60.00 03/10/25 08:24
Phosphorus 2.9 mg/dl (2.5-4.5) 03/10/25 04:33
Omp-S-Evhthxjgtev Pept 2970 pg/ml 03/04/25 15:44
Albumin Cancelled 03/09/25 21:30
Physical Exam
-
Vital Signs:
Vital Signs
Temp Pulse Resp BP Pulse Ox
96.7 F L 98 16 103/61 98
03/10/25 09:23 03/10/25 09:15 03/10/25 09:00 03/10/25 08:00 03/10/25 09:15
--- NOTE | 2025-03-10 09:48 | W.PN.NEPH.HD ---
Assessment
-
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
Progress Note - Hemodialysis
-
Date of Service: March 10, 2025
[2025-03-10] MEDS: LASIX 80 MG IV (09:52)
[2025-03-10 09:54] LABS: Hematocrit 24.1 % (39.0-52.0); Hemoglobin 8.3 g/dL (13.0-18.0); Mean Corp Hgb Conc. 34.4 g/dL (33.0-37.0); Mean Corpuscular Volume 88.6 fL (80.0-94.0); Platelet Count 49 10^3/uL (130-400); Red Cell Dist. Width 16.0 % (11.5-14.5)
[2025-03-10 10:09] LABS: Glucose - Point of Care 105 mg/dl (70-99)
[2025-03-10 11:06] LABS: Glucose - Point of Care 111 mg/dl (70-99)
--- NOTE | 2025-03-10 11:06 | CM ---
Chart reviewed. Patient still remains in critical condition. Patient's at bedside. Patient lives in a [address], [facility], ambulates with a SPC. Patient will need functional assessment to determine discharge needs. CM to follow
--- NOTE | 2025-03-10 12:00 | PTCARENOTE ---
Pt reassessed. Remains intubated and sedated on propofol and fentanyl gtts. POX 97%. Responds to painful stimuli. NSR with PVCs with rates in the 90s. BP supported with levo and vaso. CI/CO 2.51/5.21. PA pressures 30s/ansg74u. CVP 9. Impella @P4. UO
adequate since lasix administration. Surgical sites stable and unchanged. CT output WNL. all lines remain intact. Since last assessment, 1unit platelets infused. Pt's at bedside, updated by CTNP.
[2025-03-10 12:02] LABS: B.E. 5.4 mmol/L; HCO3 30.5 mmol/L (21-28); O2 Saturation % 98.9 % (94-98); PCO2 47 mmHg (35-48); PO2 93 mmHg (83-108); Potassium 3.9 mMOL/L (3.5-5.1); Sodium 139 mMOL/L (136-145)
[2025-03-10 12:13] LABS: INR 1.84; PT 21.4 Sec (11.4-14.6)
[2025-03-10 12:14] LABS: APTT 44.9 Sec (23.4-35.0)
[2025-03-10 12:21] LABS: Blood Urea Nitrogen 27 mg/dl (9-20); Calcium 7.8 mg/dl (8.4-10.2); Carbon Dioxide 32 mmol/L (22-30); Chloride 108 mmol/L (98-107); Estimated Creatinine Clearance 70 ml/min; Glucose 91 mg/dl (70-99); LDH 532 U/L (120-246); Magnesium 2.2 mg/dl (1.6-2.3); Potassium 3.8 mmol/L (3.5-5.1); Sodium 136 mmol/L (135-145); eGFR > 60.00
[2025-03-10 12:24] LABS: Hematocrit 24.4 % (39.0-52.0); Hemoglobin 8.1 g/dL (13.0-18.0); Mean Corp Hgb Conc. 33.2 g/dL (33.0-37.0); Mean Corpuscular Volume 90.0 fL (80.0-94.0); Platelet Count 64 10^3/uL (130-400); Red Cell Dist. Width 16.2 % (11.5-14.5)
[2025-03-10] MEDS: FERRLECIT 110 MG IV (13:04)
[2025-03-10 13:06] LABS: Glucose - Point of Care 92 mg/dl (70-99)
[2025-03-10] MEDS: LEVOPHED 258 MG IV (14:50)
[2025-03-10] MEDS: RFP-401 HD Soln (K+ 4 mEq/L) 20000 ML CRRT-IRR (14:51)
[2025-03-10 15:12] LABS: Glucose - Point of Care 79 mg/dl (70-99)
[2025-03-10] MEDS: LASIX 100 MG IV (15:29)
--- NOTE | 2025-03-10 16:00 | PTCARENOTE ---
Pt reassessed. Remains on levo and vaso support for BP. Impella remains at P4. NSR with occasional PVCs with rates in the 90s. POX 97%. Thick kang secretions increasing via ETT, suctioned as indicated. CRRT continues to run. UO adequate following
lasix push. CT output WNL. Pt will respond to painful stimuli. No acute changes from previous assessment.
[2025-03-10 16:13] LABS: B.E. 4.3 mmol/L; HCO3 29.7 mmol/L (21-28); O2 Saturation % 99.0 % (94-98); PCO2 48 mmHg (35-48); PO2 87 mmHg (83-108); Potassium 4.1 mMOL/L (3.5-5.1); Sodium 138 mMOL/L (136-145)
[2025-03-10] MEDS: LASIX 50 IV (16:16)
[2025-03-10 16:27] LABS: Hematocrit 25.0 % (39.0-52.0); Hemoglobin 8.3 g/dL (13.0-18.0); Mean Corp Hgb Conc. 33.2 g/dL (33.0-37.0); Mean Corpuscular Volume 90.9 fL (80.0-94.0); Platelet Count 60 10^3/uL (130-400); Red Cell Dist. Width 16.4 % (11.5-14.5)
[2025-03-10 16:29] LABS: INR 1.85; PT 21.9 Sec (11.4-14.6)
[2025-03-10] MEDS: NSS IV (16:29)
[2025-03-10 16:30] LABS: APTT 52.8 Sec (23.4-35.0)
[2025-03-10 16:44] LABS: Blood Urea Nitrogen 26 mg/dl (9-20); Calcium 7.8 mg/dl (8.4-10.2); Carbon Dioxide 32 mmol/L (22-30); Chloride 108 mmol/L (98-107); Estimated Creatinine Clearance 70 ml/min; Glucose 91 mg/dl (70-99); Magnesium 2.0 mg/dl (1.6-2.3); Potassium 3.9 mmol/L (3.5-5.1); Sodium 134 mmol/L (135-145); eGFR > 60.00
[2025-03-10 17:13] LABS: Glucose - Point of Care 94 mg/dl (70-99)
[2025-03-10 17:13] LABS: Glucose - Point of Care 99 mg/dl (70-99)
[2025-03-10 18:07] LABS: Glucose - Point of Care 95 mg/dl (70-99)
[2025-03-10] MEDS: SODIUM BICARBONATE 1025 MEQ INF CATH (18:10)
[2025-03-10 18:31] LABS: LDH 527 U/L (120-246)
[2025-03-10 18:59] LABS: Glucose - Point of Care 94 mg/dl (70-99)
--- NOTE | 2025-03-10 20:00 | PTCARENOTE ---
Assumed care of the patient at 1900. Patient in bed, intubated/sedated, PERRL 2 cm, responds to voice and tactile stimulation. NSR on CM, rates 90's; AV wires present to pacer box set to DDD 40/12/15/0.4/0.8, no pacing spikes noted on the monitor;
heart tones audible, Impella 5.5 @ 39 in the L neck to ascending aorta at level P4; +2 generalized nonpitting edema, all pulses present via Doppler. #8.0 ETT 24@ the L lip, SIMV mechanical ventilation 40%/16/500/5 satting 95%+, lungs with coarse
crackles and rhonchi, lung expansion symmetrical, thick kang secretions via endotracheal suctioning; mouth care provided; CTx4 to -20 cm wall suction; intermittent +1 air leak in R pleural, tidaling noted in med x2, otherwise no crepitus noted.
Abdomen SNT, rounded, extremely hypoactive BS. Buenrostro present draining clear, yellow urine; CRRT CVVHD via L femoral dialysis catheter, see work list for hourly data - day 3 of therapy. MS open with packing material and Ioban intact, CT dressing CDI,
R groin with bumper in place - transparent dressing CDI, older RSVG CDI SNIPPER and well approximated, L distal medial thigh Aquacel CDI, medial lebron with Aquacel CDI with a small amount of old drainage. RIJ Cordis with Noel @ 48, arterial line x 3 in
the B/L radial and R femoral artery, L fem trialysis catheter with a pigtail, PIV x2; all applicable lines leveled, zeroed, and flushed, correlating on the monitor. Pt on insulin, levo, vaso, dobut, amio, lasix, fent, and prop. See work list for
nursing interventions and titration data.
[2025-03-10 20:01] LABS: Glucose - Point of Care 98 mg/dl (70-99)
[2025-03-10 20:08] LABS: B.E. 4.9 mmol/L; HCO3 30.8 mmol/L (21-28); O2 Saturation % 97.6 % (94-98); PCO2 52 mmHg (35-48); PO2 75 mmHg (83-108); Potassium 4.1 mMOL/L (3.5-5.1); Sodium 138 mMOL/L (136-145)
[2025-03-10 20:13] LABS: Hematocrit 26.1 % (39.0-52.0); Hemoglobin 8.6 g/dL (13.0-18.0); Mean Corp Hgb Conc. 33.0 g/dL (33.0-37.0); Mean Corpuscular Volume 91.6 fL (80.0-94.0); Platelet Count 60 10^3/uL (130-400); Red Cell Dist. Width 16.3 % (11.5-14.5)
[2025-03-10 20:28] LABS: Blood Urea Nitrogen 24 mg/dl (9-20); Calcium 7.7 mg/dl (8.4-10.2); Carbon Dioxide 32 mmol/L (22-30); Chloride 108 mmol/L (98-107); Estimated Creatinine Clearance 70 ml/min; Glucose 93 mg/dl (70-99); Magnesium 2.0 mg/dl (1.6-2.3); Potassium 4.0 mmol/L (3.5-5.1); Sodium 138 mmol/L (135-145); eGFR > 60.00
[2025-03-10 22:06] LABS: Glucose - Point of Care 102 mg/dl (70-99)
[2025-03-10] MEDS: NITRO-BID 1 INCH TOPICAL (23:55)
[2025-03-10 23:58] LABS: Glucose - Point of Care 97 mg/dl (70-99)
[2025-03-11] VITALS (12 sets, daily range): BP systolic 76–110; BP diastolic 57–74; BMI 31.5
--- NOTE | 2025-03-11 | PTCARENOTE ---
No significant changes at this time. Pt remains intubated/sedated, gtts as documented in the work list. Pt pressures decrease with nursing intervention. Calming environment promoted. Levo high of 6 and lowest 3, see flowsheet. SR on monitor, no
ectopy, SpO2 95%+, labs drawn and sent per orders, surgical sites stable, peripheral/central lines as previously stated. Lab results reported to CVNP.
[2025-03-11] MEDS: SUBLIMAZE 100 IV ×3 (00:04→22:11)
[2025-03-11 00:17] LABS: B.E. 3.1 mmol/L; HCO3 28.9 mmol/L (21-28); O2 Saturation % 99.2 % (94-98); O2 Therapy VENT; PCO2 50 mmHg (35-48); PO2 126 mmHg (83-108); Potassium 4.1 mMOL/L (3.5-5.1); Sodium 138 mMOL/L (136-145)
[2025-03-11 00:31] LABS: INR 1.60; PT 19.6 Sec (11.4-14.6)
[2025-03-11 00:32] LABS: APTT 51.1 Sec (23.4-35.0)
[2025-03-11 00:44] LABS: Blood Urea Nitrogen 24 mg/dl (9-20); Calcium 7.7 mg/dl (8.4-10.2); Carbon Dioxide 32 mmol/L (22-30); Chloride 109 mmol/L (98-107); Estimated Creatinine Clearance 70 ml/min; Glucose 94 mg/dl (70-99); Magnesium 2.0 mg/dl (1.6-2.3); Potassium 4.2 mmol/L (3.5-5.1); Sodium 139 mmol/L (135-145); eGFR > 60.00
[2025-03-11 00:49] LABS: Hematocrit 26.2 % (39.0-52.0); Hemoglobin 8.5 g/dL (13.0-18.0); Mean Corp Hgb Conc. 32.4 g/dL (33.0-37.0); Mean Corpuscular Volume 93.2 fL (80.0-94.0); Platelet Count 57 10^3/uL (130-400); Red Cell Dist. Width 16.5 % (11.5-14.5)
--- NOTE | 2025-03-11 00:52 | W.PN.CT ---
Today's Communication / Plan
-
N: sedate prop/fent
C: Currently NSR, CO 5.58 CI 2.68, RAP 10 PA 36/18 SVR 874, Levo @ 6, Vaso @ 0.015, Dobut @ 5, Amio @ 0.5 for afib 03/11. Impella 5.5 @ P4, shaheed cara. CTs: 2m 35/65 cc, L Pl 10/120 cc, R Pl 150/265 cc out in 12/24 hrs. statin held. keep PW
P: SIMV 16/500/40/5, PRN nebs, no SBT yet, ABG this AM 7.38/49/81/29
GI: PPI for ppx
/FEN: CRRT 4k bath 250 cc/hr BF, added lasix gtt 10 cc/hr, UOP 285/815 cc in 12/24 hrs. Lytes closely followed.
Heme: ASA held. Hgb, Plt , LDH in the 500s, goal for Plt > 50, Hgb > 8, watching for hemolysis
ID: open chest, vanco + cefazolin for ppx
Endo: insulin gtt, continue Synthroid
Assessment / Plan
-
Assessment:
-S/p Emergent Redo sternotomy with extensive adhesiolysis (Modifier 22 for additional dissection time of 1 hour)/Hemiarch ascending aortic replacement/ Aortic root replacement using a 27 mm valved conduit/Ligation of left and right coronary ostia as
they were dissected coronary bypass grafting to an acute marginal/Relocation of previous vein grafts onto this acute marginal vein graft/Temporary chest packing, open chest, by Dr. Sullivan, 03/07/25, pod#4
-S/p placement of a 5.5 direct aortic Impella LVAD on 03/08/[address] Sullivan
-Cardic tamponade/ Cardiovascular collapse- s/p Emergency bedside reopening of chest and the evacuation of clot; ligation of IAN, which was the bleeding source; repacking with 1 vaginal pack and Kerlix; replacement of new chest tubes by Dr. Sullivan on
03/08/25
S/p�mediastinal�reexploration/irrigation and placement of�6mm�ringed PTFE graft around the greater�saphaenous�graft. ���S/P�Emergent�Ligation of IAN, Coronary artery bypass grafting x 1 (Aortic Graft to RSVG to RSVG - T-graft)�03/09
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
-Worsening of aortic valve insufficiency to severe secondary to dissection
-Acute on chronic congestive heart failure with volume overload secondary to new aortic valve insufficiency
-Hypertension
-Hyperlipidemia
-Hypothyroidism
-AFIB on Eliquis
-Ischemic CM
-Recent cardiac surgery over 20 days ago
-Mitral valve insufficiency status post repair
-Tricuspid insufficiency status post repair
-Coronary artery disease status post CABG
-S/P CABG x 4, MV repair, TV repair, MAZE, and EVI exclusion, Dr. Sullivan 02/16/25, Readmitted for SOB on 03/04
-Acute intraop/postop blood loss/Anemia (transfused 2u PRBC's)
-Acute intraop and postop coagulopathy (Administered 10mg Factor VII); chest packed and kept opened
-Acute postop Pulmonary insufficiency
-Acute postop Metabolic Acidosis, followed by metabolic alkalosis
-Acute postop Lactic acidosis
-IRON
-Cardiac tamponade 03/08/25
Subjective
Procedure
S/p Emergent Redo sternotomy with extensive�adhesiolysis�(Modifier 22 for additional dissection time of 1 hour)/Hemiarch ascending aortic replacement/ Aortic root replacement using a�27 mm�valved conduit/Ligation of left and right coronary ostia as
they were dissected coronary bypass grafting to an acute marginal/Relocation of previous vein grafts onto this acute marginal vein graft/Temporary chest packing, open chest, by Dr. Sullivan,
-
Date of Service: March 11, 2025
Objective Data
-
PT 19.6 Sec (11.4-14.6) H 03/11/25 00:08
INR 1.60 03/11/25 00:08
APTT 51.1 Sec (23.4-35.0) H 03/11/25 00:08
Vital Signs
Vital Signs
Temp Pulse Resp BP Pulse Ox
97.5 F 95 16 90/64 96
03/11/25 00:00 03/11/25 00:10 03/11/25 00:00 03/11/25 00:00 03/11/25 00:10
CT Intake/Output/Weight
03/10/25 03/10/25 03/11/25
06:59 18:59 06:59
Intake Total 2067.2 / 3667.0 1679.5 / 2428.6 749.1 / 2428.6
Output Total 1748 / 3313 1874 / 2591 717 / 2591
Balance 319.2 / 354.0 -194.5 / -162.4 32.1 / -162.4
SaO2: 96
Physical Exam
-
General: Other (RASS -2 to -3)
Cardiovascular: Regular rate & rhythm and Rub
Respiratory: Clear, Equal and Rhonchi
Sternum: Other (open chest, dressing clean/intact)
Extremities: Edema +2
Data Reviewed
-
Lab Results: Results Reviewed
Medications: Active Meds Reviewed
Chest X-Ray: Report Reviewed
ECG: Report Reviewed
[2025-03-11 01:25] LABS: LDH 506 U/L (120-246)
[2025-03-11] MEDS: PITRESSIN 100 IV ×2 (01:53→18:08)
[2025-03-11] MEDS: SYNTHROID TUBE ×2 (01:54→19:41)
[2025-03-11 02:06] LABS: Glucose - Point of Care 98 mg/dl (70-99)
[2025-03-11] MEDS: ANCEF 5 IV ×3 (02:07→17:39)
[2025-03-11] MEDS: DIPRIVAN 100 IV ×3 (03:40→21:06)
[2025-03-11 03:58] LABS: Glucose - Point of Care 99 mg/dl (70-99)
--- NOTE | 2025-03-11 04:10 | PTCARENOTE ---
Patient assessment generally unchanged from previously. Levo as high as 8 for hypotension, now 7. Continued thick kang secretions via ETT. Labs drawn and sent, await results. CO/CI 5.58/2.68, HR 90's, no ectopy, pressures correlating via alvin x3.
[2025-03-11 04:12] LABS: B.E. 3.3 mmol/L; HCO3 29.0 mmol/L (21-28); O2 Saturation % 97.9 % (94-98); PCO2 49 mmHg (35-48); PO2 81 mmHg (83-108); Potassium 4.3 mMOL/L (3.5-5.1); Sodium 137 mMOL/L (136-145)
[2025-03-11 04:13] LABS: O2 Therapy VENT
[2025-03-11 04:25] LABS: INR 1.60; PT 19.5 Sec (11.4-14.6)
[2025-03-11 04:26] LABS: APTT 51.9 Sec (23.4-35.0); Fibrinogen 220 MG/DL (199-459)
[2025-03-11 04:29] LABS: Hematocrit 26.0 % (39.0-52.0); Hemoglobin 8.4 g/dL (13.0-18.0); Mean Corp Hgb Conc. 32.3 g/dL (33.0-37.0); Mean Corpuscular Volume 94.2 fL (80.0-94.0); Platelet Count 59 10^3/uL (130-400); Red Cell Dist. Width 16.8 % (11.5-14.5)
[2025-03-11 04:35] LABS: D-Dimer 18.11 ug/mlFEU (0.00-0.50)
[2025-03-11 04:41] LABS: ALT (SGPT) 156 U/L (0-50); AST (SGOT) 419 U/L (17-59); Albumin 1.9 g/dl (3.5-5.0); Alkaline Phosphatase 152 U/L (38-126); Blood Urea Nitrogen 24 mg/dl (9-20); Calcium 7.8 mg/dl (8.4-10.2); Carbon Dioxide 31 mmol/L (22-30); Chloride 109 mmol/L (98-107); Estimated Creatinine Clearance 70 ml/min; Glucose 93 mg/dl (70-99); LDH 470 U/L (120-246); Magnesium 2.0 mg/dl (1.6-2.3); Potassium 4.2 mmol/L (3.5-5.1); Sodium 135 mmol/L (135-145); Total Protein 3.9 g/dl (6.3-8.2); eGFR > 60.00
[2025-03-11 06:06] LABS: Glucose - Point of Care 88 mg/dl (70-99)
[2025-03-11] MEDS: NITRO-BID 1 INCH TOPICAL (06:12)
--- NOTE | 2025-03-11 07:43 | PTCARENOTE ---
assumed care of pt from previous shift RN, Pupils +2, equally reactive to light, + cough + gag, opens eyes to tactile stimuli, RASS -2, CPOT 0, sinus rhythm on tele w HR 90, + doppler pulses, +3 edema to bilateral upper and lower extremities.
Epicardial AV wires for backup. Impella 5.5 set to P4, Right IJ cordis w swan floated to 48, CO 5.67, CI 2.73 , CVP 10, PAP 33/16. Left radial alvin reading 95/59, right radial alvin reading 87/57. Lungs diminished with scattered rhonchi, #8 ETT,
24cm right lip, VENT SETTINGS: 40/500/16/+5, pox 95%, secretions thick kang. Hypoactive BS noted, NPO maintained. Buenrostro w minimal amount of geovanna urine. CTx4 w minimal red drainage. CRRT discontinued at 07:30, blood returned successfully. PIV x2
flush easily. MSI w sterile dressing intact. Buenrostro and mouth care completed.
DRIPS: Lasix 1mg/hr
Fentanyl 100mcg/hr
Amio 0.5mg/min
Vaso 0.015units/ min
Dobutamine 5mcg/kg/min
Propofol 20 mcg/kg/min
Levo 3 mcg/min
Insulin titrated per glycemic protocol
--- NOTE | 2025-03-11 07:52 | W.PN.NEPH.PH ---
Today's Communication / Plan
-
Maintain CRRT in setting of multi pressor requirement with associated cardiogenic shock
Orders prepared
Lasix drip increased to 20 mg in
Assessment/Plan
-
Impression:
Acute type A Aortic dissection with involvement of bilateral coronary ostia and circumferentially around the root with operative repair on 03/08/25
Acute kidney injury
Postoperative cardiogenic shock now on inotropic support
History of CABG x 4 mitral valve repair tricuspid valve repair maze and EVI exclusion on 02/16/2025
Status post Impella placement on 03/08/2025
Lactic acidosis 12.4
Vent dependent respiratory failure
NSVT
Ischemic cardiomyopathy with EF of 45 to 50%
Atrial fibrillation
History of hypertension
Plan:
- CRRT pressors, ionotropic support (dobutamine), and cardiogenic shock with Impella device placement ,requiring multiple blood product infusions and with evolving lactic acidosis
-CRRT discontinued by CT surgery this morning: Patient to go back to the OR
- volume removal was EVEN on CRRT
Urine output at around 815 cc on Lasix drip, chest x-ray reviewed this morning personally no overt pulmonary edema
-I would ncrease Lasix drip to 20 mg an hour as weights continue to rise
Pressors requirements lessening but still required to keep MAP at 65 or greater
- prognosis extremely guarded
- Patient remains critically ill requiring multiple pressors and CRRT support
Total Time Spent with Patient (in minutes): 31
-
-
Date of Service: March 11, 2025
CC / HPI / ROS
-
Chief Complaint:
aortic disection
History of Present Illness:
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
Hemodynamically labile on multi pressor support as well as inotropic support
Has Impella device
Remains intubated on FiO2 40%
Review of Systems:
nooliguric
Pressor support remains
weights up
Labs
-
Labs:
WBC 10.6 10^3/uL (4.8-10.8) 03/11/25 03:57
RBC 2.76 10^6/uL (4.70-6.10) L 03/11/25 03:57
Hgb 8.4 g/dL (13.0-18.0) L 03/11/25 03:57
Hct 26.0 % (39.0-52.0) L 03/11/25 03:57
Plt Count 59 10^3/uL (130-400) L 03/11/25 03:57
eGFR > 60.00 03/11/25 03:57
eGFR Cancelled 03/11/25 03:57
Xtb-A-Fborbefnyuk Pept 2970 pg/ml 03/04/25 15:44
Albumin 1.9 g/dl (3.5-5.0) L 03/11/25 03:57
Physical Exam
-
Vital Signs:
Vital Signs
Temp Pulse Resp BP Pulse Ox
97.8 F 94 16 99/68 95
03/11/25 07:00 03/11/25 07:00 03/11/25 05:00 03/11/25 06:00 03/11/25 07:00
Cardiovascular:: Regular rate and rhythm
Respiratory:: Bilateral: Coarse
Lung Excursion:: Normal
Abdomen:: Distended
Bowel Sounds:: None
Extremity Edema:: +1: Bilateral:
Buenrostro Catheter: Yes
Other Findings::
General: Intubated sedated
[2025-03-11 07:55] LABS: Glucose - Point of Care 103 mg/dl (70-99)
--- NOTE | 2025-03-11 08:17 | W.PN.CD ---
Today's Communication / Plan
-
Given consistently elevated CI and normal DIRECTOR INTEGRATED, favor decreasing dobutamine as the Impella will be necessary for chest closure.
Discuss chest closure timing with CTS.
Continue furosemide gtt. Consider augment with chlorothiazide 500 mg IV. Volume control with CRRT.
Poor protein/albumin noted. Start tube feeds if not already ordered.
Impression / Plan
-
Impression/Plan: 74 yo male with PMH of ICM EF 35-40%, chronic HFrEF, persistent A fib on eliquis, HTN, CAD s/p CABG x 4, MV repair, TV repair, MAZE, and EVI exclusion with Dr. Sullivan (02/16/25); admitted on 03/04/2025 with acute on chronic HFrEF,
subsequently found to have severe AR due to Moses type A aortic dissection.
#Aortic dissection
-Acute, Bernard type A w/ involvement of b/l Coronary ostia and circumferentially around the root causing severe AI, distally to the Aorto-iliac bifurcation complicated by shock.
-s/p #27 valved conduit and hemiarch replacement, ligation of L and R coronary ostia as they were dissected; bypass grafting to an acute marginal and relocation of previous vein grafts onto acute marginal vein graft.
-The patient was neurologically intact on POD #1 with high pressor/inotrope requirements. The opportunity was taken to place MCS; now s/p Impella 5.5 insertion.
-CRRT started yesterday.
-Loss of Impella pulsatility lead to TTE guided repositioning. Patient was re-opened at the bedside, revealing clot around the right ventricle and SVG that appeared to compress both. The clot was evacuated (05/08/2025).
-Arterial bleeding was observed from the IAN bed, which was clipped and a sternal wire site which was double ligated with good hemostasis (03/08/2025).
-CI dwindled overnight, improved to 2.06. DIRECTOR INTEGRATED = 0.84 Wilkes. Delphine = 0.8.
-The patient has had several episodes of hypotension, though to be due to compression of the SVG. The patient was taken to OR for placement of a ringed graft to prevent compression (03/09/2025).
-Patient returned to the OR for ligation of the IAN (persistent bleeding) and re-bypass to address the angulation of the original SVG to Diag, which is thought to be leading to his multiple hypotensive episodes (03/09/2025).
-Continue to wean support as able. CI is consistently > 2.5, DIRECTOR INTEGRATED is 0.88 Wilkes, SVR ~ 900. Will discuss with CTS - Impella is probably necessary for chest closure but cardiac function appears fairly robust. Decrease dobutamine (which may be
decreasing SVR) in an attempt to minimizre needed support and monitor response. Discuss timing of chest closure with CTS.
#HFrEF/ICMO
-Acute on chronic in the setting of Type A dissection with moderate/severe AI.
-Weight up 12 kg from baseline.
-Bumetanide gtt started.
-Volume managed by CRRT.
-No role for GDMT at this time.
#Heme
-Anemia (s/p 14 units PRBC's to date).
-Acute, post operative but constellation concerning for hemolysis, possibly indicative of pump thrombosis.
-Transfusions as indicated.
-Thrombocytopenia (s/p 6 units of platelets to date).
-Acute (50-60 <-- 75 <-- 83 <-- 72 <-- 50 <-- 84 <-- 106 <-- 131 <-- 205).
-Clearly consumptive, again concerning for hemolysis/pump thrombosis, consider DIC in the context of rising INR.
-LDH remains 470.
-Coagulopathy (s/p 3 units FFP, 2 units of Cryoprecipitate).
-Acute (hovering around 2).
-Notable in the context of ALI but also concerning for consumptive coagulopathy.
-FFP/Cryo to maintain stable INR.
#CAD
-Chronic, stable.
-S/P CABG x 4 (MAGANA to LAD, SVG to OM1 to LPL, SVG to Diag).
-During operation for Ao dissection, the SVG graft was anastomosed to the SVG to diagonal graft and the LMCA/RCA were ligated to prevent further propagation of the dissection plane.
-The current anatomy is MAGANA to LAD, SVG from Ao graft to SVG to diagnoal, sequential SVG Y-graft from diagonal graft to OM1 to LPL.
-All antiplatelet therapy on hold due to thrombocytopenia/coagulopathy.
#Mitral regurgitation
-Chronic, stable
-S/P MV repair (closure of cleft between P2 and P3, free edge remodeling between P3 and commissure, placement of single [place] suture from anterolateral papillary muscle head to P2 and P3, #32 Taylor Physio Flex band annuloplasty, SN [id number])
with Dr. Sullivan, 02/16/2025.
#Tricuspid regurgitation
-Chronic, stable.
-S/P TV repair (Simple tricuspid valve repair with #34 Medtronic Triad band annuloplasty, SN [id number]) with Dr. Sullivan, 02/16/2025.
#Atrial fibrillation
-Persistent, currently in NSR.
-Rate/rhythm control with amiodarone, s/p MAZE with Dr. Sullivan, 02/16/2025.
-CHADS2-Vasc = 5 (CHF, HTN, Age x2, vascular disease).
-Anti-thrombotic therapy titrated based on coagulopathy, S/P LAAE (#40 AtriClip, SN [id number]) with Dr. Sullivan, 02/16/2025.
#IRON
-Severe, requiring CRRT.
-Management per nephrology.
#ALI
-Severe, multifactorial.
-Component of shock liver, likely a component of hemolysis.
-Avoid hepatotoxic agents.
Critical Care Time = 44 minutes.
Subjective/Interval History:
Converted to NSR.
Patient generally stable - remains on norepinephrine @ 6 mcg/kg/min, dobutamine 5 mcg/kg/min and vasopressin 0.015 mcg/min.
MAP is consistently > 65 mmHg.
CI is consistently > 2.5 L/min/m2.
Furosemide gtt started.
CRRT set to even.
Weight continues to rise.
Total protein/albumin are now pretty low, decreasing oncotic pressure (though this should be overcome by transfusions).
H/H, platelets relatively stable, no PRBC transfusions since 03/09/2025.
DATA:
TTE, 03/04/2025:
SUMMARY
1. Moderately reduced LV systolic function. Ejection fraction is 35-40%. Global hypokinesis.
2. S/p mitral valve repair with peak/mean gradients of 15/5 mmHg. Trace mitral valve regurgitation.
3. Moderate/severe aortic regurgitation. PHT approx 250 msec.
4. S/p tricuspid valve repair with mean gradient of 2 mmHg. Mild tricuspid regurgitation. Estimated PASP 38 mmHg, assuming RAP 8 mmHg. Mildly elevated PASP.
5. Compared to 02/19/25: LVEF is stable in 35-40% range, mitral valve and tricuspid valve repairs are stable; aortic regurgitation has progressed from mild/moderate to moderate/severe.
SAJAN, 03/07/2025:
SUMMARY
1. There is a Bernard type A DeBakey class I aortic dissection present.
2. Trileaflet aortic valve. Severe aortic regurgitation due to prolapse of the left vs non coronary cusp and aortic dissection.
3. Low normal ventricular systolic function. LVEF 45-50%.
4. S/p tricuspid valve repair. Trace residual tricuspid regurgitation.
5. S/p mitral valve repair. Trace residual mitral regurgitation.
6. Dr. Sullivan (CT surgery) notified of findings at time of study.
CT surgery, 03/07/2025:
Procedure(s) Performed:
1. Ultrasound-guided access using Seldinger technique 2 the right common femoral artery and vein with percutaneous access using a 25 Urdu femoral venous cannula
2. Redo sternotomy with extensive adhesiolysis (Modifier 22 for additional dissection time of 1 hour)
3. Direct aortic cannulation using ultrasound and Seldinger technique with a SAJAN guidance verifying true lumen access
4. Moderate hypothermic circulatory arrest with antegrade cerebral perfusion
5. Hemiarch ascending aortic replacement
6. Aortic root replacement using a 27 mm valved conduit
7. Ligation of left and right coronary ostia as they were dissected coronary bypass grafting to an acute marginal
8. Relocation of previous vein grafts onto this acute marginal vein graft
9. Placement of temporary atrial ventricular pacing wires
10. Transesophageal echocardiography
11. Temporary chest packing, open chest.
Impella Placement, 03/08/2025:
Procedure(s) Performed:
1. The temporary dressing over top of the open chest was removed
2. Placement of atrial pacing wires
3. Anastomosis of a 10 mm straight tube graft off of the ascending aortic graft, graft to graft anastomosis
4. Graft tunneled to the left supra clavicular region between the strap muscles
5. Placement of a 5.5 direct aortic Impella LVAD
6. Chest closure in usual fashion
TTE, 03/08/2025:
SUMMARY
1. TDS.
2. In limited views, left ventricle appears normal sized with severely reduced systolic function. Left ventricle ejection fraction is 25-30% by visual estimation. Global hypokinesis. S/p Impella 5.5 insertion which appears to be appropriately
placed.
3. In limited views right ventricle appears normal sized with mildly reduced systolic function. Right ventricle does appear to expand in diastole.
4. Limited valvular interrogation.
5. Compared to SAJAN earlier in day, overall, no significant change.
Bedside Rexploration, 03/08/2025:
Procedure: Emergency bedside reopening of chest and the loculation of clot ligation of IAN which was the bleeding source, repacking with 1 vaginal pack and Kerlix and replacement of new chest tubes
CT surgery re-exploration, 03/09/2025 (morning):
PROCEDURES:
1. Mediastinal reexploration/irrigation and removal of packing.
2. Repositioning of proximal course of greater saphenous vein graft
with several 6-0 Prolene sutures (placed/subsequently removed).
3. Placement of 6 mm ringed PTFE graft around proximal segment of
greater saphenous vein graft .
4. Replacement of new mediastinal packing (1 vaginal pack and
partial roll of Kerlix; syringe based sternal separation).
5. Reexploration with replacement of new open chest dressing.
CT surgery re-exploration, 03/09/2025 (afternoon):
Procedure(s) Performed:
1. Reopening of temporary chest coverage.
2. Ligation of IAN.
3. Coronary artery bypass grafting x 1 (Aortic Graft to RSVG to RSVG - T-graft).
4. Open vein harvest of the left thigh.
5. Transesophageal echocardiography.
6. Repacking of chest and placement of temporary dressing.
Physical Exam
Vital Signs/Labs
Vital Signs
Temp Pulse Resp BP Pulse Ox
36.9 C 93 16 90/62 95
03/11/25 08:00 03/11/25 08:00 03/11/25 08:00 03/11/25 08:00 03/11/25 08:00
03/09/25 03/10/25 03/11/25
11:59 11:59 11:59
Actual Weight 98.7 kg 100 kg 102.5 kg
03/11/25 03:57
PT 19.5 Sec (11.4-14.6) H 03/11/25 03:57
INR 1.60 03/11/25 03:57
APTT 51.9 Sec (23.4-35.0) H 03/11/25 03:57
Magnesium 2.0 mg/dl (1.6-2.3) 03/11/25 03:57
Magnesium Cancelled 03/11/25 03:57
Triglycerides 70 mg/dl (10-149) 03/10/25 04:33
03/04/25
15:44
Uls-O-Dofuupplszl Pept 2970
Physical Exam
Constitutional: No acute distress and Comfortable
EENT: Anicteric, Moist mucous membranes and Other (ET tube in place.)
Cardiovascular: Rhythm & rate is regular and Other (Deferred in light of open chest.)
Respiratory: Other (Deferred in light of open chest.)
GI: Soft
Neuro/Psych: Other (Intubated/sedated.)
Data Reviewed
-
Date of Service: March 11, 2025
Medical Decision Making: Reviewed Test Results, Independent Historian Assessment, Test Interpretation and Review of Case with other Provider
EKG: Tracing Personally Visualized and interpreted and Report Reviewed by me
Echo: Tracing Personally Visualized and interpreted and Report Reviewed by me
X-Ray/CT/US/MRI/NUC/PET: Image Personally Visualized and interpreted and Report Reviewed by me
Medical Tests (PFT, Pathology etc): Image Personally Visualized and interpreted and Report Reviewed by me
Labs: Labs Reviewed by me
Old Records: Reviewed
--- NOTE | 2025-03-11 08:25 | W.PN.INTV ---
Today's Communication / Plan
Recommendations
Back to CVOR today for chest closure + bronchoscopy
Continue mechanical ventilation
CRRT per nephrology
Vasopressors + inotropes
Goal MAP>65, MVO2>60-65 and CI>2
Goal PAD<18
Pt remains critically ill with guarded prognosis
[employer] Specialist service will continue to follow
Assessment
-
Assessment: 74-year-old male with a past medical history of multivessel CAD s/p CABG, history of severe MR s/p radical mitral valve repair, severe tricuspid valve insufficiency s/p tricuspid valve repair, chronic HFmrEF, hyperlipidemia,
hypertension, paroxysmal A-fib on Eliquis s/p open left atrial maze + left atrial appendage exclusion, hypothyroidism and history of colon adenoma who presents with shortness of breath, poor appetite and ankle swelling. Patient recently had a
cardiothoracic surgery on 02/16 after proceeding left + right heart catheterization on 02/04/2025 showed triple-vessel CAD with mildly elevated biventricular filling pressures. Patient was found to have acute postoperative blood loss anemia,
postoperative coagulopathy and he improved and was able to be discharged home on 02/22/2025. He is now returning with shortness of breath with exertion, lower extremity edema and imaging consistent with acute decompensated heart failure. IV Lasix
started. Echo performed on 03/04/2025 showed reduced EF now at 35-40%, global hypokinesis, with worsening aortic regurgitation from mild/moderate to moderate/severe.He was also started on metoprolol due to NSVT. Given the worsening aortic
insufficiency, a SAJAN was performed on 03/07/2025 showing a Morris type a DeBakey class I aortic dissection with severe aortic regurgitation due to left versus noncoronary cusp prolapse and aortic dissection. CT surgery notified and a stat CT
angio chest/abdomen/pelvis was performed confirming an aortic dissection extending throughout the aorta beginning at the root and extending to the aortic bifurcation. There also were small bilateral pleural effusions with other postoperative
changes along the sternum with a possible small hematoma. Patient brought to the OR and underwent a redo sternotomy with extensive adhesiolysis, hemiarch ascending aortic replacement, aortic root replacement, ligation of left and right coronary
ostia as they were dissected, and previous vein grafts were relocated onto the acute marginal vein graft, and his chest was left open. Patient transferred to the CVICU postoperatively, and community service technician services consulted for additional
management/recommendations.
Chronic conditions [employer]: Multivessel CAD s/p CABG x 4 (02/16/2025), history of severe mitral valve insufficiency s/p radical mitral valve repair (02/16/2025), severe tricuspid valve insufficiency (functional) s/p simple tricuspid valve repair
(02/16/2025), chronic HFmrEF, hyperlipidemia, hypertension, paroxysmal A-fib s/p open left atrial maze + EVI�exclusion (02/16/2025) on Eliquis, mild aortic valve insufficiency secondary to leaflet prolapse, hypothyroidism, history of colon adenoma
Impression:
#Type A aortic dissection with resultant severe aortic regurgitation s/p redo sternotomy with extensive adhesiolysis, moderate hypothermic circulatory arrest, hemiarch ascending aortic replacement, aortic root replacement, ligation of left and right
coronary ostia as they were dissected followed by relocation of previous vein grafts onto acute marginal vein graft, and chest left open (POD #4)
#Cardiogenic shock now on multiple vasopressors and placement of a 5.5 direct aortic Impella LVAD with subsequent chest closure in usual fashion (POD #3)
#Cardiac tamponade with cardiovascular collapse s/p emergent bedside reopening of chest with ligation of IAN with multiple clot evacuation and repacking with vaginal pack + Kerlix and replacement chest tubes (POD #3)
#Mediastinal reexploration/irrigation and removal packing with repositioning of proximal course of GSV graft with placement of 6 mm ringed PTFE graft around proximal segment of GSV graft with replacement of new mediastinal packing and new open chest
dressing placed (POD#3)
#Kinking of single vein graft s/p ligation of IAN + CABG x 1 with aortic Graft to RSVG to RSVG - T-graft (POD #2)
#Ventilator dependent respiratory failure with acute hypoxia
#IRON with proximal right renal artery narrowing with decreased right kidney perfusion (per CTA chest/abdomen/pelvis from 03/07/2025) currently on CRRT
#Postoperative coagulopathy
#Lactic acidosis
#Acute HFrEF exacerbation (present on admission)
#Shock liver with hyperbilirubinemia
#Chronic anemia (baseline 9.5-11 g/dL)
#Multivessel CAD s/p CABG x 4, severe mitral valve insufficiency s/p radical mitral valve repair, severe tricuspid valve insufficiency (functional) s/p simple tricuspid valve repair (all on 02/16/2025)
#Paroxysmal A-fib s/p open left atrial maze + EVI�exclusion (02/16/2025) on Eliquis
Plan:
Patient going back to OR today for chest closure and bronchoscopy; I am available if additional assistance needed
Ventilator settings reviewed
FiO2 will be weaned to maintain SpO2 >90-94%
Minute ventilation will be adjusted
Arterial blood gases will be monitored
Spontaneous breathing trial will be attempted with hopeful extubation after anesthesia/sedation wear off
prn nebulized bronchodilators - not currently bronchospastic
Pulmonary artery catheter parameters will be followed
Pressors/antihypertensive/inotropes/diuretics will be provided as needed
Continue LV Impella and wean down as tolerated, per CT surgery team + cardiology - -> given concern for pump thrombosis, ideally the Impella should be removed (per Dr. Hogan)
Maintain MAP>65
Replete electrolytes with K>4, Mg>2
Lactate is now <2mmol/L - continue trending per CT surgery team
Trend MVO2 as well as CI, with goal >65 and >2, respectively
Continue amio gtt
Monitor chest tube output (bilateral pleural chest tubes + mediastinal chest tubes x 2)
Monitor hemoglobin
Monitor platelet count and coags
Transfuse blood products as needed to maintain Hb>7g/dL, plt>50k (given post-operative status)
CT surgery managing chest tubes
Monitor blood sugar to maintain euglycemia with goal BG 110-140
Insulin drip per protocol
Nephrology consulted and given his reduction in UOP since 03/08 - continue CRRT
Aspiration precautions
VAP prevention protocol
DVT prophylaxis: Eliquis currently on hold (last dose morning of 03/07/2025)
Early nutrition when able
Early mobilization
Patient is critically ill with poor prognosis; continue management in CVICU - [employer] Specialist service will continue to follow along.
Critical care statement: A total of 42 minutes of critical care time was provided for this patient today. This includes management of ventilator, spontaneous breathing trial, arterial blood gases, pressors, of unstable vital signs, evaluation of the
patient at bedside, reviewing the patient's pertinent medical records including radiographs, microbiology, laboratory evaluations, and discussion with primary team and critical care nursing.
Data:
CTA chest/abdomen/pelvis with/without contrast 03/07/2025:
1.There is an aortic dissection extending throughout the aorta beginning at the root and extending to the aortic bifurcation consistent with Moses type A dissection.The aortic branch arteries appear to be supplied off the true lumen. There is
associated moderate narrowing of the descending thoracic aorta and proximal abdominal aorta. Additionally there is narrowing at the proximal right renal artery with associated asymmetrically decreased perfusion of the right kidney.
2. Small bilateral pleural effusions with adjacent atelectasis.
3. Postoperative changes along the sternum with a possible small hematoma.
CXR 03/09/2025:
Stable position of the endotracheal tube, Gardiner-Fabio catheter, Impella device, and bilateral chest tubes.
A sternal retractor again projects over the chest.
No focal consolidation, pleural effusion, or pneumothorax. Sternotomy wires and cardiac valve prostheses. Stable cardiomediastinal silhouette. Chronic degenerative changes of the spine.
Subjective Dataa
Subjective Data
Date of Service:
Date of Service: March 11, 2025
Chief Complaint: [employer] Specialist Follow Up
Subjective:
Patient seen this morning. Go back to the OR today for chest closure. Remains on insulin drip, amiodarone infusion, dobutamine, Levophed and vasopressin. Sedated currently on propofol at 20 mcg/kg/min, and fentanyl at 100 mcg/h.
Review of Systems
General: Unobtainable - Pat Unresp
Objective Data
Data Reviewed
Vital Signs / I&O / Oxygen:
Vital Signs
Temp Pulse Resp BP Pulse Ox
99.3 F 85 16 76/57 96
03/11/25 10:00 03/11/25 10:05 03/11/25 10:00 03/11/25 10:00 03/11/25 10:05
Intake and Output
03/10/25 03/11/25 03/12/25
06:59 06:59 06:59
Intake Total 3544.7 / 3667.0 3034.7 / 3122.1 348.9 / 348.9
Output Total 3186 / 3313 3217 / 3232 120 / 120
Balance 358.7 / 354.0 -182.3 / -109.9 228.9 / 228.9
SaO2 [A/C] 98
SaO2 [SIMV] 95
SaO2 96
Physical Exam
General: Respiratory Distress (negative), Comfortable, Chills (negative) and Other (Intubated/sedated)
HEENT: Normocephalic, Anicteric and Other (ETT in place)
Cardiovascular: S1-S2 and Peripheral Edema (negative)
Respiratory: Wheeze (negative), Crackles (Anteriorly on both lung hanna), Rhonchi (negative), Non-Labored Respirations, ET Tube (Mechanical breath sounds heard bilaterally), Chest Tube (Bilateral pleural chest tubes + mediastinal chest tubes x 2)
and Other (Anterior chest packing in place)
GI: Soft, Non Distended, Non Tender and Normal Bowel Sounds
Neurology: Tremors (negative) and Other (Sedated)
Skin: Warm, Dry, Cyanosis (negative) and Jaundice (negative)
Labs/Micro/Reports
Lab Data
03/11/25 03:57
Laboratory Results
03/10/25 03/10/25 03/10/25
11:43 15:49 20:00
PT 21.4 H 21.9 H
INR 1.84 1.85
APTT 44.9 H 52.8 H
pH 7.42 7.40 7.38
pCO2 47 48 52 H
pO2 93 87 75 L
HCO3 30.5 H 29.7 H 30.8 H
O2 Delivery Level
03/11/25 03/11/25 03/11/25
00:08 03:57 08:32
PT 19.6 H 19.5 H
INR 1.60 1.60
APTT 51.1 H 51.9 H
pH 7.37 7.38 7.39
pCO2 50 H 49 H 48
pO2 126 H 81 L 79 L
HCO3 28.9 H 29.0 H 29.1 H
O2 Delivery Level Vent Vent Vent
[2025-03-11 08:39] LABS: B.E. 3.6 mmol/L; HCO3 29.1 mmol/L (21-28); O2 Saturation % 98.3 % (94-98); PCO2 48 mmHg (35-48); PO2 79 mmHg (83-108); Potassium 4.5 mMOL/L (3.5-5.1); Sodium 136 mMOL/L (136-145)
[2025-03-11 08:40] LABS: O2 Therapy VENT
[2025-03-11] MEDS: NSS (PRESERVATIVE FREE) 10 ML IV (08:45)
[2025-03-11] MEDS: PROTONIX IV 40 MG IV (08:45)
[2025-03-11] MEDS: BACTROBAN 2% OINTMENT 1 APPLIC NASAL (08:45)
[2025-03-11] MEDS: NSS 500 IV (08:46)
[2025-03-11] MEDS: REFRESH EYE DROPS (PF) 1 DROPS OPHTH (08:46)
[2025-03-11 09:07] LABS: Blood Urea Nitrogen 26 mg/dl (9-20); Calcium 7.7 mg/dl (8.4-10.2); Carbon Dioxide 30 mmol/L (22-30); Chloride 110 mmol/L (98-107); Estimated Creatinine Clearance 71 ml/min; Glucose 99 mg/dl (70-99); Magnesium 1.9 mg/dl (1.6-2.3); Potassium 4.3 mmol/L (3.5-5.1); Sodium 134 mmol/L (135-145); eGFR > 60.00
[2025-03-11] MEDS: DOBUTREX 250 IV (09:37)
[2025-03-11 10:06] LABS: Glucose - Point of Care 99 mg/dl (70-99)
--- NOTE | 2025-03-11 10:07 | PTCARENOTE ---
pt w brief runs of self limiting afib, bp lagged w arrhythmia. Levo titrated to maintain MAP goal. Pt returned to sinus rhythm, able to wean levo back down. CT URSZULA aware.
--- NOTE | 2025-03-11 11:09 | PTCARENOTE ---
1 unit PRBC being transfused pre op as ordered. Awaiting plts from blood bank.
[2025-03-11 11:59] LABS: Glucose - Point of Care 108 mg/dl (70-99)
--- NOTE | 2025-03-11 12:02 | PTCARENOTE ---
plts transfused as ordered. at bedside, updated. Emotional support provided.
[2025-03-11] MEDS: CORDARONE 259 MG IV (12:03)
--- NOTE | 2025-03-11 12:59 | W.CVOR.SURPR ---
CVOR Surgeon Immed Pre Op
-
I have examined this patient prior to performance of the scheduled procedure.
The patient's condition is unchanged from the time of the dictated/written History and
Physical and the patient is able to undergo the scheduled procedure.
Chest closure and bronchoscopy
[2025-03-11 13:04] LABS: B.E. 2.5 mmol/L; HCO3 27.8 mmol/L (21-28); O2 Saturation % 98.4 % (94-98); PCO2 46 mmHg (35-48); PO2 94 mmHg (83-108); Potassium 4.3 mMOL/L (3.5-5.1); Sodium 136 mMOL/L (136-145)
[2025-03-11 13:13] LABS: Blood Urea Nitrogen 28 mg/dl (9-20); Calcium 7.4 mg/dl (8.4-10.2); Carbon Dioxide 30 mmol/L (22-30); Chloride 109 mmol/L (98-107); Estimated Creatinine Clearance 65 ml/min; Glucose 97 mg/dl (70-99); LDH 444 U/L (120-246); Magnesium 1.9 mg/dl (1.6-2.3); Potassium 4.1 mmol/L (3.5-5.1); Sodium 134 mmol/L (135-145); eGFR > 60.00
[2025-03-11 13:15] LABS: INR 1.67; PT 19.9 Sec (11.4-14.6)
[2025-03-11 13:16] LABS: APTT 51.6 Sec (23.4-35.0)
--- NOTE | 2025-03-11 13:31 | CM ---
Chart reviewed. Patient going back to the OR for chest closure today. Patient is independent of ADLS, lives with his in a 2 STH, 1 RAI, ambulates with a SPC. Patient remains in critical condition. CM will need to have functional
assessment to determine discharge needs. Plans is for the patient to return home with CT Transitional RN vs Rehab. CM to follow
--- NOTE | 2025-03-11 13:46 | PTCARENOTE ---
Transported to CVOR by CVOR team.
[2025-03-11 13:58] LABS: Blood Urea Nitrogen 28 mg/dl (9-20); Calcium 7.4 mg/dl (8.4-10.2); Carbon Dioxide 29 mmol/L (22-30); Chloride 109 mmol/L (98-107); Estimated Creatinine Clearance 60 ml/min; Glucose 96 mg/dl (70-99); Magnesium 1.9 mg/dl (1.6-2.3); Potassium 4.3 mmol/L (3.5-5.1); Sodium 137 mmol/L (135-145); eGFR 57.29
--- NOTE | 2025-03-11 15:22 | W.PN.CT.SURG ---
Addendum entered and electronically signed by Ilan Sullivan MD 03/23/25 08:11:
Rebeca Townsend PA-C (assisted with retraction, exposure, closure of fascia through skin)
Original Note:
CT Surgery Operative Note
-
Pre-op Diagnosis: Open chest status post emergent type a repair and CABG revision
Post-op Diagnosis: Same
Date of Surgery: 03/11/25
Procedure: Washout with antibiotic solution inspection of all surgical sites and closure with wires and plates
Primary Surgeon: Ilan Sullivan MD, MS
Assisting Surgeons: Rebeca Townsend PA-C
Specimen: None
Cultures: None
Complications / Blood Loss: None
Findings:
His vein graft was inspected and appeared to be encased in a thick rind. However this actually was beneficial as it prevented from kinking or moving. The MAGANA bed was also inspected again and found to be hemostatic. His bone was extremely friable
as expected. Wires were placed again and the chest was closed in the usual fashion. I then plated additionally at the manubrium and 2 at the sternum for additional reinforcement. There was some oozing from the bone marrow however overall the
chest tubes were dry. There was some malfunctioning of his Impella device while using electrocautery that resulted in the device shutting off and it had to be restarted. He was hemodynamically stable during this episode. The 24 regular chest tube
was exchanged for a Satish drain of the right hemithorax which was then threaded back towards the posterior aspect of the right hemithorax as there was a pleural effusion there that was serosanguineous. The device was left at P4 for but only minor
escalation of any vasoactive drips.
Thank you for involving me in the care of this patient. Please feel free to contact me with any questions or concerns.
Ilan Sullivan MD, MS
Cardiothoracic Surgeon
[facility]
This dictation was created using the [employer] dictation system. Please excuse any grammatical, typographical, or 'sound alike' errors.
--- NOTE | 2025-03-11 15:32 | PHA.VAN.FU ---
Vancomycin Assessment / Plan
- Assessment
Hemodialysis Schedule: Other ([facility] @ 2 L/H)
- Assessment - Therapeutic Drug Monitoring
Random Level: 16.4
- Dosing Plan
Dosing Comments: receiving 1g pre-op today - hold off on further dosing
- Monitoring Plan
Random Level: 03/12 0600
- Follow Up
Pharmacy will continue to follow.
Vancomycin Follow UP
- -
Patient Age: 74
Patient Sex: Male
Vancomycin Day #: 4 (obtained consult 03/09)
Indication: Prophylaxis (Surg,Hiv,...)
Requesting Provider: Beau Sands
Pertinent Antimicrobial Allergies:
NKDA
Height / Weight:
Height 5 ft 11 in
Actual Weight 102.5 kg
Pertinent Past Medical History: BMI ~30
- Vital Signs / Lab Results
Temp Pulse Resp BP Pulse Ox
98.7 F 83 16 93/61 99
03/11/25 12:56 03/11/25 13:15 03/11/25 12:56 03/11/25 12:00 03/11/25 13:15
Lab Results - Hematology
03/08/25 03/08/25 03/09/25
16:47 20:13 00:18
WBC 8.6 8.5 12.0 H
03/09/25 03/09/25 03/09/25
03:41 05:41 09:30
WBC 12.5 H 12.3 H Cancelled
03/09/25 03/09/25 03/09/25
11:27 13:30 15:03
WBC 11.6 H Cancelled 11.0 H
03/09/25 03/09/25 03/09/25
17:30 18:38 21:30
WBC Cancelled 10.8 Cancelled
03/10/25 03/10/25 03/10/25
00:23 04:33 04:33
WBC 11.1 H Cancelled 10.2
03/10/25 03/10/25 03/10/25
08:24 11:43 15:49
WBC 9.0 8.2 6.8
03/10/25 03/11/25 03/11/25
20:00 00:08 03:57
WBC 7.2 8.9 10.6
Lab Results - Chemistry
03/08/25 03/08/25 03/09/25
16:47 20:13 00:18
BUN 35 H 28 H 33 H
Creatinine 1.7 H 1.3 1.5 H
Estimated Creat Clear 40 52 45
Albumin 1.9 L 1.2 L 1.9 L
03/09/25 03/09/25 03/09/25
03:41 09:30 11:27
BUN 32 H Cancelled 34 H
Creatinine 1.4 H Cancelled 1.5 H
Estimated Creat Clear 49 Cancelled 51
Albumin 2.0 L Cancelled
03/09/25 03/09/25 03/09/25
13:30 17:08 17:30
BUN Cancelled 35 H Cancelled
Creatinine Cancelled 1.5 H Cancelled
Estimated Creat Clear Cancelled 51 Cancelled
Albumin Cancelled Cancelled
03/09/25 03/09/25 03/10/25
20:04 21:30 00:23
BUN 32 H Cancelled 32 H
Creatinine 1.3 Cancelled 1.2
Estimated Creat Clear 59 Cancelled 64
Albumin Cancelled
03/10/25 03/10/25 03/10/25
04:33 04:33 04:33
BUN 29 H Cancelled
Creatinine 1.2 Cancelled
Estimated Creat Clear 64
Albumin
03/10/25 03/10/25 03/10/25
04:33 08:24 11:43
BUN 28 H 27 H
Creatinine 1.1 1.1
Estimated Creat Clear Cancelled 70 70
Albumin
03/10/25 03/10/25 03/11/25
15:49 20:00 00:08
BUN 26 H 24 H 24 H
Creatinine 1.1 1.1 1.1
Estimated Creat Clear 70 70 70
Albumin
03/11/25 03/11/25 03/11/25
03:57 03:57 03:57
BUN 24 H Cancelled
Creatinine 1.1 Cancelled
Estimated Creat Clear 70
Albumin
03/11/25 03/11/25 03/11/25
03:57 08:32 12:48
BUN 26 H 28 H
Creatinine 1.1
Estimated Creat Clear Cancelled 71
Albumin 1.9 L
03/11/25 03/11/25 03/11/25
12:48 12:48 12:48
BUN 28 H
Creatinine 1.2 1.3
Estimated Creat Clear 65 60
Albumin
03/08/25 03/08/25 03/08/25
15:30 16:47 20:13
Lactic Acid Cancelled 12.6 H* 8.5 H*
03/08/25 03/09/25 03/09/25
22:46 00:18 01:30
Lactic Acid 8.1 H* 7.7 H* Cancelled
03/09/25 03/09/25 03/09/25
03:41 05:30 05:41
Lactic Acid 6.2 H* Cancelled 5.1 H*
03/09/25 03/09/25 03/09/25
06:00 09:30 11:27
Lactic Acid Cancelled Cancelled 3.1 H
03/09/25 03/09/25 03/09/25
12:08 13:30 15:30
Lactic Acid 3.2 H Cancelled Cancelled
03/09/25 03/09/25 03/09/25
17:08 17:30 19:30
Lactic Acid 2.3 H Cancelled Cancelled
03/09/25 03/09/25 03/09/25
20:03 21:30 23:30
Lactic Acid 2.1 H Cancelled Cancelled
03/10/25 03/10/25 03/10/25
00:23 04:33 08:24
Lactic Acid 1.5 1.4 1.1
03/10/25 03/10/25 03/10/25
11:43 15:49 20:00
Lactic Acid 1.5 1.0 1.0
03/11/25 03/11/25 03/11/25
00:08 03:57 08:32
Lactic Acid 1.2 1.0 0.9
03/11/25
12:49
Lactic Acid 0.9
Therapeutic Drug Monitoring
Random Vancomycin 16.4 ug/ml 03/11/25 03:57
--- NOTE | 2025-03-11 15:40 | W.PN.UPDATE ---
Update Note
Progress Note Update
Returned to OR for sternal washout, chest closure and bronchoscopy�
Drips: Epi @ 1, Levo @ 4, Vaso @ 0.015, Propofol @ 20, Fentanyl @ 100, Lasix @ 10, Amio @ 0.5
�
NEURO: sedated, pupils +2mm B/L
RESP: #8OT @23cm> 500/60%/14/5. Lungs clear B/L. 2 mediastinal (35cc on arrival) and R/L pleural (0cc on arrival) chest tubes to -20cm suction. Sanguineous drainage
CV: RRR +S1, S2, no S3, no�rub, no murmur. Dermabond to median sternotomy. RIJ w/[place] locked @ 49cm. Central Impella 5.5 locked @ 39cm. Level P3. Ao 101/63, LV 1104/11,PA 46/25; CVP XX; C.O 5.88/CI 2.83
ABD: round, soft, no BS
EXT: no edema, +2/4 DP pulses B/L, no femoral bruit, left radial and right femoral A-line intact, left femoral Trialysis catheter intact
: Buenrostro with clear yellow urine
�
A/P: POD #4 S/p Emergent Redo sternotomy with extensive adhesiolysis (Modifier 22 for additional dissection time of 1 hour)/Hemiarch ascending aortic replacement/ Aortic root replacement using a 27 mm valved conduit/Ligation of left and right
coronary ostia as they were dissected coronary bypass grafting to an acute marginal/Relocation of previous vein grafts onto this acute marginal vein graft/Temporary chest packing, open chest, by Dr. Sullivan
POD #3 -S/p placement of a 5.5 direct aortic Impella LVAD
-Cardic tamponade/ Cardiovascular collapse-POD #3 s/p Emergency bedside reopening of chest and the evacuation of clot; ligation of IAN, which was the bleeding source; repacking with 1 vaginal pack and Kerlix; replacement of new chest tubes
POD #0 s/p chest washout, chest closure and bronchoscopy
- continue Vanc dose by levels (x 3 more days) and cefepime for empiric respiratory coverage
- check MRSA screen
- continue Lasix infusion
- trend labs off CRRT
- possible bedside Impella removal 03/12
[2025-03-11 15:49] LABS: Glucose - Point of Care 112 mg/dl (70-99)
[2025-03-11 16:02] LABS: B.E. 2.3 mmol/L; HCO3 27.8 mmol/L (21-28); O2 Saturation % 97.7 % (94-98); PCO2 47 mmHg (35-48); PO2 76 mmHg (83-108); Potassium 4.3 mMOL/L (3.5-5.1); Sodium 136 mMOL/L (136-145)
--- NOTE | 2025-03-11 16:04 | PTCARENOTE ---
Received pt from [facility]. Intubated and sedated on the Vent, SIMV 40% rate 16 500 psv 5 peep 5 pulse ox 94%. AV paced via Epicardial wires set to DDD 62. LT neck Impella 5.5 remains at 39 cm. RT IJ swan at 48 cm, RT and Left radial A lines as well
as Rt femoral A line transducing. Lines leveled, recalibrated and flushed. CI on arrival 2.33. Chest tubes x 3 to - 20 cm suction. No air leak or crepitus noted. Midsternal chest insicion with Antibiotic dressing intact. Buenrostro draining geovanna
urine. DP pulses via doppler. General plus 3 edema appreciated. Drips infusing on arrival as follows : Levophed, Dobutamine, Epinephrine, Lasix, Fentanyl, propofol, Amiodarone, vasopressin. See flow sheets for totals and titrations.
--- NOTE | 2025-03-11 16:05 | W.PN.CT.SURG ---
CT Surgery Operative Note
-
Cardiac Surgery Operative Report
Pre-op Diagnosis: Prolonged ventilator requirement, increased secretions within airway. Open chest s/p emergent type A repair and CABG revision
Post-op Diagnosis: Same
Procedure: Endotracheal bronchoscopy with lavage
CPT Code: 06788
Primary Surgeon: Nory Carpenter MD, MPH
Specimen: None
Cultures: None
Complications / Blood Loss: None
Findings: Patient was taken to the operating room for planned chest closure with Dr. Ilan Sullivan. Given increased endotracheal tube secretions and prolonged ventilator requirement, it was discussed preoperatively with family to proceed with
bronchoscopy while in the operating room. Consent was obtained. Once patient was positioned onto the operating room table and prepped and draped for sternal washout, we proceeded with bronchoscopy while on the ventilator. There was significant
thick secretions throughout both the right and left sides and a large and smaller airways, was not easily removed with the bronchoscopy. We are able to break up secretions and thin out some of the thick coating using saline lavage. Tissue
underneath was edematous and somewhat friable, but we were able to get decent result with lavage and suctioning. Samples were not collected at this time. For details of external washout and closure per Dr. Sullivan.
oNry Carpenter MD, MPH
Cardiothoracic Surgeon
[facility]
This dictation was created using the [employer] dictation system. Please excuse any grammatical, typographical, or 'sound alike' errors.
[2025-03-11 16:07] LABS: Hematocrit 26.7 % (39.0-52.0); Hemoglobin 8.5 g/dL (13.0-18.0); Mean Corp Hgb Conc. 31.8 g/dL (33.0-37.0); Mean Corpuscular Volume 94.7 fL (80.0-94.0); Platelet Count 76 10^3/uL (130-400); Red Cell Dist. Width 16.9 % (11.5-14.5)
[2025-03-11] MEDS: ANCEF 10 IV ×2 (16:13)
[2025-03-11] MEDS: VANCOCIN 200 IV (16:13)
[2025-03-11] MEDS: LASIX 50 IV (16:14)
[2025-03-11] MEDS: ADRENALIN 258 MG IV (16:14)
[2025-03-11] MEDS: MAXIPIME 2000 MG IV (16:14)
[2025-03-11] MEDS: STERILE WATER FOR INJECTION 10 ML IV (16:14)
[2025-03-11] MEDS: LEVOPHED 258 MG IV (16:15)
[2025-03-11 16:21] LABS: Blood Urea Nitrogen 30 mg/dl (9-20); Calcium 7.3 mg/dl (8.4-10.2); Carbon Dioxide 30 mmol/L (22-30); Chloride 108 mmol/L (98-107); Estimated Creatinine Clearance 60 ml/min; Glucose 102 mg/dl (70-99); INR 1.72; LDH 463 U/L (120-246); Magnesium 2.0 mg/dl (1.6-2.3); PT 20.3 Sec (11.4-14.6); Potassium 4.2 mmol/L (3.5-5.1); Sodium 133 mmol/L (135-145); eGFR 57.29
[2025-03-11 16:23] LABS: APTT 50.7 Sec (23.4-35.0)
[2025-03-11] MEDS: NOVOLIN R INSULIN INFUSION 100 IV (17:08)
--- NOTE | 2025-03-11 17:29 | PTCARENOTE ---
Mera x3, PA and CVP tubing changed. ETT position changed from right to left w RT present.
[2025-03-11 18:05] LABS: Glucose - Point of Care 93 mg/dl (70-99)
[2025-03-11 18:12] LABS: B.E. 3.4 mmol/L; HCO3 28.5 mmol/L (21-28); O2 Saturation % 98.0 % (94-98); PCO2 45 mmHg (35-48); PO2 79 mmHg (83-108); Potassium 4.2 mMOL/L (3.5-5.1); Sodium 137 mMOL/L (136-145)
[2025-03-11 18:25] LABS: INR 1.60; PT 19.3 Sec (11.4-14.6)
[2025-03-11 18:26] LABS: APTT 49.4 Sec (23.4-35.0)
[2025-03-11 18:29] LABS: LDH 483 U/L (120-246)
[2025-03-11 18:30] LABS: Blood Urea Nitrogen 32 mg/dl (9-20); Calcium 7.3 mg/dl (8.4-10.2); Carbon Dioxide 29 mmol/L (22-30); Chloride 107 mmol/L (98-107); Estimated Creatinine Clearance 60 ml/min; Glucose 103 mg/dl (70-99); Magnesium 2.0 mg/dl (1.6-2.3); Potassium 4.2 mmol/L (3.5-5.1); Sodium 136 mmol/L (135-145); eGFR 57.29
[2025-03-11] MEDS: SODIUM BICARBONATE 1025 MEQ INF CATH (18:37)
--- NOTE | 2025-03-11 19:00 | PTCARENOTE ---
Resumed care of the patient at 1900. Patient in bed, intubated/sedated, PERRL 2 cm sluggish, open eyes slightly to voice and tactile stimulation. NSR on CM, rates 90's, AV wires present - inappropriate pacing spikes noted - pacer box set to
60/12/15/0.4/0.8, patient's intrinsic rate higher, box switched an settings modified; heart tones audible, Impella 5.5 @ 39 in the L neck to ascending aorta at level P3; +3 generalized pitting edema, all pulses present via Doppler. #8.0 ETT 22 @ the
center lip, SIMV mechanical ventilation 40%/16/500/5 satting 95%+, lungs with coarse crackles and rhonchi on the R, dim throughout on the L, lung expansion symmetrical, thick kang secretions via endotracheal suctioning; CTx4 to -20 cm wall suction,
no air leak, tidaling, or crepitus noted. Initially limited output but copious - please see other note. Abdomen SNT, round, hypoactive BS. Buenrostro present draining clear, yellow urine. MSI with Aquacel CDI scant drainage, CT dressing CDI, R groin with
bumper in place - transparent dressing CDI, older RSVG CDI KRYSTYNA and well approximated, L distal medial thigh Aquacel CDI, medial lebron with Aquacel CDI with a small amount of old drainage. RIJ Cordis with Noel @ 48, arterial line x 3 in the B/L
radial and R femoral artery, L fem Trialysis catheter with a pigtail, PIV x1; all applicable lines leveled, zeroed, and flushed, correlating on the monitor. Pt on insulin, levo, epi, vaso, dobut, amio, lasix, fent, and prop. See work list for
nursing interventions and titration data.
--- NOTE | 2025-03-11 19:58 | PTCARENOTE ---
During routine initial assessment care, R/L pleural CT clotted, clots broken up to facilitate drainage, R/L pleural CT immediately dumped 175 mL in approximately 5 minutes and >450 mL within [address] also dumped 40 mLs serosanguineous
drainage. CVPA at bedside to assess. Labs drawn and sent, hemodynamically stable on gtts as listed in handoff validation in work list, awaiting additional orders.
[2025-03-11 20:06] LABS: Glucose - Point of Care 115 mg/dl (70-99)
--- NOTE | 2025-03-11 20:10 | PTCARENOTE ---
During routine initial assessment care, R/L pleural CT clotted, clots broken up to facilitate drainage, R/L pleural CT immediately dumped 175 mL serosanguineous in approximately 5 minutes and >450 mL within [address] also dumped 35 mLs
serosanguineous drainage. CVPA at bedside to assess. Labs drawn and sent, hemodynamically stable on gtts as listed in handoff validation in work list, awaiting additional orders.
[2025-03-11 20:13] LABS: B.E. 2.4 mmol/L; HCO3 27.3 mmol/L (21-28); O2 Saturation % 98.3 % (94-98); PCO2 43 mmHg (35-48); PO2 81 mmHg (83-108); Potassium 4.1 mMOL/L (3.5-5.1)
[2025-03-11 20:20] LABS: Hematocrit 28.2 % (39.0-52.0); Hemoglobin 9.0 g/dL (13.0-18.0); Mean Corp Hgb Conc. 31.9 g/dL (33.0-37.0); Mean Corpuscular Volume 94.0 fL (80.0-94.0); Platelet Count 69 10^3/uL (130-400); Red Cell Dist. Width 16.9 % (11.5-14.5)
[2025-03-11 20:24] LABS: INR 1.61; PT 19.3 Sec (11.4-14.6)
[2025-03-11 20:25] LABS: APTT 45.8 Sec (23.4-35.0)
[2025-03-11 20:41] LABS: ALT (SGPT) 113 U/L (0-50); AST (SGOT) 269 U/L (17-59); Albumin 2.0 g/dl (3.5-5.0); Alkaline Phosphatase 199 U/L (38-126); Blood Urea Nitrogen 32 mg/dl (9-20); Calcium 7.5 mg/dl (8.4-10.2); Carbon Dioxide 28 mmol/L (22-30); Chloride 106 mmol/L (98-107); Estimated Creatinine Clearance 56 ml/min; Glucose 110 mg/dl (70-99); LDH 465 U/L (120-246); Magnesium 2.0 mg/dl (1.6-2.3); Potassium 4.0 mmol/L (3.5-5.1); Sodium 132 mmol/L (135-145); Total Protein 4.1 g/dl (6.3-8.2); eGFR 52.41
[2025-03-11 22:03] LABS: Glucose - Point of Care 87 mg/dl (70-99)
[2025-03-11] MEDS: CALCIUM GLUCONATE 130 MG IV (22:22)
[2025-03-11 23:57] LABS: Glucose - Point of Care 105 mg/dl (70-99)
[2025-03-12] VITALS (11 sets, daily range): BP systolic 83–116; BP diastolic 50–63
[2025-03-12 00:16] LABS: B.E. 1.6 mmol/L; HCO3 26.6 mmol/L (21-28); O2 Saturation % 98.5 % (94-98); PCO2 43 mmHg (35-48); PO2 92 mmHg (83-108); Potassium 3.8 mMOL/L (3.5-5.1); Sodium 136 mMOL/L (136-145)
--- NOTE | 2025-03-12 00:30 | PTCARENOTE ---
CT output significantly slowed down after initial high volume output as previously noted. As of 0000, the total output in the R/L pleural chamber is 720 mLs. Patient remains hemodynamically stable on the monitor. CHG wipes, adams care, and linen
change provided. Face washed and mouth care. iCal repleted - see MAR. No acute changes, assessment of needs ongoing.
[2025-03-12 00:48] LABS: LDH 466 U/L (120-246)
[2025-03-12] MEDS: DIPRIVAN 100 IV ×2 (01:28→16:35)
[2025-03-12] MEDS: ANCEF 5 IV (01:37)
[2025-03-12 02:02] LABS: Glucose - Point of Care 101 mg/dl (70-99)
--- NOTE | 2025-03-12 02:49 | W.PN.CT ---
Today's Communication / Plan
-
Plan:
-No major issues overnight. Hemodynamically intact
-Remains intubated on Propofol and Fentanyl
-Current vent settings: A/C, 500, 16, 5, .40
-Remains on Dobutamine @ 5, Epinephrine @ 1, Levophed @ 2, Lasix gtt @ 1 mg/hr, Fentanyl @ 100, Propofol @ 20, Amiodarone @ 0.5; vasopressin was weaned off overnight
-Impella is in intact @ P-3
-Underwent chest washout/closure and bronchoscopy with lavage yesterday 03/11/25
-Holding BB while on dobutamine and hypotensive
-Holding PO meds while intubated
-Cont. empiric Ancef and Cefepime
-Monitor chest tube output: 2meds 170/240, R/l Pleurals 630/750
-Wean off sedation
-CPAP trials
-Wean dobutamine as tolerated
-Will d/c swan and a-line once off dobutamine
-Maintain adams catheter for accurate I/O's while on dobutamine
-Maintain cordis
-Maintain temporary v-wire
-D/C'd right femoral artery groin sheath and right femoral vein puncture site retention suture without incident this AM @ 0320
-OOB into chair/Ambulate when able to extubate
Assessment / Plan
-
Assessment:
-S/p Emergent Redo sternotomy with extensive adhesiolysis (Modifier 22 for additional dissection time of 1 hour)/Hemiarch ascending aortic replacement/ Aortic root replacement using a 27 mm valved conduit/Ligation of left and right coronary ostia as
they were dissected coronary bypass grafting to an acute marginal/Relocation of previous vein grafts onto this acute marginal vein graft/Temporary chest packing, open chest, by Dr. Sullivan, 03/07/25, pod#5
-S/p placement of a 5.5 direct aortic Impella LVAD on 03/08/[address] Sullivan
-Cardic tamponade/ Cardiovascular collapse- s/p Emergency bedside reopening of chest and the evacuation of clot; ligation of IAN, which was the bleeding source; repacking with 1 vaginal pack and Kerlix; replacement of new chest tubes by Dr. Sullivan on
03/08/25
S/p�mediastinal�reexploration/irrigation and placement of�6mm�ringed PTFE graft around the greater�saphaenous�graft. ���S/P�Emergent�Ligation of IAN, Coronary artery bypass grafting x 1 (Aortic Graft to RSVG to RSVG - T-graft)�03/09
-S/P Washout with antibiotic solution inspection of all surgical sites and closure with wires and plates, by Dr. Sullivan, 03/11/25
-S/P Endotracheal bronchoscopy with lavage, by Dr. Carpenter, 03/07/25
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
-Worsening of aortic valve insufficiency to severe secondary to dissection
-Acute on chronic congestive heart failure with volume overload secondary to new aortic valve insufficiency
-Hypertension
-Hyperlipidemia
-Hypothyroidism
-AFIB on Eliquis
-Ischemic CM
-Recent cardiac surgery over 20 days ago
-Mitral valve insufficiency status post repair
-Tricuspid insufficiency status post repair
-Coronary artery disease status post CABG
-S/P CABG x 4, MV repair, TV repair, MAZE, and EVI exclusion, Dr. Sullivan 02/16/25, Readmitted for SOB on 03/04
-Acute intraop/postop blood loss/Anemia (transfused 2u PRBC's)
-Acute intraop and postop coagulopathy (Administered 10mg Factor VII); chest packed and kept opened
-Acute postop Pulmonary insufficiency
-Acute postop Metabolic Acidosis, followed by metabolic alkalosis
-Acute postop Lactic acidosis
-IRON
-Cardiac tamponade 03/08/25
Discussed patient care with: Cardiology, Nursing, Respiratory Therapy, Pharmacy and Care Team
Subjective
Procedure
S/p Emergent Redo sternotomy with extensive�adhesiolysis�(Modifier 22 for additional dissection time of 1 hour)/Hemiarch ascending aortic replacement/ Aortic root replacement using a�27 mm�valved conduit/Ligation of left and right coronary ostia as
they were dissected coronary bypass grafting to an acute marginal/Relocation of previous vein grafts onto this acute marginal vein graft/Temporary chest packing, open chest, by Dr. Sullivan,
-
Date of Service: March 12, 2025
Objective Data
-
Lab Results
03/11/25 20:03
03/11/25 20:03
PT 19.3 Sec (11.4-14.6) H 03/11/25 20:02
INR 1.61 03/11/25 20:02
APTT 45.8 Sec (23.4-35.0) H 03/11/25 20:02
Vital Signs
Vital Signs
Temp Pulse Resp BP Pulse Ox
98 F 90 16 92/57 96
03/12/25 02:00 03/12/25 02:30 03/12/25 02:00 03/12/25 02:00 03/12/25 02:30
CT Intake/Output/Weight
03/11/25 03/11/25 03/12/25
06:59 18:59 06:59
Intake Total 1355.2 / 3122.1 1486.1 / 2893.0 1406.9 / 2893.0
Output Total 1343 / 3232 455 / 1162 707 / 1162
Balance 12.2 / -109.9 1031.1 / 1731.0 699.9 / 1731.0
SaO2: 96 (A/C, 500, 16, 5, .40)
Physical Exam
-
General: Other (sedated and intubated )
Cardiovascular: Regular rate & rhythm, No Murmurs, No Rub and No Gallop
Respiratory: Decreased Breath Sounds (at bases, otherwise clear)
Sternum: Stable
Incision: Clean, Dry, Intact and Dressing Intact
Extremities: Edema +2
Data Reviewed
-
Lab Results: Results Reviewed
Medications: Active Meds Reviewed
Chest X-Ray: Report Reviewed and Image Reviewed
CT Scan: Report Reviewed and Image Reviewed
ECG: Report Reviewed and Image Reviewed
[2025-03-12] MEDS: CORDARONE 259 MG IV ×2 (02:59→17:57)
--- NOTE | 2025-03-12 03:54 | W.PN.CARD.SR ---
Sheath/IABP Sheath Removal
Sheath Removal
Right Arterial Femoral:
Site appearance prior to sheath removal: Intact (with dried blood which was sterilely cleaned)
Sheath removed by:: Physician research assistant (Francisco White)
Time of sheath removal: 03:20
Time hemostasis achieved: 03:40
Site appearance post sheath removal: Intact
Method of Hemostasis Post Sheath Removal: External Pressure Device (pressure dressing), Manual Pressure and Sandbag (x2-4hrs)
Dressing dry and intact?: Yes
Comments: able to doppler pt's right DP and PT pulses before and after sheath removal
--- NOTE | 2025-03-12 04:00 | PTCARENOTE ---
CVPA at bedside to remove femoral arterial line. Hemostasis achieved per provider's note and sand bag applied to be removed [id number]. R/L pleural CT output approximately 895 for the shift. See I/O worklist for data. Labs drawn and sent. At this
time, the patient appears comfortable, hemodynamically stable on drips titrated per work list. Await necessary orders based on lab results. Assessment of needs ongoing.
[2025-03-12 04:09] LABS: Glucose - Point of Care 93 mg/dl (70-99)
[2025-03-12 04:28] LABS: B.E. 1.7 mmol/L; HCO3 27.2 mmol/L (21-28); O2 Saturation % 98.4 % (94-98); PCO2 46 mmHg (35-48); PO2 87 mmHg (83-108); Potassium 3.6 mMOL/L (3.5-5.1); Sodium 138 mMOL/L (136-145)
[2025-03-12 04:46] LABS: Fibrinogen 188 MG/DL (199-459)
[2025-03-12 04:54] LABS: LDH 427 U/L (120-246)
[2025-03-12 04:56] LABS: D-Dimer 16.64 ug/mlFEU (0.00-0.50)
[2025-03-12 06:06] LABS: Glucose - Point of Care 87 mg/dl (70-99)
--- NOTE | 2025-03-12 07:15 | W.PN.ANS.POP ---
Anesthesia Post Operative
- Anesthesia Post Op Note
Vital Signs Stable-See Nursing Note: Yes (Vasopressors)
Airway Patent: Yes (Intubated)
Adequate Pain Control: Yes
Change in Mental Status: No (Sedated)
Current Postoperative Nausea & Vomiting: No
Anesthesia Complications: No
General Anesthetic Recall: No
Unplanned Admission: No
Post Op Hydration Adequate: Yes
[2025-03-12 07:56] LABS: Glucose - Point of Care 101 mg/dl (70-99)
--- NOTE | 2025-03-12 08:04 | W.PN.NEPH.PH ---
Today's Communication / Plan
-
No acute dialysis required
Maintain Lasix infusion at 10 mg/h
Follow electrolyte
Maintain pressors to keep MAP at 65 or greater to augment renal perfusion
Assessment/Plan
-
Impression:
Acute type A Aortic dissection with involvement of bilateral coronary ostia and circumferentially around the root with operative repair on 03/08/25
Acute kidney injury
Postoperative cardiogenic shock now on inotropic support
History of CABG x 4 mitral valve repair tricuspid valve repair maze and EVI exclusion on 02/16/2025
Status post Impella placement on 03/08/2025
Lactic acidosis 12.4
Vent dependent respiratory failure
NSVT
Ischemic cardiomyopathy with EF of 45 to 50%
Atrial fibrillation
History of hypertension
Plan:
- Remains on pressor support and inotropic support
-CRRT has been off since early yesterday morning and patient remains nonoliguric on Lasix infusions at 10 mg per hr
- Status post sternotomy washout and closure on 03/11/2025
-Urine output at around 1200 cc on Lasix drip, chest x-ray reviewed this morning personally no overt pulmonary edema
- Patient with obvious peripheral volume overload but tenuous interval vascular volume status
-Pressors requirements lessening but still required to keep MAP at 65 or greater
-Remains intubated with FiO2 of 40%
- prognosis guarded
- Patient remains critically ill requiring multiple pressors arianna Lasix infusion
Total Time Spent with Patient (in minutes): 32 minutes critical care time with patient
-
-
Date of Service: March 12, 2025
CC / HPI / ROS
-
Chief Complaint:
aortic disection
IRON
History of Present Illness:
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
Hemodynamically more stable on multi pressor support as well as inotropic support
Has Impella device
Remains intubated on FiO2 40%
Review of Systems:
nooliguric
Intubated and sedated
weights down
Labs
-
Labs:
WBC 12.8 10^3/uL (4.8-10.8) H 03/11/25 20:03
RBC 3.00 10^6/uL (4.70-6.10) L 03/11/25 20:03
Hgb 9.0 g/dL (13.0-18.0) L 03/11/25 20:03
Hct 28.2 % (39.0-52.0) L 03/11/25 20:03
Plt Count 69 10^3/uL (130-400) L 03/11/25 20:03
eGFR 52.41 03/11/25 20:03
Qud-Z-Xhlgodzcydi Pept 2970 pg/ml 03/04/25 15:44
Albumin 2.0 g/dl (3.5-5.0) L 03/11/25 20:03
Physical Exam
-
Vital Signs:
Vital Signs
Temp Pulse Resp BP Pulse Ox
98 F 91 16 93/57 97
03/12/25 07:00 03/12/25 07:00 03/12/25 07:00 03/12/25 06:00 03/12/25 07:00
Cardiovascular:: Regular rate and rhythm
Respiratory:: Bilateral: Coarse
Lung Excursion:: Normal
Abdomen:: Distended
Bowel Sounds:: None
Extremity Edema:: +1: Bilateral:
Buenrostro Catheter: Yes
Other Findings::
General: Intubated sedated
--- NOTE | 2025-03-12 08:08 | PTCARENOTE ---
assumed care of pt from previous shift RN, snus rhythm on tele w epicardial pacing wires for back up, + peripheral pulses, +3 edema to bilateral lower and upper extremities. Pt opens eyes to verbal stimuli, + cough + gag, pupils +2 equally reactive
to light. Pt spontaneously moves upper and lower extremities. RASS-2, CPOT 0. Right IJ cordis w swan floated to 48, CO 4.0 CI 2.31 PAP 35/20 CVP 11. Bilateral radial alines leveled and zeroed, BP 105/59 (70). Lung sounds course on the right,
diminished on the left, #8 ett/ 24cm at left lip. Oral care completed. VENT SETTINGS: A/C 40%/500/16/+5 PEEP, POX 97%. +hypoactive BS, adams draining yellow, adams care completed, CTx4 w serosanguineous drainage. Impella 5.5 being tolerated at P3.
Surgical sites stable w dressings intact. Labs drawn and sent as ordered. All safety precautions maintained.
DRIPS: Lasix 10mg/hr
Fentanyl 100mcg/hr
Amio 0.5mg/min
Dobutamine 5mcg/kg/min
Propofol 20 mcg/kg/min
Levo 4 mcg/min
Epi 1 mcg/min
Insulin titrated per glycemic protocol
[2025-03-12 08:15] LABS: B.E. 1.9 mmol/L; HCO3 27.2 mmol/L (21-28); O2 Saturation % 98.2 % (94-98); PCO2 45 mmHg (35-48); PO2 89 mmHg (83-108); Potassium 3.6 mMOL/L (3.5-5.1); Sodium 138 mMOL/L (136-145)
--- NOTE | 2025-03-12 08:23 | W.PN.INTV ---
Today's Communication / Plan
Recommendations
Plan for bronchoscopy today + Impella removal
Continue mechanical ventilation, with SBT today. Hopefully he can be extubated today or tomorrow depending on how he does during weaning trial
May need to be extubated to BiPAP to help prevent extubation failure
s/p CRRT, off since AM of 03/11/2025
Vasopressors + inotropes
Goal MAP>65, MVO2>60-65 and CI>2
Goal PAD<18
Pt remains critically ill
Hand Inserter Operator service will continue to follow
Assessment
-
Assessment: 74-year-old male with a past medical history of multivessel CAD s/p CABG, history of severe MR s/p radical mitral valve repair, severe tricuspid valve insufficiency s/p tricuspid valve repair, chronic HFmrEF, hyperlipidemia,
hypertension, paroxysmal A-fib on Eliquis s/p open left atrial maze + left atrial appendage exclusion, hypothyroidism and history of colon adenoma who presents with shortness of breath, poor appetite and ankle swelling. Patient recently had a
cardiothoracic surgery on 02/16 after proceeding left + right heart catheterization on 02/04/2025 showed triple-vessel CAD with mildly elevated biventricular filling pressures. Patient was found to have acute postoperative blood loss anemia,
postoperative coagulopathy and he improved and was able to be discharged home on 02/22/2025. He is now returning with shortness of breath with exertion, lower extremity edema and imaging consistent with acute decompensated heart failure. IV Lasix
started. Echo performed on 03/04/2025 showed reduced EF now at 35-40%, global hypokinesis, with worsening aortic regurgitation from mild/moderate to moderate/severe.He was also started on metoprolol due to NSVT. Given the worsening aortic
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 CT surgery notified and a stat CT
angio chest/abdomen/pelvis was performed confirming an aortic dissection extending throughout the aorta beginning at the root and extending to the aortic bifurcation. There also were small bilateral pleural effusions with other postoperative
changes along the sternum with a possible small hematoma. Patient brought to the OR and underwent a redo sternotomy with extensive adhesiolysis, hemiarch ascending aortic replacement, aortic root replacement, ligation of left and right coronary
ostia as they were dissected, and previous vein grafts were relocated onto the acute marginal vein graft, and his chest was left open. Patient transferred to the CVICU postoperatively, and accounting machine servicer services consulted for additional
management/recommendations.
Chronic conditions DRUPAL ARCHITECT: Multivessel CAD s/p CABG x 4 (02/16/2025), history of severe mitral valve insufficiency s/p radical mitral valve repair (02/16/2025), severe tricuspid valve insufficiency (functional) s/p simple tricuspid valve repair
(02/16/2025), chronic HFmrEF, hyperlipidemia, hypertension, paroxysmal A-fib s/p open left atrial maze + EVI�exclusion (02/16/2025) on Eliquis, mild aortic valve insufficiency secondary to leaflet prolapse, hypothyroidism, history of colon adenoma
Impression:
#Type A aortic dissection with resultant severe aortic regurgitation s/p redo sternotomy with extensive adhesiolysis, moderate hypothermic circulatory arrest, hemiarch ascending aortic replacement, aortic root replacement, ligation of left and right
coronary ostia as they were dissected followed by relocation of previous vein grafts onto acute marginal vein graft, and chest left open (POD #5)
#Cardiogenic shock now on multiple vasopressors and placement of a 5.5 direct aortic Impella LVAD with subsequent chest closure in usual fashion (POD #4)
#Cardiac tamponade with cardiovascular collapse s/p emergent bedside reopening of chest with ligation of IAN with multiple clot evacuation and repacking with vaginal pack + Kerlix and replacement chest tubes (POD #4)
#Mediastinal reexploration/irrigation and removal packing with repositioning of proximal course of GSV graft with placement of 6 mm ringed PTFE graft around proximal segment of GSV graft with replacement of new mediastinal packing and new open chest
dressing placed (POD#4)
#Kinking of single vein graft s/p ligation of IAN + CABG x 1 with aortic Graft to RSVG to RSVG - T-graft (POD #3)
#Ventilator dependent respiratory failure with acute hypoxia
#IRON with proximal right renal artery narrowing with decreased right kidney perfusion (per CTA chest/abdomen/pelvis from 03/07/2025) s/p CRRT (off CRRT since 03/11/2025)
#Postoperative coagulopathy
#Lactic acidosis
#Acute HFrEF exacerbation (present on admission)
#Shock liver with hyperbilirubinemia
#Chronic anemia (baseline 9.5-11 g/dL)
#Multivessel CAD s/p CABG x 4, severe mitral valve insufficiency s/p radical mitral valve repair, severe tricuspid valve insufficiency (functional) s/p simple tricuspid valve repair (all on 02/16/2025)
#Paroxysmal A-fib s/p open left atrial maze + EVI�exclusion (02/16/2025) on Eliquis
Plan:
Patient went back to OR on 03/11 for chest closure and bronchoscopy
Repeat bronch later this AM with Impella removal planned
Ventilator settings reviewed
FiO2 will be weaned to maintain SpO2 >90-94%
Minute ventilation will be adjusted
Arterial blood gases will be monitored
Spontaneous breathing trial will be attempted with hopeful extubation after anesthesia/sedation wear off
prn nebulized bronchodilators - not currently bronchospastic
Pulmonary artery catheter parameters will be followed
Pressors/antihypertensive/inotropes/diuretics will be provided as needed
Maintain MAP>65
Replete electrolytes with K>4, Mg>2
Lactate is now <2mmol/L - continue trending per CT surgery team
Trend MVO2 as well as CI, with goal >65 and >2, respectively while on dobutamine drip
Continue amio gtt
Monitor chest tube output (bilateral pleural chest tubes + mediastinal chest tubes x 2)
Monitor hemoglobin
Monitor platelet count and coags
Transfuse blood products as needed to maintain Hb>7g/dL, plt>50k (given post-operative status)
CT surgery managing chest tubes
Monitor blood sugar to maintain euglycemia with goal BG 110-140
Insulin drip per protocol
Nephrology consulted and given his reduction in UOP since 03/08 - s/p CRRT, stopped on 03/11
Patient underwent bronchoscopy today for airway survey. Culture sent from airway secretions as they appear kang. Patient is currently on Vanco/cefepime
- Would recommend obtaining at least 1 set of blood cultures, as well as urine antigens for Legionella and S. pneumoniae
Aspiration precautions
VAP prevention protocol
DVT prophylaxis: Eliquis currently on hold (last dose morning of 03/07/2025)
Early nutrition when able
Early mobilization
Patient is critically ill; continue management in CVICU - Hand Inserter Operator service will continue to follow along.
Critical care statement: A total of 37 minutes of critical care time was provided for this patient today. This includes management of ventilator, spontaneous breathing trial, arterial blood gases, pressors, of unstable vital signs, evaluation of the
patient at bedside, reviewing the patient's pertinent medical records including radiographs, microbiology, laboratory evaluations, and discussion with primary team and critical care nursing.
Data:
CTA chest/abdomen/pelvis with/without contrast 03/07/2025:
1.There is an aortic dissection extending throughout the aorta beginning at the root and extending to the aortic bifurcation consistent with [place] type A dissection.The aortic branch arteries appear to be supplied off the true lumen. There is
associated moderate narrowing of the descending thoracic aorta and proximal abdominal aorta. Additionally there is narrowing at the proximal right renal artery with associated asymmetrically decreased perfusion of the right kidney.
2. Small bilateral pleural effusions with adjacent atelectasis.
3. Postoperative changes along the sternum with a possible small hematoma.
CXR 03/09/2025:
Stable position of the endotracheal tube, [place] catheter, Impella device, and bilateral chest tubes.
A sternal retractor again projects over the chest.
No focal consolidation, pleural effusion, or pneumothorax. Sternotomy wires and cardiac valve prostheses. Stable cardiomediastinal silhouette. Chronic degenerative changes of the spine.
Subjective Dataa
Subjective Data
Date of Service:
Date of Service: March 12, 2025
Chief Complaint: Hand Inserter Operator Follow Up
Subjective:
Patient was seen and evaluated this morning. Remains intubated. Plan to be bronched this morning with Impella to be turned off. Currently intubated on SIMV at 16/500/5/40% with PIP 24 cmH2O, breathing at 16 breaths/min with VTe 457 cc. Currently
on Bumex at 2 mg/hr, amiodarone at 0.5 mg/min, Levophed at 2 mcg/min, epi at 1 mcg/min, dobutamine at 4.5 mcg/kg/min and insulin drip at 1 unit/hr. BP via left radial A-line: 128/55, right radial A-line: 117/55, PAP 38/21, EtCO2: 33 and CO/CI:
5.0/2.42, respectively. SpO2 is 98%. CRRT has been off since yesterday morning. Chest tubes x [address] He is awake and following commands.
Review of Systems
General: Other (Unobtainable as patient is intubated)
Objective Data
Data Reviewed
Vital Signs / I&O / Oxygen:
Vital Signs
Temp Pulse Resp BP Pulse Ox
98.2 F 91 16 100/50 94
03/12/25 10:00 03/12/25 10:00 03/12/25 10:00 03/12/25 10:00 03/12/25 10:00
Intake and Output
03/11/25 03/12/25 03/13/25
06:59 06:59 06:59
Intake Total 3034.7 / 3122.1 3287.3 / 3377.7 363.4 / 363.4
Output Total 3217 / 3232 1991 375 / 375
Balance -182.3 / -109.9 1295.3 / 1280.7 -11.6 / -11.6
SaO2 [A/C] 97
SaO2 [SIMV] 97
SaO2 94
Physical Exam
General: Respiratory Distress (negative), Comfortable, Chills (negative) and Other (Intubated/sedated)
HEENT: Normocephalic, Anicteric and Other (ETT in place)
Cardiovascular: S1-S2 and Peripheral Edema (+2 lower extremity pitting edema bilaterally)
Respiratory: Wheeze (negative), Crackles (Anteriorly on both lung hanna), Rhonchi (Bilaterally), Non-Labored Respirations, ET Tube (Mechanical breath sounds heard bilaterally), Chest Tube (Bilateral pleural chest tubes + mediastinal chest tubes x
2) and Other (Anterior chest dressing)
GI: Soft, Non Distended, Non Tender and Normal Bowel Sounds
Neurology: Awake, Alert, Tremors (negative) and Other (Following commands)
Skin: Warm, Dry, Cyanosis (negative) and Jaundice (negative)
Labs/Micro/Reports
Lab Data
03/11/25 20:03
03/12/25 07:52
Laboratory Results
03/11/25 03/11/25 03/11/25
12:48 15:48 16:00
PT 19.9 H 20.3 H
INR 1.67 1.72
APTT 51.6 H 50.7 H
pH 7.39 7.38 Cancelled
pCO2 46 47 Cancelled
pO2 94 76 L Cancelled
HCO3 27.8 27.8 Cancelled
O2 Delivery Level Not Reportable Cancelled
03/11/25 03/11/25 03/11/25
17:59 20:02 20:03
PT 19.3 H 19.3 H
INR 1.60 1.61
APTT 49.4 H 45.8 H
pH 7.41 7.41
pCO2 45 43
pO2 79 L 81 L
HCO3 28.5 H 27.3
O2 Delivery Level
03/12/25 03/12/25 03/12/25
00:05 04:18 07:52
PT
INR
APTT
pH 7.40 7.38 7.39
pCO2 43 46 45
pO2 92 87 89
HCO3 26.6 27.2 27.2
O2 Delivery Level
Microbiology
03/11/25 15:48 Nose Nasal Screen MRSA (PCR) - Final
MRSA not detected - performed by PCR methodology.
[2025-03-12] MEDS: PROTONIX IV 40 MG IV (08:34)
[2025-03-12] MEDS: NSS (PRESERVATIVE FREE) 10 ML IV (08:34)
--- NOTE | 2025-03-12 08:53 | W.PN.CD ---
Today's Communication / Plan
-
Wean vent and pressor support as able
cont lasix gtt
Impression / Plan
-
Impression/Plan: 74 yo male with PMH of ICM EF 35-40%, chronic HFrEF, persistent A fib on eliquis, HTN, CAD s/p CABG x 4, MV repair, TV repair, MAZE, and EVI exclusion with Dr. Sullivan (02/16/25); admitted on 03/04/2025 with acute on chronic HFrEF,
subsequently found to have severe AR due to Moses type A aortic dissection.
#Aortic dissection
-Acute, Moses type A w/ involvement of b/l Coronary ostia and circumferentially around the root causing severe AI, distally to the Aorto-iliac bifurcation complicated by shock.
-s/p #27 valved conduit and hemiarch replacement, ligation of L and R coronary ostia as they were dissected; bypass grafting to an acute marginal and relocation of previous vein grafts onto acute marginal vein graft.
-The patient was neurologically intact on POD #1 with high pressor/inotrope requirements. The opportunity was taken to place MCS; now s/p Impella 5.5 insertion.
-CRRT started yesterday.
-Loss of Impella pulsatility lead to TTE guided repositioning. Patient was re-opened at the bedside, revealing clot around the right ventricle and SVG that appeared to compress both. The clot was evacuated (05/08/2025).
-Arterial bleeding was observed from the IAN bed, which was clipped and a sternal wire site which was double ligated with good hemostasis (03/08/2025).
-CI dwindled overnight, improved to 2.06. DIRECTOR EMPLOYEE COMMUNICATIONS = 0.84 [place]. Delphine = 0.8.
-The patient has had several episodes of hypotension, though to be due to compression of the SVG. The patient was taken to OR for placement of a ringed graft to prevent compression (03/09/2025).
-Patient returned to the OR for ligation of the IAN (persistent bleeding) and re-bypass to address the angulation of the original SVG to Diag, which is thought to be leading to his multiple hypotensive episodes (03/09/2025).
-now s/p chest closure and Impella removal
#HFrEF/ICMO
-Acute on chronic in the setting of Type A dissection with moderate/severe AI.
-Weight up 12 kg from baseline.
-volume managed by lasix gtt and intermittent crrt nephro following
-No role for GDMT at this time.
#Heme
-Anemia (s/p 14 units PRBC's to date).
-Acute, post operative but constellation concerning for hemolysis, possibly indicative of pump thrombosis.
-Transfusions as indicated.
-Thrombocytopenia (s/p 6 units of platelets to date).
-Acute (50-60 <-- 75 <-- 83 <-- 72 <-- 50 <-- 84 <-- 106 <-- 131 <-- 205).
-Clearly consumptive, again concerning for hemolysis/pump thrombosis, consider DIC in the context of rising INR.
-LDH remains 470.
-Coagulopathy (s/p 3 units FFP, 2 units of Cryoprecipitate).
-Acute (hovering around 2).
-Notable in the context of ALI but also concerning for consumptive coagulopathy.
-FFP/Cryo to maintain stable INR.
#CAD
-Chronic, stable.
-S/P CABG x 4 (MAGANA to LAD, SVG to OM1 to LPL, SVG to Diag).
-During operation for Ao dissection, the SVG graft was anastomosed to the SVG to diagonal graft and the LMCA/RCA were ligated to prevent further propagation of the dissection plane.
-The current anatomy is MAGANA to LAD, SVG from Ao graft to SVG to diagnoal, sequential SVG Y-graft from diagonal graft to OM1 to LPL.
-All antiplatelet therapy on hold due to thrombocytopenia/coagulopathy.
#Mitral regurgitation
-Chronic, stable
-S/P MV repair (closure of cleft between P2 and P3, free edge remodeling between P3 and commissure, placement of single [place] suture from anterolateral papillary muscle head to P2 and P3, #32 Taylor [employer]io Flex band annuloplasty, SN [id number])
with Dr. Sullivan, 02/16/2025.
#Tricuspid regurgitation
-Chronic, stable.
-S/P TV repair (Simple tricuspid valve repair with #34 Medtronic Triad band annuloplasty, SN [id number]) with Dr. Sullivan, 02/16/2025.
#Atrial fibrillation
-Persistent, currently in NSR vs A flutter
-Rate/rhythm control with amiodarone, s/p MAZE with Dr. Sullivan, 02/16/2025.
-CHADS2-Vasc = 5 (CHF, HTN, Age x2, vascular disease).
-Anti-thrombotic therapy titrated based on coagulopathy, S/P LAAE (#40 AtriClip, SN [id number]) with Dr. Sullivan, 02/16/2025.
#IRON
-Severe, requiring CRRT.
-Management per nephrology.
#ALI
-Severe, multifactorial.
-Component of shock liver, likely a component of hemolysis.
-Avoid hepatotoxic agents.
Critical Care Time = 34 minutes.
Subjective/Interval History:
Converted to NSR vs a flutter
Impella out chest closed
weaning ventilator
DATA:
TTE, 03/04/2025:
SUMMARY
1. Moderately reduced LV systolic function. Ejection fraction is 35-40%. Global hypokinesis.
2. S/p mitral valve repair with peak/mean gradients of 15/5 mmHg. Trace mitral valve regurgitation.
3. Moderate/severe aortic regurgitation. PHT approx 250 msec.
4. S/p tricuspid valve repair with mean gradient of 2 mmHg. Mild tricuspid regurgitation. Estimated PASP 38 mmHg, assuming RAP 8 mmHg. Mildly elevated PASP.
5. Compared to 02/19/25: LVEF is stable in 35-40% range, mitral valve and tricuspid valve repairs are stable; aortic regurgitation has progressed from mild/moderate to moderate/severe.
SAJAN, 03/07/2025:
SUMMARY
1. There is a Moses type A DeBakey class I aortic dissection present.
2. Trileaflet aortic valve. Severe aortic regurgitation due to prolapse of the left vs non coronary cusp and aortic dissection.
3. Low normal ventricular systolic function. LVEF 45-50%.
4. S/p tricuspid valve repair. Trace residual tricuspid regurgitation.
5. S/p mitral valve repair. Trace residual mitral regurgitation.
6. Dr. Sullivan (CT surgery) notified of findings at time of study.
CT surgery, 03/07/2025:
Procedure(s) Performed:
1. Ultrasound-guided access using Seldinger technique 2 the right common femoral artery and vein with percutaneous access using a 25 [place] femoral venous cannula
2. Redo sternotomy with extensive adhesiolysis (Modifier 22 for additional dissection time of 1 hour)
3. Direct aortic cannulation using ultrasound and Seldinger technique with a SAJAN guidance verifying true lumen access
4. Moderate hypothermic circulatory arrest with antegrade cerebral perfusion
5. Hemiarch ascending aortic replacement
6. Aortic root replacement using a 27 mm valved conduit
7. Ligation of left and right coronary ostia as they were dissected coronary bypass grafting to an acute marginal
8. Relocation of previous vein grafts onto this acute marginal vein graft
9. Placement of temporary atrial ventricular pacing wires
10. Transesophageal echocardiography
11. Temporary chest packing, open chest.
Impella Placement, 03/08/2025:
Procedure(s) Performed:
1. The temporary dressing over top of the open chest was removed
2. Placement of atrial pacing wires
3. Anastomosis of a 10 mm straight tube graft off of the ascending aortic graft, graft to graft anastomosis
4. Graft tunneled to the left supra clavicular region between the strap muscles
5. Placement of a 5.5 direct aortic Impella LVAD
6. Chest closure in usual fashion
TTE, 03/08/2025:
SUMMARY
1. TDS.
2. In limited views, left ventricle appears normal sized with severely reduced systolic function. Left ventricle ejection fraction is 25-30% by visual estimation. Global hypokinesis. S/p Impella 5.5 insertion which appears to be appropriately
placed.
3. In limited views right ventricle appears normal sized with mildly reduced systolic function. Right ventricle does appear to expand in diastole.
4. Limited valvular interrogation.
5. Compared to SAJAN earlier in day, overall, no significant change.
Bedside Rexploration, 03/08/2025:
Procedure: Emergency bedside reopening of chest and the loculation of clot ligation of IAN which was the bleeding source, repacking with 1 vaginal pack and Kerlix and replacement of new chest tubes
CT surgery re-exploration, 03/09/2025 (morning):
PROCEDURES:
1. Mediastinal reexploration/irrigation and removal of packing.
2. Repositioning of proximal course of greater saphenous vein graft
with several 6-0 Prolene sutures (placed/subsequently removed).
3. Placement of 6 mm ringed PTFE graft around proximal segment of
greater saphenous vein graft .
4. Replacement of new mediastinal packing (1 vaginal pack and
partial roll of Kerlix; syringe based sternal separation).
5. Reexploration with replacement of new open chest dressing.
CT surgery re-exploration, 03/09/2025 (afternoon):
Procedure(s) Performed:
1. Reopening of temporary chest coverage.
2. Ligation of IAN.
3. Coronary artery bypass grafting x 1 (Aortic Graft to RSVG to RSVG - T-graft).
4. Open vein harvest of the left thigh.
5. Transesophageal echocardiography.
6. Repacking of chest and placement of temporary dressing.
Physical Exam
Vital Signs/Labs
Vital Signs
Temp Pulse Resp BP Pulse Ox
98 F 92 16 87/56 97
03/12/25 08:00 03/12/25 08:00 03/12/25 08:00 03/12/25 08:00 03/12/25 08:28
03/11/25 03/12/25 03/13/25
06:59 06:59 06:59
Actual Weight 225 lb 15.581 oz 214 lb 11.684 oz
03/11/25 20:03
PT 19.3 Sec (11.4-14.6) H 03/11/25 20:02
INR 1.61 03/11/25 20:02
APTT 45.8 Sec (23.4-35.0) H 03/11/25 20:02
Magnesium 2.0 mg/dl (1.6-2.3) 03/11/25 20:03
Triglycerides 70 mg/dl (10-149) 03/10/25 04:33
03/04/25
15:44
Vgc-M-[id number] Pept 2970
Physical Exam
Constitutional: Other (intubated)
EENT: Other (et tube in place )
Cardiovascular: Rhythm & rate is regular (a flutter)
Respiratory: Other (ventilator dependent currently )
GI: Soft
Neuro/Psych: Other (sedated)
Data Reviewed
-
Date of Service: March 12, 2025
Medical Decision Making: Reviewed Test Results
EKG: Tracing Personally Visualized and interpreted (sr vs a flutter)
Labs: Labs Reviewed by me
[2025-03-12 09:03] LABS: Blood Urea Nitrogen 36 mg/dl (9-20); Calcium 7.6 mg/dl (8.4-10.2); Carbon Dioxide 30 mmol/L (22-30); Chloride 108 mmol/L (98-107); Estimated Creatinine Clearance 45 ml/min; Glucose 95 mg/dl (70-99); Potassium 3.7 mmol/L (3.5-5.1); Sodium 138 mmol/L (135-145); eGFR 48.25
--- NOTE | 2025-03-12 09:21 | PHA.VAN.FU ---
Vancomycin Assessment / Plan
- Assessment
Renal Function: SCR Increasing (1.3(10.24) -1.4 (10.24)-1.5 (10.25))
Hemodialysis Schedule: Other ([facility] @ 2 L/H)
WBC's are: Trending Up
In the past 24 hrs, patient has been: Afebrile
Concomitant Antimicrobials: cefepime
- Assessment - Therapeutic Drug Monitoring
Random Level: 16.9 on 03.12 @ 0418
- Dosing Plan
Dosing by Level: Re-dose today (vancomycin 1000 mg x 1)
- Monitoring Plan
Random Level: level ordered for 03.13 @ 0600
- Follow Up
Pharmacy will continue to follow.
Vancomycin Follow UP
- -
Patient Age: 74
Patient Sex: Male
Vancomycin Day #: 5 (obtained consult 03/09)
Indication: Prophylaxis (Surg,Hiv,...)
Requesting Provider: Beau Sands
Pertinent Antimicrobial Allergies:
NKDA
Height / Weight:
Height 5 ft 11 in
Actual Weight 97.4 kg
Pertinent Past Medical History: BMI ~30
- Vital Signs / Lab Results
Temp Pulse Resp BP Pulse Ox
98.1 F 91 16 87/56 100
03/12/25 09:00 03/12/25 09:00 03/12/25 09:00 03/12/25 08:00 03/12/25 09:00
Lab Results - Hematology
03/09/25 03/09/25 03/09/25
09:30 11:27 13:30
WBC Cancelled 11.6 H Cancelled
03/09/25 03/09/25 03/09/25
15:03 17:30 18:38
WBC 11.0 H Cancelled 10.8
03/09/25 03/10/25 03/10/25
21:30 00:23 04:33
WBC Cancelled 11.1 H Cancelled
03/10/25 03/10/25 03/10/25
04:33 08:24 11:43
WBC 10.2 9.0 8.2
03/10/25 03/10/25 03/11/25
15:49 20:00 00:08
WBC 6.8 7.2 8.9
03/11/25 03/11/25 03/11/25
03:57 15:48 20:03
WBC 10.6 12.3 H 12.8 H
Lab Results - Chemistry
03/09/25 03/09/25 03/09/25
09:30 11:27 13:30
BUN Cancelled 34 H Cancelled
Creatinine Cancelled 1.5 H Cancelled
Estimated Creat Clear Cancelled 51 Cancelled
Albumin Cancelled Cancelled
03/09/25 03/09/25 03/09/25
17:08 17:30 20:04
BUN 35 H Cancelled 32 H
Creatinine 1.5 H Cancelled 1.3
Estimated Creat Clear 51 Cancelled 59
Albumin Cancelled
03/09/25 03/10/25 03/10/25
21:30 00:23 04:33
BUN Cancelled 32 H 29 H
Creatinine Cancelled 1.2
Estimated Creat Clear Cancelled 64
Albumin Cancelled
03/10/25 03/10/25 03/10/25
04:33 04:33 04:33
BUN Cancelled
Creatinine 1.2 Cancelled
Estimated Creat Clear 64 Cancelled
Albumin
03/10/25 03/10/25 03/10/25
08:24 11:43 15:49
BUN 28 H 27 H 26 H
Creatinine 1.1 1.1 1.1
Estimated Creat Clear 70 70 70
Albumin
03/10/25 03/11/25 03/11/25
20:00 00:08 03:57
BUN 24 H 24 H 24 H
Creatinine 1.1 1.1
Estimated Creat Clear 70 70
Albumin
03/11/25 03/11/25 03/11/25
03:57 03:57 03:57
BUN Cancelled
Creatinine 1.1 Cancelled
Estimated Creat Clear 70 Cancelled
Albumin 1.9 L
03/11/25 03/11/25 03/11/25
08:32 12:48 12:48
BUN 26 H 28 H 28 H
Creatinine 1.1 1.2
Estimated Creat Clear 71
Albumin
03/11/25 03/11/25 03/11/25
12:48 12:48 15:48
BUN 30 H
Creatinine 1.3 1.3
Estimated Creat Clear 65 60 60
Albumin
03/11/25 03/11/25 03/12/25
17:59 20:03 07:52
BUN 32 H 32 H 36 H
Creatinine 1.3 1.4 H 1.5 H
Estimated Creat Clear 60 56 45
Albumin 2.0 L
03/09/25 03/09/25 03/09/25
05:30 06:00 09:30
Lactic Acid Cancelled Cancelled Cancelled
03/09/25 03/09/25 03/09/25
11:27 12:08 13:30
Lactic Acid 3.1 H 3.2 H Cancelled
03/09/25 03/09/25 03/09/25
15:30 17:08 17:30
Lactic Acid Cancelled 2.3 H Cancelled
03/09/25 03/09/25 03/09/25
19:30 20:03 21:30
Lactic Acid Cancelled 2.1 H Cancelled
03/09/25 03/10/25 03/10/25
23:30 00:23 04:33
Lactic Acid Cancelled 1.5 1.4
03/10/25 03/10/25 03/10/25
08:24 11:43 15:49
Lactic Acid 1.1 1.5 1.0
03/10/25 03/11/25 03/11/25
20:00 00:08 03:57
Lactic Acid 1.0 1.2 1.0
03/11/25 03/11/25 03/11/25
08:32 12:49 15:48
Lactic Acid 0.9 0.9 1.4
03/11/25 03/11/25 03/12/25
17:59 20:03 00:05
Lactic Acid 1.0 0.9 1.0
03/12/25 03/12/25
04:18 07:52
Lactic Acid 1.0 0.8
Microbiology Results
03/11/25 15:48 Nasal Screen MRSA (PCR) - Final
Nose MRSA not detected - performed by PCR methodology.
Therapeutic Drug Monitoring
Random Vancomycin 16.9 ug/ml 03/12/25 04:18
[2025-03-12] MEDS: SUBLIMAZE 100 IV (09:45)
--- NOTE | 2025-03-12 09:52 | W.PN.CT.SURG ---
CT Surgery Operative Note
-
Pre-op Diagnosis: MCS, temporary device, removal bedside
Post-op Diagnosis: Same
Date: 03/12/25
Procedure: 1) Bronchoscopy with sample sent for culture. 2)Removal of 5.5 direct aortic Impella at bedside
Primary Surgeon: Ilan Sullivan MD, MS
Assisting Surgeons: Oscar Jacobs MD (assisted with exposure and control of the graft)
Specimen: Luken's trap, respiratory sample for culture
Cultures: None
Complications / Blood Loss: 50
Findings:
A preoperative timeout was performed with members of the team. The patient is then he was verified. The procedure was verified. With the aid of respiratory therapy, we placed the patient temporary to 100% of FiO2 and then placed a disposable
bronchoscope down and injected lidocaine as well as some saline. His airway seemed actually much better than yesterday. The left and right airways were examined and seemed relatively free of any secretions. Some sampling was performed as there
was some kang fluid secretions. This was caught in a Luken's trap and sent off for specimen. Next, the area around the Impella 5 5 was prepped and draped in usual fashion using Betadine. 2 hemostat clamps were then placed at the base at the level
of the skin incision for control. Device was returned down to P0 and the sutures were then cut. Device was then extracted and the graft was allowed to bleed extracting any clot. The graft was then pulled up so that the intrathoracic portion was
at the level of the skin and this was clamped with a hemostat. 2 heavy silk ties were then placed below the hemostat and multiple large clips were placed low that. The graft was then cut and dunked back underneath the strap muscle. The strap
muscle was then reapproximated with 3-0 Vicryl and 3-0 Vicryl was used to perform a vertical mattress stitch along the incision. This was then dressed over top with a Mepilex dressing. The device was kept intact and was sent back to the
marketing specialist for interrogation. There is no significant change in hemodynamics and he seems to tolerate the procedure well.
Thank you for involving me in the care of this patient. Please feel free to contact me with any questions or concerns.
Ilan Sullivan MD, MS
Cardiothoracic Surgeon
[facility]
This dictation was created using the [employer] dictation system. Please excuse any grammatical, typographical, or 'sound alike' errors.
[2025-03-12 10:09] LABS: Glucose - Point of Care 85 mg/dl (70-99)
[2025-03-12] MEDS: ANCEF IV (10:57)
[2025-03-12] MEDS: BUMEX 100 IV ×2 (11:03→21:03)
--- NOTE | 2025-03-12 11:11 | PTCARENOTE ---
Pt bronched at bedside by Dr. Sullivan & RT. Impella removed by Dr. Sullivan and Dr. Jacobs at bedside. Pt tolerated procedures.
[2025-03-12] MEDS: VANCOCIN 200 IV (11:16)
[2025-03-12 12:10] LABS: Glucose - Point of Care 106 mg/dl (70-99)
--- NOTE | 2025-03-12 12:16 | PTCARENOTE ---
Propofol off, fentanyl dose decreased, pt awakens and follows simple commands. SBT attempted by RT, pt remains apneic. Will reattempt later.
[2025-03-12 14:20] LABS: Glucose - Point of Care 85 mg/dl (70-99)
--- NOTE | 2025-03-12 14:35 | RESPNOTE ---
Respiratory: patient weaned on PSV 8/5 cmH2O for thirty minutes. RSBI was under 50 and EtCO2 was under 40 during the wean. Patient now on SIMV and due for ABG at 1600. RN and N.P. made aware.
--- NOTE | 2025-03-12 14:36 | PTCARENOTE ---
pt tolerated 30 min of CPAP wean, placed on SIMV by RT. Will recheck ABG at 1600.
--- NOTE | 2025-03-12 15:21 | PTCARENOTE ---
pt w increased WOB and agitation, pox into the 80's. Vent settings switched from SIMV to a/c by RT. Propofol restarted. Pt repositioned. RASS currently returned to -2, CPOT 0
[2025-03-12 16:23] LABS: Glucose - Point of Care 100 mg/dl (70-99)
[2025-03-12] MEDS: STERILE WATER FOR INJECTION 10 ML IV (16:35)
[2025-03-12] MEDS: MAXIPIME 2000 MG IV (16:35)
[2025-03-12 16:38] LABS: B.E. -0.1 mmol/L; HCO3 25.9 mmol/L (21-28); O2 Saturation % 96.3 % (94-98); PCO2 48 mmHg (35-48); PO2 78 mmHg (83-108); Potassium 3.5 mMOL/L (3.5-5.1); Sodium 138 mMOL/L (136-145)
[2025-03-12] MEDS: KCL 50 IV ×2 (17:10→17:59)
[2025-03-12] MEDS: NSS IV (17:13)
[2025-03-12 18:15] LABS: Glucose - Point of Care 100 mg/dl (70-99)
[2025-03-12] MEDS: SYNTHROID TUBE (19:07)
--- NOTE | 2025-03-12 19:15 | PTCARENOTE ---
Resumed care of the patient at 1900. Patient remains intubated/sedated, PERRL 2 cm, MCKEE, patient answering yes/no questions appropriately, reponse to voice and tactile stimulation. NSR on CM, rates 80-90's AV wires present - pacer box set to VVI
30/15/0.8, heart tones audible, +3 generalized pitting edema, all peripheral pulses present via Doppler. #8.0 ETT 22 @ the left lip, volume A/C mechanical ventilation 40%/16/500/5 satting 96%+, lungs with fine crackles and rhonchi on the R, much
improved from exam on previous shift, dim throughout on the L, lung expansion symmetrical; CTx4 to -20 cm wall suction, no air leak, tidaling, or crepitus noted. Abdomen SNT, round, hypoactive BS. Buenrostro present draining clear, yellow urine. MSI with
Aquacel CDI scant drainage, CT dressing CDI, R groin dressing from alvin removal - +2 scrotal edema, with ecchymosis, no hematoma noted, all other surgical sites stable and intact; Impella site foam dressing without drainage. RIJ Cordis with Noel @
48, art line x 2 in the B/L radial arteries, L fem Trialysis catheter with a pigtail, PIV x1; all applicable lines leveled, zeroed, and flushed. Pt on insulin, levo, epi, dobut, amio, bumex, fent, and prop. See work list for nursing interventions
and titration data.
[2025-03-12 20:05] LABS: Glucose - Point of Care 90 mg/dl (70-99)
[2025-03-12 20:17] LABS: B.E. 2.2 mmol/L; HCO3 27.8 mmol/L (21-28); O2 Saturation % 98.8 % (94-98); PCO2 47 mmHg (35-48); PO2 95 mmHg (83-108); Potassium 4.0 mMOL/L (3.5-5.1); Sodium 137 mMOL/L (136-145)
[2025-03-12 20:18] LABS: Hematocrit 28.8 % (39.0-52.0); Hemoglobin 9.1 g/dL (13.0-18.0); Mean Corp Hgb Conc. 31.6 g/dL (33.0-37.0); Mean Corpuscular Volume 96.3 fL (80.0-94.0); Platelet Count 85 10^3/uL (130-400); Red Cell Dist. Width 18.1 % (11.5-14.5)
[2025-03-12] MEDS: CALCIUM GLUCONATE 130 MG IV (21:02)
[2025-03-12 22:08] LABS: Glucose - Point of Care 76 mg/dl (70-99)
[2025-03-12] MEDS: FLEXBUMIN 50 IV (22:43)
[2025-03-13] VITALS (14 sets, daily range): BP systolic 85–144; BP diastolic 45–91; BMI 31.3
[2025-03-13 00:11] LABS: Glucose - Point of Care 84 mg/dl (70-99)
--- NOTE | 2025-03-13 00:15 | PTCARENOTE ---
Addendum entered by Ginna Fya RN 03/13/25 00:32:
Propofol reduced to 15 mcg/kg/min per CVPA.
Original Note:
~2200 - advised to titrate levo to off if possible with systolic goal >90 rather than based on MAP. Levo held around 2215 and at ~2245 was hypotensive to 87 systolic per the R radial alvin; restarted on 1 of levo. Maintained at 1 at this time.
Discussed with CVPA.
Patient received calcium gluconate as well as 25% albumin. Initially CO/CI was 3.78 and 1.8 prior to these infusions at ~2020. CVPA aware; advised to recheck after pt had received both. At the time of this note, CO/CI 5.47 and 2.63. Awaiting orders
to titrate gtts per CVPA.
PT RASS -2, arouses with tactile stimulation and voice, continues to answer yes/no questions. Calming therapeutic environment provided. Assessment of needs ongoing.
[2025-03-13] MEDS: DIPRIVAN 100 IV ×2 (01:30→05:11)
[2025-03-13] MEDS: DOBUTREX 250 IV (02:05)
[2025-03-13 02:12] LABS: Glucose - Point of Care 82 mg/dl (70-99)
--- NOTE | 2025-03-13 03:57 | W.PN.CT ---
Today's Communication / Plan
-
Plan:
-No major issues overnight. Hemodynamically intact
-Remains intubated on Propofol and Fentanyl
-Current vent settings: A/C, 500, 16, 5, .40
-Dobutamine @ 3.5, Epinephrine @ 1, Bumex gtt @ 2 mg/hr, Fentanyl @ 75, Propofol @ 15, Amiodarone @ 0.5; weaned off Levophed last night, vasopressin has been off
-Impella was weaned and d/c'd at bedside by Dr. Sullivan yesterday 03/12/25
-Last CI 2.89, MVO2 73.2% on Dobut @ 4
-Underwent Bronchoscopy at bedside by Dr. Sullivan yesterday 03/12/25, f/u culture. F/U cxr
-Underwent chest washout/closure and bronchoscopy with lavage yesterday 03/11/25
-Remains on empiric Vancomycin and Cefepime
-Monitor chest tube output for possible D/C: 2meds 145/265, R/l Pleurals 200/380
-Monitor h/h 8.4/26.5
-Monitor plts 67K
-Monitor cr 1.8, up from 1.5
-Replete K, 3.7
-Elevate scrotum in light of scrotal edema
-Holding BB while on dobutamine and hypotensive
-Holding PO meds while intubated
-Wean off sedation
-CPAP trials
-Wean off Epinephrine today
-Wean off dobutamine as tolerated
-Will d/c swan and a-line once off dobutamine
-Maintain adams catheter for accurate I/O's while on dobutamine
-Maintain cordis
-Maintain temporary v-wire
-D/C'd right femoral artery groin sheath and right femoral vein puncture site retention suture without incident 03/12/25
-Consider D/C of left groin triple lumen central line
-OOB into chair/Ambulate when able to extubate
-Consider nutritional intake, prealbumin
-Eventual resumption of Eliquis for PAF hx
Assessment / Plan
-
Assessment:
-S/p Emergent Redo sternotomy with extensive adhesiolysis (Modifier 22 for additional dissection time of 1 hour)/Hemiarch ascending aortic replacement/ Aortic root replacement using a 27 mm valved conduit/Ligation of left and right coronary ostia as
they were dissected coronary bypass grafting to an acute marginal/Relocation of previous vein grafts onto this acute marginal vein graft/Temporary chest packing, open chest, by Dr. Sullivan, 03/07/25, pod#6
-S/p placement of a 5.5 direct aortic Impella LVAD on 03/08/[address] Sullivan
-Cardic tamponade/ Cardiovascular collapse- s/p Emergency bedside reopening of chest and the evacuation of clot; ligation of IAN, which was the bleeding source; repacking with 1 vaginal pack and Kerlix; replacement of new chest tubes by Dr. Sullivan on
03/08/25
S/p�mediastinal�reexploration/irrigation and placement of�6mm�ringed PTFE graft around the greater�saphaenous�graft. ���S/P�Emergent�Ligation of IAN, Coronary artery bypass grafting x 1 (Aortic Graft to RSVG to RSVG - T-graft)�03/09
-S/P Washout with antibiotic solution inspection of all surgical sites and closure with wires and plates, by Dr. Sullivan, 03/11/25
-S/P Endotracheal bronchoscopy with lavage, by Dr. Carpenter, 03/07/25
-S/p Impella was weaned and d/c'd at bedside by Dr. Sullivan 03/12/25
-S/P Bronchoscopy at bedside by Dr. Sullivan 03/12/25
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
-Worsening of aortic valve insufficiency to severe secondary to dissection
-Acute on chronic congestive heart failure with volume overload secondary to new aortic valve insufficiency
-Hypertension
-Hyperlipidemia
-Hypothyroidism
-AFIB on Eliquis
-Ischemic CM
-Recent cardiac surgery over 20 days ago
-Mitral valve insufficiency status post repair
-Tricuspid insufficiency status post repair
-Coronary artery disease status post CABG
-S/P CABG x 4, MV repair, TV repair, MAZE, and EVI exclusion, Dr. Sullivan 02/16/25, Readmitted for SOB on 03/04
-Acute intraop/postop blood loss/Anemia (transfused 14u PRBC's)
-Acute intraop and postop coagulopathy (Administered 10mg Factor VII, 4 of cryo and 11 FFP ); chest packed and kept opened until 03/11/25
-Acute postop thrombocytopenia (transfused 11 {5pks} plts)
-Acute postop Pulmonary insufficiency
-Acute postop VDRF
-Acute postop Metabolic Acidosis, followed by metabolic alkalosis
-Acute postop Lactic acidosis
-IRON
-Cardiac tamponade 03/08/25
-Acute postop cardiogenic shock
-Acute postop scrotal edema
Discussed patient care with: Cardiology, Nursing, Respiratory Therapy, Pharmacy and Care Team
Subjective
-
Date of Service: March 13, 2025
Pt sedated and intubated overnight
Objective Data
-
PT 19.3 Sec (11.4-14.6) H 03/11/25 20:02
INR 1.61 03/11/25 20:02
APTT 45.8 Sec (23.4-35.0) H 03/11/25 20:02
Vital Signs
Vital Signs
Temp Pulse Resp BP Pulse Ox
98.6 F 106 16 99/53 96
03/13/25 03:00 03/13/25 03:10 03/13/25 03:00 03/13/25 02:29 03/13/25 03:10
CT Intake/Output/Weight
03/12/25 03/12/25 03/13/25
06:59 18:59 06:59
Intake Total 1801.2 / 3377.7 1408.8 / 2208.0 799.2 / 2208.0
Output Total 153 / 2096 131 / 0 755 / 2069
Balance 264.2 / 1280.7 93.8 / 138.0 44.2 / 138.0
SaO2: 96 (A/C, 500, 16, 5, .40)
Physical Exam
-
General: Awake, Oriented and AOx3
Cardiovascular: Regular rate & rhythm, No Murmurs, No Rub and No Gallop
Respiratory: Decreased Breath Sounds (at bases, otherwise clear)
Sternum: Stable
Incision: Clean, Dry, Intact and Dressing Intact
Extremities: Edema +2
Data Reviewed
-
Lab Results: Results Reviewed
Medications: Active Meds Reviewed
Chest X-Ray: Report Reviewed and Image Reviewed
ECG: Report Reviewed and Image Reviewed
--- NOTE | 2025-03-13 04:15 | PTCARENOTE ---
Addendum entered by Ginna Fay RN 03/13/25 04:41:
Dobut weaned to 3.5 mcg/kg/hr per CVPA based on MVO2 results.
Original Note:
Pt hemodynamically stable off of Levophed. Placed on standby at 0230. Other gtts as listed in the work list. Pt periodically awakens with eyes open, answers questions but slow to respond, and is calm. Occasionally initiates his own breaths.
Intermittent cough. Labs drawn and sent. Assessment of needs ongoing, RN remains at bedside, see work list for additional intervention details.
[2025-03-13 04:19] LABS: Glucose - Point of Care 102 mg/dl (70-99)
[2025-03-13 04:30] LABS: B.E. 1.2 mmol/L; HCO3 26.6 mmol/L (21-28); O2 Saturation % 98.9 % (94-98); PCO2 45 mmHg (35-48); PO2 86 mmHg (83-108); Potassium 3.8 mMOL/L (3.5-5.1)
[2025-03-13 04:42] LABS: Hematocrit 26.5 % (39.0-52.0); Hemoglobin 8.4 g/dL (13.0-18.0); Mean Corp Hgb Conc. 31.7 g/dL (33.0-37.0); Mean Corpuscular Volume 98.5 fL (80.0-94.0); Platelet Count 67 10^3/uL (130-400); Red Cell Dist. Width 17.9 % (11.5-14.5)
[2025-03-13 04:47] LABS: INR 1.44; PT 17.8 Sec (11.4-14.6)
[2025-03-13 05:00] LABS: ALT (SGPT) 40 U/L (0-50); AST (SGOT) 95 U/L (17-59); Albumin 1.9 g/dl (3.5-5.0); Alkaline Phosphatase 207 U/L (38-126); Blood Urea Nitrogen 43 mg/dl (9-20); Calcium 7.8 mg/dl (8.4-10.2); Carbon Dioxide 28 mmol/L (22-30); Chloride 108 mmol/L (98-107); Estimated Creatinine Clearance 38 ml/min; Glucose 92 mg/dl (70-99); Magnesium 2.0 mg/dl (1.6-2.3); Potassium 3.7 mmol/L (3.5-5.1); Sodium 136 mmol/L (135-145); Total Protein 4.1 g/dl (6.3-8.2); Triglycerides 111 mg/dl (10-149); eGFR 38.77
[2025-03-13 05:06] LABS: Prealbumin (Transthyretin) 4.7 mg/dl (17.6-36.0)
[2025-03-13 06:08] LABS: Glucose - Point of Care 79 mg/dl (70-99)
[2025-03-13] MEDS: CALCIUM GLUCONATE 100 IV (06:15)
[2025-03-13] MEDS: CORDARONE 259 MG IV ×2 (06:21→21:14)
[2025-03-13] MEDS: SUBLIMAZE 100 IV (06:23)
--- NOTE | 2025-03-13 06:30 | PTCARENOTE ---
Patient dumped into CTs when being turned on his side for linen change. Skin friable. Noted a small purpura monique along pt's spine on his mid back. Very small petechial marking along the R gluteal cleft, distal to coccyx. Pt's scrotum more ecchymotic
and edematous that earlier in the shift. CVPA made aware.
Per Dr. Sullivan in AM:
Bumex off
Fent off
Prop off
Give albumin
See work list and MAR
[2025-03-13] MEDS: FLEXBUMIN 50 IV (07:10)
--- NOTE | 2025-03-13 07:44 | W.PN.INTV ---
Today's Communication / Plan
Recommendations
CXR today shows worsening opacification in the right hemithorax, likely due to atelectasis as PAD remains <18 and CVP is 6
Follow-up respiratory culture from bronchoscopy on 03/12 (growing GNR)
Continue Vanco/cefepime
Would obtain at least 1 set of blood cultures
Daily SBT and would ideally do PS: 5, PEEP: 5, and would consider extubation to BiPAP especially if blood gas during SBT shows acute hypercapnia (unless copious secretions, then would avoid PAP)
s/p CRRT, off since AM of 03/11/2025
Vasopressors + inotropes
Goal MAP>65, MVO2>60-65 and CI>2
Goal PAD<18
Pt remains critically ill
Garment Cutter service will continue to follow
Assessment
-
Assessment: 74-year-old male with a past medical history of multivessel CAD s/p CABG, history of severe MR s/p radical mitral valve repair, severe tricuspid valve insufficiency s/p tricuspid valve repair, chronic HFmrEF, hyperlipidemia,
hypertension, paroxysmal A-fib on Eliquis s/p open left atrial maze + left atrial appendage exclusion, hypothyroidism and history of colon adenoma who presents with shortness of breath, poor appetite and ankle swelling. Patient recently had a
cardiothoracic surgery on 02/16 after proceeding left + right heart catheterization on 02/04/2025 showed triple-vessel CAD with mildly elevated biventricular filling pressures. Patient was found to have acute postoperative blood loss anemia,
postoperative coagulopathy and he improved and was able to be discharged home on 02/22/2025. He is now returning with shortness of breath with exertion, lower extremity edema and imaging consistent with acute decompensated heart failure. IV Lasix
started. Echo performed on 03/04/2025 showed reduced EF now at 35-40%, global hypokinesis, with worsening aortic regurgitation from mild/moderate to moderate/severe.He was also started on metoprolol due to NSVT. Given the worsening aortic
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 CT surgery notified and a stat CT
angio chest/abdomen/pelvis was performed confirming an aortic dissection extending throughout the aorta beginning at the root and extending to the aortic bifurcation. There also were small bilateral pleural effusions with other postoperative
changes along the sternum with a possible small hematoma. Patient brought to the OR and underwent a redo sternotomy with extensive adhesiolysis, hemiarch ascending aortic replacement, aortic root replacement, ligation of left and right coronary
ostia as they were dissected, and previous vein grafts were relocated onto the acute marginal vein graft, and his chest was left open. Patient transferred to the CVICU postoperatively, and incident handler services consulted for additional
management/recommendations.
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
(02/16/2025), chronic HFmrEF, hyperlipidemia, hypertension, paroxysmal A-fib s/p open left atrial maze + EVI�exclusion (02/16/2025) on Eliquis, mild aortic valve insufficiency secondary to leaflet prolapse, hypothyroidism, history of colon adenoma
Impression:
#Type A aortic dissection with resultant severe aortic regurgitation s/p redo sternotomy with extensive adhesiolysis, moderate hypothermic circulatory arrest, hemiarch ascending aortic replacement, aortic root replacement, ligation of left and right
coronary ostia as they were dissected followed by relocation of previous vein grafts onto acute marginal vein graft, and chest left open (POD #6)
#Cardiogenic shock now on multiple vasopressors and placement of a 5.5 direct aortic Impella LVAD with subsequent chest closure in usual fashion (POD #5)
#Cardiac tamponade with cardiovascular collapse s/p emergent bedside reopening of chest with ligation of IAN with multiple clot evacuation and repacking with vaginal pack + Kerlix and replacement chest tubes (POD #5)
#Mediastinal reexploration/irrigation and removal packing with repositioning of proximal course of GSV graft with placement of 6 mm ringed PTFE graft around proximal segment of GSV graft with replacement of new mediastinal packing and new open chest
dressing placed (POD#5)
#Kinking of single vein graft s/p ligation of IAN + CABG x 1 with aortic Graft to RSVG to RSVG - T-graft (POD #4)
#Ventilator dependent respiratory failure with acute hypoxia
#IRON with proximal right renal artery narrowing with decreased right kidney perfusion (per CTA chest/abdomen/pelvis from 03/07/2025) s/p CRRT (off CRRT since 03/11/2025)
#Postoperative coagulopathy
#Lactic acidosis � resolved since 03/10/2025
#Acute HFrEF exacerbation (present on admission)
#Shock liver with hyperbilirubinemia � improved
#Chronic anemia (baseline 9.5-11 g/dL)
#Multivessel CAD s/p CABG x 4, severe mitral valve insufficiency s/p radical mitral valve repair, severe tricuspid valve insufficiency (functional) s/p simple tricuspid valve repair (all on 02/16/2025)
#Paroxysmal A-fib s/p open left atrial maze + EVI�exclusion (02/16/2025) on Eliquis
Plan:
Patient went back to [facility] on 03/11 for chest closure and bronchoscopy
On 03/12, he went to [facility] for repeat bronchoscopy with Impella removal on 03/12 -respiratory sample sent for cultures (growing GNR � follow up species)
Ventilator settings reviewed
FiO2 will be weaned to maintain SpO2 >90-94%
Minute ventilation will be adjusted
Arterial blood gases will be monitored
Spontaneous breathing trial daily as tolerated - ideally do PS: 5, CPAP: 5 and given his mild acute hypercapnia, would extubate to BiPAP once he is ready for extubation (unless has copious secretions)
prn nebulized bronchodilators - not currently bronchospastic
Pulmonary artery catheter parameters will be followed
Pressors/antihypertensive/inotropes/diuretics will be provided as needed
Maintain MAP>65
Replete electrolytes with K>4, Mg>2
Lactate is now <2mmol/L - defer further trending per CT surgery team
Trend MVO2 as well as CI, with goal >65 and >2, respectively while on dobutamine drip
Continue amio gtt
Monitor chest tube output (bilateral pleural chest tubes + mediastinal chest tubes x 2)
Monitor hemoglobin
Monitor platelet count and coags
Transfuse blood products as needed to maintain Hb>7g/dL, plt>50k (given post-operative status)
CT surgery managing chest tubes
Monitor blood sugar to maintain euglycemia with goal BG 110-140
Insulin drip per protocol
Nephrology consulted and given his reduction in UOP since 03/08 - s/p CRRT, stopped on 03/11
Patient underwent bronchoscopy on 03/12 for airway survey. Culture sent from airway secretions as they appeared kang. Patient is currently on Vanco/cefepime
- Respiratory Cx growing GNR from bronch - follow up species and sensitivities; urine antigens for Legionella + strep pneumonia both negative
- Would recommend obtaining at least 1 set of blood cultures
Aspiration precautions
VAP prevention protocol
DVT prophylaxis: Eliquis currently on hold (last dose morning of 03/07/2025)
Early nutrition when able
Early mobilization
Patient is critically ill; continue management in CVICU - Garment Cutter service will continue to follow along.
Critical care statement: A total of 41 minutes of critical care time was provided for this patient today. This includes management of ventilator, spontaneous breathing trial, arterial blood gases, pressors, of unstable vital signs, evaluation of the
patient at bedside, reviewing the patient's pertinent medical records including radiographs, microbiology, laboratory evaluations, and discussion with primary team and critical care nursing.
Data:
CTA chest/abdomen/pelvis with/without contrast 03/07/2025:
1.There is an aortic dissection extending throughout the aorta beginning at the root and extending to the aortic bifurcation consistent with Concord type A dissection.The aortic branch arteries appear to be supplied off the true lumen. There is
associated moderate narrowing of the descending thoracic aorta and proximal abdominal aorta. Additionally there is narrowing at the proximal right renal artery with associated asymmetrically decreased perfusion of the right kidney.
2. Small bilateral pleural effusions with adjacent atelectasis.
3. Postoperative changes along the sternum with a possible small hematoma.
CXR 03/09/2025:
Stable position of the endotracheal tube, [place]-Fabio catheter, Impella device, and bilateral chest tubes.
A sternal retractor again projects over the chest.
No focal consolidation, pleural effusion, or pneumothorax. Sternotomy wires and cardiac valve prostheses. Stable cardiomediastinal silhouette. Chronic degenerative changes of the spine.
Subjective Dataa
Subjective Data
Date of Service:
Date of Service: March 13, 2025
Chief Complaint: Garment Cutter Follow Up
Subjective:
Patient seen this morning, and he remains intubated - currently on a CPAP trial PS: 8, PEEP 5, with FiO2 50%. PIP 14 cmH2O with VTe 365 cc and breathing at 24 breaths/minute. He is drowsy but easily arousable, following commands and nods his head
yes that he wants the tube out of his throat.
Currently on dobutamine drip at 3.5 mcg/kg/min, insulin drip at 1.2 units/hr, amiodarone at 0.5 mg/min and Bumex drip at 1 mg/hr. BP via right radial A-line: 124/55, left radial A-line: 117/54, PAP 35/14, CO/CI: 5.92/2.85, HR: 85 and SpO2: 97%.
Bilateral pleural chest tubes + mediastinal chest tubes x [address]
Review of Systems
General: Other (Unobtainable - patient intubated)
Objective Data
Data Reviewed
Vital Signs / I&O / Oxygen:
Vital Signs
Temp Pulse Resp BP Pulse Ox
98.4 F 86 16 86/47 97
03/13/25 07:00 03/13/25 07:00 03/13/25 07:00 03/13/25 06:00 03/13/25 07:00
Intake and Output
03/12/25 03/13/25 03/14/25
06:59 06:59 06:59
Intake Total 3287.3 / 3377.7 2434.6 / 2668.4 233.8 / 233.8
Output Total 1991 2475 / 2570 95 / 95
Balance 1295.3 / 1280.7 -40.4 / 98.4 138.8 / 138.8
SaO2 [A/C] 95
SaO2 [SIMV] 93
SaO2 97
Physical Exam
General: Respiratory Distress (negative), Comfortable, Chills (negative) and Other (Intubated/sedated)
HEENT: Normocephalic, Anicteric and Other (ETT in place)
Cardiovascular: S1-S2 and Peripheral Edema (+2 lower extremity pitting edema bilaterally)
Respiratory: Wheeze (negative), Crackles (Anteriorly on both lung hanna), Rhonchi (Bilaterally (L >R)), Non-Labored Respirations, ET Tube (Mechanical breath sounds heard bilaterally), Chest Tube (Bilateral pleural chest tubes + mediastinal chest
tubes x 2), Other (Anterior chest dressing) and Other (Slightly diminished breath sounds in the right lateral hemithorax)
GI: Soft, Non Distended, Non Tender and Normal Bowel Sounds
Neurology: Awake, Alert, Tremors (negative) and Other (Following commands)
Skin: Warm, Dry, Cyanosis (negative) and Jaundice (negative)
Labs/Micro/Reports
Lab Data
03/13/25 04:21
03/13/25 04:21
Laboratory Results
03/12/25 03/12/25 03/12/25
07:52 12:00 16:18
PT
INR
pH 7.39 Cancelled 7.34 L
pCO2 45 Cancelled 48
pO2 89 Cancelled 78 L
HCO3 27.2 Cancelled 25.9
O2 Delivery Level Cancelled
03/12/25 03/13/25
20:08 04:21
PT 17.8 H
INR 1.44
pH 7.38 7.38
pCO2 47 45
pO2 95 86
HCO3 27.8 26.6
O2 Delivery Level
Microbiology
03/12/25 11:30 Urine Legionella Urinary Antigen - Final
Negative for Legionella pneumophila Serogroup 1 antigen.
A negative result does not rule out the possiblity of
Legionella infection due to other serogroups or species of
Legionella. Clinical correlation is recommended.
03/12/25 11:30 Urine Streptococcus pneumoniae Antigen (M - Final
Negative for Streptococcus pneumoniae antigen.
A negative result does not exclude infection with
Streptococcus pneumoniae. Clinical correlation is
recommended.
03/12/25 11:30 Endotracheal Gram Stain - Preliminary
03/11/25 15:48 Nose Nasal Screen MRSA (PCR) - Final
MRSA not detected - performed by PCR methodology.
[2025-03-13 08:07] LABS: Glucose - Point of Care 92 mg/dl (70-99)
--- NOTE | 2025-03-13 08:19 | W.PN.NEPH.PH ---
Today's Communication / Plan
-
Bumex drip
Maintain MAP 65
No need to reinitiate CRRT at this time
Assessment/Plan
-
Impression:
Acute type A Aortic dissection with involvement of bilateral coronary ostia and circumferentially around the root with operative repair on 03/08/25
Acute kidney injury
Postoperative cardiogenic shock now on inotropic support
History of CABG x 4 mitral valve repair tricuspid valve repair maze and EVI exclusion on 02/16/2025
Status post Impella placement on 03/08/2025
Lactic acidosis 12.4
Vent dependent respiratory failure
NSVT
Ischemic cardiomyopathy with EF of 45 to 50%
Atrial fibrillation
History of hypertension
Plan:
- Remains only now on inotropic support of dobutamine
-Creatinine up to 1.8, has been off CRRT since a.m. of 03/11/2025
-Nonoliguric around 1750 cc but weights rise
- loop drip was changed to Bumex at 1 mg/h, will check back later this afternoon and if without adequate diuresis can increase to 2 mg/h and provide 500 mg IV Diuril
- Status post sternotomy washout and closure on 03/11/2025
- Chest x-ray personally reviewed this morning no overt pulmonary edema possible small right effusion
- Patient with obvious peripheral volume overload but tenuous interval vascular volume status
-Pressors requirements currently off but still need to keep MAP at 65 or greater, IV albumin as provide at this
-Remains intubated with FiO2 of 40%
- prognosis guarded
- Patient remains critically ill requiring inotropic and diuretic infusion
-
-
Date of Service: March 13, 2025
CC / HPI / ROS
-
Chief Complaint:
aortic disection
IRON
History of Present Illness:
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
Hemodynamically more stable on inotropic support, pressors currently off
Creatinine up to 1.8, CRRT was discontinued on a.m. of 03/11/2025
Remains intubated on FiO2 40%
Review of Systems:
non oliguric
Intubated and sedated but arousable and neurologically intact per nursing
weights up
Chest tubes
Labs
-
Labs:
WBC 13.7 10^3/uL (4.8-10.8) H 03/13/25 04:21
RBC 2.69 10^6/uL (4.70-6.10) L 03/13/25 04:21
Hgb 8.4 g/dL (13.0-18.0) L 03/13/25 04:21
Hct 26.5 % (39.0-52.0) L 03/13/25 04:21
Plt Count 67 10^3/uL (130-400) L D 03/13/25 04:21
Sodium 136 mmol/L (135-145) 03/13/25 04:21
Potassium 3.7 mmol/L (3.5-5.1) 03/13/25 04:21
Chloride 108 mmol/L (98-107) H 03/13/25 04:21
Carbon Dioxide 28 mmol/L (22-30) 03/13/25 04:21
BUN 43 mg/dl (9-20) H 03/13/25 04:21
Creatinine 1.8 mg/dL (0.7-1.3) H 03/13/25 04:21
eGFR 38.77 03/13/25 04:21
Glucose 92 mg/dl (70-99) 03/13/25 04:21
Calcium 7.8 mg/dl (8.4-10.2) L 03/13/25 04:21
Phosphorus Cancelled 03/12/25 20:00
Xaw-O-Tngpnvkocoe Pept 2970 pg/ml 03/04/25 15:44
Albumin 1.9 g/dl (3.5-5.0) L 03/13/25 04:21
Physical Exam
-
Vital Signs:
Vital Signs
Temp Pulse Resp BP Pulse Ox
98.4 F 86 16 86/47 96
03/13/25 07:00 03/13/25 07:00 03/13/25 07:00 03/13/25 06:00 03/13/25 07:47
Cardiovascular:: Regular rate and rhythm
Respiratory:: Bilateral: Coarse
Lung Excursion:: Normal
Abdomen:: Distended
Bowel Sounds:: None
Extremity Edema:: +1: Bilateral:
Buenrostro Catheter: Yes
Other Findings::
General: Intubated sedated
Chest: Chest tube
--- NOTE | 2025-03-13 08:22 | PHA.VAN.FU ---
Vancomycin Assessment / Plan
- Assessment
Renal Function: SCR Increasing
Hemodialysis Schedule: Other ([facility] currently on hold)
WBC's are: Trending Up
In the past 24 hrs, patient has been: Afebrile
Concomitant Antimicrobials: Cefepime
- Dosing Plan
Dosing by Level: Hold off on dosing today (Random level was 18.4 ~17 hours after last dose administered)
- Monitoring Plan
Random Level: ordered for 03/14 with am labs
- Follow Up
Pharmacy will continue to follow.
Vancomycin Follow UP
- -
Patient Age: 74
Patient Sex: Male
Vancomycin Day #: 6 (obtained consult 03/09)
Indication: Prophylaxis (Surg,Hiv,...)
Requesting Provider: Beau Sands
Pertinent Antimicrobial Allergies:
NKDA
Height / Weight:
Height 5 ft 11 in
Actual Weight 101.6 kg
Pertinent Past Medical History: BMI ~30
- Vital Signs / Lab Results
Temp Pulse Resp BP Pulse Ox
98.4 F 84 16 107/54 96
03/13/25 08:00 03/13/25 08:10 03/13/25 07:00 03/13/25 08:00 03/13/25 08:10
Lab Results - Hematology
03/10/25 03/10/25 03/10/25
08:24 11:43 15:49
WBC 9.0 8.2 6.8
03/10/25 03/11/25 03/11/25
20:00 00:08 03:57
WBC 7.2 8.9 10.6
03/11/25 03/11/25 03/12/25
15:48 20:03 20:08
WBC 12.3 H 12.8 H 12.8 H
03/13/25
04:21
WBC 13.7 H
Lab Results - Chemistry
03/10/25 03/10/25 03/10/25
08:24 11:43 15:49
BUN 28 H 27 H 26 H
Creatinine 1.1 1.1 1.1
Estimated Creat Clear 70 70 70
Albumin
03/10/25 03/11/25 03/11/25
20:00 00:08 03:57
BUN 24 H 24 H 24 H
Creatinine 1.1 1.1
Estimated Creat Clear 70 70
Albumin
03/11/25 03/11/25 03/11/25
03:57 03:57 03:57
BUN Cancelled
Creatinine 1.1 Cancelled
Estimated Creat Clear 70 Cancelled
Albumin 1.9 L
03/11/25 03/11/25 03/11/25
08:32 12:48 12:48
BUN 26 H 28 H 28 H
Creatinine 1.1 1.2
Estimated Creat Clear 71
Albumin
03/11/25 03/11/25 03/11/25
12:48 12:48 15:48
BUN 30 H
Creatinine 1.3 1.3
Estimated Creat Clear 65 60 60
Albumin
03/11/25 03/11/25 03/12/25
17:59 20:03 07:52
BUN 32 H 32 H 36 H
Creatinine 1.3 1.4 H 1.5 H
Estimated Creat Clear 60 56 45
Albumin 2.0 L
03/13/25
04:21
BUN 43 H
Creatinine 1.8 H
Estimated Creat Clear 38
Albumin 1.9 L
03/10/25 03/10/25 03/10/25
08:24 11:43 15:49
Lactic Acid 1.1 1.5 1.0
03/10/25 03/11/25 03/11/25
20:00 00:08 03:57
Lactic Acid 1.0 1.2 1.0
03/11/25 03/11/25 03/11/25
08:32 12:49 15:48
Lactic Acid 0.9 0.9 1.4
03/11/25 03/11/25 03/12/25
17:59 20:03 00:05
Lactic Acid 1.0 0.9 1.0
03/12/25 03/12/25 03/12/25
04:18 07:52 12:00
Lactic Acid 1.0 0.8 Cancelled
03/12/25 03/13/25
16:00 04:21
Lactic Acid Cancelled 0.9
Microbiology Results
03/12/25 11:30 Legionella Urinary Antigen - Final
Urine Negative for Legionella pneumophila Serogroup 1 antigen.
A negative result does not rule out the possiblity of
Legionella infection due to other serogroups or species of
Legionella. Clinical correlation is recommended.
Streptococcus pneumoniae Antigen (M - Final
Negative for Streptococcus pneumoniae antigen.
A negative result does not exclude infection with
Streptococcus pneumoniae. Clinical correlation is
recommended.
03/12/25 11:30 Gram Stain - Preliminary
Endotracheal
03/11/25 15:48 Nasal Screen MRSA (PCR) - Final
Nose MRSA not detected - performed by PCR methodology.
Therapeutic Drug Monitoring
Random Vancomycin 18.4 ug/ml 03/13/25 04:21
[2025-03-13] MEDS: FLEXBUMIN 100 IV (08:25)
[2025-03-13] MEDS: NSS (PRESERVATIVE FREE) 10 ML IV (08:26)
[2025-03-13] MEDS: PROTONIX IV 40 MG IV (08:26)
--- NOTE | 2025-03-13 08:30 | PTCARENOTE ---
Recieved bedside report at 0700. Patient intubated awake and nodding apropriatelyto RN's questions, NSR on monitor w/ AV wires +3 generalized pitting edema in all 4 extremeties,doppler all preipheral pulses. SIMV ETT tube 8.0 2224 @ the left lip,
16/500/5/40% O2 sat 98%, lung sounds rhonchi & fine crackles on the R, L rhonchi CTx4 to -20 cm wall suction; GI round soft non tender, hypoactive BS in all 4 quadrants; Buenrostro present draining clear, yellow urine. ; sternum w/ aquacel dressing
w/ small old drainage, CT dressing CDI, R groin dressing changed; +2 scrotal edema, with ecchymosis; RIJ Cordis with Noel @ 48, x 2 arterial lines in the R/L radial arteries, L fem Trialysis catheter with a pigtail, PIV x1; Pt on insulin, dobut,
amio, See work list for nursing interventions and titration data.
[2025-03-13] MEDS: KCL 50 IV ×3 (09:30→23:00)
--- NOTE | 2025-03-13 09:30 | PTCARENOTE ---
weaning trial @ 8 am; 944 abg taken; PT placed back on Simv 16/500/5/40%
ASIC DESIGN ENGINEER made aware of scrotal edema & ecchymosis; examined at bedside continue to monitor
[2025-03-13 09:42] LABS: B.E. - POC 3.2 mmol/L; Blood Urea Nitrogen - POC 38 mg/dl (3-120); Chloride - POC 104 mmol/L (96-111); Creatinine - POC 1.99 mg/dl (0.3-1.0); Glucose - POC 95 mg/dl (70-99); HCO3 - POC 30 mmol/L (21-28); Hematocrit - POC 25 % PCV (42-52); Hemodilution- POC No; Hemoglobin Calculated - POC 8.5; Ionized Calcium - POC 1.31 mmol/L (1.15-1.33); Lactate - POC 0.76 mmol/L (0.36-0.75); O2 Saturation %Calculated-POC 90.1 % (94-98); PCO2 - POC 57 mmHg (35-48); PO2 - POC 65 mmHg (83-108); Potassium - POC 3.8 mmol/L (3.5-5.1); Sodium - POC 146 mmol/L (136-145); Specimen Type - POC Arterial; pH - POC 7.33 (7.35-7.45)
[2025-03-13 09:50] LABS: B.E. 1.6 mmol/L; HCO3 27.6 mmol/L (21-28); O2 Saturation % 99.1 % (94-98); PCO2 50 mmHg (35-48); PO2 110 mmHg (83-108)
[2025-03-13 09:51] LABS: O2 Therapy CPAP
[2025-03-13 10:08] LABS: Glucose - Point of Care 110 mg/dl (70-99)
[2025-03-13 10:33] LABS: Blood Urea Nitrogen 46 mg/dl (9-20); Calcium 8.1 mg/dl (8.4-10.2); Carbon Dioxide 28 mmol/L (22-30); Chloride 109 mmol/L (98-107); Estimated Creatinine Clearance 41 ml/min; Glucose 101 mg/dl (70-99); Potassium 4.1 mmol/L (3.5-5.1); Sodium 139 mmol/L (135-145); eGFR 36.33
[2025-03-13 11:55] LABS: B.E. 1.6 mmol/L; HCO3 27.2 mmol/L (21-28); O2 Saturation % 98.9 % (94-98); PCO2 47 mmHg (35-48); PO2 95 mmHg (83-108)
--- NOTE | 2025-03-13 12:00 | PTCARENOTE ---
weaning trail #2 @ 1045 ; 1146 ABG collected; PT placed back on Simv /5/40%
[2025-03-13 12:20] LABS: Glucose - Point of Care 88 mg/dl (70-99)
[2025-03-13] MEDS: SUBLIMAZE 50 MCG IV ×2 (12:44→18:26)
--- NOTE | 2025-03-13 12:52 | W.PN.CD ---
Today's Communication / Plan
-
Possible extubation
wean inotropes
monitor tele and urine output
Impression / Plan
-
Impression/Plan: 74 yo male with PMH of ICM EF 35-40%, chronic HFrEF, persistent A fib on eliquis, HTN, CAD s/p CABG x 4, MV repair, TV repair, MAZE, and EVI exclusion with Dr. Sullivan (02/16/25); admitted on 03/04/2025 with acute on chronic HFrEF,
subsequently found to have severe AR due to Moses type A aortic dissection.
#Aortic dissection
-Acute, [place] type A w/ involvement of b/l Coronary ostia and circumferentially around the root causing severe AI, distally to the Aorto-iliac bifurcation complicated by shock.
-s/p #27 valved conduit and hemiarch replacement, ligation of L and R coronary ostia as they were dissected; bypass grafting to an acute marginal and relocation of previous vein grafts onto acute marginal vein graft.
-The patient was neurologically intact on POD #1 with high pressor/inotrope requirements. The opportunity was taken to place MCS; now s/p Impella 5.5 insertion.
-CRRT started yesterday.
-Loss of Impella pulsatility lead to TTE guided repositioning. Patient was re-opened at the bedside, revealing clot around the right ventricle and SVG that appeared to compress both. The clot was evacuated (05/08/2025).
-Arterial bleeding was observed from the IAN bed, which was clipped and a sternal wire site which was double ligated with good hemostasis (03/08/2025).
-CI dwindled overnight, improved to 2.06. OCCUPATIONAL THERAPY AIDES TEACHER = 0.84 [place]. Delphine = 0.8.
-The patient has had several episodes of hypotension, though to be due to compression of the SVG. The patient was taken to OR for placement of a ringed graft to prevent compression (03/09/2025).
-Patient returned to the OR for ligation of the IAN (persistent bleeding) and re-bypass to address the angulation of the original SVG to Diag, which is thought to be leading to his multiple hypotensive episodes (03/09/2025).
-now s/p chest closure and Impella removal
# Ventilator supported hypoxic RF
- likely extubate today
#HFrEF/ICMO
-Acute on chronic in the setting of Type A dissection with moderate/severe AI.
-Weight up 12 kg from baseline.
-volume managed by lasix gtt and intermittent crrt nephro following
-No role for GDMT at this time.
- bumex gtt per nephro
#Heme
-Anemia (s/p 14 units PRBC's to date).
-Acute, post operative but constellation concerning for hemolysis, possibly indicative of pump thrombosis.
-Transfusions as indicated.
-Thrombocytopenia (s/p 6 units of platelets to date).
-Acute (50-60 <-- 75 <-- 83 <-- 72 <-- 50 <-- 84 <-- 106 <-- 131 <-- 205).
-Clearly consumptive, again concerning for hemolysis/pump thrombosis, consider DIC in the context of rising INR.
-LDH remains 470.
-Coagulopathy (s/p 3 units FFP, 2 units of Cryoprecipitate).
-Acute (hovering around 2).
-Notable in the context of ALI but also concerning for consumptive coagulopathy.
-FFP/Cryo to maintain stable INR. -->likely improving
#CAD
-Chronic, stable.
-S/P CABG x 4 (MAGANA to LAD, SVG to OM1 to LPL, SVG to Diag).
-During operation for Ao dissection, the SVG graft was anastomosed to the SVG to diagonal graft and the LMCA/RCA were ligated to prevent further propagation of the dissection plane.
-The current anatomy is MAGANA to LAD, SVG from Ao graft to SVG to diagnoal, sequential SVG Y-graft from diagonal graft to OM1 to LPL.
-All antiplatelet therapy on hold due to thrombocytopenia/coagulopathy.
#Mitral regurgitation
-Chronic, stable
-S/P MV repair (closure of cleft between P2 and P3, free edge remodeling between P3 and commissure, placement of single Dwarf-Gaston suture from anterolateral papillary muscle head to P2 and P3, #32 Taylor Physio Flex band annuloplasty, SN [id number])
with Dr. Sullivan, 02/16/2025.
#Tricuspid regurgitation
-Chronic, stable.
-S/P TV repair (Simple tricuspid valve repair with #34 Medtronic Triad band annuloplasty, SN [id number]) with Dr. Sullivan, 02/16/2025.
#Atrial fibrillation
-Persistent, currently in NSR vs A flutter
-Rate/rhythm control with amiodarone, s/p MAZE with Dr. Sullivan, 02/16/2025.
-CHADS2-Vasc = 5 (CHF, HTN, Age x2, vascular disease).
-Anti-thrombotic therapy titrated based on coagulopathy, S/P LAAE (#40 AtriClip, SN [id number]) with Dr. Sullivan, 02/16/2025.
#IRON
-Severe, requiring CRRT.
-now on bumex gtt
#ALI
-Severe, multifactorial.
-Component of shock liver, likely a component of hemolysis.
-Avoid hepatotoxic agents.
Critical Care Time = 31 minutes.
Subjective/Interval History:
Converted to NSR vs a flutter
weaning ventilator possible extubation today
DATA:
TTE, 03/04/2025:
SUMMARY
1. Moderately reduced LV systolic function. Ejection fraction is 35-40%. Global hypokinesis.
2. S/p mitral valve repair with peak/mean gradients of 15/5 mmHg. Trace mitral valve regurgitation.
3. Moderate/severe aortic regurgitation. PHT approx 250 msec.
4. S/p tricuspid valve repair with mean gradient of 2 mmHg. Mild tricuspid regurgitation. Estimated PASP 38 mmHg, assuming RAP 8 mmHg. Mildly elevated PASP.
5. Compared to 02/19/25: LVEF is stable in 35-40% range, mitral valve and tricuspid valve repairs are stable; aortic regurgitation has progressed from mild/moderate to moderate/severe.
SAJAN, 03/07/2025:
SUMMARY
1. There is a Moses type A DeBakey class I aortic dissection present.
2. Trileaflet aortic valve. Severe aortic regurgitation due to prolapse of the left vs non coronary cusp and aortic dissection.
3. Low normal ventricular systolic function. LVEF 45-50%.
4. S/p tricuspid valve repair. Trace residual tricuspid regurgitation.
5. S/p mitral valve repair. Trace residual mitral regurgitation.
6. Dr. Sullivan (CT surgery) notified of findings at time of study.
CT surgery, 03/07/2025:
Procedure(s) Performed:
1. Ultrasound-guided access using Seldinger technique 2 the right common femoral artery and vein with percutaneous access using a 25 Bulgarian femoral venous cannula
2. Redo sternotomy with extensive adhesiolysis (Modifier 22 for additional dissection time of 1 hour)
3. Direct aortic cannulation using ultrasound and Seldinger technique with a SAJAN guidance verifying true lumen access
4. Moderate hypothermic circulatory arrest with antegrade cerebral perfusion
5. Hemiarch ascending aortic replacement
6. Aortic root replacement using a 27 mm valved conduit
7. Ligation of left and right coronary ostia as they were dissected coronary bypass grafting to an acute marginal
8. Relocation of previous vein grafts onto this acute marginal vein graft
9. Placement of temporary atrial ventricular pacing wires
10. Transesophageal echocardiography
11. Temporary chest packing, open chest.
Impella Placement, 03/08/2025:
Procedure(s) Performed:
1. The temporary dressing over top of the open chest was removed
2. Placement of atrial pacing wires
3. Anastomosis of a 10 mm straight tube graft off of the ascending aortic graft, graft to graft anastomosis
4. Graft tunneled to the left supra clavicular region between the strap muscles
5. Placement of a 5.5 direct aortic Impella LVAD
6. Chest closure in usual fashion
TTE, 03/08/2025:
SUMMARY
1. TDS.
2. In limited views, left ventricle appears normal sized with severely reduced systolic function. Left ventricle ejection fraction is 25-30% by visual estimation. Global hypokinesis. S/p Impella 5.5 insertion which appears to be appropriately
placed.
3. In limited views right ventricle appears normal sized with mildly reduced systolic function. Right ventricle does appear to expand in diastole.
4. Limited valvular interrogation.
5. Compared to SAJAN earlier in day, overall, no significant change.
Bedside Rexploration, 03/08/2025:
Procedure: Emergency bedside reopening of chest and the loculation of clot ligation of IAN which was the bleeding source, repacking with 1 vaginal pack and Kerlix and replacement of new chest tubes
CT surgery re-exploration, 03/09/2025 (morning):
PROCEDURES:
1. Mediastinal reexploration/irrigation and removal of packing.
2. Repositioning of proximal course of greater saphenous vein graft
with several 6-0 Prolene sutures (placed/subsequently removed).
3. Placement of 6 mm ringed PTFE graft around proximal segment of
greater saphenous vein graft .
4. Replacement of new mediastinal packing (1 vaginal pack and
partial roll of Kerlix; syringe based sternal separation).
5. Reexploration with replacement of new open chest dressing.
CT surgery re-exploration, 03/09/2025 (afternoon):
Procedure(s) Performed:
1. Reopening of temporary chest coverage.
2. Ligation of IAN.
3. Coronary artery bypass grafting x 1 (Aortic Graft to RSVG to RSVG - T-graft).
4. Open vein harvest of the left thigh.
5. Transesophageal echocardiography.
6. Repacking of chest and placement of temporary dressing.
Physical Exam
Vital Signs/Labs
Vital Signs
Temp Pulse Resp BP Pulse Ox
98 F 85 16 116/68 98
03/13/25 12:00 03/13/25 12:00 03/13/25 10:00 03/13/25 12:00 03/13/25 12:00
03/12/25 03/13/25 03/14/25
06:59 06:59 06:59
Actual Weight 214 lb 11.684 oz 223 lb 15.834 oz
03/13/25 04:21
03/13/25 10:04
PT 17.8 Sec (11.4-14.6) H 03/13/25 04:21
INR 1.44 03/13/25 04:21
APTT 45.8 Sec (23.4-35.0) H 03/11/25 20:02
Magnesium 2.0 mg/dl (1.6-2.3) 03/13/25 04:21
Triglycerides 111 mg/dl (10-149) 03/13/25 04:21
03/04/25
15:44
Gwr-X-Dufyeaodvto Pept 2970
Physical Exam
Constitutional: Other (intuabted)
EENT: Anicteric
Cardiovascular: Rhythm & rate is regular
Respiratory: Other (ventilated but clear sounding)
GI: Soft
Neuro/Psych: Alert
Data Reviewed
-
Date of Service: March 13, 2025
EKG: Tracing Personally Visualized and interpreted (SR vs accelerated jxnal )
Echo: Tracing Personally Visualized and interpreted
Labs: Labs Reviewed by me
[2025-03-13 14:09] LABS: Glucose - Point of Care 96 mg/dl (70-99)
[2025-03-13 14:48] LABS: B.E. 2.0 mmol/L; HCO3 27.7 mmol/L (21-28); O2 Saturation % 99.5 % (94-98); PCO2 48 mmHg (35-48); PO2 91 mmHg (83-108)
--- NOTE | 2025-03-13 15:04 | RESPNOTE ---
Respiratory: patient weaned three times today PSV 8/5 cmH2O last two times at 50%. RR increased to 26 and last wean from 1400 to 1445 Tv averaged about 290. Returned patient back to [facility]. RN and N.P. made aware.
[2025-03-13] MEDS: SUBLIMAZE 100 MCG IV (15:30)
[2025-03-13] MEDS: STERILE WATER FOR INJECTION 10 ML IV (15:35)
[2025-03-13] MEDS: MAXIPIME 2000 MG IV (15:35)
--- NOTE | 2025-03-13 16:00 | PTCARENOTE ---
weaning trail #3 @ 1350 ; 1145 ABG collected; PT placed back on Simv 16/5/40%
[2025-03-13] MEDS: NSS 500 IV (16:03)
[2025-03-13 16:24] LABS: Glucose - Point of Care 63 mg/dl (70-99)
[2025-03-13 16:51] LABS: Glucose - Point of Care 139 mg/dl (70-99)
[2025-03-13 17:59] LABS: Glucose - Point of Care 82 mg/dl (70-99)
[2025-03-13 19:08] LABS: Glucose - Point of Care 67 mg/dl (70-99)
[2025-03-13] MEDS: DEXTROSE 50% SYRINGE 12.5 GRAMS IV (19:15)
[2025-03-13 19:33] LABS: Glucose - Point of Care 136 mg/dl (70-99)
[2025-03-13 20:43] LABS: Glucose - Point of Care 119 mg/dl (70-99)
--- NOTE | 2025-03-13 21:00 | PTCARENOTE ---
Assumed care of pt from jose RN. Report at the bedside. Pt intubated w/ fentanyl drip running. Opens eyes spontaneously. MCKEE. Follows simple commands. B/L hand grasps weak. Pupils +2 and reactive to light. SR on the tele monitor. HR 80s. BP
120-140s/60s. PAPs 40s/teens. CVP ~10. CI 2.63, CO 5.47, SVR 979. B/L UE edema +2. B/L LE edema +3. Scrotal edema present w/ bruising - CT URSZULA aware. ETT #8, 24 cm @ left lip. SIMV. FiO2 down to 40% (@2044) by CT URSZULA at bedside - respiratory aware.
POX 97-98%. See worklist for full vent settings. R/L pleural and Mediastinal x2 CT's to -20 suction, no airleaks noted at this time, and output as documented. B/L lung sounds present and diminished. Abdomen soft. Hypoactive BS. Buenrostro catheter intact
and draining yellow urine. Right IJ cordis w/ swan @48 intact. R/L radial a-lines and R PIV x1 intact. All lines leveled, zeroed, and flushed. Left groin hemodialysis cath intact w/ KVO running. All surgical sites stable at this time. Continuous
lateral rotation on sport bed. Fentanyl drip dc'd @2044 for potential extubation in AM. Per CT URSZULA - okay to turn off drip w/o taper. Glycemic protocol followed. Current drips; amio, dobut, insulin, and bumex. See worklist for full nursing
assessment and interventions.
[2025-03-13] MEDS: NOVOLIN R INSULIN INFUSION 100 IV (21:12)
[2025-03-13 21:37] LABS: Glucose - Point of Care 91 mg/dl (70-99)
[2025-03-13] MEDS: LEVOTHROID 75 MCG IV (21:38)
[2025-03-13 22:17] LABS: B.E. 3.4 mmol/L; HCO3 28.5 mmol/L (21-28); O2 Saturation % 99.0 % (94-98); PCO2 45 mmHg (35-48); PO2 114 mmHg (83-108); Potassium 3.3 mMOL/L (3.5-5.1)
[2025-03-13] MEDS: BUMEX 100 IV (22:21)
[2025-03-13 22:34] LABS: Glucose - Point of Care 94 mg/dl (70-99)
[2025-03-13 22:40] LABS: Blood Urea Nitrogen 49 mg/dl (9-20); Calcium 7.8 mg/dl (8.4-10.2); Carbon Dioxide 28 mmol/L (22-30); Chloride 109 mmol/L (98-107); Estimated Creatinine Clearance 41 ml/min; Glucose 87 mg/dl (70-99); Magnesium 2.0 mg/dl (1.6-2.3); Potassium 3.2 mmol/L (3.5-5.1); Sodium 137 mmol/L (135-145); eGFR 36.33
[2025-03-13 23:32] LABS: Glucose - Point of Care 89 mg/dl (70-99)
[2025-03-14] VITALS (12 sets, daily range): BP systolic 120–156; BP diastolic 71–106; BMI 31.6
--- NOTE | 2025-03-14 00:07 | W.PN.CT ---
Today's Communication / Plan
-
Plan:
-No major issues overnight. Hemodynamically intact
-Failed CPAP trial yesterday. More awake and following commands off sedation overnight, hemodynamically stable with good ABG's/CXR
-Extubated this AM @ 0505, will monitor to see if able to avoid reintubation with Tracheostomy
-Dobutamine @ 3, Bumex gtt @ 1mg/hr, Amiodarone @ 0.5. D/C'd Fentanyl, Propofol, Epinephrine, Levophed and vasopressin
-Impella was weaned and d/c'd at bedside by Dr. Sullivan on 03/12/25
-Last CI 2.95, MVO2 71.4% on Dobut @ 3
-Underwent Bronchoscopy at bedside by Dr. Sullivan on03/12/25, f/u culture. F/U cxr
-Underwent chest washout/closure and bronchoscopy with lavage on 03/11/25
-Remains on empiric Vancomycin and Cefepime
-Monitor chest tube output for possible D/C: 2meds 110/330, R/l Pleurals 330/510
-Monitor h/h 8.4/26.2
-Monitor plts 98K, down from 67K
-Monitor cr 2.0, up from 1.8
-Replete K, 3.7
-Elevate scrotum in light of scrotal edema
-Holding BB while on dobutamine and hypotensive
-Holding PO meds while intubated
-Wean off dobutamine as tolerated
-Will d/c swan and a-line once off dobutamine
-Maintain adams catheter for accurate I/O's while on dobutamine
-Maintain cordis for phlebotomy/medication administration
-Maintain temporary v-wire
-D/C'd right femoral artery groin sheath and right femoral vein puncture site retention suture without incident 03/12/25
-Consider D/C of left groin triple lumen central line
-OOB into chair/Ambulate when able to extubate
-Consider nutritional intake, prealbumin low, 4.7
-Will need PT/OT/SP evaluation
-Eventual resumption of Eliquis for PAF hx
-Eventual rehab placement
Assessment / Plan
-
Assessment:
-S/p Emergent Redo sternotomy with extensive adhesiolysis (Modifier 22 for additional dissection time of 1 hour)/Hemiarch ascending aortic replacement/ Aortic root replacement using a 27 mm valved conduit/Ligation of left and right coronary ostia as
they were dissected coronary bypass grafting to an acute marginal/Relocation of previous vein grafts onto this acute marginal vein graft/Temporary chest packing, open chest, by Dr. Sullivan, 03/07/25, pod#7
-S/p placement of a 5.5 direct aortic Impella LVAD on 03/08/[address] Sullivan
-Cardic tamponade/ Cardiovascular collapse- s/p Emergency bedside reopening of chest and the evacuation of clot; ligation of IAN, which was the bleeding source; repacking with 1 vaginal pack and Kerlix; replacement of new chest tubes by Dr. Sullivan on
03/08/25
S/p�mediastinal�reexploration/irrigation and placement of�6mm�ringed PTFE graft around the greater�saphaenous�graft. ���S/P�Emergent�Ligation of IAN, Coronary artery bypass grafting x 1 (Aortic Graft to RSVG to RSVG - T-graft)�03/09
-S/P Washout with antibiotic solution inspection of all surgical sites and closure with wires and plates, by Dr. Sullivan, 03/11/25
-S/P Endotracheal bronchoscopy with lavage, by Dr. Carpenter, 03/07/25
-S/p Impella was weaned and d/c'd at bedside by Dr. Sullivan 03/12/25
-S/P Bronchoscopy at bedside by Dr. Sullivan 03/12/25
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
-Worsening of aortic valve insufficiency to severe secondary to dissection
-Acute on chronic congestive heart failure with volume overload secondary to new aortic valve insufficiency
-Hypertension
-Hyperlipidemia
-Hypothyroidism
-AFIB on Eliquis
-Ischemic CM
-Recent cardiac surgery over 20 days ago
-Mitral valve insufficiency status post repair
-Tricuspid insufficiency status post repair
-Coronary artery disease status post CABG
-S/P CABG x 4, MV repair, TV repair, MAZE, and EVI exclusion, Dr. Sullivan 02/16/25, Readmitted for SOB on 03/04
-Acute intraop/postop blood loss/Anemia (transfused 14u PRBC's)
-Acute intraop and postop coagulopathy (Administered 10mg Factor VII, 4 of cryo and 11 FFP ); chest packed and kept opened until 03/11/25
-Acute postop thrombocytopenia (transfused 11 {5pks} plts)
-Acute postop Pulmonary insufficiency
-Acute postop VDRF
-Acute postop Metabolic Acidosis, followed by metabolic alkalosis
-Acute postop Lactic acidosis
-IRON
-Cardiac tamponade 03/08/25
-Acute postop cardiogenic shock
-Acute postop scrotal edema
Discussed patient care with: Cardiology, Nursing, Respiratory Therapy, Pharmacy and Care Team
Subjective
-
Date of Service: March 14, 2025
Pt given sedation vacation overnight, fully awake and following commands
Objective Data
-
PT 17.8 Sec (11.4-14.6) H 03/13/25 04:21
INR 1.44 03/13/25 04:21
APTT 45.8 Sec (23.4-35.0) H 03/11/25 20:02
Vital Signs
Vital Signs
Temp Pulse Resp BP Pulse Ox
98.6 F 86 16 126/74 97
03/13/25 23:00 03/13/25 23:00 03/13/25 23:00 03/13/25 22:00 03/13/25 23:00
CT Intake/Output/Weight
03/13/25 03/13/25 03/14/25
06:59 18:59 06:59
Intake Total 1025.8 / 2668.4 728.6 / 1020.9 292.3 / 1020.9
Output Total 1160 / 2570 1535 / 2330 795 / 2330
Balance -134.2 / 98.4 -806.4 / -1309.1 -502.7 / -1309.1
SaO2: 96 (6L )
Physical Exam
-
General: Awake
Cardiovascular: Regular rate & rhythm, No Murmurs, No Rub and No Gallop
Respiratory: Decreased Breath Sounds (at bases, otherwise clear)
Sternum: Stable
Incision: Clean, Dry, Intact and Dressing Intact
Extremities: Edema +2
Data Reviewed
-
Lab Results: Results Reviewed
Medications: Active Meds Reviewed
Chest X-Ray: Report Reviewed and Image Reviewed
ECG: Report Reviewed and Image Reviewed
--- NOTE | 2025-03-14 00:30 | PTCARENOTE ---
Pt reassessed. Pt awake and alert. MCKEE. RASS 0. CPOT 0-2. SR on the tele monitor. HR 80s. Temporary epicardial v-wire intact. No pacer spikes noted. BPs 140-150/60s. PAPs 30s/teens. CVP ~10. CI 2.85, CO 5.93, SVR 1025. ETT #8, 24 cm at the lip. Vent
settings unchanged. POX 98%. CTx4 assessment unchanged. Buenrostro catheter in place and draining yellow urine. All lines leveled, zeroed, and flushed. All surgical sites stable at this time. Potassium replaced - see MAR. Glycemic protocol followed.
Continuos lateral rotation bed in use. Repositioned as needed. Current drips; insulin, dobut, bumex, and amiodarone. Pt denies pain at this time.
[2025-03-14 00:39] LABS: Glucose - Point of Care 78 mg/dl (70-99)
[2025-03-14] MEDS: KCL 50 IV ×3 (01:12→06:11)
[2025-03-14 02:04] LABS: Glucose - Point of Care 102 mg/dl (70-99)
--- NOTE | 2025-03-14 03:11 | PTCARENOTE ---
Left radial a-line reading ~10-15 points higher than right radial a-line. Left radial a-line 150s/60s. Right radial a-line 130-140/60s. Left radial a-line crossed over from monitor to meditech. CT URSZULA aware of BP's.
[2025-03-14 03:51] LABS: Glucose - Point of Care 90 mg/dl (70-99)
--- NOTE | 2025-03-14 04:38 | PTCARENOTE ---
Neuro status unchanged. CPOT 0-2. RASS 0. SR on tele w/ PVC's. HR 80s. BPs 150s/60s. PA aware. CVP ~7. PAPs 30s/teens. CI 2.67, CO 5.55, SVR 1196. ETT unchanged. Pt to CPAP / PSV @0400. Settings as documented. POX 98%. CT x4 assessment unchanged,
output as documented. Buenrostro catheter intact and draining yellow urine. All lines leveled, zeroed, and flushed. All surgical sites stable at this this time. Scrotal edema unchanged. Pt skin weepy around previous left AC IV site. Glycemic protocol
followed. Current drips; bumex, dobut, amio, and insulin. Labs drawn and sent.
[2025-03-14 04:45] LABS: B.E. 1.9 mmol/L; HCO3 26.6 mmol/L (21-28); O2 Saturation % 99.4 % (94-98); PCO2 41 mmHg (35-48); PO2 114 mmHg (83-108); Potassium 3.6 mMOL/L (3.5-5.1)
[2025-03-14] MEDS: SYNTHROID TUBE (05:03)
[2025-03-14 05:05] LABS: INR 1.52; PT 18.5 Sec (11.4-14.6)
--- NOTE | 2025-03-14 05:05 | RESPNOTE ---
Order entered to extubate. Pt extubated to 6L N/C without issue. ASSISTANT BOILER OPERATOR/CVPA/RN/SHOTWELD OPERATOR present. Negative stridor and positive but weak phonation noted. Fair efforts with IS.
[2025-03-14 05:12] LABS: Hematocrit 26.2 % (39.0-52.0); Hemoglobin 8.4 g/dL (13.0-18.0); Mean Corp Hgb Conc. 32.1 g/dL (33.0-37.0); Mean Corpuscular Volume 98.9 fL (80.0-94.0); Platelet Count 98 10^3/uL (130-400); Red Cell Dist. Width 18.2 % (11.5-14.5)
[2025-03-14 05:21] LABS: ALT (SGPT) 27 U/L (0-50); AST (SGOT) 60 U/L (17-59); Albumin 2.3 g/dl (3.5-5.0); Alkaline Phosphatase 217 U/L (38-126); Blood Urea Nitrogen 52 mg/dl (9-20); Calcium 7.9 mg/dl (8.4-10.2); Carbon Dioxide 29 mmol/L (22-30); Chloride 110 mmol/L (98-107); Estimated Creatinine Clearance 39 ml/min; Glucose 96 mg/dl (70-99); Magnesium 2.1 mg/dl (1.6-2.3); Potassium 3.7 mmol/L (3.5-5.1); Sodium 140 mmol/L (135-145); Total Protein 4.6 g/dl (6.3-8.2); eGFR 34.16
[2025-03-14 06:08] LABS: Glucose - Point of Care 96 mg/dl (70-99)
--- NOTE | 2025-03-14 06:13 | PTCARENOTE ---
Pt placed on CPAP @0400. ABG resulted. CT URSZULA, respiratory, and anesthesia at the bedside. Order to extubate. Pt extubated to 6 L NC. POX ~96%. RR 24-30. No stridor. Soft speech. IS ~500. VSS at this time.
--- NOTE | 2025-03-14 07:33 | W.PN.INTV ---
Today's Communication / Plan
Recommendations
Remains on dobutamine, amiodarone
Bumex drip continues, negative fluid status noted
Extubated this morning
Chest percussion, encourage airway clearance
Remains on cefepime, vancomycin
Follow white count
Left groin line per CT surgery. Follow-up
Assessment
-
Assessment: 74-year-old male with a past medical history of multivessel CAD s/p CABG, history of severe MR s/p radical mitral valve repair, severe tricuspid valve insufficiency s/p tricuspid valve repair, chronic HFmrEF, hyperlipidemia,
hypertension, paroxysmal A-fib on Eliquis s/p open left atrial maze + left atrial appendage exclusion, hypothyroidism and history of colon adenoma who presents with shortness of breath, poor appetite and ankle swelling. Patient recently had a
cardiothoracic surgery on 02/16 after proceeding left + right heart catheterization on 02/04/2025 showed triple-vessel CAD with mildly elevated biventricular filling pressures. Patient was found to have acute postoperative blood loss anemia,
postoperative coagulopathy and he improved and was able to be discharged home on 02/22/2025. He is now returning with shortness of breath with exertion, lower extremity edema and imaging consistent with acute decompensated heart failure. IV Lasix
started. Echo performed on 03/04/2025 showed reduced EF now at 35-40%, global hypokinesis, with worsening aortic regurgitation from mild/moderate to moderate/severe.He was also started on metoprolol due to NSVT. Given the worsening aortic
insufficiency, a SAJAN was performed on 03/07/2025 showing a [place] Bean type a DeBakey class I aortic dissection with severe aortic regurgitation due to left versus noncoronary cusp prolapse and aortic dissection. CT surgery notified and a stat CT
angio chest/abdomen/pelvis was performed confirming an aortic dissection extending throughout the aorta beginning at the root and extending to the aortic bifurcation. There also were small bilateral pleural effusions with other postoperative
changes along the sternum with a possible small hematoma. Patient brought to the OR and underwent a redo sternotomy with extensive adhesiolysis, hemiarch ascending aortic replacement, aortic root replacement, ligation of left and right coronary
ostia as they were dissected, and previous vein grafts were relocated onto the acute marginal vein graft, and his chest was left open. Patient transferred to the CVICU postoperatively, and saxophone player services consulted for additional
management/recommendations.
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
(02/16/2025), chronic HFmrEF, hyperlipidemia, hypertension, paroxysmal A-fib s/p open left atrial maze + EVI�exclusion (02/16/2025) on Eliquis, mild aortic valve insufficiency secondary to leaflet prolapse, hypothyroidism, history of colon adenoma
Impression:
#Type A aortic dissection with resultant severe aortic regurgitation s/p redo sternotomy with extensive adhesiolysis, moderate hypothermic circulatory arrest, hemiarch ascending aortic replacement, aortic root replacement, ligation of left and right
coronary ostia as they were dissected followed by relocation of previous vein grafts onto acute marginal vein graft, and chest left open (POD #6)
#Cardiogenic shock now on multiple vasopressors and placement of a 5.5 direct aortic Impella LVAD with subsequent chest closure in usual fashion (POD #5)
#Cardiac tamponade with cardiovascular collapse s/p emergent bedside reopening of chest with ligation of IAN with multiple clot evacuation and repacking with vaginal pack + Kerlix and replacement chest tubes (POD #5)
#Mediastinal reexploration/irrigation and removal packing with repositioning of proximal course of GSV graft with placement of 6 mm ringed PTFE graft around proximal segment of GSV graft with replacement of new mediastinal packing and new open chest
dressing placed (POD#5)
#Kinking of single vein graft s/p ligation of IAN + CABG x 1 with aortic Graft to RSVG to RSVG - T-graft (POD #4)
#Ventilator dependent respiratory failure with acute hypoxia
#IRON with proximal right renal artery narrowing with decreased right kidney perfusion (per CTA chest/abdomen/pelvis from 03/07/2025) s/p CRRT (off CRRT since 03/11/2025)
#Postoperative coagulopathy
#Lactic acidosis � resolved since 03/10/2025
#Acute HFrEF exacerbation (present on admission)
#Shock liver with hyperbilirubinemia � improved
#Chronic anemia (baseline 9.5-11 g/dL)
#Multivessel CAD s/p CABG x 4, severe mitral valve insufficiency s/p radical mitral valve repair, severe tricuspid valve insufficiency (functional) s/p simple tricuspid valve repair (all on 02/16/2025)
#Paroxysmal A-fib s/p open left atrial maze + EVI�exclusion (02/16/2025) on Eliquis
Plan/recommendations:
Remains critically ill, on dobutamine, amiodarone
Patient went back to [facility] on 03/11 for chest closure and bronchoscopy
On 03/12, he went to [facility] for repeat bronchoscopy with Impella removal on 03/12 -respiratory sample sent for cultures (growing GNR � follow up species)
Extubated earlier this morning
98% on high flow oxygen
Patient appears to be comfortable, does follow commands, able to speak short sentences
Moving forward
Continue with airway clearance measures
Chest percussion, encouraged cough
Chest x-ray with mild right pleuroparenchymal atelectasis
Remains on dobutamine, amiodarone, Bumex
Negative fluid status noted
Trend MVO2 as well as CI, with goal >65 and >2, respectively while on dobutamine drip
Continue amio gtt
Left groin triple-lumen in place, consider discontinuing per CT surgery
Cordis in place
Monitor chest tube output
Monitor hemoglobin
Monitor platelet count and coags
Transfuse blood products per CT surgery protocol
Continue insulin drip
Negative fluid status noted
Nephrology following
Remains on Bumex drip
Gram-negative bacilli per endotracheal specimen 03/12, Legionella and streptococcal antigen negative negative
Currently on cefepime, vancomycin
Remains afebrile, white count 15.9
Follow cultures
Consider discontinuing left groin
Aspiration precautions
Head of bed elevated
DVT prophylaxis: Eliquis currently on hold (last dose morning of 03/07/2025)
Early nutrition when able
Early mobilization
Patient is critically ill; continue management in CVICU - Plant Operations Manager service will continue to follow along.
Critical care statement: A total of 35 minutes of critical care time was provided for this patient today. This includes management of ventilator, spontaneous breathing trial, arterial blood gases, pressors, of unstable vital signs, evaluation of the
patient at bedside, reviewing the patient's pertinent medical records including radiographs, microbiology, laboratory evaluations, and discussion with primary team and critical care nursing.
Data:
CTA chest/abdomen/pelvis with/without contrast 03/07/2025:
1.There is an aortic dissection extending throughout the aorta beginning at the root and extending to the aortic bifurcation consistent with Tom Bean type A dissection.The aortic branch arteries appear to be supplied off the true lumen. There is
associated moderate narrowing of the descending thoracic aorta and proximal abdominal aorta. Additionally there is narrowing at the proximal right renal artery with associated asymmetrically decreased perfusion of the right kidney.
2. Small bilateral pleural effusions with adjacent atelectasis.
3. Postoperative changes along the sternum with a possible small hematoma.
CXR 03/09/2025:
Stable position of the endotracheal tube, [place]-Fabio catheter, Impella device, and bilateral chest tubes.
A sternal retractor again projects over the chest.
No focal consolidation, pleural effusion, or pneumothorax. Sternotomy wires and cardiac valve prostheses. Stable cardiomediastinal silhouette. Chronic degenerative changes of the spine.
Subjective Dataa
Subjective Data
Date of Service:
Date of Service: March 14, 2025
Chief Complaint: Plant Operations Manager Follow Up
Subjective:
Patient remains critically ill on dobutamine, amiodarone. Extubated earlier today at around 5 AM. Required significant airway clearance measures, bronchoscopy for secretions over the weekend. Presently appears to be comfortable. He does follow
commands
Objective Data
Data Reviewed
Vital Signs / I&O / Oxygen:
Vital Signs
Temp Pulse Resp BP Pulse Ox
98.4 F 88 27 132/85 95
03/14/25 07:00 03/14/25 07:10 03/14/25 07:10 03/14/25 06:00 03/14/25 07:10
Intake and Output
03/13/25 03/14/25 03/15/25
06:59 06:59 06:59
Intake Total 2434.6 / 2668.4 1535.8 / 1640.9 105.1 / 105.1
Output Total 2475 / 2570 3425 / 3650 225 / 225
Balance -40.4 / 98.4 -1889.2 / -2009.1 -119.9 / -119.9
SaO2 [CPAP/PSV] 97
SaO2 [A/C] 95
SaO2 [SIMV] 98
SaO2 95
Nasal Cannula flow liters per 6
minute
Physical Exam
General: Comfortable (Follows commands, generally weak) and Other (Extubated)
HEENT: Normocephalic
Cardiovascular: S1-S2, Regular Rhythm, Murmur (n), Rub (n) and Peripheral Edema (1+)
Respiratory: Wheeze (n), Crackles (n), Rhonchi (n), Non-Labored Respirations, Stridor (n), Chest Tube (Bilateral pleural chest tubes + mediastinal chest tubes x 2), Other (Anterior chest dressing) and Other (Slight decreased at base)
GI: Soft, Non Distended and Non Tender
Neurology: Awake, Alert and Other (Following commands, moving extremities)
Skin: Warm, Dry, Cyanosis (n) and Jaundice (n)
Labs/Micro/Reports
Lab Data
03/14/25 04:33
03/14/25 04:33
Laboratory Results
03/13/25 03/13/25 03/13/25
09:47 11:42 14:35
PT
INR
pH 7.35 7.37 7.37
pCO2 50 H 47 48
pO2 110 H 95 91
HCO3 27.6 27.2 27.7
O2 Delivery Level Cpap
03/13/25 03/14/25
22:08 04:33
PT 18.5 H
INR 1.52
pH 7.41 7.42
pCO2 45 41
pO2 114 H 114 H
HCO3 28.5 H 26.6
O2 Delivery Level
Microbiology
03/12/25 11:30 Endotracheal Respiratory Culture - Preliminary
Gram negative bacilli
03/12/25 11:30 Endotracheal Gram Stain - Preliminary
03/12/25 11:30 Urine Legionella Urinary Antigen - Final
Negative for Legionella pneumophila Serogroup 1 antigen.
A negative result does not rule out the possiblity of
Legionella infection due to other serogroups or species of
Legionella. Clinical correlation is recommended.
03/12/25 11:30 Urine Streptococcus pneumoniae Antigen (M - Final
Negative for Streptococcus pneumoniae antigen.
A negative result does not exclude infection with
Streptococcus pneumoniae. Clinical correlation is
recommended.
03/11/25 15:48 Nose Nasal Screen MRSA (PCR) - Final
MRSA not detected - performed by PCR methodology.
[2025-03-14 07:59] LABS: Glucose - Point of Care 83 mg/dl (70-99)
--- NOTE | 2025-03-14 08:00 | PTCARENOTE ---
Patient received from security shift supervisor resting in bed, sleepy but arousable, oriented to person, states he is in [facility] - reoriented. States correct , able to weakly MCKEE. NSR via cm, oxygen saturation declining on 6lnc, transitioned to hi
flow oxygen. RIJ Cordis/[place]-Fabio catheter, L and R radial arterial lines present- leveled, flushed, and calibrated w/good waveforms returned. L fem HD catheter present w/KVO via pigtail. Epicardial A+V wires to pulse generator set to backup rate
VVI 30, no spikes noted. Mediastinal chest tubes x 2, Y-connected to one pleurevac; L and R pleural chest tubes to separate collection chamber - both to -20cm suction w/no air leaks noted. Buenrostro catheter to gravity. All procedural sites stable.
Sport bed in use w/cont lateral rotation - pt repositioned q2h. Percussion therapy initiated. See work list for full assessment, interventions performed, and intravenous infusions and titrations.
[2025-03-14] MEDS: MIRALAX TUBE (08:43)
--- NOTE | 2025-03-14 08:52 | W.PN.CD ---
Today's Communication / Plan
-
continue Db gtt to support diuresis
continue bumex gtt
continue amio
Impression / Plan
-
Impression/Plan: 74 yo male with PMH of ICM EF 35-40%, chronic HFrEF, persistent A fib on eliquis, HTN, CAD s/p CABG x 4, MV repair, TV repair, MAZE, and EVI exclusion with Dr. Sullivan (02/16/25); admitted on 03/04/2025 with acute on chronic HFrEF,
subsequently found to have severe AR due to Moses type A aortic dissection.
#Aortic dissection
-Acute, Moses type A w/ involvement of b/l Coronary ostia and circumferentially around the root causing severe AI, distally to the Aorto-iliac bifurcation complicated by shock.
-s/p #27 valved conduit and hemiarch replacement, ligation of L and R coronary ostia as they were dissected; bypass grafting to an acute marginal and relocation of previous vein grafts onto acute marginal vein graft.
-The patient was neurologically intact on POD #1 with high pressor/inotrope requirements. The opportunity was taken to place MCS; now s/p Impella 5.5 insertion.
-CRRT started yesterday.
-Loss of Impella pulsatility lead to TTE guided repositioning. Patient was re-opened at the bedside, revealing clot around the right ventricle and SVG that appeared to compress both. The clot was evacuated (05/08/2025).
-Arterial bleeding was observed from the IAN bed, which was clipped and a sternal wire site which was double ligated with good hemostasis (03/08/2025).
-CI dwindled overnight, improved to 2.06. HIM ANALYST = 0.84 Wilkes. Delphine = 0.8.
-The patient has had several episodes of hypotension, though to be due to compression of the SVG. The patient was taken to OR for placement of a ringed graft to prevent compression (03/09/2025).
-Patient returned to the OR for ligation of the IAN (persistent bleeding) and re-bypass to address the angulation of the original SVG to Diag, which is thought to be leading to his multiple hypotensive episodes (03/09/2025).
-now s/p chest closure and Impella removal
# Ventilator supported hypoxic RF
- successully extubated 03/14/25
#HFrEF/ICMO
-Acute on chronic in the setting of Type A dissection with moderate/severe AI.
-Weight up 26 lbs now
-now on bumex gtt, with ionotropic support
-nephrology following
-on Db at 1
-No role for GDMT at this time.
#Heme
-Anemia (s/p 14 units PRBC's to date).
-Acute, post operative but constellation concerning for hemolysis, possibly indicative of pump thrombosis.
-Transfusions as indicated.
-Thrombocytopenia (s/p 6 units of platelets to date).
-Acute but up to 98 today
-Coagulopathy (s/p 3 units FFP, 2 units of Cryoprecipitate).
-Acute but improve
-Notable in the context of ALI but also concerning for consumptive coagulopathy.
-FFP/Cryo to maintain stable INR
#CAD
-Chronic, stable.
-S/P CABG x 4 (MAGANA to LAD, SVG to OM1 to LPL, SVG to Diag).
-During operation for Ao dissection, the SVG graft was anastomosed to the SVG to diagonal graft and the LMCA/RCA were ligated to prevent further propagation of the dissection plane.
-The current anatomy is MAGANA to LAD, SVG from Ao graft to SVG to diagnoal, sequential SVG Y-graft from diagonal graft to OM1 to LPL.
-All antiplatelet therapy on hold due to thrombocytopenia/coagulopathy.
#Mitral regurgitation
-Chronic, stable
-S/P MV repair (closure of cleft between P2 and P3, free edge remodeling between P3 and commissure, placement of single [place]-G[place] suture from anterolateral papillary muscle head to P2 and P3, #32 Taylor Physio Flex band annuloplasty, SN [id number])
with Dr. Sullivan, 02/16/2025.
#Tricuspid regurgitation
-Chronic, stable.
-S/P TV repair (Simple tricuspid valve repair with #34 Medtronic Triad band annuloplasty, SN [id number]) with Dr. Sullivan, 02/16/2025.
#Atrial fibrillation
-Persistent, currently in NSR
-Rate/rhythm control with amiodarone, s/p MAZE with Dr. Sullivan, 02/16/2025.
-CHADS2-Vasc = 5 (CHF, HTN, Age x2, vascular disease).
-Anti-thrombotic therapy titrated based on coagulopathy, S/P LAAE (#40 AtriClip, SN [id number]) with Dr. Sullivan, 02/16/2025.
#IRON
-Severe, requiring CRRT.
-now on bumex gtt
#ALI
-Severe, multifactorial.
-Component of shock liver, likely a component of hemolysis.
-Avoid hepatotoxic agents.
Critical Care Time = 31 minutes.
Subjective/Interval History:
extubated, doing well
DATA:
TTE, 03/04/2025:
SUMMARY
1. Moderately reduced LV systolic function. Ejection fraction is 35-40%. Global hypokinesis.
2. S/p mitral valve repair with peak/mean gradients of 15/5 mmHg. Trace mitral valve regurgitation.
3. Moderate/severe aortic regurgitation. PHT approx 250 msec.
4. S/p tricuspid valve repair with mean gradient of 2 mmHg. Mild tricuspid regurgitation. Estimated PASP 38 mmHg, assuming RAP 8 mmHg. Mildly elevated PASP.
5. Compared to 02/19/25: LVEF is stable in 35-40% range, mitral valve and tricuspid valve repairs are stable; aortic regurgitation has progressed from mild/moderate to moderate/severe.
SAJAN, 03/07/2025:
SUMMARY
1. There is a Moses type A DeBakey class I aortic dissection present.
2. Trileaflet aortic valve. Severe aortic regurgitation due to prolapse of the left vs non coronary cusp and aortic dissection.
3. Low normal ventricular systolic function. LVEF 45-50%.
4. S/p tricuspid valve repair. Trace residual tricuspid regurgitation.
5. S/p mitral valve repair. Trace residual mitral regurgitation.
6. Dr. Sullivan (CT surgery) notified of findings at time of study.
CT surgery, 03/07/2025:
Procedure(s) Performed:
1. Ultrasound-guided access using Seldinger technique 2 the right common femoral artery and vein with percutaneous access using a 25 Frisian femoral venous cannula
2. Redo sternotomy with extensive adhesiolysis (Modifier 22 for additional dissection time of 1 hour)
3. Direct aortic cannulation using ultrasound and Seldinger technique with a SAJAN guidance verifying true lumen access
4. Moderate hypothermic circulatory arrest with antegrade cerebral perfusion
5. Hemiarch ascending aortic replacement
6. Aortic root replacement using a 27 mm valved conduit
7. Ligation of left and right coronary ostia as they were dissected coronary bypass grafting to an acute marginal
8. Relocation of previous vein grafts onto this acute marginal vein graft
9. Placement of temporary atrial ventricular pacing wires
10. Transesophageal echocardiography
11. Temporary chest packing, open chest.
Impella Placement, 03/08/2025:
Procedure(s) Performed:
1. The temporary dressing over top of the open chest was removed
2. Placement of atrial pacing wires
3. Anastomosis of a 10 mm straight tube graft off of the ascending aortic graft, graft to graft anastomosis
4. Graft tunneled to the left supra clavicular region between the strap muscles
5. Placement of a 5.5 direct aortic Impella LVAD
6. Chest closure in usual fashion
TTE, 03/08/2025:
SUMMARY
1. TDS.
2. In limited views, left ventricle appears normal sized with severely reduced systolic function. Left ventricle ejection fraction is 25-30% by visual estimation. Global hypokinesis. S/p Impella 5.5 insertion which appears to be appropriately
placed.
3. In limited views right ventricle appears normal sized with mildly reduced systolic function. Right ventricle does appear to expand in diastole.
4. Limited valvular interrogation.
5. Compared to SAJAN earlier in day, overall, no significant change.
Bedside Rexploration, 03/08/2025:
Procedure: Emergency bedside reopening of chest and the loculation of clot ligation of IAN which was the bleeding source, repacking with 1 vaginal pack and Kerlix and replacement of new chest tubes
CT surgery re-exploration, 03/09/2025 (morning):
PROCEDURES:
1. Mediastinal reexploration/irrigation and removal of packing.
2. Repositioning of proximal course of greater saphenous vein graft
with several 6-0 Prolene sutures (placed/subsequently removed).
3. Placement of 6 mm ringed PTFE graft around proximal segment of
greater saphenous vein graft .
4. Replacement of new mediastinal packing (1 vaginal pack and
partial roll of Kerlix; syringe based sternal separation).
5. Reexploration with replacement of new open chest dressing.
CT surgery re-exploration, 03/09/2025 (afternoon):
Procedure(s) Performed:
1. Reopening of temporary chest coverage.
2. Ligation of IAN.
3. Coronary artery bypass grafting x 1 (Aortic Graft to RSVG to RSVG - T-graft).
4. Open vein harvest of the left thigh.
5. Transesophageal echocardiography.
6. Repacking of chest and placement of temporary dressing.
Physical Exam
Vital Signs/Labs
Vital Signs
Temp Pulse Resp BP Pulse Ox
98.2 F 88 24 130/80 97
03/14/25 08:00 03/14/25 08:00 03/14/25 08:00 03/14/25 08:00 03/14/25 08:00
03/13/25 03/14/25 03/15/25
06:59 06:59 06:59
Actual Weight 223 lb 15.834 oz 226 lb 10.163 oz
03/14/25 04:33
03/14/25 04:33
PT 18.5 Sec (11.4-14.6) H 03/14/25 04:33
INR 1.52 03/14/25 04:33
APTT 45.8 Sec (23.4-35.0) H 03/11/25 20:02
Magnesium 2.1 mg/dl (1.6-2.3) 03/14/25 04:33
Triglycerides 111 mg/dl (10-149) 03/13/25 04:21
03/04/25
15:44
Ijo-R-Pnycugqfqeo Pept 2970
Physical Exam
Constitutional: No acute distress
Cardiovascular: Rhythm & rate is regular, Systolic murmur absent, Diastolic murmur absent and Pedal edema present
Respiratory: Respiratory effort normal and Rhonchi Present (diffusely)
Neuro/Psych: AO x 3
Data Reviewed
-
Date of Service: March 14, 2025
Medical Decision Making: Review of Case with other Provider (Dr Sullivan successfully extubated, plan for diuresis. D/w CVICU nursing Gladys, continue diuresis)
EKG: Other (tele sinus)
[2025-03-14] MEDS: NSS (PRESERVATIVE FREE) 10 ML IV (08:57)
[2025-03-14] MEDS: PROTONIX IV 40 MG IV (08:57)
[2025-03-14 09:01] LABS: B.E. 2.2 mmol/L; HCO3 27.3 mmol/L (21-28); O2 Saturation % 99.5 % (94-98); PCO2 44 mmHg (35-48); PO2 139 mmHg (83-108)
--- NOTE | 2025-03-14 09:30 | PTCARENOTE ---
Dr. Sullivan to bedside, updated to status. Intravenous infusions adjusted per physician discretion.
[2025-03-14 10:07] LABS: Glucose - Point of Care 97 mg/dl (70-99)
[2025-03-14] MEDS: CORDARONE 259 MG IV ×2 (10:12→23:14)
--- NOTE | 2025-03-14 10:33 | WOUNDNOTE ---
[facility] RN note: Patient admitted with SOB, s/p 03/08 sternal washout, 03/09 am and pm sternal washout, 03/11/25 sternal closure. Patient extubated.
See H&P for complete history.
PMH: CABG 03/07/24, a fib (Rupalronandrzej), CM, mitral valve repair.
Wound Location and type/assessment: Patient developed a stage 1 linear red ecchymotic area on L sacral/coccyx. Purple ecchymotic area L thoracic chest, bruise vs DTI. Linear faint purple area L heel stage 1 pressure injury. Calves with linear
purple bruises from low platelets along with knee high SCD's. Distal R calf incision slightly open with yellow fibrin, scant serous drainage. Broken blisters on L posterior lateral chest.
Appetite: NPO. Patient extubated today.
Pressure redistribution devices in place: [employer] Sport bed. Pillows to off load heels. Air chair cushion.
Plan: Protective foam changed on heels. Sacral shaped silicone border foam applied to R thoracic chest purple area. Silicone border foam applied to broken blisters L posterior lateral chest. Patient turned to R semi side lying position with help
from SEBASTIAN Graham and PCT/senior account clerkclerk Jose. Heels off bed with pillow. t/c SPD and ordered a bariatric air chair cushion to place under heel and foot board section of bed. Discussed with SEBASTIAN Graham.
Updated skin findings with CT DATA REDUCTION TECHNICIAN Amanda Brooks who approved local skin/wound care.
Care plan to be updated and will follow as needed.
Note to case management of equipment requested for discharge: Air mattress.
Recommend follow up at wound care center upon discharge.
--- NOTE | 2025-03-14 10:45 | WOUNDNOTE ---
[facility] RN note: Patient admitted with SOB, s/p 03/08 sternal washout, 03/09 am and pm sternal washout, 03/11/25 sternal closure. Patient extubated today.
See H&P for complete history.
PMH: CABG 03/07/24, a fib (Rupalronandrzej), CM, mitral valve repair.
Wound Location and type/assessment: Patient developed a stage 1 linear red ecchymotic area on R sacral/buttocks. Purple ecchymotic area R lower posterior thoracic chest, DTI vs bruise. Linear faint red/purple area R heel stage 1 pressure injury.
Calves with linear purple bruises from low platelets along with knee high SCD's. Distal R calf incision slightly open with yellow fibrin, scant serous drainage. Broken blisters on L posterior lateral chest.
Appetite: NPO. Patient extubated today.
Pressure redistribution devices in place: [employer] Sport bed. Pillows to off load heels. Air chair cushion.
Plan: Protective foam changed on heels. Sacral shaped silicone border foam applied to R thoracic chest purple area. Silicone border foam applied to broken blisters L posterior lateral chest. Patient turned to R semi side lying position with help
from SEBASTIAN Graham and PCT/revenue stamp clerkclerk Jose. Heels off bed with pillow and bariatric air chair cushion. Discussed with SEBASTIAN Graham.
Updated skin findings with CT MOTHERCRAFT NURSE Amanda Brooks who approved local skin/wound care.
Care plan to be updated and will follow as needed.
Note to case management of equipment requested for discharge: Air mattress.
Recommend follow up at wound care center upon discharge.
[2025-03-14] MEDS: MAXIPIME 1000 MG IV ×2 (10:52→18:44)
[2025-03-14] MEDS: STERILE WATER FOR INJECTION 10 ML IV ×3 (10:52→18:47)
--- NOTE | 2025-03-14 11:00 | WOUNDNOTE ---
BACK (R lower thoracic)
[2025-03-14] MEDS: VENTOLIN NEBULES 2.5 MG INH ×4 (11:01→23:09)
[2025-03-14 12:02] LABS: Glucose - Point of Care 125 mg/dl (70-99)
[2025-03-14] MEDS: LOPRESSOR 2.5 MG IV ×2 (13:33→18:46)
[2025-03-14] MEDS: NOVOLIN R INSULIN INFUSION 100 IV (13:49)
[2025-03-14 14:03] LABS: Glucose - Point of Care 88 mg/dl (70-99)
[2025-03-14 14:15] LABS: B.E. 2.4 mmol/L; HCO3 27.3 mmol/L (21-28); O2 Saturation % 98.4 % (94-98); PCO2 43 mmHg (35-48); PO2 100 mmHg (83-108)
[2025-03-14] MEDS: ASPIRIN 300 MG RECTAL (14:24)
--- NOTE | 2025-03-14 14:30 | PTCARENOTE ---
Recieved bedside report at 1400. Patient awake oriented to person answered name and correctly; stated we are in [place] & the year was 1979; moves all 4 extremities and follows commands appropriately, NSR on monitor w/ AV wires +3 generalized
pitting edema in all 4 extremities,doppler all preipheral pulses. High flow NC O2 sat 98%, lung sounds rhonchi R & L ; CTx4 to -20 cm wall suction; GI round soft non tender, hypoactive BS in all 4 quadrants; Buenrostro present draining clear, yellow
urine. ; sternum w/ aquacel dressing w/ small old drainage, CT dressing CDI, R groin dressing changed; +3 scrotal edema, with ecchymosis; RIJ Cordis with Noel @ 48, x 2 arterial lines in the R/L radial arteries, L fem Trialysis catheter with a
pigtail, PIV x1; Pt on insulin, Bumex, amio, See work list for nursing interventions and titration data.
--- NOTE | 2025-03-14 14:55 | W.PN.NEPH.PH ---
Today's Communication / Plan
-
bumex gtt
Assessment/Plan
-
Impression:
Acute type A Aortic dissection with involvement of bilateral coronary ostia and circumferentially around the root with operative repair on 03/08/25
Acute kidney injury
Postoperative cardiogenic shock now on inotropic support
History of CABG x 4 mitral valve repair tricuspid valve repair maze and EVI exclusion on 02/16/2025
Status post Impella placement on 03/08/2025
Lactic acidosis 12.4
Vent dependent respiratory failure
NSVT
Ischemic cardiomyopathy with EF of 45 to 50%
Atrial fibrillation
History of hypertension
Plan:
dobutamine per CT team
for continued diuresis with escalating bumex gtt
follow BMP
no emergent HD needs, still with femoral HD CVC
critical care time 31 minutes
-
-
Date of Service: March 14, 2025
CC / HPI / ROS
-
Chief Complaint:
aortic dissection
IRON
History of Present Illness:
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
BP up off pressors
Creatinine up to 2.0, CRRT was discontinued on a.m. of 03/11/2025
hgb stable 8.4
diuresing well with bumex gtt
critically ill in CVICU
Review of Systems:
non oliguric
no CP
Chest tubes
Labs
-
Labs:
WBC 15.9 10^3/uL (4.8-10.8) H 03/14/25 04:33
RBC 2.65 10^6/uL (4.70-6.10) L 03/14/25 04:33
Hgb 8.4 g/dL (13.0-18.0) L 03/14/25 04:33
Hct 26.2 % (39.0-52.0) L 03/14/25 04:33
Plt Count 98 10^3/uL (130-400) L D 03/14/25 04:33
Sodium 140 mmol/L (135-145) 03/14/25 04:33
Potassium 3.7 mmol/L (3.5-5.1) 03/14/25 04:33
Chloride 110 mmol/L (98-107) H 03/14/25 04:33
Carbon Dioxide 29 mmol/L (22-30) 03/14/25 04:33
BUN 52 mg/dl (9-20) H 03/14/25 04:33
Creatinine 2.0 mg/dL (0.7-1.3) H 03/14/25 04:33
eGFR 34.16 03/14/25 04:33
Glucose 96 mg/dl (70-99) 03/14/25 04:33
Calcium 7.9 mg/dl (8.4-10.2) L 03/14/25 04:33
Phosphorus Cancelled 03/12/25 20:00
Gvp-M-Ixhbnlrjelp Pept 2970 pg/ml 03/04/25 15:44
Albumin 2.3 g/dl (3.5-5.0) L 03/14/25 04:33
Physical Exam
-
Vital Signs:
Vital Signs
Temp Pulse Resp BP Pulse Ox
98.6 F 85 28 141/87 95
03/14/25 14:00 03/14/25 14:00 03/14/25 14:00 03/14/25 14:00 03/14/25 14:00
Cardiovascular:: Regular rate and rhythm
Lung Excursion:: Normal
Abdomen:: Nontender and Soft
Bowel Sounds:: Decreased
Extremity Edema:: +3: Bilateral:
[2025-03-14 16:16] LABS: Glucose - Point of Care 94 mg/dl (70-99)
[2025-03-14] MEDS: BUMEX 100 IV (16:48)
[2025-03-14] MEDS: LEVOTHROID 112.5 MCG IV (18:45)
[2025-03-14] MEDS: NSS 500 IV (18:47)
[2025-03-14 19:07] LABS: Glucose - Point of Care 102 mg/dl (70-99)
[2025-03-14 20:04] LABS: Glucose - Point of Care 88 mg/dl (70-99)
--- NOTE | 2025-03-14 21:04 | PTCARENOTE ---
Assumed care of pt from dayshift RN. Report at the bedside. Pt resting in bed at this time. Pt oriented to person (name/birthday). Pt confused to time and place. Unable to state where they are and stated the year was 1969. Pt alert and calm. Denies
pain at this time. MCKEE. B/L hand grasp weak. Follows simple commands. Intermittent confused conversation. SR on the tele monitor. HR 80s. Temporary epicardial A/V wires set to VVI w/ a backup rate of 30. BP 130-160s/60s. PAPs 30-40s/teens. CVP
~6-10. CI 2.3, CO 4.79, SVR 1769. B/L LE +3 edema and B/L UE +2 edema. +3 scrotal edema present w/ bruising. Scrotum is soft and tender to touch. Pt on high flow NC w/ 35 L, 35-40%. POX 94-95%. Lung sounds diminished throughout. Pt requires
suctioning. Moist cough. Mediastinal CTx2 to -20 suction, no airleaks noted, and output as documented. R/L pleural CT to -20 suction, no airleaks noted, and output serous. Abdomen soft. Buenrostro catheter intact and draining yellow urine. Hypoactive BS.
All surgical/ other wound sites stable and as documented in worklist. Right IJ cordis w/ swan, B/L radial a-lines, and R PIV x1 intact. All lines leveled/zeroed/flushed. Left groin hemodialysis cath intact w/ KVO infusing. Continuous lateral
rotation and chest PT via sport bed. Current drips; bumex, amio, and insulin. Glycemic protocol followed. Pt repositioned as needed. See worklist for full nursing assessment and interventions.
[2025-03-14 22:08] LABS: Glucose - Point of Care 95 mg/dl (70-99)
[2025-03-15] VITALS (16 sets, daily range): BP systolic 118–142; BP diastolic 69–111; BMI 30.1
[2025-03-15] MEDS: LOPRESSOR 2.5 MG IV ×2 (00:29→05:08)
[2025-03-15 00:40] LABS: Glucose - Point of Care 91 mg/dl (70-99)
--- NOTE | 2025-03-15 00:45 | PTCARENOTE ---
Pt reassessed. No acute changes in assessment. Neuro assessment unchanged. Pt arms/hands weak. SR on tele. HR 80s. BP 140-160s/60s-70s. PAPs 40s/teens. CVP ~10. CI 2.50, CO 5.19, SVR 1310. Pt maintained on high flow w/ 35L and 40%. POX 91-95%. CTx4
assessment unchanged, and output as documented. Buenrostro catheter intact and draining yellow urine. All lines leveled, zeroed, and flushed. Surgical sites stable. Repositioned as documented. Suctioned as needed. Current drips; bumex, amio, and insulin.
Glycemic protocol followed.
[2025-03-15 02:36] LABS: Glucose - Point of Care 102 mg/dl (70-99)
[2025-03-15] MEDS: STERILE WATER FOR INJECTION 10 ML IV ×3 (02:47→18:23)
[2025-03-15] MEDS: MAXIPIME 1000 MG IV ×3 (02:47→18:23)
[2025-03-15] MEDS: VENTOLIN NEBULES 2.5 MG INH ×6 (03:49→23:52)
[2025-03-15 03:53] LABS: Hematocrit 28.1 % (39.0-52.0); Hemoglobin 9.1 g/dL (13.0-18.0); Mean Corp Hgb Conc. 32.4 g/dL (33.0-37.0); Mean Corpuscular Volume 94.0 fL (80.0-94.0); Platelet Count 171 10^3/uL (130-400); Red Cell Dist. Width 18.5 % (11.5-14.5)
[2025-03-15 04:03] LABS: ALT (SGPT) 26 U/L (0-50); AST (SGOT) 54 U/L (17-59); Albumin 2.5 g/dl (3.5-5.0); Alkaline Phosphatase 240 U/L (38-126); Blood Urea Nitrogen 62 mg/dl (9-20); Calcium 8.2 mg/dl (8.4-10.2); Carbon Dioxide 28 mmol/L (22-30); Chloride 110 mmol/L (98-107); Estimated Creatinine Clearance 39 ml/min; Glucose 101 mg/dl (70-99); Magnesium 2.2 mg/dl (1.6-2.3); Potassium 3.2 mmol/L (3.5-5.1); Sodium 141 mmol/L (135-145); Total Protein 5.0 g/dl (6.3-8.2); eGFR 34.16
[2025-03-15 04:29] LABS: Glucose - Point of Care 92 mg/dl (70-99)
--- NOTE | 2025-03-15 04:50 | PTCARENOTE ---
Pt reassessed. Neuro assessment unchanged. Pt oriented to person and disoriented to time/place. Pt alert and calm. Compliant. SR on tele. HR 80s. EKG completed. BPs 140s-160s/60-70s. CI 2.46, CO 5.11, SVR 1393. Pt on high flow NC, 35L and 40%. POX
95%. CTx4 assessment unchanged. Output as documented. Meds and pleurals both draining a lot. Buenrostro catheter intact and draining yellow urine. All lines leveled, zeroed, and flushed. Right groin /left arm dressings changed. Right IJ cordis w/ swan
dressing changed. Left neck impella dressing changed. All surgical sites stable. Pt turned as documented. Glycemic protocol followed. Current drips; bumex, insulin, and amiodarone. Labs sent.
--- NOTE | 2025-03-15 05:11 | W.PN.CT ---
Today's Communication / Plan
-
Plan:
-No major issues overnight. Hemodynamically intact. Alert and oriented x 3, moving all extremities appropriately
-Extubated on 03/14/25 @ 0505, currently doing well on high flow O2, 30L/40% fio2
-Wean O2 as tolerated
-Weaned off Dobutamine yesterday 03/14. Currently on Bumex gtt @ 0.5 mg/hr and Amiodarone gtt @ 0.5. D/C'd Fentanyl, Propofol, Epinephrine, Levophed and vasopressin
-Impella was weaned and d/c'd at bedside by Dr. Sullivan on 03/12/25
-Last CI 2.46, MVO2 pending
-Underwent Bronchoscopy at bedside by Dr. Sullivan on03/12/25, f/u culture. F/U cxr
-Underwent chest washout/closure and bronchoscopy with lavage on 03/11/25
-Remains on empiric Cefepime; Vancomycin has been d/c'd
-Monitor chest tube output: 2meds 350/940, R/l Pleurals 430/1075
-Monitor h/h 9.1/28.1
-Monitor plts 98K -> 171K
-Monitor cr 2.0
-Replete K, 3.2
-Elevate scrotum in light of scrotal edema
-Tolerating resumption of BB, currently on IV, may need Dobhoff/OG tube to help transition to PO long acting BB given HFrEF
-Holding PO meds while intubated
-Will d/c swan and a-line once off dobutamine
-Maintain adams catheter for accurate I/O's while on dobutamine
-Maintain cordis for phlebotomy/medication administration
-Maintain temporary v-wire
-D/C'd right femoral artery groin sheath and right femoral vein puncture site retention suture without incident 03/12/25
-Consider D/C of left groin triple lumen central line
-OOB into chair/Ambulate when able to extubate
-Consider nutritional intake, prealbumin low, 4.7
-Will need PT/OT/SP evaluation
-Eventual resumption of Eliquis for PAF hx
-Eventual rehab placement
Assessment / Plan
-
Assessment:
-S/p Emergent Redo sternotomy with extensive adhesiolysis (Modifier 22 for additional dissection time of 1 hour)/Hemiarch ascending aortic replacement/ Aortic root replacement using a 27 mm valved conduit/Ligation of left and right coronary ostia as
they were dissected coronary bypass grafting to an acute marginal/Relocation of previous vein grafts onto this acute marginal vein graft/Temporary chest packing, open chest, by Dr. Sullivan, 03/07/25, pod#8
-S/p placement of a 5.5 direct aortic Impella LVAD on 03/08/[address] Sullivan
-Cardic tamponade/ Cardiovascular collapse- s/p Emergency bedside reopening of chest and the evacuation of clot; ligation of IAN, which was the bleeding source; repacking with 1 vaginal pack and Kerlix; replacement of new chest tubes by Dr. Sullivan on
03/08/25
S/p�mediastinal�reexploration/irrigation and placement of�6mm�ringed PTFE graft around the greater�saphaenous�graft. ���S/P�Emergent�Ligation of IAN, Coronary artery bypass grafting x 1 (Aortic Graft to RSVG to RSVG - T-graft)�03/09
-S/P Washout with antibiotic solution inspection of all surgical sites and closure with wires and plates, by Dr. Sullivan, 03/11/25
-S/P Endotracheal bronchoscopy with lavage, by Dr. Carpenter, 03/07/25
-S/p Impella was weaned and d/c'd at bedside by Dr. Sullivan 03/12/25
-S/P Bronchoscopy at bedside by Dr. Sullivan 03/12/25
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
-Worsening of aortic valve insufficiency to severe secondary to dissection
-Acute on chronic congestive heart failure with volume overload secondary to new aortic valve insufficiency
-Hypertension
-Hyperlipidemia
-Hypothyroidism
-AFIB on Eliquis
-Ischemic CM
-Recent cardiac surgery over 20 days ago
-Mitral valve insufficiency status post repair
-Tricuspid insufficiency status post repair
-Coronary artery disease status post CABG
-S/P CABG x 4, MV repair, TV repair, MAZE, and EVI exclusion, Dr. Sullivan 02/16/25, Readmitted for SOB on 03/04
-Acute intraop/postop blood loss/Anemia (transfused 14u PRBC's)
-Acute intraop and postop coagulopathy (Administered 10mg Factor VII, 4 of cryo and 11 FFP ); chest packed and kept opened until 03/11/25
-Acute postop thrombocytopenia (transfused 11 {5pks} plts)
-Acute postop Pulmonary insufficiency
-Acute postop VDRF
-Acute postop Metabolic Acidosis, followed by metabolic alkalosis
-Acute postop Lactic acidosis
-IRON
-Cardiac tamponade 03/08/25
-Acute postop cardiogenic shock
-Acute postop scrotal edema
Discussed patient care with: Cardiology, Nursing, Respiratory Therapy, Pharmacy and Care Team
Subjective
-
Date of Service: March 15, 2025
Pt offers no complaints, alert and oriented x 3, moving all extremities appropriately
Objective Data
-
Lab Results
03/15/25 03:17
03/15/25 03:17
PT 18.5 Sec (11.4-14.6) H 03/14/25 04:33
INR 1.52 03/14/25 04:33
APTT 45.8 Sec (23.4-35.0) H 03/11/25 20:02
Vital Signs
Vital Signs
Temp Pulse Resp BP Pulse Ox
98.5 F 90 16 129/79 96
03/15/25 05:00 03/15/25 05:00 03/15/25 05:00 03/15/25 04:19 03/15/25 05:00
CT Intake/Output/Weight
03/14/25 03/14/25 03/15/25
06:59 18:59 06:59
Intake Total 807.2 / 1640.9 782.1 / 1364.0 581.9 / 1364.0
Output Total 1890 / 3650 2790 / 4720 1930 / 4720
Balance -1082.8 / -2009.1 -2007.9 / -3356.0 -1348.1 / -3356.0
SaO2: 96
Physical Exam
-
General: Awake, Oriented and AOx3
Cardiovascular: Regular rate & rhythm, No Murmurs, No Rub and No Gallop
Respiratory: Decreased Breath Sounds (at bases)
Sternum: Stable
Incision: Clean, Dry, Intact and Dressing Intact
Extremities: Edema +2
Data Reviewed
-
Lab Results: Results Reviewed
Medications: Active Meds Reviewed
Chest X-Ray: Report Reviewed and Image Reviewed
ECG: Report Reviewed and Image Reviewed
[2025-03-15] MEDS: KCL 50 IV ×5 (05:12→22:39)
[2025-03-15 06:09] LABS: Glucose - Point of Care 106 mg/dl (70-99)
[2025-03-15] MEDS: MUCOMYST 20% 4 ML INH (07:46)
--- NOTE | 2025-03-15 07:55 | W.PN.INTV ---
Today's Communication / Plan
Recommendations
Ramp up airway clearance, chest percussion every 6 hours
Out of bed to chair as able
Wean oxygen as able
Follow chest tube output
Pressors per CT surgery
Assessment
-
Assessment: 74-year-old male with a past medical history of multivessel CAD s/p CABG, history of severe MR s/p radical mitral valve repair, severe tricuspid valve insufficiency s/p tricuspid valve repair, chronic HFmrEF, hyperlipidemia,
hypertension, paroxysmal A-fib on Eliquis s/p open left atrial maze + left atrial appendage exclusion, hypothyroidism and history of colon adenoma who presents with shortness of breath, poor appetite and ankle swelling. Patient recently had a
cardiothoracic surgery on 02/16 after proceeding left + right heart catheterization on 02/04/2025 showed triple-vessel CAD with mildly elevated biventricular filling pressures. Patient was found to have acute postoperative blood loss anemia,
postoperative coagulopathy and he improved and was able to be discharged home on 02/22/2025. He is now returning with shortness of breath with exertion, lower extremity edema and imaging consistent with acute decompensated heart failure. IV Lasix
started. Echo performed on 03/04/2025 showed reduced EF now at 35-40%, global hypokinesis, with worsening aortic regurgitation from mild/moderate to moderate/severe.He was also started on metoprolol due to NSVT. Given the worsening aortic
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 CT surgery notified and a stat CT
angio chest/abdomen/pelvis was performed confirming an aortic dissection extending throughout the aorta beginning at the root and extending to the aortic bifurcation. There also were small bilateral pleural effusions with other postoperative
changes along the sternum with a possible small hematoma. Patient brought to the OR and underwent a redo sternotomy with extensive adhesiolysis, hemiarch ascending aortic replacement, aortic root replacement, ligation of left and right coronary
ostia as they were dissected, and previous vein grafts were relocated onto the acute marginal vein graft, and his chest was left open. Patient transferred to the CVICU postoperatively, and duplicator punch set up operator services consulted for additional
management/recommendations.
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
(02/16/2025), chronic HFmrEF, hyperlipidemia, hypertension, paroxysmal A-fib s/p open left atrial maze + EVI�exclusion (02/16/2025) on Eliquis, mild aortic valve insufficiency secondary to leaflet prolapse, hypothyroidism, history of colon adenoma
Impression:
#Type A aortic dissection with resultant severe aortic regurgitation s/p redo sternotomy with extensive adhesiolysis, moderate hypothermic circulatory arrest, hemiarch ascending aortic replacement, aortic root replacement, ligation of left and right
coronary ostia as they were dissected followed by relocation of previous vein grafts onto acute marginal vein graft, and chest left open (POD #6)
#Cardiogenic shock now on multiple vasopressors and placement of a 5.5 direct aortic Impella LVAD with subsequent chest closure in usual fashion (POD #5)
#Cardiac tamponade with cardiovascular collapse s/p emergent bedside reopening of chest with ligation of IAN with multiple clot evacuation and repacking with vaginal pack + Kerlix and replacement chest tubes (POD #5)
#Mediastinal reexploration/irrigation and removal packing with repositioning of proximal course of GSV graft with placement of 6 mm ringed PTFE graft around proximal segment of GSV graft with replacement of new mediastinal packing and new open chest
dressing placed (POD#5)
#Kinking of single vein graft s/p ligation of IAN + CABG x 1 with aortic Graft to RSVG to RSVG - T-graft (POD #4)
#Ventilator dependent respiratory failure with acute hypoxia
#IRON with proximal right renal artery narrowing with decreased right kidney perfusion (per CTA chest/abdomen/pelvis from 03/07/2025) s/p CRRT (off CRRT since 03/11/2025)
#Postoperative coagulopathy
#Lactic acidosis � resolved since 03/10/2025
#Acute HFrEF exacerbation (present on admission)
#Shock liver with hyperbilirubinemia � improved
#Chronic anemia (baseline 9.5-11 g/dL)
#Multivessel CAD s/p CABG x 4, severe mitral valve insufficiency s/p radical mitral valve repair, severe tricuspid valve insufficiency (functional) s/p simple tricuspid valve repair (all on 02/16/2025)
#Paroxysmal A-fib s/p open left atrial maze + EVI�exclusion (02/16/2025) on Eliquis
Plan/recommendations:
Remains critically ill, on dobutamine, amiodarone
Patient went back to [facility] on 03/11 for chest closure and bronchoscopy
On 03/12, he went to [facility] for repeat bronchoscopy with Impella removal on 03/12 -respiratory sample sent for cultures (growing GNR � follow up species)
Extubated 03/14
98% on high flow oxygen
Patient appears to be comfortable, does follow commands, able to speak short sentences
Tolerating chest percussion
Had episode of desaturation during change of shift this morning, resolved
Chest x-ray mild right basilar atelectasis
Moving forward
Continue with airway clearance measures
Chest percussion, encouraged cough
Increase chest percussion to every 6 hours
Chest x-ray with mild right pleuroparenchymal atelectasis
Out of bed to chair as able
Remains on dobutamine, amiodarone, Bumex
Negative fluid status noted
Trend MVO2 as well as CI, with goal >65 and >2, respectively while on dobutamine drip
Continue amio gtt
Left groin triple-lumen in place
Cordis in place
Monitor chest tube output
Monitor hemoglobin
Monitor platelet count and coags
Transfuse blood products per CT surgery protocol
Continue insulin drip
Negative fluid status noted
Nephrology following
Remains on Bumex drip
Gram-negative bacilli per endotracheal specimen 03/12, Legionella and streptococcal antigen negative negative
Currently on cefepime, vancomycin
Remains afebrile, white count 15.9
Follow cultures
Aspiration precautions
Head of bed elevated
DVT prophylaxis: Eliquis currently on hold (last dose morning of 03/07/2025)
Early nutrition when able
Early mobilization
Patient is critically ill; continue management in CVICU - Senior Qa Automation Engineer service will continue to follow along.
Critical care statement: A total of 31 minutes of critical care time was provided for this patient today. This includes management of ventilator, spontaneous breathing trial, arterial blood gases, pressors, of unstable vital signs, evaluation of the
patient at bedside, reviewing the patient's pertinent medical records including radiographs, microbiology, laboratory evaluations, and discussion with primary team and critical care nursing.
Data:
CTA chest/abdomen/pelvis with/without contrast 03/07/2025:
1.There is an aortic dissection extending throughout the aorta beginning at the root and extending to the aortic bifurcation consistent with Moses type A dissection.The aortic branch arteries appear to be supplied off the true lumen. There is
associated moderate narrowing of the descending thoracic aorta and proximal abdominal aorta. Additionally there is narrowing at the proximal right renal artery with associated asymmetrically decreased perfusion of the right kidney.
2. Small bilateral pleural effusions with adjacent atelectasis.
3. Postoperative changes along the sternum with a possible small hematoma.
CXR 03/09/2025:
Stable position of the endotracheal tube, [place]-Fabio catheter, Impella device, and bilateral chest tubes.
A sternal retractor again projects over the chest.
No focal consolidation, pleural effusion, or pneumothorax. Sternotomy wires and cardiac valve prostheses. Stable cardiomediastinal silhouette. Chronic degenerative changes of the spine.
Subjective Dataa
Subjective Data
Date of Service:
Date of Service: March 15, 2025
Chief Complaint: Senior Qa Automation Engineer Follow Up
Subjective:
Patient remains critically ill but stable. Tolerating chest percussion. Patient is somewhat confused at times, but able to move all extremities
Objective Data
Data Reviewed
Vital Signs / I&O / Oxygen:
Vital Signs
Temp Pulse Resp BP Pulse Ox
99.2 F 89 19 124/87 93
03/15/25 07:00 03/15/25 07:37 03/15/25 07:37 03/15/25 06:00 03/15/25 07:37
Intake and Output
03/14/25 03/15/25 03/16/25
06:59 06:59 06:59
Intake Total 1535.8 / 1640.9 1443.1 / 1492.8 49.7 / 49.7
Output Total 3425 / 3650 4855 / 5075 220 / 220
Balance -1889.2 / -2009.1 -3411.9 / -3582.2 -170.3 / -170.3
SaO2 [CPAP/PSV] 97
SaO2 [A/C] 95
SaO2 [SIMV] 98
SaO2 93
Nasal Cannula flow liters per 35
minute
Physical Exam
General: Comfortable (Follows commands, generally weak) and Other (On high flow)
HEENT: Normocephalic and Anicteric
Cardiovascular: S1-S2, Regular Rhythm, Murmur (n), Rub (n) and Peripheral Edema (1+)
Respiratory: Wheeze (n), Crackles (n), Rhonchi (few), Non-Labored Respirations, Stridor (n), Chest Tube (No airleak) and Other (Anterior chest dressing)
GI: Soft, Non Distended and Non Tender
Neurology: Awake, Alert and Other (Following commands, moving extremities. He is intermittently confused)
Skin: Cyanosis (n) and Jaundice (n)
Labs/Micro/Reports
Lab Data
03/15/25 03:17
03/15/25 03:17
Laboratory Results
03/14/25 03/14/25
08:42 14:08
pH 7.40 7.41
pCO2 44 43
pO2 139 H 100
HCO3 27.3 27.3
O2 Delivery Level Not Reportable Not Reportable
Microbiology
03/12/25 11:30 Endotracheal Respiratory Culture - Final
Enterobacter amnigenus BG2 2
03/12/25 11:30 Endotracheal Gram Stain - Final
03/12/25 11:30 Urine Legionella Urinary Antigen - Final
Negative for Legionella pneumophila Serogroup 1 antigen.
A negative result does not rule out the possiblity of
Legionella infection due to other serogroups or species of
Legionella. Clinical correlation is recommended.
03/12/25 11:30 Urine Streptococcus pneumoniae Antigen (M - Final
Negative for Streptococcus pneumoniae antigen.
A negative result does not exclude infection with
Streptococcus pneumoniae. Clinical correlation is
recommended.
03/11/25 15:48 Nose Nasal Screen MRSA (PCR) - Final
MRSA not detected - performed by PCR methodology.
[2025-03-15] MEDS: MIRALAX TUBE (08:15)
--- NOTE | 2025-03-15 08:30 | PTCARENOTE ---
Assumed care of patient. Walking rounds completed with previous RN. Pt assessed while he was lying in bed. Pt alert, oriented to self, occasionally stating correctly. Intermittently stating that he is in the hospital, disoriented to time (states
wrong year, occasionally stating its March). Able to squeeze hands and wiggle toes. Weak strength throughout. Denies pain. Junctional rhythm with BBB? rates in the 80s. BP 160s/80s via right radial alvin. BP via cuff 130s/90s. Bilateral radial
pulses palpable. Bilateral DP pulse present via doppler. +2 generalized edema. +3 edema to left upper extremity. CI 2.04. PA pressures 40s/20s. CVP 8-12. Epicardial AV wires to temp pacer box set to VVI 30/15/0.8, no spikes noted. POX 94% on high
flow NC at 50L 50%. Lungs diminished on the left side, coarse throughout. Frequent nonproductive cough, occasional kang sputum via yakhour. Accapella completed as per CT TURF KEEPER. Mediastinal chest tubes y-sited to 1 atrium to -20cm suction draining thin
dark red fluid. Right & Left pleural chest tubes y-sited to 1 atrium to -20cm suction draining thin serosanguineous fluid. No air leaks, tidaling, crepitus noted. Abdomen soft, round, nontender. Hypoactive BS. Denies nausea. Buenrostro catheter intact
draining adequate amounts of clear yellow urine. Catheter care completed. Pt NPO. Sternal incision covered with antibacterial dressing. Old impella exit site with dressing CDI. Right leg old SVG harvest sites intact with ABD CDI. Left leg incisions
covered with antibacterial dressings with old drainage. Right groin puncture site with serous oozing, 4x4 dressing changed. Scrotum swollen and ecchymotic, CT TURF KEEPER notified. Left groin HD cath with pigtail intact. Right IJ cordis intact with swan
floated to 48cm. Right and Left radial alines intact with appropriate waveform, occasional positional for Left radial alvin. All lines flushed leveled, and zeroed. Right forearm 20g PIV intact. Gtts: Bumex, amio. See MAR for medication
administration. See worklist for complete nursing assessment. Plan of care reviewed and patient in agreement.
[2025-03-15 08:53] LABS: Glucose - Point of Care 99 mg/dl (70-99)
[2025-03-15] MEDS: ASPIRIN 300 MG RECTAL (08:53)
[2025-03-15] MEDS: PROTONIX IV 40 MG IV (08:53)
[2025-03-15] MEDS: NOVOLOG FLEXPEN-LOW RESISTANCE SC ×3 (08:53→18:33)
[2025-03-15] MEDS: NSS (PRESERVATIVE FREE) 10 ML IV (08:53)
--- NOTE | 2025-03-15 09:30 | PTCARENOTE ---
Left femoral HD cath d/c per CT PAPER REWINDER. Manual pressure held, hemostasis achieved.
--- NOTE | 2025-03-15 10:14 | CON.ID ---
Consultation
-
Date/Time Consultation Requested: March 15, 2025
Date/Time Consultation Performed: March 15, 2025
Requesting Provider: KRISHNA Mark
Performing Provider: Dr. Carolyne Valdovinos
Reason for Consultation: Pneumonia
Chief Complaint / Past History
History of Present Illness
74-year-old male with history of atrial fibrillation, CAD status post CABG, HFrEF, recently underwent mitral valve repair, tricuspid valve repair, maze and EVI exclusion on 02/16/25 who presented to the ED on March 04, 2025 due to worsening
shortness of breath since cardiac surgery. Chest x-ray showed small bilateral pleural effusions. TTE worsening AI. SAJAN showed aortic dissection. CT angiogram showed Type A aortic dissection extending throughout the aorta from the root to aortic
bifurcation. 03/07/25 he underwent redo sternotomy, hemiarch ascending aorta replacement, aortic root replacement, Relocation of previous vein grafts onto this acute marginal vein graft . Postop complicated by cardiogenic shock requiring Impella
LVAD, anastomosis of a 10 mm straight tube graft off of the ascending aortic graft, graft to graft anastomosis 03/08/25, VDRF, IRON, shock liver, cardiac arrests. 03/09 s/p mediastinal reexploration, irrigation, hematoma evacuation, and removal of
packing, placement of PTFE graft around proximal segment of the greater saphenous vein graft. 03/11 sternal washout, chest closure, and bronchoscopy. CRRT discontinued 03/11. LVAD removed and extubated on 03/14. Today, pt reports + cough and SOB.
Unable to bring up sputum. No abd pain. No diarrhea.
Past History
Additional Past Medical History:
Hypertension
Dyslipidemia
Atrial fibrillation s/p MAZE, EVI exclusion 02/16/25
CAD status post CABG x 4
Mitral valve repair 02/16/25
Tricuspid valve repair 02/16/25
HFrEF
Hypothyroidism
Additional Past Surgical History:
Appendectomy
Neck lipoma excision
Allergy History:
No Known Allergies Allergy (Verified 02/10/25 11:39)
Medications Reviewed: Yes
Current Antibiotics:
Cefepime day 5
Social History
Tobacco: Non-Smoker
Alcohol: Occasional
Drug: None
Personal:
Living: With Family
Family History
Family History: Not Pertinent
Review of Systems
Review of Systems
General: Negative Fever
Cardiovascular: Dyspnea; Negative Chest Pain
Respiratory: Dyspnea and Cough
Genital / Urological: Negative Flank Pain
Endocrine: Weakness
Vital Signs
Temp Pulse Resp BP Pulse Ox
99.2 F 89 28 132/91 97
03/15/25 09:00 03/15/25 09:00 03/15/25 09:00 03/15/25 08:00 03/15/25 09:00
Physical Exam
Physical Exam
Constitutional: Acutely Ill
Head: Other (N frontal or maxillary sinus tenderness)
Eyes: No Conjunctival Hemorrhage
Cardiovascular: Regular Rate and S1/S2
Pulmonary: Rhonchi and Other (Decreased BS bases. [address] )
Gastrointestinal: Soft, Non Tender, Non Distended and Normal Bowel Sounds
Genito-Urinary: Buenrostro and Clear Urine
Extremities: Edema (LUE> RUE, BLE)
Wound: Other (sternal dressing dry)
Neurological: AO x 3
Lines: CVP
Lab / Diagnostic Study Results
03/15/25 03:17
Abs Immat Gran (auto) 0.3 10^3/uL (0-0.05) H 03/10/25 00:23
Absolute Neuts (auto) 8.8 10^3/uL (1.4-6.5) H 03/10/25 00:23
Absolute Lymphs (auto) 1.1 10^3/uL (1.2-3.4) L 03/10/25 00:23
Absolute Monos (auto) 0.9 10^3/uL (0.1-0.6) H 03/10/25 00:23
Absolute Basos (auto) 0.0 10^3/uL (0-0.2) 03/10/25 00:23
Immature Gran % 2.3 % (0-0.5) H 03/10/25 00:23
Neutrophils % 79.2 % (42.2-75.2) H 03/10/25 00:23
Lymphocytes % 9.5 % (20.5-51.1) L 03/10/25 00:23
Monocytes % 8.4 % (1.7-9.3) 03/10/25 00:23
Eosinophils % 0.4 % (0-6) 03/10/25 00:23
Basophils % 0.2 % (0-2) 03/10/25 00:23
PT 18.5 Sec (11.4-14.6) H 03/14/25 04:33
INR 1.52 03/14/25 04:33
Lactic Acid 0.9 mmol/L (0.7-2.0) 03/14/25 04:33
Ur Squamous Epith Cells 3-5 /LPF (Few) 03/07/25 11:10
Microbiology Results
Micro:
03/12/25 11:30 Respiratory Culture - Final
Endotracheal Enterobacter amnigenus BG2 2
Gram Stain - Final
03/12/25 11:30 Legionella Urinary Antigen - Final
Urine Negative for Legionella pneumophila Serogroup 1 antigen.
A negative result does not rule out the possiblity of
Legionella infection due to other serogroups or species of
Legionella. Clinical correlation is recommended.
Streptococcus pneumoniae Antigen (M - Final
Negative for Streptococcus pneumoniae antigen.
A negative result does not exclude infection with
Streptococcus pneumoniae. Clinical correlation is
recommended.
03/11/25 15:48 Nasal Screen MRSA (PCR) - Final
Nose MRSA not detected - performed by PCR methodology.
03/15/25 CXR: Bibasilar opacification most likely representing subsegmental atelectasis and small bilateral pleural effusions.
03/07/25 CTA chest/a/p: There is an aortic dissection extending throughout the aorta beginning at the root and extending to the aortic bifurcation consistent with Moses type A dissection.The aortic branch arteries appear to be supplied off the
true lumen. There is associated moderate narrowing of the descending thoracic aorta and proximal abdominal aorta. Additionally there is narrowing at the proximal right renal artery with associated asymmetrically decreased perfusion of the right
kidney.
Assessment / Plan
# Enterobacter pneumonia
- Increase cefepime dose to 1g IV q6h based on improving renal function
- Mobilize secretions.
- Follow O2 requirement
# Leukocytosis
- trending up
- no diarrhea; No BM since admission
- afebrile
- Evaluating for DVT
- DC lines/tubes when able
- Trend WBC. If continues to increase, check blood cx's.
# Type A aortic dissection
- s/p repair, OR 03/07, 03/08, 03/09, 03/11
# s/p cardiogenic shock
# IRON improving
#Conditions present on admission
Hypertension
Dyslipidemia
Atrial fibrillation s/p MAZE, EVI exclusion 02/16/25
CAD status post CABG x 4
Mitral valve repair 02/16/25
Tricuspid valve repair 02/16/25
HFrEF
Hypothyroidism
--- NOTE | 2025-03-15 10:59 | PTOTSP ---
Speech Therapy Evaluation:
Pt is at high risk of aspiration/silent aspiration given complex hospital course, requiring multiple cardiac surgeries and prolonged intubation (03/07-03/14). Pt tolerated sparing PO trials at bedside, therefore appears appropriate for instrumental
assessment at this time. Recommend FEES to further assess swallow function prior to diet initiation given aforementioned areas of concern.
Recommend:
1. NPO
2. Meds non-oral
3. FEES - to be completed this afternoon
4. Further recommendations pending results of FEES
--- NOTE | 2025-03-15 11:53 | W.PN.NEPH.PH ---
Today's Communication / Plan
-
diurese
Assessment/Plan
-
Impression:
Acute type A Aortic dissection with involvement of bilateral coronary ostia and circumferentially around the root with operative repair on 03/08/25
Acute kidney injury
Postoperative cardiogenic shock now on inotropic support
History of CABG x 4 mitral valve repair tricuspid valve repair maze and EVI exclusion on 02/16/2025
Status post Impella placement on 03/08/2025
Lactic acidosis 12.4
Vent dependent respiratory failure
NSVT
Ischemic cardiomyopathy with EF of 45 to 50%
Atrial fibrillation
History of hypertension
Plan:
for continued diuresis with bumex gtt
follow BMP, currently renal function allowing diuresis
no emergent HD needs
critical care time 31 minutes
-
-
Date of Service: March 15, 2025
CC / HPI / ROS
-
Chief Complaint:
aortic dissection
IRON
History of Present Illness:
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
BP up off pressors, stable
Creatinine unchanged at 2.0, CRRT was discontinued on a.m. of 03/11/2025, CVC removed.
hgb stable low
diuresing well with bumex gtt, dose down last night, back up to 1.5 this am
critically ill in CVICU
Review of Systems:
non oliguric
no CP
Chest tubes
Labs
-
Labs:
WBC 19.5 10^3/uL (4.8-10.8) H 03/15/25 03:17
RBC 2.99 10^6/uL (4.70-6.10) L 03/15/25 03:17
Hgb 9.1 g/dL (13.0-18.0) L 03/15/25 03:17
Hct 28.1 % (39.0-52.0) L 03/15/25 03:17
Plt Count 171 10^3/uL (130-400) D 03/15/25 03:17
eGFR 34.16 03/15/25 03:17
Phosphorus Cancelled 03/12/25 20:00
Gcp-I-Mkqbntrrmas Pept 2970 pg/ml 03/04/25 15:44
Albumin 2.5 g/dl (3.5-5.0) L 03/15/25 03:17
Physical Exam
-
Vital Signs:
Vital Signs
Temp Pulse Resp BP Pulse Ox
99.2 F 90 24 126/83 95
03/15/25 11:00 03/15/25 11:20 03/15/25 11:20 03/15/25 10:00 03/15/25 11:20
Cardiovascular:: Regular rate and rhythm
Respiratory:: Bilateral: Coarse
Lung Excursion:: Normal
Abdomen:: Nontender and Soft
Bowel Sounds:: Decreased
Extremity Edema:: +2: Bilateral:
[2025-03-15] MEDS: LOPRESSOR 5 MG IV (11:56)
--- NOTE | 2025-03-15 12:00 | PTCARENOTE ---
Pt reassessed. Orientation unchanged, oriented to person, not time or place. Confused/inappropriate conversation noted. Denies pain, nausea, and shortness of breath. Per cardiology, pt in Aflutter with rates in the 80s. BP 120/69 via cuff, 150s/70s
via alvin. POX 93% on 45L 40% of High flow NC. CT output WNL. UO adequate. Acapella completed. Remains NPO. B/l groin dressings changed via wound nurse CDI. Remains on Amio and Bumex gtt. B/l radial alines intact, Right IJ cordis and swan intact.
Right forearm PIV intact.
[2025-03-15 12:01] LABS: Glucose - Point of Care 114 mg/dl (70-99)
[2025-03-15 12:30] LABS: Blood Urea Nitrogen 64 mg/dl (9-20); Calcium 7.8 mg/dl (8.4-10.2); Carbon Dioxide 28 mmol/L (22-30); Chloride 110 mmol/L (98-107); Estimated Creatinine Clearance 36 ml/min; Glucose 110 mg/dl (70-99); Magnesium 2.2 mg/dl (1.6-2.3); Potassium 3.3 mmol/L (3.5-5.1); Sodium 145 mmol/L (135-145); eGFR 32.22
[2025-03-15 12:31] LABS: APTT 37.3 Sec (23.4-35.0)
[2025-03-15] MEDS: CORDARONE 259 MG IV (12:54)
--- NOTE | 2025-03-15 12:55 | WOUNDNOTE ---
WON RN NOTE: Followed up today as requested by nurse Wild for leaking old catheter access sites in both groins. Nurse confirmed patient is 3rd spacing and having large amt of serous drainage, having to change dressing q 2 hrs. Today applied
folded 4x4 of alginate over sites, covered with 4x4 silicone foam. Recommended to nurse change dressing twice a day and as needed for drainage. Called [facility] for additional supplies.
--- NOTE | 2025-03-15 13:00 | PTCARENOTE ---
Pt kenia OOB with PT, RT, and 2 RN. Pt tolerated.
[2025-03-15] MEDS: HEPARIN 25000 UNITS/250 ML IV (13:15)
--- NOTE | 2025-03-15 13:24 | VATNOTE ---
PICC order noted. Spoke with KAVYA Abbott who states patient is unavailable at this time. PCN made aware that no VAT nurse will be available from [phone] PICC; PCLillie states PICC is not urgent and it can be done later.
[2025-03-15] MEDS: BUMEX 100 IV (15:19)
--- NOTE | 2025-03-15 15:28 | PTOTSP ---
Speech Therapy FEES:
Patient presents with moderate pharyngeal stage dysphagia. Responsive aspiration occurred with ice chips and thin liquids. Deep laryngeal penetration occurred with mildly thick and moderately thick liquids. Aspiration was not visualized with these
consistencies, however suspect likely aspiration. Upper penetration occurred with puree. Increasing pharyngeal residuals noted as viscosity increased. Unable to determine if full clearance of puree achieved due to obstruction of view following
initial swallow. Study somewhat limited due to growing intolerance of test, positioning limitations, frequent distractions, and decreased command following. Suspect etiology of swallow dysfunction due to complex hospital course requiring multiple
cardiac surgeries and prolonged intubation.
Recommend:
1. NPO with consideration of non-oral means of nutrition
2. Medications non-oral
3. ARHP via SPARING ice chips every hour with supervision. Patient is at high risk for decompensation, however recommend ARHP to further prevent disuse atrophy. Ensure thorough oral care completed via suction toothbrush prior.
4. Oral care 3x/daily via suction toothbrush
5. TOOL AND DIE TECHNICIAN to follow
--- NOTE | 2025-03-15 16:00 | PTCARENOTE ---
Pt placed back to bed via mohinder lift with 3 RN and RT. Pt tolerated. POX 96% on HFNC 40L 40%. Aflutter with rates in the 90s. Surgical sites stable. CT output unchanged. Orientation unchanged, oriented to self. Continues to 'pick' at things without
success for reorientating. No other acute changes.
--- NOTE | 2025-03-15 16:30 | PTCARENOTE ---
repeat labs drawn and sent, CHG bath completed.
--- NOTE | 2025-03-15 17:00 | PTCARENOTE ---
POX 83%. RT notified, at bedside. HFNC increased to 45L 40%. POX 96%.
--- NOTE | 2025-03-15 18:07 | W.PN.UPDATE ---
Update Note
Progress Note Update
Asked by CT surgery to evaluate patient for waxing and waning oxygen requirements
Patient currently on high flow oxygen, 92 to 93%
Chest exam is unchanged from this morning
Unfortunately, patient does not cough on command
Doppler study negative for DVT
Chest ultrasound negative for significant effusions
I suspect intermittent hypoxia is from intermittent atelectasis, mucous plugging
Patient profoundly deconditioned, and does not respond consistently to aggressive airway clearance
For now continue with chest percussion/support bed every 4 hours
Encourage cough
Unfortunately, mucolytic therapy may help, but if patient does not actively cough, will continue to have intermittent issues with atelectasis, plugging
Will order NIV to be available through the night if needed. Settings BIPAP 14/8, 100%, RR 14, Vt 500
CXR in am as indicated
Consider nasal trumpet in the a.m. with frequent suctioning throughout the day
Reviewed with respiratory care, CT surgery PA
--- NOTE | 2025-03-15 18:12 | W.PN.CD ---
Today's Communication / Plan
-
seen this morning. awake alert. remais on high flow
wean O2 as tolerated
patient in rate controlled atrial flutter. Timing of anticoaglation being determined by Dr Sullivan
Platelets improved. Monitor . Reassess use of ASA
Impression / Plan
-
Impression/Plan: 74 yo male with PMH of ICM EF 35-40%, chronic HFrEF, persistent A fib on eliquis, HTN, CAD s/p CABG x 4, MV repair, TV repair, MAZE, and EVI exclusion with Dr. Sullivan (02/16/25); admitted on 03/04/2025 with acute on chronic HFrEF,
subsequently found to have severe AR due to [place] type A aortic dissection.
#Aortic dissection
-Acute, [place] type A w/ involvement of b/l Coronary ostia and circumferentially around the root causing severe AI, distally to the Aorto-iliac bifurcation complicated by shock.
-s/p #27 valved conduit and hemiarch replacement, ligation of L and R coronary ostia as they were dissected; bypass grafting to an acute marginal and relocation of previous vein grafts onto acute marginal vein graft..
-Loss of Impella pulsatility lead to TTE guided repositioning. Patient was re-opened at the bedside, revealing clot around the right ventricle and SVG that appeared to compress both. The clot was evacuated (05/08/2025).
-Arterial bleeding was observed from the IAN bed, which was clipped and a sternal wire site which was double ligated with good hemostasis (03/08/2025).
-CI dwindled overnight, improved to 2.06. [place] = 0.84 [place]. Delphine = 0.8.
-The patient has had several episodes of hypotension, though to be due to compression of the SVG. The patient was taken to OR for placement of a ringed graft to prevent compression (03/09/2025).
-Patient returned to the OR for ligation of the IAN (persistent bleeding) and re-bypass to address the angulation of the original SVG to Diag, which is thought to be leading to his multiple hypotensive episodes (03/09/2025).
-now s/p chest closure and Impella removal.
- Of pressors and extubated
- still with chest tubes. Post op care per Ct surgery
# Ventilator supported hypoxic RF
- successully extubated 03/14/25
- wean O2 as tolerated.
#HFrEF/ICMO
-Acute on chronic in the setting of Type A dissection with moderate/severe AI.
-Weight up 26 lbs now
-now on bumex gtt,
-nephrology following
- GDMT - continue to assess as he recovers. Currently limited by IRON
#Heme
-Anemia (s/p 14 units PRBC's to date).
-Acute, post operative -
-HB stable 03/11- 03/15 ,Monitor
-Thrombocytopenia (s/p 6 units of platelets to date).
-improved 171.
#CAD
-Chronic, stable.
-S/P CABG x 4 (MAGANA to LAD, SVG to OM1 to LPL, SVG to Diag).
-During operation for Ao dissection, the SVG graft was anastomosed to the SVG to diagonal graft and the LMCA/RCA were ligated to prevent further propagation of the dissection plane.
-The current anatomy is MAGANA to LAD, SVG from Ao graft to SVG to diagnoal, sequential SVG Y-graft from diagonal graft to OM1 to LPL.
#Mitral regurgitation
-Chronic, stable
-S/P MV repair (closure of cleft between P2 and P3, free edge remodeling between P3 and commissure, placement of single [place] suture from anterolateral papillary muscle head to P2 and P3, #32 Taylor Physio Flex band annuloplasty, SN [id number])
with Dr. Sullivan, 02/16/2025.
#Tricuspid regurgitation
-Chronic, stable.
-S/P TV repair (Simple tricuspid valve repair with #34 Medtronic Triad band annuloplasty, SN [id number]) with Dr. Sullivan, 02/16/2025.
#Atrial fibrillation
-Persistent. currently in flutter
-Rate/rhythm control with amiodarone, s/p MAZE with Dr. Sullivan, 02/16/2025.
-CHADS2-Vasc = 5 (CHF, HTN, Age x2, vascular disease).
-Anti-thrombotic therapy titrated based on coagulopathy, S/P LAAE (#40 AtriClip, SN [id number]) with Dr. Sullivan, 02/16/2025.
#IRON
- cr 2.0. nephrology following
#Acute liver injury
-Severe, multifactorial.
-LFTs normalized .
Critical Care Time = 32 minutes.
Subjective/Interval History:
extubated, doing well
DATA:
TTE, 03/04/2025:
SUMMARY
1. Moderately reduced LV systolic function. Ejection fraction is 35-40%. Global hypokinesis.
2. S/p mitral valve repair with peak/mean gradients of 15/5 mmHg. Trace mitral valve regurgitation.
3. Moderate/severe aortic regurgitation. PHT approx 250 msec.
4. S/p tricuspid valve repair with mean gradient of 2 mmHg. Mild tricuspid regurgitation. Estimated PASP 38 mmHg, assuming RAP 8 mmHg. Mildly elevated PASP.
5. Compared to 02/19/25: LVEF is stable in 35-40% range, mitral valve and tricuspid valve repairs are stable; aortic regurgitation has progressed from mild/moderate to moderate/severe.
SAJAN, 03/07/2025:
SUMMARY
1. There is a [place] type A DeBakey class I aortic dissection present.
2. Trileaflet aortic valve. Severe aortic regurgitation due to prolapse of the left vs non coronary cusp and aortic dissection.
3. Low normal ventricular systolic function. LVEF 45-50%.
4. S/p tricuspid valve repair. Trace residual tricuspid regurgitation.
5. S/p mitral valve repair. Trace residual mitral regurgitation.
6. Dr. Sullivan (CT surgery) notified of findings at time of study.
CT surgery, 03/07/2025:
Procedure(s) Performed:
1. Ultrasound-guided access using Seldinger technique 2 the right common femoral artery and vein with percutaneous access using a 25 [place] femoral venous cannula
2. Redo sternotomy with extensive adhesiolysis (Modifier 22 for additional dissection time of 1 hour)
3. Direct aortic cannulation using ultrasound and Seldinger technique with a SAJAN guidance verifying true lumen access
4. Moderate hypothermic circulatory arrest with antegrade cerebral perfusion
5. Hemiarch ascending aortic replacement
6. Aortic root replacement using a 27 mm valved conduit
7. Ligation of left and right coronary ostia as they were dissected coronary bypass grafting to an acute marginal
8. Relocation of previous vein grafts onto this acute marginal vein graft
9. Placement of temporary atrial ventricular pacing wires
10. Transesophageal echocardiography
11. Temporary chest packing, open chest.
Impella Placement, 03/08/2025:
Procedure(s) Performed:
1. The temporary dressing over top of the open chest was removed
2. Placement of atrial pacing wires
3. Anastomosis of a 10 mm straight tube graft off of the ascending aortic graft, graft to graft anastomosis
4. Graft tunneled to the left supra clavicular region between the strap muscles
5. Placement of a 5.5 direct aortic Impella LVAD
6. Chest closure in usual fashion
TTE, 03/08/2025:
SUMMARY
1. TDS.
2. In limited views, left ventricle appears normal sized with severely reduced systolic function. Left ventricle ejection fraction is 25-30% by visual estimation. Global hypokinesis. S/p Impella 5.5 insertion which appears to be appropriately
placed.
3. In limited views right ventricle appears normal sized with mildly reduced systolic function. Right ventricle does appear to expand in diastole.
4. Limited valvular interrogation.
5. Compared to SAJAN earlier in day, overall, no significant change.
Bedside Rexploration, 03/08/2025:
Procedure: Emergency bedside reopening of chest and the loculation of clot ligation of IAN which was the bleeding source, repacking with 1 vaginal pack and Kerlix and replacement of new chest tubes
CT surgery re-exploration, 03/09/2025 (morning):
PROCEDURES:
1. Mediastinal reexploration/irrigation and removal of packing.
2. Repositioning of proximal course of greater saphenous vein graft
with several 6-0 Prolene sutures (placed/subsequently removed).
3. Placement of 6 mm ringed PTFE graft around proximal segment of
greater saphenous vein graft .
4. Replacement of new mediastinal packing (1 vaginal pack and
partial roll of Kerlix; syringe based sternal separation).
5. Reexploration with replacement of new open chest dressing.
CT surgery re-exploration, 03/09/2025 (afternoon):
Procedure(s) Performed:
1. Reopening of temporary chest coverage.
2. Ligation of IAN.
3. Coronary artery bypass grafting x 1 (Aortic Graft to RSVG to RSVG - T-graft).
4. Open vein harvest of the left thigh.
5. Transesophageal echocardiography.
6. Repacking of chest and placement of temporary dressing.
Physical Exam
Vital Signs/Labs
Vital Signs
Temp Pulse Resp BP Pulse Ox
99.5 F 92 26 127/81 95
03/15/25 16:00 03/15/25 17:10 03/15/25 17:10 03/15/25 16:36 03/15/25 17:15
03/14/25 03/15/25 03/16/25
06:59 06:59 06:59
Actual Weight 102.8 kg 97.9 kg
03/15/25 03:17
PT 18.5 Sec (11.4-14.6) H 03/14/25 04:33
INR 1.52 03/14/25 04:33
APTT 37.3 Sec (23.4-35.0) H 03/15/25 11:58
Magnesium 2.2 mg/dl (1.6-2.3) 03/15/25 11:49
Triglycerides 111 mg/dl (10-149) 03/13/25 04:21
03/04/25
15:44
Uxt-B-Tvxntknudyu Pept 2970
Physical Exam
Constitutional: No acute distress
Cardiovascular: Rhythm & rate is regular
Respiratory: Wheeze Absent and Other (some rhonchi as he tries to raise secretions this morning. chest tubesin place)
GI: Soft and Non tender
Neuro/Psych: Alert
Data Reviewed
-
Date of Service: March 15, 2025
Medical Decision Making: Reviewed Test Results
X-Ray/CT/US/MRI/NUC/PET: Report Reviewed by me
Medical Tests (PFT, Pathology etc): Report Reviewed by me
Labs: Labs Reviewed by me
[2025-03-15] MEDS: FLEXBUMIN 50 IV (18:14)
[2025-03-15] MEDS: LOPRESSOR 7.5 MG IV (18:18)
[2025-03-15] MEDS: LEVOTHROID 112.5 MCG IV (18:29)
[2025-03-15 18:31] LABS: Glucose - Point of Care 114 mg/dl (70-99)
[2025-03-15 18:36] LABS: B.E. 2.9 mmol/L; HCO3 27.1 mmol/L (21-28); O2 Saturation % 97.9 % (94-98); O2 Therapy HFNC; PCO2 39 mmHg (35-48); PO2 83 mmHg (83-108); Potassium 3.7 mMOL/L (3.5-5.1); Sodium 144 mMOL/L (136-145)
[2025-03-15 18:47] LABS: APTT 39.8 Sec (23.4-35.0)
[2025-03-15 19:00] LABS: Blood Urea Nitrogen 68 mg/dl (9-20); Calcium 8.2 mg/dl (8.4-10.2); Carbon Dioxide 28 mmol/L (22-30); Chloride 111 mmol/L (98-107); Estimated Creatinine Clearance 35 ml/min; Glucose 118 mg/dl (70-99); Magnesium 2.2 mg/dl (1.6-2.3); Potassium 3.6 mmol/L (3.5-5.1); Sodium 144 mmol/L (135-145); eGFR 30.47
--- NOTE | 2025-03-15 19:00 | PTCARENOTE ---
assumed care of patient @ 1900. recieved pt laying in bed -
Neuro- Alert to self only. can state full name and , but thinks he is at home . Pt is slightly agitated at staff, thinks neighbor is also trying to steal his tools. 1:1 sitter present in room d/t patient pulling at lines. emotional support and
redirection provided. Moves all extremeties appropriately, pupils equal round and reactive
CV- A flutter on monitor HR 80s-90s. BP elevated to 150s systolically, lower on cuff. +2 anasarca, +3 left upper extremity pitting edema. Paps 30s/10s, CVP ~ 4. V wire present to backup VVI 30,15, .8.
Lungs - Diminished and coarse with scattered rhonci thoghout. pt coughing up FEES study green liquid. Mouth care provided. Currently on HFNC 80% 60L satting mid 90s. 4 chest tubes to wall suction no air leak, tidaling or crepitus noted.
GI- Belly soft, hypoactive. Currently NPO. No BM yet.
- adams draining good amount of clear yellow urine.
Skin- Sternum dressing with scant old drainage, Impella site with dressing CDI , CT dressing CDI, R/L groin dressings are CDI no exessive weeping noted, R leg old SVG sites CDI KRYSTYNA, L thigh and leg SVG sites with aquacel, STG 1 on sacrum, scattered
skin tears on flank/back. q2 hr repositioning provided.
Lines- R IJ cordis with swan, R forearm PIV. L&R radial A lines. central lines zeroed, flushed. awaiting PICC placement by IV team, then will d/c swan.
Meds- Heparin at 500, bumex at 1.5, amio at 0.5
[2025-03-15] MEDS: NSS IV (19:03)
[2025-03-15] MEDS: MUCOMYST 20% INH (20:27)
--- NOTE | 2025-03-15 21:00 | PTCARENOTE ---
R arm PICC placed by IV team, xray taken to confirm placement. CTPA unsure of where catheter terminates, will await final radiology report before using.
[2025-03-15 22:24] LABS: B.E. 2.0 mmol/L; HCO3 26.5 mmol/L (21-28); O2 Saturation % 99.4 % (94-98); PCO2 40 mmHg (35-48); PO2 199 mmHg (83-108); Potassium 3.0 mMOL/L (3.5-5.1)
--- NOTE | 2025-03-15 22:30 | PTCARENOTE ---
abg sent, K low , repleted, weaned to 70% 50L by RT per CTPA .
[2025-03-16] VITALS (22 sets, daily range): BP systolic 117–153; BP diastolic 73–110; PULSE 87–88; O2SAT 99; BMI 29.5
[2025-03-16] MEDS: KCL 50 IV ×6 (00:02→23:35)
[2025-03-16] MEDS: MAXIPIME 1000 MG IV ×4 (00:07→19:53)
[2025-03-16] MEDS: LOPRESSOR 7.5 MG IV ×3 (00:08→11:57)
[2025-03-16] MEDS: STERILE WATER FOR INJECTION 10 ML IV ×4 (00:08→19:54)
[2025-03-16] MEDS: FLEXBUMIN 50 IV ×2 (00:14→08:15)
[2025-03-16 00:22] LABS: Glucose - Point of Care 109 mg/dl (70-99)
[2025-03-16] MEDS: NOVOLOG FLEXPEN-LOW RESISTANCE SC ×4 (00:31→16:53)
--- NOTE | 2025-03-16 00:35 | PTCARENOTE ---
patient currently sleeping and appears comfortable. no acute change in assessment .
[2025-03-16 00:51] LABS: APTT 39.8 Sec (23.4-35.0)
[2025-03-16 01:00] LABS: Blood Urea Nitrogen 74 mg/dl (9-20); Calcium 8.0 mg/dl (8.4-10.2); Carbon Dioxide 29 mmol/L (22-30); Chloride 112 mmol/L (98-107); Estimated Creatinine Clearance 36 ml/min; Glucose 124 mg/dl (70-99); Magnesium 2.3 mg/dl (1.6-2.3); Potassium 3.7 mmol/L (3.5-5.1); Sodium 147 mmol/L (135-145); eGFR 32.22
[2025-03-16] MEDS: VENTOLIN NEBULES 2.5 MG INH ×5 (04:18→19:12)
[2025-03-16 05:21] LABS: B.E. 2.4 mmol/L; HCO3 27.3 mmol/L (21-28); O2 Saturation % 99.7 % (94-98); PCO2 43 mmHg (35-48); PO2 148 mmHg (83-108); Potassium 3.7 mMOL/L (3.5-5.1)
[2025-03-16] MEDS: CORDARONE 259 MG IV ×2 (05:24→22:52)
[2025-03-16] MEDS: BUMEX 100 IV (05:24)
[2025-03-16 05:26] LABS: Hematocrit 26.8 % (39.0-52.0); Hemoglobin 8.5 g/dL (13.0-18.0); Mean Corp Hgb Conc. 31.7 g/dL (33.0-37.0); Mean Corpuscular Volume 96.4 fL (80.0-94.0); Platelet Count 202 10^3/uL (130-400); Red Cell Dist. Width 19.2 % (11.5-14.5)
[2025-03-16] MEDS: MUCOMYST 20% 4 ML INH ×2 (05:52→19:12)
[2025-03-16 05:57] LABS: ALT (SGPT) 24 U/L (0-50); AST (SGOT) 51 U/L (17-59); Albumin 2.7 g/dl (3.5-5.0); Alkaline Phosphatase 186 U/L (38-126); Blood Urea Nitrogen 77 mg/dl (9-20); Calcium 7.9 mg/dl (8.4-10.2); Carbon Dioxide 28 mmol/L (22-30); Chloride 112 mmol/L (98-107); Estimated Creatinine Clearance 40 ml/min; Glucose 126 mg/dl (70-99); Magnesium 2.2 mg/dl (1.6-2.3); Potassium 3.5 mmol/L (3.5-5.1); Sodium 147 mmol/L (135-145); Total Protein 5.2 g/dl (6.3-8.2); eGFR 36.33
[2025-03-16 06:12] LABS: Glucose - Point of Care 127 mg/dl (70-99)
--- NOTE | 2025-03-16 06:34 | W.PN.CT ---
Today's Communication / Plan
-
Plan:
-No major issues overnight. Hemodynamically intact. Alert and oriented x 3, moving all extremities appropriately. A bit impulsive and currently has 1:1 observation
-Extubated on 03/14/25 @ 0505, currently doing well on high flow O2, 40L/50% fio2, weaned overnight from 70L/80% fio2
-Pt appears to desats when unable to clear airway. He's deconditioned but appears to be improving daily, able to pull 500 mL on IS last night and coughed up thick secretions
-Currently on Mucomyst. Also on heparin gtt so careful with suctioning
-Wean O2 as tolerated
-Encourage use of IS/Acapella
-Cont. chest PT
-CXR improving
-Sputum from bronchoscopy grew Enterobacter, on Cefepime per ID
-Currently on Bumex gtt @ 1.5 mg/hr, Amiodarone gtt @ 0.5, and heparin gtt @ 550 units/hr with goal PTT 40-60. D/C'd Fentanyl, Propofol, Dobutamine, Epinephrine, Levophed and vasopressin
-Impella was weaned and d/c'd at bedside by Dr. Sullivan on 03/12/25
-Last CI 2.45, MVO2 75.2
-Underwent Bronchoscopy at bedside by Dr. Sullivan on03/12/25, f/u culture. F/U cxr
-Underwent chest washout/closure and bronchoscopy with lavage on 03/11/25
-Remains on empiric Cefepime; Vancomycin has been d/c'd
-Monitor chest tube output: 2meds 75/335, R/l Pleurals 305/735
-Monitor h/h 8.5/26.8
-Monitor plts 98K -> 171K-> 202K
-Monitor cr 2.0->1.9
-Replete K, 3.5
-Elevate scrotum in light of scrotal edema
-Tolerating resumption of BB, currently on IV, may need Dobhoff/OG tube to help transition to PO long acting BB given HFrEF
-Holding PO meds while intubated
-Will d/c swan and a-line once off dobutamine
-Maintain adams catheter for accurate I/O's while on dobutamine
-Maintain cordis for phlebotomy/medication administration
-Maintain temporary v-wire
-D/C'd right femoral artery groin sheath and right femoral vein puncture site retention suture without incident 03/12/25
-Consider D/C of left groin triple lumen central line
-OOB into chair
-Consider nutritional intake, prealbumin low, 4.7
-Will need PT/OT/SP evaluation. Failed swallow evaluation yesterday 03/15
-Eventual resumption of Eliquis for PAF hx
-Eventual rehab placement
Assessment / Plan
-
Assessment:
-S/p Emergent Redo sternotomy with extensive adhesiolysis (Modifier 22 for additional dissection time of 1 hour)/Hemiarch ascending aortic replacement/ Aortic root replacement using a 27 mm valved conduit/Ligation of left and right coronary ostia as
they were dissected coronary bypass grafting to an acute marginal/Relocation of previous vein grafts onto this acute marginal vein graft/Temporary chest packing, open chest, by Dr. Sullivan, 03/07/25, pod#9
-S/p placement of a 5.5 direct aortic Impella LVAD on 03/08/[address] Sullivan
-Cardic tamponade/ Cardiovascular collapse- s/p Emergency bedside reopening of chest and the evacuation of clot; ligation of IAN, which was the bleeding source; repacking with 1 vaginal pack and Kerlix; replacement of new chest tubes by Dr. Sullivan on
03/08/25
S/p�mediastinal�reexploration/irrigation and placement of�6mm�ringed PTFE graft around the greater�saphaenous�graft. ���S/P�Emergent�Ligation of IAN, Coronary artery bypass grafting x 1 (Aortic Graft to RSVG to RSVG - T-graft)�03/09
-S/P Washout with antibiotic solution inspection of all surgical sites and closure with wires and plates, by Dr. Sullivan, 03/11/25
-S/P Endotracheal bronchoscopy with lavage, by Dr. Carpenter, 03/07/25
-S/p Impella was weaned and d/c'd at bedside by Dr. Sullivan 03/12/25
-S/P Bronchoscopy at bedside by Dr. Sullivan 03/12/25
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
-Worsening of aortic valve insufficiency to severe secondary to dissection
-Acute on chronic congestive heart failure with volume overload secondary to new aortic valve insufficiency
-Hypertension
-Hyperlipidemia
-Hypothyroidism
-AFIB on Eliquis
-Ischemic CM
-Recent cardiac surgery over 20 days ago
-Mitral valve insufficiency status post repair
-Tricuspid insufficiency status post repair
-Coronary artery disease status post CABG
-S/P CABG x 4, MV repair, TV repair, MAZE, and EVI exclusion, Dr. Sullivan 02/16/25, Readmitted for SOB on 03/04
-Acute intraop/postop blood loss/Anemia (transfused 14u PRBC's)
-Acute intraop and postop coagulopathy (Administered 10mg Factor VII, 4 of cryo and 11 FFP ); chest packed and kept opened until 03/11/25
-Acute postop thrombocytopenia (transfused 11 {5pks} plts)
-Acute postop Pulmonary insufficiency
-Acute postop VDRF
-Acute postop Metabolic Acidosis, followed by metabolic alkalosis
-Acute postop Lactic acidosis
-IRON
-Cardiac tamponade 03/08/25
-Acute postop cardiogenic shock
-Acute postop scrotal edema
Discussed patient care with: Cardiology, Nursing, Respiratory Therapy, Pharmacy and Care Team
Subjective
-
Date of Service: March 16, 2025
Pt follows commands and moves extremities appropriately, however a bit impulsive. Appears deconditioned
Objective Data
-
Lab Results
03/16/25 05:13
03/16/25 06:00
PT 18.5 Sec (11.4-14.6) H 03/14/25 04:33
INR 1.52 03/14/25 04:33
APTT 39.8 Sec (23.4-35.0) H 03/16/25 00:30
Vital Signs
Vital Signs
Temp Pulse Resp BP Pulse Ox
98.9 F 87 24 136/93 97
03/16/25 06:00 03/16/25 06:20 03/16/25 06:20 03/16/25 06:03 03/16/25 06:20
CT Intake/Output/Weight
03/15/25 03/15/25 03/16/25
06:59 18:59 06:59
Intake Total 661.0 / 1492.8 716.4 / 1350.8 634.4 / 1350.8
Output Total 2065 / 5075 1295 / 3000 1705 / 3000
Balance -1404.0 / -3582.2 -578.6 / -1649.2 -1070.6 / -1649.2
SaO2: 97 (HFNC 40L/50% FIO2)
Physical Exam
-
General: Awake, Oriented and AOx3
Cardiovascular: Regular rate & rhythm, No Murmurs and No Gallop
Respiratory: Decreased Breath Sounds
Sternum: Stable
Incision: Clean, Dry, Intact and Dressing Intact
Extremities: No Edema
Data Reviewed
-
Lab Results: Results Reviewed
Medications: Active Meds Reviewed
Chest X-Ray: Report Reviewed and Image Reviewed
ECG: Report Reviewed and Image Reviewed
--- NOTE | 2025-03-16 07:24 | PTCARENOTE ---
hf weaned to 50 % 40 L by RT - labs sent, swan and L radial A line d/cd per order.
--- NOTE | 2025-03-16 07:56 | W.PN.INTV ---
Addendum entered and electronically signed by Luciano Gonzalez MD 03/16/25 18:35:
Patient transferred to telemetry
Pulmonary will continue to follow
Original Note:
Today's Communication / Plan
Recommendations
Continue chest percussion, airway clearance
Aspiration precautions
Nasal trumpet for 12 hours with every 2 hours suction
NAC nebs
Pursue bronchoscopy as indicated. Unfortunately, if pursued at bedside, will need to do without any sedation
High risk for reintubation with sedation
Assessment
-
Assessment: 74-year-old male with a past medical history of multivessel CAD s/p CABG, history of severe MR s/p radical mitral valve repair, severe tricuspid valve insufficiency s/p tricuspid valve repair, chronic HFmrEF, hyperlipidemia,
hypertension, paroxysmal A-fib on Eliquis s/p open left atrial maze + left atrial appendage exclusion, hypothyroidism and history of colon adenoma who presents with shortness of breath, poor appetite and ankle swelling. Patient recently had a
cardiothoracic surgery on 02/16 after proceeding left + right heart catheterization on 02/04/2025 showed triple-vessel CAD with mildly elevated biventricular filling pressures. Patient was found to have acute postoperative blood loss anemia,
postoperative coagulopathy and he improved and was able to be discharged home on 02/22/2025. He is now returning with shortness of breath with exertion, lower extremity edema and imaging consistent with acute decompensated heart failure. IV Lasix
started. Echo performed on 03/04/2025 showed reduced EF now at 35-40%, global hypokinesis, with worsening aortic regurgitation from mild/moderate to moderate/severe.He was also started on metoprolol due to NSVT. Given the worsening aortic
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 CT surgery notified and a stat CT
angio chest/abdomen/pelvis was performed confirming an aortic dissection extending throughout the aorta beginning at the root and extending to the aortic bifurcation. There also were small bilateral pleural effusions with other postoperative
changes along the sternum with a possible small hematoma. Patient brought to the OR and underwent a redo sternotomy with extensive adhesiolysis, hemiarch ascending aortic replacement, aortic root replacement, ligation of left and right coronary
ostia as they were dissected, and previous vein grafts were relocated onto the acute marginal vein graft, and his chest was left open. Patient transferred to the CVICU postoperatively, and extrusion process operator services consulted for additional
management/recommendations.
Patient went back to [facility] on 03/11 for chest closure and bronchoscopy
On 03/12, he went to [facility] for repeat bronchoscopy with Impella removal on 03/12 -respiratory sample sent for cultures (growing GNR � follow up species)
Extubated 03/14
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
(02/16/2025), chronic HFmrEF, hyperlipidemia, hypertension, paroxysmal A-fib s/p open left atrial maze + EVI�exclusion (02/16/2025) on Eliquis, mild aortic valve insufficiency secondary to leaflet prolapse, hypothyroidism, history of colon adenoma
Impression:
#Type A aortic dissection with resultant severe aortic regurgitation s/p redo sternotomy with extensive adhesiolysis, moderate hypothermic circulatory arrest, hemiarch ascending aortic replacement, aortic root replacement, ligation of left and right
coronary ostia as they were dissected followed by relocation of previous vein grafts onto acute marginal vein graft, and chest left open (POD #6)
#Cardiogenic shock now on multiple vasopressors and placement of a 5.5 direct aortic Impella LVAD with subsequent chest closure in usual fashion (POD #5)
#Cardiac tamponade with cardiovascular collapse s/p emergent bedside reopening of chest with ligation of IAN with multiple clot evacuation and repacking with vaginal pack + Kerlix and replacement chest tubes (POD #5)
#Mediastinal reexploration/irrigation and removal packing with repositioning of proximal course of GSV graft with placement of 6 mm ringed PTFE graft around proximal segment of GSV graft with replacement of new mediastinal packing and new open chest
dressing placed (POD#5)
#Kinking of single vein graft s/p ligation of IAN + CABG x 1 with aortic Graft to RSVG to RSVG - T-graft (POD #4)
#Ventilator dependent respiratory failure with acute hypoxia
#IRON with proximal right renal artery narrowing with decreased right kidney perfusion (per CTA chest/abdomen/pelvis from 03/07/2025) s/p CRRT (off CRRT since 03/11/2025)
#Postoperative coagulopathy
#Lactic acidosis � resolved since 03/10/2025
#Acute HFrEF exacerbation (present on admission)
#Shock liver with hyperbilirubinemia � improved
#Chronic anemia (baseline 9.5-11 g/dL)
#Multivessel CAD s/p CABG x 4, severe mitral valve insufficiency s/p radical mitral valve repair, severe tricuspid valve insufficiency (functional) s/p simple tricuspid valve repair (all on 02/16/2025)
#Paroxysmal A-fib s/p open left atrial maze + EVI�exclusion (02/16/2025) on Eliquis
Plan/recommendations:
Remains critically ill, on dobutamine, amiodarone
98% on high flow oxygen, being weaned
Patient appears to be comfortable, does follow commands, able to speak short sentences
Tolerating chest percussion
Chest x-ray with mild left basilar atelectasis
Remains profoundly deconditioned, weak cough
Moving forward
Continue with airway clearance measures
Chest percussion, encouraged cough
Increased chest percussion to every 6 hours
NAC nebs
nasal trumpet today with q 2 sxn, then dc trumpet in pm
Out of bed to chair as able
Will consider bronchoscopy at bedside as indicated however if not intubated will need to do with minimal sedation given high risk for reintubation
Remains on dobutamine, amiodarone, Bumex
Negative fluid status noted
Trend MVO2 as well as CI, with goal >65 and >2, respectively while on dobutamine drip
Continue amio gtt
Left groin triple-lumen in place, DC per CT surgery
Cordis in place
Monitor chest tube output, possible chest tube removal later today
Monitor hemoglobin
Monitor platelet count and coags
Transfuse blood products per CT surgery protocol
Follow-up blood sugars
Negative fluid status noted
Nephrology following
Remains on Bumex drip
Gram-negative bacilli per endotracheal specimen 03/12, Legionella and streptococcal antigen negative negative
Currently on cefepime. Vancomycin discontinued
Remains afebrile, white count elevated
Follow cultures
Aspiration precautions
Head of bed elevated
DVT prophylaxis: Eliquis currently on hold (last dose morning of 03/07/2025), possibly resume soon per CT surgery
Early nutrition when able
Early mobilization
Patient is critically ill; continue management in CVICU - Commercial Intelligence Manager service will continue to follow along.
Critical care statement: A total of 31 minutes of critical care time was provided for this patient today. This includes management of ventilator, spontaneous breathing trial, arterial blood gases, pressors, of unstable vital signs, evaluation of the
patient at bedside, reviewing the patient's pertinent medical records including radiographs, microbiology, laboratory evaluations, and discussion with primary team and critical care nursing.
Data:
CTA chest/abdomen/pelvis with/without contrast 03/07/2025:
1.There is an aortic dissection extending throughout the aorta beginning at the root and extending to the aortic bifurcation consistent with Warwick type A dissection.The aortic branch arteries appear to be supplied off the true lumen. There is
associated moderate narrowing of the descending thoracic aorta and proximal abdominal aorta. Additionally there is narrowing at the proximal right renal artery with associated asymmetrically decreased perfusion of the right kidney.
2. Small bilateral pleural effusions with adjacent atelectasis.
3. Postoperative changes along the sternum with a possible small hematoma.
CXR 03/09/2025:
Stable position of the endotracheal tube, [place]-Fabio catheter, Impella device, and bilateral chest tubes.
A sternal retractor again projects over the chest.
No focal consolidation, pleural effusion, or pneumothorax. Sternotomy wires and cardiac valve prostheses. Stable cardiomediastinal silhouette. Chronic degenerative changes of the spine.
Subjective Dataa
Subjective Data
Date of Service:
Date of Service: March 16, 2025
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
Subjective:
Respiratory status remains tenuous with intermittent desaturation per discussion with CT surgery. Unfortunately patient with extremely poor cough. He does appear to be more alert today, more conversant. Remains rhonchorous
Objective Data
Data Reviewed
Vital Signs / I&O / Oxygen:
Vital Signs
Temp Pulse Resp BP Pulse Ox
99.1 F 87 18 136/93 97
03/16/25 07:55 03/16/25 07:33 03/16/25 07:55 03/16/25 06:03 03/16/25 07:55
Intake and Output
03/15/25 03/16/25 03/17/25
06:59 06:59 06:59
Intake Total 1443.1 / 1492.8 1350.8 / 1350.8 48.2 / 48.2
Output Total 4855 / 5075 3000 / 3000 375 / 375
Balance -3411.9 / -3582.2 -1649.2 / -1649.2 -326.8 / -326.8
SaO2 [CPAP/PSV] 97
SaO2 [A/C] 95
SaO2 [SIMV] 98
SaO2 97
Nasal Cannula flow liters per 40
minute
Physical Exam
General: Comfortable (Follows commands, generally weak), Other (On mid flow) and Other (Right IJ, A-line)
HEENT: Normocephalic and Anicteric
Cardiovascular: S1-S2, Regular Rhythm, Murmur (n), Rub (n) and Peripheral Edema (1+)
Respiratory: Wheeze (n), Crackles (n), Rhonchi (few with cough), Non-Labored Respirations, Stridor (n), Chest Tube (No airleak), Other (Anterior chest dressing) and Other (Decreased breath sounds at base)
GI: Soft, Non Distended and Non Tender
Neurology: Awake, Alert, No Motor Deficits (Profoundly weak, moves all extremities) and Other (Following commands, moving extremities. He is intermittently confused)
Skin: Cyanosis (n), Jaundice (n) and Bruising (Few scattered)
Labs/Micro/Reports
Lab Data
03/16/25 05:13
03/16/25 06:00
Laboratory Results
03/15/25 03/15/25 03/15/25
11:58 18:28 22:16
APTT 37.3 H 39.8 H
pH 7.45 7.43
pCO2 39 40
pO2 83 199 H
HCO3 27.1 26.5
O2 Delivery Level Hfnc
03/16/25 03/16/25 03/16/25
00:30 05:13 06:00
APTT 39.8 H
pH 7.41 Cancelled
pCO2 43 Cancelled
pO2 148 H Cancelled
HCO3 27.3 Cancelled
O2 Delivery Level Cancelled
Microbiology
03/12/25 11:30 Endotracheal Respiratory Culture - Final
Enterobacter amnigenus BG2 2
03/12/25 11:30 Endotracheal Gram Stain - Final
[2025-03-16] MEDS: ASPIRIN 300 MG RECTAL (07:57)
[2025-03-16] MEDS: PROTONIX IV 40 MG IV (07:57)
[2025-03-16] MEDS: NSS (PRESERVATIVE FREE) 10 ML IV (07:57)
[2025-03-16] MEDS: MIRALAX TUBE (07:57)
--- NOTE | 2025-03-16 08:29 | PTCARENOTE ---
Received pt at 0700 from shift supervisor rn RN; pt [id number] confused and 1:1 at bedside; A-flutter on monitor and VSS; Epicardial A/V wires set to back up VVI 30/10/0.8 and no pacing noted; RIJ Cordis, Right Double lumen PICC, and Left A-line all lines
leveled and zeroed; Amiodarone, Heparin and Bumex infusing see flow sheet for details; Lungs Diminished/Coarse/Rhonchi throughout; CT x4 to -20 wall suction no air leak and no crepitus noted; HighFlo titrated per respiratory; hypoactive bowel
sounds; Buenrostro catheter draining clear yellow urine; Doppler pulses present throughout; +2 generalized edema, +3 Left upper extremity and +3 scrotal edema; all surgical sites C/D/I; see flow sheet for details.
[2025-03-16 08:30] LABS: APTT 38.5 Sec (23.4-35.0)
--- NOTE | 2025-03-16 09:08 | PTCARENOTE ---
Respiratory at bedside and nasal trumpet placed into left nostril for deep suction by respiratory.
--- NOTE | 2025-03-16 09:34 | PTCARENOTE ---
Left Radial A-line removed per CTNP order; Speech therapy at bedside keep NPO.
--- NOTE | 2025-03-16 09:58 | PTCARENOTE ---
Mediastinal chest tube x2 removed per CTNP order.
--- NOTE | 2025-03-16 10:44 | W.PN.NEPH.PH ---
Today's Communication / Plan
-
cont bumex gtt
Assessment/Plan
-
Impression:
Acute type A Aortic dissection with involvement of bilateral coronary ostia and circumferentially around the root with operative repair on 03/08/25
Acute kidney injury
Postoperative cardiogenic shock now on inotropic support
History of CABG x 4 mitral valve repair tricuspid valve repair maze and EVI exclusion on 02/16/2025
Status post Impella placement on 03/08/2025
Lactic acidosis 12.4
Vent dependent respiratory failure
NSVT
Ischemic cardiomyopathy with EF of 45 to 50%
Atrial fibrillation
History of hypertension
Plan:
cr slowly improving to 1.9
cont bumex gtt per primary, wt decreasing
mild hypernatremia-may need free water when starts PO
if worsens likely add hypotonic fluids
follow BMP
no emergent HD needs, likely will not need moving forward
BP stable
wean O2 as possible, clear secretion-pulm follows
-
-
Date of Service: March 16, 2025
CC / HPI / ROS
-
Chief Complaint:
aortic dissection
IRON
History of Present Illness:
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
BP stable off pressors
Creatinine better at 19
CRRT was discontinued on a.m. of 03/11/2025, CVC removed.
hgb stable low 8.5
diuresing well with bumex gtt, wt decreasing
critically ill in CVICU on mid flow O2
WBC up at 21.5
Review of Systems:
non oliguric
no CP, c/o sob sometimes
Chest tubes 1 remains, other removed today
Labs
-
Labs:
WBC 21.5 10^3/uL (4.8-10.8) H 03/16/25 05:13
RBC 2.78 10^6/uL (4.70-6.10) L 03/16/25 05:13
Hgb 8.5 g/dL (13.0-18.0) L 03/16/25 05:13
Hct 26.8 % (39.0-52.0) L 03/16/25 05:13
Plt Count 202 10^3/uL (130-400) 03/16/25 05:13
Sodium Cancelled 03/16/25 06:00
Potassium Cancelled 03/16/25 06:00
Chloride Cancelled 03/16/25 06:00
Carbon Dioxide Cancelled 03/16/25 06:00
BUN Cancelled 03/16/25 06:00
Creatinine Cancelled 03/16/25 06:00
eGFR Cancelled 03/16/25 06:00
Glucose Cancelled 03/16/25 06:00
Calcium Cancelled 03/16/25 06:00
Phosphorus Cancelled 03/12/25 20:00
Azj-H-Fpboyfhebxa Pept 2970 pg/ml 03/04/25 15:44
Albumin Cancelled 03/16/25 06:00
Physical Exam
-
Vital Signs:
Vital Signs
Temp Pulse Resp BP Pulse Ox
99.4 F 87 17 143/90 99
03/16/25 10:00 03/16/25 10:00 03/16/25 10:00 03/16/25 09:24 03/16/25 10:20
Cardiovascular:: Regular rate and rhythm
Respiratory:: Bilateral: Coarse and Bilateral: Rhonchi
Lung Excursion:: Abnormal
Abdomen:: Nontender and Soft
Bowel Sounds:: Decreased
Extremity Edema:: +3: Bilateral:
Buenrostro Catheter: Yes
--- NOTE | 2025-03-16 12:08 | W.PN.CD ---
Today's Communication / Plan
-
Continue diuresis with bumetanide gtt.
Transition metoprolol to succinate 12.5 mg daily.
Incentive spirometry.
PT/OT/Ambulate.
Impression / Plan
-
Impression/Plan: 74 yo male with PMH of ICM EF 35-40%, chronic HFrEF, persistent A fib on eliquis, HTN, CAD s/p CABG x 4, MV repair, TV repair, MAZE, and EVI exclusion with Dr. Sullivan (02/16/25); admitted on 03/04/2025 with acute on chronic HFrEF,
subsequently found to have severe AR due to Moses type A aortic dissection.
#Aortic dissection
-Acute, [place] type A w/ involvement of b/l Coronary ostia and circumferentially around the root causing severe AI, distally to the Aorto-iliac bifurcation complicated by shock.
-s/p #27 valved conduit and hemiarch replacement, ligation of L and R coronary ostia as they were dissected; bypass grafting to an acute marginal and relocation of previous vein grafts onto acute marginal vein graft..
-Loss of Impella pulsatility lead to TTE guided repositioning. Patient was re-opened at the bedside, revealing clot around the right ventricle and SVG that appeared to compress both. The clot was evacuated (05/08/2025).
-Arterial bleeding was observed from the IAN bed, which was clipped and a sternal wire site which was double ligated with good hemostasis (03/08/2025).
-CI dwindled overnight, improved to 2.06. INSURANCE CLAIMS ANALYST = 0.84 [place]. Delphine = 0.8.
-The patient has had several episodes of hypotension, though to be due to compression of the SVG. The patient was taken to OR for placement of a ringed graft to prevent compression (03/09/2025).
-Patient returned to the OR for ligation of the IAN (persistent bleeding) and re-bypass to address the angulation of the original SVG to Diag, which is thought to be leading to his multiple hypotensive episodes (03/09/2025).
-s/p chest closure and Impella removal.
-Encourage incentive spirometry.
-PT/OT/ambulation.
#HFrEF/ICMO
-Acute on chronic in the setting of Type A dissection with moderate/severe AI.
-Weight falling with diuresis. Na now 147 suggestive of free water deficit.
-Continue bumetanide gtt.
-GDMT when hemodynamics will tolerate:
-Diuretics: Bumetanide gtt.
-Beta frantz: Convert to metoprolol succinate 12.5 mg daily.
-ACEI/ARB/ARNi: On hold due to BP/IRON.
-MRA: On hold due to BP/IRON.
-SGLT2i: On hold due to IRON.
-ICD: Not currently indicated.
#Heme
-Anemia, stabilized.
-Thrombocytopenia, resolved.
#CAD
-Chronic, stable.
-S/P CABG x 4 (MAGANA to LAD, SVG to OM1 to LPL, SVG to Diag).
-During operation for Ao dissection, the SVG graft was anastomosed to the SVG to diagonal graft and the LMCA/RCA were ligated to prevent further propagation of the dissection plane.
-The current anatomy is MAGANA to LAD, SVG from Ao graft to SVG to diagonal, sequential SVG Y-graft from diagonal graft to OM1 to LPL.
#Mitral regurgitation
-Chronic, stable
-S/P MV repair (closure of cleft between P2 and P3, free edge remodeling between P3 and commissure, placement of single Westbrook-Gaston suture from anterolateral papillary muscle head to P2 and P3, #32 Taylor Physio Flex band annuloplasty, SN [id number])
with Dr. Sullivan, 02/16/2025.
#Tricuspid regurgitation
-Chronic, stable.
-S/P TV repair (Simple tricuspid valve repair with #34 Medtronic Triad band annuloplasty, SN [id number]) with Dr. Sullivan, 02/16/2025.
#Atrial fibrillation
-Persistent.
-Currently in NSR.
-Rate/rhythm control with amiodarone, s/p MAZE with Dr. Sullivan, 02/16/2025.
-CHADS2-Vasc = 5 (CHF, HTN, Age x2, vascular disease).
-Anti-thrombotic therapy titrated based on coagulopathy, S/P LAAE (#40 AtriClip, SN [id number]) with Dr. Sullivan, 02/16/2025.
#IRON
-Cr 2.0.
-Nephrology following.
#Acute liver injury
-Severe, multifactorial.
-LFTs normalized .
Critical Care Time = 38 minutes.
Subjective/Interval History:
PICC placed yesterday.
Weight is down 1.9 kg from yesterday, still ~ 6 kg above baseline weight.
SaO2 98% on 10 L/min midflow, FiO2 = 40%.
Family reports some delerium.
DATA:
TTE, 03/04/2025:
SUMMARY
1. Moderately reduced LV systolic function. Ejection fraction is 35-40%. Global hypokinesis.
2. S/p mitral valve repair with peak/mean gradients of 15/5 mmHg. Trace mitral valve regurgitation.
3. Moderate/severe aortic regurgitation. PHT approx 250 msec.
4. S/p tricuspid valve repair with mean gradient of 2 mmHg. Mild tricuspid regurgitation. Estimated PASP 38 mmHg, assuming RAP 8 mmHg. Mildly elevated PASP.
5. Compared to 02/19/25: LVEF is stable in 35-40% range, mitral valve and tricuspid valve repairs are stable; aortic regurgitation has progressed from mild/moderate to moderate/severe.
SAJAN, 03/07/2025:
SUMMARY
1. There is a Moses type A [place] class I aortic dissection present.
2. Trileaflet aortic valve. Severe aortic regurgitation due to prolapse of the left vs non coronary cusp and aortic dissection.
3. Low normal ventricular systolic function. LVEF 45-50%.
4. S/p tricuspid valve repair. Trace residual tricuspid regurgitation.
5. S/p mitral valve repair. Trace residual mitral regurgitation.
6. Dr. Sullivan (CT surgery) notified of findings at time of study.
CT surgery, 03/07/2025:
Procedure(s) Performed:
1. Ultrasound-guided access using Seldinger technique 2 the right common femoral artery and vein with percutaneous access using a 25 [place] femoral venous cannula
2. Redo sternotomy with extensive adhesiolysis (Modifier 22 for additional dissection time of 1 hour)
3. Direct aortic cannulation using ultrasound and Seldinger technique with a SAJAN guidance verifying true lumen access
4. Moderate hypothermic circulatory arrest with antegrade cerebral perfusion
5. Hemiarch ascending aortic replacement
6. Aortic root replacement using a 27 mm valved conduit
7. Ligation of left and right coronary ostia as they were dissected coronary bypass grafting to an acute marginal
8. Relocation of previous vein grafts onto this acute marginal vein graft
9. Placement of temporary atrial ventricular pacing wires
10. Transesophageal echocardiography
11. Temporary chest packing, open chest.
Impella Placement, 03/08/2025:
Procedure(s) Performed:
1. The temporary dressing over top of the open chest was removed
2. Placement of atrial pacing wires
3. Anastomosis of a 10 mm straight tube graft off of the ascending aortic graft, graft to graft anastomosis
4. Graft tunneled to the left supra clavicular region between the strap muscles
5. Placement of a 5.5 direct aortic Impella LVAD
6. Chest closure in usual fashion
TTE, 03/08/2025:
SUMMARY
1. TDS.
2. In limited views, left ventricle appears normal sized with severely reduced systolic function. Left ventricle ejection fraction is 25-30% by visual estimation. Global hypokinesis. S/p Impella 5.5 insertion which appears to be appropriately
placed.
3. In limited views right ventricle appears normal sized with mildly reduced systolic function. Right ventricle does appear to expand in diastole.
4. Limited valvular interrogation.
5. Compared to SAJAN earlier in day, overall, no significant change.
Bedside Rexploration, 03/08/2025:
Procedure: Emergency bedside reopening of chest and the loculation of clot ligation of IAN which was the bleeding source, repacking with 1 vaginal pack and Kerlix and replacement of new chest tubes
CT surgery re-exploration, 03/09/2025 (morning):
PROCEDURES:
1. Mediastinal reexploration/irrigation and removal of packing.
2. Repositioning of proximal course of greater saphenous vein graft
with several 6-0 Prolene sutures (placed/subsequently removed).
3. Placement of 6 mm ringed PTFE graft around proximal segment of
greater saphenous vein graft .
4. Replacement of new mediastinal packing (1 vaginal pack and
partial roll of Kerlix; syringe based sternal separation).
5. Reexploration with replacement of new open chest dressing.
CT surgery re-exploration, 03/09/2025 (afternoon):
Procedure(s) Performed:
1. Reopening of temporary chest coverage.
2. Ligation of IAN.
3. Coronary artery bypass grafting x 1 (Aortic Graft to RSVG to RSVG - T-graft).
4. Open vein harvest of the left thigh.
5. Transesophageal echocardiography.
6. Repacking of chest and placement of temporary dressing.
Physical Exam
Vital Signs/Labs
Vital Signs
Temp Pulse Resp BP Pulse Ox
37.4 C 89 20 132/84 99
03/16/25 10:00 03/16/25 11:30 03/16/25 11:30 03/16/25 11:21 03/16/25 11:30
03/15/25 03/16/25 03/17/25
11:59 11:59 11:59
Actual Weight 97.9 kg 96 kg
03/16/25 05:13
03/16/25 06:00
PT 18.5 Sec (11.4-14.6) H 03/14/25 04:33
INR 1.52 03/14/25 04:33
APTT 38.5 Sec (23.4-35.0) H 03/16/25 07:46
Magnesium 2.2 mg/dl (1.6-2.3) 03/16/25 05:13
Magnesium Cancelled 03/16/25 05:13
Triglycerides 111 mg/dl (10-149) 03/13/25 04:21
03/04/25
15:44
Oko-M-Kwphfckaqvc Pept 2970
Physical Exam
Constitutional: No acute distress and Comfortable
EENT: Anicteric and Moist mucous membranes
Cardiovascular: Rhythm & rate is regular, Pedal edema present, JVD present, S1S2 is normal and Murmur/rub/gallop absent
Respiratory: Respiratory effort normal, Lungs clear to auscul., Wheeze Absent, Crackles Absent and Rhonchi Absent
GI: Soft, Distention absent, Flat, Non tender and Normal bowel sounds
Neuro/Psych: AO x 3
Data Reviewed
-
Date of Service: March 16, 2025
Medical Decision Making: Reviewed Test Results, Independent Historian Assessment and Test Interpretation
EKG: Tracing Personally Visualized and interpreted and Report Reviewed by me
Echo: Tracing Personally Visualized and interpreted and Report Reviewed by me
X-Ray/CT/US/MRI/NUC/PET: Image Personally Visualized and interpreted and Report Reviewed by me
Medical Tests (PFT, Pathology etc): Report Reviewed by me
Labs: Labs Reviewed by me
Old Records: Reviewed
[2025-03-16 12:10] LABS: Glucose - Point of Care 143 mg/dl (70-99)
--- NOTE | 2025-03-16 12:33 | W.PN.ID1 ---
Date of Service
Date of Service: March 16, 2025
Today's Communication
Continue cefepime.
Assessment / Plan
# Enterobacter pneumonia
- O2 requirement decreasing
- Continue cefepime 1g IV q6h (d6 of 10)
- Continue Mobilize secretions.
- Aspiration precaution.
# Leukocytosis
- trending up
- no diarrhea; No BM since admission
- afebrile
- Neg DVT
- DC lines/tubes when able
- Trend WBC.
# Type A aortic dissection
- s/p repair, OR 03/07, 03/08, 03/09, 03/11
# s/p cardiogenic shock
# IRON improving
#Conditions present on admission
Hypertension
Dyslipidemia
Atrial fibrillation s/p MAZE, EVI exclusion 02/16/25
CAD status post CABG x 4
Mitral valve repair 02/16/25
Tricuspid valve repair 02/16/25
HFrEF
Hypothyroidism
Chief Complaint
-: Pneumonia
Subjective / Review of Systems
Cough stable.
Vital Signs / Physical Exam
Vital Signs
Vital Signs
Temp Pulse Resp BP Pulse Ox
99.5 F 87 20 127/81 100
03/16/25 12:00 03/16/25 12:00 03/16/25 12:00 03/16/25 12:00 03/16/25 12:00
Physical Exam
Constitutional: Chronically Ill
Eyes: No Conjunctival Hemorrhage
Cardiovascular: Regular Rate and S1/S2
Pulmonary: Non Labored and Other (decreased BS at bases)
Gastrointestinal: Soft, Non Tender, Non Distended and Normal Bowel Sounds
Extremities: Edema (LUE, BLE)
Neurological: Awake and Alert
Lines: CVP (RIJ)
Objective Data
Lab Data
Lab Results
03/16/25 05:13
03/16/25 06:00
PT 18.5 Sec (11.4-14.6) H 03/14/25 04:33
INR 1.52 03/14/25 04:33
APTT 38.5 Sec (23.4-35.0) H 03/16/25 07:46
Estimated Creat Clear Cancelled 03/16/25 06:00
Lactic Acid 1.6 mmol/L (0.7-2.0) 03/15/25 18:28
Total Bilirubin Cancelled 03/16/25 06:00
AST Cancelled 03/16/25 06:00
ALT Cancelled 03/16/25 06:00
Alkaline Phosphatase Cancelled 03/16/25 06:00
Most recent labs reviewed.
Micro Results:
03/12/25 11:30 Respiratory Culture - Final
Endotracheal Enterobacter amnigenus BG2 2
Gram Stain - Final
03/12/25 11:30 Legionella Urinary Antigen - Final
Urine Negative for Legionella pneumophila Serogroup 1 antigen.
A negative result does not rule out the possiblity of
Legionella infection due to other serogroups or species of
Legionella. Clinical correlation is recommended.
Streptococcus pneumoniae Antigen (M - Final
Negative for Streptococcus pneumoniae antigen.
A negative result does not exclude infection with
Streptococcus pneumoniae. Clinical correlation is
recommended.
03/11/25 15:48 Nasal Screen MRSA (PCR) - Final
Nose MRSA not detected - performed by PCR methodology.
03/15/25 Peripheral Vasc US: No evidence of deep venous thrombosis of the left upper extremity.
03/15/25 CXR: Bibasilar opacification most likely representing subsegmental atelectasis and small bilateral pleural effusions.
03/07/25 CTA chest/a/p: There is an aortic dissection extending throughout the aorta beginning at the root and extending to the aortic bifurcation consistent with [place] type A dissection.The aortic branch arteries appear to be supplied off the
true lumen. There is associated moderate narrowing of the descending thoracic aorta and proximal abdominal aorta. Additionally there is narrowing at the proximal right renal artery with associated asymmetrically decreased perfusion of the right
kidney.
--- NOTE | 2025-03-16 13:10 | PTCARENOTE ---
Dobhoff placed by CTNP at bedside; 75cm marking at right nare.
--- NOTE | 2025-03-16 14:17 | W.PN.UPDATE ---
Update Note
Progress Note Update
Small bore feeding tube placed without issue. CXR was ordered to confirm placement. CXR showed tip is in proximal stomach and feeding tube was advance another 10cm. It is not taped at 70cm in the right nostril and wire was removed. TF ordered. OK to
use.
--- NOTE | 2025-03-16 15:36 | PTCARENOTE ---
NSR on monitor and VSS; assessment unchanged; pt resting comfortably in chair with 1:1 and family at bedside; tube feedings started per CTNP order; lab sent.
[2025-03-16 15:38] LABS: APTT 36.1 Sec (23.4-35.0); Blood Urea Nitrogen 80 mg/dl (9-20); Calcium 8.4 mg/dl (8.4-10.2); Carbon Dioxide 31 mmol/L (22-30); Chloride 111 mmol/L (98-107); Glucose 136 mg/dl (70-99); Magnesium 2.4 mg/dl (1.6-2.3); Potassium 3.4 mmol/L (3.5-5.1); Sodium 146 mmol/L (135-145)
[2025-03-16 15:48] LABS: Estimated Creatinine Clearance 34 ml/min; eGFR 34.16
[2025-03-16] MEDS: KLOR-CON 40 MEQ PO (16:03)
[2025-03-16] MEDS: PACERONE 200 MG TUBE ×2 (16:04→22:30)
[2025-03-16] MEDS: LEVOTHROID 112.5 MCG IV (16:47)
[2025-03-16] MEDS: LIPITOR 40 MG TUBE (16:47)
[2025-03-16] MEDS: NSS 500 IV (16:54)
[2025-03-16 16:55] LABS: Glucose - Point of Care 145 mg/dl (70-99)
--- NOTE | 2025-03-16 17:20 | PTCARENOTE ---
Waiting on Antithrombin 3 test for results before titrating Heparin; lab called and Updated CTNP on Antithrombin 3 test, per lab results will not occur for at least 2 days; Heparin drip increased at this time to 800 units; NSR on monitor and VSS.
[2025-03-16] MEDS: LOPRESSOR 37.5 MG TUBE (19:54)
[2025-03-16] MEDS: SENOKOT 8.6 MG TUBE (19:54)
--- NOTE | 2025-03-16 20:00 | PTCARENOTE ---
assumed care of patient @ 1900. recieved pt laying in bed -
Neuro- Alert to self only. can state full name and , but thinks he is at home 1:1 sitter present in room d/t patient pulling at lines. emotional support and redirection provided. Moves all extremeties appropriately, pupils equal round and
reactive
CV- A flutter on monitor HR 80s-90s. +2 anasarca, +3 left upper extremity pitting edema. . V wire present, hooked to box, turned off.
Lungs - Diminished and coarse with scattered rhonci thoghout. pt coughing up FEES study green liquid. Mouth care provided. Currently on 6L MF satting mid 90s. 2 chest tubes to wall suction no air leak, tidaling or crepitus noted.
GI- Belly soft, hypoactive. Currently NPO. No BM yet.
- adams draining good amount of clear yellow urine.
Skin- Sternum dressing with scant old drainage, Impella site with dressing CDI , CT dressing CDI, R/L groin dressings are CDI no exessive weeping noted, R leg old SVG sites CDI KRYSTYNA, L thigh and leg SVG sites with aquacel, STG 1 on sacrum covered w
foam, scattered skin tears on flank/back. q2 hr repositioning provided.
Lines- R IJ cordis , R arm PICC.
Meds- Heparin at 800, bumex at 1.5, amio at 0.5. Will switch bumex to 0.5 overnight per CTNP Tere
--- NOTE | 2025-03-16 20:46 | PTCARENOTE ---
nasal trumpet suctioned by RT with no secretions. trumpet removed by RT
--- NOTE | 2025-03-16 22:00 | PTCARENOTE ---
pt with 9 beat run of VT- Amio reordered by CTPA, BMP sent . no other change in assessment .
[2025-03-16] MEDS: ROBITUSSIN 200 MG TUBE (22:30)
[2025-03-16 23:16] LABS: Blood Urea Nitrogen 83 mg/dl (9-20); Calcium 8.1 mg/dl (8.4-10.2); Carbon Dioxide 32 mmol/L (22-30); Chloride 114 mmol/L (98-107); Estimated Creatinine Clearance 32 ml/min; Glucose 131 mg/dl (70-99); Magnesium 2.3 mg/dl (1.6-2.3); Potassium 3.6 mmol/L (3.5-5.1); Sodium 151 mmol/L (135-145); eGFR 32.22
[2025-03-17] VITALS (29 sets, daily range): BP systolic 101–136; BP diastolic 61–86; BMI 28.8
[2025-03-17] MEDS: BUMEX 100 IV (00:19)
--- NOTE | 2025-03-17 01:00 | PTCARENOTE ---
sitter no longer in room - pt fidgeting and picking at lines, mitts ordered and applied.
[2025-03-17] MEDS: VENTOLIN NEBULES 2.5 MG INH ×6 (01:09→19:15)
[2025-03-17] MEDS: KCL 50 IV ×5 (01:29→16:46)
[2025-03-17 01:42] LABS: APTT 51.9 Sec (23.4-35.0)
--- NOTE | 2025-03-17 01:50 | PTCARENOTE ---
sodium 151- flush increased to 50 mls/hr per CTPA order
[2025-03-17] MEDS: MAXIPIME 1000 MG IV (04:29)
[2025-03-17] MEDS: STERILE WATER FOR INJECTION 10 ML IV (04:30)
[2025-03-17] MEDS: SYNTHROID 150 MCG TUBE (04:30)
--- NOTE | 2025-03-17 04:30 | PTCARENOTE ---
labs sent, pt calm appears sleeping. no acute change in assessment .
[2025-03-17 04:51] LABS: ALT (SGPT) 23 U/L (0-50); AST (SGOT) 40 U/L (17-59); Albumin 2.6 g/dl (3.5-5.0); Alkaline Phosphatase 177 U/L (38-126); Blood Urea Nitrogen 81 mg/dl (9-20); Calcium 8.0 mg/dl (8.4-10.2); Carbon Dioxide 33 mmol/L (22-30); Chloride 112 mmol/L (98-107); Estimated Creatinine Clearance 31 ml/min; Glucose 137 mg/dl (70-99); Magnesium 2.4 mg/dl (1.6-2.3); Potassium 3.5 mmol/L (3.5-5.1); Sodium 147 mmol/L (135-145); Total Protein 5.0 g/dl (6.3-8.2); eGFR 30.47
[2025-03-17] MEDS: HEPARIN 25000 UNITS/250 ML IV (05:05)
[2025-03-17] MEDS: NOVOLOG FLEXPEN-LOW RESISTANCE 1 UNITS SC (06:00)
[2025-03-17 06:15] LABS: Hematocrit 27.8 % (39.0-52.0); Hemoglobin 8.2 g/dL (13.0-18.0); Mean Corp Hgb Conc. 29.5 g/dL (33.0-37.0); Mean Corpuscular Volume 103.3 fL (80.0-94.0); Platelet Count 237 10^3/uL (130-400); Red Cell Dist. Width 20.2 % (11.5-14.5)
[2025-03-17 06:18] LABS: Glucose - Point of Care 157 mg/dl (70-99)
[2025-03-17 07:32] LABS: Nucleated Red Blood Cells % 0.6 % (-)
[2025-03-17 07:55] LABS: APTT 50.4 Sec (23.4-35.0)
[2025-03-17] MEDS: MUCOMYST 20% 4 ML INH ×2 (08:04→19:15)
--- NOTE | 2025-03-17 08:05 | W.PN.INTV ---
Today's Communication / Plan
Recommendations
Continue with airway clearance measures
Chest percussion
Has been weaned down to 2 L
Out of bed to chair as able
Aspiration precautions, tolerating tube feeds
Assessment
-
Assessment: 74-year-old male with a past medical history of multivessel CAD s/p CABG, history of severe MR s/p radical mitral valve repair, severe tricuspid valve insufficiency s/p tricuspid valve repair, chronic HFmrEF, hyperlipidemia,
hypertension, paroxysmal A-fib on Eliquis s/p open left atrial maze + left atrial appendage exclusion, hypothyroidism and history of colon adenoma who presents with shortness of breath, poor appetite and ankle swelling. Patient recently had a
cardiothoracic surgery on 02/16 after proceeding left + right heart catheterization on 02/04/2025 showed triple-vessel CAD with mildly elevated biventricular filling pressures. Patient was found to have acute postoperative blood loss anemia,
postoperative coagulopathy and he improved and was able to be discharged home on 02/22/2025. He is now returning with shortness of breath with exertion, lower extremity edema and imaging consistent with acute decompensated heart failure. IV Lasix
started. Echo performed on 03/04/2025 showed reduced EF now at 35-40%, global hypokinesis, with worsening aortic regurgitation from mild/moderate to moderate/severe.He was also started on metoprolol due to NSVT. Given the worsening aortic
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 CT surgery notified and a stat CT
angio chest/abdomen/pelvis was performed confirming an aortic dissection extending throughout the aorta beginning at the root and extending to the aortic bifurcation. There also were small bilateral pleural effusions with other postoperative
changes along the sternum with a possible small hematoma. Patient brought to the OR and underwent a redo sternotomy with extensive adhesiolysis, hemiarch ascending aortic replacement, aortic root replacement, ligation of left and right coronary
ostia as they were dissected, and previous vein grafts were relocated onto the acute marginal vein graft, and his chest was left open. Patient transferred to the CVICU postoperatively, and buildings and grounds coordinator services consulted for additional
management/recommendations.
Patient went back to [facility] on 03/11 for chest closure and bronchoscopy
On 03/12, he went to [facility] for repeat bronchoscopy with Impella removal on 03/12 -respiratory sample sent for cultures (growing GNR � follow up species)
Extubated 03/14
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
(02/16/2025), chronic HFmrEF, hyperlipidemia, hypertension, paroxysmal A-fib s/p open left atrial maze + EVI�exclusion (02/16/2025) on Eliquis, mild aortic valve insufficiency secondary to leaflet prolapse, hypothyroidism, history of colon adenoma
Impression:
#Type A aortic dissection with resultant severe aortic regurgitation s/p redo sternotomy with extensive adhesiolysis, moderate hypothermic circulatory arrest, hemiarch ascending aortic replacement, aortic root replacement, ligation of left and right
coronary ostia as they were dissected followed by relocation of previous vein grafts onto acute marginal vein graft, and chest left open (POD #6)
#Cardiogenic shock now on multiple vasopressors and placement of a 5.5 direct aortic Impella LVAD with subsequent chest closure in usual fashion (POD #5)
#Cardiac tamponade with cardiovascular collapse s/p emergent bedside reopening of chest with ligation of IAN with multiple clot evacuation and repacking with vaginal pack + Kerlix and replacement chest tubes (POD #5)
#Mediastinal reexploration/irrigation and removal packing with repositioning of proximal course of GSV graft with placement of 6 mm ringed PTFE graft around proximal segment of GSV graft with replacement of new mediastinal packing and new open chest
dressing placed (POD#5)
#Kinking of single vein graft s/p ligation of IAN + CABG x 1 with aortic Graft to RSVG to RSVG - T-graft (POD #4)
#Ventilator dependent respiratory failure with acute hypoxia
#IRON with proximal right renal artery narrowing with decreased right kidney perfusion (per CTA chest/abdomen/pelvis from 03/07/2025) s/p CRRT (off CRRT since 03/11/2025)
#Postoperative coagulopathy
#Lactic acidosis � resolved since 03/10/2025
#Acute HFrEF exacerbation (present on admission)
#Shock liver with hyperbilirubinemia � improved
#Chronic anemia (baseline 9.5-11 g/dL)
#Multivessel CAD s/p CABG x 4, severe mitral valve insufficiency s/p radical mitral valve repair, severe tricuspid valve insufficiency (functional) s/p simple tricuspid valve repair (all on 02/16/2025)
#Paroxysmal A-fib s/p open left atrial maze + EVI�exclusion (02/16/2025) on Eliquis
Plan/recommendations:
Respiratory status tenuous but improved
Off dobutamine
Remains on Bumex drip, amiodarone, heparin
Tolerating tube feeds
98% on high flow oxygen, has been weaned down to 2 L
Responded well to trumpet and suction throughout the day 03/16
Moving forward
Continue with airway clearance measures
Chest percussion, encouraged cough
Increased chest percussion to every 6 hours
NAC nebs
Nasal trumpet discontinued 03/16
Out of bed to chair as able
Will consider bronchoscopy at bedside as indicated however if not intubated will need to do with minimal sedation given high risk for reintubation
no indication at this time
Remains on Bumex
Negative fluid status noted
Chest tube per surgery
Monitor hemoglobin
Monitor platelet count and coags
Transfuse blood products per CT surgery protocol
Follow-up blood sugars
Negative fluid status noted
Nephrology following
Remains on Bumex drip
Gram-negative bacilli per endotracheal specimen 03/12, Legionella and streptococcal antigen negative negative
Currently on cefepime. Vancomycin discontinued
Remains afebrile, white count elevated
Follow cultures
Aspiration precautions
Head of bed elevated
DVT prophylaxis: Eliquis currently on hold (last dose morning of 03/07/2025), possibly resume soon per CT surgery
Early nutrition when able
Early mobilization
Patient transferred to telemetry
We will continue to follow
Data:
CTA chest/abdomen/pelvis with/without contrast 03/07/2025:
1.There is an aortic dissection extending throughout the aorta beginning at the root and extending to the aortic bifurcation consistent with [place] type A dissection.The aortic branch arteries appear to be supplied off the true lumen. There is
associated moderate narrowing of the descending thoracic aorta and proximal abdominal aorta. Additionally there is narrowing at the proximal right renal artery with associated asymmetrically decreased perfusion of the right kidney.
2. Small bilateral pleural effusions with adjacent atelectasis.
3. Postoperative changes along the sternum with a possible small hematoma.
CXR 03/09/2025:
Stable position of the endotracheal tube, [place]-Fabio catheter, Impella device, and bilateral chest tubes.
A sternal retractor again projects over the chest.
No focal consolidation, pleural effusion, or pneumothorax. Sternotomy wires and cardiac valve prostheses. Stable cardiomediastinal silhouette. Chronic degenerative changes of the spine.
Subjective Dataa
Subjective Data
Date of Service:
Date of Service: March 17, 2025
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
Subjective:
Patient continues to tolerate airway clearance measures. He is more conversant but still occasionally confused. Profoundly weak and deconditioned. Cough seems to be mildly stronger
Objective Data
Data Reviewed
Vital Signs / I&O / Oxygen:
Vital Signs
Temp Pulse Resp BP Pulse Ox
98.9 F 89 15 120/78 99
03/17/25 07:00 03/17/25 07:10 03/17/25 07:10 03/17/25 07:00 03/17/25 07:10
Intake and Output
03/16/25 03/17/25 03/18/25
06:59 06:59 06:59
Intake Total 1350.8 / 1350.8 1724.6 / 1724.6
Output Total 3000 / 3000 3850 / 3850
Balance -1649.2 / -1649.2 -2125.4 / -2125.4
SaO2 [CPAP/PSV] 97
SaO2 [A/C] 95
SaO2 [SIMV] 98
SaO2 99
Nasal Cannula flow liters per 4
minute
Physical Exam
General: Comfortable (Follows commands, generally weak), Other (2 L) and Other (Upper extremity PICC line, A-line, chest tube)
HEENT: Normocephalic and Anicteric
Cardiovascular: S1-S2, Regular Rhythm, Murmur (n), Rub (n) and Peripheral Edema (1+)
Respiratory: Wheeze (n), Crackles (n), Rhonchi (few with cough), Non-Labored Respirations, Stridor (n), Chest Tube (No airleak), Other (Anterior chest dressing) and Other (Decreased breath sounds at base)
GI: Soft, Non Distended and Non Tender
Neurology: Awake, Alert, No Motor Deficits (Profoundly weak, moves all extremities) and Other (Following commands, moving extremities. He is intermittently confused)
Skin: Cyanosis (n), Jaundice (n) and Bruising (Few scattered)
Labs/Micro/Reports
Lab Data
03/17/25 04:15
03/17/25 04:15
Laboratory Results
03/16/25 03/16/25 03/17/25
07:46 15:14 01:25
APTT 38.5 H 36.1 H 51.9 H
03/17/25
07:26
APTT 50.4 H
Microbiology
03/12/25 11:30 Endotracheal Respiratory Culture - Final
Enterobacter amnigenus BG2 2
03/12/25 11:30 Endotracheal Gram Stain - Final
--- NOTE | 2025-03-17 08:15 | PTCARENOTE ---
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
to box and box turned off; lungs diminished and coarse; CT x2 to -20 wall suction no air leak and no crepitus noted; hypoactive bowel sounds; Right nare Dobbhoff patent, tube feedings infusing at 10 mls/hr with 50ml H2O water flush an hour; pt
tolerating feedings without difficulties; Doppler pulses throughout; +2 generalized edema; left upper extremity +3 and +3 scordal edema; all surgical sites C/D/I; see nursing documentation for further details.
[2025-03-17] MEDS: NSS (PRESERVATIVE FREE) 10 ML IV (08:34)
[2025-03-17] MEDS: LOPRESSOR 37.5 MG TUBE ×2 (08:35→20:23)
[2025-03-17] MEDS: DIAMOX 5 MG IV (08:35)
[2025-03-17] MEDS: SENOKOT 8.6 MG TUBE ×2 (08:35→20:24)
[2025-03-17] MEDS: LOW STRENGTH ASPIRIN 81 MG TUBE (08:35)
[2025-03-17] MEDS: PACERONE 200 MG TUBE ×3 (08:35→21:16)
[2025-03-17] MEDS: PROTONIX IV 40 MG IV (08:35)
[2025-03-17] MEDS: ROBITUSSIN 200 MG TUBE ×4 (08:36→21:16)
[2025-03-17] MEDS: MIRALAX 17 GRAMS TUBE (08:36)
[2025-03-17] MEDS: KLOR-CON 40 MEQ PO ×2 (08:36→20:25)
--- NOTE | 2025-03-17 08:49 | W.PN.ID1 ---
Date of Service
Date of Service: March 17, 2025
Today's Communication
Replace cefepime with cipro.
Assessment / Plan
# Encephalopathy
- DC and replace cefepime
# Enterobacter pneumonia
- O2 requirement decreasing
- Replace cefepime (d7 of 10) with cipro 500mg NGT q12 through 03/20
- Aspiration precaution.
# Leukocytosis
- continue to trending up
- no diarrhea, afebrile, Neg DVT
-Check UA rfx ucx, blood cx's x 2
- Agree with DC adams.
- Trend WBC.
# Type A aortic dissection
- s/p repair, OR 03/07, 03/08, 03/09, 03/11
# s/p cardiogenic shock
# IRON
#Conditions present on admission
Hypertension
Dyslipidemia
Atrial fibrillation s/p MAZE, EVI exclusion 02/16/25
CAD status post CABG x 4
Mitral valve repair 02/16/25
Tricuspid valve repair 02/16/25
HFrEF
Hypothyroidism
Chief Complaint
-: Pneumonia
Subjective / Review of Systems
pt in soft mitten restraints.
Vital Signs / Physical Exam
Vital Signs
Vital Signs
Temp Pulse Resp BP Pulse Ox
98.9 F 89 16 124/78 100
03/17/25 07:00 03/17/25 08:20 03/17/25 08:20 03/17/25 08:00 03/17/25 08:20
Physical Exam
Constitutional: Chronically Ill
Eyes: No Conjunctival Hemorrhage
Cardiovascular: Regular Rate and S1/S2
Pulmonary: Non Labored and Other (decreased BS at bases, [address])
Gastrointestinal: Soft, Non Tender, Non Distended and Normal Bowel Sounds
Genito-Urinary: Adams and Clear Urine
Extremities: Edema (LUE, BLE)
Neurological: Other (drowsy)
Lines: CVP (RIJ)
Objective Data
Lab Data
Lab Results
03/17/25 04:15
PT 18.5 Sec (11.4-14.6) H 03/14/25 04:33
INR 1.52 03/14/25 04:33
APTT 50.4 Sec (23.4-35.0) H 03/17/25 07:26
Estimated Creat Clear 31 ml/min 03/17/25 04:15
Lactic Acid 1.6 mmol/L (0.7-2.0) 03/15/25 18:28
Total Bilirubin 2.7 mg/dl (0.2-1.3) H 03/17/25 04:15
AST 40 U/L (17-59) 03/17/25 04:15
ALT 23 U/L (0-50) 03/17/25 04:15
Alkaline Phosphatase 177 U/L (38-126) H 03/17/25 04:15
Most recent labs reviewed.
Micro Results:
03/12/25 11:30 Respiratory Culture - Final
Endotracheal Enterobacter amnigenus BG2 2
Gram Stain - Final
03/12/25 11:30 Legionella Urinary Antigen - Final
Urine Negative for Legionella pneumophila Serogroup 1 antigen.
A negative result does not rule out the possiblity of
Legionella infection due to other serogroups or species of
Legionella. Clinical correlation is recommended.
Streptococcus pneumoniae Antigen (M - Final
Negative for Streptococcus pneumoniae antigen.
A negative result does not exclude infection with
Streptococcus pneumoniae. Clinical correlation is
recommended.
03/11/25 15:48 Nasal Screen MRSA (PCR) - Final
Nose MRSA not detected - performed by PCR methodology.
03/15/25 Peripheral Vasc US: No evidence of deep venous thrombosis of the left upper extremity.
03/15/25 CXR: Bibasilar opacification most likely representing subsegmental atelectasis and small bilateral pleural effusions.
03/07/25 CTA chest/a/p: There is an aortic dissection extending throughout the aorta beginning at the root and extending to the aortic bifurcation consistent with [place] type A dissection.The aortic branch arteries appear to be supplied off the
true lumen. There is associated moderate narrowing of the descending thoracic aorta and proximal abdominal aorta. Additionally there is narrowing at the proximal right renal artery with associated asymmetrically decreased perfusion of the right
kidney.
Care Review
Plan reviewed with: Nurse
--- NOTE | 2025-03-17 08:54 | W.PN.CT ---
Today's Communication / Plan
-
-pod #10
-9 beat WCT overnight (suspect NSVT)- repleted KCL x2
-drips: Bumex 0.5 mg/hr at night and 1.5 at daytime, Amio 0.5, Heparin 800 units/hr (goal PTT 40-60)
-2 pleur CTs 230/900 serosang output
-NG tube placed 03/16- TF started @ 10 cc/hr with 50 cc water fush/hr
-follow Na - 147 today (146-151 on 03/16)
-Monitor h/h stable- 8.2/27.8 today (8.5/26.8 on 03/16)
-Monitor plts 257K-improving
-Monitor cr -2.2 today (1.9-2.1 on 03/16)
-Elevate scrotum in light of scrotal edema
-Alert and oriented x 2, moving all extremities appropriately. A bit impulsive and currently has 1:1 observation
-Extubated on 03/14/25, currently doing well on midflow 6L with pOx 99%
-Pt appears to desats when unable to clear airway. He's deconditioned but appears to be improving daily, able to pull 500 mL on IS last night and coughed up thick secretions
-Currently on Mucomyst. Also on heparin gtt so careful with suctioning
-Wean O2 as tolerated
-Encourage use of IS/Acapella
-Cont. chest PT
-CXR improving
-Sputum from bronchoscopy grew Enterobacter, on Cefepime per ID
-Impella was weaned and d/c'd at bedside by Dr. Sullivan on 03/12/25
-Underwent Bronchoscopy at bedside by Dr. Sullivan on03/12/25, f/u culture. F/U cxr
-Underwent chest washout/closure and bronchoscopy with lavage on 03/11/25
-Remains on empiric Cefepime; Vancomycin has been d/c'd
-
-Tolerating resumption of BB, currently on IV, may need Dobhoff/OG tube to help transition to PO long acting BB given HFrEF
-Holding PO meds while intubated
-Will d/c swan and a-line once off dobutamine
-Maintain adams catheter for accurate I/O's
-Maintain cordis for phlebotomy/medication administration
-Maintain temporary v-wire
-D/C'd right femoral artery groin sheath and right femoral vein puncture site retention suture without incident 03/12/25
-Consider D/C of left groin triple lumen central line
-OOB into chair
-Consider nutritional intake, prealbumin low, 4.7
-Will need PT/OT/SP evaluation. Failed swallow evaluation yesterday 03/15
-Eventual resumption of Eliquis for PAF hx
-Eventual rehab placement
Assessment / Plan
-
Assessment:
-S/p Emergent Redo sternotomy with extensive adhesiolysis (Modifier 22 for additional dissection time of 1 hour)/Hemiarch ascending aortic replacement/ Aortic root replacement using a 27 mm valved conduit/Ligation of left and right coronary ostia as
they were dissected coronary bypass grafting to an acute marginal/Relocation of previous vein grafts onto this acute marginal vein graft/Temporary chest packing, open chest, by Dr. Sullivan, 03/07/25, pod#10
-S/p placement of a 5.5 direct aortic Impella LVAD on 03/08/[address] Sullivan
-Cardic tamponade/ Cardiovascular collapse- s/p Emergency bedside reopening of chest and the evacuation of clot; ligation of IAN, which was the bleeding source; repacking with 1 vaginal pack and Kerlix; replacement of new chest tubes by Dr. Sullivan on
03/08/25
S/p�mediastinal�reexploration/irrigation and placement of�6mm�ringed PTFE graft around the greater�saphaenous�graft. ���S/P�Emergent�Ligation of IAN, Coronary artery bypass grafting x 1 (Aortic Graft to RSVG to RSVG - T-graft)�03/09
-S/P Washout with antibiotic solution inspection of all surgical sites and closure with wires and plates, by Dr. Sullivan, 03/11/25
-S/P Endotracheal bronchoscopy with lavage, by Dr. Carpenter, 03/07/25
-S/p Impella was weaned and d/c'd at bedside by Dr. Sullivan 03/12/25
-S/P Bronchoscopy at bedside by Dr. Sullivan 03/12/25
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
-Worsening of aortic valve insufficiency to severe secondary to dissection
-Acute on chronic congestive heart failure with volume overload secondary to new aortic valve insufficiency
-Hypertension
-Hyperlipidemia
-Hypothyroidism
-AFIB on Eliquis
-Ischemic CM
-Recent cardiac surgery over 20 days ago
-Mitral valve insufficiency status post repair
-Tricuspid insufficiency status post repair
-Coronary artery disease status post CABG
-S/P CABG x 4, MV repair, TV repair, MAZE, and EVI exclusion, Dr. Sullivan 02/16/25, Readmitted for SOB on 03/04
-Acute intraop/postop blood loss/Anemia (transfused 14u PRBC's)
-Acute intraop and postop coagulopathy (Administered 10mg Factor VII, 4 of cryo and 11 FFP ); chest packed and kept opened until 03/11/25
-Acute postop thrombocytopenia (transfused 11 {5pks} plts)
-Acute postop Pulmonary insufficiency
-Acute postop VDRF
-Acute postop Metabolic Acidosis, followed by metabolic alkalosis
-Acute postop Lactic acidosis
-IRON
-Cardiac tamponade 03/08/25
-Acute postop cardiogenic shock
-Acute postop scrotal edema
Discussed patient care with: Nursing and Care Team
Subjective
-
Date of Service: March 17, 2025
Objective Data
-
Lab Results
03/17/25 04:15
PT 18.5 Sec (11.4-14.6) H 03/14/25 04:33
INR 1.52 03/14/25 04:33
APTT 50.4 Sec (23.4-35.0) H 03/17/25 07:26
Vital Signs
Vital Signs
Temp Pulse Resp BP Pulse Ox
98.9 F 89 16 124/78 100
03/17/25 07:00 03/17/25 08:20 03/17/25 08:20 03/17/25 08:00 03/17/25 08:20
CT Intake/Output/Weight
03/16/25 03/17/25 03/17/25
18:59 06:59 18:59
Intake Total 735.2 / 1724.6 989.4 / 1724.6
Output Total 1945 / 3850 1905 / 3850
Balance -1209.8 / -2125.4 -915.6 / -2125.4
SaO2: 100
Physical Exam
-
General: Awake and Oriented (to selft and year (not to place). Intermittent confusion)
Cardiovascular: Regular rate & rhythm, No Murmurs and No Rub
Respiratory: Decreased Breath Sounds
Sternum: Stable
Incision: Clean, Dry and Intact
Extremities: No Edema
Abdomen: soft, nontender, nondistended, + bowel sounds
Data Reviewed
-
Lab Results: Results Reviewed
Medications: Active Meds Reviewed
Chest X-Ray: Report Reviewed and Image Reviewed
ECG: Report Reviewed and Image Reviewed
--- NOTE | 2025-03-17 09:02 | W.PN.CD ---
Today's Communication / Plan
-
Agree with holding diuretics for the moment to allow for treatment of PNA and to allow volume to equilibrate.
Continue metoprolol, plan to transition to succinate.
PT/OT.
Treatment of PNA.
Start B12/Folate. Iron should be well repleted after numerous transfusions.
Impression / Plan
-
Impression/Plan: 74 yo male with PMH of ICM EF 35-40%, chronic HFrEF, persistent A fib on eliquis, HTN, CAD s/p CABG x 4, MV repair, TV repair, MAZE, and EVI exclusion with Dr. Sullivan (02/16/25); admitted on 03/04/2025 with acute on chronic HFrEF,
subsequently found to have severe AR due to Moses type A aortic dissection.
#Aortic dissection
-Acute, Moses type A w/ involvement of b/l Coronary ostia and circumferentially around the root causing severe AI, distally to the Aorto-iliac bifurcation complicated by shock.
-s/p #27 valved conduit and hemiarch replacement, ligation of L and R coronary ostia as they were dissected; bypass grafting to an acute marginal and relocation of previous vein grafts onto acute marginal vein graft..
-Loss of Impella pulsatility lead to TTE guided repositioning. Patient was re-opened at the bedside, revealing clot around the right ventricle and SVG that appeared to compress both. The clot was evacuated (05/08/2025).
-Arterial bleeding was observed from the IAN bed, which was clipped and a sternal wire site which was double ligated with good hemostasis (03/08/2025).
-CI dwindled overnight, improved to 2.06. MANAGER NEWS = 0.84 Wilkes. Delphine = 0.8.
-The patient has had several episodes of hypotension, though to be due to compression of the SVG. The patient was taken to OR for placement of a ringed graft to prevent compression (03/09/2025).
-Patient returned to the OR for ligation of the IAN (persistent bleeding) and re-bypass to address the angulation of the original SVG to Diag, which is thought to be leading to his multiple hypotensive episodes (03/09/2025).
-s/p chest closure and Impella removal.
-Encourage incentive spirometry.
-PT/OT/ambulation.
#HFrEF/ICMO
-Acute on chronic in the setting of Type A dissection with moderate/severe AI.
-Weight falling with diuresis. Na up to 151 prompting free water boluses, now 146.
-GDMT when hemodynamics will tolerate:
-Diuretics: Bumetanide gtt on hold in light of worsening creatinine.
-Beta frantz: Metoprolol tartrate 37.5 mg BID.
-ACEI/ARB/ARNi: On hold due to BP/IRON.
-MRA: On hold due to BP/IRON.
-SGLT2i: On hold due to IRON.
-ICD: Not currently indicated.
#Heme
-Anemia, persistent.
-Hbg down to 8.2 (in spite of diuresis).
-MCV 103.
-Start B12/Folate.
-Thrombocytopenia, resolved.
#PNA
-Acute.
-Respiratory culture positive for Enterobacter amnigenus (Amoxicillin-R, Amoxicillin/Clavulanate-R, Ampicillin/Sulbactam-R, Cefazolin-R, Ceftriaxone-I).
-Continue cefepime per ID.
#CAD
-Chronic, stable.
-S/P CABG x 4 (MAGANA to LAD, SVG to OM1 to LPL, SVG to Diag).
-During operation for Ao dissection, the SVG graft was anastomosed to the SVG to diagonal graft and the LMCA/RCA were ligated to prevent further propagation of the dissection plane.
-The current anatomy is MAGANA to LAD, SVG from Ao graft to SVG to diagonal, sequential SVG Y-graft from diagonal graft to OM1 to LPL.
#Mitral regurgitation
-Chronic, stable
-S/P MV repair (closure of cleft between P2 and P3, free edge remodeling between P3 and commissure, placement of single [place]-Gaston suture from anterolateral papillary muscle head to P2 and P3, #32 Taylor Physio Flex band annuloplasty, SN [id number])
with Dr. Sullivan, 02/16/2025.
#Tricuspid regurgitation
-Chronic, stable.
-S/P TV repair (Simple tricuspid valve repair with #34 Medtronic Triad band annuloplasty, SN [id number]) with Dr. Sullivan, 02/16/2025.
#Atrial fibrillation
-Persistent.
-Currently in NSR.
-Rate/rhythm control with amiodarone, s/p MAZE with Dr. Sullivan, 02/16/2025.
-CHADS2-Vasc = 5 (CHF, HTN, Age x2, vascular disease).
-Anti-thrombotic therapy titrated based on coagulopathy, S/P LAAE (#40 AtriClip, SN [id number]) with Dr. Sullivan, 02/16/2025.
#IRON
-Cr 2.2.
-Nephrology following.
-Clear evidence of total body volume overload, but hypoalbuminemia and hypernatremia all suggest intravascular depletion (poor oncotic pressure).
#Acute liver injury
-Severe, multifactorial.
-LFTs normalized .
Critical Care Time = 36 minutes.
Subjective/Interval History:
Dobhoff placed yesterday and tube feeds have been started.
Weight down an additional 2.3 kg.
BP stable.
SaO2 = 99% on 4LNC.
NSVT on telemetry has prompted initiation of PO amiodarone.
WBC rising, now 24.8.
ID is guiding ABX use for PNA.
Metoprolol now at 37.5 mg
Sterile water boluses being given for hypernatremia.
Creatinine up to 2.2. Bumetanide gtt on hold.
DATA:
TTE, 03/04/2025:
SUMMARY
1. Moderately reduced LV systolic function. Ejection fraction is 35-40%. Global hypokinesis.
2. S/p mitral valve repair with peak/mean gradients of 15/5 mmHg. Trace mitral valve regurgitation.
3. Moderate/severe aortic regurgitation. PHT approx 250 msec.
4. S/p tricuspid valve repair with mean gradient of 2 mmHg. Mild tricuspid regurgitation. Estimated PASP 38 mmHg, assuming RAP 8 mmHg. Mildly elevated PASP.
5. Compared to 02/19/25: LVEF is stable in 35-40% range, mitral valve and tricuspid valve repairs are stable; aortic regurgitation has progressed from mild/moderate to moderate/severe.
SAJAN, 03/07/2025:
SUMMARY
1. There is a [place] type A DeBakey class I aortic dissection present.
2. Trileaflet aortic valve. Severe aortic regurgitation due to prolapse of the left vs non coronary cusp and aortic dissection.
3. Low normal ventricular systolic function. LVEF 45-50%.
4. S/p tricuspid valve repair. Trace residual tricuspid regurgitation.
5. S/p mitral valve repair. Trace residual mitral regurgitation.
6. Dr. Sullivan (CT surgery) notified of findings at time of study.
CT surgery, 03/07/2025:
Procedure(s) Performed:
1. Ultrasound-guided access using Seldinger technique 2 the right common femoral artery and vein with percutaneous access using a 25 [place] femoral venous cannula
2. Redo sternotomy with extensive adhesiolysis (Modifier 22 for additional dissection time of 1 hour)
3. Direct aortic cannulation using ultrasound and Seldinger technique with a SAJAN guidance verifying true lumen access
4. Moderate hypothermic circulatory arrest with antegrade cerebral perfusion
5. Hemiarch ascending aortic replacement
6. Aortic root replacement using a 27 mm valved conduit
7. Ligation of left and right coronary ostia as they were dissected coronary bypass grafting to an acute marginal
8. Relocation of previous vein grafts onto this acute marginal vein graft
9. Placement of temporary atrial ventricular pacing wires
10. Transesophageal echocardiography
11. Temporary chest packing, open chest.
Impella Placement, 03/08/2025:
Procedure(s) Performed:
1. The temporary dressing over top of the open chest was removed
2. Placement of atrial pacing wires
3. Anastomosis of a 10 mm straight tube graft off of the ascending aortic graft, graft to graft anastomosis
4. Graft tunneled to the left supra clavicular region between the strap muscles
5. Placement of a 5.5 direct aortic Impella LVAD
6. Chest closure in usual fashion
TTE, 03/08/2025:
SUMMARY
1. TDS.
2. In limited views, left ventricle appears normal sized with severely reduced systolic function. Left ventricle ejection fraction is 25-30% by visual estimation. Global hypokinesis. S/p Impella 5.5 insertion which appears to be appropriately
placed.
3. In limited views right ventricle appears normal sized with mildly reduced systolic function. Right ventricle does appear to expand in diastole.
4. Limited valvular interrogation.
5. Compared to SAJAN earlier in day, overall, no significant change.
Bedside Rexploration, 03/08/2025:
Procedure: Emergency bedside reopening of chest and the loculation of clot ligation of IAN which was the bleeding source, repacking with 1 vaginal pack and Kerlix and replacement of new chest tubes
CT surgery re-exploration, 03/09/2025 (morning):
PROCEDURES:
1. Mediastinal reexploration/irrigation and removal of packing.
2. Repositioning of proximal course of greater saphenous vein graft
with several 6-0 Prolene sutures (placed/subsequently removed).
3. Placement of 6 mm ringed PTFE graft around proximal segment of
greater saphenous vein graft .
4. Replacement of new mediastinal packing (1 vaginal pack and
partial roll of Kerlix; syringe based sternal separation).
5. Reexploration with replacement of new open chest dressing.
CT surgery re-exploration, 03/09/2025 (afternoon):
Procedure(s) Performed:
1. Reopening of temporary chest coverage.
2. Ligation of IAN.
3. Coronary artery bypass grafting x 1 (Aortic Graft to RSVG to RSVG - T-graft).
4. Open vein harvest of the left thigh.
5. Transesophageal echocardiography.
6. Repacking of chest and placement of temporary dressing.
Physical Exam
Vital Signs/Labs
Vital Signs
Temp Pulse Resp BP Pulse Ox
37.2 C 90 16 124/78 100
03/17/25 07:00 03/17/25 08:35 03/17/25 08:20 03/17/25 08:35 03/17/25 08:20
03/15/25 03/16/25 03/17/25
11:59 11:59 11:59
Actual Weight 97.9 kg 96 kg 93.7 kg
03/17/25 04:15
PT 18.5 Sec (11.4-14.6) H 03/14/25 04:33
INR 1.52 03/14/25 04:33
APTT 50.4 Sec (23.4-35.0) H 03/17/25 07:26
Magnesium 2.4 mg/dl (1.6-2.3) H 03/17/25 04:15
Triglycerides 111 mg/dl (10-149) 03/13/25 04:21
03/04/25
15:44
Jhm-B-Rgexdgaikdh Pept 2970
Physical Exam
Constitutional: No acute distress and Comfortable
EENT: Anicteric and Moist mucous membranes
Cardiovascular: Rhythm & rate is regular, JVD pressure is normal, Pedal edema present, S1S2 is normal and Murmur/rub/gallop absent
Respiratory: Respiratory effort normal, Wheeze Absent, Crackles Absent and Rhonchi Present
GI: Soft, Distention absent, Flat, Non tender and Normal bowel sounds
Neuro/Psych: Alert and Oriented
Data Reviewed
-
Date of Service: March 17, 2025
Medical Decision Making: Reviewed Test Results, Independent Historian Assessment and Test Interpretation
EKG: Tracing Personally Visualized and interpreted and Report Reviewed by me
Echo: Report Reviewed by me
X-Ray/CT/US/MRI/NUC/PET: Image Personally Visualized and interpreted and Report Reviewed by me
Medical Tests (PFT, Pathology etc): Report Reviewed by me
Labs: Labs Reviewed by me
Old Records: Reviewed
[2025-03-17] MEDS: CIPRO 500 MG PO ×2 (09:25→21:15)
[2025-03-17] MEDS: ASPIRIN RECTAL (09:28)
[2025-03-17 09:32] LABS: Urine Character Clear (Clear)
[2025-03-17 10:00] LABS: Urine Red Blood Cell 40-50 /HPF (0-2)
--- NOTE | 2025-03-17 10:44 | PTCARENOTE ---
1 unit PRBCs infusing per CTNP order.
--- NOTE | 2025-03-17 12:14 | PTCARENOTE ---
Assessment unchanged; A-flutter on monitor and VSS; blood infusing; family at bedside and updated.
[2025-03-17] MEDS: TYLENOL 975 MG TUBE ×2 (13:15→21:15)
[2025-03-17 13:23] LABS: Glucose - Point of Care 140 mg/dl (70-99)
[2025-03-17 13:47] LABS: APTT 43.5 Sec (23.4-35.0)
[2025-03-17] MEDS: NOVOLOG FLEXPEN-LOW RESISTANCE SC ×3 (14:15→17:00)
--- NOTE | 2025-03-17 14:16 | W.PN.NEPH.PH ---
Today's Communication / Plan
-
follow labs
holding bumex today
Assessment/Plan
-
Impression:
Acute type A Aortic dissection with involvement of bilateral coronary ostia and circumferentially around the root with operative repair on 03/08/25
Acute kidney injury
Postoperative cardiogenic shock now on inotropic support
History of CABG x 4 mitral valve repair tricuspid valve repair maze and EVI exclusion on 02/16/2025
Status post Impella placement on 03/08/2025
Lactic acidosis 12.4
Vent dependent respiratory failure
NSVT
Ischemic cardiomyopathy with EF of 45 to 50%
Atrial fibrillation
History of hypertension
Plan:
cr up at 2.2
off bumex gtt per primary
mild hypernatremia-improving since increasing FWF in TF
ok for IV bumex from tomorrow
follow BMP
BP stable
wean O2 as possible
-
-
Date of Service: March 17, 2025
CC / HPI / ROS
-
Chief Complaint:
aortic dissection
IRON
History of Present Illness:
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
BP stable off pressors
Creatinine up at 2.2, na 147
CRRT off 03/11/2025, CVC removed.
hgb stable low 8.2
diuresing well with bumex gtt, wt decreasing
critically ill in CVICU on mid flow O2
WBC up at 24.5
Review of Systems:
non oliguric
no CP, confused but more alert today
Chest tubes 1 remains
no fever
Labs
-
Labs:
WBC 24.8 10^3/uL (4.8-10.8) H 03/17/25 04:15
RBC 2.69 10^6/uL (4.70-6.10) L 03/17/25 04:15
Hgb 8.2 g/dL (13.0-18.0) L 03/17/25 04:15
Hct 27.8 % (39.0-52.0) L 03/17/25 04:15
Plt Count 237 10^3/uL (130-400) 03/17/25 04:15
eGFR 30.47 03/17/25 04:15
Phosphorus Cancelled 03/12/25 20:00
Yyo-W-Lngtzfpawlc Pept 2970 pg/ml 03/04/25 15:44
Albumin 2.6 g/dl (3.5-5.0) L 03/17/25 04:15
Physical Exam
-
Vital Signs:
Vital Signs
Temp Pulse Resp BP Pulse Ox
98.4 F 91 18 135/83 97
03/17/25 14:00 03/17/25 14:00 03/17/25 14:00 03/17/25 14:00 03/17/25 14:00
Cardiovascular:: Regular rate and rhythm
Respiratory:: Bilateral: Coarse
Lung Excursion:: Abnormal
Abdomen:: Nontender and Soft
Bowel Sounds:: Decreased
Extremity Edema:: +2: Bilateral:
Buenrostro Catheter: Yes
[2025-03-17 14:27] LABS: Blood Urea Nitrogen 78 mg/dl (9-20); Calcium 8.2 mg/dl (8.4-10.2); Carbon Dioxide 33 mmol/L (22-30); Chloride 113 mmol/L (98-107); Estimated Creatinine Clearance 27 ml/min; Glucose 137 mg/dl (70-99); Potassium 3.5 mmol/L (3.5-5.1); Sodium 150 mmol/L (135-145); eGFR 26.14
--- NOTE | 2025-03-17 16:25 | PTCARENOTE ---
Assessment unchanged; family at bedside; A-flutter on monitor and VSS; bedside US done; pt sent to CAT with RN.
[2025-03-17] MEDS: LIPITOR 40 MG TUBE (16:49)
[2025-03-17 17:01] LABS: Glucose - Point of Care 137 mg/dl (70-99)
[2025-03-17] MEDS: NSS IV (19:15)
[2025-03-17 19:25] LABS: Blood Urea Nitrogen 80 mg/dl (9-20); Calcium 8.3 mg/dl (8.4-10.2); Carbon Dioxide 33 mmol/L (22-30); Chloride 113 mmol/L (98-107); Estimated Creatinine Clearance 30 ml/min; Glucose 136 mg/dl (70-99); Potassium 3.5 mmol/L (3.5-5.1); Sodium 152 mmol/L (135-145); eGFR 28.89
[2025-03-17] MEDS: ELIQUIS 2.5 MG PO (20:23)
--- NOTE | 2025-03-17 22:36 | PTCARENOTE ---
Received pt from previous rn; pt AAOX1 confused and calm; a-fib on monitor HR 80 -90s and VSS; RIJ Cordis, Right Double lumen PICC all lines patent; Epicardial A/V wires insulated; lungs diminished ; CT x2 to -20 wall suction no air leak and no
crepitus noted; hypoactive bowel sounds; Right nare Dobbhoff patent, tube feedings infusing at 10 mls/hr with 50ml H2O water flush an hour; pt tolerating feedings without difficulties; male purwick intact draining clear yellow urine. Doppler pulses
throughout; +2 generalized edema; left upper extremity +3 and +3 scordal edema; all surgical sites C/D/I; see nursing documentation for further details.
[2025-03-18] VITALS (28 sets, daily range): BP systolic 100–130; BP diastolic 57–96; PULSE 78–82; O2SAT 93–98; BMI 28.6
[2025-03-18 00:21] LABS: Glucose - Point of Care 137 mg/dl (70-99)
[2025-03-18] MEDS: VENTOLIN NEBULES INH ×3 (00:36→15:15)
[2025-03-18] MEDS: NOVOLOG FLEXPEN-LOW RESISTANCE SC ×3 (00:43→23:08)
[2025-03-18 01:06] LABS: Blood Urea Nitrogen 81 mg/dl (9-20); Calcium 8.2 mg/dl (8.4-10.2); Carbon Dioxide 34 mmol/L (22-30); Chloride 114 mmol/L (98-107); Estimated Creatinine Clearance 30 ml/min; Glucose 134 mg/dl (70-99); Potassium 3.6 mmol/L (3.5-5.1); Sodium 152 mmol/L (135-145); eGFR 28.89
[2025-03-18 04:31] LABS: Hematocrit 30.7 % (39.0-52.0); Hemoglobin 9.2 g/dL (13.0-18.0); Mean Corp Hgb Conc. 30.0 g/dL (33.0-37.0); Mean Corpuscular Volume 103.0 fL (80.0-94.0); Platelet Count 247 10^3/uL (130-400); Red Cell Dist. Width 21.1 % (11.5-14.5)
--- NOTE | 2025-03-18 04:34 | PTCARENOTE ---
AM labs sent. VSS. Patient resting comfortably in bed. NSR w/ BBB per tele monitor HR 90s, assessment remains unchanged
[2025-03-18 04:45] LABS: ALT (SGPT) 30 U/L (0-50); AST (SGOT) 52 U/L (17-59); Albumin 2.5 g/dl (3.5-5.0); Alkaline Phosphatase 195 U/L (38-126); Blood Urea Nitrogen 80 mg/dl (9-20); Calcium 8.3 mg/dl (8.4-10.2); Carbon Dioxide 35 mmol/L (22-30); Chloride 113 mmol/L (98-107); Estimated Creatinine Clearance 30 ml/min; Glucose 132 mg/dl (70-99); Magnesium 2.5 mg/dl (1.6-2.3); Potassium 3.5 mmol/L (3.5-5.1); Sodium 148 mmol/L (135-145); Total Protein 5.1 g/dl (6.3-8.2); eGFR 28.89
[2025-03-18] MEDS: SYNTHROID 150 MCG TUBE (06:06)
[2025-03-18] MEDS: TYLENOL 975 MG TUBE ×3 (06:06→21:24)
[2025-03-18 06:09] LABS: Glucose - Point of Care 128 mg/dl (70-99)
--- NOTE | 2025-03-18 06:57 | W.PN.CD ---
Today's Communication / Plan
-
B12/Folate.
Allow to autodiurese.
PT/OT.
Impression / Plan
-
Impression/Plan: 74 yo male with PMH of ICM EF 35-40%, chronic HFrEF, persistent A fib on eliquis, HTN, CAD s/p CABG x 4, MV repair, TV repair, MAZE, and EVI exclusion with Dr. Sullivan (02/16/25); admitted on 03/04/2025 with acute on chronic HFrEF,
subsequently found to have severe AR due to [place] type A aortic dissection.
#Aortic dissection
-Acute, Moses type A w/ involvement of b/l Coronary ostia and circumferentially around the root causing severe AI, distally to the Aorto-iliac bifurcation complicated by shock.
-s/p #27 valved conduit and hemiarch replacement, ligation of L and R coronary ostia as they were dissected; bypass grafting to an acute marginal and relocation of previous vein grafts onto acute marginal vein graft..
-Loss of Impella pulsatility lead to TTE guided repositioning. Patient was re-opened at the bedside, revealing clot around the right ventricle and SVG that appeared to compress both. The clot was evacuated (05/08/2025).
-Arterial bleeding was observed from the IAN bed, which was clipped and a sternal wire site which was double ligated with good hemostasis (03/08/2025).
-CI dwindled overnight, improved to 2.06. STYRENE DEHYDRATION REACTOR OPERATOR = 0.84 Wilkes. Delphine = 0.8.
-The patient has had several episodes of hypotension, though to be due to compression of the SVG. The patient was taken to OR for placement of a ringed graft to prevent compression (03/09/2025).
-Patient returned to the OR for ligation of the IAN (persistent bleeding) and re-bypass to address the angulation of the original SVG to Diag, which is thought to be leading to his multiple hypotensive episodes (03/09/2025).
-s/p chest closure and Impella removal.
-Encourage incentive spirometry.
-PT/OT/ambulation.
#HFrEF/ICMO
-Acute on chronic in the setting of Type A dissection with moderate/severe AI.
-Weight falling with diuresis. Na up to 151 prompting free water boluses, now 146.
-GDMT when hemodynamics will tolerate:
-Diuretics: Bumetanide gtt on hold in light of worsening creatinine.
-Beta frantz: Metoprolol tartrate 37.5 mg BID.
-ACEI/ARB/ARNi: On hold due to BP/IRON.
-MRA: On hold due to BP/IRON.
-SGLT2i: On hold due to IRON.
-ICD: Not currently indicated.
#Anemia
-Post operative, persistent.
-Hbg up to 9.2 (after one unit).
-MCV 103.
-Start B12/Folate.
#PNA
-Acute.
-Respiratory culture positive for Enterobacter amnigenus (Amoxicillin-R, Amoxicillin/Clavulanate-R, Ampicillin/Sulbactam-R, Cefazolin-R, Ceftriaxone-I).
-Continue cefepime per ID.
#CAD
-Chronic, stable.
-S/P CABG x 4 (MAGANA to LAD, SVG to OM1 to LPL, SVG to Diag).
-During operation for Ao dissection, the SVG graft was anastomosed to the SVG to diagonal graft and the LMCA/RCA were ligated to prevent further propagation of the dissection plane.
-The current anatomy is MAGANA to LAD, SVG from Ao graft to SVG to diagonal, sequential SVG Y-graft from diagonal graft to OM1 to LPL.
#Mitral regurgitation
-Chronic, stable
-S/P MV repair (closure of cleft between P2 and P3, free edge remodeling between P3 and commissure, placement of single [place] suture from anterolateral papillary muscle head to P2 and P3, #32 Taylor Physio Flex band annuloplasty, SN [id number])
with Dr. Sullivan, 02/16/2025.
#Tricuspid regurgitation
-Chronic, stable.
-S/P TV repair (Simple tricuspid valve repair with #34 Medtronic Triad band annuloplasty, SN [id number]) with Dr. Sullivan, 02/16/2025.
#Atrial fibrillation
-Persistent.
-Currently in NSR.
-Rate/rhythm control with amiodarone, s/p MAZE with Dr. Sullivan, 02/16/2025.
-CHADS2-Vasc = 5 (CHF, HTN, Age x2, vascular disease).
-Anti-thrombotic therapy with apixaban 2.5 mg BID, S/P LAAE (#40 AtriClip, SN [id number]) with Dr. Sullivan, 02/16/2025.
#IRON
-Cr 2.2.
-Nephrology following.
-Clear evidence of total body volume overload, but hypoalbuminemia and hypernatremia all suggest intravascular depletion (poor oncotic pressure).
#Acute liver injury
-Severe, multifactorial.
-LFTs normalized .
Critical Care Time = 32 minutes.
Subjective/Interval History:
Transfused one unit of PRBC's yesterday with appropriate response.
Transitioned to apixaban 2.5 mg BID (renal function, age).
Weight down 0.7 kg.
UA shows hematuria (4+ blood, 40-50 RBC's).
DATA:
TTE, 03/04/2025:
SUMMARY
1. Moderately reduced LV systolic function. Ejection fraction is 35-40%. Global hypokinesis.
2. S/p mitral valve repair with peak/mean gradients of 15/5 mmHg. Trace mitral valve regurgitation.
3. Moderate/severe aortic regurgitation. PHT approx 250 msec.
4. S/p tricuspid valve repair with mean gradient of 2 mmHg. Mild tricuspid regurgitation. Estimated PASP 38 mmHg, assuming RAP 8 mmHg. Mildly elevated PASP.
5. Compared to 02/19/25: LVEF is stable in 35-40% range, mitral valve and tricuspid valve repairs are stable; aortic regurgitation has progressed from mild/moderate to moderate/severe.
SAJAN, 03/07/2025:
SUMMARY
1. There is a Moses type A DeBakey class I aortic dissection present.
2. Trileaflet aortic valve. Severe aortic regurgitation due to prolapse of the left vs non coronary cusp and aortic dissection.
3. Low normal ventricular systolic function. LVEF 45-50%.
4. S/p tricuspid valve repair. Trace residual tricuspid regurgitation.
5. S/p mitral valve repair. Trace residual mitral regurgitation.
6. Dr. Sullivan (CT surgery) notified of findings at time of study.
CT surgery, 03/07/2025:
Procedure(s) Performed:
1. Ultrasound-guided access using Seldinger technique 2 the right common femoral artery and vein with percutaneous access using a 25 [place] femoral venous cannula
2. Redo sternotomy with extensive adhesiolysis (Modifier 22 for additional dissection time of 1 hour)
3. Direct aortic cannulation using ultrasound and Seldinger technique with a SAJAN guidance verifying true lumen access
4. Moderate hypothermic circulatory arrest with antegrade cerebral perfusion
5. Hemiarch ascending aortic replacement
6. Aortic root replacement using a 27 mm valved conduit
7. Ligation of left and right coronary ostia as they were dissected coronary bypass grafting to an acute marginal
8. Relocation of previous vein grafts onto this acute marginal vein graft
9. Placement of temporary atrial ventricular pacing wires
10. Transesophageal echocardiography
11. Temporary chest packing, open chest.
Impella Placement, 03/08/2025:
Procedure(s) Performed:
1. The temporary dressing over top of the open chest was removed
2. Placement of atrial pacing wires
3. Anastomosis of a 10 mm straight tube graft off of the ascending aortic graft, graft to graft anastomosis
4. Graft tunneled to the left supra clavicular region between the strap muscles
5. Placement of a 5.5 direct aortic Impella LVAD
6. Chest closure in usual fashion
TTE, 03/08/2025:
SUMMARY
1. TDS.
2. In limited views, left ventricle appears normal sized with severely reduced systolic function. Left ventricle ejection fraction is 25-30% by visual estimation. Global hypokinesis. S/p Impella 5.5 insertion which appears to be appropriately
placed.
3. In limited views right ventricle appears normal sized with mildly reduced systolic function. Right ventricle does appear to expand in diastole.
4. Limited valvular interrogation.
5. Compared to SAJAN earlier in day, overall, no significant change.
Bedside Rexploration, 03/08/2025:
Procedure: Emergency bedside reopening of chest and the loculation of clot ligation of IAN which was the bleeding source, repacking with 1 vaginal pack and Kerlix and replacement of new chest tubes
CT surgery re-exploration, 03/09/2025 (morning):
PROCEDURES:
1. Mediastinal reexploration/irrigation and removal of packing.
2. Repositioning of proximal course of greater saphenous vein graft
with several 6-0 Prolene sutures (placed/subsequently removed).
3. Placement of 6 mm ringed PTFE graft around proximal segment of
greater saphenous vein graft .
4. Replacement of new mediastinal packing (1 vaginal pack and
partial roll of Kerlix; syringe based sternal separation).
5. Reexploration with replacement of new open chest dressing.
CT surgery re-exploration, 03/09/2025 (afternoon):
Procedure(s) Performed:
1. Reopening of temporary chest coverage.
2. Ligation of IAN.
3. Coronary artery bypass grafting x 1 (Aortic Graft to RSVG to RSVG - T-graft).
4. Open vein harvest of the left thigh.
5. Transesophageal echocardiography.
6. Repacking of chest and placement of temporary dressing.
Physical Exam
Vital Signs/Labs
Vital Signs
Temp Pulse Resp BP Pulse Ox
37.0 C 92 18 130/87 98
10/31/25 04:00 03/18/25 06:00 03/18/25 04:00 03/18/25 05:00 03/18/25 06:00
03/16/25 03/17/25 03/18/25
11:59 11:59 11:59
Actual Weight 96 kg 93.7 kg 92.9 kg
03/18/25 04:02
03/18/25 04:02
PT 18.5 Sec (11.4-14.6) H 03/14/25 04:33
INR 1.52 03/14/25 04:33
APTT Cancelled 03/17/25 20:00
Magnesium 2.5 mg/dl (1.6-2.3) H 03/18/25 04:02
Triglycerides 111 mg/dl (10-149) 03/13/25 04:21
03/04/25
15:44
Nnd-J-Vjdklwrkmaw Pept 2970
Physical Exam
Constitutional: No acute distress and Comfortable
EENT: Anicteric and Moist mucous membranes
Cardiovascular: Rhythm & rate is regular, JVD pressure is normal, JVD present, S1S2 is normal and Murmur/rub/gallop absent
Respiratory: Respiratory effort normal and Other (Decreased throughout.)
GI: Soft, Distention absent, Flat, Non tender and Normal bowel sounds
Neuro/Psych: AO x 3
Data Reviewed
-
Date of Service: March 18, 2025
Medical Decision Making: Reviewed Test Results, Independent Historian Assessment and Test Interpretation
EKG: Tracing Personally Visualized and interpreted and Report Reviewed by me
Echo: Tracing Personally Visualized and interpreted and Report Reviewed by me
X-Ray/CT/US/MRI/NUC/PET: Image Personally Visualized and interpreted and Report Reviewed by me
Medical Tests (PFT, Pathology etc): Report Reviewed by me
Labs: Labs Reviewed by me
Old Records: Reviewed
[2025-03-18] MEDS: MUCOMYST 20% 4 ML INH ×2 (07:13→17:51)
[2025-03-18] MEDS: VENTOLIN NEBULES 2.5 MG INH ×4 (07:13→17:51)
[2025-03-18] MEDS: KCL 100 IV (07:31)
--- NOTE | 2025-03-18 07:45 | W.PN.INTV ---
Today's Communication / Plan
Recommendations
Continue with airway clearance
Patient requires encouragement to cough every hour when awake
Tolerating tube feeds, aspiration precautions
Out of bed to chair
Antibiotics per ID
We will sign off. Please call with questions
Assessment
-
Assessment: 74-year-old male with a past medical history of multivessel CAD s/p CABG, history of severe MR s/p radical mitral valve repair, severe tricuspid valve insufficiency s/p tricuspid valve repair, chronic HFmrEF, hyperlipidemia,
hypertension, paroxysmal A-fib on Eliquis s/p open left atrial maze + left atrial appendage exclusion, hypothyroidism and history of colon adenoma who presents with shortness of breath, poor appetite and ankle swelling. Patient recently had a
cardiothoracic surgery on 02/16 after proceeding left + right heart catheterization on 02/04/2025 showed triple-vessel CAD with mildly elevated biventricular filling pressures. Patient was found to have acute postoperative blood loss anemia,
postoperative coagulopathy and he improved and was able to be discharged home on 02/22/2025. He is now returning with shortness of breath with exertion, lower extremity edema and imaging consistent with acute decompensated heart failure. IV Lasix
started. Echo performed on 03/04/2025 showed reduced EF now at 35-40%, global hypokinesis, with worsening aortic regurgitation from mild/moderate to moderate/severe.He was also started on metoprolol due to NSVT. Given the worsening aortic
insufficiency, a SAJAN was performed on 03/07/2025 showing a [place] type a DeBakey class I aortic dissection with severe aortic regurgitation due to left versus noncoronary cusp prolapse and aortic dissection. CT surgery notified and a stat CT
angio chest/abdomen/pelvis was performed confirming an aortic dissection extending throughout the aorta beginning at the root and extending to the aortic bifurcation. There also were small bilateral pleural effusions with other postoperative
changes along the sternum with a possible small hematoma. Patient brought to the OR and underwent a redo sternotomy with extensive adhesiolysis, hemiarch ascending aortic replacement, aortic root replacement, ligation of left and right coronary
ostia as they were dissected, and previous vein grafts were relocated onto the acute marginal vein graft, and his chest was left open. Patient transferred to the CVICU postoperatively, and supervisor brew house services consulted for additional
management/recommendations.
Patient went back to [facility] on 03/11 for chest closure and bronchoscopy
On 03/12, he went to [facility] for repeat bronchoscopy with Impella removal on 03/12 -respiratory sample sent for cultures (growing GNR � follow up species)
Extubated 03/14
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
(02/16/2025), chronic HFmrEF, hyperlipidemia, hypertension, paroxysmal A-fib s/p open left atrial maze + EVI�exclusion (02/16/2025) on Eliquis, mild aortic valve insufficiency secondary to leaflet prolapse, hypothyroidism, history of colon adenoma
Impression:
#Type A aortic dissection with resultant severe aortic regurgitation s/p redo sternotomy with extensive adhesiolysis, moderate hypothermic circulatory arrest, hemiarch ascending aortic replacement, aortic root replacement, ligation of left and right
coronary ostia as they were dissected followed by relocation of previous vein grafts onto acute marginal vein graft, and chest left open (POD #6)
#Cardiogenic shock now on multiple vasopressors and placement of a 5.5 direct aortic Impella LVAD with subsequent chest closure in usual fashion (POD #5)
#Cardiac tamponade with cardiovascular collapse s/p emergent bedside reopening of chest with ligation of IAN with multiple clot evacuation and repacking with vaginal pack + Kerlix and replacement chest tubes (POD #5)
#Mediastinal reexploration/irrigation and removal packing with repositioning of proximal course of GSV graft with placement of 6 mm ringed PTFE graft around proximal segment of GSV graft with replacement of new mediastinal packing and new open chest
dressing placed (POD#5)
#Kinking of single vein graft s/p ligation of IAN + CABG x 1 with aortic Graft to RSVG to RSVG - T-graft (POD #4)
#Ventilator dependent respiratory failure with acute hypoxia
#IRON with proximal right renal artery narrowing with decreased right kidney perfusion (per CTA chest/abdomen/pelvis from 03/07/2025) s/p CRRT (off CRRT since 03/11/2025)
#Postoperative coagulopathy
#Lactic acidosis � resolved since 03/10/2025
#Acute HFrEF exacerbation (present on admission)
#Shock liver with hyperbilirubinemia � improved
#Chronic anemia (baseline 9.5-11 g/dL)
#Multivessel CAD s/p CABG x 4, severe mitral valve insufficiency s/p radical mitral valve repair, severe tricuspid valve insufficiency (functional) s/p simple tricuspid valve repair (all on 02/16/2025)
#Paroxysmal A-fib s/p open left atrial maze + EVI�exclusion (02/16/2025) on Eliquis
Plan/recommendations:
Respiratory status tenuous but improved
Eliquis started
Tolerating tube feeds
98% on high flow oxygen, has been weaned down to 2 L
Moving forward
Continue with airway clearance measures
Chest percussion, encouraged cough
Every 6 hours
NAC nebs
Nasal trumpet discontinued 03/16
Out of bed to chair as able
Negative fluid status noted
Nephrology following
Creatinine improving
Chest tube per surgery
Monitor hemoglobin
Monitor platelet count and coags
Transfuse blood products per CT surgery protocol
Follow-up blood sugars
Gram-negative bacilli per endotracheal specimen 03/12, Legionella and streptococcal antigen negative negative
Currently on cefepime. Vancomycin discontinued
Remains afebrile, white count elevated
ID following. Antibiotics cefepime, changed to ciprofloxacin
Cultures pending
Aspiration precautions
Head of bed elevated
DVT prophylaxis: Eliquis resumed
Early mobilization
Updated family at bedside
We will sign off. Please call with questions
Data:
CTA chest/abdomen/pelvis with/without contrast 03/07/2025:
1.There is an aortic dissection extending throughout the aorta beginning at the root and extending to the aortic bifurcation consistent with [place] type A dissection.The aortic branch arteries appear to be supplied off the true lumen. There is
associated moderate narrowing of the descending thoracic aorta and proximal abdominal aorta. Additionally there is narrowing at the proximal right renal artery with associated asymmetrically decreased perfusion of the right kidney.
2. Small bilateral pleural effusions with adjacent atelectasis.
3. Postoperative changes along the sternum with a possible small hematoma.
CXR 03/09/2025:
Stable position of the endotracheal tube, [place]-Fabio catheter, Impella device, and bilateral chest tubes.
A sternal retractor again projects over the chest.
No focal consolidation, pleural effusion, or pneumothorax. Sternotomy wires and cardiac valve prostheses. Stable cardiomediastinal silhouette. Chronic degenerative changes of the spine.
Subjective Dataa
Subjective Data
Date of Service:
Date of Service: March 18, 2025
Chief Complaint: Mold Swabber Follow Up
Subjective:
Overall, patient appears to be comfortable, on minimal oxygen, sitting in chair. Family at bedside. Continues to have a weak cough. Occasionally confused but following commands, moving extremities. Profoundly deconditioned. Dobbhoff tube in
place
Objective Data
Data Reviewed
Vital Signs / I&O / Oxygen:
Vital Signs
Temp Pulse Resp BP Pulse Ox
98.6 F 98 18 127/83 86
03/18/25 04:00 03/18/25 07:17 03/18/25 07:17 03/18/25 07:00 03/18/25 06:50
Intake and Output
03/17/25 03/18/25 03/19/25
06:59 06:59 06:59
Intake Total 1724.6 / 1761.3 1970.1 / 2030.1 60 / 60
Output Total 3850 / 4000 2875 / 2975 100 / 100
Balance -2125.4 / -2238.7 -904.9 / -944.9 -40 / -40
SaO2 [CPAP/PSV] 97
SaO2 [A/C] 95
SaO2 [SIMV] 98
SaO2 86
Nasal Cannula flow liters per 2
minute
Physical Exam
General: Comfortable (Follows commands, generally weak), Other (2 L) and Other (Upper extremity PICC line, chest tube, upper extremity PICC line)
HEENT: Normocephalic and Anicteric
Cardiovascular: S1-S2, Regular Rhythm, Murmur (n), Rub (n) and Peripheral Edema (1+)
Respiratory: Wheeze (n), Crackles (n), Rhonchi (few with cough), Non-Labored Respirations, Stridor (n), Chest Tube (No airleak), Other (Anterior chest dressing) and Other (Decreased breath sounds at base)
GI: Soft, Non Distended and Non Tender
Neurology: Awake, Alert, No Motor Deficits (Profoundly weak, moves all extremities) and Other (Following commands, moving extremities. He is intermittently confused)
Skin: Cyanosis (n), Jaundice (n) and Bruising (Few scattered)
Labs/Micro/Reports
Lab Data
03/18/25 04:02
03/18/25 04:02
Laboratory Results
03/17/25 03/17/25 03/17/25
07:26 13:27 20:00
APTT 50.4 H 43.5 H Cancelled
--- NOTE | 2025-03-18 08:03 | W.PN.CT ---
Today's Communication / Plan
-
-pod #12
-no issues overnight
-no drips
-failed FEES eval. Plans for PEG tube placement on Wednesday 03/21 after speech evaluation. Eliquis is held (last dose 03/18)
-was switched from iv Heparin to Eliquis on 03/17 for a-fib
-wbc has been trending up. Cefepime was changed to Cipro by ID. Buenrostro and Cordis were dcd 03/17. Repeat blood/urine cxs pending
-pleur CTs dcd 03/18. Ostomy bag placed over R CT site for drainage
-VIK at chest incision
-NG tube placed 03/16- TF started @ 10 cc/hr with 50 cc water flush/hr. Severe dysphagia following Fees on 03/17- follow
-follow Na - 148 today (improved from 152)
-Monitor h/h stable- 9.3 today
-Monitor plts 245K-improving
-Monitor cr -2.2 today (2.3 on 03/18, 2.5 on 03/17; 1.9-2.1 on 03/16)
-Elevate scrotum in light of scrotal edema
-Alert and oriented x 2, moving all extremities appropriately. A bit impulsive
-Extubated on 03/14/25, currently doing well on 2L NC
-Currently on Mucomyst.
-Wean O2 as tolerated
-Encourage use of IS/Acapella
-Cont. chest PT
-Sputum from bronchoscopy grew Enterobacter, on Cefepime per ID
-Impella was weaned and d/c'd at bedside by Dr. Sullivan on 03/12/25
-Underwent Bronchoscopy at bedside by Dr. Sullivan on03/12/25, f/u culture. F/U cxr
-Underwent chest washout/closure and bronchoscopy with lavage on 03/11/25
-Eventual rehab placement
-appreciate everyone's input
Assessment / Plan
-
Assessment:
-S/p Emergent Redo sternotomy with extensive adhesiolysis (Modifier 22 for additional dissection time of 1 hour)/Hemiarch ascending aortic replacement/ Aortic root replacement using a 27 mm valved conduit/Ligation of left and right coronary ostia as
they were dissected coronary bypass grafting to an acute marginal/Relocation of previous vein grafts onto this acute marginal vein graft/Temporary chest packing, open chest, by Dr. Sullivan, 03/07/25, pod#12
-S/p placement of a 5.5 direct aortic Impella LVAD on 03/08/[address] Sullivan
-Cardic tamponade/ Cardiovascular collapse- s/p Emergency bedside reopening of chest and the evacuation of clot; ligation of IAN, which was the bleeding source; repacking with 1 vaginal pack and Kerlix; replacement of new chest tubes by Dr. Sullivan on
03/08/25
S/p�mediastinal�reexploration/irrigation and placement of�6mm�ringed PTFE graft around the greater�saphaenous�graft. ���S/P�Emergent�Ligation of IAN, Coronary artery bypass grafting x 1 (Aortic Graft to RSVG to RSVG - T-graft)�03/09
-S/P Washout with antibiotic solution inspection of all surgical sites and closure with wires and plates, by Dr. Sullivan, 03/11/25
-S/P Endotracheal bronchoscopy with lavage, by Dr. Carpenter, 03/07/25
-S/p Impella was weaned and d/c'd at bedside by Dr. Sullivan 03/12/25
-S/P Bronchoscopy at bedside by Dr. Sullivan 03/12/25
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
-Worsening of aortic valve insufficiency to severe secondary to dissection
-Acute on chronic congestive heart failure with volume overload secondary to new aortic valve insufficiency
-Hypertension
-Hyperlipidemia
-Hypothyroidism
-AFIB on Eliquis
-Ischemic CM
-Recent cardiac surgery over 20 days ago
-Mitral valve insufficiency status post repair
-Tricuspid insufficiency status post repair
-Coronary artery disease status post CABG
-S/P CABG x 4, MV repair, TV repair, MAZE, and EVI exclusion, Dr. Sullivan 02/16/25, Readmitted for SOB on 03/04
-Acute intraop/postop blood loss/Anemia (transfused 14u PRBC's)
-Acute intraop and postop coagulopathy (Administered 10mg Factor VII, 4 of cryo and 11 FFP ); chest packed and kept opened until 03/11/25
-Acute postop thrombocytopenia (transfused 11 {5pks} plts)
-Acute postop Pulmonary insufficiency
-Acute postop VDRF
-Acute postop Metabolic Acidosis, followed by metabolic alkalosis
-Acute postop Lactic acidosis
-IRON
-Cardiac tamponade 03/08/25
-Acute postop cardiogenic shock
-Acute postop scrotal edema
-Acute postop a-fib
-Acute postop hypernatremia
Discussed patient care with: Nursing and Care Team
Subjective
-
Date of Service: March 18, 2025
Objective Data
-
Lab Results
03/18/25 04:02
03/18/25 04:02
PT 18.5 Sec (11.4-14.6) H 03/14/25 04:33
INR 1.52 03/14/25 04:33
APTT Cancelled 03/17/25 20:00
Vital Signs
Vital Signs
Temp Pulse Resp BP Pulse Ox
98.6 F 98 18 127/83 86
03/18/25 04:00 03/18/25 07:17 03/18/25 07:17 03/18/25 07:00 03/18/25 06:50
CT Intake/Output/Weight
03/17/25 03/18/25 03/18/25
18:59 06:59 18:59
Intake Total 1594.1 / 2030.1 376 / 2030.1 60
Output Total 1680 / 2975 1195 / 2975 100 / 100
Balance -85.9 / -944.9 -819 / -944.9 -40 / -40
SaO2: 86
Physical Exam
-
General: Awake and Oriented (to self and year (not to place). Intermittent confusion)
Cardiovascular: irregular rate & rhythm, No Murmurs and No Rub
Respiratory: Decreased Breath Sounds
Sternum: Stable
Incision: Clean, Dry and Intact
Abdomen: soft, nontender, nondistended, + bowel sounds
Extremities:1+ Edema
Data Reviewed
-
Lab Results: Results Reviewed
Medications: Active Meds Reviewed
Chest X-Ray: Report Reviewed and Image Reviewed
ECG: Report Reviewed and Image Reviewed
[2025-03-18] MEDS: PACERONE 200 MG TUBE ×3 (08:30→21:24)
[2025-03-18] MEDS: KLOR-CON 40 MEQ PO ×2 (08:30→20:32)
[2025-03-18] MEDS: PROTONIX IV 40 MG IV (08:30)
[2025-03-18] MEDS: CIPRO 500 MG PO ×2 (08:30→20:32)
[2025-03-18] MEDS: NSS (PRESERVATIVE FREE) 10 ML IV (08:30)
[2025-03-18] MEDS: ROBITUSSIN 200 MG TUBE ×4 (08:30→21:25)
[2025-03-18] MEDS: LOPRESSOR 37.5 MG TUBE (08:31)
[2025-03-18] MEDS: LOW STRENGTH ASPIRIN 81 MG TUBE (08:31)
[2025-03-18] MEDS: ELIQUIS 2.5 MG PO (08:31)
[2025-03-18] MEDS: MIRALAX 17 GRAMS TUBE (08:36)
--- NOTE | 2025-03-18 09:37 | W.PN.UPDATE ---
Update Note
Progress Note Update
Pleural chest drains removed. No pacing required, 2 atrial and 1 bipolar v wire clipped at skin level. New VIK dressing applied over sternum. ternotomy with sutures and sheldon intact.
--- NOTE | 2025-03-18 09:38 | W.PN.ID1 ---
Date of Service
Date of Service: March 18, 2025
Today's Communication
Follow Ucx, bcx's.
Continue cipro.
Assessment / Plan
# Encephalopathy
- improving off cefepime
# Enterobacter pneumonia
- O2 requirement decreasing
- s/p 7d cefepime
- continue cipro 500mg NGT/po q12 through 03/20 (10 day total abx course)
- Aspiration precaution.
# Leukocytosis
- continue to trending up
- unclear source to date
- no diarrhea, afebrile, Neg DVT LUE
- 03/17 CT chest/abd/pelvis: no source to explain elev wbc
- Buenrsotro/chest tubes/lines removed
-Check UA 1+LE, 11-15 wbc, Ucx pending
- blood cx's x 2 pending
- Continue to trend WBC.
# Type A aortic dissection
- s/p repair, OR 03/07, 03/08, 03/09, 03/11
# s/p cardiogenic shock
# IRON
#Conditions present on admission
Hypertension
Dyslipidemia
Atrial fibrillation s/p MAZE, EVI exclusion 02/16/25
CAD status post CABG x 4
Mitral valve repair 02/16/25
Tricuspid valve repair 02/16/25
HFrEF
Hypothyroidism
Chief Complaint
-: Pneumonia
Subjective / Review of Systems
sitting up in chair.
pt reports less confused.
Cough decreased.
Vital Signs / Physical Exam
Vital Signs
Vital Signs
Temp Pulse Resp BP Pulse Ox
97.4 F 92 20 126/81 86
03/18/25 08:00 03/18/25 08:20 03/18/25 08:00 03/18/25 08:00 03/18/25 08:08
Physical Exam
Constitutional: Comfortable and Chronically Ill
Head: Other (No frontal or maxillary sinus tenderness)
Eyes: No Conjunctival Hemorrhage
Cardiovascular: Regular Rate and S1/S2
Pulmonary: Coarse (bases)
Gastrointestinal: Soft, Non Tender and Non Distended
Extremities: Edema (LUE)
Wound: Other (sternal dressing dry)
Neurological: Awake and Alert
Objective Data
Lab Data
Lab Results
03/18/25 04:02
03/18/25 04:02
PT 18.5 Sec (11.4-14.6) H 03/14/25 04:33
INR 1.52 03/14/25 04:33
APTT Cancelled 03/17/25 20:00
Estimated Creat Clear 30 ml/min 03/18/25 04:02
Lactic Acid 1.6 mmol/L (0.7-2.0) 03/15/25 18:28
Total Bilirubin 2.5 mg/dl (0.2-1.3) H 03/18/25 04:02
AST 52 U/L (17-59) 03/18/25 04:02
ALT 30 U/L (0-50) 03/18/25 04:02
Alkaline Phosphatase 195 U/L (38-126) H 03/18/25 04:02
Most recent labs reviewed.
Micro Results:
03/17/25 10:46 Blood Culture - Pending
Blood/Venous
03/17/25 09:56 Blood Culture - Pending
Blood/Venous
03/17/25 09:16 Urine Culture - Pending
Urine
03/12/25 11:30 Respiratory Culture - Final
Endotracheal Enterobacter amnigenus BG2 2
Gram Stain - Final
03/12/25 11:30 Legionella Urinary Antigen - Final
Urine Negative for Legionella pneumophila Serogroup 1 antigen.
A negative result does not rule out the possiblity of
Legionella infection due to other serogroups or species of
Legionella. Clinical correlation is recommended.
Streptococcus pneumoniae Antigen (M - Final
Negative for Streptococcus pneumoniae antigen.
A negative result does not exclude infection with
Streptococcus pneumoniae. Clinical correlation is
recommended.
03/11/25 15:48 Nasal Screen MRSA (PCR) - Final
Nose MRSA not detected - performed by PCR methodology.
03/15/25 Peripheral Vasc US: No evidence of deep venous thrombosis of the left upper extremity.
03/15/25 CXR: Bibasilar opacification most likely representing subsegmental atelectasis and small bilateral pleural effusions.
03/07/25 CTA chest/a/p: There is an aortic dissection extending throughout the aorta beginning at the root and extending to the aortic bifurcation consistent with [place] type A dissection.The aortic branch arteries appear to be supplied off the
true lumen. There is associated moderate narrowing of the descending thoracic aorta and proximal abdominal aorta. Additionally there is narrowing at the proximal right renal artery with associated asymmetrically decreased perfusion of the right
kidney.
--- NOTE | 2025-03-18 09:38 | PTCARENOTE ---
Received pt from chief of internal medicine RN at 0700; pt AAOx2 and pleasant; A-flutter on monitor and VSS; Right Double lumen PICC patent; Epicardial A/V wires insulated; lungs diminished and coarse; CT x2 to -20 wall suction no air leak and no crepitus noted;
hypoactive bowel sounds; Tube Feedings infusing through right nare Dobbhoff; +2 generalized edema, +3 left upper extremity edema and +3 scrotal edema; Doppler pulses present; all surgical sites C/D/I; see nursing documentation for further details.
0845 CTNP at bedside, CT x2 removed, A/V wires cut by CTNP and a new Idalmis dressing placed on sternum. Pt Cierra lifted to chair and speech therapy at bedside for repeat FEES test.
[2025-03-18] MEDS: SENOKOT 8.6 MG TUBE (09:45)
--- NOTE | 2025-03-18 11:06 | PTOTSP ---
Speech Therapy FEES:
Patient presents with moderate pharyngeal dysphagia. Silent aspiration observed with thin liquids and upper laryngeal penetration observed with mildly thick liquids, moderately thick liquids, and puree. A chin tuck was ineffective, resulting in
increased amount of penetration. There was diffuse pharyngeal residue, which increased as viscosity increased. Performance on this assessment is a slight improvement compared to initial FEES on 03/15. There was less aspiration, however aspiration
was silent (question if related to small vs gross amount previously aspirated). Given patient remains at high risk for decompensation and was unable to clear penetrated material, recommend to continue NPO with non-oral means of nutrition.
Recommend:
1. NPO, continue non-oral means of nutrition
2. Medications non-oral
3. ARHP via sparing ice chips, following oral care every hour with supervision
4. Oral care 3x/daily via suction toothbrush
5. ASSESSMENT DIRECTOR to follow
--- NOTE | 2025-03-18 12:46 | PTCARENOTE ---
Assessment unchanged; A-fib on monitor and VSS; Tube feedings increased per CTNP order; family at bedside and updated.
[2025-03-18] MEDS: NOVOLOG FLEXPEN-LOW RESISTANCE 1 UNITS SC ×2 (13:03→17:36)
[2025-03-18 13:04] LABS: Glucose - Point of Care 187 mg/dl (70-99)
--- NOTE | 2025-03-18 14:11 | CON.GI ---
Addendum entered and electronically signed by Tyrel Sanchez MD 03/18/25 16:11:
Patient seen and examined, agree with nurse practitioner note. The patient is a 74-year-old male with past medical history as noted with complicated hospital course with multiple CT surgeries for CABG, valve repair, dissection, tamponade. He is
now overall been doing much better, off of pressors, though unfortunately still has oropharyngeal dysphagia. His evaluation with speech was slightly improved though still with silent aspiration. Prior to his hospitalization he had no significant
GI issues and denies any previous dysphagia, nausea, vomiting. He has been tolerating his tube feeds without difficulty. On exam he has no significant abdominal tenderness. He has a midline dressing.
1. Oropharyngeal dysphagia: Secondary to prolonged hospitalization, tolerating Dobbhoff feedings without difficulty. I had extensive discussion with him and his about the possibility of PEG tube, goals risks and benefits. Tentatively may
consider PEG tube on Friday, pending his clinical course. Given that his speech eval was improved, if he still has continued improvement may repeat on Friday prior to placing PEG tube as we discussed this would need to be in place for 2 months
regardless of his swallowing function return. We discussed the risks of dislodging PEG tube within the first couple of weeks, though his mentation is improved overall. We discussed holding Eliquis over the weekend, possibly starting heparin on
Friday if PEG is anticipated in the next day or 2 after that.
Original Note:
Consultation
-
Date/Time Consultation Requested: 03/18/25 1340
Date/Time Consultation Performed: 03/18/25 1410
Requesting Provider: KRISHNA Hewitt
Performing Provider: KRISHNA Manriquez, Bear Sanchez MD
Reason for Consultation: peg evaluation
Medical History
Chief Complaint / HPI
Chief Complaint: dysphagia
History of Present Illness:
Pt is a 74yo with hx prior appe, neck lipoma excision, TA colon polyps, afib on eliquis, NSVT, CAD with CABG x4, MV repair, TV repair, MAZE, and EVI exclusion on 02/16/25. Pt then returned 03/04 with concern for worsening shortness of breath
and concern for Type A aortic dissection with repair, cardiogenic shock, with return to OR for multiple procedures and Impella placement, noted encephalopathy, enterobacter PNA with need for Vent support, continued leukocytosis with ID follow ,
anemia, IRON with temporary CRRT with continued renal follow and DHT placement for nutrition as he was also noted with moderate pharyngeal dysphagia and concern for silent aspiration. He was seen by speech 03/18 with slight improvement but continued
silent aspiration and recommended continued NPO status. Pt has had DHT in place and tolerating tube feeds. Asked to see for PEG tube. Pt currently with some confusion per staff but in review with family no chronic GI issue with nausea, vomiting,
abdominal pain, diarrhea, constipation or bleeding. Pt with hx several colonoscopy in past with Dr. Bauman last 06/2024- with TA and HP polyps, diverticulosis. Labs otherwise noted with mild elevated bili and alk phos with now normalized AST/ALT
with elevation on admission.
Past Medical History
Past Medical History: Arrhythmias (afib, NSVT), CAD, CHF, HTN, Hypercholesterolemia, Hypothyroidism and Other (colon polyps)
Past Surgical History: Appendectomy, Cardiac (CABG x4, MV repair, TV repair, MAZE, and EVI exclusion on 02/16/25 ) and Other (neck lipoma excision)
Social History
Tobacco: Former Smoker
Alcohol: None
Drug: None
Personal:
Living: With Family
Employment: Retired
Family History
Family History: Other (no family hx Gi malignancies )
Allergies / Home Medications
Allergy/AdvReac Type Severity Reaction Status Date / Time
No Known Allergies Allergy Verified 02/10/25 11:39
�Medication �Instructions �Recorded
levothyroxine 150 mcg tablet 150 mcg PO DAILY Thyroid 12/11/23
L.acidophilus-B.animalis-B.bifidum 1 cap PO DAILY Supplement 10/22/24
25 billion cell-FOS 100 mg capsule
(Probiotic Complex)
apixaban 5 mg tablet (Eliquis) 5 mg PO BID Blood Clot 10/22/24
Prevention/Tx
multivitamin 1 tab PO DAILY Supplement 10/22/24
atorvastatin 40 mg tablet 40 mg PO QPM #90 tabs 02/04/25
polyethylene glycol 3350 17 4 g PO DAILY PRN constipation 02/10/25
gram/dose oral powder (Miralax)
aspirin 81 mg chewable tablet 81 mg PO DAILY Blood Clot 02/17/25
Prevention/Tx
acetaminophen 325 mg tablet 650 mg (2 x 325 mg) PO Q6HPRN PRN 02/22/25
mild pain,headache,temp >101F #0
tabs
dapagliflozin propanediol 10 mg 10 mg PO DAILY Heart Failure #60 02/22/25
tablet tabs
valsartan 40 mg tablet 40 mg PO DAILY Heart 02/22/25
disease/condition #60 tabs
Review of Systems
-
History Source: Patient and Family
Constitutional: Reports Fatigue
EENT: Reports No Symptoms
Respiratory: Reports No Symptoms
Cardiac: Reports No Symptoms
Abdomen/GI: Reports No Symptoms
: Reports No Symptoms
Neurological: Reports Weakness and Other (confusion per staff )
Endocrine: Reports No Symptoms
Hematologic/Lymphatic: Reports No Symptoms
Vital Signs
Temp Pulse Resp BP Pulse Ox
98.7 F 96 18 109/71 91
03/18/25 12:00 03/18/25 12:40 03/18/25 12:00 03/18/25 12:00 03/18/25 12:40
Physical Exam
Exam
General: Other (awake and alert forgetfulness to some questions but appropriate )
HEENT: Normocephalic
Respiratory: Other (chest tubes now out )
Cardiac: Other (large chest wound dressing in place)
GI: Soft, Non Tender and Non Distended
Rectal: Deferred by Provider
Musculoskeletal: No Clubbing and No Cyanosis
Neuro: Awake, Alert and Other (forgetful at times )
Psych: Calm
Results
WBC 28.4 10^3/uL (4.8-10.8) H 03/18/25 04:02
Hgb 9.2 g/dL (13.0-18.0) L 03/18/25 04:02
Hct 30.7 % (39.0-52.0) L 03/18/25 04:02
MCV 103.0 fL (80.0-94.0) H 03/18/25 04:02
Plt Count 247 10^3/uL (130-400) 03/18/25 04:02
Absolute Neuts (auto) 21.8 10^3/uL (1.4-6.5) H 03/17/25 04:15
PT 18.5 Sec (11.4-14.6) H 03/14/25 04:33
INR 1.52 03/14/25 04:33
APTT Cancelled 03/17/25 20:00
Sodium 148 mmol/L (135-145) H 03/18/25 04:02
Potassium 3.5 mmol/L (3.5-5.1) 03/18/25 04:02
Chloride 113 mmol/L (98-107) H 03/18/25 04:02
Carbon Dioxide 35 mmol/L (22-30) H 03/18/25 04:02
BUN 80 mg/dl (9-20) H 03/18/25 04:02
Creatinine 2.3 mg/dL (0.7-1.3) H 03/18/25 04:02
Calcium 8.3 mg/dl (8.4-10.2) L 03/18/25 04:02
Total Bilirubin 2.5 mg/dl (0.2-1.3) H 03/18/25 04:02
AST 52 U/L (17-59) 03/18/25 04:02
ALT 30 U/L (0-50) 03/18/25 04:02
Alkaline Phosphatase 195 U/L (38-126) H 03/18/25 04:02
Diagnostic Image Results:
03/17/25 CT Chest/abd/pel Wo Iv Cont
Postsurgical changes. Sternal wires and fusion plates are present. No evidence of sternal dehiscence. No obvious bony destruction to suggest osteomyelitis.
No focal soft tissue collection is identified to suggest soft tissue abscess.
No retrosternal anterior mediastinal focal defined fluid collection is identified to indicate drainable abscess.
Small to moderate right pleural effusion. Trace left pleural effusion. Moderate confluent consolidation at the posterior lung bases, atelectasis versus pneumonia.
No right-sided pneumothorax. Tiny 12 mm pneumothorax focus in the anteromedial left lung apex.
Trace ascites. No focal collection or abscess. No free air. No bowel obstruction. No obstructive uropathy.
Mild diverticulosis without acute diverticulitis.
Third spacing.
Prior GI Procedures:
EGD: none
Colonoscopy: Dr. Bauman last 06/2024- with TA and HP polyps, diverticulosis.
Assessment / Plan
-
Pt is a 74yo with hx prior appe, neck lipoma excision, TA colon polyps, afib on eliquis, NSVT, CAD with CABG x4, MV repair, TV repair, MAZE, and EVI exclusion on 02/16/25. Pt then returned 03/04 with concern for worsening shortness of breath
and concern for Type A aortic dissection with repair, cardiogenic shock, with return to OR for multiple procedures and Impella placement, noted encephalopathy, enterobacter PNA with need for Vent support, continued leukocytosis with ID follow ,
anemia, IRON with temporary CRRT with continued renal follow and DHT placement for nutrition as he was also noted with moderate pharyngeal dysphagia and concern for silent aspiration. He was seen by speech 03/18 with slight improvement but continued
silent aspiration and recommended continued NPO status. Pt has had DHT in place and tolerating tube feeds. Asked to see for PEG tube. Pt currently with some confusion per staff but in review with family no chronic GI issue with nausea, vomiting,
abdominal pain, diarrhea, constipation or bleeding. Pt with hx several colonoscopy in past with Dr. Bauman last 06/2024- with TA and HP polyps, diverticulosis. Labs otherwise noted with mild elevated bili and alk phos with now normalized AST/ALT
with elevation on admission.
-moderate pharyngeal dysphagia and concern for silent aspiration
- CABG x4, MV repair, TV repair, MAZE, and EVI exclusion on 02/16/25
-Type A aortic dissection with repair
-s/p impella
-s/p VDRF
-afib on Eliquis
-s/p cardiogenic shock
-persistent leukocytosis
-anemia
-elevated LFT's on admission now improving
-PNA
-IRON s/p CRRT
-NSVT
-hx colon polyps
-prior appe
-neck lipoma excision
PLAN:
asked to for peg
reviewed speech eval as noted
cont current tube feeds for nutrition
Dr. Sanchez reviewed risk/benefit of peg with pt and spouse including risk of bleeding, infection, perforation, etc
currently on Eliquis- Dr. Sanchez reviewed with Ct surgery for hold will need 48 hour hold prior to procedure -- if neede can transition to heparin gtt with hold prior to procedure
ok to continued ASA
plan for continued speech follow and repeat FEES early next week and consider peg on 03/22
if continued issue patient and family agreeable
ID continued with follow for leukocytosis with slow increase
LFT's improving
-
-
Thank you for consultation and allowing me to participate in the patient's care. Please call the employment consultant GI physician during the after hours with any questions or concerns.
--- NOTE | 2025-03-18 15:06 | W.PN.NEPH.PH ---
Today's Communication / Plan
-
Follow BMP
Assessment/Plan
-
Impression:
Acute type A Aortic dissection with involvement of bilateral coronary ostia and circumferentially around the root with operative repair on 03/08/25
Acute kidney injury
Postoperative cardiogenic shock now on inotropic support
History of CABG x 4 mitral valve repair tricuspid valve repair maze and EVI exclusion on 02/16/2025
Status post Impella placement on 03/08/2025
Lactic acidosis 12.4
Vent dependent respiratory failure
NSVT
Ischemic cardiomyopathy with EF of 45 to 50%
Atrial fibrillation
History of hypertension
Plan:
Follow BMP
Sodium improving slowly with free water flushes
Overall volume status appears to be stable
Continue potassium repletion
He is making slow steady progress
-
-
Date of Service: March 18, 2025
CC / HPI / ROS
-
Chief Complaint:
aortic dissection
IRON
History of Present Illness:
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
BP stable off pressors
IRON/creatinine stable at 2.3
Nonoliguric without diuretics
CRRT off 03/11/2025, CVC removed.
hgb stable low 9.2
Sodium down to 148 with increased free water flushes
critically ill in CVICU on mid flow O2
Review of Systems:
non oliguric
No chest pain
Labs
-
Labs:
WBC 28.4 10^3/uL (4.8-10.8) H 03/18/25 04:02
RBC 2.98 10^6/uL (4.70-6.10) L 03/18/25 04:02
Hgb 9.2 g/dL (13.0-18.0) L 03/18/25 04:02
Hct 30.7 % (39.0-52.0) L 03/18/25 04:02
Plt Count 247 10^3/uL (130-400) 03/18/25 04:02
Sodium 148 mmol/L (135-145) H 03/18/25 04:02
Potassium 3.5 mmol/L (3.5-5.1) 03/18/25 04:02
Chloride 113 mmol/L (98-107) H 03/18/25 04:02
Carbon Dioxide 35 mmol/L (22-30) H 03/18/25 04:02
BUN 80 mg/dl (9-20) H 03/18/25 04:02
Creatinine 2.3 mg/dL (0.7-1.3) H 03/18/25 04:02
eGFR 28.89 03/18/25 04:02
Glucose 132 mg/dl (70-99) H 03/18/25 04:02
Calcium 8.3 mg/dl (8.4-10.2) L 03/18/25 04:02
Phosphorus Cancelled 03/12/25 20:00
Gvv-V-Ydjhognkhky Pept 2970 pg/ml 03/04/25 15:44
Albumin 2.5 g/dl (3.5-5.0) L 03/18/25 04:02
Physical Exam
-
Vital Signs:
Vital Signs
Temp Pulse Resp BP Pulse Ox
98.7 F 95 14 109/71 95
03/18/25 12:00 03/18/25 14:21 03/18/25 14:21 03/18/25 12:00 03/18/25 14:21
Cardiovascular:: Regular rate and rhythm
Respiratory:: Bilateral: Coarse
Lung Excursion:: Normal
Abdomen:: Nontender and Soft
Bowel Sounds:: Normal
Extremity Edema:: +2: Bilateral:
--- NOTE | 2025-03-18 15:36 | PTCARENOTE ---
A-fib on monitor and VSS; assessment unchanged; pt mohinder lifted back to bed; CTNP at bedside VIK dressing changed; family at bedside and updated.
[2025-03-18] MEDS: LIPITOR 40 MG TUBE (17:25)
[2025-03-18 17:36] LABS: Glucose - Point of Care 153 mg/dl (70-99)
[2025-03-18] MEDS: NSS IV (19:10)
[2025-03-18] MEDS: SENOKOT TUBE (19:40)
--- NOTE | 2025-03-18 20:15 | PTCARENOTE ---
Patient received from RN @ 1900. Patient lying in bed w/ call bustillos in reach. Patient AOx2 to self and month. Patient disoriented to place. Patient states they are in [place], [place]. A. Fib on monitor. BP 106/63 HR 105. Radial and pedal pulses
present. Heart sounds audible. +2 generalized edema. +3 edema noted in left arm and scrotum. POX 94% RA. IS 500-750. Lungs diminished in bases and course bilaterally. Wet non-productive cough noted after IS. Bowel sounds present and
normoactive. Dobbhoff in right nare patent. Patient voiding geovanna color urine through male purewick. Right double lumen PICC patent and intact. Bilateral heel foams in place. Left leg Aquacel C/D/I w/ scant old drainage outlined. Right and
left groin puncture C/D/I. CT dressing C/D/I w/ no drainage. Stage 1 sacral pressure injury noted. Turning q2 hours and as needed. Sternal VIK dressing C/D/I. See worklist for more details.
[2025-03-18] MEDS: LOPRESSOR TUBE (20:38)
[2025-03-18] MEDS: LOPRESSOR 25 MG PO (20:42)
[2025-03-18 23:09] LABS: Glucose - Point of Care 111 mg/dl (70-99)
[2025-03-18 23:31] LABS: Blood Urea Nitrogen 84 mg/dl (9-20); Calcium 8.4 mg/dl (8.4-10.2); Carbon Dioxide 33 mmol/L (22-30); Chloride 116 mmol/L (98-107); Estimated Creatinine Clearance 30 ml/min; Glucose 138 mg/dl (70-99); Magnesium 2.5 mg/dl (1.6-2.3); Potassium 4.2 mmol/L (3.5-5.1); Sodium 152 mmol/L (135-145); eGFR 28.89
[2025-03-19] VITALS (28 sets, daily range): BP systolic 106–128; BP diastolic 61–84; PULSE 68–75; O2SAT 94; BMI 28.7
--- NOTE | 2025-03-19 00:13 | PTCARENOTE ---
Patient reassessed. A. Fib on monitor. BP 119/72 HR 95 POX 92% RA. Labs obtained due to 3 beat run of VT.
[2025-03-19 03:49] LABS: Hematocrit 30.6 % (39.0-52.0); Hemoglobin 9.3 g/dL (13.0-18.0); Mean Corp Hgb Conc. 30.4 g/dL (33.0-37.0); Mean Corpuscular Volume 104.1 fL (80.0-94.0); Platelet Count 245 10^3/uL (130-400); Red Cell Dist. Width 21.5 % (11.5-14.5)
[2025-03-19 04:09] LABS: Blood Urea Nitrogen 84 mg/dl (9-20); Calcium 8.6 mg/dl (8.4-10.2); Carbon Dioxide 35 mmol/L (22-30); Chloride 114 mmol/L (98-107); Estimated Creatinine Clearance 31 ml/min; Glucose 129 mg/dl (70-99); Magnesium 2.6 mg/dl (1.6-2.3); Potassium 4.1 mmol/L (3.5-5.1); Sodium 148 mmol/L (135-145); eGFR 30.47
--- NOTE | 2025-03-19 05:19 | PTCARENOTE ---
Patient reassessed. No changes from previous assessment. VSS.
[2025-03-19] MEDS: TYLENOL 975 MG TUBE ×3 (06:15→21:54)
[2025-03-19] MEDS: SYNTHROID 150 MCG TUBE (06:15)
[2025-03-19 06:26] LABS: Glucose - Point of Care 105 mg/dl (70-99)
[2025-03-19] MEDS: NOVOLOG FLEXPEN-LOW RESISTANCE SC ×2 (06:26→11:50)
[2025-03-19] MEDS: SENOKOT TUBE ×2 (08:07→19:51)
[2025-03-19] MEDS: MIRALAX TUBE (08:07)
[2025-03-19] MEDS: LOW STRENGTH ASPIRIN 81 MG TUBE (08:26)
[2025-03-19] MEDS: ROBITUSSIN 200 MG TUBE ×4 (08:26→21:54)
[2025-03-19] MEDS: PACERONE 200 MG TUBE ×3 (08:26→21:54)
[2025-03-19] MEDS: PROTONIX IV 40 MG IV (08:26)
[2025-03-19] MEDS: LOPRESSOR 37.5 MG TUBE ×2 (08:26→20:55)
[2025-03-19] MEDS: NSS (PRESERVATIVE FREE) 10 ML IV (08:26)
[2025-03-19] MEDS: KLOR-CON 40 MEQ PO ×2 (08:27→20:44)
--- NOTE | 2025-03-19 08:30 | PTCARENOTE ---
Patient received from night baker RN; AAOx1 - disoriented to place, year, and situation; Slow speech and confused at times; Flat affect and forgetful; VSS; SR with accelerated junctional rhythm and afib on monitor; Edema present; DP pulses present
with doppler and +2 radial pulses; Shallow respirations; Non-productive, occasional cough; SpO2 94-98% on RA; Rhonchi present throughout right lung and left base, lungs diminished in B/L bases; Dobhoff present in right nare at 73 cm with Osmolite
1.2 infusing at 30 ml/hr with 50 ml flushes; Diarrhea present; Malewick draining geovanna, clear urine; Surgical sites, pressure injuries, and other wounds intact; Right PICC line in place - flushing well and good blood return; See nursing
documentation for further information
[2025-03-19] MEDS: VENTOLIN NEBULES 2.5 MG INH ×4 (08:44→19:21)
[2025-03-19] MEDS: MUCOMYST 20% 4 ML INH ×2 (08:44→19:21)
--- NOTE | 2025-03-19 08:51 | W.PN.GI.CBS2 ---
Today's Communication / Plan
-
Please see assessment and plan for details.
Assessment / Plan
-
1. Oropharyngeal dysphagia: Status post prolonged intubation, unable to have adequate oral intake, with silent aspiration, though was slightly improved on last speech evaluation. Again, tentatively plan for PEG tube on Friday, though if has more
significant improvement could repeat speech evaluation prior to placement.
Subjective
Subjective
Date of Service: March 19, 2025
Patient feeling okay, no new events. Has not pulled the Dobbhoff tube, denies abdominal pain.
Objective
Data Reviewed
Laboratory Data:
Laboratory Results
03/19/25 03:34
03/19/25 03:34
Laboratory Results
PT 18.5 Sec (11.4-14.6) H 03/14/25 04:33
INR 1.52 03/14/25 04:33
APTT Cancelled 03/17/25 20:00
Phosphorus Cancelled 03/12/25 20:00
Magnesium 2.6 mg/dl (1.6-2.3) H 03/19/25 03:34
Total Bilirubin 2.5 mg/dl (0.2-1.3) H 03/18/25 04:02
AST 52 U/L (17-59) 03/18/25 04:02
ALT 30 U/L (0-50) 03/18/25 04:02
Alkaline Phosphatase 195 U/L (38-126) H 03/18/25 04:02
Vital Signs and I&O:
Vital Signs
Temp Pulse Resp BP Pulse Ox
98.5 F 92 18 110/81 94
03/19/25 08:12 03/19/25 08:33 03/19/25 08:33 03/19/25 08:00 03/19/25 08:33
I&O
03/18/25 03/19/25 03/20/25
06:59 06:59 05:59
Intake Total 1970.1 / 2029.1 1020 / 1020
Output Total 2875 / 2975 1400 / 1400
Balance -904.9 / -944.9 -380 / -380
Physical Exam
Physical Exam
General: NAD
Abdomen: normal bowel sounds, soft, no tenderness, no masses or bruits, no ascites
[2025-03-19] MEDS: CIPRO 500 MG PO ×2 (09:17→20:44)
--- NOTE | 2025-03-19 09:30 | W.PN.ID1 ---
Date of Service
Date of Service: March 19, 2025
Today's Communication
Continue antibiotics for today.
Assessment / Plan
# Encephalopathy
- improving off cefepime
# Enterobacter pneumonia
- O2 requirement decreasing
- s/p 7d cefepime
- continue cipro 500mg NGT/po q12 through 03/20 (10 day total abx course)
- Aspiration precaution.
# Leukocytosis
- continue to trending up
- unclear source to date; ?reactive
- no diarrhea, afebrile, Neg DVT LUE
- 03/17 CT chest/abd/pelvis: no source to explain elev wbc
- Buenrostro/chest tubes/lines removed
- Check UA 1+LE, 11-15 wbc, Ucx: no growth
- blood cx's x 2 pending; NGTD
- Continue to trend WBC.
# Type A aortic dissection
- s/p repair, OR 03/07, 03/08, 03/09, 03/11
# s/p cardiogenic shock
# IRON
#Conditions present on admission
Hypertension
Dyslipidemia
Atrial fibrillation s/p MAZE, EVI exclusion 02/16/25
CAD status post CABG x 4
Mitral valve repair 02/16/25
Tricuspid valve repair 02/16/25
HFrEF
Hypothyroidism
Chief Complaint
-: Pneumonia
Subjective / Review of Systems
Review of Systems: No Fever and No Chills
Vital Signs / Physical Exam
Vital Signs
Vital Signs
Temp Pulse Resp BP Pulse Ox
98.5 F 82 18 115/82 96
03/19/25 08:12 03/19/25 09:20 03/19/25 08:33 03/19/25 09:00 03/19/25 09:10
Physical Exam
Constitutional: Comfortable, Chronically Ill and Non-toxic
Eyes: No Conjunctival Hemorrhage
Cardiovascular: Regular Rate and S1/S2
Pulmonary: Coarse (bases) and Non Labored
Gastrointestinal: Soft, Non Tender and Non Distended
Extremities: Edema (4+ LUE; 2+ bilateral lower extremities)
Wound: Other (sternal dressing dry)
Neurological: Awake and Alert
Objective Data
Lab Data
Lab Results
03/19/25 03:34
03/19/25 03:34
PT 18.5 Sec (11.4-14.6) H 03/14/25 04:33
INR 1.52 03/14/25 04:33
APTT Cancelled 03/17/25 20:00
Estimated Creat Clear 31 ml/min 03/19/25 03:34
Lactic Acid 1.6 mmol/L (0.7-2.0) 03/15/25 18:28
Total Bilirubin 2.5 mg/dl (0.2-1.3) H 03/18/25 04:02
AST 52 U/L (17-59) 03/18/25 04:02
ALT 30 U/L (0-50) 03/18/25 04:02
Alkaline Phosphatase 195 U/L (38-126) H 03/18/25 04:02
Most recent labs reviewed.
Micro Results:
03/17/25 10:46 Blood Culture - Preliminary
Blood/Venous No Growth in 24 hours- Final report to follow
03/17/25 09:16 Urine Culture - Final
Urine NO GROWTH
03/17/25 09:56 Blood Culture - Preliminary
Blood/Venous No Growth in 24 hours- Final report to follow
03/12/25 11:30 Respiratory Culture - Final
Endotracheal Enterobacter amnigenus BG2 2
Gram Stain - Final
03/12/25 11:30 Legionella Urinary Antigen - Final
Urine Negative for Legionella pneumophila Serogroup 1 antigen.
A negative result does not rule out the possiblity of
Legionella infection due to other serogroups or species of
Legionella. Clinical correlation is recommended.
Streptococcus pneumoniae Antigen (M - Final
Negative for Streptococcus pneumoniae antigen.
A negative result does not exclude infection with
Streptococcus pneumoniae. Clinical correlation is
recommended.
03/11/25 15:48 Nasal Screen MRSA (PCR) - Final
Nose MRSA not detected - performed by PCR methodology.
Imaging:
03/19/2025 CXR (portable): interval removal of bilateral chest tubes. No evidence for significant pneumothorax.
03/15/25 Peripheral Vasc US: No evidence of deep venous thrombosis of the left upper extremity.
03/15/25 CXR: Bibasilar opacification most likely representing subsegmental atelectasis and small bilateral pleural effusions.
03/07/25 CTA chest/a/p: There is an aortic dissection extending throughout the aorta beginning at the root and extending to the aortic bifurcation consistent with Moses type A dissection.The aortic branch arteries appear to be supplied off the
true lumen. There is associated moderate narrowing of the descending thoracic aorta and proximal abdominal aorta. Additionally there is narrowing at the proximal right renal artery with associated asymmetrically decreased perfusion of the right
kidney.
Care Review
Plan reviewed with: Physician (CT Surgery)
--- NOTE | 2025-03-19 10:53 | W.PN.CD ---
Today's Communication / Plan
-
Patient sitting in chair not convinced he is getting nutrition even though he is getting it via NG tube. Possible PEG next week as outlined by GI.
-A-fib remains stable and rate controlled. Patient is on Eliquis 2.5 twice daily
Continue with supportive treatment.
GDMT as tolerated. Currently limited due to IRON.
Impression / Plan
-
Impression/Plan: 74 yo male with PMH of ICM EF 35-40%, chronic HFrEF, persistent A fib on eliquis, HTN, CAD s/p CABG x 4, MV repair, TV repair, MAZE, and EVI exclusion with Dr. Sullivan (02/16/25); admitted on 03/04/2025 with acute on chronic HFrEF,
subsequently found to have severe AR due to Coy type A aortic dissection.
#Aortic dissection
-Acute, Coy type A w/ involvement of b/l Coronary ostia and circumferentially around the root causing severe AI, distally to the Aorto-iliac bifurcation complicated by shock.
-s/p #27 valved conduit and hemiarch replacement, ligation of L and R coronary ostia as they were dissected; bypass grafting to an acute marginal and relocation of previous vein grafts onto acute marginal vein graft..
-Loss of Impella pulsatility lead to TTE guided repositioning. Patient was re-opened at the bedside, revealing clot around the right ventricle and SVG that appeared to compress both. The clot was evacuated (05/08/2025).
-Arterial bleeding was observed from the IAN bed, which was clipped and a sternal wire site which was double ligated with good hemostasis (03/08/2025).
-CI dwindled overnight, improved to 2.06. SIDING STAPLER = 0.84 Wilkes. Delphine = 0.8.
-The patient has had several episodes of hypotension, though to be due to compression of the SVG. The patient was taken to OR for placement of a ringed graft to prevent compression (03/09/2025).
-Patient returned to the OR for ligation of the IAN (persistent bleeding) and re-bypass to address the angulation of the original SVG to Diag, which is thought to be leading to his multiple hypotensive episodes (03/09/2025).
-s/p chest closure and Impella removal.
-Encourage incentive spirometry.
-PT/OT/ambulation.
CAD s/p CABG x 4, MV repair, TV repair, MAZE, and EVI exclusion with Dr. Sullivan (02/16/25)
#HFrEF/ICMO
- Ejection fraction 25 to 30% by echo 03/08/2025
-GDMT when hemodynamics will tolerate:
-Diuretics: Bumetanide gtt on hold in light of worsening creatinine.
-Beta frantz: Metoprolol tartrate 37.5 mg BID.
-ACEI/ARB/ARNi: On hold due to BP/IRON.
-MRA: On hold due to BP/IRON.
-SGLT2i: On hold due to IRON.
-ICD: Not currently indicated.
#Anemia
-Post operative,. Continue to monitor
#PNA
-Acute.
-Respiratory culture positive for Enterobacter amnigenus (Amoxicillin-R, Amoxicillin/Clavulanate-R, Ampicillin/Sulbactam-R, Cefazolin-R, Ceftriaxone-I).
-Continue cefepime per ID.
#CAD
-Chronic, stable.
-S/P CABG x 4 (MAGANA to LAD, SVG to OM1 to LPL, SVG to Diag).
-During operation for Ao dissection, the SVG graft was anastomosed to the SVG to diagonal graft and the LMCA/RCA were ligated to prevent further propagation of the dissection plane.
-The current anatomy is MAGANA to LAD, SVG from Ao graft to SVG to diagonal, sequential SVG Y-graft from diagonal graft to OM1 to LPL.
#Atrial fibrillation
-Persistent.
-Currently in NSR.
-Rate/rhythm control with amiodarone, s/p MAZE with Dr. Sullivan, 02/16/2025.
-CHADS2-Vasc = 5 (CHF, HTN, Age x2, vascular disease).
-Anti-thrombotic therapy with apixaban 2.5 mg BID, S/P LAAE (#40 AtriClip, SN [id number]) with Dr. Sullivan, 02/16/2025.
#IRNO
-Cr 2.2.
-Nephrology following.
-Clear evidence of total body volume overload, but hypoalbuminemia and hypernatremia all suggest intravascular depletion (poor oncotic pressure).
#Acute liver injury
-Severe, multifactorial.
-LFTs normalized .
Critical Care Time = 31 minutes.
Subjective/Interval History:
Transfused one unit of PRBC's yesterday with appropriate response.
Transitioned to apixaban 2.5 mg BID (renal function, age).
Weight down 0.7 kg.
UA shows hematuria (4+ blood, 40-50 RBC's).
DATA:
TTE, 03/04/2025:
SUMMARY
1. Moderately reduced LV systolic function. Ejection fraction is 35-40%. Global hypokinesis.
2. S/p mitral valve repair with peak/mean gradients of 15/5 mmHg. Trace mitral valve regurgitation.
3. Moderate/severe aortic regurgitation. PHT approx 250 msec.
4. S/p tricuspid valve repair with mean gradient of 2 mmHg. Mild tricuspid regurgitation. Estimated PASP 38 mmHg, assuming RAP 8 mmHg. Mildly elevated PASP.
5. Compared to 02/19/25: LVEF is stable in 35-40% range, mitral valve and tricuspid valve repairs are stable; aortic regurgitation has progressed from mild/moderate to moderate/severe.
SAAJN, 03/07/2025:
SUMMARY
1. There is a Coy type A DeBakey class I aortic dissection present.
2. Trileaflet aortic valve. Severe aortic regurgitation due to prolapse of the left vs non coronary cusp and aortic dissection.
3. Low normal ventricular systolic function. LVEF 45-50%.
4. S/p tricuspid valve repair. Trace residual tricuspid regurgitation.
5. S/p mitral valve repair. Trace residual mitral regurgitation.
6. Dr. Sullivan (CT surgery) notified of findings at time of study.
CT surgery, 03/07/2025:
Procedure(s) Performed:
1. Ultrasound-guided access using Seldinger technique 2 the right common femoral artery and vein with percutaneous access using a 25 Spanish femoral venous cannula
2. Redo sternotomy with extensive adhesiolysis (Modifier 22 for additional dissection time of 1 hour)
3. Direct aortic cannulation using ultrasound and Seldinger technique with a SAJAN guidance verifying true lumen access
4. Moderate hypothermic circulatory arrest with antegrade cerebral perfusion
5. Hemiarch ascending aortic replacement
6. Aortic root replacement using a 27 mm valved conduit
7. Ligation of left and right coronary ostia as they were dissected coronary bypass grafting to an acute marginal
8. Relocation of previous vein grafts onto this acute marginal vein graft
9. Placement of temporary atrial ventricular pacing wires
10. Transesophageal echocardiography
11. Temporary chest packing, open chest.
Impella Placement, 03/08/2025:
Procedure(s) Performed:
1. The temporary dressing over top of the open chest was removed
2. Placement of atrial pacing wires
3. Anastomosis of a 10 mm straight tube graft off of the ascending aortic graft, graft to graft anastomosis
4. Graft tunneled to the left supra clavicular region between the strap muscles
5. Placement of a 5.5 direct aortic Impella LVAD
6. Chest closure in usual fashion
TTE, 03/08/2025:
SUMMARY
1. TDS.
2. In limited views, left ventricle appears normal sized with severely reduced systolic function. Left ventricle ejection fraction is 25-30% by visual estimation. Global hypokinesis. S/p Impella 5.5 insertion which appears to be appropriately
placed.
3. In limited views right ventricle appears normal sized with mildly reduced systolic function. Right ventricle does appear to expand in diastole.
4. Limited valvular interrogation.
5. Compared to SAJAN earlier in day, overall, no significant change.
Bedside Rexploration, 03/08/2025:
Procedure: Emergency bedside reopening of chest and the loculation of clot ligation of IAN which was the bleeding source, repacking with 1 vaginal pack and Kerlix and replacement of new chest tubes
CT surgery re-exploration, 03/09/2025 (morning):
PROCEDURES:
1. Mediastinal reexploration/irrigation and removal of packing.
2. Repositioning of proximal course of greater saphenous vein graft
with several 6-0 Prolene sutures (placed/subsequently removed).
3. Placement of 6 mm ringed PTFE graft around proximal segment of
greater saphenous vein graft .
4. Replacement of new mediastinal packing (1 vaginal pack and
partial roll of Kerlix; syringe based sternal separation).
5. Reexploration with replacement of new open chest dressing.
CT surgery re-exploration, 03/09/2025 (afternoon):
Procedure(s) Performed:
1. Reopening of temporary chest coverage.
2. Ligation of IAN.
3. Coronary artery bypass grafting x 1 (Aortic Graft to RSVG to RSVG - T-graft).
4. Open vein harvest of the left thigh.
5. Transesophageal echocardiography.
6. Repacking of chest and placement of temporary dressing.
Physical Exam
Vital Signs/Labs
Vital Signs
Temp Pulse Resp BP Pulse Ox
98.5 F 82 18 115/82 96
03/19/25 08:12 03/19/25 09:20 03/19/25 08:33 03/19/25 09:00 03/19/25 09:10
03/18/25 03/19/25 03/20/25
06:59 06:59 05:59
Actual Weight 92.9 kg 93.4 kg
03/19/25 03:34
PT 18.5 Sec (11.4-14.6) H 03/14/25 04:33
INR 1.52 03/14/25 04:33
APTT Cancelled 03/17/25 20:00
Magnesium 2.6 mg/dl (1.6-2.3) H 03/19/25 03:34
Triglycerides 111 mg/dl (10-149) 03/13/25 04:21
03/04/25
15:44
Ynn-O-Rzaflrqptdq Pept 2970
Physical Exam
Constitutional: No acute distress
Cardiovascular: Rhythm & rate is regular
Respiratory: Wheeze Absent and Rhonchi Absent
GI: Soft
Neuro/Psych: Alert
Other: Other (Sitting in chair no distress left upper extremity edema. Patient also has some edema in bilateral lower extremities)
Data Reviewed
-
Date of Service: March 19, 2025
Medical Decision Making: Reviewed Test Results
Echo: Report Reviewed by me
Medical Tests (PFT, Pathology etc): Report Reviewed by me
Labs: Labs Reviewed by me
[2025-03-19 10:55] LABS: Hematocrit 31.6 % (39.0-52.0); Hemoglobin 9.5 g/dL (13.0-18.0); Mean Corp Hgb Conc. 30.1 g/dL (33.0-37.0); Mean Corpuscular Volume 103.3 fL (80.0-94.0); Platelet Count 252 10^3/uL (130-400); Red Cell Dist. Width 21.5 % (11.5-14.5)
[2025-03-19 11:03] LABS: APTT 31.8 Sec (23.4-35.0)
[2025-03-19 11:49] LABS: Glucose - Point of Care 120 mg/dl (70-99)
[2025-03-19] MEDS: D5W 1000 IV ×2 (11:58→22:20)
[2025-03-19] MEDS: HEPARIN 25000 UNITS/250 ML IV (11:58)
--- NOTE | 2025-03-19 12:06 | W.PN.NEPH.PH ---
Today's Communication / Plan
-
D5W
Assessment/Plan
-
Impression:
Acute type A Aortic dissection with involvement of bilateral coronary ostia and circumferentially around the root with operative repair on 03/08/25
Acute kidney injury
Postoperative cardiogenic shock now on inotropic support
History of CABG x 4 mitral valve repair tricuspid valve repair maze and EVI exclusion on 02/16/2025
Status post Impella placement on 03/08/2025
Lactic acidosis 12.4
Vent dependent respiratory failure
NSVT
Ischemic cardiomyopathy with EF of 45 to 50%
Atrial fibrillation
History of hypertension
Plan:
Follow BMP
needs more free water
D5W @ 100ml/hr for now. total deficit is about 3L
Overall volume status appears to be stable
Continue potassium repletion prn
can still diurese as needed
He is making slow steady progress
-
-
Date of Service: March 19, 2025
CC / HPI / ROS
-
Chief Complaint:
aortic dissection
IRON
History of Present Illness:
CHF cardiogenic shock status post aortic dissection [employer], off dobutamine
BP stable off pressors
IRON/creatinine stable at 2.2
Nonoliguric without diuretics
CRRT off 03/11/2025, CVC removed.
hgb stable 9.5
Sodium stable at 148 with free water flushes
Review of Systems:
non oliguric
No chest pain
Labs
-
Labs:
WBC 30.6 10^3/uL (4.8-10.8) H 03/19/25 10:39
RBC 3.06 10^6/uL (4.70-6.10) L 03/19/25 10:39
Hgb 9.5 g/dL (13.0-18.0) L 03/19/25 10:39
Hct 31.6 % (39.0-52.0) L 03/19/25 10:39
Plt Count 252 10^3/uL (130-400) 03/19/25 10:39
Sodium 148 mmol/L (135-145) H 03/19/25 03:34
Potassium 4.1 mmol/L (3.5-5.1) 03/19/25 03:34
Chloride 114 mmol/L (98-107) H 03/19/25 03:34
Carbon Dioxide 35 mmol/L (22-30) H 03/19/25 03:34
BUN 84 mg/dl (9-20) H 03/19/25 03:34
Creatinine 2.2 mg/dL (0.7-1.3) H 03/19/25 03:34
eGFR 30.47 03/19/25 03:34
Glucose 129 mg/dl (70-99) H 03/19/25 03:34
Calcium 8.6 mg/dl (8.4-10.2) 03/19/25 03:34
Phosphorus Cancelled 03/12/25 20:00
Fil-M-Gwobyebiqid Pept 2970 pg/ml 03/04/25 15:44
Albumin 2.5 g/dl (3.5-5.0) L 03/18/25 04:02
Physical Exam
-
Vital Signs:
Vital Signs
Temp Pulse Resp BP Pulse Ox
98.5 F 95 16 115/82 96
03/19/25 08:12 03/19/25 11:54 03/19/25 11:54 03/19/25 09:00 03/19/25 11:54
Cardiovascular:: Regular rate and rhythm
Respiratory:: Bilateral: Coarse
Lung Excursion:: Normal
Abdomen:: Nontender and Soft
Bowel Sounds:: Normal
Extremity Edema:: +2: Bilateral:
--- NOTE | 2025-03-19 12:42 | PTCARENOTE ---
Patient stood and pivoted to bed with PT/OT and RN; Patient continuing to have large amount of diarrhea - rectal trumpet placed by RN and draining loose, brown diarrhea; Heparin infusion ordered - PTT and CBC sent prior to starting infusion; D5W
infusion started; Frequent mouth care provided by RN; Patient continually asking about eating and drinking - NPO status and aspiration precautions reinforced by RN; SpO2 down to 88% on RA following activity - SpO2 now 92-94% on 1L NC; Patient
resting comfortably in bed at this time
[2025-03-19] MEDS: LIPITOR 40 MG TUBE (17:01)
[2025-03-19] MEDS: NOVOLOG FLEXPEN-LOW RESISTANCE 1 UNITS SC (17:08)
[2025-03-19 17:09] LABS: Glucose - Point of Care 174 mg/dl (70-99)
[2025-03-19] MEDS: NSS IV (17:11)
--- NOTE | 2025-03-19 17:44 | PTCARENOTE ---
Urine specimens sent to lab as ordered; Oxygen weaned to room air; Patient transferred back to chair using mohinder lift; Patient resting comfortably in chair at this time
[2025-03-19 18:34] LABS: APTT 43.1 Sec (23.4-35.0)
--- NOTE | 2025-03-19 21:21 | PTCARENOTE ---
Patient received from RN @ 1900. Patient in chair w/ call bustillos in reach. Patient AOx2 to self and month. Patient disoriented to place. A. Fib on monitor. BP 123/77 HR 87. Radial and pedal pulses present. Heart sounds audible. +2 generalized
edema. +3 edema noted in left arm and scrotum. POX 94% RA. IS 500-750. Lungs diminished in bases and course bilaterally. Bowel sounds present and normoactive. Rectal trumpet placed for liquid stools Dobbhoff in right nare patent. Patient
voiding geovanna color urine through male purewick. Right double lumen PICC patent and intact. Bilateral heel foams in place. Left leg Aquacel C/D/I w/ scant old drainage outlined. Right and left groin puncture C/D/I. CT dressing C/D/I w/ no
drainage. Stage 1 sacral pressure injury noted. Turning q2 hours and as needed. Sternal VIK dressing C/D/I. CT dressing small serosanguineous drainage noted and changed. See worklist for more details.
--- NOTE | 2025-03-19 23:18 | PTCARENOTE ---
Patient reassessed. Patient arouses confused to place and time. Quickly reorients to place but is forgetful. A. Fib on monitor. VSS.
[2025-03-20] VITALS (27 sets, daily range): BP systolic 107–141; BP diastolic 66–98; PULSE 98; O2SAT 94; BMI 28.9
[2025-03-20] MEDS: NOVOLOG FLEXPEN-LOW RESISTANCE SC ×5 (00:15→23:48)
[2025-03-20 00:16] LABS: Glucose - Point of Care 147 mg/dl (70-99)
--- NOTE | 2025-03-20 00:43 | W.PN.CT ---
Today's Communication / Plan
-
-pod #13
-failed FEES eval. Plans for PEG tube placement on Wednesday 03/21 after speech evaluation. Eliquis is held (last dose 03/18)
-was switched from iv Heparin to Eliquis on 03/17 for a-fib. back on Heparin gtt for possible PEG
-wbc has been trending up. Cefepime was changed to Cipro by ID. Buenrostro and Cordis were dcd 03/17. Repeat blood/urine cxs pending, NTD
-pleur CTs dcd 03/18. Ostomy bag placed over R CT site for drainage
-VIK at chest incision
-NG tube placed 03/16- TF started @ 10 cc/hr with 50 cc water flush/hr, increased to goal
-follow Na - 147 today (improved from 152)
-Monitor h/h stable- 9 today
-Monitor plts 231-improving
-Monitor cr - 1.8 today (2.3 on 03/18, 2.5 on 03/17; 1.9-2.1 on 03/16)
-Current meds: amio, asa, Synthroid, PPI, SSI, atorvastatin, Lopressor 37.5 mg, cipro, heparin gtt, d5w gtt
-Elevate scrotum in light of scrotal edema
-Continued on Mucomyst.
-Wean O2 as tolerated
-Encourage use of IS/Acapella
-Cont. chest PT
-Eventual rehab placement
-appreciate everyone's input
Assessment / Plan
-
Assessment:
-S/p Emergent Redo sternotomy with extensive adhesiolysis (Modifier 22 for additional dissection time of 1 hour)/Hemiarch ascending aortic replacement/ Aortic root replacement using a 27 mm valved conduit/Ligation of left and right coronary ostia as
they were dissected coronary bypass grafting to an acute marginal/Relocation of previous vein grafts onto this acute marginal vein graft/Temporary chest packing, open chest, by Dr. Sullivan, 03/07/25, pod#13
-S/p placement of a 5.5 direct aortic Impella LVAD on 03/08/[address] Sullivan
-Cardic tamponade/ Cardiovascular collapse- s/p Emergency bedside reopening of chest and the evacuation of clot; ligation of IAN, which was the bleeding source; repacking with 1 vaginal pack and Kerlix; replacement of new chest tubes by Dr. Sullivan on
03/08/25
S/p�mediastinal�reexploration/irrigation and placement of�6mm�ringed PTFE graft around the greater�saphaenous�graft. ���S/P�Emergent�Ligation of IAN, Coronary artery bypass grafting x 1 (Aortic Graft to RSVG to RSVG - T-graft)�03/09
-S/P Washout with antibiotic solution inspection of all surgical sites and closure with wires and plates, by Dr. Sullivan, 03/11/25
-S/P Endotracheal bronchoscopy with lavage, by Dr. Carpenter, 03/07/25
-S/p Impella was weaned and d/c'd at bedside by Dr. Sullivan 03/12/25
-S/P Bronchoscopy at bedside by Dr. Sullivan 03/12/25
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
-Worsening of aortic valve insufficiency to severe secondary to dissection
-Acute on chronic congestive heart failure with volume overload secondary to new aortic valve insufficiency
-Hypertension
-Hyperlipidemia
-Hypothyroidism
-AFIB on Eliquis
-Ischemic CM
-Recent cardiac surgery over 20 days ago
-Mitral valve insufficiency status post repair
-Tricuspid insufficiency status post repair
-Coronary artery disease status post CABG
-S/P CABG x 4, MV repair, TV repair, MAZE, and EVI exclusion, Dr. Sullivan 02/16/25, Readmitted for SOB on 03/04
-Acute intraop/postop blood loss/Anemia (transfused 14u PRBC's)
-Acute intraop and postop coagulopathy (Administered 10mg Factor VII, 4 of cryo and 11 FFP ); chest packed and kept opened until 03/11/25
-Acute postop thrombocytopenia (transfused 11 {5pks} plts)
-Acute postop Pulmonary insufficiency
-Acute postop VDRF
-Acute postop Metabolic Acidosis, followed by metabolic alkalosis
-Acute postop Lactic acidosis
-IRON
-Cardiac tamponade 03/08/25
-Acute postop cardiogenic shock
-Acute postop scrotal edema
-Acute postop a-fib
-Acute postop hypernatremia
Subjective
-
Date of Service: March 20, 2025
Objective Data
-
PT 18.5 Sec (11.4-14.6) H 03/14/25 04:33
INR 1.52 03/14/25 04:33
APTT 43.1 Sec (23.4-35.0) H 03/19/25 18:12
Vital Signs
Vital Signs
Temp Pulse Resp BP Pulse Ox
98.6 F 75 15 115/69 91
03/19/25 23:00 03/20/25 00:30 03/19/25 23:00 03/20/25 00:00 03/20/25 00:10
CT Intake/Output/Weight
03/19/25 03/19/25 03/20/25
06:59 18:59 05:59
Intake Total 1860 / 1860
Output Total 650 / 1400 500 / 800 300 / 800
Balance -650 / -380 1360 / 1060 -300 / 1060
SaO2: 91
Physical Exam
-
General: Awake and Other (AAox2)
Cardiovascular: Irregular rate & rhythm and No Murmurs
Respiratory: Clear and Decreased Breath Sounds
Sternum: Stable
Incision: Clean and Intact
Extremities: Edema +1
Data Reviewed
-
Lab Results: Results Reviewed
Medications: Active Meds Reviewed
Chest X-Ray: Report Reviewed
ECG: Report Reviewed
[2025-03-20 01:37] LABS: APTT 50.9 Sec (23.4-35.0)
[2025-03-20 02:44] LABS: Hematocrit 30.4 % (39.0-52.0); Hemoglobin 9.0 g/dL (13.0-18.0); Mean Corp Hgb Conc. 29.6 g/dL (33.0-37.0); Mean Corpuscular Volume 104.1 fL (80.0-94.0); Platelet Count 231 10^3/uL (130-400); Red Cell Dist. Width 21.4 % (11.5-14.5)
[2025-03-20 03:29] LABS: Blood Urea Nitrogen 81 mg/dl (9-20); Calcium 8.1 mg/dl (8.4-10.2); Carbon Dioxide 32 mmol/L (22-30); Chloride 113 mmol/L (98-107); Estimated Creatinine Clearance 38 ml/min; Glucose 149 mg/dl (70-99); Magnesium 2.6 mg/dl (1.6-2.3); Potassium 4.1 mmol/L (3.5-5.1); Sodium 147 mmol/L (135-145); eGFR 38.77
[2025-03-20 05:39] LABS: Glucose - Point of Care 133 mg/dl (70-99)
[2025-03-20] MEDS: SYNTHROID 150 MCG TUBE (06:05)
[2025-03-20] MEDS: TYLENOL 975 MG TUBE ×3 (06:05→21:54)
--- NOTE | 2025-03-20 06:34 | PTCARENOTE ---
Patient reassessed. SR on monitor w/ PAC's. VSS. Patient states he would like to talk to his at bedside. Called 's home phone and cell phone w/ no answer. Patient agitated. Therapeutic talking used to calm patient.
[2025-03-20] MEDS: VENTOLIN NEBULES 2.5 MG INH ×4 (07:12→20:22)
[2025-03-20 08:20] LABS: APTT 82.6 Sec (23.4-35.0)
--- NOTE | 2025-03-20 08:31 | W.PN.GI.CBS2 ---
Today's Communication / Plan
-
Please see assessment and plan for details.
Assessment / Plan
-
1. Oropharyngeal dysphagia: Status post prolonged intubation, unable to have adequate oral intake, with silent aspiration, though was slightly improved on last speech evaluation. His speech has not significantly improved over the weekend,
clinically much less likely that he has improved dysphagia. Will tentatively plan PEG tube tomorrow pending his clinical status in the morning, as he does appear slightly more tachypneic this morning. Will hold tube feedings with at midnight and
heparin at 4 AM.
Subjective
Subjective
Date of Service: March 20, 2025
No new events. Patient denies any new complaints, tolerating Dobbhoff Tube feedings without difficulty. He does appear slightly more tachypneic this morning, though pulse ox around 90 to 95% on room air.
Objective
Data Reviewed
Laboratory Data:
Laboratory Results
03/20/25 02:36
03/20/25 02:36
Laboratory Results
PT 18.5 Sec (11.4-14.6) H 03/14/25 04:33
INR 1.52 03/14/25 04:33
APTT 82.6 Sec (23.4-35.0) H 03/20/25 07:24
Phosphorus Cancelled 03/12/25 20:00
Magnesium 2.6 mg/dl (1.6-2.3) H 03/20/25 02:36
Total Bilirubin 2.5 mg/dl (0.2-1.3) H 03/18/25 04:02
AST 52 U/L (17-59) 03/18/25 04:02
ALT 30 U/L (0-50) 03/18/25 04:02
Alkaline Phosphatase 195 U/L (38-126) H 03/18/25 04:02
Vital Signs and I&O:
Vital Signs
Temp Pulse Resp BP Pulse Ox
98.4 F 87 18 141/81 92
03/20/25 06:00 03/20/25 07:17 03/20/25 07:17 03/20/25 05:00 03/20/25 07:17
I&O
03/19/25 03/20/25 03/21/25
06:59 05:59 06:59
Intake Total 1020 / 1020 2083 / 2083
Output Total 1400 / 1400 1500 / 1500
Balance -380 / -380 584 / 584
Physical Exam
Physical Exam
General: NAD
Abdomen: normal bowel sounds, soft, no tenderness, no masses or bruits, no ascites
[2025-03-20] MEDS: SENOKOT 8.6 MG TUBE ×2 (08:49→19:24)
[2025-03-20] MEDS: LOPRESSOR 37.5 MG TUBE ×2 (08:49→19:24)
[2025-03-20] MEDS: CIPRO 500 MG PO ×2 (08:49→19:24)
[2025-03-20] MEDS: MIRALAX 17 GRAMS TUBE (08:49)
[2025-03-20] MEDS: NSS (PRESERVATIVE FREE) 10 ML IV (08:50)
[2025-03-20] MEDS: PROTONIX IV 40 MG IV (08:50)
[2025-03-20] MEDS: ROBITUSSIN 200 MG TUBE ×3 (08:50→21:54)
[2025-03-20] MEDS: LOW STRENGTH ASPIRIN 81 MG TUBE (08:50)
[2025-03-20] MEDS: KLOR-CON 40 MEQ PO ×2 (08:50→19:25)
[2025-03-20] MEDS: PACERONE 200 MG TUBE ×3 (08:50→21:54)
[2025-03-20] MEDS: D5W 1000 IV ×2 (08:51→19:48)
--- NOTE | 2025-03-20 09:00 | PTCARENOTE ---
received PT from RN @ 0700, PT in bed aaox2 self& month, states he is in [place], easily reoriented; NSR on monitor radial pulses present; doppler lower pulses; +2 generalized edema; RA O2 sat 95%; GI normoactive BS w/ rectal trumpet present;
male purewick present w/ geovanna urine; R upper arm PICC WNL; Turning Q2; PT & OT to work with PT
[2025-03-20] MEDS: HEPARIN 25000 UNITS/250 ML IV (09:06)
--- NOTE | 2025-03-20 10:28 | W.PN.NEPH.PH ---
Today's Communication / Plan
-
D5W
Assessment/Plan
-
Impression:
Acute type A Aortic dissection with involvement of bilateral coronary ostia and circumferentially around the root with operative repair on 03/08/25
Acute kidney injury
Postoperative cardiogenic shock now on inotropic support
History of CABG x 4 mitral valve repair tricuspid valve repair maze and EVI exclusion on 02/16/2025
Status post Impella placement on 03/08/2025
Lactic acidosis 12.4
Vent dependent respiratory failure
NSVT
Ischemic cardiomyopathy with EF of 45 to 50%
Atrial fibrillation
History of hypertension
Plan:
Follow BMP
D5W @ 100ml/hr for now. total deficit is about 3L, Uosm was 498
Overall volume status appears to be stable
Continue potassium repletion prn
can still diurese as needed
He is making slow steady progress
possible PEG tomorrow
-
-
Date of Service: March 20, 2025
CC / HPI / ROS
-
Chief Complaint:
aortic dissection
IRON
History of Present Illness:
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
BP stable off pressors
IRON/creatinine down to 1.8
Nonoliguric without diuretics
CRRT off 03/11/2025, CVC removed.
hgb stable 9.0
Sodium slightly better at 147 with D5W and FWF 50
Review of Systems:
non oliguric
No chest pain
wants to eat (failed VSE)
Labs
-
Labs:
WBC 27.8 10^3/uL (4.8-10.8) H 03/20/25 02:36
RBC 2.92 10^6/uL (4.70-6.10) L 03/20/25 02:36
Hgb 9.0 g/dL (13.0-18.0) L 03/20/25 02:36
Hct 30.4 % (39.0-52.0) L 03/20/25 02:36
Plt Count 231 10^3/uL (130-400) 03/20/25 02:36
Sodium 147 mmol/L (135-145) H 03/20/25 02:36
Potassium 4.1 mmol/L (3.5-5.1) 03/20/25 02:36
Chloride 113 mmol/L (98-107) H 03/20/25 02:36
Carbon Dioxide 32 mmol/L (22-30) H 03/20/25 02:36
BUN 81 mg/dl (9-20) H 03/20/25 02:36
Creatinine 1.8 mg/dL (0.7-1.3) H 03/20/25 02:36
eGFR 38.77 03/20/25 02:36
Glucose 149 mg/dl (70-99) H 03/20/25 02:36
Calcium 8.1 mg/dl (8.4-10.2) L 03/20/25 02:36
Phosphorus Cancelled 03/12/25 20:00
Ygz-F-Rkmjtpgiqfg Pept 2970 pg/ml 03/04/25 15:44
Albumin 2.5 g/dl (3.5-5.0) L 03/18/25 04:02
Physical Exam
-
Vital Signs:
Vital Signs
Temp Pulse Resp BP Pulse Ox
98.4 F 97 18 139/88 96
03/20/25 06:00 03/20/25 10:20 03/20/25 07:17 03/20/25 10:00 03/20/25 10:20
Cardiovascular:: Regular rate and rhythm
Respiratory:: Bilateral: Coarse
Lung Excursion:: Normal
Abdomen:: Nontender and Soft
Bowel Sounds:: Normal
Extremity Edema:: +3: Bilateral:
--- NOTE | 2025-03-20 13:00 | PTCARENOTE ---
PT OOB with assistance of PT; stood at bedside with walker x2; PT then hoyered to chair and brought down to solarium at the end of the leary w/ son and for 1Hr; PT returned to room w/o complications
--- NOTE | 2025-03-20 14:04 | W.PN.ID1 ---
Date of Service
Date of Service: March 20, 2025
Today's Communication
Complete course of ciprofloxacin today.
Assessment / Plan
# Encephalopathy
- Improved off cefepime
# Enterobacter pneumonia
- O2 requirement decreasing
- s/p 7d cefepime
- continue cipro 500mg NGT/po q12 through 03/20 (10 day total abx course)
- Aspiration precaution.
# Leukocytosis
- Stable today; continue to trend
- unclear source to date; ?reactive
- afebrile, Neg DVT LUE
- 03/17 CT chest/abd/pelvis: no source to explain elev wbc
- Buenrostro/chest tubes/lines removed
- Check UA 1+LE, 11-15 wbc, Ucx: no growth
- blood cx's x 2 pending; NGTD
- Continue to trend WBC.
# Type A aortic dissection
- s/p repair, OR 03/07, 03/08, 03/09, 03/11
# s/p cardiogenic shock
# IRON; improving
#Conditions present on admission
Hypertension
Dyslipidemia
Atrial fibrillation s/p MAZE, EVI exclusion 02/16/25
CAD status post CABG x 4
Mitral valve repair 02/16/25
Tricuspid valve repair 02/16/25
HFrEF
Hypothyroidism
Chief Complaint
-: Pneumonia
Subjective / Review of Systems
Patient seen and examined. Overall feels weak.
Review of Systems: No Fever and No Chills
Vital Signs / Physical Exam
Vital Signs
Vital Signs
Temp Pulse Resp BP Pulse Ox
98.2 F 89 20 139/88 91
03/20/25 10:00 03/20/25 11:16 03/20/25 11:16 03/20/25 10:00 03/20/25 11:16
Physical Exam
Constitutional: Comfortable, Chronically Ill and Non-toxic
Eyes: No Conjunctival Hemorrhage
Cardiovascular: Regular Rate and S1/S2
Pulmonary: Coarse (bases) and Non Labored
Gastrointestinal: Soft, Non Tender and Non Distended
Extremities: Edema (4+ LUE; 2+ bilateral lower extremities)
Wound: Other (sternal dressing dry; no strikethrough)
Neurological: Awake and Alert
Objective Data
Lab Data
Lab Results
03/20/25 02:36
03/20/25 02:36
PT 18.5 Sec (11.4-14.6) H 03/14/25 04:33
INR 1.52 03/14/25 04:33
APTT 82.6 Sec (23.4-35.0) H 03/20/25 07:24
Estimated Creat Clear 38 ml/min 03/20/25 02:36
Lactic Acid 1.6 mmol/L (0.7-2.0) 03/15/25 18:28
Total Bilirubin 2.5 mg/dl (0.2-1.3) H 03/18/25 04:02
AST 52 U/L (17-59) 03/18/25 04:02
ALT 30 U/L (0-50) 03/18/25 04:02
Alkaline Phosphatase 195 U/L (38-126) H 03/18/25 04:02
Most recent labs reviewed.
Micro Results:
03/17/25 10:46 Blood Culture - Preliminary
Blood/Venous No Growth in 72 hours- Final report to follow
03/17/25 09:56 Blood Culture - Preliminary
Blood/Venous No Growth in 72 hours- Final report to follow
03/17/25 09:16 Urine Culture - Final
Urine NO GROWTH
03/12/25 11:30 Respiratory Culture - Final
Endotracheal Enterobacter amnigenus BG2 2
Gram Stain - Final
03/12/25 11:30 Legionella Urinary Antigen - Final
Urine Negative for Legionella pneumophila Serogroup 1 antigen.
A negative result does not rule out the possiblity of
Legionella infection due to other serogroups or species of
Legionella. Clinical correlation is recommended.
Streptococcus pneumoniae Antigen (M - Final
Negative for Streptococcus pneumoniae antigen.
A negative result does not exclude infection with
Streptococcus pneumoniae. Clinical correlation is
recommended.
03/11/25 15:48 Nasal Screen MRSA (PCR) - Final
Nose MRSA not detected - performed by PCR methodology.
Imaging:
03/19/2025 CXR (portable): interval removal of bilateral chest tubes. No evidence for significant pneumothorax.
03/15/25 Peripheral Vasc US: No evidence of deep venous thrombosis of the left upper extremity.
03/15/25 CXR: Bibasilar opacification most likely representing subsegmental atelectasis and small bilateral pleural effusions.
03/07/25 CTA chest/a/p: There is an aortic dissection extending throughout the aorta beginning at the root and extending to the aortic bifurcation consistent with [place] type A dissection.The aortic branch arteries appear to be supplied off the
true lumen. There is associated moderate narrowing of the descending thoracic aorta and proximal abdominal aorta. Additionally there is narrowing at the proximal right renal artery with associated asymmetrically decreased perfusion of the right
kidney.
[2025-03-20 15:26] LABS: Glucose - Point of Care 110 mg/dl (70-99)
[2025-03-20 17:45] LABS: Glucose - Point of Care 137 mg/dl (70-99)
[2025-03-20 17:58] LABS: APTT 93.5 Sec (23.4-35.0)
--- NOTE | 2025-03-20 18:53 | PTCARENOTE ---
PT returned to be w/ mohinder; L chest dressing change; pt resting in bed comfortably
[2025-03-20] MEDS: NSS IV (19:11)
[2025-03-20] MEDS: ROBITUSSIN TUBE (19:12)
[2025-03-20] MEDS: LIPITOR 40 MG TUBE (19:24)
--- NOTE | 2025-03-20 20:54 | PTCARENOTE ---
Patient received from RN @ 1900. Patient laying in bed comfortably. AOx2 to person and time. Pleasant and cooperative. Disoriented to place. A. Fib on monitor. BP 120/71 HR 65. Heart sounds audible. Radial and pedal pulses present. +2
generalized edema. +3 scrotal edema. +2 left arm edema. POX 95% RA. IS 500-750. Occasional dry non productive cough. Normoactive bowel sounds present. Rectal trumpet in place for diarrhea. Male purewick collecting voided geovanna urine. Right
PICC line patent and intact. Sternal incision VIK dressing dry and intact. CT dressing and Left lateral chest wall dressing dry and intact. Right and left groin punctures C/D/I. Right and left leg incisions C/D/I. Left arm dressing w/ moderate
serous drainage. Left arm dressing changed. Heparin and D5W infusing per protocol. See worklist for more details.
[2025-03-20 23:48] LABS: Glucose - Point of Care 112 mg/dl (70-99)
[2025-03-21] VITALS (11 sets, daily range): BP systolic 100–126; BP diastolic 59–82; PULSE 72; BMI 29.1
--- NOTE | 2025-03-21 | PTCARENOTE ---
Tube feeds stopped per TOURS CAPTAIN Ayden. Evaluation for PEG tube in morning w/ swallow test.
--- NOTE | 2025-03-21 00:18 | PTCARENOTE ---
Patient reassessed. Patient forgetful and agitated. Patient states 'I want to get rid of all these wires'. Therapeutic communication utilized w/ patient responding positively. Will continue to monitor. VSS.
[2025-03-21 03:30] LABS: Hematocrit 29.2 % (39.0-52.0); Hemoglobin 8.8 g/dL (13.0-18.0); Mean Corp Hgb Conc. 30.1 g/dL (33.0-37.0); Mean Corpuscular Volume 105.8 fL (80.0-94.0); Platelet Count 219 10^3/uL (130-400); Red Cell Dist. Width 21.1 % (11.5-14.5)
--- NOTE | 2025-03-21 03:52 | PTCARENOTE ---
Patient reassessed. Patient restless and states 'I am hungry, I am not getting enough nourishment'. Therapeutic communication utilized. Explained to patient what NPO means and why I can not give him any food. VSS.
--- NOTE | 2025-03-21 04:05 | PTCARENOTE ---
Heparin stopped @ 0400 per LOOM CLEANER Ayden in preparation for possible PEG tube placement.
[2025-03-21 04:14] LABS: Blood Urea Nitrogen 62 mg/dl (9-20); Calcium 7.2 mg/dl (8.4-10.2); Carbon Dioxide 28 mmol/L (22-30); Chloride 102 mmol/L (98-107); Estimated Creatinine Clearance 57 ml/min; Glucose 415 mg/dl (70-99); Magnesium 2.3 mg/dl (1.6-2.3); Potassium 4.1 mmol/L (3.5-5.1); Sodium 132 mmol/L (135-145); eGFR > 60.00
--- NOTE | 2025-03-21 05:04 | W.PN.GI.CBS2 ---
Today's Communication / Plan
-
Please see assessment and plan for details.
Assessment / Plan
-
1. Oropharyngeal dysphagia: Status post prolonged intubation, unable to have adequate oral intake, with silent aspiration, though was slightly improved on last speech evaluation. He is a bit more short of breath this morning than he had been,
pulse ox was 92% overnight. Since we were considering repeat speech eval anyway today we will hold on PEG today, repeat speech eval. I discussed with CT surgery, will check chest x-ray and monitor during the day. If speech eval no improved and
pulmonary status/chest x-ray okay we will plan PEG tomorrow. Will restart heparin today, if PEG is planned for tomorrow hold again at 4 AM.
Subjective
Subjective
Date of Service: March 21, 2025
Patient feeling okay, though appears a bit more tachypneic this morning. Pulse ox overnight around 92%. Denies any abdominal pain, fever or chills.
Objective
Data Reviewed
Laboratory Data:
Laboratory Results
03/21/25 03:15
Laboratory Results
PT 18.5 Sec (11.4-14.6) H 03/14/25 04:33
INR 1.52 03/14/25 04:33
APTT 93.5 Sec (23.4-35.0) H 03/20/25 17:36
Phosphorus Cancelled 03/12/25 20:00
Magnesium 2.3 mg/dl (1.6-2.3) 03/21/25 03:15
Total Bilirubin 2.5 mg/dl (0.2-1.3) H 03/18/25 04:02
AST 52 U/L (17-59) 03/18/25 04:02
ALT 30 U/L (0-50) 03/18/25 04:02
Alkaline Phosphatase 195 U/L (38-126) H 03/18/25 04:02
Vital Signs and I&O:
Vital Signs
Temp Pulse Resp BP Pulse Ox
98.5 F 72 17 126/82 92
03/21/25 03:24 03/21/25 04:00 03/21/25 03:24 03/21/25 03:20 03/21/25 03:24
I&O
03/19/25 03/20/25 03/21/25
06:59 05:59 06:59
Intake Total 1020 / 1020 2084 / 2084 928 / 928
Output Total 1400 / 1400 1500 / 1500 1000 / 1000
Balance -380 / -380 584 / 584 -72 / -72
Physical Exam
Physical Exam
General: NAD
Abdomen: normal bowel sounds, soft, no tenderness, no masses or bruits, no ascites
--- NOTE | 2025-03-21 05:30 | W.PN.CT ---
Today's Communication / Plan
-
-pod #14
-failed FEES eval last week. Initially planned for PEG today however RR is up and Spo2 93%. GI requesting FEES and if he fails will consider PEG tomorrow. Eliquis held (last dose 03/18)
-check CXR today
-was switched from iv Heparin to Eliquis on 03/17 for a-fib. back on Heparin gtt for possible PEG
-wbc has been trending up. Cefepime was changed to Cipro by ID. Buenrostro and Cordis were dcd 03/17. Repeat blood/urine cxs pending, NTD
-pleur CTs dcd 03/18. Ostomy bag placed over R CT site for drainage
-VIK at chest incision
-NG tube placed 03/16
-follow Na - 142 today (improved from 152), s/p D5w and FWF
-Monitor h/h stable- 8.8 today
-Monitor plts 219-improving
-Monitor cr - 1.3 today (2.3 on 03/18, 2.5 on 03/17; 1.9-2.1 on 03/16)
-Current meds: amio, asa, Synthroid, PPI, SSI, atorvastatin, Lopressor 37.5 mg, cipro, heparin gtt restarted now that PEG is deferred today
-Elevate scrotum in light of scrotal edema
-Continued on Mucomyst.
-Wean O2 as tolerated
-Encourage use of IS/Acapella
-Cont. chest PT
-Eventual rehab placement
-appreciate everyone's input
Assessment / Plan
-
Assessment:
-S/p Emergent Redo sternotomy with extensive adhesiolysis (Modifier 22 for additional dissection time of 1 hour)/Hemiarch ascending aortic replacement/ Aortic root replacement using a 27 mm valved conduit/Ligation of left and right coronary ostia as
they were dissected coronary bypass grafting to an acute marginal/Relocation of previous vein grafts onto this acute marginal vein graft/Temporary chest packing, open chest, by Dr. Sullivan, 03/07/25, pod#13
-S/p placement of a 5.5 direct aortic Impella LVAD on 03/08/[address] Sullivan
-Cardic tamponade/ Cardiovascular collapse- s/p Emergency bedside reopening of chest and the evacuation of clot; ligation of IAN, which was the bleeding source; repacking with 1 vaginal pack and Kerlix; replacement of new chest tubes by Dr. Sullivan on
03/08/25
S/p�mediastinal�reexploration/irrigation and placement of�6mm�ringed PTFE graft around the greater�saphaenous�graft. ���S/P�Emergent�Ligation of IAN, Coronary artery bypass grafting x 1 (Aortic Graft to RSVG to RSVG - T-graft)�03/09
-S/P Washout with antibiotic solution inspection of all surgical sites and closure with wires and plates, by Dr. Sullivan, 03/11/25
-S/P Endotracheal bronchoscopy with lavage, by Dr. Carpenter, 03/07/25
-S/p Impella was weaned and d/c'd at bedside by Dr. Sullivan 03/12/25
-S/P Bronchoscopy at bedside by Dr. Sullivan 03/12/25
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
-Worsening of aortic valve insufficiency to severe secondary to dissection
-Acute on chronic congestive heart failure with volume overload secondary to new aortic valve insufficiency
-Hypertension
-Hyperlipidemia
-Hypothyroidism
-AFIB on Eliquis
-Ischemic CM
-Recent cardiac surgery over 20 days ago
-Mitral valve insufficiency status post repair
-Tricuspid insufficiency status post repair
-Coronary artery disease status post CABG
-S/P CABG x 4, MV repair, TV repair, MAZE, and EVI exclusion, Dr. Sullivan 02/16/25, Readmitted for SOB on 03/04
-Acute intraop/postop blood loss/Anemia (transfused 14u PRBC's)
-Acute intraop and postop coagulopathy (Administered 10mg Factor VII, 4 of cryo and 11 FFP ); chest packed and kept opened until 03/11/25
-Acute postop thrombocytopenia (transfused 11 {5pks} plts)
-Acute postop Pulmonary insufficiency
-Acute postop VDRF
-Acute postop Metabolic Acidosis, followed by metabolic alkalosis
-Acute postop Lactic acidosis
-IRON
-Cardiac tamponade 03/08/25
-Acute postop cardiogenic shock
-Acute postop scrotal edema
-Acute postop a-fib
-Acute postop hypernatremia
Subjective
-
Date of Service: March 21, 2025
Objective Data
-
Lab Results
03/21/25 03:15
PT 18.5 Sec (11.4-14.6) H 03/14/25 04:33
INR 1.52 03/14/25 04:33
APTT 93.5 Sec (23.4-35.0) H 03/20/25 17:36
Vital Signs
Vital Signs
Temp Pulse Resp BP Pulse Ox
98.5 F 72 17 126/82 92
03/21/25 03:24 03/21/25 04:00 03/21/25 03:24 03/21/25 03:20 03/21/25 03:24
CT Intake/Output/Weight
03/20/25 03/20/25 03/21/25
05:59 18:59 06:59
Intake Total 224 / 2084 814 / 928 114 / 928
Output Total 1000 / 1500 500 / 1000 500 / 1000
Balance -776 / 584 314 / -72 -386 / -72
SaO2: 92
[2025-03-21 05:39] LABS: Blood Urea Nitrogen 65 mg/dl (9-20); Calcium 7.9 mg/dl (8.4-10.2); Carbon Dioxide 31 mmol/L (22-30); Chloride 109 mmol/L (98-107); Estimated Creatinine Clearance 52 ml/min; Glucose 108 mg/dl (70-99); Magnesium 2.5 mg/dl (1.6-2.3); Potassium 4.3 mmol/L (3.5-5.1); Sodium 142 mmol/L (135-145); eGFR 57.29
--- NOTE | 2025-03-21 06:00 | PTCARENOTE ---
Heparin restarted per BIOASSAYIST Ayden. Decided no PEG tube today.
[2025-03-21] MEDS: HEPARIN 25000 UNITS/250 ML IV ×2 (06:23→23:55)
[2025-03-21 06:28] LABS: Glucose - Point of Care 100 mg/dl (70-99)
[2025-03-21] MEDS: NOVOLOG FLEXPEN-LOW RESISTANCE SC ×3 (06:33→17:06)
[2025-03-21] MEDS: SYNTHROID 150 MCG TUBE (06:39)
[2025-03-21] MEDS: TYLENOL 975 MG TUBE ×3 (06:39→23:37)
[2025-03-21 06:43] LABS: APTT 36.3 Sec (23.4-35.0)
[2025-03-21] MEDS: MIRALAX TUBE (07:39)
[2025-03-21] MEDS: VENTOLIN NEBULES 2.5 MG INH ×4 (07:52→20:30)
--- NOTE | 2025-03-21 08:39 | PTCARENOTE ---
Received pt from nightclub manager RN at 0700; pt AAOx2 confused/easily redirected; A-fib on monitor and VSS; Right Double lumen PICC patent; Heparin infusing see flow sheet for details; Lungs diminished/coarse; IS to 750; positive bowel sounds and rectal
trumpet patent; Tube Feedings held for bedside FEES test; Right nare Dobbhoff in place marked at 73; pt voiding yellow urine via male purewick; positive radial pulses and present Doppler pulses present; +2 generalized edema, +2 left upper arm
extremity edema and +3 scrotal edema; all surgical sites C/D/I; see nursing documentation for further details.
[2025-03-21] MEDS: BUMEX 1 MG IV ×3 (08:57→23:07)
[2025-03-21] MEDS: NSS (PRESERVATIVE FREE) 10 ML IV (08:57)
[2025-03-21] MEDS: PROTONIX IV 40 MG IV (08:57)
--- NOTE | 2025-03-21 09:08 | W.PN.CD ---
Today's Communication / Plan
-
Patient still with nasal feeding tube. Still with swallowing issues and is being assessed for possible PEG.
Renal function with significant improvement. 1.3.
With improvement in renal function and stability of blood pressure would consider addition of low-dose of valsartan if okay with nephrology. If patient having procedure/PEG tomorrow can wait until postprocedure to initiate.
Impression / Plan
-
Impression/Plan: 74 yo male with PMH of ICM EF 35-40%, chronic HFrEF, persistent A fib on eliquis, HTN, CAD s/p CABG x 4, MV repair, TV repair, MAZE, and EVI exclusion with Dr. Sullivan (02/16/25); admitted on 03/04/2025 with acute on chronic HFrEF,
subsequently found to have severe AR due to [place] type A aortic dissection.
#Aortic dissection
-Acute, Moses type A w/ involvement of b/l Coronary ostia and circumferentially around the root causing severe AI, distally to the Aorto-iliac bifurcation complicated by shock.
-s/p #27 valved conduit and hemiarch replacement, ligation of L and R coronary ostia as they were dissected; bypass grafting to an acute marginal and relocation of previous vein grafts onto acute marginal vein graft..
-Loss of Impella pulsatility lead to TTE guided repositioning. Patient was re-opened at the bedside, revealing clot around the right ventricle and SVG that appeared to compress both. The clot was evacuated (05/08/2025).
-Arterial bleeding was observed from the IAN bed, which was clipped and a sternal wire site which was double ligated with good hemostasis (03/08/2025).
-CI dwindled overnight, improved to 2.06. LABOR CUSTODIAN = 0.84 [place]. Delphine = 0.8.
-The patient has had several episodes of hypotension, though to be due to compression of the SVG. The patient was taken to OR for placement of a ringed graft to prevent compression (03/09/2025).
-Patient returned to the OR for ligation of the IAN (persistent bleeding) and re-bypass to address the angulation of the original SVG to Diag, which is thought to be leading to his multiple hypotensive episodes (03/09/2025).
-s/p chest closure and Impella removal.
-Encourage incentive spirometry.
CAD s/p CABG x 4, MV repair, TV repair, MAZE, and EVI exclusion with Dr. Sullivan (02/16/25)
#HFrEF/ICMO
- Ejection fraction 25 to 30% by echo 03/08/2025
-GDMT when hemodynamics will tolerate:
-Diuretics: Bumetanide gtt on hold in light of worsening creatinine.
-Beta frantz: Metoprolol tartrate 37.5 mg BID.
-ACEI/ARB/ARNi: Blood pressure and IRON have improved would consider addition of low-dose of valsartan.
-MRA: On hold due to BP/IRON.
-SGLT2i: On hold until additional recovery.
-ICD: Not currently indicated.
#Anemia
-Post operative,. Continue to monitor
#PNA
-Acute.
-Respiratory culture positive for Enterobacter amnigenus (Amoxicillin-R, Amoxicillin/Clavulanate-R, Ampicillin/Sulbactam-R, Cefazolin-R, Ceftriaxone-I).
-Continue cefepime per ID.
#CAD
-Chronic, stable.
-S/P CABG x 4 (MAGANA to LAD, SVG to OM1 to LPL, SVG to Diag).
-During operation for Ao dissection, the SVG graft was anastomosed to the SVG to diagonal graft and the LMCA/RCA were ligated to prevent further propagation of the dissection plane.
-The current anatomy is MAGANA to LAD, SVG from Ao graft to SVG to diagonal, sequential SVG Y-graft from diagonal graft to OM1 to LPL.
#Atrial fibrillation
-Persistent.
-Currently in NSR.
-Rate/rhythm control with amiodarone, s/p MAZE with Dr. Sullivan, 02/16/2025.
-CHADS2-Vasc = 5 (CHF, HTN, Age x2, vascular disease).
-Anti-thrombotic therapy with apixaban 2.5 mg BID, S/P LAAE (#40 AtriClip, SN [id number]) with Dr. Sullivan, 02/16/2025.
#IRON
- Improved from a high of 2.5 down to 1.3
-Nephrology has consulted this admission.
- Still receiving Bumex and also order for Diamox.
#Acute liver injury
-Severe, multifactorial.
-LFTs normalized .
Critical Care Time = 31 minutes.
Subjective/Interval History:
Transfused one unit of PRBC's yesterday with appropriate response.
Transitioned to apixaban 2.5 mg BID (renal function, age).
Weight down 0.7 kg.
UA shows hematuria (4+ blood, 40-50 RBC's).
DATA:
TTE, 03/04/2025:
SUMMARY
1. Moderately reduced LV systolic function. Ejection fraction is 35-40%. Global hypokinesis.
2. S/p mitral valve repair with peak/mean gradients of 15/5 mmHg. Trace mitral valve regurgitation.
3. Moderate/severe aortic regurgitation. PHT approx 250 msec.
4. S/p tricuspid valve repair with mean gradient of 2 mmHg. Mild tricuspid regurgitation. Estimated PASP 38 mmHg, assuming RAP 8 mmHg. Mildly elevated PASP.
5. Compared to 02/19/25: LVEF is stable in 35-40% range, mitral valve and tricuspid valve repairs are stable; aortic regurgitation has progressed from mild/moderate to moderate/severe.
SAJAN, 03/07/2025:
SUMMARY
1. There is a Moses type A DeBakey class I aortic dissection present.
2. Trileaflet aortic valve. Severe aortic regurgitation due to prolapse of the left vs non coronary cusp and aortic dissection.
3. Low normal ventricular systolic function. LVEF 45-50%.
4. S/p tricuspid valve repair. Trace residual tricuspid regurgitation.
5. S/p mitral valve repair. Trace residual mitral regurgitation.
6. Dr. Sullivan (CT surgery) notified of findings at time of study.
CT surgery, 03/07/2025:
Procedure(s) Performed:
1. Ultrasound-guided access using Seldinger technique 2 the right common femoral artery and vein with percutaneous access using a 25 Frisian femoral venous cannula
2. Redo sternotomy with extensive adhesiolysis (Modifier 22 for additional dissection time of 1 hour)
3. Direct aortic cannulation using ultrasound and Seldinger technique with a SAJAN guidance verifying true lumen access
4. Moderate hypothermic circulatory arrest with antegrade cerebral perfusion
5. Hemiarch ascending aortic replacement
6. Aortic root replacement using a 27 mm valved conduit
7. Ligation of left and right coronary ostia as they were dissected coronary bypass grafting to an acute marginal
8. Relocation of previous vein grafts onto this acute marginal vein graft
9. Placement of temporary atrial ventricular pacing wires
10. Transesophageal echocardiography
11. Temporary chest packing, open chest.
Impella Placement, 03/08/2025:
Procedure(s) Performed:
1. The temporary dressing over top of the open chest was removed
2. Placement of atrial pacing wires
3. Anastomosis of a 10 mm straight tube graft off of the ascending aortic graft, graft to graft anastomosis
4. Graft tunneled to the left supra clavicular region between the strap muscles
5. Placement of a 5.5 direct aortic Impella LVAD
6. Chest closure in usual fashion
TTE, 03/08/2025:
SUMMARY
1. TDS.
2. In limited views, left ventricle appears normal sized with severely reduced systolic function. Left ventricle ejection fraction is 25-30% by visual estimation. Global hypokinesis. S/p Impella 5.5 insertion which appears to be appropriately
placed.
3. In limited views right ventricle appears normal sized with mildly reduced systolic function. Right ventricle does appear to expand in diastole.
4. Limited valvular interrogation.
5. Compared to SAJAN earlier in day, overall, no significant change.
Bedside Rexploration, 03/08/2025:
Procedure: Emergency bedside reopening of chest and the loculation of clot ligation of IAN which was the bleeding source, repacking with 1 vaginal pack and Kerlix and replacement of new chest tubes
CT surgery re-exploration, 03/09/2025 (morning):
PROCEDURES:
1. Mediastinal reexploration/irrigation and removal of packing.
2. Repositioning of proximal course of greater saphenous vein graft
with several 6-0 Prolene sutures (placed/subsequently removed).
3. Placement of 6 mm ringed PTFE graft around proximal segment of
greater saphenous vein graft .
4. Replacement of new mediastinal packing (1 vaginal pack and
partial roll of Kerlix; syringe based sternal separation).
5. Reexploration with replacement of new open chest dressing.
CT surgery re-exploration, 03/09/2025 (afternoon):
Procedure(s) Performed:
1. Reopening of temporary chest coverage.
2. Ligation of IAN.
3. Coronary artery bypass grafting x 1 (Aortic Graft to RSVG to RSVG - T-graft).
4. Open vein harvest of the left thigh.
5. Transesophageal echocardiography.
6. Repacking of chest and placement of temporary dressing.
Physical Exam
Vital Signs/Labs
Vital Signs
Temp Pulse Resp BP Pulse Ox
98.7 F 95 18 122/82 95
03/21/25 08:00 03/21/25 08:30 03/21/25 08:00 03/21/25 08:21 03/21/25 08:50
03/20/25 03/21/25 03/22/25
05:59 06:59 06:59
Actual Weight 94.1 kg 94.7 kg
03/21/25 03:15
PT 18.5 Sec (11.4-14.6) H 03/14/25 04:33
INR 1.52 03/14/25 04:33
APTT 36.3 Sec (23.4-35.0) H 03/21/25 06:20
Magnesium 2.5 mg/dl (1.6-2.3) H 03/21/25 04:48
Triglycerides 111 mg/dl (10-149) 03/13/25 04:21
03/04/25
15:44
[id number]-Xwhlfhetwkh Pept 2970
Physical Exam
Constitutional: No acute distress and Other (Awake sitting up)
Cardiovascular: Rhythm & rate is regular
Respiratory: Wheeze Absent, Rhonchi Absent and Other (Rare crackle at base)
GI: Soft
Data Reviewed
-
Date of Service: March 21, 2025
Medical Decision Making: Reviewed Test Results
X-Ray/CT/US/MRI/NUC/PET: Report Reviewed by me
Medical Tests (PFT, Pathology etc): Report Reviewed by me
Labs: Labs Reviewed by me
Critical Care Time (in minutes): 32
[2025-03-21] MEDS: KLOR-CON 40 MEQ PO ×2 (09:30→20:29)
[2025-03-21] MEDS: ROBITUSSIN 200 MG TUBE ×4 (09:30→23:37)
[2025-03-21] MEDS: LOPRESSOR 37.5 MG TUBE ×2 (09:30→20:31)
[2025-03-21] MEDS: LOW STRENGTH ASPIRIN 81 MG TUBE (09:31)
[2025-03-21] MEDS: SENOKOT 8.6 MG TUBE ×2 (09:31→20:32)
[2025-03-21] MEDS: PACERONE 200 MG TUBE ×3 (09:31→23:37)
--- NOTE | 2025-03-21 10:34 | PTOTSP ---
Speech Therapy FEES:
Patient presents with moderate pharyngeal dysphagia. Gross silent aspiration observed with thin liquid residue. Upper penetration occurred with thin liquids, mildly thick liquids, moderately thick liquids, and puree. Although no aspiration observed
with these consistencies, patient is at ongoing risk for aspiration given inability to clear penetrated materials from vestibule. Performance on this assessment is similar to performance on 03/18. Given no aspiration of modified consistencies, can
consider risks versus benefits as follows:
1) Trial of oral diet consisting of IDDSI 4 (puree) and IDDSI 2 (mildly thick liquids) with known aspiration risk and low threshold for NPO with PEG
vs
2) Continue with plan for PEG given high risk for decompensation if patient were to aspirate with risks associated with anesthesia/reintubation
Additional recommendations:
- ARHP via sparing ice chips following oral care
- Oral care 3x/daily
- COMPUTER EDUCATION TEACHER will continue to follow for pharyngeal strengthening exercises vs closely monitor tolerance of oral diet, pending decisions.
--- NOTE | 2025-03-21 10:40 | W.PN.ID1 ---
Date of Service
Date of Service: March 21, 2025
Today's Communication
Observe off abx. Follow WBC.
Assessment / Plan
# Leukocytosis
- trending down
- unclear source to date; ?reactive
- afebrile, Neg DVT LUE
- 03/17 CT chest/abd/pelvis: no source to explain elev wbc
- Buenrostro/chest tubes/lines removed
- Ucx: no growth
- blood cx's x 2 NGTD
- Continue to trend WBC.
- Observe off abx
# s/p Enterobacter pneumonia
- O2 requirement resolved
- s/p 7d cefepime
- Completed cipro 500mg NGT/po q12 through 03/20 (10 day total abx course)
- Aspiration precaution.
# Type A aortic dissection
- s/p repair, OR 03/07, 03/08, 03/09, 03/11
# s/p cardiogenic shock
# IRON; improving
#Conditions present on admission
Hypertension
Dyslipidemia
Atrial fibrillation s/p MAZE, EVI exclusion 02/16/25
CAD status post CABG x 4
Mitral valve repair 02/16/25
Tricuspid valve repair 02/16/25
HFrEF
Hypothyroidism
Chief Complaint
-: Pneumonia
Subjective / Review of Systems
Cough resolving.
Vital Signs / Physical Exam
Vital Signs
Vital Signs
Temp Pulse Resp BP Pulse Ox
98.7 F 95 18 122/82 95
03/21/25 08:00 03/21/25 08:30 03/21/25 08:00 03/21/25 08:21 03/21/25 09:08
Physical Exam
Constitutional: No Acute Distress and Comfortable
Eyes: No Conjunctival Hemorrhage
Cardiovascular: Regular Rate and Irregular Rate
Pulmonary: Clear (anteriorly)
Gastrointestinal: Soft, Non Tender, Non Distended and Other (FMS liquid brown stool)
Extremities: Edema (BLE, LLUE)
Neurological: Awake and Alert
Objective Data
Lab Data
Lab Results
03/21/25 03:15
PT 18.5 Sec (11.4-14.6) H 03/14/25 04:33
INR 1.52 03/14/25 04:33
APTT 36.3 Sec (23.4-35.0) H 03/21/25 06:20
Estimated Creat Clear 52 ml/min 03/21/25 04:48
Lactic Acid 1.6 mmol/L (0.7-2.0) 03/15/25 18:28
Total Bilirubin 2.5 mg/dl (0.2-1.3) H 03/18/25 04:02
AST 52 U/L (17-59) 03/18/25 04:02
ALT 30 U/L (0-50) 03/18/25 04:02
Alkaline Phosphatase 195 U/L (38-126) H 03/18/25 04:02
Most recent labs reviewed.
Micro Results:
03/17/25 09:56 Blood Culture - Preliminary
Blood/Venous No Growth in 4 days- Final report to follow
03/17/25 10:46 Blood Culture - Preliminary
Blood/Venous No Growth in 72 hours- Final report to follow
03/17/25 09:16 Urine Culture - Final
Urine NO GROWTH
03/12/25 11:30 Respiratory Culture - Final
Endotracheal Enterobacter amnigenus BG2 2
Gram Stain - Final
03/12/25 11:30 Legionella Urinary Antigen - Final
Urine Negative for Legionella pneumophila Serogroup 1 antigen.
A negative result does not rule out the possiblity of
Legionella infection due to other serogroups or species of
Legionella. Clinical correlation is recommended.
Streptococcus pneumoniae Antigen (M - Final
Negative for Streptococcus pneumoniae antigen.
A negative result does not exclude infection with
Streptococcus pneumoniae. Clinical correlation is
recommended.
03/11/25 15:48 Nasal Screen MRSA (PCR) - Final
Nose MRSA not detected - performed by PCR methodology.
Imaging:
03/19/2025 CXR (portable): interval removal of bilateral chest tubes. No evidence for significant pneumothorax.
03/15/25 Peripheral Vasc US: No evidence of deep venous thrombosis of the left upper extremity.
03/15/25 CXR: Bibasilar opacification most likely representing subsegmental atelectasis and small bilateral pleural effusions.
03/07/25 CTA chest/a/p: There is an aortic dissection extending throughout the aorta beginning at the root and extending to the aortic bifurcation consistent with Moses type A dissection.The aortic branch arteries appear to be supplied off the
true lumen. There is associated moderate narrowing of the descending thoracic aorta and proximal abdominal aorta. Additionally there is narrowing at the proximal right renal artery with associated asymmetrically decreased perfusion of the right
kidney.
[2025-03-21] MEDS: DIAMOX 250 MG PO (11:07)
[2025-03-21 11:18] LABS: Glucose - Point of Care 98 mg/dl (70-99)
[2025-03-21] MEDS: D5W IV (11:19)
--- NOTE | 2025-03-21 11:20 | PTCARENOTE ---
Assessment unchanged; A-fib on monitor and VSS; pt Cierra lifted to chair; washed pt with CHG bath; family at bedside and updated.
--- NOTE | 2025-03-21 11:25 | W.PN.NEPH.PH ---
Today's Communication / Plan
-
Continue Bumex
Assessment/Plan
-
Impression:
Acute type A Aortic dissection with involvement of bilateral coronary ostia and circumferentially around the root with operative repair on 03/08/25
Acute kidney injury
Postoperative cardiogenic shock now on inotropic support
History of CABG x 4 mitral valve repair tricuspid valve repair maze and EVI exclusion on 02/16/2025
Status post Impella placement on 03/08/2025
Lactic acidosis 12.4
Vent dependent respiratory failure
NSVT
Ischemic cardiomyopathy with EF of 45 to 50%
Atrial fibrillation
History of hypertension
Plan:
Follow BMP
possible PEG Pending currently NG tube with free water flushes.
Okay with stopping D5W.
Continue current Bumex dose.
-5 L overall since admission though significant lower extremity swelling albumin 2.5 poor effective arterial blood volume.
Discussed with CT surgery
-
-
Date of Service: March 21, 2025
CC / HPI / ROS
-
Chief Complaint:
aortic dissection
IRON
History of Present Illness:
CHF cardiogenic shock status post aortic dissection [employer], off dobutamine
BP stable off pressors
IRON/creatinine down to 1.8
Nonoliguric without diuretics
CRRT off 03/11/2025, CVC removed.
hgb stable 9.0
Sodium slightly better at 147 with D5W and FWF 50
Review of Systems:
non oliguric
No chest pain
wants to eat (failed VSE)
Labs
-
Labs:
WBC 25.0 10^3/uL (4.8-10.8) H 03/21/25 03:15
RBC 2.76 10^6/uL (4.70-6.10) L 03/21/25 03:15
Hgb 8.8 g/dL (13.0-18.0) L 03/21/25 03:15
Hct 29.2 % (39.0-52.0) L 03/21/25 03:15
Plt Count 219 10^3/uL (130-400) 03/21/25 03:15
eGFR 57.29 03/21/25 04:48
Phosphorus Cancelled 03/12/25 20:00
Udh-H-Gfaseeobzwf Pept 2970 pg/ml 03/04/25 15:44
Albumin 2.5 g/dl (3.5-5.0) L 03/18/25 04:02
Physical Exam
-
Vital Signs:
Vital Signs
Temp Pulse Resp BP Pulse Ox
98.7 F 95 18 122/82 95
03/21/25 08:00 03/21/25 08:30 03/21/25 08:00 03/21/25 08:21 03/21/25 09:08
Cardiovascular:: Regular rate and rhythm
Respiratory:: Bilateral: Coarse
Lung Excursion:: Normal
Abdomen:: Nontender and Soft
Bowel Sounds:: Normal
Extremity Edema:: +3: Bilateral:
Other Findings::
Anasarca
--- NOTE | 2025-03-21 13:02 | W.PN.UPDATE ---
Update Note
Progress Note Update
with multiple question about peg. Reviewed all question and plan for peg in AM in remains otherwise medically stable.
[2025-03-21 13:54] LABS: APTT 106.3 Sec (23.4-35.0)
[2025-03-21 14:59] LABS: Blood Urea Nitrogen 61 mg/dl (9-20); Calcium 8.2 mg/dl (8.4-10.2); Carbon Dioxide 29 mmol/L (22-30); Chloride 109 mmol/L (98-107); Estimated Creatinine Clearance 49 ml/min; Glucose 110 mg/dl (70-99); Potassium 4.4 mmol/L (3.5-5.1); Sodium 138 mmol/L (135-145); eGFR 52.41
--- NOTE | 2025-03-21 16:57 | PTCARENOTE ---
A-fib on monitor and VSS; assessment unchanged and pt Cierra lifted back to bed.
[2025-03-21] MEDS: LIPITOR 40 MG TUBE (17:04)
[2025-03-21 17:07] LABS: Glucose - Point of Care 95 mg/dl (70-99)
--- NOTE | 2025-03-21 20:00 | PTCARENOTE ---
Assumed care of patient at 1900. Patient found resting in bed at time of assessment. VSS. Patient is alert and oriented to person, place but not time. Patient can be confused and forgetful at times. Lung sounds are diminished in the bases, saO2 93%
on RA. Heart sounds are audible, patient is aflutter with BBB on the monitor. Patient has active BS in all four quadrants, R nare dobhoff with TF running there is a rectal trumpet draining brown liquid diarrhea, and male purewick draining clear
yellow urine. There is a sternal incision with VIK dressing, R groin puncture YARN HANDLER, RLE incision with aquacell CDI, and CT wounds with 4x4 gauze dressing CDI. R PICC in place with heparin gtt at 1600 units/hr.
[2025-03-21 20:19] LABS: APTT 127.8 Sec (23.4-35.0)
[2025-03-22] VITALS (40 sets, daily range): BP systolic 95–136; BP diastolic 63–89; BMI 28.8
[2025-03-22 00:29] LABS: Glucose - Point of Care 79 mg/dl (70-99)
[2025-03-22] MEDS: NOVOLOG FLEXPEN-LOW RESISTANCE SC ×4 (00:34→17:48)
--- NOTE | 2025-03-22 01:24 | PTCARENOTE ---
Patient off of tele monitor. Found confused now disoriented to place previously oriented. Had pulled off tele leads, CT dressing and VIK dressing. No apparent drainage noted sutures intact. CT PA notified. Per CT PA placed 4x4 gauze and ABD
dressing applied to sternotomy VIK not replaced. CT wound dressings replaced. Patient placed on mitten restraints as protective intervention.
[2025-03-22 05:39] LABS: APTT 76.2 Sec (23.4-35.0)
[2025-03-22 05:46] LABS: Blood Urea Nitrogen 58 mg/dl (9-20); Calcium 8.3 mg/dl (8.4-10.2); Carbon Dioxide 31 mmol/L (22-30); Chloride 110 mmol/L (98-107); Estimated Creatinine Clearance 52 ml/min; Glucose 90 mg/dl (70-99); Magnesium 2.5 mg/dl (1.6-2.3); Potassium 3.9 mmol/L (3.5-5.1); Sodium 142 mmol/L (135-145); eGFR 57.29
--- NOTE | 2025-03-22 06:00 | PTCARENOTE ---
Patient reassessed. VSS. Patient able to get one mitt off took off all dressings again. Patient punching nurse lightly while attempting to get mitt back on. Patient eventually stopped punching nurse able to get mitt back on. Educated patient on
purpose of mitt to keep patient safe from pulling off dressings and other tubes that would cause harm to patient. Patient verbalized understanding. AM labs obtained. AM hygiene provided. Heparin gtt off at 0400 per orders.
[2025-03-22] MEDS: SYNTHROID 150 MCG TUBE (06:08)
[2025-03-22] MEDS: TYLENOL 975 MG TUBE ×2 (06:08→22:06)
[2025-03-22] MEDS: NSS IV ×2 (06:09→17:57)
[2025-03-22 06:21] LABS: Glucose - Point of Care 98 mg/dl (70-99)
[2025-03-22] MEDS: VENTOLIN NEBULES 2.5 MG INH ×3 (07:17→15:16)
--- NOTE | 2025-03-22 07:30 | PTCARENOTE ---
Assumed care of patient from night shift manager RN. Awake and alert, sad this morning, told this RN he wishes he was home. Emotional support provided. A fib on monitor. Room air 95%. DHT intact and capped. Pt maintained NPO for pEG placement later.
Abdomen soft and non tender. Male pure wick changed, Retal trumpet intact. plus 2 general anasarca appreciated. DP pulses via doppler. Plan for day discussed.
--- NOTE | 2025-03-22 08:35 | W.PN.CT ---
Today's Communication / Plan
-
-pod #15
-confused overnight, took off Idalmis dressing off the sternum. Incision is well approximated, intact, dry- placed clean 4x4 and abd dressing.
-chest US 03/21 with moderate b/l dressings
-for PEG tube placement today (iv Heparin put on hold @ 4 am)
-will try to coordinate L thoracentesis today prior to PEG placement and R thoracentesis tomorrow
-diuresed with tid Bumex and Diamox 03/21
-encourage IS, OOB
Assessment / Plan
-
Assessment:
-S/p Emergent Redo sternotomy with extensive adhesiolysis (Modifier 22 for additional dissection time of 1 hour)/Hemiarch ascending aortic replacement/ Aortic root replacement using a 27 mm valved conduit/Ligation of left and right coronary ostia as
they were dissected coronary bypass grafting to an acute marginal/Relocation of previous vein grafts onto this acute marginal vein graft/Temporary chest packing, open chest, by Dr. Sullivan, 03/07/25, pod#15
-S/p placement of a 5.5 direct aortic Impella LVAD on 03/08/[address] Sullivan
-Cardic tamponade/ Cardiovascular collapse- s/p Emergency bedside reopening of chest and the evacuation of clot; ligation of IAN, which was the bleeding source; repacking with 1 vaginal pack and Kerlix; replacement of new chest tubes by Dr. Sullivan on
03/08/25
S/p�mediastinal�reexploration/irrigation and placement of�6mm�ringed PTFE graft around the greater�saphaenous�graft. ���S/P�Emergent�Ligation of IAN, Coronary artery bypass grafting x 1 (Aortic Graft to RSVG to RSVG - T-graft)�03/09
-S/P Washout with antibiotic solution inspection of all surgical sites and closure with wires and plates, by Dr. Sullivan, 03/11/25
-S/P Endotracheal bronchoscopy with lavage, by Dr. Carpenter, 03/07/25
-S/p Impella was weaned and d/c'd at bedside by Dr. Sullivan 03/12/25
-S/P Bronchoscopy at bedside by Dr. Sullivan 03/12/25
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
-Worsening of aortic valve insufficiency to severe secondary to dissection
-Acute on chronic congestive heart failure with volume overload secondary to new aortic valve insufficiency
-Hypertension
-Hyperlipidemia
-Hypothyroidism
-AFIB on Eliquis
-Ischemic CM
-Recent cardiac surgery over 20 days ago
-Mitral valve insufficiency status post repair
-Tricuspid insufficiency status post repair
-Coronary artery disease status post CABG
-S/P CABG x 4, MV repair, TV repair, MAZE, and EVI exclusion, Dr. Sullivan 02/16/25, Readmitted for SOB on 03/04
-Acute intraop/postop blood loss/Anemia (transfused 14u PRBC's)
-Acute intraop and postop coagulopathy (Administered 10mg Factor VII, 4 of cryo and 11 FFP ); chest packed and kept opened until 03/11/25
-Acute postop thrombocytopenia (transfused 11 {5pks} plts)
-Acute postop Pulmonary insufficiency
-Acute postop VDRF
-Acute postop Metabolic Acidosis, followed by metabolic alkalosis
-Acute postop Lactic acidosis
-IRON
-Cardiac tamponade 03/08/25
-Acute postop cardiogenic shock
-Acute postop scrotal edema
-Acute postop a-fib
-Acute postop hypernatremia
Discussed patient care with: Nursing and Care Team
Subjective
-
Date of Service: March 22, 2025
Objective Data
-
Lab Results
03/21/25 03:15
03/22/25 04:45
PT 18.5 Sec (11.4-14.6) H 03/14/25 04:33
INR 1.52 03/14/25 04:33
APTT 76.2 Sec (23.4-35.0) H 03/22/25 04:45
Vital Signs
Vital Signs
Temp Pulse Resp BP Pulse Ox
97.8 F 95 16 121/88 98
03/22/25 04:00 03/22/25 07:19 03/22/25 07:19 03/22/25 04:31 03/22/25 04:00
CT Intake/Output/Weight
03/21/25 03/22/25 03/22/25
18:59 06:59 18:59
Intake Total 1072 / 1226 154 / 1226
Output Total 1300 / 2550 1250 / 2550 100 / 100
Balance -228 / -1324 -1096 / -1324 -100 / -100
SaO2: 98
Physical Exam
-
General: Awake and AOx3
Cardiovascular: Irregular rate & rhythm, No Murmurs and No Rub
Respiratory: Decreased Breath Sounds
Sternum: Stable
Incision: Clean, Dry and Intact
Extremities: Edema +1
Data Reviewed
-
Lab Results: Results Reviewed
Medications: Active Meds Reviewed
Chest X-Ray: Report Reviewed and Image Reviewed
ECG: Report Reviewed and Image Reviewed
--- NOTE | 2025-03-22 09:08 | PTCARENOTE ---
Returned from IR . Lt back band aid intact. CHG bath given, linens changed.
[2025-03-22] MEDS: MIRALAX TUBE (09:19)
[2025-03-22] MEDS: NSS (PRESERVATIVE FREE) 10 ML IV (09:19)
[2025-03-22] MEDS: BUMEX 1 MG IV ×3 (09:19→22:02)
[2025-03-22] MEDS: PROTONIX IV 40 MG IV (09:19)
[2025-03-22] MEDS: ROBITUSSIN TUBE ×2 (09:20→12:03)
[2025-03-22] MEDS: SENOKOT TUBE (09:20)
--- NOTE | 2025-03-22 10:35 | W.PN.CD ---
Today's Communication / Plan
-
Agree with care
Impression / Plan
-
Impression/Plan: 74 yo male with PMH of ICM EF 35-40%, chronic HFrEF, persistent A fib on eliquis, HTN, CAD s/p CABG x 4, MV repair, TV repair, MAZE, and EVI exclusion with Dr. Sullivan (02/16/25); admitted on 03/04/2025 with acute on chronic HFrEF,
subsequently found to have severe AR due to Ivanhoe type A aortic dissection.
#Aortic dissection
-Acute, Ivanhoe type A w/ involvement of b/l Coronary ostia and circumferentially around the root causing severe AI, distally to the Aorto-iliac bifurcation complicated by shock.
-s/p #27 valved conduit and hemiarch replacement, ligation of L and R coronary ostia as they were dissected; bypass grafting to an acute marginal and relocation of previous vein grafts onto acute marginal vein graft..
-Loss of Impella pulsatility lead to TTE guided repositioning. Patient was re-opened at the bedside, revealing clot around the right ventricle and SVG that appeared to compress both. The clot was evacuated (05/08/2025).
-Arterial bleeding was observed from the IAN bed, which was clipped and a sternal wire site which was double ligated with good hemostasis (03/08/2025).
-The patient has had several episodes of hypotension, though to be due to compression of the SVG. The patient was taken to OR for placement of a ringed graft to prevent compression (03/09/2025).
-Patient returned to the OR for ligation of the IAN (persistent bleeding) and re-bypass to address the angulation of the original SVG to Diag, which is thought to be leading to his multiple hypotensive episodes (03/09/2025).
-s/p chest closure and Impella removal.
-Encourage incentive spirometry.
CAD s/p CABG x 4, MV repair, TV repair, MAZE, and EVI exclusion with Dr. Sullivan (02/16/25)
#HFrEF/ICMO
- Ejection fraction 25 to 30% by echo 03/08/2025
-GDMT when hemodynamics will tolerate:
-Diuretics: Bumetanide gtt on hold in light of worsening creatinine.
-Beta frantz: Metoprolol tartrate 37.5 mg BID => later move to succinate
-ACEI/ARB/ARNi: Blood pressure and IRON have improved would consider addition of low-dose of Valsartan or TOMI-i but not yet given BUN/Cr ratio
-MRA: On hold due to BP/IRON.
-SGLT2i: On hold until additional recovery.
-ICD: Not currently indicated.
#Anemia
-Post operative,. Continue to monitor
#PNA
-Acute.
-Respiratory culture positive for Enterobacter amnigenus (Amoxicillin-R, Amoxicillin/Clavulanate-R, Ampicillin/Sulbactam-R, Cefazolin-R, Ceftriaxone-I).
-Continue cefepime per ID.
#CAD
-Chronic, stable.
-S/P CABG x 4 (MAGANA to LAD, SVG to OM1 to LPL, SVG to Diag).
-During operation for Ao dissection, the SVG graft was anastomosed to the SVG to diagonal graft and the LMCA/RCA were ligated to prevent further propagation of the dissection plane.
-The current anatomy is MAGANA to LAD, SVG from Ao graft to SVG to diagonal, sequential SVG Y-graft from diagonal graft to OM1 to LPL.
#Atrial fibrillation
-Persistent.
-Currently in NSR.
-Rate/rhythm control with amiodarone, s/p MAZE with Dr. Sullivan, 02/16/2025.
-CHADS2-Vasc = 5 (CHF, HTN, Age x2, vascular disease).
-Anti-thrombotic therapy with apixaban 5 mg BID, S/P LAAE (#40 AtriClip, SN [id number]) with Dr. Sullivan, 02/16/2025. (ELIQUIS ABC dosing for AFib: age >= 80, body weight <= 60 kg, Cr >= 1.5: NEED 2 of 3 to go to 2.5 BID).
#IRON
- Improved from a high of 2.5 down to 1.3
-Nephrology has consulted this admission.
- Still receiving Bumex and also order for Diamox.
S/p acute liver injury
-Severe, multifactorial.
-LFTs normalized .
Mentation: Oriented to person/hospital, not city
Subjective/Interval History:
Feeling stronger
DATA:
TTE, 03/04/2025:
SUMMARY
1. Moderately reduced LV systolic function. Ejection fraction is 35-40%. Global hypokinesis.
2. S/p mitral valve repair with peak/mean gradients of 15/5 mmHg. Trace mitral valve regurgitation.
3. Moderate/severe aortic regurgitation. PHT approx 250 msec.
4. S/p tricuspid valve repair with mean gradient of 2 mmHg. Mild tricuspid regurgitation. Estimated PASP 38 mmHg, assuming RAP 8 mmHg. Mildly elevated PASP.
5. Compared to 02/19/25: LVEF is stable in 35-40% range, mitral valve and tricuspid valve repairs are stable; aortic regurgitation has progressed from mild/moderate to moderate/severe.
SAJAN, 03/07/2025:
SUMMARY
1. There is a Ivanhoe type A DeBakey class I aortic dissection present.
2. Trileaflet aortic valve. Severe aortic regurgitation due to prolapse of the left vs non coronary cusp and aortic dissection.
3. Low normal ventricular systolic function. LVEF 45-50%.
4. S/p tricuspid valve repair. Trace residual tricuspid regurgitation.
5. S/p mitral valve repair. Trace residual mitral regurgitation.
6. Dr. Sullivan (CT surgery) notified of findings at time of study.
CT surgery, 03/07/2025:
Procedure(s) Performed:
1. Ultrasound-guided access using Seldinger technique 2 the right common femoral artery and vein with percutaneous access using a 25 Salvadorean femoral venous cannula
2. Redo sternotomy with extensive adhesiolysis (Modifier 22 for additional dissection time of 1 hour)
3. Direct aortic cannulation using ultrasound and Seldinger technique with a SAJAN guidance verifying true lumen access
4. Moderate hypothermic circulatory arrest with antegrade cerebral perfusion
5. Hemiarch ascending aortic replacement
6. Aortic root replacement using a 27 mm valved conduit
7. Ligation of left and right coronary ostia as they were dissected coronary bypass grafting to an acute marginal
8. Relocation of previous vein grafts onto this acute marginal vein graft
9. Placement of temporary atrial ventricular pacing wires
10. Transesophageal echocardiography
11. Temporary chest packing, open chest.
Impella Placement, 03/08/2025:
Procedure(s) Performed:
1. The temporary dressing over top of the open chest was removed
2. Placement of atrial pacing wires
3. Anastomosis of a 10 mm straight tube graft off of the ascending aortic graft, graft to graft anastomosis
4. Graft tunneled to the left supra clavicular region between the strap muscles
5. Placement of a 5.5 direct aortic Impella LVAD
6. Chest closure in usual fashion
TTE, 03/08/2025:
SUMMARY
1. TDS.
2. In limited views, left ventricle appears normal sized with severely reduced systolic function. Left ventricle ejection fraction is 25-30% by visual estimation. Global hypokinesis. S/p Impella 5.5 insertion which appears to be appropriately
placed.
3. In limited views right ventricle appears normal sized with mildly reduced systolic function. Right ventricle does appear to expand in diastole.
4. Limited valvular interrogation.
5. Compared to SAJAN earlier in day, overall, no significant change.
Bedside Rexploration, 03/08/2025:
Procedure: Emergency bedside reopening of chest and the loculation of clot ligation of IAN which was the bleeding source, repacking with 1 vaginal pack and Kerlix and replacement of new chest tubes
CT surgery re-exploration, 03/09/2025 (morning):
PROCEDURES:
1. Mediastinal reexploration/irrigation and removal of packing.
2. Repositioning of proximal course of greater saphenous vein graft
with several 6-0 Prolene sutures (placed/subsequently removed).
3. Placement of 6 mm ringed PTFE graft around proximal segment of
greater saphenous vein graft .
4. Replacement of new mediastinal packing (1 vaginal pack and
partial roll of Kerlix; syringe based sternal separation).
5. Reexploration with replacement of new open chest dressing.
CT surgery re-exploration, 03/09/2025 (afternoon):
Procedure(s) Performed:
1. Reopening of temporary chest coverage.
2. Ligation of IAN.
3. Coronary artery bypass grafting x 1 (Aortic Graft to RSVG to RSVG - T-graft).
4. Open vein harvest of the left thigh.
5. Transesophageal echocardiography.
6. Repacking of chest and placement of temporary dressing.
Physical Exam
Vital Signs/Labs
Vital Signs
Temp Pulse Resp BP Pulse Ox
97.7 F 89 15 136/88 97
03/22/25 08:14 03/22/25 08:50 03/22/25 08:50 03/22/25 08:50 03/22/25 09:44
03/21/25 03/22/25 03/23/25
06:59 06:59 06:59
Actual Weight 94.7 kg 93.5 kg
03/21/25 03:15
03/22/25 04:45
PT 18.5 Sec (11.4-14.6) H 03/14/25 04:33
INR 1.52 03/14/25 04:33
APTT 76.2 Sec (23.4-35.0) H 03/22/25 04:45
Magnesium 2.5 mg/dl (1.6-2.3) H 03/22/25 04:45
Triglycerides 111 mg/dl (10-149) 03/13/25 04:21
03/04/25
15:44
Sep-I-Djpiktcwufk Pept 2970
Physical Exam
Constitutional: No acute distress
Cardiovascular: Rhythm/rate is irregular, S1S2 is normal and Rub absent
Respiratory: Respiratory effort normal and Crackles Absent
GI: Soft and Distention absent
Neuro/Psych: Alert and Other (oriented to hospital, a [facility] but not city, thought he might be in [place])
Data Reviewed
-
Date of Service: March 22, 2025
--- NOTE | 2025-03-22 11:32 | W.IMMPOSTOP ---
Surgical Immed Post Op Note
-
Primary Surgeon: Nick
Assisting Surgeon: Jerry
Pre-op Diagnosis: Dysphagia
Post-op Diagnosis: Dysphagia
Procedure Performed: Percutaneous endoscopic gastrostomy (PEG) tube placement
Anesthesia Type: MAC/Local
Specimen / Cultures: None
Estimated Blood Loss: 1 cc
Complications: None
Operative Findings:
1. Mild retained food particulate in esophagus, no significant esophagitis or GEJ narrowing, mild erythema and thickening of gastric wall (see GI note for details)
2. 20 Fr PEG tube inserted using standard pull technique within epigastrium/LUQ; transillumination, positive bubble study, one-to-one palpation
3. Tube secured at 2 cm at the skin
[2025-03-22] MEDS: LOW STRENGTH ASPIRIN TUBE (12:02)
[2025-03-22] MEDS: KLOR-CON PO (12:02)
[2025-03-22] MEDS: PACERONE TUBE (12:02)
[2025-03-22] MEDS: LOPRESSOR TUBE (12:02)
[2025-03-22 12:47] LABS: Glucose - Point of Care 75 mg/dl (70-99)
[2025-03-22] MEDS: LOPRESSOR 2.5 MG IV (13:14)
--- NOTE | 2025-03-22 13:32 | PTCARENOTE ---
Received report from RN, assumed care of patient at 1100. Patient transferred to [facility] at this time for PEG placement via GI lab. Received report from GI micro lab analyst at 1135, patient transferred back into room at 1147. PEG in place upper abdomen,
bumper at 2cm with small amounts of sanguinous drainage on gauze. ABD binder present at this time 2/2 patient confusion at time's and pulls at medical equipment. GI micro lab analyst state no meds/water for 6hours post procedure. Dietary consulted for tube
feed recommendations. PO meds help from this morning 2/2 PEG placement. HR 90-100's, NSR at this time with BBB. HYSTER DRIVER aware and orders placed for 2.5mg IV lopressor, see MAR for administration. Heparin remains on hold at this time, HYSTER DRIVER aware. Family
at bedside, questions answered and support provided. Nursing assessment completed and as documented. Denies pain at this time. VSS. RUE D/L PICC in place and patent. Care going.
[2025-03-22] MEDS: TYLENOL TUBE (14:10)
--- NOTE | 2025-03-22 16:00 | CM ---
referrals [facility]ed [facility] also for [facility]. awaiting PMR eval, will need insur auth. awaiting bed avail. cm to talk with family.
--- NOTE | 2025-03-22 17:07 | CM ---
spoke to pts about LT[facility] rehabs and acute rehabs. she is agreeable [facility] if he is accepted and if insuance approves. we discussed that pt may also be able to go to [facility] after that is he qualifies.
referrals sent , awaiting call back from [facility] admission liason.
[2025-03-22 17:46] LABS: Glucose - Point of Care 60 mg/dl (70-99)
[2025-03-22] MEDS: LIPITOR 40 MG TUBE (17:47)
[2025-03-22] MEDS: PACERONE 200 MG TUBE ×2 (17:48→22:06)
[2025-03-22] MEDS: ROBITUSSIN 200 MG TUBE ×2 (17:58→22:06)
--- NOTE | 2025-03-22 18:02 | PTCARENOTE ---
TT Ahmad from GI to clarify PEG tube usage today - meds and water only. Consulted dietary for tube feed recommendations. TT CV [employer]ER MARINE and GI to clarify heparin restart orders. Patient remains off heparin since 399, SCD in place. CV [employer]ER MARINE stated to restart
heparin in 24 hours, no new orders placed at this time. Accucheck resulted at 60, patient asymptomatic, CV [employer]INE made aware and recheck in an hour. PO medications given through PEG tube without difficulty. Dressing changed, CDI. VSS, call bustillos within
reach, denies pain at this time, care ongoing.
[2025-03-22 18:48] LABS: Glucose - Point of Care 59 mg/dl (70-99)
[2025-03-22] MEDS: DEXTROSE 50% SYRINGE 12.5 GRAMS IV (19:04)
[2025-03-22 19:26] LABS: Glucose - Point of Care 108 mg/dl (70-99)
--- NOTE | 2025-03-22 20:00 | PTCARENOTE ---
Assumed care of patient at 1900. Patient found resting in bed at time of assessment. Patient is AOx2, DO place, moves all extremities, follows commands appropriately. Patient can be forgetful and confused at times. Lung sounds are diminished in the
bases, saO2 93-94% on RA. Heart sounds are audible if irregular, patient is Aflutter with BBB on the monitor. Normal palpable radial pulses, and pedal pulses are present with doppler. Patient has +2 BLE, +2 generalized anasarca and +2 scrotal edema.
Patient has active BS in all four quadrants, there is a rectal tube in place draining brown diarrhea, newly place PEG tube with abdominal binder in place no drainage, and a male PW draining clear yellow urine. Patient has a sternal incision approx
with surg adhesive sutures in place with 4x4 gauze and ABD dressing CDI. Medial CT wounds with ABD dressing CDI, R lateral CT wound with ABD 4x4 gauze dressing CDI. Preventive foams on heels, elbows and sacrum. Patient has R groin puncture approx
with adhesive KRYSTYNA ecchymotic, RLE incision with aquacell CDI. Patient has R arm dual lumen PICC currently no infusion. VSS. Call bustillos within reach bed alarm on given patient's orientation /confusion.
[2025-03-22] MEDS: LOPRESSOR 37.5 MG TUBE (20:12)
[2025-03-22] MEDS: SENOKOT 8.6 MG TUBE (20:15)
[2025-03-22] MEDS: KLOR-CON 40 MEQ PO (20:15)
[2025-03-22 22:18] LABS: Glucose - Point of Care 71 mg/dl (70-99)
[2025-03-23] VITALS (19 sets, daily range): BP systolic 92–143; BP diastolic 70–97; PULSE 90; BMI 28.1
--- NOTE | 2025-03-23 | PTCARENOTE ---
Patient reassessed. VSS. Remains aflutter with BBB on the monitor. Call bustillos within reach.
[2025-03-23] MEDS: DEXTROSE 50% SYRINGE 12.5 GRAMS IV (00:13)
[2025-03-23 00:15] LABS: Glucose - Point of Care 42 mg/dl (70-99)
[2025-03-23] MEDS: NOVOLOG FLEXPEN-LOW RESISTANCE SC ×4 (00:17→18:46)
[2025-03-23 00:35] LABS: Glucose - Point of Care 93 mg/dl (70-99)
--- NOTE | 2025-03-23 00:40 | GLUCOSE ---
SITUATION:
POC glucose 42
BACKGROUND:
Patient with new PEG tube. Currently NPO with no tube feeds since they will be started later today. Hypoglycemic at change of shift as well.
ASSESSMENT:
Patient is asymptomatic for hypoglycemia at this time.
RECOMMENDATION:
Additional dose 25mL D5W administered. CT VIMAL notified. On 15 min recheck blood sugar is 93. Patient remains asymptomatic. Will continue q2h checks for now.
[2025-03-23 02:17] LABS: Glucose - Point of Care 95 mg/dl (70-99)
[2025-03-23 02:41] LABS: Hematocrit 31.2 % (39.0-52.0); Hemoglobin 9.3 g/dL (13.0-18.0); Mean Corp Hgb Conc. 29.8 g/dL (33.0-37.0); Mean Corpuscular Volume 104.0 fL (80.0-94.0); Platelet Count 206 10^3/uL (130-400); Red Cell Dist. Width 21.5 % (11.5-14.5)
[2025-03-23 03:07] LABS: Blood Urea Nitrogen 53 mg/dl (9-20); Calcium 8.4 mg/dl (8.4-10.2); Carbon Dioxide 33 mmol/L (22-30); Chloride 111 mmol/L (98-107); Estimated Creatinine Clearance 52 ml/min; Glucose 101 mg/dl (70-99); Magnesium 2.3 mg/dl (1.6-2.3); Potassium 3.7 mmol/L (3.5-5.1); Sodium 143 mmol/L (135-145); eGFR 57.29
[2025-03-23] MEDS: KCL 100 IV (04:39)
[2025-03-23 04:48] LABS: Glucose - Point of Care 72 mg/dl (70-99)
--- NOTE | 2025-03-23 05:25 | PTCARENOTE ---
Patient reassessed. VSS. AM hygiene care provided. AM labs obtained. K repleted.
[2025-03-23 06:26] LABS: Glucose - Point of Care 70 mg/dl (70-99)
[2025-03-23] MEDS: SYNTHROID 150 MCG TUBE (06:27)
--- NOTE | 2025-03-23 06:47 | W.PN.CT ---
Today's Communication / Plan
-
-pod #16
-no issues overnight
-no drips. Holding Heparin post PEG placement on 03/22- will likely resume either Heparin or Eliquis today for a-fib
-s/p L thoracentesis 03/22: 650 clear yellow fluid
-plans for R thoracentesis today
Assessment / Plan
-
Assessment:
-S/p Emergent Redo sternotomy with extensive adhesiolysis (Modifier 22 for additional dissection time of 1 hour)/Hemiarch ascending aortic replacement/ Aortic root replacement using a 27 mm valved conduit/Ligation of left and right coronary ostia as
they were dissected coronary bypass grafting to an acute marginal/Relocation of previous vein grafts onto this acute marginal vein graft/Temporary chest packing, open chest, by Dr. Sullivan, 03/07/25, pod#16
-S/p placement of a 5.5 direct aortic Impella LVAD on 03/08/[address] Sullivan
-Cardic tamponade/ Cardiovascular collapse- s/p Emergency bedside reopening of chest and the evacuation of clot; ligation of IAN, which was the bleeding source; repacking with 1 vaginal pack and Kerlix; replacement of new chest tubes by Dr. Sullivan on
03/08/25
S/p�mediastinal�reexploration/irrigation and placement of�6mm�ringed PTFE graft around the greater�saphaenous�graft. ���S/P�Emergent�Ligation of IAN, Coronary artery bypass grafting x 1 (Aortic Graft to RSVG to RSVG - T-graft)�03/09
-S/P Washout with antibiotic solution inspection of all surgical sites and closure with wires and plates, by Dr. Sullivan, 03/11/25
-S/P Endotracheal bronchoscopy with lavage, by Dr. Carpenter, 03/07/25
-S/p Impella was weaned and d/c'd at bedside by Dr. Sullivan 03/12/25
-S/P Bronchoscopy at bedside by Dr. Sullivan 03/12/25
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
-Worsening of aortic valve insufficiency to severe secondary to dissection
-Acute on chronic congestive heart failure with volume overload secondary to new aortic valve insufficiency
-Hypertension
-Hyperlipidemia
-Hypothyroidism
-AFIB on Eliquis
-Ischemic CM
-Recent cardiac surgery over 20 days ago
-Mitral valve insufficiency status post repair
-Tricuspid insufficiency status post repair
-Coronary artery disease status post CABG
-S/P CABG x 4, MV repair, TV repair, MAZE, and EVI exclusion, Dr. Sullivan 02/16/25, Readmitted for SOB on 03/04
-Acute intraop/postop blood loss/Anemia (transfused 14u PRBC's)
-Acute intraop and postop coagulopathy (Administered 10mg Factor VII, 4 of cryo and 11 FFP ); chest packed and kept opened until 03/11/25
-Acute postop thrombocytopenia (transfused 11 {5pks} plts)
-Acute postop Pulmonary insufficiency
-Acute postop VDRF
-Acute postop Metabolic Acidosis, followed by metabolic alkalosis
-Acute postop Lactic acidosis
-IRON
-Cardiac tamponade 03/08/25
-Acute postop cardiogenic shock
-Acute postop scrotal edema
-Acute postop a-fib
-Acute postop hypernatremia
Discussed patient care with: Nursing and Care Team
Subjective
-
Date of Service: March 23, 2025
Objective Data
-
Lab Results
03/23/25 02:30
03/23/25 02:30
PT 18.5 Sec (11.4-14.6) H 03/14/25 04:33
INR 1.52 03/14/25 04:33
APTT Cancelled 03/22/25 17:33
Vital Signs
Vital Signs
Temp Pulse Resp BP Pulse Ox
97.5 F 90 20 125/87 94
03/23/25 04:00 03/23/25 06:30 03/23/25 04:00 03/23/25 02:10 03/23/25 05:30
CT Intake/Output/Weight
03/22/25 03/22/25 03/23/25
06:59 18:59 06:59
Intake Total 154 / 1226 0 / 0
Output Total 1250 / 2550 1450 / 2450 1000 / 2450
Balance -1096 / -1324 -1450 / -2450 -1000 / -2450
SaO2: 94
Physical Exam
-
General: Awake and AOx3
Cardiovascular: Irregular rate & rhythm, No Murmurs and No Rub
Respiratory: Decreased Breath Sounds
Sternum: Stable
Incision: Clean, Dry and Intact
Extremities: Edema +1
Data Reviewed
-
Lab Results: Results Reviewed
Medications: Active Meds Reviewed
Chest X-Ray: Report Reviewed and Image Reviewed
ECG: Report Reviewed and Image Reviewed
[2025-03-23] MEDS: TYLENOL 975 MG TUBE ×3 (07:35→22:06)
[2025-03-23] MEDS: MIRALAX 17 GRAMS TUBE (08:59)
[2025-03-23] MEDS: BUMEX 1 MG IV ×3 (09:00→22:06)
[2025-03-23] MEDS: ROBITUSSIN 200 MG TUBE ×4 (09:01→22:06)
[2025-03-23] MEDS: KLOR-CON 40 MEQ PO ×2 (09:02→19:51)
[2025-03-23] MEDS: NSS (PRESERVATIVE FREE) 10 ML IV (09:03)
[2025-03-23] MEDS: PROTONIX IV 40 MG IV (09:03)
[2025-03-23] MEDS: LOPRESSOR 37.5 MG TUBE ×2 (09:06→19:49)
[2025-03-23] MEDS: SENOKOT 8.6 MG TUBE ×2 (09:06→19:50)
[2025-03-23] MEDS: PACERONE 200 MG TUBE ×3 (09:06→22:06)
[2025-03-23] MEDS: LOW STRENGTH ASPIRIN 81 MG TUBE (09:08)
--- NOTE | 2025-03-23 09:08 | W.PN.GI.CBS2 ---
Today's Communication / Plan
-
ok to use PEG
Assessment / Plan
-
Pt s/p PEG
- site looks good
- ok to use now with no restriction
will sign off
Subjective
Subjective
Date of Service: March 23, [address], no complaints of abd pain
Objective
Data Reviewed
Laboratory Data:
Laboratory Results
03/23/25 02:30
03/23/25 02:30
Laboratory Results
PT 18.5 Sec (11.4-14.6) H 03/14/25 04:33
INR 1.52 03/14/25 04:33
APTT Cancelled 03/22/25 17:33
Phosphorus Cancelled 03/12/25 20:00
Magnesium 2.3 mg/dl (1.6-2.3) 03/23/25 02:30
Total Bilirubin 2.5 mg/dl (0.2-1.3) H 03/18/25 04:02
AST 52 U/L (17-59) 03/18/25 04:02
ALT 30 U/L (0-50) 03/18/25 04:02
Alkaline Phosphatase 195 U/L (38-126) H 03/18/25 04:02
Vital Signs and I&O:
Vital Signs
Temp Pulse Resp BP Pulse Ox
97.5 F 99 20 125/87 90
03/23/25 04:00 03/23/25 08:50 03/23/25 04:00 03/23/25 02:10 03/23/25 08:20
I&O
03/22/25 03/23/25 03/24/25
06:59 06:59 06:59
Intake Total 1226 / 1226 0 / 0
Output Total 2550 / 2550 2450 / 2450
Balance -1324 / -1324 -2450 / -2450
Physical Exam
Physical Exam
GI: Soft and Other (PEG at 2cm, skin site looks good. binder over it)
--- NOTE | 2025-03-23 09:26 | W.PN.CD ---
Today's Communication / Plan
-
EKG
Watch on new Eliquis
If flutter persists then cardioversion in 4-6 weeks
Hope not to use Amio more than 2-4 months
Slowly advance GDMT for HFrEF
Watch mentation
Impression / Plan
-
Background: 74 yo male with PMH of ICM EF 35-40%, chronic HFrEF, persistent A fib on eliquis, HTN, CAD s/p CABG x 4, MV repair, TV repair, MAZE, and EVI exclusion with Dr. Sullivan (02/16/25); admitted on 03/04/2025 with acute on chronic HFrEF,
subsequently found to have severe AR due to Rivers[place] type A aortic dissection.
Aortic dissection
- Very complex hospital course
- Improving
CAD s/p CABG x 4, MV repair, TV repair, MAZE, and EVI exclusion with Dr. Sullivan (02/16/25)
HFrEF/Ischemic cardiomyopathy (LVEF 25 to 30% by echo 03/08/2025
- Slowly will add GDMT
Anemia, Hgb fairly stable, 3 U PRBC transfused this admit
Pneumonia => off ATB
Atrial fibrillation and 2:1 Flutter (likely atypical)
- Reported to be in sinus, flutter needs careful review of lead V1 => naz repeat ekg, last EKG 03/15/2025 was 2:1 Flutter
- On Amio
- Now on Eliquis
Acute renal and liver dysfxn improved
Mentation: Oriented to person/hospital, month, off by 1 day of week
Subjective/Interval History:
Feeling stronger
DATA:
TTE, 03/04/2025:
SUMMARY
1. Moderately reduced LV systolic function. Ejection fraction is 35-40%. Global hypokinesis.
2. S/p mitral valve repair with peak/mean gradients of 15/5 mmHg. Trace mitral valve regurgitation.
3. Moderate/severe aortic regurgitation. PHT approx 250 msec.
4. S/p tricuspid valve repair with mean gradient of 2 mmHg. Mild tricuspid regurgitation. Estimated PASP 38 mmHg, assuming RAP 8 mmHg. Mildly elevated PASP.
5. Compared to 02/19/25: LVEF is stable in 35-40% range, mitral valve and tricuspid valve repairs are stable; aortic regurgitation has progressed from mild/moderate to moderate/severe.
SAJAN, 03/07/2025:
SUMMARY
1. There is a Riverside type A DeBakey class I aortic dissection present.
2. Trileaflet aortic valve. Severe aortic regurgitation due to prolapse of the left vs non coronary cusp and aortic dissection.
3. Low normal ventricular systolic function. LVEF 45-50%.
4. S/p tricuspid valve repair. Trace residual tricuspid regurgitation.
5. S/p mitral valve repair. Trace residual mitral regurgitation.
6. Dr. Sullivan (CT surgery) notified of findings at time of study.
CT surgery, 03/07/2025:
Procedure(s) Performed:
1. Ultrasound-guided access using Seldinger technique 2 the right common femoral artery and vein with percutaneous access using a 25 Turkish femoral venous cannula
2. Redo sternotomy with extensive adhesiolysis (Modifier 22 for additional dissection time of 1 hour)
3. Direct aortic cannulation using ultrasound and Seldinger technique with a SAJAN guidance verifying true lumen access
4. Moderate hypothermic circulatory arrest with antegrade cerebral perfusion
5. Hemiarch ascending aortic replacement
6. Aortic root replacement using a 27 mm valved conduit
7. Ligation of left and right coronary ostia as they were dissected coronary bypass grafting to an acute marginal
8. Relocation of previous vein grafts onto this acute marginal vein graft
9. Placement of temporary atrial ventricular pacing wires
10. Transesophageal echocardiography
11. Temporary chest packing, open chest.
Impella Placement, 03/08/2025:
Procedure(s) Performed:
1. The temporary dressing over top of the open chest was removed
2. Placement of atrial pacing wires
3. Anastomosis of a 10 mm straight tube graft off of the ascending aortic graft, graft to graft anastomosis
4. Graft tunneled to the left supra clavicular region between the strap muscles
5. Placement of a 5.5 direct aortic Impella LVAD
6. Chest closure in usual fashion
TTE, 03/08/2025:
SUMMARY
1. TDS.
2. In limited views, left ventricle appears normal sized with severely reduced systolic function. Left ventricle ejection fraction is 25-30% by visual estimation. Global hypokinesis. S/p Impella 5.5 insertion which appears to be appropriately
placed.
3. In limited views right ventricle appears normal sized with mildly reduced systolic function. Right ventricle does appear to expand in diastole.
4. Limited valvular interrogation.
5. Compared to SAJAN earlier in day, overall, no significant change.
Bedside Rexploration, 03/08/2025:
Procedure: Emergency bedside reopening of chest and the loculation of clot ligation of IAN which was the bleeding source, repacking with 1 vaginal pack and Kerlix and replacement of new chest tubes
CT surgery re-exploration, 03/09/2025 (morning):
PROCEDURES:
1. Mediastinal reexploration/irrigation and removal of packing.
2. Repositioning of proximal course of greater saphenous vein graft
with several 6-0 Prolene sutures (placed/subsequently removed).
3. Placement of 6 mm ringed PTFE graft around proximal segment of
greater saphenous vein graft .
4. Replacement of new mediastinal packing (1 vaginal pack and
partial roll of Kerlix; syringe based sternal separation).
5. Reexploration with replacement of new open chest dressing.
CT surgery re-exploration, 03/09/2025 (afternoon):
Procedure(s) Performed:
1. Reopening of temporary chest coverage.
2. Ligation of IAN.
3. Coronary artery bypass grafting x 1 (Aortic Graft to RSVG to RSVG - T-graft).
4. Open vein harvest of the left thigh.
5. Transesophageal echocardiography.
6. Repacking of chest and placement of temporary dressing.
Physical Exam
Vital Signs/Labs
Vital Signs
Temp Pulse Resp BP Pulse Ox
97.5 F 98 20 125/87 90
03/23/25 04:00 03/23/25 09:00 03/23/25 04:00 03/23/25 02:10 03/23/25 08:20
03/22/25 03/23/25 03/24/25
06:59 06:59 06:59
Actual Weight 93.5 kg 91.2 kg
03/23/25 02:30
03/23/25 02:30
PT 18.5 Sec (11.4-14.6) H 03/14/25 04:33
INR 1.52 03/14/25 04:33
APTT Cancelled 03/22/25 17:33
Magnesium 2.3 mg/dl (1.6-2.3) 03/23/25 02:30
Triglycerides 111 mg/dl (10-149) 03/13/25 04:21
03/04/25
15:44
Ttl-F-Larkdibnbmo Pept 2970
Physical Exam
Constitutional: No acute distress
EENT: Anicteric
Cardiovascular: Rhythm/rate is irregular, S1S2 is normal and Rub absent
Respiratory: Respiratory effort normal and Lungs clear to auscul.
GI: Soft and Distention absent
Neuro/Psych: Alert
Data Reviewed
-
Date of Service: March 23, 2025
--- NOTE | 2025-03-23 11:15 | W.PN.NEPH.PH ---
Today's Communication / Plan
-
diurese
Assessment/Plan
-
Impression:
Acute type A Aortic dissection with involvement of bilateral coronary ostia and circumferentially around the root with operative repair on 03/08/25
Acute kidney injury
Postoperative cardiogenic shock now on inotropic support
History of CABG x 4 mitral valve repair tricuspid valve repair maze and EVI exclusion on 02/16/2025
Status post Impella placement on 03/08/2025
Lactic acidosis 12.4
Vent dependent respiratory failure
NSVT
Ischemic cardiomyopathy with EF of 45 to 50%
Atrial fibrillation
History of hypertension
Plan:
Follow BMP
await PEG use
Continue current Bumex dose IV
d/w
-
-
Date of Service: March 23, 2025
CC / HPI / ROS
-
Chief Complaint:
aortic dissection
IRON
History of Present Illness:
CHF cardiogenic shock status post aortic dissection [employer], off dobutamine
BP stable off pressors
IRON/creatinine down to 1.3
Nonoliguric with diuretics
CRRT off 03/11/2025, CVC removed.
hgb stable 9.3
Review of Systems:
non oliguric
No chest pain
wants to eat (failed VSE)
Labs
-
Labs:
WBC 17.9 10^3/uL (4.8-10.8) H 03/23/25 02:30
RBC 3.00 10^6/uL (4.70-6.10) L 03/23/25 02:30
Hgb 9.3 g/dL (13.0-18.0) L 03/23/25 02:30
Hct 31.2 % (39.0-52.0) L 03/23/25 02:30
Plt Count 206 10^3/uL (130-400) 03/23/25 02:30
Sodium 143 mmol/L (135-145) 03/23/25 02:30
Potassium 3.7 mmol/L (3.5-5.1) 03/23/25 02:30
Chloride 111 mmol/L (98-107) H 03/23/25 02:30
Carbon Dioxide 33 mmol/L (22-30) H 03/23/25 02:30
BUN 53 mg/dl (9-20) H 03/23/25 02:30
Creatinine 1.3 mg/dL (0.7-1.3) 03/23/25 02:30
eGFR 57.29 03/23/25 02:30
Glucose 101 mg/dl (70-99) H 03/23/25 02:30
Calcium 8.4 mg/dl (8.4-10.2) 03/23/25 02:30
Kuz-M-Gxawqfcxbyo Pept 2970 pg/ml 03/04/25 15:44
Albumin 2.5 g/dl (3.5-5.0) L 03/18/25 04:02
Physical Exam
-
Vital Signs:
Vital Signs
Temp Pulse Resp BP Pulse Ox
97.5 F 98 20 125/87 90
03/23/25 04:00 03/23/25 09:00 03/23/25 04:00 03/23/25 02:10 03/23/25 08:20
Cardiovascular:: Regular rate and rhythm
Respiratory:: Bilateral: Coarse
Lung Excursion:: Normal
Abdomen:: Nontender and Soft
Bowel Sounds:: Normal
Extremity Edema:: +3: Bilateral:
--- NOTE | 2025-03-23 12:20 | CM ---
Reviewed chart. Met with and Mrs. Law to review discharge plans. We reviewed different levels of rehab. and the role insurance in the decision. We reviewed [facility]. Telephone call to [facility]
Liaison to check on status of referral. Left message. Telephone call to [facility]. Liaison who declined for acute rehab. due to fatigue. Mrs. Law states the [facility] in [place] would be okay with her since her
son resides in [place], [place]. Will start pre-cert process if approved for admission. Medical work-up in progress. The discharge plan is to go to some level of inpatient rehab. if bed available and approved for admission when medically stable.
[2025-03-23 13:26] LABS: Glucose - Point of Care 94 mg/dl (70-99)
--- NOTE | 2025-03-23 14:15 | WOUNDNOTE ---
WOC RN note: Curt Sinclair re: recommend an air mattress at rehab/SNF for pateint. He has a back pressure injury and stage 1 sacral pressure injury.
--- NOTE | 2025-03-23 15:00 | PTCARENOTE ---
mohinder from sttretcher to chair. tolerated well. no additional changes in assessment at this time
--- NOTE | 2025-03-23 16:25 | CON.MD ---
Consultation - Medical
-
Chief Complaint:�CVA after redo sternotomy
�
History of Present Illness:�74-year-old male with PMH (as below) presented to [facility] on 03/04/2025 with worsening shortness of breath and edema after (CABG x 4, MV repair, TV repair, MAZE, and EVI exclusion on 02/16/25). Echocardiogram
noting new moderate to severe aortic insufficiency and was diuresed. Found with acute on chronic heart failure with EF 35-40% ischemic cardiomyopathy. Also with NSVT. Found to have a [place] type a aortic dissection on SAJAN. On 03/07/2025 he had
a redo sternotomy with extensive adhesiolysis, hemiarch ascending aortic replacement, aortic root replacement using valved conduit, ligation of the left and right coronary ostia, relocation of previous vein grafts onto the acute marginal vein graft
with temporary chest packing and chest left open. Postoperatively with shock liver, IRON, and lactic acidosis. On 03/08/2025 he had atrial pacing wires placed. Postoperatively with cardiac tamponade with emergent bedside procedure with sternal
wires cut. Blood clots removed. Required CRRT per nephrology. On 03/09/2025 Dr. Jacobs did a mediastinal reexploration and irrigation with removal of packing repositioning of the proximal course of the greater saphenous vein graft. He had
kinking of the single vein graft and had a ligation of the IAN with CABG x 1 left thigh vein harvest. On 03/11 he had an antibiotic solution washout of all surgical sites, endotracheal bronchoscopy with lavage, and closure. On 03/12 he had
another bronchoscopy with sample sent for culture and removal of aortic Impella. He was placed on Vanco and cefepime for gram-negative rods in the sputum. Extubated 03/14/2025. He had a FEES study noting moderate pharyngeal stage dysphagia and
responsive aspiration with ice chips and thin liquids with recommendation for NPO. Found to have Enterobacter pneumonia and continued on cefepime per infectious disease. Developed desaturation and required BiPAP. Required prolonged bumetanide
diuresis. Dobbhoff feeding tube placed 03/16. Antibiotic switched to Cipro on 03/17/2025 through 03/20. He developed hyponatremia and was placed on D5W. Repeat FEES study 03/18/2025 with continue recommendation of n.p.o. He had a left
thoracentesis on 03/22/25 and a PEG tube placed by Dr. Herbert Edwards. He had a right thoracentesis on 03/23/2025.
�
Past Medical History:�A-fib, CAD, HTN, hypercholesterolemia, hypothyroidism, colon adenoma
Procedure History:�(CABG x 4, MV repair, TV repair, MAZE, and EVI exclusion on 02/16/25), appendectomy, neck lipoma excision
Family History:�Mother and father with cancer. Sister with cervical cancer.
�
Social History:�
Functional Level Premorbidly:�Modified independent with occasional single-point cane
Functional Level Currently:�Mod assist grooming, max assist bed mobility. Max assist transfers. Max assist of 2 to partially stand from edge of bed with bed height raised with quick fatigue.
�
Tobacco:�Former�quit 30 years ago
Alcohol:�Rare
Drug use:�Denies�
�
Lives with:�
24-hour assistance available:�Yes
Number of floors:�2
# steps to enter:�1
# steps to second floor: Full flight
Potential First floor set up:�No
Driving:�Yes
Occupation:�Retired
�
�
Allergies:�
Allergy/AdvReac Type Severity Reaction Status Date / Time
No Known Allergies Allergy Verified 02/10/25 11:39
�
Review of Systems:�
Constitutional: (x) abNormal _ fatigue
Eye: (x) Normal _
Ear/Nose/Throat: (x) Normal _
Respiratory: (x) Normal _
Cardiovascular: (x) Normal _
Gastrointestinal: (x) abNormal _rectal tube
Genitourinary: (x) Normal _
Musculoskeletal: (x) Normal _
Integumentary: (x) abNormal _chest incision, leg incisions
Neurologic: (x) Normal _
Psychiatric: (x) Normal _
Endocrine: (x) Normal _
Hematologic/Lymphatic: (x) Normal _
Allergic/Immunologic: (x) Normal _
�
Medications:�
Active Current Visit Medication List
Category Date Time Status
0.9% Sodium Chloride [Nss (Preservative Free)] Med 03/09/25 08:00 Active
10 ml IV DAILY
Acetaminophen [Tylenol/Feverall] Med 03/07/25 18:09 Active
650 mg RECTAL Q4HPRN PRN
Acetaminophen [Tylenol] Med 03/08/25 09:57 Active
650 mg TUBE Q4HPRN PRN
Acetaminophen [Tylenol] Med 03/08/25 09:58 Active
975 mg TUBE TID@0600,1400,2200
Amiodarone [Pacerone] Med 03/08/25 09:58 Active
200 mg TUBE TID
Apixaban [Eliquis] Med 03/23/25 20:00 Active
5 mg PO BID
Artificial Tears (Pf) [Refresh Eye Drops (Pf)] Med 03/11/25 08:09 Active
1 drops OPHTH QIDPRN PRN
Aspirin Chewable [Low Strength Aspirin] Med 03/08/25 09:58 Active
81 mg TUBE DAILY
Atorvastatin [Lipitor] Med 03/16/25 14:36 Active
40 mg TUBE QPM
Bisacodyl [Dulcolax] Med 03/07/25 18:09 Active
10 mg RECTAL DAILYPRN PRN
Bumetanide [Bumex] Med 03/21/25 08:00 Active
1 mg IV TID
Calcium CHLORIDE [Calcium Chloride 10% Syringe] Med 03/12/25 16:46 Active
500 mg IV PRN PRN
Cyclobenzaprine HCl [Flexeril] Med 03/08/25 10:00 Active
5 mg TUBE Q8HPRN PRN
Dextrose 50%-Water [Dextrose 50% Syringe] Med 03/15/25 07:55 Active
12.5 grams IV [id number] PRN
Flush (0.9% Sodium Chloride) [Flush (Nss)] Med 03/07/25 19:00 Active
See Dose Instructions IV PER PROTOCOL
Glucagon [GlucaGen] Med 03/15/25 07:55 Active
1 mg IM PRN PRN
Guaifenesin Solution [Robitussin] Med 03/16/25 22:00 Active
200 mg TUBE QID
Insulin Aspart Corrective Low [Novolog Flexpen-Low Med 03/15/25 08:00 Active
Resistance]
See Protocol SC Q6
Levothyroxine [Synthroid] Med 03/08/25 10:00 Active
150 mcg TUBE DAILY@0600
Magnesium Hydroxide [Milk of Magnesia] Med 03/08/25 10:01 Active
30 ml TUBE BIDPRN PRN
Metoprolol [Lopressor] Med 03/16/25 20:00 Active
37.5 mg TUBE BID
Ondansetron Injectable [Zofran] Med 03/07/25 18:09 Active
4 mg IV Q8HPRN PRN
Pantoprazole [Protonix IV] Med 03/09/25 08:00 Active
40 mg IV DAILY
Polyethylene Glycol Powder [Miralax] Med 03/14/25 08:00 Active
17 grams TUBE DAILY
Potassium Chloride Powder [Klor-Con] Med 03/17/25 08:00 Active
40 meq PO BID
Sennosides [Senokot] Med 03/08/25 10:01 Active
8.6 mg TUBE Q12
�
Vitals:�
Temp Pulse Resp BP Pulse Ox
98 F 74 18 128/86 95
03/23/25 16:00 03/23/25 16:00 03/23/25 16:00 03/23/25 14:25 03/23/25 16:54
Height 5 ft 11 in
Actual Weight 91.2 kg
Body Mass Index (BMI) 28.1
�
Physical Exam:�
General Appearance/Observation: Well-developed, well-nourished male in no apparent distress.�
Pain/Comfort Assessment: Denies�
Mood/Affect: Appropriate�
�
Integumentary/Operative Site:�strernal dressing, Aquacel both legs, left lower leg with some minimal drainage
Eyes: Conjunctiva/Lids: normal��� Pupils: pupils equal round and reactive to light and Accommodation
Ears/Nose/Throat: oral mucosa dry, throat clear.������������ Lips/Teeth/Gums: normal
Neck: No muscle spasm or tenderness�
Cardiovascular: Heart: regular, no murmur�
Pulses: dorsalis pedis 2+ bilaterally�
Respiratory: Respiratory Effort/Chest Expansion: normal������ Auscultation: Clear to auscultation bilaterally
Gastrointestinal: abdomen not tender, no distension, normal abdominal bowel sounds
Genitourinary: No Buenrostro�
Rectal Exam: Deferred, rectal tube
Extremities:�Edema: mild bilateral LE edema, left UE edema.�Cyanosis: None�Trophic�changes: None
�
Neurology Exam:
Orientation: Alert, Oriented to self, but not year (), not month. [facility] but not [facility]. [facility] is president.�
Memory: Impaired, waxes and wanes
Repetition: Impaired
Comprehension: Impaired
Two step command: Impaired
Cranial Nerves:
�� CNII:�Pupillary light reflex: Intact���Visual Field: Intact
�� CN III, IV, : Extraocular muscles: Intact�
�� CN V:�Facial Sensation�at�Forehead: Intact,�Maxilla: Intact,�Mandible: Intact
�� CN VII:�Facial movement: Symmetric
�� CN VIII:�Hearing: Normal
�� CN IX/X:�Speech & swallow: Hypophonia,�Position of Uvula: Midline
�� CN XI:�Shoulder shrug: Symmetric
�� CN XII:�Tongue protrusion: Midline
Sensory:
�� Light touch: Intact in bilateral upper and lower extremities
�
Reflexes:
�� Babinski: Down going bilaterally
�� Clonus: None
�� Todd: Negative bilaterally�
Cerebellar: Dysmetria/Ataxia: Impaired, trouble following commnds�
Musculoskeletal: Motor: (Manual muscle scale 0-5)�
Muscle SA EF WE EE FF FA HF KE DF EHL PF
Right� NT >3 4 >3 4 4 2 4 4 4 4
Left NT >3 4 >3 4 4 2 4 4 4 4
�
Tone: Normal in all extremities�
Range of Motion: Passively within normal limits in all extremities�
�
Lab Results
Laboratory Data
03/23/25 02:30
03/23/25 02:30
PT 18.5 Sec (11.4-14.6) H 03/14/25 04:33
INR 1.52 03/14/25 04:33
APTT Cancelled 03/22/25 17:33
Total Bilirubin 2.5 mg/dl (0.2-1.3) H 03/18/25 04:02
Direct Bilirubin 1.7 mg/dl (0.0-0.4) H 03/18/25 04:02
AST 52 U/L (17-59) 03/18/25 04:02
ALT 30 U/L (0-50) 03/18/25 04:02
Alkaline Phosphatase 195 U/L (38-126) H 03/18/25 04:02
Total Protein 5.1 g/dl (6.3-8.2) L 03/18/25 04:02
Albumin 2.5 g/dl (3.5-5.0) L 03/18/25 04:02
�
Diagnostic Results:�as per HPI�
�
Assessment
74 y/o M PMH (A-fib, CAD, HTN, hypercholesterolemia, hypothyroidism, colon adenoma) with 02/16/2025 CABG x 4, MV repair, TV repair, MAZE, and EIV exclusion with 03/04/2025 moderate to severe aortic insufficiency with acute on chronic heart failure,
[place] type A aortic dissection s/p 03/07/2025 redo sternotomy with extensive adhesiolysis, hemiarch ascending aortic replacement, aortic root replacement using valved conduit, ligation of the left and right coronary ostia, relocation of previous
vein grafts onto the acute marginal vein graft, cardiac tamponade with emergent surgery, IRON with CRRT, Extubated 03/14/2025, Enterobacter pneumonia, moderate pharyngeal stage dysphagia, 03/22 left thoracentesis, 03/[address] Godinez
Ahmad, and right thoracentesis on 03/23/2025 ----resulting in ADL, ambulatory, and swallow dysfunction
�
? Anoxic brain injury: Waxes and wanes with cognition. Poor attention, trouble with understanding commands at times. Spoke with nursing, renae been having this since first surgery this time. Has had many surgeries. No focal concerns for a CVA on
exam, but UE exam limited with sternal precautions and command following. Swallowing and speech concerns.
-Could be related to anesthesia, but has been rather constant during hospital stay per nurse.
- Avoid sedating medications.
[place] type A aortic dissection: Redo sternotomy with hemiarch ascending aortic replacement, aortic root replacement using valved conduit, ligation of the left and right coronary ostia, relocation of previous vein grafts onto the acute marginal
vein graft
Cardiac tamponade: Resolved with emergent surgery
IRON: Improving status post CRRT and extensive diuresis.
Moderate pharyngeal stage dysphagia: N.p.o. S/p PEG 04/12.
Bilateral pleural effusions: Status post thoracentesis left 03/22 and right 03/23
HTN: continue medications, monitor closely�
HLD: Statin�
Coronary artery disease: Aspirin, statin, beta-frantz. CABG times 02/16/25
Atrial fibrillation/flutter: Eliquis anticoagulation and rate control with amiodarone and metoprolol.������������������������������������������
CHF: EF 35�40%, beta frantz, monitor fluid status�
Hypothyroidism: levothyroxine�
Enterobacter pneumonia PNA: Completed course of antibiotics. Monitor Leukocytosis
Postoperative Anemia: monitor.�
Leukocytosis: Monitor
�
Psych:Monitor mood, medications as needed.� Avoid sedating medications
Skin: monitor for pressure sores/rashes/lesions.�
Pain: acetaminophen as needed.�
Bowel: Monitor bowels on tube feeds. Has rectal tube. Medications as needed.�
Bladder: Time void, PVRs, PRN straight cath.�
GI Prophylaxis: Pantoprazole�
DVT Prophylaxis: Mechanical and Eliquis
Pulmonary: Incentive spirometry�
Safety: Continue to reinforce assistance with all transfers.�
Code Status:� Full code
Dispo�(date/plan/equipment needs): Home with family care.� Social history reviewed.�
Functional and Medical Goals:�Modified Independent with ADL�s, ambulation, transfers�
Discharge Destination:�Not ready for post acute therapy at this time, anticipate he will need acute rehab once medically stable.�
A total of 60 minutes were spent with the patient preparing for the evaluation, obtaining history, performing examination and evaluation, counseling, data review, case management, care coordination, parts order and stock clerk, and EMR documentation.
�
Thank you for allowing me to care for your patient. Please contact me with any questions or concerns.
Consultation
-
Date/Time Consultation Requested: 03/21/25
Date/Time Consultation Performed: 03/23/23
Requesting Provider: Dr. Ilan Sullivan
Performing Provider: Dr. Spike Blackmon
Reason for Consultation: Rehabilitation program
[2025-03-23] MEDS: LIPITOR 40 MG TUBE (18:23)
[2025-03-23 18:31] LABS: Glucose - Point of Care 113 mg/dl (70-99)
[2025-03-23] MEDS: ELIQUIS 5 MG PO (19:49)
--- NOTE | 2025-03-23 20:00 | PTCARENOTE ---
Assumed care of patient at 1900. Patient found oob in chair at time of assessment with son at bedside. Patient is alert oriented only to person, follows commands appropriately, moves all extremities. Patient is confused and forgetful at times. Lung
sounds are diminished in the bases, sao2 95% on RA. Heart sounds are audible with irregular apical rate, patient is aflutter with BB on the monitor. Patient has normal palpable radial pulses and dorsalis pedis pulses are present with doppler.
Patient has +1 generalized anasarca, +2 BLE, +2 LUE and +1 scrotal edema. Patient has active BS, there is a rectal tube in place draining brown diarrhea, patient has PEG tube receiving 1.2 osmolite TF at 20mL/hr, and male PW draining clear yellow
urine. There is a sternal incision with 4x4 gauze and ABD dressing that is CDI, medial CT wounds with 4x4 gauze dressing CDI, L lateral CT wound KRYSTYNA, L lateral CT wound with foam dressing CDI. There is a R arm PICC with no current infusion. Patient
mohinder lifted from chair back to bed without incident. Bed alarm activated for patient safety.
[2025-03-23 23:15] LABS: Glucose - Point of Care 89 mg/dl (70-99)
[2025-03-24] VITALS (17 sets, daily range): BP systolic 114–154; BP diastolic 67–105; PULSE 68; O2SAT 93; BMI 27.3
--- NOTE | 2025-03-24 | PTCARENOTE ---
Addendum entered by Amari Olivas RN 03/24/25 04:46:
Tube feed increased to 40mL/hr at 0000
Original Note:
Patient reassessed. VSS. Patient picking at tubes and gown. Patient able to be redirected tubes repositioned to prevent patient from potentially pulling at. Remains aflutter BBB on the monitor.
[2025-03-24] MEDS: NOVOLOG FLEXPEN-LOW RESISTANCE SC ×5 (00:53→23:34)
--- NOTE | 2025-03-24 04:00 | PTCARENOTE ---
Patient reassessed. AM hygiene care provided. AM labs obtained. Pending mohinder transfer to chair. All preventive foams changed sacrum inspected no bed sores assessed. Call bustillos within reach.
[2025-03-24 04:02] LABS: Hematocrit 32.4 % (39.0-52.0); Hemoglobin 9.5 g/dL (13.0-18.0); Mean Corp Hgb Conc. 29.3 g/dL (33.0-37.0); Mean Corpuscular Volume 104.5 fL (80.0-94.0); Platelet Count 197 10^3/uL (130-400); Red Cell Dist. Width 22.0 % (11.5-14.5)
[2025-03-24 04:25] LABS: Blood Urea Nitrogen 57 mg/dl (9-20); Calcium 8.3 mg/dl (8.4-10.2); Carbon Dioxide 33 mmol/L (22-30); Chloride 113 mmol/L (98-107); Estimated Creatinine Clearance 57 ml/min; Glucose 131 mg/dl (70-99); Magnesium 2.3 mg/dl (1.6-2.3); Potassium 3.7 mmol/L (3.5-5.1); Sodium 143 mmol/L (135-145); eGFR > 60.00
--- NOTE | 2025-03-24 06:27 | W.PN.CD ---
Today's Communication / Plan
-
continue on diuretic and monitor weight and renal function.
Impression / Plan
-
Background: 74 yo male with PMH of ICM EF 35-40%, chronic HFrEF, persistent A fib on eliquis, HTN, CAD s/p CABG x 4, MV repair, TV repair, MAZE, and EVI exclusion with Dr. Sullivan (02/16/25); admitted on 03/04/2025 with acute on chronic HFrEF,
subsequently found to have severe AR due to [place] type A aortic dissection.
Aortic dissection
- Very complex hospital course
- Improving
CAD s/p CABG x 4, MV repair, TV repair, MAZE, and EVI exclusion with Dr. Sullivan (02/16/25)
HFrEF/Ischemic cardiomyopathy (LVEF 25 to 30% by echo 03/08/2025
- Slowly will add GDMT
- remains on diuretic . weight trending down
Anemia, Hgb stable. 3 U PRBC transfused this admit
Pneumonia => off ATB. WBC declining
Atrial fibrillation and 2:1 Flutter (likely atypical)
- On Amio
- Eliquis
- rate controlled
Acute renal and liver dysfxn improved
Mentation: Oriented to person/hospital, month, off by 1 day of week
Subjective/Interval History:
Feeling stronger
DATA:
TTE, 03/04/2025:
SUMMARY
1. Moderately reduced LV systolic function. Ejection fraction is 35-40%. Global hypokinesis.
2. S/p mitral valve repair with peak/mean gradients of 15/5 mmHg. Trace mitral valve regurgitation.
3. Moderate/severe aortic regurgitation. PHT approx 250 msec.
4. S/p tricuspid valve repair with mean gradient of 2 mmHg. Mild tricuspid regurgitation. Estimated PASP 38 mmHg, assuming RAP 8 mmHg. Mildly elevated PASP.
5. Compared to 02/19/25: LVEF is stable in 35-40% range, mitral valve and tricuspid valve repairs are stable; aortic regurgitation has progressed from mild/moderate to moderate/severe.
SAJAN, 03/07/2025:
SUMMARY
1. There is a [place] type A [place] class I aortic dissection present.
2. Trileaflet aortic valve. Severe aortic regurgitation due to prolapse of the left vs non coronary cusp and aortic dissection.
3. Low normal ventricular systolic function. LVEF 45-50%.
4. S/p tricuspid valve repair. Trace residual tricuspid regurgitation.
5. S/p mitral valve repair. Trace residual mitral regurgitation.
6. Dr. Sullivan (CT surgery) notified of findings at time of study.
CT surgery, 03/07/2025:
Procedure(s) Performed:
1. Ultrasound-guided access using Seldinger technique 2 the right common femoral artery and vein with percutaneous access using a 25 [place] femoral venous cannula
2. Redo sternotomy with extensive adhesiolysis (Modifier 22 for additional dissection time of 1 hour)
3. Direct aortic cannulation using ultrasound and Seldinger technique with a SAJAN guidance verifying true lumen access
4. Moderate hypothermic circulatory arrest with antegrade cerebral perfusion
5. Hemiarch ascending aortic replacement
6. Aortic root replacement using a 27 mm valved conduit
7. Ligation of left and right coronary ostia as they were dissected coronary bypass grafting to an acute marginal
8. Relocation of previous vein grafts onto this acute marginal vein graft
9. Placement of temporary atrial ventricular pacing wires
10. Transesophageal echocardiography
11. Temporary chest packing, open chest.
Impella Placement, 03/08/2025:
Procedure(s) Performed:
1. The temporary dressing over top of the open chest was removed
2. Placement of atrial pacing wires
3. Anastomosis of a 10 mm straight tube graft off of the ascending aortic graft, graft to graft anastomosis
4. Graft tunneled to the left supra clavicular region between the strap muscles
5. Placement of a 5.5 direct aortic Impella LVAD
6. Chest closure in usual fashion
TTE, 03/08/2025:
SUMMARY
1. TDS.
2. In limited views, left ventricle appears normal sized with severely reduced systolic function. Left ventricle ejection fraction is 25-30% by visual estimation. Global hypokinesis. S/p Impella 5.5 insertion which appears to be appropriately
placed.
3. In limited views right ventricle appears normal sized with mildly reduced systolic function. Right ventricle does appear to expand in diastole.
4. Limited valvular interrogation.
5. Compared to SAJAN earlier in day, overall, no significant change.
Bedside Rexploration, 03/08/2025:
Procedure: Emergency bedside reopening of chest and the loculation of clot ligation of IAN which was the bleeding source, repacking with 1 vaginal pack and Kerlix and replacement of new chest tubes
CT surgery re-exploration, 03/09/2025 (morning):
PROCEDURES:
1. Mediastinal reexploration/irrigation and removal of packing.
2. Repositioning of proximal course of greater saphenous vein graft
with several 6-0 Prolene sutures (placed/subsequently removed).
3. Placement of 6 mm ringed PTFE graft around proximal segment of
greater saphenous vein graft .
4. Replacement of new mediastinal packing (1 vaginal pack and
partial roll of Kerlix; syringe based sternal separation).
5. Reexploration with replacement of new open chest dressing.
CT surgery re-exploration, 03/09/2025 (afternoon):
Procedure(s) Performed:
1. Reopening of temporary chest coverage.
2. Ligation of IAN.
3. Coronary artery bypass grafting x 1 (Aortic Graft to RSVG to RSVG - T-graft).
4. Open vein harvest of the left thigh.
5. Transesophageal echocardiography.
6. Repacking of chest and placement of temporary dressing.
Physical Exam
Vital Signs/Labs
Vital Signs
Temp Pulse Resp BP Pulse Ox
97.8 F 77 18 121/77 93
11/06/25 04:00 03/24/25 04:40 03/24/25 04:00 03/24/25 03:27 03/24/25 04:00
03/22/25 03/23/25 03/24/25
06:59 06:59 06:59
Actual Weight 93.5 kg 91.2 kg
03/24/25 03:26
03/24/25 03:26
PT 18.5 Sec (11.4-14.6) H 03/14/25 04:33
INR 1.52 03/14/25 04:33
APTT Cancelled 03/22/25 17:33
Magnesium 2.3 mg/dl (1.6-2.3) 03/24/25 03:26
Triglycerides 111 mg/dl (10-149) 03/13/25 04:21
03/04/25
15:44
[id number] Pept 2970
Physical Exam
Constitutional: No acute distress
EENT: Anicteric
Cardiovascular: Rhythm/rate is irregular and Other (strenal dressing)
Respiratory: Wheeze Absent and Crackles Absent
GI: Soft and Non tender
Neuro/Psych: Alert and Oriented
Other: Other (bilt lower extremity edema , mild)
Data Reviewed
-
Date of Service: March 24, 2025
Medical Decision Making: Reviewed Test Results
Echo: Report Reviewed by me
Medical Tests (PFT, Pathology etc): Report Reviewed by me
Labs: Labs Reviewed by me
[2025-03-24 06:40] LABS: Glucose - Point of Care 95 mg/dl (70-99)
[2025-03-24] MEDS: TYLENOL TUBE ×2 (06:49→14:12)
[2025-03-24] MEDS: SYNTHROID 150 MCG TUBE (06:50)
[2025-03-24] MEDS: LOPRESSOR 37.5 MG TUBE ×2 (07:48→20:24)
[2025-03-24] MEDS: MIRALAX 17 GRAMS TUBE (07:49)
[2025-03-24] MEDS: PACERONE 200 MG TUBE ×3 (07:49→21:55)
[2025-03-24] MEDS: SENOKOT 8.6 MG TUBE ×2 (07:49→20:24)
--- NOTE | 2025-03-24 08:00 | PTCARENOTE ---
Assumed care of patient from prev RN. Patient is alert sitting in chair at time of assessment. moves all extremities. Oriented to self and time. occasionally to place. knows his surgeon and many details about his life. Remains forgetful at times.
95% on RA. tolerating ice chips. +Heart sounds aflutter with BBB on the monitor. HR 70s. +radial pulses and DPs by doppler. +1-2 generalized anasarca. scrotal edema present. hyperactive BS. with rectal tube draining liquid stool. PEG tube with TF
at 40mL/hr, and external male catheter draining clear yellow urine. all surgical sites c/d/i. R DL PICC present and patent. will continue to monitor.
[2025-03-24] MEDS: ROBITUSSIN 200 MG TUBE ×3 (08:02→21:55)
[2025-03-24] MEDS: PROTONIX IV 40 MG IV (08:06)
[2025-03-24] MEDS: KLOR-CON 40 MEQ PO ×2 (08:06→20:25)
[2025-03-24] MEDS: BUMEX 1 MG IV ×3 (08:06→21:58)
--- NOTE | 2025-03-24 08:14 | W.PN.CT ---
Today's Communication / Plan
-
-pod #17
-no issues overnight
-pt is not sleeping nights, ? - consider Psych eval
-s/p PEG tube 03/22 - TF re-started
-s/p L thoracentesis on 03/22 (650 cc out) and R thoracentesis on 03/23 (1700 cc out dark geovanna fluid)
-Eliquis re-started 03/23
-continue current meds
-plan to d/c to acute rehab when bed is available
-appreciate everyone's input
Assessment / Plan
-
Assessment:
-S/p Emergent Redo sternotomy with extensive adhesiolysis (Modifier 22 for additional dissection time of 1 hour)/Hemiarch ascending aortic replacement/ Aortic root replacement using a 27 mm valved conduit/Ligation of left and right coronary ostia as
they were dissected coronary bypass grafting to an acute marginal/Relocation of previous vein grafts onto this acute marginal vein graft/Temporary chest packing, open chest, by Dr. Sullivan, 03/07/25, pod#17
-S/p placement of a 5.5 direct aortic Impella LVAD on 03/08/[address] Sullivan
-Cardic tamponade/ Cardiovascular collapse- s/p Emergency bedside reopening of chest and the evacuation of clot; ligation of IAN, which was the bleeding source; repacking with 1 vaginal pack and Kerlix; replacement of new chest tubes by Dr. Sullivan on
03/08/25
S/p�mediastinal�reexploration/irrigation and placement of�6mm�ringed PTFE graft around the greater�saphaenous�graft. ���S/P�Emergent�Ligation of IAN, Coronary artery bypass grafting x 1 (Aortic Graft to RSVG to RSVG - T-graft)�03/09
-S/P Washout with antibiotic solution inspection of all surgical sites and closure with wires and plates, by Dr. Sullivan, 03/11/25
-S/P Endotracheal bronchoscopy with lavage, by Dr. Carpenter, 03/07/25
-S/p Impella was weaned and d/c'd at bedside by Dr. Sullivan 03/12/25
-S/P Bronchoscopy at bedside by Dr. Sullivan 03/12/25
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
-Worsening of aortic valve insufficiency to severe secondary to dissection
-Acute on chronic congestive heart failure with volume overload secondary to new aortic valve insufficiency
-Hypertension
-Hyperlipidemia
-Hypothyroidism
-AFIB on Eliquis
-Ischemic CM
-Recent cardiac surgery over 20 days ago
-Mitral valve insufficiency status post repair
-Tricuspid insufficiency status post repair
-Coronary artery disease status post CABG
-S/P CABG x 4, MV repair, TV repair, MAZE, and EVI exclusion, Dr. Sullivan 02/16/25, Readmitted for SOB on 03/04
-Acute intraop/postop blood loss/Anemia (transfused 14u PRBC's)
-Acute intraop and postop coagulopathy (Administered 10mg Factor VII, 4 of cryo and 11 FFP ); chest packed and kept opened until 03/11/25
-Acute postop thrombocytopenia (transfused 11 {5pks} plts)
-Acute postop Pulmonary insufficiency
-Acute postop VDRF
-Acute postop Metabolic Acidosis, followed by metabolic alkalosis
-Acute postop Lactic acidosis
-IRON
-Cardiac tamponade 03/08/25
-Acute postop cardiogenic shock
-Acute postop scrotal edema
-Acute postop a-fib
-Acute postop hypernatremia
Discussed patient care with: Nursing and Care Team
Subjective
-
Date of Service: March 24, 2025
Objective Data
-
Lab Results
03/24/25 03:26
03/24/25 03:26
PT 18.5 Sec (11.4-14.6) H 03/14/25 04:33
INR 1.52 03/14/25 04:33
APTT Cancelled 03/22/25 17:33
Vital Signs
Vital Signs
Temp Pulse Resp BP Pulse Ox
97.8 F 71 18 121/77 93
03/24/25 04:00 03/24/25 07:48 03/24/25 04:00 03/24/25 03:27 03/24/25 04:00
CT Intake/Output/Weight
03/23/25 03/24/25 03/24/25
18:59 06:59 18:59
Intake Total 660 / 660
Output Total 250 / 1500 1250 / 1500
Balance -250 / -840 -590 / -840
SaO2: 93
Physical Exam
-
General: Awake
Extremities: Edema +2
Constitutional: No acute distress
EENT: Anicteric
Cardiovascular: Rhythm/rate is irregular, S1S2 is normal and Rub absent
Respiratory: Respiratory effort normal and Lungs clear to auscul.
GI: Soft and Distention absent
Neuro/Psych: Alert
Data Reviewed
-
Lab Results: Results Reviewed
Medications: Active Meds Reviewed
Chest X-Ray: Report Reviewed and Image Reviewed
ECG: Report Reviewed and Image Reviewed
[2025-03-24] MEDS: NSS (PRESERVATIVE FREE) 10 ML IV (08:26)
[2025-03-24] MEDS: LOW STRENGTH ASPIRIN 81 MG TUBE (08:28)
[2025-03-24] MEDS: ELIQUIS 5 MG PO ×2 (08:28→20:25)
--- NOTE | 2025-03-24 08:28 | WOUNDNOTE ---
L GROIN/THIGH (ANTERIOR)
--- NOTE | 2025-03-24 08:29 | WOUNDNOTE ---
R ABDOMEN (LOWER LATERAL)
--- NOTE | 2025-03-24 08:32 | WOUNDNOTE ---
[facility] RN Note: Patient in recliner chair with air chair cushion. R upper back is not a DTI, looks like a resolving bruise vs stage 1 pressure injury, red ecchymotic in appearance. L back skin tear scabbed healing. L flank broken blister pale pink with
scant serous drainage. Linear red monique on sacrum resolved. R coccyx/buttocks with small red dry abrasion suspect from silicone adhesive vs from sample port from rectal trumpet drainage bag. Silicone border foam applied and covered sample port with
gauze and 6x6 silicone border foam for padding. Confirmed with SEBASTIAN Escalante, patient having loose bowel movements. Sacral shaped silicone border foam maintained on sacrum. Silicone border foam changed on R back and L flank. Sacral shaped silicone
border foam applied to L back healing skin tear. Dry scabbed skin tears on L groin and bilateral abdomen. R medial calf distal incision appears drying than last week and is KRYSTYNA. Ava stated she will apply ABD pad over distal section of R calf
incision. L heel faint purple suspect varicosity vs stage 1 pressure injury. R heel blanchable red. Protective foam dressings maintained. Pillow placed under calves. Patient turned to R semi side lying position with help from SEBASTIAN Escalante. Will follow
as needed. Plan is rehab when discharged.
--- NOTE | 2025-03-24 08:35 | WOUNDNOTE ---
[facility] RN Note: Patient in recliner chair with air chair cushion. R upper back is not a DTI, looks like a resolving bruise vs stage 1 pressure injury, red ecchymotic in appearance. L back skin tear scabbed healing. L flank broken blister pale pink with
scant serous drainage. Linear red monique on sacrum resolved. R coccyx/buttocks with small red dry abrasion suspect from silicone adhesive vs from sample port from rectal trumpet drainage bag. Silicone border foam applied and covered sample port with
gauze and 6x6 silicone border foam for padding. Confirmed with SEBASTIAN Escalante, patient having loose bowel movements. Sacral shaped silicone border foam maintained on sacrum. Silicone border foam changed on R back and L flank. Sacral shaped silicone
border foam applied to L back healing skin tear. 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 Distal section of R medial calf incision slightly open area appears sand drier than last week and is KRYSTYNA. Ava stated she will apply ABD pad
over distal section of R calf incision while SCD sleeves are on. LLE ecchymotic skin less. L heel with faint purple area suspect varicosity vs stage 1 pressure injury. R heel blanchable red. Protective foam dressings maintained. Pillow placed under
calves. Patient turned to R semi side lying position with help from SEBASTIAN Escalante. Current local wound care appropriate. Patient has a feeding tube. Will follow as needed. Plan is rehab when discharged.
--- NOTE | 2025-03-24 10:18 | W.PN.NEPH.PH ---
Today's Communication / Plan
-
follow BMP
Assessment/Plan
-
Impression:
Acute type A Aortic dissection with involvement of bilateral coronary ostia and circumferentially around the root with operative repair on 03/08/25
Acute kidney injury
Postoperative cardiogenic shock now on inotropic support
History of CABG x 4 mitral valve repair tricuspid valve repair maze and EVI exclusion on 02/16/2025
Status post Impella placement on 03/08/2025
Lactic acidosis 12.4
Vent dependent respiratory failure
NSVT
Ischemic cardiomyopathy with EF of 45 to 50%
Atrial fibrillation
History of hypertension
Plan:
Follow BMP
TF in progress
Continue current Bumex dose IV, eventually trial tube bumex
-
-
Date of Service: March 24, 2025
CC / HPI / ROS
-
Chief Complaint:
aortic dissection
IRON
History of Present Illness:
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
BP stable off pressors
IRON/creatinine down to 1.2
Nonoliguric with diuretics, weights down
CRRT off 03/11/2025, CVC removed.
hgb stable 9.5
Review of Systems:
non oliguric
No chest pain
wants to eat (failed VSE)
PEG feeds running
Labs
-
Labs:
WBC 17.8 10^3/uL (4.8-10.8) H 03/24/25 03:26
RBC 3.10 10^6/uL (4.70-6.10) L 03/24/25 03:26
Hgb 9.5 g/dL (13.0-18.0) L 03/24/25 03:26
Hct 32.4 % (39.0-52.0) L 03/24/25 03:26
Plt Count 197 10^3/uL (130-400) 03/24/25 03:26
Sodium 143 mmol/L (135-145) 03/24/25 03:26
Potassium 3.7 mmol/L (3.5-5.1) 03/24/25 03:26
Chloride 113 mmol/L (98-107) H 03/24/25 03:26
Carbon Dioxide 33 mmol/L (22-30) H 03/24/25 03:26
BUN 57 mg/dl (9-20) H 03/24/25 03:26
Creatinine 1.2 mg/dL (0.7-1.3) 03/24/25 03:26
eGFR > 60.00 03/24/25 03:26
Glucose 131 mg/dl (70-99) H 03/24/25 03:26
Calcium 8.3 mg/dl (8.4-10.2) L 03/24/25 03:26
Phosphorus 3.4 mg/dl (2.5-4.5) 03/24/25 03:26
Fez-V-Fzufuaobnhl Pept 2970 pg/ml 03/04/25 15:44
Albumin 2.5 g/dl (3.5-5.0) L 03/18/25 04:02
Physical Exam
-
Vital Signs:
Vital Signs
Temp Pulse Resp BP Pulse Ox
97.8 F 71 18 143/89 93
03/24/25 04:00 03/24/25 08:06 03/24/25 04:00 03/24/25 08:06 03/24/25 08:19
Cardiovascular:: Regular rate and rhythm
Respiratory:: Bilateral: Coarse
Lung Excursion:: Normal
Abdomen:: Nontender and Soft
Bowel Sounds:: Normal
Extremity Edema:: +1: Bilateral:
--- NOTE | 2025-03-24 12:00 | PTCARENOTE ---
wound care done with assitance of aguilar
[2025-03-24 12:18] LABS: Glucose - Point of Care 112 mg/dl (70-99)
[2025-03-24] MEDS: ROBITUSSIN TUBE (14:12)
[2025-03-24] MEDS: LIPITOR 40 MG TUBE (16:56)
[2025-03-24 18:44] LABS: Glucose - Point of Care 123 mg/dl (70-99)
--- NOTE | 2025-03-24 18:47 | PTCARENOTE ---
mohinder lift used to get patient back to bed. patient cleaned up and rectal tube reinserted. son at bedside. VSS. will continue to monitor
--- NOTE | 2025-03-24 21:00 | PTCARENOTE ---
Received patient from daysidft RN, resting comfortably in bed. Oriented to self and place, forgetful and confused at times. A-fib on telemetry. VSS on RA, lungs diminished throughout with occasional, non-productive cough. Incontinent of bowel and
bladder- rectal tube and external catheter in place. Generalized +2 anasarca, scrotal edema present. All surgical dressings C/D/I. NAMRATA PICC patent. Care on going
[2025-03-24] MEDS: TYLENOL 975 MG TUBE (21:55)
[2025-03-24 23:33] LABS: Glucose - Point of Care 128 mg/dl (70-99)
[2025-03-25] VITALS (16 sets, daily range): BP systolic 110–160; BP diastolic 67–88; PULSE 66; O2SAT 95–97; BMI 26.4
--- NOTE | 2025-03-25 04:45 | PTCARENOTE ---
Assessment unchanged from previous. Vital sign trends documented in flowsheet. Patient awake and confused throughout the night, requires frequent reorientation. Continuing with plan of care.
[2025-03-25 05:48] LABS: Blood Urea Nitrogen 56 mg/dl (9-20); Calcium 8.4 mg/dl (8.4-10.2); Carbon Dioxide 33 mmol/L (22-30); Chloride 113 mmol/L (98-107); Estimated Creatinine Clearance 62 ml/min; Glucose 123 mg/dl (70-99); Magnesium 2.2 mg/dl (1.6-2.3); Potassium 3.8 mmol/L (3.5-5.1); Sodium 146 mmol/L (135-145); eGFR > 60.00
[2025-03-25] MEDS: NOVOLOG FLEXPEN-LOW RESISTANCE SC ×4 (06:16→23:41)
[2025-03-25] MEDS: SYNTHROID 150 MCG TUBE (06:17)
[2025-03-25] MEDS: TYLENOL 975 MG TUBE (06:17)
--- NOTE | 2025-03-25 08:00 | PTCARENOTE ---
Assumed care of patient from prev RN. Resting in bed at time of assessment. moves all extremities. weak. attempting to do arm raises in bed. Oriented to self and time. drowsy. forgetful at times. +Heart sounds. aflutter with BBB on the monitor. HR
70s. +radial pulses and DPs by doppler. +1-2 generalized anasarca. scrotal edema present. 96% on RA. non prod cough. tolerating ice chips. hyperactive BS. with rectal tube draining liquid stool. PEG tube with TF at 55mL/hr, and external male
catheter draining clear yellow urine. all surgical sites c/d/i. R DL PICC present and patent. will continue to monitor.
[2025-03-25] MEDS: KLOR-CON 40 MEQ PO ×2 (08:10→20:24)
[2025-03-25] MEDS: LOPRESSOR 37.5 MG TUBE ×2 (08:10→20:23)
[2025-03-25] MEDS: ROBITUSSIN 200 MG TUBE ×4 (08:10→22:32)
[2025-03-25] MEDS: PACERONE 200 MG TUBE (08:11)
[2025-03-25] MEDS: BUMEX 1 MG IV ×3 (08:11→22:32)
[2025-03-25] MEDS: PROTONIX IV 40 MG IV (08:11)
[2025-03-25] MEDS: ELIQUIS 5 MG PO ×2 (08:11→20:24)
[2025-03-25] MEDS: NSS (PRESERVATIVE FREE) 10 ML IV (08:11)
[2025-03-25] MEDS: SENOKOT TUBE (08:12)
[2025-03-25] MEDS: LOW STRENGTH ASPIRIN 81 MG TUBE (08:12)
[2025-03-25] MEDS: KLOR-CON PO (08:12)
--- NOTE | 2025-03-25 08:27 | W.PN.CD ---
Today's Communication / Plan
-
Continue diuresis - he may be nearly intravascularly euvolemic, even if he has edema (due to poor protein concentration).
Tube feeds.
PT/OT.
Disposition planning (LTACH/Acute Rehab, etc).
Impression / Plan
-
Impression/Plan: 74 yo male with PMH of ICM EF 35-40%, chronic HFrEF, persistent A fib on eliquis, HTN, CAD s/p CABG x 4, MV repair, TV repair, MAZE, and EVI exclusion with Dr. Sullivan (02/16/25); admitted on 03/04/2025 with acute on chronic HFrEF,
subsequently found to have severe AR due to Moses type A aortic dissection.
#Aortic dissection
-Acute, Moses type A w/ involvement of b/l Coronary ostia and circumferentially around the root causing severe AI, distally to the Aorto-iliac bifurcation complicated by shock.
-s/p #27 valved conduit and hemiarch replacement, ligation of L and R coronary ostia as they were dissected; bypass grafting to an acute marginal and relocation of previous vein grafts onto acute marginal vein graft.
-Loss of Impella pulsatility lead to TTE guided repositioning. Patient was re-opened at the bedside, revealing clot around the right ventricle and SVG that appeared to compress both. The clot was evacuated (05/08/2025).
-Arterial bleeding was observed from the IAN bed, which was clipped and a sternal wire site which was double ligated with good hemostasis (03/08/2025).
-CI dwindled overnight, improved to 2.06. CONTROLS TECHNICIAN = 0.84 Wilkes. Delphine = 0.8.
-The patient has had several episodes of hypotension, though to be due to compression of the SVG. The patient was taken to OR for placement of a ringed graft to prevent compression (03/09/2025).
-Patient returned to the OR for ligation of the IAN (persistent bleeding) and re-bypass to address the angulation of the original SVG to Diag, which is thought to be leading to his multiple hypotensive episodes (03/09/2025).
-s/p chest closure and Impella removal.
-Thoracentesis x2.
-Post operative course complicated by dysphagia, now s/p PEG.
-Encourage incentive spirometry.
#AMS
-Postoperative.
-Anoxic brain injury vs delerium vs. medication induced?
-Frequent re-orienting. Nursing reports significant improvement this AM.
#CAD
-Chronic, progressive.
-s/p CABG x 4, MV repair, TV repair, MAZE, and EVI exclusion with Dr. Sullivan (02/16/25).
-CABG anatomy has been altered due to compression/ischemia after dissection repair.
-The current anatomy is MAGANA to LAD, SVG from Ao graft to SVG to diagonal, sequential SVG Y-graft from diagonal graft to OM1 to LPL.
-Secondary prevention as tolerated.
#HFrEF/ICMO
-LV ejection fraction 25 to 30% by echo 03/08/2025.
-GDMT when hemodynamics will tolerate:
-Diuretics: Bumetanide 1 mg IV TID.
-Beta frantz: Metoprolol tartrate 37.5 mg BID.
-ACEI/ARB/ARNi: Blood pressure and IORN have improved would consider addition of low-dose of valsartan.
-MRA: On hold due to BP/IRON.
-SGLT2i:O n hold until additional recovery.
-ICD: Not currently indicated.
#Anemia
-Post operative.
-Continue to monitor.
#PNA
-Acute.
-Respiratory culture positive for Enterobacter amnigenus (Amoxicillin-R, Amoxicillin/Clavulanate-R, Ampicillin/Sulbactam-R, Cefazolin-R, Ceftriaxone-I).
-Resolved.
#Atrial fibrillation
-Persistent.
-Currently in atrial flutter.
-Rate/rhythm control with amiodarone, s/p MAZE with Dr. Sullivan, 02/16/2025.
-CHADS2-Vasc = 5 (CHF, HTN, Age x2, vascular disease).
-Anti-thrombotic therapy with apixaban 2.5 mg BID, S/P LAAE (#40 AtriClip, SN [id number]) with Dr. Sullivan, 02/16/2025.
#IORN
-Improving (high of 2.5), creatinine now 1.3.
-Nephrology has consulted this admission.
-Continue diuresis and monitor Na.
-TF will help with low protein and low oncotic pressure.
Subjective/Interval History:
Stable.
DATA:
TTE, 03/04/2025:
SUMMARY
1. Moderately reduced LV systolic function. Ejection fraction is 35-40%. Global hypokinesis.
2. S/p mitral valve repair with peak/mean gradients of 15/5 mmHg. Trace mitral valve regurgitation.
3. Moderate/severe aortic regurgitation. PHT approx 250 msec.
4. S/p tricuspid valve repair with mean gradient of 2 mmHg. Mild tricuspid regurgitation. Estimated PASP 38 mmHg, assuming RAP 8 mmHg. Mildly elevated PASP.
5. Compared to 02/19/25: LVEF is stable in 35-40% range, mitral valve and tricuspid valve repairs are stable; aortic regurgitation has progressed from mild/moderate to moderate/severe.
SAJAN, 03/07/2025:
SUMMARY
1. There is a [place] type A DeBakey class I aortic dissection present.
2. Trileaflet aortic valve. Severe aortic regurgitation due to prolapse of the left vs non coronary cusp and aortic dissection.
3. Low normal ventricular systolic function. LVEF 45-50%.
4. S/p tricuspid valve repair. Trace residual tricuspid regurgitation.
5. S/p mitral valve repair. Trace residual mitral regurgitation.
6. Dr. Sullivan (CT surgery) notified of findings at time of study.
CT surgery, 03/07/2025:
Procedure(s) Performed:
1. Ultrasound-guided access using Seldinger technique 2 the right common femoral artery and vein with percutaneous access using a 25 [place] femoral venous cannula
2. Redo sternotomy with extensive adhesiolysis (Modifier 22 for additional dissection time of 1 hour)
3. Direct aortic cannulation using ultrasound and Seldinger technique with a SAJAN guidance verifying true lumen access
4. Moderate hypothermic circulatory arrest with antegrade cerebral perfusion
5. Hemiarch ascending aortic replacement
6. Aortic root replacement using a 27 mm valved conduit
7. Ligation of left and right coronary ostia as they were dissected coronary bypass grafting to an acute marginal
8. Relocation of previous vein grafts onto this acute marginal vein graft
9. Placement of temporary atrial ventricular pacing wires
10. Transesophageal echocardiography
11. Temporary chest packing, open chest.
Impella Placement, 03/08/2025:
Procedure(s) Performed:
1. The temporary dressing over top of the open chest was removed
2. Placement of atrial pacing wires
3. Anastomosis of a 10 mm straight tube graft off of the ascending aortic graft, graft to graft anastomosis
4. Graft tunneled to the left supra clavicular region between the strap muscles
5. Placement of a 5.5 direct aortic Impella LVAD
6. Chest closure in usual fashion
TTE, 03/08/2025:
SUMMARY
1. TDS.
2. In limited views, left ventricle appears normal sized with severely reduced systolic function. Left ventricle ejection fraction is 25-30% by visual estimation. Global hypokinesis. S/p Impella 5.5 insertion which appears to be appropriately
placed.
3. In limited views right ventricle appears normal sized with mildly reduced systolic function. Right ventricle does appear to expand in diastole.
4. Limited valvular interrogation.
5. Compared to SAJAN earlier in day, overall, no significant change.
Bedside Rexploration, 03/08/2025:
Procedure: Emergency bedside reopening of chest and the loculation of clot ligation of IAN which was the bleeding source, repacking with 1 vaginal pack and Kerlix and replacement of new chest tubes
CT surgery re-exploration, 03/09/2025 (morning):
PROCEDURES:
1. Mediastinal reexploration/irrigation and removal of packing.
2. Repositioning of proximal course of greater saphenous vein graft
with several 6-0 Prolene sutures (placed/subsequently removed).
3. Placement of 6 mm ringed PTFE graft around proximal segment of
greater saphenous vein graft .
4. Replacement of new mediastinal packing (1 vaginal pack and
partial roll of Kerlix; syringe based sternal separation).
5. Reexploration with replacement of new open chest dressing.
CT surgery re-exploration, 03/09/2025 (afternoon):
Procedure(s) Performed:
1. Reopening of temporary chest coverage.
2. Ligation of IAN.
3. Coronary artery bypass grafting x 1 (Aortic Graft to RSVG to RSVG - T-graft).
4. Open vein harvest of the left thigh.
5. Transesophageal echocardiography.
6. Repacking of chest and placement of temporary dressing.
Physical Exam
Vital Signs/Labs
Vital Signs
Temp Pulse Resp BP Pulse Ox
36.5 C 72 16 132/73 96
03/25/25 08:00 03/25/25 08:10 03/25/25 08:00 03/25/25 08:10 03/25/25 08:00
03/23/25 03/24/25 03/25/25
11:59 11:59 11:59
Actual Weight 91.2 kg 88.7 kg 85.8 kg
03/24/25 03:26
03/25/25 05:08
PT 18.5 Sec (11.4-14.6) H 03/14/25 04:33
INR 1.52 03/14/25 04:33
APTT Cancelled 03/22/25 17:33
Magnesium 2.2 mg/dl (1.6-2.3) 03/25/25 05:08
Triglycerides 111 mg/dl (10-149) 03/13/25 04:21
03/04/25
15:44
Trm-Q-Tlixedhiekm Pept 2970
Physical Exam
Constitutional: No acute distress and Comfortable
EENT: Anicteric and Moist mucous membranes
Cardiovascular: JVD pressure is normal, Pedal edema present (Mild - 1+.), S1S2 is normal and Murmur/rub/gallop absent
Respiratory: Respiratory effort normal, Lungs clear to auscul., Wheeze Absent, Crackles Absent and Rhonchi Absent
GI: Soft, Distention absent, Flat, Non tender, Normal bowel sounds and Other (PEG tube in place.)
Neuro/Psych: Alert and Oriented
Data Reviewed
-
Date of Service: March 25, 2025
Medical Decision Making: Reviewed Test Results, Independent Historian Assessment and Test Interpretation
EKG: Tracing Personally Visualized and interpreted and Report Reviewed by me
Echo: Tracing Personally Visualized and interpreted and Report Reviewed by me
X-Ray/CT/US/MRI/NUC/PET: Image Personally Visualized and interpreted and Report Reviewed by me
Medical Tests (PFT, Pathology etc): Report Reviewed by me
Labs: Labs Reviewed by me
Old Records: Reviewed
--- NOTE | 2025-03-25 09:07 | W.PN.CT ---
Addendum entered and electronically signed by Oscar Jacobs MD 03/26/25 09:26:
I saw and examined the patient.
The PA's note was reviewed and I agree with the note.
Comment:
HITESH [id number]:
POD#18 s/p repair of ATAAD, POD#17 s/p Impella 5.5 � open chest/washout, POD#16 s/p washout, CABG x 1, POD#14 s/p chest closure, POD#13 s/p Impella removal, POD#4 s/p PEG
No issues overnight.� AVSS.� RA.� No gtts.� No drains.� PEG TF: 55/hr, 25/hr free water.� UO: 800 last 12 hours, 2000mL total.� NPO.� Neuro: intact.�
-��������� Increase free water (Na 147)
-��������� Continue bumex
-��������� OOB to chair today, PT/OT
-��������� LTAC D/C planned for this Friday
Original Note:
Today's Communication / Plan
-
pod #18
- continue IV Bumex
- DC ATC Tylenol
- Decrease Amio to 200mg daily
- OOB>chair
- awaiting LTAC placement
Assessment / Plan
-
Assessment:
-S/p Emergent Redo sternotomy with extensive adhesiolysis (Modifier 22 for additional dissection time of 1 hour)/Hemiarch ascending aortic replacement/ Aortic root replacement using a 27 mm valved conduit/Ligation of left and right coronary ostia as
they were dissected coronary bypass grafting to an acute marginal/Relocation of previous vein grafts onto this acute marginal vein graft/Temporary chest packing, open chest, by Dr. Sullivan, 03/07/25, pod#18
-S/p placement of a 5.5 direct aortic Impella LVAD on 03/08/[address] Sullivan
-Cardiac tamponade/ Cardiovascular collapse- s/p Emergency bedside reopening of chest and the evacuation of clot; ligation of IAN, which was the bleeding source; repacking with 1 vaginal pack and Kerlix; replacement of new chest tubes by Dr. Sullivan
on 03/08/25
S/p�mediastinal�reexploration/irrigation and placement of�6mm�ringed PTFE graft around the greater�saphaenous�graft. ���S/P�Emergent�Ligation of IAN, Coronary artery bypass grafting x 1 (Aortic Graft to RSVG to RSVG - T-graft)�03/09
-S/P Washout with antibiotic solution inspection of all surgical sites and closure with wires and plates, by Dr. Sullivan, 03/11/25
-S/P Endotracheal bronchoscopy with lavage, by Dr. Carpenter, 03/07/25
-S/p Impella was weaned and d/c'd at bedside by Dr. Sullivan 03/12/25
-S/P Bronchoscopy at bedside by Dr. Sullivan 03/12/25
-s/p left thoracentesis 03/22
- s/p PEG 03/22
- s/p right thoracentesis 03/23
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
-Worsening of aortic valve insufficiency to severe secondary to dissection
-Acute on chronic congestive heart failure with volume overload secondary to new aortic valve insufficiency, requiring mechanical cardiac support with Impella 5.5
-Hypertension
-Hyperlipidemia
-Hypothyroidism
-AFIB on Eliquis
-Ischemic CM
-Recent cardiac surgery over 20 days ago
-Mitral valve insufficiency status post repair
-Tricuspid insufficiency status post repair
-Coronary artery disease status post CABG
-S/P CABG x 4, MV repair, TV repair, MAZE, and EVI exclusion, Dr. Sullivan 02/16/25, Readmitted for SOB on 03/04
-Acute intraop/postop blood loss/Anemia (transfused 14u PRBC's)
-Acute intraop and postop coagulopathy (Administered 10mg Factor VII, 4 of cryo and 11 FFP ); chest packed and kept opened until 03/11/25
-Acute postop thrombocytopenia (transfused 11 {5pks} plts)
-Acute postop Pulmonary insufficiency
-Acute postop VDRF
-Acute postop Metabolic Acidosis, followed by metabolic alkalosis
-Acute postop Lactic acidosis
-IRON
-Cardiac tamponade 03/08/25
-Acute postop cardiogenic shock with MCS
-Acute postop edema
-Acute postop a-fib
-Acute postop hypernatremia
-acute post-op pleural effusions
- acute postop dysphagia (d/t VDRF)
Discussed patient care with: Cardiology, Nursing, Respiratory Therapy, Pharmacy and Care Team
Subjective
Procedure
Past 24 hrs: OOB>chair. Stool softeners discontinued and rectal tube with decreased drainage. Tolerating tube feeds at goal rate.
-
Date of Service: March 25, 2025
Objective Data
-
Lab Results
03/24/25 03:26
03/25/25 05:08
PT 18.5 Sec (11.4-14.6) H 03/14/25 04:33
INR 1.52 03/14/25 04:33
APTT Cancelled 03/22/25 17:33
Vital Signs
Vital Signs
Temp Pulse Resp BP Pulse Ox
97.7 F 72 16 132/73 96
03/25/25 08:00 03/25/25 08:10 03/25/25 08:00 03/25/25 08:10 03/25/25 08:00
CT Intake/Output/Weight
03/24/25 03/25/25 03/25/25
18:59 06:59 18:59
Intake Total 50 / 960 910 / 960
Output Total 700 / 1800 1100 / 1800
Balance -650 / -840 -190 / -840
SaO2: 96
Physical Exam
-
General: AOx3
Cardiovascular: Irregular rate & rhythm and Other (RUE PICC intact w/o erythema)
Respiratory: Clear
Sternum: Stable
Incision: Clean, Dry and Intact
Extremities: Edema +2 (generalized) and Other (DTI R posterior thorax (dressing intact), multiple skin tears on thorax, protective heel foam intact)
Data Reviewed
-
Lab Results: Results Reviewed
Medications: Active Meds Reviewed
Chest X-Ray: Image Reviewed
[2025-03-25 12:04] LABS: Glucose - Point of Care 141 mg/dl (70-99)
--- NOTE | 2025-03-25 12:29 | W.PN.NEPH.PH ---
Today's Communication / Plan
-
Continue IV diuretics with transition to p.o. soon
Assessment/Plan
-
Impression:
Acute type A Aortic dissection with involvement of bilateral coronary ostia and circumferentially around the root with operative repair on 03/08/25
Acute kidney injury
Postoperative cardiogenic shock now on inotropic support
History of CABG x 4 mitral valve repair tricuspid valve repair maze and EVI exclusion on 02/16/2025
Status post Impella placement on 03/08/2025
Lactic acidosis 12.4
Vent dependent respiratory failure
NSVT
Ischemic cardiomyopathy with EF of 45 to 50%
Atrial fibrillation
History of hypertension
Plan:
Follow BMP
TF in progress
Continue current Bumex dose IV
Weight is down nicely and his edema has improved significant
-
-
Date of Service: March 25, 2025
CC / HPI / ROS
-
Chief Complaint:
aortic dissection
IRON
History of Present Illness:
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
BP stable off pressors
IRON/creatinine down to 1.2
Nonoliguric with diuretics, weights down
CRRT off 03/11/2025, CVC removed.
hgb stable 9.5
Review of Systems:
non oliguric
No chest pain
wants to eat (failed VSE)
PEG feeds running
Labs
-
Labs:
WBC 17.8 10^3/uL (4.8-10.8) H 03/24/25 03:26
RBC 3.10 10^6/uL (4.70-6.10) L 03/24/25 03:26
Hgb 9.5 g/dL (13.0-18.0) L 03/24/25 03:26
Hct 32.4 % (39.0-52.0) L 03/24/25 03:26
Plt Count 197 10^3/uL (130-400) 03/24/25 03:26
Sodium 146 mmol/L (135-145) H 03/25/25 05:08
Potassium 3.8 mmol/L (3.5-5.1) 03/25/25 05:08
Chloride 113 mmol/L (98-107) H 03/25/25 05:08
Carbon Dioxide 33 mmol/L (22-30) H 03/25/25 05:08
BUN 56 mg/dl (9-20) H 03/25/25 05:08
Creatinine 1.1 mg/dL (0.7-1.3) 03/25/25 05:08
eGFR > 60.00 03/25/25 05:08
Glucose 123 mg/dl (70-99) H 03/25/25 05:08
Calcium 8.4 mg/dl (8.4-10.2) 03/25/25 05:08
Phosphorus 3.1 mg/dl (2.5-4.5) 03/25/25 05:08
Fkc-C-Qpnkgcysarj Pept 2970 pg/ml 03/04/25 15:44
Albumin 2.5 g/dl (3.5-5.0) L 03/18/25 04:02
Physical Exam
-
Vital Signs:
Vital Signs
Temp Pulse Resp BP Pulse Ox
97.7 F 73 16 126/73 96
03/25/25 08:00 03/25/25 12:00 03/25/25 08:00 03/25/25 12:00 03/25/25 11:26
Cardiovascular:: Regular rate and rhythm
Respiratory:: Bilateral: Coarse
Lung Excursion:: Normal
Abdomen:: Nontender and Soft
Bowel Sounds:: Normal
Extremity Edema:: +1: Bilateral:
--- NOTE | 2025-03-25 12:41 | CM ---
Reviewed chart. Received telephone call from [employer] who approved at [facility]. Approval from 03/25/25 to 04/01/25 with update review due on 03/31/25. Met with Mr. and Mrs. Law to review above. He will need
ambulance transportation. Will need to call on Friday to [facility] to check on bed availability. Medical team update. Medical work-up in progress. The discharge plan is to go to [facility] when bed available.
--- NOTE | 2025-03-25 15:00 | PTCARENOTE ---
goal rate for TFs reached. tolerating. rremains with liquid stool to rectal drainage bag. replaced tube. calazime applied to bottom and in groin area.
[2025-03-25] MEDS: LIPITOR 40 MG TUBE (17:09)
[2025-03-25 18:42] LABS: Glucose - Point of Care 110 mg/dl (70-99)
[2025-03-25] MEDS: SENOKOT 8.6 MG TUBE (20:24)
--- NOTE | 2025-03-25 21:00 | PTCARENOTE ---
Received patient at 1900, resting comfortably in bed. Oriented to self and place, disoriented to time and forgetful at times. Assessment and vital sign trends documented in flowsheets. Rectal tube in place draining liquid stool. Urinary incontinence
device in place- clear yellow output. NPO except Ice chips, tolerating ice chips. Tube feeds via peg tube at goal. Small amount of blood noted on peg tube dressing, dressing changed. Surgical dressings C/D/I. Sternal and aspiration precautions in
place. Continuing with plan of care.
[2025-03-25 23:40] LABS: Glucose - Point of Care 134 mg/dl (70-99)
[2025-03-26] VITALS (14 sets, daily range): BP systolic 101–156; BP diastolic 68–92; PULSE 72; BMI 26.4
--- NOTE | 2025-03-26 01:33 | PTCARENOTE ---
Small amount of bleeding noted at Peg tube site. Site cleaned, dressing changed however site continues to ooze blood. CVICU PA to bedside to evaluate site. Pressure dressing applied. No further orders. Care ongoing.
[2025-03-26 06:08] LABS: Hematocrit 31.9 % (39.0-52.0); Hemoglobin 9.6 g/dL (13.0-18.0); Mean Corp Hgb Conc. 30.1 g/dL (33.0-37.0); Mean Corpuscular Volume 104.9 fL (80.0-94.0); Platelet Count 203 10^3/uL (130-400); Red Cell Dist. Width 22.2 % (11.5-14.5)
[2025-03-26] MEDS: PACERONE 200 MG TUBE (06:14)
[2025-03-26] MEDS: SYNTHROID 150 MCG TUBE (06:21)
[2025-03-26 06:29] LABS: Glucose - Point of Care 109 mg/dl (70-99)
[2025-03-26] MEDS: NOVOLOG FLEXPEN-LOW RESISTANCE SC ×3 (06:29→17:30)
[2025-03-26 06:30] LABS: Blood Urea Nitrogen 54 mg/dl (9-20); Calcium 8.2 mg/dl (8.4-10.2); Carbon Dioxide 34 mmol/L (22-30); Chloride 114 mmol/L (98-107); Estimated Creatinine Clearance 76 ml/min; Glucose 96 mg/dl (70-99); Magnesium 2.1 mg/dl (1.6-2.3); Potassium 3.7 mmol/L (3.5-5.1); Sodium 147 mmol/L (135-145); eGFR > 60.00
[2025-03-26] MEDS: ROBITUSSIN 200 MG TUBE ×4 (08:52→22:00)
[2025-03-26] MEDS: KLOR-CON 40 MEQ PO ×2 (08:52→22:00)
[2025-03-26] MEDS: LOPRESSOR 37.5 MG TUBE ×2 (08:52→22:00)
[2025-03-26] MEDS: KCL ELIXIR 40 MEQ TUBE (08:52)
[2025-03-26] MEDS: SENOKOT TUBE ×2 (08:53→22:00)
[2025-03-26] MEDS: ELIQUIS 5 MG PO ×2 (08:54→22:00)
[2025-03-26] MEDS: LOW STRENGTH ASPIRIN 81 MG TUBE (08:55)
[2025-03-26] MEDS: NSS (PRESERVATIVE FREE) 10 ML IV (08:55)
[2025-03-26] MEDS: PROTONIX IV 40 MG IV (08:56)
[2025-03-26] MEDS: BUMEX 1 MG IV ×3 (09:21→22:00)
--- NOTE | 2025-03-26 10:36 | PTCARENOTE ---
Pt AAOx2 confused at times very pleasant, PT is able to eat ice chips without coughing, PT has no complaints of pain
--- NOTE | 2025-03-26 12:00 | PTCARENOTE ---
WNL assessment that same at this morning
[2025-03-26 13:02] LABS: Glucose - Point of Care 81 mg/dl (70-99)
--- NOTE | 2025-03-26 14:06 | W.PN.NEPH.PH ---
Today's Communication / Plan
-
Overall from a renal standpoint patient is stable I will sign off
Assessment/Plan
-
Impression:
Acute type A Aortic dissection with involvement of bilateral coronary ostia and circumferentially around the root with operative repair on 03/08/25
Acute kidney injury
Postoperative cardiogenic shock now on inotropic support
History of CABG x 4 mitral valve repair tricuspid valve repair maze and EVI exclusion on 02/16/2025
Status post Impella placement on 03/08/2025
Lactic acidosis 12.4
Vent dependent respiratory failure
NSVT
Ischemic cardiomyopathy with EF of 45 to 50%
Atrial fibrillation
History of hypertension
Plan:
Follow BMP
TF in progress
Continue current Bumex dose IV /defer to cardiology
Sodium slightly elevated continue free water flushes and increase as needed
Overall from a renal standpoint patient is stable I will sign off
-
-
Date of Service: March 26, 2025
CC / HPI / ROS
-
Chief Complaint:
aortic dissection
IRON
History of Present Illness:
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
BP stable off pressors
IRON/creatinine down to 1.2
Nonoliguric with diuretics, weights down
CRRT off 03/11/2025, CVC removed.
hgb stable 9.5
Review of Systems:
non oliguric
No chest pain
wants to eat (failed VSE)
PEG feeds running
Labs
-
Labs:
WBC 13.6 10^3/uL (4.8-10.8) H 03/26/25 05:22
RBC 3.04 10^6/uL (4.70-6.10) L 03/26/25 05:22
Hgb 9.6 g/dL (13.0-18.0) L 03/26/25 05:22
Hct 31.9 % (39.0-52.0) L 03/26/25 05:22
Plt Count 203 10^3/uL (130-400) 03/26/25 05:22
Sodium 147 mmol/L (135-145) H 03/26/25 05:22
Potassium 3.7 mmol/L (3.5-5.1) 03/26/25 05:22
Chloride 114 mmol/L (98-107) H 03/26/25 05:22
Carbon Dioxide 34 mmol/L (22-30) H 03/26/25 05:22
BUN 54 mg/dl (9-20) H 03/26/25 05:22
Creatinine 0.9 mg/dL (0.7-1.3) 03/26/25 05:22
eGFR > 60.00 03/26/25 05:22
Glucose 96 mg/dl (70-99) 03/26/25 05:22
Calcium 8.2 mg/dl (8.4-10.2) L 03/26/25 05:22
Phosphorus 2.8 mg/dl (2.5-4.5) 03/26/25 05:22
Qfs-M-Udgrzewawvu Pept 2970 pg/ml 03/04/25 15:44
Albumin 2.5 g/dl (3.5-5.0) L 03/18/25 04:02
Physical Exam
-
Vital Signs:
Vital Signs
Temp Pulse Resp BP Pulse Ox
98 F 71 18 121/74 97
03/26/25 12:00 03/26/25 12:00 03/26/25 12:00 03/26/25 12:00 03/26/25 12:00
Cardiovascular:: Regular rate and rhythm
Respiratory:: Bilateral: Coarse
Lung Excursion:: Normal
Abdomen:: Nontender and Soft
Bowel Sounds:: Normal
Extremity Edema:: +1: Bilateral:
--- NOTE | 2025-03-26 14:47 | W.PN.CT ---
Today's Communication / Plan
-
pod#19:
- increase free water flush to 50cc/h for Na+ 147
- Creatinine at baseline>nephrology signed off
- PEG site cleaned with CHG and redressed (no active bleeding/no erythema)
- Eliquis for chronic AF
- awaiting bed at [facility] (likely 03/28)
Assessment / Plan
-
Assessment:
-S/p Emergent Redo sternotomy with extensive adhesiolysis (Modifier 22 for additional dissection time of 1 hour)/Hemiarch ascending aortic replacement/ Aortic root replacement using a 27 mm valved conduit/Ligation of left and right coronary ostia as
they were dissected coronary bypass grafting to an acute marginal/Relocation of previous vein grafts onto this acute marginal vein graft/Temporary chest packing, open chest, by Dr. Sullivan, 03/07/25, pod#19
-S/p placement of a 5.5 direct aortic Impella LVAD on 03/08/[address] Sullivan
-Cardiac tamponade/ Cardiovascular collapse- s/p Emergency bedside reopening of chest and the evacuation of clot; ligation of IAN, which was the bleeding source; repacking with 1 vaginal pack and Kerlix; replacement of new chest tubes by Dr. Sullivan
on 03/08/25
S/p�mediastinal�reexploration/irrigation and placement of�6mm�ringed PTFE graft around the greater�saphaenous�graft. ���S/P�Emergent�Ligation of IAN, Coronary artery bypass grafting x 1 (Aortic Graft to RSVG to RSVG - T-graft)�03/09
-S/P Washout with antibiotic solution inspection of all surgical sites and closure with wires and plates, by Dr. Sullivan, 03/11/25
-S/P Endotracheal bronchoscopy with lavage, by Dr. Carpenter, 03/07/25
-S/p Impella wean/removal at bedside by Dr. Sullivan 03/12/25
-S/P Bronchoscopy at bedside by Dr. Sullivan 03/12/25
-s/p left thoracentesis 03/22
- s/p PEG 03/22
- s/p right thoracentesis 03/23
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
-Worsening of aortic valve insufficiency to severe secondary to dissection
-Acute on chronic congestive heart failure with volume overload secondary to new aortic valve insufficiency, requiring mechanical cardiac support with Impella 5.5
-Hypertension
-Hyperlipidemia
-Hypothyroidism
-AFIB on Eliquis
-Ischemic CM
-Recent cardiac surgery over 20 days ago
-Mitral valve insufficiency status post repair
-Tricuspid insufficiency status post repair
-Coronary artery disease status post CABG
-S/P CABG x 4, MV repair, TV repair, MAZE, and EVI exclusion, Dr. Sullivan 02/16/25, Readmitted for SOB on 03/04
-Acute intraop/postop blood loss/Anemia (transfused 14u PRBC's)
-Acute intraop and postop coagulopathy (Administered 10mg Factor VII, 4 of cryo and 11 FFP ); chest packed and kept opened until 03/11/25
-Acute postop thrombocytopenia (transfused 11 {5pks} plts)
-Acute postop Pulmonary insufficiency
-Acute postop VDRF
-Acute postop Metabolic Acidosis, followed by metabolic alkalosis
-Acute postop Lactic acidosis
-IRON
-Cardiac tamponade 03/08/25
-Acute postop cardiogenic shock with MCS
-Acute postop edema
-Acute postop a-fib
-Acute postop hypernatremia
-acute post-op pleural effusions
- acute postop dysphagia (d/t VDRF)
- acute postop pressure injury R scapulae/multiple skin tears
Discussed patient care with: Cardiology and Nursing
Subjective
Procedure
Past 24 hrs: Tolerating tube feeds at goal rate. Mild confusion last night, pulling at PEG.
-
Date of Service: March 26, 2025
Objective Data
-
Lab Results
03/26/25 05:22
03/26/25 05:22
PT 18.5 Sec (11.4-14.6) H 03/14/25 04:33
INR 1.52 03/14/25 04:33
APTT Cancelled 03/22/25 17:33
Vital Signs
Vital Signs
Temp Pulse Resp BP Pulse Ox
98 F 71 18 121/74 97
03/26/25 12:00 03/26/25 12:00 03/26/25 12:00 03/26/25 12:00 03/26/25 12:00
CT Intake/Output/Weight
03/25/25 03/26/25 03/26/25
18:59 06:59 18:59
Intake Total 761 / 2091 1330 / 2091 320 / 320
Output Total 800 / 2175 1375 / 2175 500 / 500
Balance -39 / -84 -45 / -84 -180 / -180
SaO2: 97
Physical Exam
-
General: Awake and Oriented (x2)
Cardiovascular: Irregular rate & rhythm
Respiratory: Clear
Sternum: Stable
Incision: Dressing Intact
Extremities: Edema +2 (generalized) and Other (Old congealed blood around PEG insertion site, no erythema. RUE PICC, Male Purewick intact; RLE SVG incisions intact)
Data Reviewed
-
Lab Results: Results Reviewed
Medications: Active Meds Reviewed
Chest X-Ray: Image Reviewed
[2025-03-26 17:05] LABS: Glucose - Point of Care 80 mg/dl (70-99)
[2025-03-26] MEDS: LIPITOR 40 MG TUBE (17:05)
--- NOTE | 2025-03-26 20:00 | PTCARENOTE ---
assumed care of pt from previous RN. pt awake, alert, and oriented to self and date/year. pt not oriented to place, situation, or time of day. A fib on tele-monitor. POX 94% on RA. abd s/n, PEG tube w/ sanguineous oozing from site. tube feeding as
ordered. pt NPO except ice chips. male purewick in place. RUE PICC intact. see worklist for complete nursing assessment, interventions, VS, and I&Os.
[2025-03-27] VITALS (8 sets, daily range): BP systolic 103–130; BP diastolic 63–78; BMI 26.1
--- NOTE | 2025-03-27 | PTCARENOTE ---
assessment remains unchanged. VSS.
[2025-03-27 00:17] LABS: Glucose - Point of Care 137 mg/dl (70-99)
--- NOTE | 2025-03-27 00:27 | W.PN.CT ---
Addendum entered and electronically signed by Oscar Jacobs MD 03/27/25 09:19:
I saw and examined the patient.
The PA's note was reviewed and I agree with the note.
Comment:
Minor bleeding around PEG site. No other overnight events.
- Na up to 149, will increase free water to 100/hr today
- Reduced bumex to BID
- S&S to re-eval
- LTAC planning for tomorrow
Original Note:
Today's Communication / Plan
-
Plan:
-No major issues overnight. Hemodynamically and Neurologically intact
-Alert and oriented x 2, not fully oriented to Place, I'm at [facility] in [place]
-Has PEG palced on 03/22 and currently on goal tube feeds (Osmolite) @ 65 mL/hr
-Cont. Diuresis with IV Bumex, edema improving. Replete electrolytes
-F/U AM labs, pending
-Cont. Eliquis for postop A-fib
-PT/OT following
-Appreciate consultants' input, ID/Housekeeping Lead/Pulm/Nephrology/GI have signed off
-For possible placement @ [facility] on Wednesday 03/28 if bed available
Assessment / Plan
-
Assessment:
-S/p Emergent Redo sternotomy with extensive adhesiolysis (Modifier 22 for additional dissection time of 1 hour)/Hemiarch ascending aortic replacement/ Aortic root replacement using a 27 mm valved conduit/Ligation of left and right coronary ostia as
they were dissected coronary bypass grafting to an acute marginal/Relocation of previous vein grafts onto this acute marginal vein graft/Temporary chest packing, open chest, by Dr. Sullivan, 03/07/25, pod#20
-S/p placement of a 5.5 direct aortic Impella LVAD on 03/08/[address] Sullivan
-Cardiac tamponade/ Cardiovascular collapse- s/p Emergency bedside reopening of chest and the evacuation of clot; ligation of IAN, which was the bleeding source; repacking with 1 vaginal pack and Kerlix; replacement of new chest tubes by Dr. Sullivan
on 03/08/25
S/p�mediastinal�reexploration/irrigation and placement of�6mm�ringed PTFE graft around the greater�saphaenous�graft. ���S/P�Emergent�Ligation of IAN, Coronary artery bypass grafting x 1 (Aortic Graft to RSVG to RSVG - T-graft)�03/09
-S/P Washout with antibiotic solution inspection of all surgical sites and closure with wires and plates, by Dr. Sullivan, 03/11/25
-S/P Endotracheal bronchoscopy with lavage, by Dr. Carpenter, 03/07/25
-S/p Impella wean/removal at bedside by Dr. Sullivan 03/12/25
-S/P Bronchoscopy at bedside by Dr. Sullivan 03/12/25
-s/p left thoracentesis 03/22
- s/p PEG 03/22
- s/p right thoracentesis 03/23
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
-Worsening of aortic valve insufficiency to severe secondary to dissection
-Acute on chronic congestive heart failure with volume overload secondary to new aortic valve insufficiency, requiring mechanical cardiac support with Impella 5.5
-Hypertension
-Hyperlipidemia
-Hypothyroidism
-AFIB on Eliquis
-Ischemic CM
-Recent cardiac surgery over 20 days ago
-Mitral valve insufficiency status post repair
-Tricuspid insufficiency status post repair
-Coronary artery disease status post CABG
-S/P CABG x 4, MV repair, TV repair, MAZE, and EVI exclusion, Dr. Sullivan 02/16/25, Readmitted for SOB on 03/04
-Acute intraop/postop blood loss/Anemia (transfused 14u PRBC's)
-Acute intraop and postop coagulopathy (Administered 10mg Factor VII, 4 of cryo and 11 FFP ); chest packed and kept opened until 03/11/25
-Acute postop thrombocytopenia (transfused 11 {5pks} plts)
-Acute postop Pulmonary insufficiency
-Acute postop VDRF
-Acute postop Metabolic Acidosis, followed by metabolic alkalosis
-Acute postop Lactic acidosis
-IRON
-Cardiac tamponade 03/08/25
-Acute postop cardiogenic shock with MCS
-Acute postop edema
-Acute postop a-fib
-Acute postop hypernatremia
-acute post-op B/L pleural effusions
- acute postop dysphagia (d/t VDRF)
- acute postop pressure injury R scapulae/multiple skin tears
Discussed patient care with: Cardiology, Nursing, Respiratory Therapy, Pharmacy and Care Team
Subjective
Procedure
Past 24 hrs: Tolerating tube feeds at goal rate. Mild confusion last night, pulling at PEG.
-
Date of Service: March 27, 2025
Pt c/o mild incisional pain, otherwise feels well
Objective Data
-
PT 18.5 Sec (11.4-14.6) H 03/14/25 04:33
INR 1.52 03/14/25 04:33
APTT Cancelled 03/22/25 17:33
Vital Signs
Vital Signs
Temp Pulse Resp BP Pulse Ox
97.9 F 65 14 123/79 98
03/26/25 20:00 03/27/25 00:00 03/26/25 20:00 03/26/25 22:00 03/26/25 21:00
CT Intake/Output/Weight
03/26/25 03/26/25 03/27/25
06:59 18:59 06:59
Intake Total 1330 / 2091 320 / 550 230 / 550
Output Total 1375 / 2175 1325 / 1625 300 / 1625
Balance -45 / -84 -1005 / -1075 -70 / -1075
SaO2: 98 (RA)
Physical Exam
-
General: Awake, Oriented and AOx3
Cardiovascular: Regular rate & rhythm, No Murmurs, No Rub and No Gallop
Respiratory: Decreased Breath Sounds (at bases, otherwise clear)
Sternum: Stable
Incision: Clean, Dry, Intact and Dressing Intact
Extremities: Edema +2
Data Reviewed
-
Lab Results: Results Reviewed
Medications: Active Meds Reviewed
Chest X-Ray: Report Reviewed and Image Reviewed
ECG: Report Reviewed and Image Reviewed
[2025-03-27] MEDS: NOVOLOG FLEXPEN-LOW RESISTANCE SC ×3 (00:57→12:13)
--- NOTE | 2025-03-27 04:30 | PTCARENOTE ---
no acute changes. VSS.
[2025-03-27 05:49] LABS: Hematocrit 30.4 % (39.0-52.0); Hemoglobin 9.2 g/dL (13.0-18.0); Mean Corp Hgb Conc. 30.3 g/dL (33.0-37.0); Mean Corpuscular Volume 105.6 fL (80.0-94.0); Platelet Count 189 10^3/uL (130-400); Red Cell Dist. Width 22.2 % (11.5-14.5)
[2025-03-27 05:56] LABS: Blood Urea Nitrogen 45 mg/dl (9-20); Calcium 8.0 mg/dl (8.4-10.2); Carbon Dioxide 36 mmol/L (22-30); Chloride 112 mmol/L (98-107); Estimated Creatinine Clearance 85 ml/min; Glucose 121 mg/dl (70-99); Magnesium 2.0 mg/dl (1.6-2.3); Potassium 3.9 mmol/L (3.5-5.1); Sodium 149 mmol/L (135-145); eGFR > 60.00
[2025-03-27] MEDS: PACERONE 200 MG TUBE (06:09)
[2025-03-27] MEDS: SYNTHROID 150 MCG TUBE (06:09)
[2025-03-27 06:14] LABS: Glucose - Point of Care 123 mg/dl (70-99)
[2025-03-27] MEDS: ROBITUSSIN 200 MG TUBE ×2 (08:44→12:10)
[2025-03-27] MEDS: NSS (PRESERVATIVE FREE) 10 ML IV (08:44)
[2025-03-27] MEDS: BUMEX 1 MG IV ×2 (08:44→20:16)
[2025-03-27] MEDS: LOW STRENGTH ASPIRIN 81 MG TUBE (08:44)
[2025-03-27] MEDS: PROTONIX IV 40 MG IV (08:44)
[2025-03-27] MEDS: ELIQUIS 5 MG PO (08:45)
[2025-03-27] MEDS: LOPRESSOR 37.5 MG TUBE ×2 (08:45→20:15)
[2025-03-27] MEDS: SENOKOT TUBE ×2 (08:46→20:16)
[2025-03-27] MEDS: KCL ELIXIR 40 MEQ TUBE ×2 (08:46→20:15)
--- NOTE | 2025-03-27 09:00 | PTCARENOTE ---
Received patient for 7a-7p shift. Pt OOB, in chair. VSS, afib on peeled potato inspector. Tube feeds running via PEG tube at 65ml/hr, flush 50 ml/hr. Patient AAOx1, disoriented to place and time. Responds appropriately to commands. Medications administered
as ordered. Male purewick catheter to wall suction, urine clear geovanna. Maintained on NPO with ice chips. Fall precautions maintained, Patient demonstrates use of call bustillos system.
[2025-03-27 12:13] LABS: Glucose - Point of Care 111 mg/dl (70-99)
--- NOTE | 2025-03-27 12:38 | PTCARENOTE ---
Patient reassessed, assessment unchanged from previous. Patient transferred to bed via Cierra lift. VSS, NSR on managed care coordinator. Family at bedside, resting comfortably. Tube feeds infusing as ordered, bed maintained at 30 degrees or higher for feeds.
Medications administered as ordered. Patient denies pain at this time.
--- NOTE | 2025-03-27 17:10 | PTCARENOTE ---
Patient reassessed, assessment unchanged from previous. Patient OOB to chair via Cierra lift. VSS, afib on community dietitian. Tube feedings infusing via PEG tube without issues. Pt tolerating ice chips via spoon. Denies pain at this time. Medications
administered as ordered.
[2025-03-27] MEDS: LIPITOR 40 MG TUBE (17:33)
[2025-03-27] MEDS: ELIQUIS 5 MG TUBE (20:15)
[2025-03-27 21:09] LABS: Blood Urea Nitrogen 42 mg/dl (9-20); Calcium 7.9 mg/dl (8.4-10.2); Carbon Dioxide 36 mmol/L (22-30); Chloride 108 mmol/L (98-107); Estimated Creatinine Clearance 85 ml/min; Glucose 126 mg/dl (70-99); Magnesium 1.9 mg/dl (1.6-2.3); Potassium 4.1 mmol/L (3.5-5.1); Sodium 143 mmol/L (135-145); eGFR > 60.00
[2025-03-28] VITALS (8 sets, daily range): BP systolic 115–125; BP diastolic 68–81; PULSE 72; BMI 26.1
--- NOTE | 2025-03-28 | PTCARENOTE ---
Patient reassessed. VSS no c/o pain. Remains in Aflutter. TF bag changed. Labs obtained showing normal Na levels. Per CT PA maintain 100mL flushes.
--- NOTE | 2025-03-28 00:27 | W.PN.CT ---
Today's Communication / Plan
-
Plan:
-No major issues overnight. Hemodynamically and Neurologically intact
-Alert and oriented x 2, not fully oriented to place, 'I'm at the [facility]'
-Has PEG palced on 03/22 and currently on goal tube feeds (Osmolite) @ 65 mL/hr
-Cont. Diuresis with IV Bumex, edema improving. Replete electrolytes
-Postop hypernatremia has resolved, on free water flush @ 100 mL/hr
-Cont. Eliquis for postop A-fib
-PT/OT following
-Appreciate consultants' input, ID/Tire Man/Pulm/Nephrology/GI have signed off
-For [facility] if bed available
Assessment / Plan
-
Assessment:
-S/p Emergent Redo sternotomy with extensive adhesiolysis (Modifier 22 for additional dissection time of 1 hour)/Hemiarch ascending aortic replacement/ Aortic root replacement using a 27 mm valved conduit/Ligation of left and right coronary ostia as
they were dissected coronary bypass grafting to an acute marginal/Relocation of previous vein grafts onto this acute marginal vein graft/Temporary chest packing, open chest, by Dr. Sullivan, 03/07/25, pod#21
-S/p placement of a 5.5 direct aortic Impella LVAD on 03/08/[address] Sullivan
-Cardiac tamponade/ Cardiovascular collapse- s/p Emergency bedside reopening of chest and the evacuation of clot; ligation of IAN, which was the bleeding source; repacking with 1 vaginal pack and Kerlix; replacement of new chest tubes by Dr. Sullivan
on 03/08/25
S/p�mediastinal�reexploration/irrigation and placement of�6mm�ringed PTFE graft around the greater�saphaenous�graft. ���S/P�Emergent�Ligation of IAN, Coronary artery bypass grafting x 1 (Aortic Graft to RSVG to RSVG - T-graft)�03/09
-S/P Washout with antibiotic solution inspection of all surgical sites and closure with wires and plates, by Dr. Sullivan, 03/11/25
-S/P Endotracheal bronchoscopy with lavage, by Dr. Carpenter, 03/07/25
-S/p Impella wean/removal at bedside by Dr. Sullivan 03/12/25
-S/P Bronchoscopy at bedside by Dr. Sullivan 03/12/25
-s/p left thoracentesis 03/22
- s/p PEG 03/22
- s/p right thoracentesis 03/23
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
-Worsening of aortic valve insufficiency to severe secondary to dissection
-Acute on chronic congestive heart failure with volume overload secondary to new aortic valve insufficiency, requiring mechanical cardiac support with Impella 5.5
-Hypertension
-Hyperlipidemia
-Hypothyroidism
-AFIB on Eliquis
-Ischemic CM
-Recent cardiac surgery over 20 days ago
-Mitral valve insufficiency status post repair
-Tricuspid insufficiency status post repair
-Coronary artery disease status post CABG
-S/P CABG x 4, MV repair, TV repair, MAZE, and EVI exclusion, Dr. Sullivan 02/16/25, Readmitted for SOB on 03/04
-Acute intraop/postop blood loss/Anemia (transfused 14u PRBC's)
-Acute intraop and postop coagulopathy (Administered 10mg Factor VII, 4 of cryo and 11 FFP ); chest packed and kept opened until 03/11/25
-Acute postop thrombocytopenia (transfused 11 {5pks} plts)
-Acute postop Pulmonary insufficiency
-Acute postop VDRF
-Acute postop Metabolic Acidosis, followed by metabolic alkalosis
-Acute postop Lactic acidosis
-IRON
-Cardiac tamponade 03/08/25
-Acute postop cardiogenic shock with MCS
-Acute postop edema
-Acute postop a-fib
-Acute postop hyponatremia/hypernatremia
-acute post-op B/L pleural effusions
- acute postop dysphagia (d/t VDRF)
- acute postop pressure injury R scapulae/multiple skin tears
Discussed patient care with: Cardiology, Nursing, Respiratory Therapy, Pharmacy and Care Team
Subjective
Procedure
Past 24 hrs: Tolerating tube feeds at goal rate. Mild confusion last night, pulling at PEG.
-
Date of Service: March 28, 2025
Pt c/o mild incisional pain, otherwise feels well
Objective Data
-
Lab Results
03/27/25 04:28
PT 18.5 Sec (11.4-14.6) H 03/14/25 04:33
INR 1.52 03/14/25 04:33
APTT Cancelled 03/22/25 17:33
Vital Signs
Vital Signs
Temp Pulse Resp BP Pulse Ox
97.8 F 69 20 117/69 95
03/27/25 20:00 03/27/25 23:18 03/27/25 20:00 03/27/25 22:50 03/27/25 20:00
CT Intake/Output/Weight
03/27/25 03/27/25 03/28/25
06:59 18:59 06:59
Intake Total 1150 / 1470 1480 / 2635 1155 / 2635
Output Total 1250 / 2575 1100 / 1750 650 / 1750
Balance -100 / -1105 380 / 885 505 / 885
SaO2: 95 (RA)
Physical Exam
-
General: Awake, Oriented and AOx3
Cardiovascular: Regular rate & rhythm, No Murmurs, No Rub and No Gallop
Respiratory: Decreased Breath Sounds (at bases, otherwise clear)
Sternum: Stable
Incision: Clean, Dry, Intact and Dressing Intact
Extremities: Edema +1
Data Reviewed
-
Lab Results: Results Reviewed
Medications: Active Meds Reviewed
Chest X-Ray: Report Reviewed and Image Reviewed
CT Scan: Report Reviewed and Image Reviewed
ECG: Report Reviewed and Image Reviewed
[2025-03-28 01:48] LABS: Glucose - Point of Care 104 mg/dl (70-99)
--- NOTE | 2025-03-28 02:48 | PTCARENOTE ---
Assumed care of patient at 1900. Patient found resting in bed at time of assessment. Patient is AOx2 DO Time, follows commands appropriately, moves all extremities. They can be confused and forgetful at times. Lung sounds are diminished in the
bases, saO2 98% on RA. Heart sounds are audible, patient is aflutter BBB on the monitor. Patient has normal palpable radial and pedal pulses are present via doppler. They have +1 LUE edema, trace generalized anasarca and +1 BLE edema. Patient has
active BS, multiple liquid BMs during the day, there is a PEG tube receiving osmolite 1.2 @65ml/hr, and male PW draining clear yellow urine. Patient has sternal incision approx with surg adhesive BRANCH COORDINATOR, R groin puncture approx with surg adhesive KRYSTYNA
ecchymotic around site, RLE incison approx with surg adhesive BRANCH COORDINATOR and generalized skin tears. Preventive foams present on knees and heels sacrum foam inspected and replaced. Patient has R PICC for intermittent infusion. VSS. Call bustillos within reach.
[2025-03-28 04:18] LABS: Blood Urea Nitrogen 40 mg/dl (9-20); Calcium 7.8 mg/dl (8.4-10.2); Carbon Dioxide 37 mmol/L (22-30); Chloride 107 mmol/L (98-107); Estimated Creatinine Clearance 85 ml/min; Glucose 119 mg/dl (70-99); Magnesium 1.9 mg/dl (1.6-2.3); Potassium 4.1 mmol/L (3.5-5.1); Sodium 144 mmol/L (135-145); eGFR > 60.00
[2025-03-28] MEDS: SYNTHROID 150 MCG TUBE (06:28)
[2025-03-28 06:36] LABS: Glucose - Point of Care 104 mg/dl (70-99)
--- NOTE | 2025-03-28 07:37 | PTCARENOTE ---
Patient reassessed. AM hygiene care provided. PEG tube bleeding CT PA aware. Redressed with 4x4 gauze. OOB to chair via mohinder.
[2025-03-28] MEDS: KCL ELIXIR 40 MEQ TUBE ×2 (07:50→20:44)
[2025-03-28] MEDS: PREVACID 30 MG TUBE (07:51)
[2025-03-28] MEDS: LOW STRENGTH ASPIRIN 81 MG TUBE (07:51)
[2025-03-28] MEDS: PACERONE 200 MG TUBE (07:51)
[2025-03-28] MEDS: LOPRESSOR 37.5 MG TUBE ×2 (07:51→20:44)
[2025-03-28] MEDS: ELIQUIS 5 MG TUBE ×2 (07:53→20:44)
--- NOTE | 2025-03-28 07:53 | W.PN.CD ---
Today's Communication / Plan
-
edema improving. weights down. remains on IV diuretic which is adjusted to daily
continue to monitor weights and renal function.
s patietn dieursed if BP remains stable then woudl add low dose Valsartan. Can start with 20mg
would repeat echo for post op baseline . ( last echo limited )
Impression / Plan
-
Impression/Plan: 74 yo male with PMH of ICM EF 35-40%, chronic HFrEF, persistent A fib on eliquis, HTN, CAD s/p CABG x 4, MV repair, TV repair, MAZE, and EVI exclusion with Dr. Sullivan (02/16/25); admitted on 03/04/2025 with acute on chronic HFrEF,
subsequently found to have severe AR due to Milroy type A aortic dissection.
#Aortic dissection
-Acute, Moses type A w/ involvement of b/l Coronary ostia and circumferentially around the root causing severe AI, distally to the Aorto-iliac bifurcation complicated by shock.
-s/p #27 valved conduit and hemiarch replacement, ligation of L and R coronary ostia as they were dissected; bypass grafting to an acute marginal and relocation of previous vein grafts onto acute marginal vein graft.
-Loss of Impella pulsatility lead to TTE guided repositioning. Patient was re-opened at the bedside, revealing clot around the right ventricle and SVG that appeared to compress both. The clot was evacuated (05/08/2025).
-Arterial bleeding was observed from the IAN bed, which was clipped and a sternal wire site which was double ligated with good hemostasis (03/08/2025).
-CI dwindled overnight, improved to 2.06. WEAVING INSPECTOR = 0.84 Wilkes. Delphine = 0.8.
-The patient has had several episodes of hypotension, though to be due to compression of the SVG. The patient was taken to OR for placement of a ringed graft to prevent compression (03/09/2025).
-Patient returned to the OR for ligation of the IAN (persistent bleeding) and re-bypass to address the angulation of the original SVG to Diag, which is thought to be leading to his multiple hypotensive episodes (03/09/2025).
-s/p chest closure and Impella removal.
-Thoracentesis x2.
-Post operative course complicated by dysphagia, now s/p PEG.
-Encourage incentive spirometry.
#mental status
-Postoperative.
-Anoxic brain injury vs TME. appears mpore awake and interactive than last week.
#CAD
-Chronic, progressive.
-s/p CABG x 4, MV repair, TV repair, MAZE, and EVI exclusion with Dr. Sullivan (02/16/25).
-CABG anatomy has been altered due to compression/ischemia after dissection repair.
-The current anatomy is MAGANA to LAD, SVG from Ao graft to SVG to diagonal, sequential SVG Y-graft from diagonal graft to OM1 to LPL.
-Secondary prevention as tolerated.
#HFrEF/ICMO
-LV ejection fraction 25 to 30% by echo 03/08/2025.
-GDMT when hemodynamics will tolerate:
-Diuretics: Bumetanide 1 mg IV TID.
-Beta frantz: Metoprolol tartrate 37.5 mg BID.
-ACEI/ARB/ARNi: Blood pressure and IRON have improved would consider addition of low-dose of valsartan.
-MRA: On hold due to BP/IRON.
-SGLT2i:O n hold until additional recovery.
-ICD: Not currently indicated.
edema - improving down 10kg from 03/21/25- 03/28/25
#Anemia
-Post operative.
-Continue to monitor.
#PNA
-Acute.
-Respiratory culture positive for Enterobacter amnigenus (Amoxicillin-R, Amoxicillin/Clavulanate-R, Ampicillin/Sulbactam-R, Cefazolin-R, Ceftriaxone-I).
-Resolved.
#Atrial fibrillation
-Persistent.
-Currently in atrial flutter.
-Rate/rhythm control with amiodarone, s/p MAZE with Dr. Sullivan, 02/16/2025.
-CHADS2-Vasc = 5 (CHF, HTN, Age x2, vascular disease).
-Anti-thrombotic therapy with apixaban 2.5 mg BID, S/P LAAE (#40 AtriClip, SN [id number]) with Dr. Sullivan, 02/16/2025.
#IRON
-Improving (high of 2.5), creatinine now 0.8
-Nephrology has consulted this admission.
-Continue diuresis and monitor Na and creatinine
Subjective/Interval History:
Stable.
DATA:
TTE, 03/04/2025:
SUMMARY
1. Moderately reduced LV systolic function. Ejection fraction is 35-40%. Global hypokinesis.
2. S/p mitral valve repair with peak/mean gradients of 15/5 mmHg. Trace mitral valve regurgitation.
3. Moderate/severe aortic regurgitation. PHT approx 250 msec.
4. S/p tricuspid valve repair with mean gradient of 2 mmHg. Mild tricuspid regurgitation. Estimated PASP 38 mmHg, assuming RAP 8 mmHg. Mildly elevated PASP.
5. Compared to 02/19/25: LVEF is stable in 35-40% range, mitral valve and tricuspid valve repairs are stable; aortic regurgitation has progressed from mild/moderate to moderate/severe.
SAJAN, 03/07/2025:
SUMMARY
1. There is a Moses type A DeBakey class I aortic dissection present.
2. Trileaflet aortic valve. Severe aortic regurgitation due to prolapse of the left vs non coronary cusp and aortic dissection.
3. Low normal ventricular systolic function. LVEF 45-50%.
4. S/p tricuspid valve repair. Trace residual tricuspid regurgitation.
5. S/p mitral valve repair. Trace residual mitral regurgitation.
6. Dr. Sullivan (CT surgery) notified of findings at time of study.
CT surgery, 03/07/2025:
Procedure(s) Performed:
1. Ultrasound-guided access using Seldinger technique 2 the right common femoral artery and vein with percutaneous access using a 25 Burundian femoral venous cannula
2. Redo sternotomy with extensive adhesiolysis (Modifier 22 for additional dissection time of 1 hour)
3. Direct aortic cannulation using ultrasound and Seldinger technique with a SAJAN guidance verifying true lumen access
4. Moderate hypothermic circulatory arrest with antegrade cerebral perfusion
5. Hemiarch ascending aortic replacement
6. Aortic root replacement using a 27 mm valved conduit
7. Ligation of left and right coronary ostia as they were dissected coronary bypass grafting to an acute marginal
8. Relocation of previous vein grafts onto this acute marginal vein graft
9. Placement of temporary atrial ventricular pacing wires
10. Transesophageal echocardiography
11. Temporary chest packing, open chest.
Impella Placement, 03/08/2025:
Procedure(s) Performed:
1. The temporary dressing over top of the open chest was removed
2. Placement of atrial pacing wires
3. Anastomosis of a 10 mm straight tube graft off of the ascending aortic graft, graft to graft anastomosis
4. Graft tunneled to the left supra clavicular region between the strap muscles
5. Placement of a 5.5 direct aortic Impella LVAD
6. Chest closure in usual fashion
TTE, 03/08/2025:
SUMMARY
1. TDS.
2. In limited views, left ventricle appears normal sized with severely reduced systolic function. Left ventricle ejection fraction is 25-30% by visual estimation. Global hypokinesis. S/p Impella 5.5 insertion which appears to be appropriately
placed.
3. In limited views right ventricle appears normal sized with mildly reduced systolic function. Right ventricle does appear to expand in diastole.
4. Limited valvular interrogation.
5. Compared to SAJAN earlier in day, overall, no significant change.
Bedside Rexploration, 03/08/2025:
Procedure: Emergency bedside reopening of chest and the loculation of clot ligation of IAN which was the bleeding source, repacking with 1 vaginal pack and Kerlix and replacement of new chest tubes
CT surgery re-exploration, 03/09/2025 (morning):
PROCEDURES:
1. Mediastinal reexploration/irrigation and removal of packing.
2. Repositioning of proximal course of greater saphenous vein graft
with several 6-0 Prolene sutures (placed/subsequently removed).
3. Placement of 6 mm ringed PTFE graft around proximal segment of
greater saphenous vein graft .
4. Replacement of new mediastinal packing (1 vaginal pack and
partial roll of Kerlix; syringe based sternal separation).
5. Reexploration with replacement of new open chest dressing.
CT surgery re-exploration, 03/09/2025 (afternoon):
Procedure(s) Performed:
1. Reopening of temporary chest coverage.
2. Ligation of IAN.
3. Coronary artery bypass grafting x 1 (Aortic Graft to RSVG to RSVG - T-graft).
4. Open vein harvest of the left thigh.
5. Transesophageal echocardiography.
6. Repacking of chest and placement of temporary dressing.
Physical Exam
Vital Signs/Labs
Vital Signs
Temp Pulse Resp BP Pulse Ox
97.6 F 65 20 117/69 95
03/28/25 00:00 03/28/25 05:00 03/28/25 00:00 03/27/25 22:50 03/28/25 00:29
03/27/25 03/28/25 03/29/25
06:59 06:59 06:59
Actual Weight 84.9 kg
03/27/25 04:28
03/28/25 03:27
PT 18.5 Sec (11.4-14.6) H 03/14/25 04:33
INR 1.52 03/14/25 04:33
APTT Cancelled 03/22/25 17:33
Magnesium 1.9 mg/dl (1.6-2.3) 03/28/25 03:27
Triglycerides 111 mg/dl (10-149) 03/13/25 04:21
03/04/25
15:44
Ejd-G-Iygvurfpcvb Pept 2970
Physical Exam
Constitutional: No acute distress, Comfortable and Other (inc chair)
Cardiovascular: Rhythm & rate is regular
Respiratory: Wheeze Absent and Rhonchi Absent
GI: Soft
Neuro/Psych: Alert and Oriented
Other: Other (bilat leg edema)
Data Reviewed
-
Date of Service: March 28, 2025
Medical Decision Making: Reviewed Test Results and Review of Case with other Provider (TEETEE CELIS)
Medical Tests (PFT, Pathology etc): Report Reviewed by me
Labs: Labs Reviewed by me
[2025-03-28] MEDS: SENOKOT TUBE ×2 (07:54→20:45)
[2025-03-28] MEDS: BUMEX 1 MG IV (07:54)
[2025-03-28] MEDS: BUMEX IV (08:28)
--- NOTE | 2025-03-28 11:01 | PTCARENOTE ---
Pt received from shiftman RN. Pt is Ox2 and forgetful, unsure of date but was aware of the month. MCKEE with gen weakness. Aflutter on tele, +1 LE edema, +1 LUE edema. 98% on RA, breath sounds are clear. Male PW in place draining clear yellow
urine. Tube feeding currently at goal- osmo 1.2 at 65/hr, flush decreased to 50/hr. PEG site bleeding, dressing changed overnight, currently has moderate bloody drainage from site. Currently up in the chair via mohinder lift. Surgical sites intact.
Repeat Echo ordered. Pt currently in video swallow.
--- NOTE | 2025-03-28 11:30 | PTOTSP ---
Speech Language Pathology
VIDEOFLUOROSCOPIC SWALLOWING EXAMINATION (VSE) completed. Mild-mod oral dysphagia noted, at least partially affected by cognitive status. Mild pharyngeal dysphagia also noted. Trace to mild pharyngeal residue noted. Supraglottic penetration and
1 instance of silent aspiration noted with thin liquids. Penetration/aspiration cleared with a cued throat clear/cough. Improvement noted in swallow function since FEES.
Recommend:
(1) Initiate IDDSI Level 6 (soft/bite-sized) solids and mildly thick liquids
(2) Aspiration precautions: sit upright, slow rate, full supervision
(3) Meds whole in puree or via PEG
(4) Allow single cup sips of thin water between meals post oral care with supervision per Aspiration Risk Hydration Protocol (ARHP)
(5) PHOTOCOPYING MACHINE OPERATOR to continue to follow
--- NOTE | 2025-03-28 14:55 | CM ---
Reviewed chart. Telephone call to [facility]iaison to check on bed available. Currently no bed today, possible bed tomorrow if the discharge happens. Will touch base with her tomorrow. Sent updated clinical information to [facility]. Rehab.
Met with and his son to update them. Medical work-up in progress. The discharge plan is to go to [facility].
[2025-03-28] MEDS: LIPITOR 40 MG TUBE (17:04)
[2025-03-28 17:08] LABS: Glucose - Point of Care 118 mg/dl (70-99)
--- NOTE | 2025-03-28 17:55 | W.PN.SURGUPD ---
Surgical Update
Surgical Update
Called to evaluate bleeding around the PEG site. Of note the PEG was placed on 03/22/2025 and noted to be 2 cm at the skin. On exam today there was a bloody drain sponges around the bumper. No bleeding at the skin was noted. And no active
bleeding was noted at the time of my exam. The bumper was noted to be at 3 cm, likely this became loose over the past few days which may be contributing to the bleeding. The bumper was tightened to 2 cm and a fresh drain sponge was placed.
Nursing was instructed to recontact general surgery if there was any additional bleeding.
An abdominal binder would also be reasonable to help protect the tube from getting pulled during the day.
All questions answered, patient and family agreeable to plan of care above.
Please call general surgery with any questions or concerns.
[2025-03-29] VITALS (12 sets, daily range): BP systolic 94–134; BP diastolic 58–89; PULSE 74; BMI 26.2
--- NOTE | 2025-03-29 00:01 | PTCARENOTE ---
Received patient at 1900 resting comfortably in bed. AAOx2, unsure of date but aware of the month. MCKEE with generalized weakness. Denies pain. A-flutter on library monitor, +1 b/l LE and L UE edema. Lungs diminished in bases, on RA. Incontinent of
urine- male purewick in place draining clear yellow urine. Peg tube in abdomen, tube feeding infusing at goal rate. Surgical sites intact.
--- NOTE | 2025-03-29 03:52 | W.PN.CT ---
Today's Communication / Plan
-
Plan:
-No major issues overnight. Hemodynamically and Neurologically intact
-Alert and oriented x 2, not fully oriented to place, 'I'm at the [facility]'
-Has PEG palced on 03/22 and currently on goal tube feeds (Osmolite) @ 65 mL/hr
-Passed swallowing evaluation yesterday 03/28/25
-Cont. Diuresis with IV Bumex, edema improving. Replete electrolytes
-Postop hypernatremia has resolved, on free water flush @ 50 mL/hr
-Cont. Eliquis for postop A-fib
-PT/OT following
-Appreciate consultants' input, ID/Print Inspector/Pulm/Nephrology/GI have signed off
-For [facility] today if bed available
Assessment / Plan
-
Assessment:
-S/p Emergent Redo sternotomy with extensive adhesiolysis (Modifier 22 for additional dissection time of 1 hour)/Hemiarch ascending aortic replacement/ Aortic root replacement using a 27 mm valved conduit/Ligation of left and right coronary ostia as
they were dissected coronary bypass grafting to an acute marginal/Relocation of previous vein grafts onto this acute marginal vein graft/Temporary chest packing, open chest, by Dr. Sullivan, 03/07/25, pod#22
-S/p placement of a 5.5 direct aortic Impella LVAD on 03/08/[address] Sullivan
-Cardiac tamponade/ Cardiovascular collapse- s/p Emergency bedside reopening of chest and the evacuation of clot; ligation of INA, which was the bleeding source; repacking with 1 vaginal pack and Kerlix; replacement of new chest tubes by Dr. Sullivan
on 03/08/25
S/p�mediastinal�reexploration/irrigation and placement of�6mm�ringed PTFE graft around the greater�saphaenous�graft. ���S/P�Emergent�Ligation of IAN, Coronary artery bypass grafting x 1 (Aortic Graft to RSVG to RSVG - T-graft)�03/09
-S/P Washout with antibiotic solution inspection of all surgical sites and closure with wires and plates, by Dr. Sullivan, 03/11/25
-S/P Endotracheal bronchoscopy with lavage, by Dr. Carpenter, 03/07/25
-S/p Impella wean/removal at bedside by Dr. Sullivan 03/12/25
-S/P Bronchoscopy at bedside by Dr. Sullivan 03/12/25
-s/p left thoracentesis 03/22
- s/p PEG 03/22
- s/p right thoracentesis 03/23
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
-Worsening of aortic valve insufficiency to severe secondary to dissection
-Acute on chronic congestive heart failure with volume overload secondary to new aortic valve insufficiency, requiring mechanical cardiac support with Impella 5.5
-Hypertension
-Hyperlipidemia
-Hypothyroidism
-AFIB on Eliquis
-Ischemic CM
-Recent cardiac surgery over 20 days ago
-Mitral valve insufficiency status post repair
-Tricuspid insufficiency status post repair
-Coronary artery disease status post CABG
-S/P CABG x 4, MV repair, TV repair, MAZE, and EVI exclusion, Dr. Sullivan 02/16/25, Readmitted for SOB on 03/04
-Acute intraop/postop blood loss/Anemia (transfused 14u PRBC's)
-Acute intraop and postop coagulopathy (Administered 10mg Factor VII, 4 of cryo and 11 FFP ); chest packed and kept opened until 03/11/25
-Acute postop thrombocytopenia (transfused 11 {5pks} plts)
-Acute postop Pulmonary insufficiency
-Acute postop VDRF
-Acute postop Metabolic Acidosis, followed by metabolic alkalosis
-Acute postop Lactic acidosis
-IRON
-Cardiac tamponade 03/08/25
-Acute postop cardiogenic shock with MCS
-Acute postop edema
-Acute postop a-fib
-Acute postop hyponatremia/hypernatremia
-acute post-op B/L pleural effusions
- acute postop dysphagia (d/t VDRF)
- acute postop pressure injury R scapulae/multiple skin tears
Discussed patient care with: Cardiology, Nursing, Respiratory Therapy, Pharmacy and Care Team
Subjective
-
Date of Service: March 29, 2025
Pt offers no complaints, feeling better each day
Objective Data
-
PT 18.5 Sec (11.4-14.6) H 03/14/25 04:33
INR 1.52 03/14/25 04:33
APTT Cancelled 03/22/25 17:33
Vital Signs
Vital Signs
Temp Pulse Resp BP Pulse Ox
97.8 F 82 18 122/72 97
03/29/25 00:00 03/28/25 20:44 03/29/25 00:00 03/28/25 20:44 03/29/25 00:00
CT Intake/Output/Weight
03/28/25 03/28/25 03/29/25
06:59 18:59 06:59
Intake Total 1675 / 3155 1380 / 1930 550 / 1930
Output Total 1100 / 2200 725 / 1250 525 / 1250
Balance 575 / 955 655 / 680 25 / 680
SaO2: 97 (RA)
Physical Exam
-
General: Awake and Oriented (x2, not fully oriented to place)
Cardiovascular: Regular rate & rhythm, No Murmurs, No Rub and No Gallop
Respiratory: Decreased Breath Sounds (at bases, otherwise clear )
Sternum: Stable
Incision: Clean, Dry, Intact and Dressing Intact
Extremities: Edema +2
Data Reviewed
-
Lab Results: Results Reviewed
Medications: Active Meds Reviewed
Chest X-Ray: Report Reviewed and Image Reviewed
ECG: Report Reviewed and Image Reviewed
[2025-03-29 04:25] LABS: Hematocrit 30.0 % (39.0-52.0); Hemoglobin 8.7 g/dL (13.0-18.0); Mean Corp Hgb Conc. 29.0 g/dL (33.0-37.0); Mean Corpuscular Volume 107.5 fL (80.0-94.0); Platelet Count 188 10^3/uL (130-400); Red Cell Dist. Width 21.3 % (11.5-14.5)
[2025-03-29 04:47] LABS: Prealbumin (Transthyretin) 10.8 mg/dl (17.6-36.0)
[2025-03-29 04:49] LABS: ALT (SGPT) 105 U/L (0-50); AST (SGOT) 110 U/L (17-59); Albumin 2.2 g/dl (3.5-5.0); Alkaline Phosphatase 204 U/L (38-126); Blood Urea Nitrogen 41 mg/dl (9-20); Calcium 7.8 mg/dl (8.4-10.2); Chloride 107 mmol/L (98-107); Estimated Creatinine Clearance 97 ml/min; Glucose 80 mg/dl (70-99); Magnesium 1.9 mg/dl (1.6-2.3); Potassium 4.9 mmol/L (3.5-5.1); Sodium 141 mmol/L (135-145); Total Protein 5.0 g/dl (6.3-8.2); eGFR > 60.00
[2025-03-29 05:26] LABS: Carbon Dioxide 34 mmol/L (22-30)
[2025-03-29] MEDS: SYNTHROID 150 MCG TUBE (06:19)
[2025-03-29] MEDS: PACERONE 200 MG TUBE (06:19)
[2025-03-29] MEDS: LOPRESSOR 37.5 MG TUBE (07:26)
[2025-03-29] MEDS: KCL ELIXIR 20 MEQ TUBE (07:26)
[2025-03-29] MEDS: BUMEX 1 MG IV (07:26)
[2025-03-29] MEDS: PREVACID 30 MG TUBE (07:26)
[2025-03-29] MEDS: SENOKOT TUBE (07:27)
[2025-03-29] MEDS: ELIQUIS 5 MG TUBE (07:27)
[2025-03-29] MEDS: LOW STRENGTH ASPIRIN 81 MG TUBE (07:27)
--- NOTE | 2025-03-29 09:17 | W.PN.CD ---
Today's Communication / Plan
-
Contin ue efforts to optimie GDMT
would add Valsartan 20mg a day as BP allows. BP higher this morning but trendingdown after meds. SBP 104. Monitor on current regimen and continue to assess.
Can add Farxiga 10 mg a day
change metoprolol to Toprol XL
Impression / Plan
-
Impression/Plan: 74 yo male with PMH of ICM EF 35-40%, chronic HFrEF, persistent A fib on eliquis, HTN, CAD s/p CABG x 4, MV repair, TV repair, MAZE, and EVI exclusion with Dr. Sullivan (02/16/25); admitted on 03/04/2025 with acute on chronic HFrEF,
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
#Aortic dissection
-Acute, Lorraine type A w/ involvement of b/l Coronary ostia and circumferentially around the root causing severe AI, distally to the Aorto-iliac bifurcation complicated by shock.
-s/p #27 valved conduit and hemiarch replacement, ligation of L and R coronary ostia as they were dissected; bypass grafting to an acute marginal and relocation of previous vein grafts onto acute marginal vein graft.
-Loss of Impella pulsatility lead to TTE guided repositioning. Patient was re-opened at the bedside, revealing clot around the right ventricle and SVG that appeared to compress both. The clot was evacuated (05/08/2025).-Arterial bleeding was
observed from the IAN bed, which was clipped and a sternal wire site which was double ligated with good hemostasis (03/08/2025).
-Patient returned to the OR for ligation of the IAN (persistent bleeding) and re-bypass to address the angulation of the original SVG to Diag, which is thought to be leading to his multiple hypotensive episodes (03/09/
#mental status
improving
#CAD
e.
-s/p CABG x 4, MV repair, TV repair, MAZE, and EVI exclusion with Dr. Sullivan (02/16/25).
-CABG anatomy has been altered due to compression/ischemia after dissection repair.
-The current anatomy is MAGANA to LAD, SVG from Ao graft to SVG to diagonal, sequential SVG Y-graft from diagonal graft to OM1 to LPL.
-Secondary prevention as tolerated.
#HFrEF/ICMO
-LV ejection fraction 25 to 30% by echo 03/08/2025.EF 30-35% on echo 03/28/25
-GDMT when hemodynamics will tolerate:
-Diuretics: Bumetanide 1 mg IV daily
-Beta frantz: Metoprolol
-ACEI/ARB/ARNi: Blood pressure and IRON have improved would consider addition of low-dose of valsartan.
-MRA: On hold due to BP/IRON.
-SGLT2i:O consider starting now that renal function has recovered
-ICD: Not currently indicated. repeat echo in 3 months
edema - improving down 10kg from 03/21/25- 03/28/25
pleural effusion. noted on echo . small on CXR. montor with diuresis
#Anemia
-Post operative.
-Continue to monitor.
#PNA
-Acute.
-Respiratory culture positive for Enterobacter amnigenus (Amoxicillin-R, Amoxicillin/Clavulanate-R, Ampicillin/Sulbactam-R, Cefazolin-R, Ceftriaxone-I).
-Resolved.
#Atrial fibrillation
-Persistent.
-Currently in atrial flutter.
-Rate/rhythm control with amiodarone, s/p MAZE with Dr. Sullivan, 02/16/2025.
-CHADS2-Vasc = 5 (CHF, HTN, Age x2, vascular disease).
-Anti-thrombotic therapy with apixaban 5 mg BID, S/P LAAE (#40 AtriClip, SN [id number]) with Dr. Sullivan, 02/16/2025.
#IRON
-Improving (high of 2.5), creatinine now 0.8
-Nephrology has consulted this admission.
-Continue diuresis and monitor Na and creatinine
Subjective/Interval History:
Stable.
DATA:
TTE, 03/04/2025:
SUMMARY
1. Moderately reduced LV systolic function. Ejection fraction is 35-40%. Global hypokinesis.
2. S/p mitral valve repair with peak/mean gradients of 15/5 mmHg. Trace mitral valve regurgitation.
3. Moderate/severe aortic regurgitation. PHT approx 250 msec.
4. S/p tricuspid valve repair with mean gradient of 2 mmHg. Mild tricuspid regurgitation. Estimated PASP 38 mmHg, assuming RAP 8 mmHg. Mildly elevated PASP.
5. Compared to 02/19/25: LVEF is stable in 35-40% range, mitral valve and tricuspid valve repairs are stable; aortic regurgitation has progressed from mild/moderate to moderate/severe.
SAJAN, 03/07/2025:
SUMMARY
1. There is a Lorraine type A DeBakey class I aortic dissection present.
2. Trileaflet aortic valve. Severe aortic regurgitation due to prolapse of the left vs non coronary cusp and aortic dissection.
3. Low normal ventricular systolic function. LVEF 45-50%.
4. S/p tricuspid valve repair. Trace residual tricuspid regurgitation.
5. S/p mitral valve repair. Trace residual mitral regurgitation.
6. Dr. Sullivan (CT surgery) notified of findings at time of study.
CT surgery, 03/07/2025:
Procedure(s) Performed:
1. Ultrasound-guided access using Seldinger technique 2 the right common femoral artery and vein with percutaneous access using a 25 Armenian femoral venous cannula
2. Redo sternotomy with extensive adhesiolysis (Modifier 22 for additional dissection time of 1 hour)
3. Direct aortic cannulation using ultrasound and Seldinger technique with a SAJAN guidance verifying true lumen access
4. Moderate hypothermic circulatory arrest with antegrade cerebral perfusion
5. Hemiarch ascending aortic replacement
6. Aortic root replacement using a 27 mm valved conduit
7. Ligation of left and right coronary ostia as they were dissected coronary bypass grafting to an acute marginal
8. Relocation of previous vein grafts onto this acute marginal vein graft
9. Placement of temporary atrial ventricular pacing wires
10. Transesophageal echocardiography
11. Temporary chest packing, open chest.
Impella Placement, 03/08/2025:
Procedure(s) Performed:
1. The temporary dressing over top of the open chest was removed
2. Placement of atrial pacing wires
3. Anastomosis of a 10 mm straight tube graft off of the ascending aortic graft, graft to graft anastomosis
4. Graft tunneled to the left supra clavicular region between the strap muscles
5. Placement of a 5.5 direct aortic Impella LVAD
6. Chest closure in usual fashion
TTE, 03/08/2025:
SUMMARY
1. TDS.
2. In limited views, left ventricle appears normal sized with severely reduced systolic function. Left ventricle ejection fraction is 25-30% by visual estimation. Global hypokinesis. S/p Impella 5.5 insertion which appears to be appropriately
placed.
3. In limited views right ventricle appears normal sized with mildly reduced systolic function. Right ventricle does appear to expand in diastole.
4. Limited valvular interrogation.
5. Compared to SAJAN earlier in day, overall, no significant change.
Bedside Rexploration, 03/08/2025:
Procedure: Emergency bedside reopening of chest and the loculation of clot ligation of IAN which was the bleeding source, repacking with 1 vaginal pack and Kerlix and replacement of new chest tubes
CT surgery re-exploration, 03/09/2025 (morning):
PROCEDURES:
1. Mediastinal reexploration/irrigation and removal of packing.
2. Repositioning of proximal course of greater saphenous vein graft
with several 6-0 Prolene sutures (placed/subsequently removed).
3. Placement of 6 mm ringed PTFE graft around proximal segment of
greater saphenous vein graft .
4. Replacement of new mediastinal packing (1 vaginal pack and
partial roll of Kerlix; syringe based sternal separation).
5. Reexploration with replacement of new open chest dressing.
CT surgery re-exploration, 03/09/2025 (afternoon):
Procedure(s) Performed:
1. Reopening of temporary chest coverage.
2. Ligation of IAN.
3. Coronary artery bypass grafting x 1 (Aortic Graft to RSVG to RSVG - T-graft).
4. Open vein harvest of the left thigh.
5. Transesophageal echocardiography.
6. Repacking of chest and placement of temporary dressing.
Physical Exam
Vital Signs/Labs
Vital Signs
Temp Pulse Resp BP Pulse Ox
97.5 F 78 18 134/89 98
03/29/25 08:00 03/29/25 08:00 03/29/25 00:00 03/29/25 07:26 03/29/25 07:42
03/28/25 03/29/25 03/30/25
06:59 06:59 06:59
Actual Weight 84.8 kg 85.2 kg
03/29/25 04:05
03/29/25 04:05
PT 18.5 Sec (11.4-14.6) H 03/14/25 04:33
INR 1.52 03/14/25 04:33
APTT Cancelled 03/22/25 17:33
Magnesium 1.9 mg/dl (1.6-2.3) 03/29/25 04:05
Triglycerides 111 mg/dl (10-149) 03/13/25 04:21
03/04/25
15:44
Aym-Q-Ttwrmpthjvn Pept 2970
Physical Exam
Constitutional: No acute distress
Cardiovascular: Rhythm & rate is regular
Respiratory: Lungs clear to auscul. and Rhonchi Absent
GI: Soft and Non tender
Neuro/Psych: Alert
Other: Other (edema bilaterally)
Data Reviewed
-
Date of Service: March 29, 2025
Medical Decision Making: Reviewed Test Results
Echo: Report Reviewed by me
Medical Tests (PFT, Pathology etc): Report Reviewed by me
Labs: Labs Reviewed by me
--- NOTE | 2025-03-29 09:19 | W.DCSUMMARY ---
Discharge Summary
Discharge Data
Date of Admission: 03/04/25
Date of Discharge: 03/29/25
Total time spent discharging patient (in min): 60
-
Pending Results: No
Hospital Course
Primary care physician:
Dr. Ponce
Outpatient treatment specialist:
Dr. Moore
Inpatient consultants:
CBC, executive chairman, infectious disease, interventional radiology, nephrology, general surgery
Procedures:
-S/p Emergent Redo sternotomy with extensive adhesiolysis (Modifier 22 for additional dissection time of 1 hour)/Hemiarch ascending aortic replacement/ Aortic root replacement using a 27 mm valved conduit/Ligation of left and right coronary ostia as
they were dissected coronary bypass grafting to an acute marginal/Relocation of previous vein grafts onto this acute marginal vein graft/Temporary chest packing, open chest, by Dr. Sullivan, 03/07/25, pod#22
-S/p placement of a 5.5 direct aortic Impella LVAD on 03/08/[address] Sullivan
-Cardiac tamponade/ Cardiovascular collapse- s/p Emergency bedside reopening of chest and the evacuation of clot; ligation of IAN, which was the bleeding source; repacking with 1 vaginal pack and Kerlix; replacement of new chest tubes by Dr. Sullivan
on 03/08/25
S/p�mediastinal�reexploration/irrigation and placement of�6mm�ringed PTFE graft around the greater�saphaenous�graft. ���S/P�Emergent�Ligation of IAN, Coronary artery bypass grafting x 1 (Aortic Graft to RSVG to RSVG - T-graft)�03/09
-S/P Washout with antibiotic solution inspection of all surgical sites and closure with wires and plates, by Dr. Sullivan, 03/11/25
-S/P Endotracheal bronchoscopy with lavage, by Dr. Carpenter, 03/07/25
-S/p Impella wean/removal at bedside by Dr. Sullivan 03/12/25
-S/P Bronchoscopy at bedside by Dr. Sullivan 03/12/25
-s/p left thoracentesis 03/22
- s/p PEG 03/22
- s/p right thoracentesis 03/23
Primary Diagnosis:
1. Type A dissection status post cardiac surgery
Secondary Diagnoses:
1. 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
2. Worsening of aortic valve insufficiency to severe secondary to dissection
3. Acute on chronic congestive heart failure with volume overload secondary to new aortic valve insufficiency
4. Hypertension
5. Hyperlipidemia
6. Recent cardiac surgery over 20 days ago
7. Mitral valve insufficiency status post repair
8. Tricuspid insufficiency status post repair
9. Coronary artery disease status post CABG
-Acute intraop/postop blood loss/Anemia (transfused 14u PRBC's)
-Acute intraop and postop coagulopathy (Administered 10mg Factor VII, 4 of cryo and 11 FFP ); chest packed and kept opened until 03/11/25
-Acute postop thrombocytopenia (transfused 11 {5pks} plts)
-Acute postop Pulmonary insufficiency
-Acute postop VDRF
-Acute postop Metabolic Acidosis, followed by metabolic alkalosis
-Acute postop Lactic acidosis
-IRON
-Cardiac tamponade 03/08/25
-Acute postop cardiogenic shock with MCS
-Acute postop edema
-Acute postop a-fib
-Acute postop hyponatremia/hypernatremia
-acute post-op B/L pleural effusions
- acute postop dysphagia (d/t VDRF)
- acute postop pressure injury R scapulae/multiple skin tears
HPI: 74 y/o male with recent cardiac surgery presented to [facility] ER with complains of shortness of breathe. SAJAN revealed Type A dissection and patient was taken to the OR emergently.
Hospital course:
Patient was readmitted to [facility] with complaints of shortness of breath. A limited transthoracic echocardiogram was performed in the emergency room which showed moderate to severe AI. He was started on IV Lasix twice a day until
planned SAJAN for Friday morning. On 03/07 a type a dissection was found on SAJAN and confirmed with CT. Patient was emergently taken to the OR by Dr. Sullivan for a type a dissection repair. Patient returned to the CVICU on Levophed, epi, milrinone,
Precedex, and insulin infusions patient received multiple blood products and returned to CV ICU with an open chest. Overnight patient continued to decompensate and on 03/08 postoperative day 1 patient was taken back to the CV OR for a Impella 5.5
placement. Patient remained coagulopathic and received multiple blood products again. Throughout the day patient was stable until suddenly patient required increased pressor requirements and a emergent bedside open chest was performed for cardiac
tamponade for clot evacuation. A dialysis catheter was also placed for continuous renal replacement therapy for fluid removal. On 03/09 patient was taken back to the operating room for a ringed graft and chest washout. After this procedure patient
with brought back to the CVICU for the remainder of his recovery. Unfortunately patient once again became hemodynamically unstable and patient's chest was reopened at bedside. Clots were evacuated again and patient was taken back to the CV OR for
an additional bypass. Once patient returned to the CVICU, he showed significant hemodynamic improvement and medications were weaned. On 03/10 postoperative day 3 patient was doing well overall vasopressin was being weaned and patient was starting
to make urine while on CRRT with the addition of Lasix. On 03/11 postoperative day 4 patient was given 1 unit of packed red blood cells and 1 platelets. CRRT was discontinued and patient was brought back to the OR for chest closure. On 03/12 POD
#5, patient's Impella was removed and a bronchoscopy was preformed. Patient was maintained on the ventilator with SBT until 03/14, POD #7, patient was extubated, Open chest antibiotics were also completed. Patient was started on a bumex gtt for
aggressive fluid removal. epicardial wires and chest tubes were removed. Dialysis catheter was removed. Patient seen by speech therapy. Unfortunately after multiple failed speech evaluations a dobhoff was placed for medications and feeds until a
PEG tube was placed by general surgery on 03/22. Patient was also found to be bilateral pleural effusions. interventional radiology was consulted for thoracentesis. Patient was on heparin infusion for atrial fibrillation but was eventually
transitioned to eliquis 5mg BID. Patient was transitioned to intermittent pushes of IV bumex from a bumex gtt. On 03/28, patient showed progression when speech therapy and was started on a diet. Overall, patient status has significantly improved and
was deemed stable for discharge to LTAC.
Home medication changes:
see below
Discharge Plan
-
Patient Disposition: [facility]
Condition: Fair
Discharge Orders:
Discharge Patient (As Directed); Ordered 03/29/25
Ordered By: Luma Sands
Discharge Date and Time
Print Language: LATVIAN
--- NOTE | 2025-03-29 09:29 | PTCARENOTE ---
Pt had a good night, got up to the chair early and just ate 75% of his breakfast. Aflutter on tele. +1 LUE edema, +1 BLLE edema, + pulses. 98% on RA, breath sounds are clear. Tube feeding at goal 65/hr with 50 ml flush. Bleeding at PEG site has
slowed significantly but site is still oozing. Incisions COMPLEX MANAGER and intact. IV intact. Call bustillos within reach. Pt makes needs known.
--- NOTE | 2025-03-29 11:23 | CM ---
Reviewed chart. Received telephone call from [facility] Ad[facility] who confirms bed available today. The report number for the nurse report is ([phone]). The fax number for discharge instructions is ([phone]) and the
MD to MD report goes to De. Hathaway,(([phone]). Unit Sec. made ambulance arrangements [facility] for a 3:30 p.m. transfer time. Updated Mr. and Mrs. Law. Updated the medical team. Medical work-up in progress. The discharge plan
is to go to [facility] when medically stable.
--- NOTE | 2025-03-29 15:51 | PTCARENOTE ---
Pt discharged with acute care. Cierra lifted into stretcher and pt is now leaving with his paperwork.
== END 2025-03-29 15:50 | DRG 1 ==
LOC: CVICU 18:55
PROVIDERS: Anesthesiology; Clinical Nurse Specialist Acute Care; Emergency Medicine; Internal Medicine Nephrology; Nurse Practitioner; Physician Assistant Medical; Specialist; Student in an Organized Health Care Education/Training Program; Surgery; Thoracic Surgery (Cardiothoracic Vascular Surgery); ADMITTING PHYSICIAN Thoracic Surgery (Cardiothoracic Vascular Surgery); CONSULT PHYSICIAN Internal Medicine; CONSULT PHYSICIAN Internal Medicine Critical Care Medicine; CONSULT PHYSICIAN Internal Medicine Gastroenterology; CONSULT PHYSICIAN Physical Medicine & Rehabilitation; CONSULT PHYSICIAN Specialist; EMERGENCY PHYSICIAN Emergency Medicine; FAMILY PHYSICIAN Student in an Organized Health Care Education/Training Program; OTHER PHYSICIAN Internal Medicine Infectious Disease
PROC: B24BZZ4 Ultrasonography of Heart with Aorta, Transesophageal (ICD-10-PCS; 2025-03-07)
PROC: 5A1955Z Respiratory Ventilation, Greater than 96 Consecutive Hours (ICD-10-PCS; 2025-03-07)
PROC: 30233N1 Transfusion of Nonautologous Red Blood Cells into Peripheral Vein, Percutaneous Approach (ICD-10-PCS; 2025-03-07)
PROC: 02Q00ZZ Repair Coronary Artery, One Artery, Open Approach (ICD-10-PCS; 2025-03-07)
PROC: 021 Heart and Great Vessels, Bypass (ICD-10-PCS; 2025-03-07)
PROC: 02RX0JZ Replacement of Thoracic Aorta, Ascending/Arch with Synthetic Substitute, Open Approach (ICD-10-PCS; 2025-03-07)
PROC: 5A1221Z Performance of Cardiac Output, Continuous (ICD-10-PCS; 2025-03-07)
PROC: 0BH17EZ Insertion of Endotracheal Airway into Trachea, Via Natural or Artificial Opening (ICD-10-PCS; 2025-03-07)
PROC: 02NN0ZZ Release Pericardium, Open Approach (ICD-10-PCS; 2025-03-07)
PROC: 02C00ZZ Extirpation of Matter from Coronary Artery, One Artery, Open Approach (ICD-10-PCS; 2025-03-08)
PROC: 5A0221D Assistance with Cardiac Output using Impeller Pump, Continuous (ICD-10-PCS; 2025-03-08)
PROC: 5A1D90Z Performance of Urinary Filtration, Continuous, Greater than 18 hours Per Day (ICD-10-PCS; 2025-03-08)
PROC: 30233R1 Transfusion of Nonautologous Platelets into Peripheral Vein, Percutaneous Approach (ICD-10-PCS; 2025-03-08)
PROC: X2HX0F9 Insertion of Conduit to Short-term External Heart Assist System into Thoracic Aorta, Ascending, Open Approach, New Technology Group 9 (ICD-10-PCS; 2025-03-08)
PROC: 30233K1 Transfusion of Nonautologous Frozen Plasma into Peripheral Vein, Percutaneous Approach (ICD-10-PCS; 2025-03-08)
PROC: 02HA0RZ Insertion of Short-term External Heart Assist System into Heart, Open Approach (ICD-10-PCS; 2025-03-08)
PROC: 021009W Bypass Coronary Artery, One Artery from Aorta with Autologous Venous Tissue, Open Approach (ICD-10-PCS; 2025-03-09)
PROC: 02S00ZZ Reposition Coronary Artery, One Artery, Open Approach (ICD-10-PCS; 2025-03-09)
PROC: 06BQ0ZZ Excision of Left Saphenous Vein, Open Approach (ICD-10-PCS; 2025-03-09)
PROC: 02U Heart and Great Vessels, Supplement (ICD-10-PCS; 2025-03-09)
PROC: 5A1D70Z Performance of Urinary Filtration, Intermittent, Less than 6 Hours Per Day (ICD-10-PCS; 2025-03-10)
PROC: 0WJC0ZZ Inspection of Mediastinum, Open Approach (ICD-10-PCS; 2025-03-11)
PROC: 0B9M8ZZ Drainage of Bilateral Lungs, Via Natural or Artificial Opening Endoscopic (ICD-10-PCS; 2025-03-11)
PROC: 0B9M8ZX Drainage of Bilateral Lungs, Via Natural or Artificial Opening Endoscopic, Diagnostic (ICD-10-PCS; 2025-03-12)
PROC: 02PW3RZ Removal of Short-term External Heart Assist System from Thoracic Aorta, Descending, Percutaneous Approach (ICD-10-PCS; 2025-03-12)
PROC: 02HV33Z Insertion of Infusion Device into Superior Vena Cava, Percutaneous Approach (ICD-10-PCS; 2025-03-15)
PROC: 0DH63UZ Insertion of Feeding Device into Stomach, Percutaneous Approach (ICD-10-PCS; 2025-03-22)
DX: I71.010 Dissection of ascending aorta (principal); D65 Disseminated intravascular coagulation [defibrination syndrome]; I25.42 Coronary artery dissection; I50.23 Acute on chronic systolic (congestive) heart failure; K72.00 Acute and subacute hepatic failure without coma; T81.11XA Postprocedural cardiogenic shock, initial encounter; J15.69 Pneumonia due to other Gram-negative bacteria; J95.2 Acute pulmonary insufficiency following nonthoracic surgery; I48.19 Other persistent atrial fibrillation; I47.20 Ventricular tachycardia, unspecified; I31.0 Chronic adhesive pericarditis; E87.4 Mixed disorder of acid-base balance; N17.9 Acute kidney failure, unspecified; Z99.11 Dependence on respirator [ventilator] status; I97.611 Postprocedural hemorrhage of a circulatory system organ or structure following cardiac bypass; D62 Acute posthemorrhagic anemia; D68.9 Coagulation defect, unspecified; I31.4 Cardiac tamponade; I48.92 Unspecified atrial flutter; G93.1 Anoxic brain damage, not elsewhere classified; E87.0 Hyperosmolality and hypernatremia; E87.1 Hypo-osmolality and hyponatremia; Y83.2 Surgical operation with anastomosis, bypass or graft as the cause of abnormal reaction of the patient, or of later complication, without mention of misadventure at the time of the procedure; I11.0 Hypertensive heart disease with heart failure; I35.1 Nonrheumatic aortic (valve) insufficiency; E78.00 Pure hypercholesterolemia, unspecified; E03.9 Hypothyroidism, unspecified; L89.90 Pressure ulcer of unspecified site, unspecified stage; I25.5 Ischemic cardiomyopathy; R13.12 Dysphagia, oropharyngeal phase; I25.10 Atherosclerotic heart disease of native coronary artery without angina pectoris; Z79.01 Long term (current) use of anticoagulants; Z79.82 Long term (current) use of aspirin; Z79.899 Other long term (current) drug therapy; Z87.891 Personal history of nicotine dependence; Z95.1 Presence of aortocoronary bypass graft
CPT/HCPCS: 32555; 39000; 71045; 71250; 71275; 74022; 74174; 74176; 74230; 76604; 80048; 80053; 80076; 80202; 81003; 81015; 82248; 82330; 82565; 82570; 82728; 82805; 82810; 82947; 82962; 83605; 83615; 83735; 83880; 83935; 84100; 84132; 84134; 84300; 84302; 84478; 84484; 84520; 85014; 85018; 85025; 85027; 85049; 85300; 85379; 85384; 85610; 85730; 86850; 86900; 86901; 86920; 86922; 87040; 87070; 87077; 87086; 87186; 87205; 87449; 87641; 87899; 88305; 88311; 92526; 92610; 92611; 92612; 93005; 93308; 93312; 93320; 93321; 93325; 93971; 93975; 94002; 94003; 94640; 97110; 97129; 97163; 97167; 97530; 97535; 99285; C1713; C1768; J0282; J1250; J1939; J2916; J7030; J7189; P9012; P9016; P9045; P9047; P9059; P9073; Q9967

== ENCOUNTER 2025-04-03 12:54 | Inpatient (IN) | payer OTHER, SELFPAY ==
[2025-04-03] VITALS (46 sets, daily range): BP systolic 86–125; BP diastolic 56–100; BMI 26.7
--- NOTE | 2025-04-03 14:01 | HPS.HSE ---
Family Physician
-
Shimon Ponce
Chief Complaint
-
Admitted from [facility] for continuing care of acute hypercabic respiratory failure.
History of Present Illness
74 y/o male with PMH of hypothyroidism, HTN, A-Fib (on Eliquis), BPH, RBBB, CAD who was at [facility] rehab following the history described below. It was noticed on 03/31/25 that he had a worsening right sided pleural effusion. Thoracentesis was planned,
however, patient developed AMS with acute hypercarbia. He required intubation and underwent pigtail placement in right hemithorax which liberated >2000ml of serous fluid. He has been unable to be weaned from mechanical ventilation and pressors and
it was decided to transfer the patient back to [facility].
The patient intially underwent CABGx4, MVrepair, TV repair, MAZE, LAAE by Dr. Sullivan on 02/16/25 and discharged on POD#6. Patient was readmitted to [facility] on 03/04/25 with complaints of shortness of breath. A limited transthoracic
echocardiogram was performed in the emergency room which showed moderate to severe AI. He was started on IV Lasix twice a day until planned SAJAN for Friday morning. On 03/07 a type a dissection was found on SAJAN and confirmed with CT. Patient was
emergently taken to the OR by Dr. Sullivan for a type a dissection repair. Patient returned to the CVICU on Levophed, epi, milrinone, Precedex, and insulin infusions patient received multiple blood products and returned to CV ICU with an open chest.
Overnight patient continued to decompensate and on 03/08 postoperative day 1 patient was taken back to the CV OR for a Impella 5.5 placement. Patient remained coagulopathic and received multiple blood products again. Throughout the day patient was
stable until suddenly patient required increased pressor requirements and a emergent bedside open chest was performed for cardiac tamponade for clot evacuation. A dialysis catheter was also placed for continuous renal replacement therapy for fluid
removal. On 03/09 patient was taken back to the operating room for a ringed graft and chest washout. After this procedure patient with brought back to the CVICU for the remainder of his recovery. Unfortunately patient once again became
hemodynamically unstable and patient's chest was reopened at bedside. Clots were evacuated again and patient was taken back to the CV OR for an additional bypass. Once patient returned to the CVICU, he showed significant hemodynamic improvement
and medications were weaned. On 03/10 postoperative day 3 patient was doing well overall vasopressin was being weaned and patient was starting to make urine while on CRRT with the addition of Lasix. On 03/11 postoperative day 4 patient was given 1
unit of packed red blood cells and 1 platelets. CRRT was discontinued and patient was brought back to the OR for chest closure. On 03/12 POD #5, patient's Impella was removed and a bronchoscopy was preformed. Patient was maintained on the
ventilator with SBT until 03/14, POD #7, patient was extubated, Open chest antibiotics were also completed. Patient was started on a bumex gtt for aggressive fluid removal. epicardial wires and chest tubes were removed. Dialysis catheter was
removed. Patient seen by speech therapy. Unfortunately after multiple failed speech evaluations a dobhoff was placed for medications and feeds until a PEG tube was placed by general surgery on 03/22. Patient was also found to be bilateral pleural
effusions. interventional radiology was consulted for thoracentesis. Patient was on heparin infusion for atrial fibrillation but was eventually transitioned to eliquis 5mg BID. Patient was transitioned to intermittent pushes of IV bumex from a bumex
gtt. On 03/28, patient showed progression when speech therapy and was started on a diet. Overall, patient status has significantly improved and was deemed stable for discharge to LTAC.
Medical History
Past Medical History
Past Medical History: Reports Arrhythmia (AFib), CAD, HTN, Hypothyroidism, Renal Failure and Valvular Disease
Additional Past Medical History:
BPH
Past Surgical History: Reports Cardiac
Additional Past Surgical History:
CABG x4, MVrepair, TVrepair, MAZE, LAAL
Aortic root replacement using a 27 mm valved conduit, Ligation of left and right coronary ostia as they were dissected coronary bypass grafting to an acute marginal with chest left open
Placement of a 5.5 direct aortic Impella LVAD, Chest closure in usual fashion
Social History
Unable to obtain full social history at this time due to: Patient Intubation
Personal:
Living: With Family
Family History
Family History: Not pertinent
Allergies / Home Medications
Allergies reflects when Allergies were last updated in [facility].
Home Medications with original date entered in [facility]
Allergy/Medication List:
NKDA
Review of Systems
-
Unable to obtain full review of systems at this time due to: Patient Intubation
Physical Exam
Physical Exam
General: Comfortable and Intubated
HEENT: Anicteric and PERRLA
Respiratory: Rhonchi and Chest Tube (right pigtail)
Cardiac: Irregular Rhythm and Peripheral Edema
GI: Soft, Non Tender, Non Distended and Peg Tube
Rectal: Deferred by Provider
Genito-urinary: Clear Urine and Buenrostro
Musculoskeletal: Edema, Left Lower Extremity and Edema, Right Lower Extremity
Skin: Warm and Other (Incision healing well)
Neuro: Alert and Sedated
Psych: Calm
Data Reviewed
-
Diagnostic Radiology: Image Personally Visualized and interpreted (ETT pulled back 2cm)
Lab Data: Labs Reviewed by me
Impression/Plan
-
IMPRESSION:
-s/p CABG
-s/p ascending aorta replacement
-Acute respiratory failure with hypercapnia
-right pleural effusion
-cardiogenic shock requiring pressors
-IRON (creatinine on amission 1.3)
-hypertension now with hypotension due to shock
PLAN:
-wean sedation
-wean and extubate if able
-diuresis
-monitor chest tube output
-monitor creatinine
[2025-04-03 14:22] LABS: B.E. 8.4 mmol/L; HCO3 32.8 mmol/L (21-28); O2 Saturation % 97.0 % (94-98); PCO2 44 mmHg (35-48); PO2 73 mmHg (83-108)
[2025-04-03 14:24] LABS: Hematocrit 37.1 % (39.0-52.0); Hemoglobin 11.7 g/dL (13.0-18.0); Mean Corp Hgb Conc. 31.5 g/dL (33.0-37.0); Mean Corpuscular Volume 102.2 fL (80.0-94.0); Nucleated Red Blood Cells % 0.2 % (-); Platelet Count 183 10^3/uL (130-400); Red Cell Dist. Width 21.6 % (11.5-14.5)
[2025-04-03] MEDS: NSS 500 IV (14:25)
[2025-04-03 14:38] LABS: ALT (SGPT) 45 U/L (0-50); AST (SGOT) 48 U/L (17-59); Albumin 2.1 g/dl (3.5-5.0); Alkaline Phosphatase 181 U/L (38-126); Blood Urea Nitrogen 48 mg/dl (9-20); Calcium 7.5 mg/dl (8.4-10.2); Chloride 96 mmol/L (98-107); Glucose 95 mg/dl (70-99); Potassium 3.2 mmol/L (3.5-5.1); Sodium 134 mmol/L (135-145); Total Protein 4.8 g/dl (6.3-8.2); Triglycerides 88 mg/dl (10-149); eGFR 57.29
[2025-04-03 14:42] LABS: APTT 37.3 Sec (23.4-35.0); INR 1.36; PT 17.1 Sec (11.4-14.6)
[2025-04-03 14:47] LABS: Carbon Dioxide 34 mmol/L (22-30)
--- NOTE | 2025-04-03 15:00 | PTCARENOTE ---
Patient received from [facility] - report given by Sandy CORTES (#[phone]); Sedated and intubated; Drowsy but responsive and able to follow commands; VSS; Afib on monitor; +3 B/L LE, +3 RUE, and +4 LUE pitting edema present; +1 radial pulses and DP
pulses present by doppler; ETT 7.5 cm at 27 cm at right lip; Ventilator settings A/C 12/500/8/5 FiO2 40%; CTx1 connected to -20 cm wall suction draining serous drainage - no air leak, tidaling, or crepitus noted; Lungs diminished at bases, rhonchi
throughout; SpO2 97-100%; OGT present draining yellow drainage; PEG tube present; Hypoactive BS; Buenrostro catheter draining clear, yellow urine with sediment; Surgical sites and wounds intact - see nursing flowsheets for further details; PIVx3 - #20
right hand, #20 right forearm, and #20 left forearm; Propofol, levophed, and normal saline infusing; See nursing documentation for further information
[2025-04-03 15:12] LABS: Magnesium 2.1 mg/dl (1.6-2.3)
--- NOTE | 2025-04-03 15:15 | PTCARENOTE ---
CXR done at bedside; RT Armando Espinoza adjusted ETT from 27 cm to 25 cm as per CARLIE Gonzáles and secured at right lip
[2025-04-03] MEDS: KCL 270 MEQ IV ×2 (15:20→20:56)
[2025-04-03] MEDS: CALCIUM CHLORIDE 10% SYRINGE 1000 MG IV (15:21)
--- NOTE | 2025-04-03 15:30 | PTCARENOTE ---
RT in room and patient placed on CPAP breathing trial; Recheck ABG around 1715
[2025-04-03 16:44] LABS: B.E. 7.2 mmol/L; HCO3 32.5 mmol/L (21-28); O2 Saturation % 98.5 % (94-98); PCO2 49 mmHg (35-48); PO2 88 mmHg (83-108); Potassium 3.2 mMOL/L (3.5-5.1); Sodium 134 mMOL/L (136-145)
[2025-04-03] MEDS: LIPITOR TUBE (17:19)
--- NOTE | 2025-04-03 17:28 | PTCARENOTE ---
ABG's reviewed with CARLIE Gonzáles; RT at bedside; Patient extubated at 1715 and placed on 6L NC; IS 500 ml
[2025-04-03] MEDS: LOPRESSOR 50 MG TUBE (20:31)
[2025-04-03] MEDS: ELIQUIS 5 MG TUBE (20:31)
[2025-04-03] MEDS: BUMEX 1 MG IV (21:04)
--- NOTE | 2025-04-03 22:46 | PTCARENOTE ---
Assumed care of patient at 1999. Pt alert and able to follow commands; VSS; NSR on monitor; Radial pulses +1 and DP pulses present by doppler; PIVx3 - 20 right hand, 20 right forearm, and 20 left forearm 8 L NC, CTx1 connected to -20 cm wall
suction, - no air leak or crepitus noted; Lungs diminished at bases, rhonchi, SpO2 93-96%; PEG tube present; Bowel Sounds Hypoactive, meds given via Peg tube. ; Buenrostro catheter draining clear, yellow urine; Surgical sites and wounds intact - Patient
on levophed@ 1, and normal saline @50 infusing; See nursing documentation for further information. Bumex 1 g and IV KCl 40 meq given
[2025-04-04] VITALS (80 sets, daily range): BP systolic 81–106; BP diastolic 50–77; BMI 26.7
[2025-04-04] MEDS: NSS 500 IV
--- NOTE | 2025-04-04 02:02 | W.PN.CT ---
Today's Communication / Plan
-
-monitor chest tube drainage
-continue ISB
-continue diuresis
Assessment / Plan
-
-s/p CABG
-s/p ascending aorta replacement
-Acute respiratory failure with hypercapnia
-right pleural effusion
-cardiogenic shock requiring pressors
-IRON (creatinine on amission 1.3)
-hypertension now with hypotension due to shock
Subjective
Procedure
Transferred from OSH where he underwent right pigtail placement and needed to be intubated due to hypercarbic respiratory failure.
-
Date of Service: April 04, 2025
Objective Data
-
Lab Results
04/04/25 04:22
04/04/25 03:20
PT 17.1 Sec (11.4-14.6) H 04/03/25 14:06
INR 1.36 04/03/25 14:06
APTT 37.3 Sec (23.4-35.0) H 04/03/25 14:06
Vital Signs
Vital Signs
Vital Signs
Temp Pulse Resp BP Pulse Ox
97.9 F 66 18 85/58 92
04/04/25 03:00 04/04/25 03:15 04/04/25 03:15 04/04/25 03:15 04/04/25 03:15
CT Intake/Output/Weight
04/03/25 04/03/25 04/04/25
06:59 18:59 06:59
Intake Total 643.8 / 1635.2 991.4 / 1635.2
Output Total 465 / 1320 855 / 1320
Balance 178.8 / 315.2 136.4 / 315.2
SaO2: 93
Physical Exam
-
General: AOx3
Cardiovascular: Regular rate & rhythm
Respiratory: Rales
Sternum: Stable
Incision: Clean, Dry and Intact
Extremities: Edema +2 (b/l LE's)
[2025-04-04 03:58] LABS: Hematocrit 24.9 % (39.0-52.0); Hemoglobin 7.8 g/dL (13.0-18.0); Mean Corp Hgb Conc. 31.3 g/dL (33.0-37.0); Mean Corpuscular Volume 100.8 fL (80.0-94.0); Nucleated Red Blood Cells % 0.2 % (-); Platelet Count 219 10^3/uL (130-400); Red Cell Dist. Width 21.7 % (11.5-14.5)
[2025-04-04 04:24] LABS: Blood Urea Nitrogen 42 mg/dl (9-20); Calcium 7.8 mg/dl (8.4-10.2); Carbon Dioxide 35 mmol/L (22-30); Chloride 99 mmol/L (98-107); Estimated Creatinine Clearance 70 ml/min; Glucose 74 mg/dl (70-99); Potassium 4.1 mmol/L (3.5-5.1); Sodium 132 mmol/L (135-145); eGFR > 60.00
[2025-04-04 04:33] LABS: Hematocrit 25.9 % (39.0-52.0); Hemoglobin 7.9 g/dL (13.0-18.0)
--- NOTE | 2025-04-04 04:47 | PTCARENOTE ---
patient resting, awake, states he can not sleep, watching TV. Labs drawn HBG 7.8 redrawn, 7.9 notified provider.
[2025-04-04] MEDS: PACERONE 200 MG TUBE (06:16)
[2025-04-04] MEDS: SYNTHROID 150 MCG TUBE (06:17)
[2025-04-04] MEDS: BUMEX 2 MG IV (08:05)
[2025-04-04] MEDS: LOW STRENGTH ASPIRIN 81 MG TUBE (08:06)
[2025-04-04] MEDS: PREVACID 30 MG TUBE (08:06)
[2025-04-04] MEDS: LOPRESSOR 50 MG TUBE ×2 (08:06→20:04)
[2025-04-04] MEDS: FARXIGA 10 MG PO (08:06)
[2025-04-04] MEDS: ELIQUIS 5 MG TUBE ×2 (08:06→20:04)
--- NOTE | 2025-04-04 10:09 | CON.CAR ---
Addendum entered and electronically signed by Nagi Sultana MD 04/04/25 14:14:
I saw and evaluated the patient, and I provided the substantive portion of the medical decision making.
I reviewed and agree with the note by KRISHNA Martinez and it accurately reflects our care.
I personally performed the medical decision making of the this encounter and my assessment and plan is below:
Mr. Law is a 74-year-old gentleman with a recent complicated hospital course in the setting of X 4, mitral valve repair, TV repair, maze and left atrial exclusion complicated by a Osage type a aortic dissection, severe aortic regurgitation
status post return to the OR for aortic root repair and AVR. Postop course was also complicated and summarized well below. He has a chronic history of an ischemic cardiomyopathy with an EF of 30 to 35%, persistent atrial fibrillation on Eliquis,
and hypertension who was discharged last week to a long-term acute care facility. He was rehospitalized in the setting of recurrent pleural effusion to [facility] requiring intubation and a pigtail catheter insertion. He was then
transferred here and successfully extubated this morning. Transiently he required low-dose Levophed but now has been weaned off. Currently, he states he is feeling as well as expected. He is getting tube feeds. He is slowly being diuresed.
Denies any chest pain or shortness of breath.
He is alert and oriented x 3 no apparent distress, decreased breath sounds bilaterally but no wheezes rales or rhonchi, regular rate and rhythm with a normal S1-S2, mild anasarca.
Nurse Pat at the bedside during our examination and reports he is slowly putting up to IV Bumex. He had been on IV fluids when he first arrived due to poor p.o. intake and these have been stopped and lieu of tube feeds.
Assessment:
Acute hypoxic respiratory failure: Initially required ventilator support, was recently extubated this morning. Continue to monitor closely in the case for need for emergent reintubation.
Acute HFrEF: There is a large degree of third spacing given an albumin of 2.1, but certainly some heart failure at play. Recommend trying to maintain slightly -500 cc to 1 L today. Additional IV Bumex dose if needed in the p.m. Continue Farxiga.
If blood pressure allows will add spironolactone.
Additional problems:
Type a aortic dissection:. Beta-frantz statin
PAF: Current in atrial fibrillation rate controlled continue beta-frantz and Eliquis
CAD: Chest pain-free, continue statin and beta-frantz
Discussed with critical care CVICU nursing pad at the bedside
Original Note:
Consultation
Consultation Request
Date/Time Consultation Requested: 04/04/25 0845
Date/Time Consultation Performed: 04/04/25 0950
Requesting Provider: Amanda Brooks
Performing Provider: Maddy KELLER for Dr. Sultana
Reason for Consultation: respiratory failure
Medical History
-
Chief Complaint: SOB, respiratory failure
History of Present Illness:
74 yo male (patient of Dr. Moore) with PMH of ICM EF 30-35%, chronic HFrEF, persistent A fib on Eliquis, HTN, and CAD. He is s/p CABG x 4, MV repair, TV repair, MAZE, and EVI exclusion with Dr. Sullivan (02/16/25). He was later readmitted on 03/04/2025
with acute on chronic HFrEF. He was found to have severe AR due to Osage type A aortic dissection. He was taken to the OR for management of this. He had complex post-op course requiring pressors, blood products, Impella, ventilator, CRRT, PEG
tube, and multiple procedures described below. There was also PNA on abx. He also had CHF and he was diuresed. He was d/c'd to an LTACH, but developed pleural effusion and respiratory distress and was admitted to [facility].
He required intubation and a pigtail catheter. He was transferred here. He was on low-dose Levophed, but is now off. He was extubated and is on O2 by NH. He is being diuresed here as able. He is in no distress at the time of my assessment and is OOB
to chair.
Past Medical History
Past Medical History: Arrhythmias (paroxysmal A fib), CAD, CHF (chronic HFrEF), HTN, Hypercholesterolemia, Valvular Disease and Other (as above)
Past Surgical History: Cardiac (CABG, MV repair, TV repair)
Social History
Tobacco: Non-Smoker
Family History
Family History: Early CAD (none)
Allergies / Home Medications
Allergy/AdvReac Type Severity Reaction Status Date / Time
No Known Allergies Allergy Verified 02/10/25 11:39
�Medication �Instructions �Recorded �Confirmed �Type
dapagliflozin propanediol 10 mg 10 mg PO DAILY Heart Failure #60 02/22/25 03/05/25 Rx
tablet tabs
acetaminophen 325 mg tablet 650 mg (2 x 325 mg) feeding tube 03/27/25 Rx
Q4HPRN PRN mild pain,headache,temp
>101F #0 tabs
apixaban 5 mg tablet (Eliquis) 5 mg feeding tube BID Arrhythmia 03/27/25 Rx
#60 tabs
aspirin 81 mg chewable tablet 81 mg feeding tube DAILY Blood 03/27/25 Rx
clot prevention/tx #0 tabs
atorvastatin 40 mg tablet 40 mg feeding tube QPM High 03/27/25 Rx
cholesterol #30 tabs
lansoprazole 30 mg delayed 30 mg feeding tube DAILY GI 03/27/25 Rx
release,disintegrating tablet prophylaxis on Eliquis #30 tabs
levothyroxine 150 mcg tablet 150 mcg feeding tube DAILY@0600 03/27/25 Rx
hypothyroidism #30 tabs
magnesium hydroxide 400 mg/5 mL 30 ml feeding tube BIDPRN PRN if 03/27/25 Rx
oral suspension (Milk of Magnesia) no BM in three days #3,000 mL
sennosides 8.6 mg tablet (Abida-lorena) 8.6 mg feeding tube Q12 03/27/25 Rx
Constipation #60 tabs
amiodarone 200 mg tablet (Pacerone) 200 mg feeding tube DAILY AT 0700 03/29/25 Rx
Arrhythmia #30 tabs
bisacodyl 10 mg rectal suppository 10 mg MI DAILYPRN PRN constipation 03/29/25 Rx
#50 ea
bumetanide 0.25 mg/mL injection 1 mg (4 mL) IV DAILY Fluid 03/29/25 Rx
solution retention/Swelling #100 mL
metoprolol tartrate 25 mg tablet 50 mg (2 x 25 mg) feeding tube BID 03/29/25 Rx
Blood pressure #30 tabs
potassium chloride 20 mEq/15 mL 20 meq (15 mL) feeding tube DAILY 03/29/25 Rx
oral liquid Electrolyte Repletion #0 mL
Review of Systems
-
History Source: Patient and Other (chart)
Respiratory: Trouble Breathing
Physical Exam
Vital Signs
Temp Pulse Resp BP Pulse Ox
98.2 F 60 21 98/56 97
04/04/25 08:00 04/04/25 08:45 04/04/25 08:45 04/04/25 08:45 04/04/25 08:55
Lab Results
04/04/25 04:22
04/04/25 03:20
Physical Exam
General: Well Developed, Well Nourished and No Apparent Distress
HEENT: Normocephalic and Anicteric
Respiratory: Other (diminished to bases, on O2 by NC; had pigtail catheter)
Cardiac: Irregular Rhythm
GI: Other (has PEG tube)
Genito-urinary: Clear Urine (in collection bag)
Musculoskeletal: Edema (moderate pedal edema)
Skin: Warm, Dry and Other (midsternal incision CDI)
Neuro: Awake, Alert and Oriented (x 2 ( did not know year))
Psych: Calm
Impression / Plan
-
Respiratory failure:
-diagnosis is threat to life
-now extubated and on O2 by NC
-getting diuresed as tolerated with [id number] HFpEF (weight up, effusions, LE edema). D/c weight 85.2, currently 89.2. Diuresis underway.
-CXR: Small bilateral pleural effusions, increased on the left, with adjacent airspace opacities which are favored to represent atelectasis.
-pigtail drainage also in place- monitor output
HFrEF/ICMO: [id number]
-Echo 03/28/25: Technically difficult study. Moderate to severely reduced left ventricular function estimated ejection fraction 30 to 35%. LVH. Status post aortic valve replacement. Mild aortic stenosis suspected. Peak gradient 17 mmHg and mean
gradient 8 mmHg. Echodensity in the descending thoracic aorta consistent with known history of aortic dissection. Pleural effusion.
-Continue IV Bumex as tolerated, which requires intensive monitoring.
-continue SGLT2I. He is on metoprolol tartrate (rather than succinate) since he is getting meds crushed to tube. Other GDMT limited by BP.
Aortic dissection:
-s/p CT surgery 03/07/25 with complex post op course as noted. Procedure details as below.
CAD:
-s/p CABG x 4, MV repair, TV repair, MAZE, and EVI exclusion with Dr. Sullivan (02/16/25).
-CABG anatomy has been altered due to compression/ischemia after dissection repair.
-The current anatomy is MAGANA to LAD, SVG from Ao graft to SVG to diagonal, sequential SVG Y-graft from diagonal graft to OM1 to LPL.
-on ASA, statin, BB
Anemia:
-lower than last admit; monitor closely
Atrial fibrillation
-Persistent
-Rate/rhythm control with amiodarone, s/p MAZE with Dr. Sullivan, 02/16/2025.
-CHADS2-Vasc = 5 (CHF, HTN, Age x2, vascular disease)
-Anti-thrombotic therapy with apixaban 5 mg BID, S/P LAAE (#40 AtriClip, SN [id number]) with Dr. Sullivan, 02/16/2025.
Procedures:
CT surgery, 03/07/2025:
Procedure(s) Performed:
1. Ultrasound-guided access using Seldinger technique 2 the right common femoral artery and vein with percutaneous access using a 25 Lao femoral venous cannula
2. Redo sternotomy with extensive adhesiolysis (Modifier 22 for additional dissection time of 1 hour)
3. Direct aortic cannulation using ultrasound and Seldinger technique with a SAJAN guidance verifying true lumen access
4. Moderate hypothermic circulatory arrest with antegrade cerebral perfusion
5. Hemiarch ascending aortic replacement
6. Aortic root replacement using a 27 mm valved conduit
7. Ligation of left and right coronary ostia as they were dissected coronary bypass grafting to an acute marginal
8. Relocation of previous vein grafts onto this acute marginal vein graft
9. Placement of temporary atrial ventricular pacing wires
10. Transesophageal echocardiography
11. Temporary chest packing, open chest.
Impella Placement, 03/08/2025:
Procedure(s) Performed:
1. The temporary dressing over top of the open chest was removed
2. Placement of atrial pacing wires
3. Anastomosis of a 10 mm straight tube graft off of the ascending aortic graft, graft to graft anastomosis
4. Graft tunneled to the left supra clavicular region between the strap muscles
5. Placement of a 5.5 direct aortic Impella LVAD
6. Chest closure in usual fashion
TTE, 03/08/2025:
SUMMARY
1. TDS.
2. In limited views, left ventricle appears normal sized with severely reduced systolic function. Left ventricle ejection fraction is 25-30% by visual estimation. Global hypokinesis. S/p Impella 5.5 insertion which appears to be appropriately
placed.
3. In limited views right ventricle appears normal sized with mildly reduced systolic function. Right ventricle does appear to expand in diastole.
4. Limited valvular interrogation.
5. Compared to SAJAN earlier in day, overall, no significant change.
Bedside Rexploration, 03/08/2025:
Procedure: Emergency bedside reopening of chest and the loculation of clot ligation of IAN which was the bleeding source, repacking with 1 vaginal pack and Kerlix and replacement of new chest tubes
CT surgery re-exploration, 03/09/2025 (morning):
PROCEDURES:
1. Mediastinal reexploration/irrigation and removal of packing.
2. Repositioning of proximal course of greater saphenous vein graft
with several 6-0 Prolene sutures (placed/subsequently removed).
3. Placement of 6 mm ringed PTFE graft around proximal segment of
greater saphenous vein graft .
4. Replacement of new mediastinal packing (1 vaginal pack and
partial roll of Kerlix; syringe based sternal separation).
5. Reexploration with replacement of new open chest dressing.
CT surgery re-exploration, 03/09/2025 (afternoon):
Procedure(s) Performed:
1. Reopening of temporary chest coverage.
2. Ligation of IAN.
3. Coronary artery bypass grafting x 1 (Aortic Graft to RSVG to RSVG - T-graft).
4. Open vein harvest of the left thigh.
5. Transesophageal echocardiography.
6. Repacking of chest and placement of temporary dressing.
Data Reviewed
-
EKG: Tracing Personally Visualized and interpreted
Radiology: Report Reviewed by me (CXR: Interval removal of the nasoenteric and endotracheal tubes. Stable appearance of the right basilar chest tube. Small bilateral pleural effusions, increased on the left, with adjacent airspace opacities which
are favored to represent atelectasis.)
Medical Tests (Nuc Med, Echo etc): Report Reviewed by me (03/28/25: Moderate to severely reduced left ventricular function estimated ejection fraction 30 to 35%. 3. LVH. 4. Mild aortic stenosis suspected. Peak gradient 17 mmHg and mean gradient 8
mmHg. 5. Echodensity in the descending thoracic aorta consistent)
Labs: Labs Reviewed by me
--- NOTE | 2025-04-04 11:20 | PTCARENOTE ---
Pt received from manager shift RN. Pt is Ox3 and somewhat forgetful, his speech is whispered after extubation yesterday. MCKEE x4 but very weak, he can hardly lift his elbows off of the bed. Afib on tele at a rate of 70, BP 90's/60's. +4 edema of the L
arm, +3 of the R arm, BLLE +2. L arm is draining serous fluid from a blister just distal to his antecubital. His fingers are dusky on each hand with + pulses. Currently on 4L NC with a 96% sat, pox is difficult to assess due to poor circulation. R
lateral chest tube in place, breath sounds diminished in the bases. Thermister adams in place draining clear yellow urine. 2mg bumex given this AM and pt diuresed ~500mls over the next two hours. PEG tube in place, due to start tube feeds today.
Cierra lifted into the chair, pt tolerating well. Call bustillos within reach.
[2025-04-04] MEDS: NSS IV (13:14)
[2025-04-04 14:59] LABS: Hematocrit 27.0 % (39.0-52.0); Hemoglobin 8.0 g/dL (13.0-18.0); Mean Corp Hgb Conc. 29.6 g/dL (33.0-37.0); Mean Corpuscular Volume 106.7 fL (80.0-94.0); Platelet Count 243 10^3/uL (130-400); Red Cell Dist. Width 21.2 % (11.5-14.5)
[2025-04-04 15:14] LABS: Blood Urea Nitrogen 37 mg/dl (9-20); Calcium 7.2 mg/dl (8.4-10.2); Carbon Dioxide 35 mmol/L (22-30); Chloride 101 mmol/L (98-107); Estimated Creatinine Clearance 64 ml/min; Glucose 71 mg/dl (70-99); Potassium 2.6 mmol/L (3.5-5.1); Sodium 137 mmol/L (135-145); eGFR > 60.00
--- NOTE | 2025-04-04 15:22 | CM ---
Reviewed chart. Met with Mr. Law and his son to review discharge plans. Mr. Law was transferred to [place] at [facility] in 04/03/25. He was sent to [facility] on his last admission. Mr. Law resides with his spouse in a two story home with
one step to enter. He has a full bathroom on each level. Prior to his surgeries he was ambulating with a single point cane. Will need to see his current functional level to see if he will have any skilled care needs. If he needs some level of
inpatient rehab. he will need a pre-cert with his insurance. Medical work-up in progress. The discharge plan is undetermined at this time.
[2025-04-04] MEDS: TYLENOL 650 MG TUBE (15:25)
[2025-04-04] MEDS: KCL ELIXIR 40 MEQ PO (16:10)
[2025-04-04] MEDS: CALCIUM GLUCONATE 100 IV (16:11)
[2025-04-04] MEDS: KCL 270 MEQ IV ×2 (16:11→22:23)
[2025-04-04] MEDS: LIPITOR 40 MG TUBE (17:46)
--- NOTE | 2025-04-04 19:00 | PTCARENOTE ---
report received from previous RN, walking rounds done. pt in bed, AAOx4 but forgetful at times. his speech is whispered s/p extubation. MCKEE but is very weak. Afib on monitor, HR 80s-90s. SBP BP 90s. edema noted throughout all extremities. weeping
noted from LUE. distal pulses present by doppler. B/L breath sounds present. POX 100% on 2LNC. R lateral CT in place to -20cm wall suction, drainage WNL, no air leak present. adams catheter in place, draining CYU. PEG tube in place, TF infusing per
orders. turning/repositioning pt Q2H and as needed. see worklist for full assessment, VS, and interventions.
--- NOTE | 2025-04-04 19:00 | PTCARENOTE ---
Cierra lifted back into bed. Large clot noted in R pigtail tubing, LEHR OPERATOR in to assess. CT output this shift 23mls. CXR ordered in AM. Assessment otherwise unchanged. Call bustillos within reach, pt makes needs known.
[2025-04-04 22:17] LABS: Blood Urea Nitrogen 37 mg/dl (9-20); Calcium 7.5 mg/dl (8.4-10.2); Carbon Dioxide 35 mmol/L (22-30); Chloride 100 mmol/L (98-107); Estimated Creatinine Clearance 64 ml/min; Glucose 88 mg/dl (70-99); Potassium 3.4 mmol/L (3.5-5.1); Sodium 135 mmol/L (135-145); eGFR > 60.00
--- NOTE | 2025-04-04 23:00 | PTCARENOTE ---
no changes in assessment. pt sleeping in bed. Afib on monitor, HR 60s-70s. SBP BP 90s-100s. POX 100% on 2LNC. CT output minimal. UO adequate. TF maintained per orders. turning/repositioning pt Q2H and as needed. potassium and calcium repleted per
orders.
[2025-04-05] VITALS (34 sets, daily range): BP systolic 69–128; BP diastolic 50–87; PULSE 62–63; O2SAT 98; BMI 26.1
[2025-04-05] MEDS: CALCIUM GLUCONATE 100 IV (00:25)
--- NOTE | 2025-04-05 03:00 | PTCARENOTE ---
no changes in assessment. pt resting in bed. Afib on monitor, HR 60s. SBP BP 90s. POX 96-100% on 2LNC. CT output minimal. UO adequate. TF maintained per orders. turning/repositioning pt Q2H and as needed.
[2025-04-05 05:42] LABS: Hematocrit 27.9 % (39.0-52.0); Hemoglobin 8.4 g/dL (13.0-18.0); Mean Corp Hgb Conc. 30.1 g/dL (33.0-37.0); Mean Corpuscular Volume 108.1 fL (80.0-94.0); Platelet Count 264 10^3/uL (130-400); Red Cell Dist. Width 21.4 % (11.5-14.5)
[2025-04-05 06:06] LABS: ALT (SGPT) 39 U/L (0-50); AST (SGOT) 39 U/L (17-59); Albumin 1.9 g/dl (3.5-5.0); Alkaline Phosphatase 191 U/L (38-126); Blood Urea Nitrogen 36 mg/dl (9-20); Calcium 8.2 mg/dl (8.4-10.2); Carbon Dioxide 36 mmol/L (22-30); Chloride 101 mmol/L (98-107); Estimated Creatinine Clearance 70 ml/min; Glucose 106 mg/dl (70-99); Potassium 4.1 mmol/L (3.5-5.1); Sodium 135 mmol/L (135-145); Total Protein 4.7 g/dl (6.3-8.2); eGFR > 60.00
[2025-04-05] MEDS: SYNTHROID 150 MCG TUBE (06:12)
[2025-04-05] MEDS: PACERONE 200 MG TUBE (06:12)
--- NOTE | 2025-04-05 07:48 | W.PN.CD ---
Today's Communication / Plan
-
on 2 liters
upper and lower ext edema
continue diuresis . Monitor BP and labs
Impression / Plan
-
Respiratory failure:
-diagnosis is threat to life
-now extubated and on 2L NC
-getting diuresed as tolerated with [id number] HFpEF (weight up, effusions, LE edema). D/c weight 85.2, 89.2. down to 87
-CXR: Small bilateral pleural effusions, increased on the left, with adjacent airspace opacities which are favored to represent atelectasis.
-pigtail drainage also in place- monitor output
HFrEF/ICMO: [id number]
-Echo 03/28/25: Technically difficult study. Moderate to severely reduced left ventricular function estimated ejection fraction 30 to 35%. LVH. Status post aortic valve replacement. Mild aortic stenosis suspected. Peak gradient 17 mmHg and mean
gradient 8 mmHg. Echodensity in the descending thoracic aorta consistent with known history of aortic dissection. Pleural effusion.
-IV diuretic as BP tolerates
-continue SGLT2I. He is on metoprolol tartrate (rather than succinate) since he is getting meds crushed to tube. Other GDMT limited by BP.
Aortic dissection:
-s/p CT surgery 03/07/25 with complex post op course as noted. Procedure details as below.
CAD:
-s/p CABG x 4, MV repair, TV repair, MAZE, and EVI exclusion with Dr. Sullivan (02/16/25).
-CABG anatomy has been altered due to compression/ischemia after dissection repair.
-The current anatomy is MAGANA to LAD, SVG from Ao graft to SVG to diagonal, sequential SVG Y-graft from diagonal graft to OM1 to LPL.
-on ASA, statin, BB
Anemia:
- monitor closely
Atrial fibrillation
-Persistent
-Rate/rhythm control with amiodarone, s/p MAZE with Dr. Sullivan, 02/16/2025.
-CHADS2-Vasc = 5 (CHF, HTN, Age x2, vascular disease)
-Anti-thrombotic therapy with apixaban 5 mg BID, S/P LAAE (#40 AtriClip, SN [id number]) with Dr. Sullivan, 02/16/2025.
Procedures:
CT surgery, 03/07/2025:
Procedure(s) Performed:
1. Ultrasound-guided access using Seldinger technique 2 the right common femoral artery and vein with percutaneous access using a 25 Icelandic femoral venous cannula
2. Redo sternotomy with extensive adhesiolysis (Modifier 22 for additional dissection time of 1 hour)
3. Direct aortic cannulation using ultrasound and Seldinger technique with a SAJAN guidance verifying true lumen access
4. Moderate hypothermic circulatory arrest with antegrade cerebral perfusion
5. Hemiarch ascending aortic replacement
6. Aortic root replacement using a 27 mm valved conduit
7. Ligation of left and right coronary ostia as they were dissected coronary bypass grafting to an acute marginal
8. Relocation of previous vein grafts onto this acute marginal vein graft
9. Placement of temporary atrial ventricular pacing wires
10. Transesophageal echocardiography
11. Temporary chest packing, open chest.
Impella Placement, 03/08/2025:
Procedure(s) Performed:
1. The temporary dressing over top of the open chest was removed
2. Placement of atrial pacing wires
3. Anastomosis of a 10 mm straight tube graft off of the ascending aortic graft, graft to graft anastomosis
4. Graft tunneled to the left supra clavicular region between the strap muscles
5. Placement of a 5.5 direct aortic Impella LVAD
6. Chest closure in usual fashion
TTE, 03/08/2025:
SUMMARY
1. TDS.
2. In limited views, left ventricle appears normal sized with severely reduced systolic function. Left ventricle ejection fraction is 25-30% by visual estimation. Global hypokinesis. S/p Impella 5.5 insertion which appears to be appropriately
placed.
3. In limited views right ventricle appears normal sized with mildly reduced systolic function. Right ventricle does appear to expand in diastole.
4. Limited valvular interrogation.
5. Compared to SAJAN earlier in day, overall, no significant change.
Bedside Rexploration, 03/08/2025:
Procedure: Emergency bedside reopening of chest and the loculation of clot ligation of IAN which was the bleeding source, repacking with 1 vaginal pack and Kerlix and replacement of new chest tubes
CT surgery re-exploration, 03/09/2025 (morning):
PROCEDURES:
1. Mediastinal reexploration/irrigation and removal of packing.
2. Repositioning of proximal course of greater saphenous vein graft
with several 6-0 Prolene sutures (placed/subsequently removed).
3. Placement of 6 mm ringed PTFE graft around proximal segment of
greater saphenous vein graft .
4. Replacement of new mediastinal packing (1 vaginal pack and
partial roll of Kerlix; syringe based sternal separation).
5. Reexploration with replacement of new open chest dressing.
CT surgery re-exploration, 03/09/2025 (afternoon):
Procedure(s) Performed:
1. Reopening of temporary chest coverage.
2. Ligation of IAN.
3. Coronary artery bypass grafting x 1 (Aortic Graft to RSVG to RSVG - T-graft).
4. Open vein harvest of the left thigh.
5. Transesophageal echocardiography.
6. Repacking of chest and placement of temporary dressing.
Physical Exam
Vital Signs/Labs
Vital Signs
Temp Pulse Resp BP Pulse Ox
98.3 F 61 20 98/61 92
04/05/25 03:00 04/05/25 07:09 04/05/25 07:09 04/05/25 07:09 04/05/25 06:00
04/04/25 04/05/25 04/06/25
06:59 06:59 06:59
Actual Weight 89.2 kg 87.3 kg
04/05/25 05:23
04/05/25 05:23
PT 17.1 Sec (11.4-14.6) H 04/03/25 14:06
INR 1.36 04/03/25 14:06
APTT 37.3 Sec (23.4-35.0) H 04/03/25 14:06
Magnesium 2.1 mg/dl (1.6-2.3) 04/03/25 14:06
Triglycerides 88 mg/dl (10-149) 04/03/25 14:06
Physical Exam
Constitutional: No acute distress
EENT: Anicteric
Cardiovascular: Rhythm/rate is irregular
Respiratory: Wheeze Absent and Rhonchi Absent
GI: Soft and Non tender
Other: Other
bilat upper ext and lower ext edema
Data Reviewed
-
Date of Service: April 05, 2025
Medical Decision Making: Reviewed Test Results
X-Ray/CT/US/MRI/NUC/PET: Report Reviewed by me
Medical Tests (PFT, Pathology etc): Report Reviewed by me
Labs: Labs Reviewed by me
[2025-04-05] MEDS: LOW STRENGTH ASPIRIN 81 MG TUBE (07:52)
[2025-04-05] MEDS: PREVACID 30 MG TUBE (07:52)
[2025-04-05] MEDS: FARXIGA 10 MG TUBE (07:52)
[2025-04-05] MEDS: ELIQUIS 5 MG TUBE ×2 (07:53→19:17)
[2025-04-05] MEDS: LOPRESSOR 12.5 MG TUBE ×2 (07:53→19:17)
[2025-04-05] MEDS: TYLENOL ORAL SOLUTION 650 MG TUBE (07:54)
[2025-04-05] MEDS: MAXIPIME 1000 MG IV ×3 (07:56→19:17)
[2025-04-05] MEDS: STERILE WATER FOR INJECTION 10 ML IV ×3 (07:56→19:17)
--- NOTE | 2025-04-05 08:34 | W.PN.CT ---
Today's Communication / Plan
-
-no issues overnight, no drips
-sitting up in a chair, A&O
-R pleural CT output 0 in 12/24 hrs. No output or movement in the CT with milking
-IRAD consult today to eval b/l effusions, increased effusion on L
-elevated wbc, Tm 99.2, ? opacity in R mid lung- started on Cefepime
-on Midodrine 10 tid
-diuresing with Bumex 2 mg IV. UO 625/2340 in 1224 hrs
-encourage IS, OOB
Assessment / Plan
-
-s/p CABG
-s/p ascending aorta replacement
-Acute respiratory failure with hypercapnia
-right pleural effusion
-cardiogenic shock requiring pressors
-IRON (creatinine on amission 1.3)
-hypertension now with hypotension due to shock
Discussed patient care with: Nursing and Care Team
Subjective
Procedure
Transferred from OSH where he underwent right pigtail placement and needed to be intubated due to hypercarbic respiratory failure.
-
Date of Service: April 05, 2025
Objective Data
-
Lab Results
04/05/25 05:23
04/05/25 05:23
PT 17.1 Sec (11.4-14.6) H 04/03/25 14:06
INR 1.36 04/03/25 14:06
APTT 37.3 Sec (23.4-35.0) H 04/03/25 14:06
Vital Signs
Vital Signs
Temp Pulse Resp BP Pulse Ox
98 F 61 20 98/61 88
04/05/25 07:00 04/05/25 07:09 04/05/25 07:09 04/05/25 07:09 04/05/25 07:55
CT Intake/Output/Weight
04/04/25 04/05/25 04/05/25
18:59 06:59 18:59
Intake Total 1010 / 2210 1200 / 2210
Output Total 1738 / 2363 625 / 2363
Balance -728 / -153 575 / -153
SaO2: 88
Physical Exam
-
General: Awake and AOx3
Cardiovascular: Regular rate & rhythm and Irregular rate & rhythm
Respiratory: Decreased Breath Sounds
Sternum: Stable
Incision: Clean, Dry and Intact
Extremities: Edema +2
Data Reviewed
-
Lab Results: Results Reviewed
Medications: Active Meds Reviewed
Chest X-Ray: Report Reviewed and Image Reviewed
ECG: Report Reviewed and Image Reviewed
[2025-04-05] MEDS: BUMEX 2 MG IV ×2 (08:35→20:25)
--- NOTE | 2025-04-05 11:37 | CM ---
Reviewed chart. Met with Mr. Law and his son to review discharge plans. Reviewed acute rehab. at [place] at [place]. Aske to check if [facility] C[facility] at [facility] [place]. [place] liaison states they do not do Pleurx
catheter at [facility] at [place] but they do at [facility] at [place]. Updated the medical team. Telephone call to [facility] Liaison to make the referral. Referral sent. Will need to pre-cert with his insurance for acute rehab. . if
approved for admission. Medical work-up in progress. The discharge plan is to go to acute Re[facility] at [facility] at [place] if approved for admission and by his insurance when medically stable.
--- NOTE | 2025-04-05 13:41 | PTOTSP ---
Dysphagia Evaluation
Patient has acute on chronic dysphagia risk factors (i.e., recent extubation 04/03 with subsequent aphonia to dysphonia/breathy vocal quality concerning for changes to laryngeal function; history of known dysphagia s/p multiple cardiac surgeries
during recent admission). Recent video swallow study 04/07/2025 with mild-moderate oral and mild pharyngeal dysphagia with silent aspiration of thin liquids x1.
Recommend use of PEG in place and video swallow study prior to resumption of an oral diet given elevated risk for silent aspiration and elevated risk for respiratory decompensation in case of aspiration.
Recommend:
1. NPO with use of non-oral means in place (PEG)
2. Aspiration Risk Hydration Protocol - ice chips sparingly after oral care
3. Medications via PEG
4. Video swallow study to r/o silent aspiration prior to resuming an oral diet
--- NOTE | 2025-04-05 14:45 | PTOTSP ---
Speech Language Pathology
VIDEOFLUOROSCOPIC SWALLOWING EXAMINATION (VSE) completed. Improvement noted since last VSE. Pt with mild-mod oral and mild pharyngeal dysphagia. Trace to mild pharyngeal residue noted. Silent aspiration noted with large straw sip of thin liquids
with supraglottic penetration with straw sip of mildly thick liquids. No penetration/aspiration noted with cup sips of thin or mildly thick liquids or with any trials of moderately thick, puree, or regular solids.
Recommend:
(1) Initiate IDDSI Level 6 (soft/bite-sized) and thin liquids
(2) Aspiration precautions: SINGLE CUP SIPS ONLY (NO STRAWS), full supervision to ensure slow rate and single sips, sit upright
(3) Meds whole in puree
(4) [employer] to continue to follow
[2025-04-05] MEDS: LIPITOR 40 MG TUBE (18:22)
--- NOTE | 2025-04-05 18:45 | PTCARENOTE ---
Pt ate 50% of his dinner, was mohinder'd back to bed and had a large BM in the bedpan. He remains on 1L N[place], unable to wean further at this time. Male purewick catheter in place to monitor UOP. Call bustillos within reach. Pt makes needs known.
--- NOTE | 2025-04-05 19:00 | PTCARENOTE ---
report received from previous RN, walking rounds done. pt in bed, AAOx4 but forgetful at times. his speech is whispered s/p extubation. MCKEE but is very weak. Afib on monitor, HR 80s-90s. SBP BP 110s. edema noted throughout all extremities. weeping
noted from LUE. distal pulses present by doppler. B/L breath sounds present. POX 96% on 4LNC. R lateral CT in place to -20cm wall suction, ,minimal drainage noted, no air leak present. external male catheter in place. PEG tube in place and clamped.
turning/repositioning pt Q2H and as needed. see worklist for full assessment, VS, and interventions.
--- NOTE | 2025-04-05 21:00 | PTCARENOTE ---
pt incontinent large BM. pt c/o unable to urinate. bladder scan shows 450cc - straight cath done, 500cc CYU drained.
[2025-04-05] MEDS: FLOMAX 0.4 MG PO (21:25)
--- NOTE | 2025-04-05 23:00 | PTCARENOTE ---
no changes in assessment. pt sleeping in bed. Afib on monitor, HR 80s. SBP BP 110s-120s. POX 96% on 4LNC. no CT output noted. turning/repositioning pt Q2H and as needed. pt resting between care.
[2025-04-05 23:47] LABS: Blood Urea Nitrogen 38 mg/dl (9-20); Calcium 8.1 mg/dl (8.4-10.2); Carbon Dioxide 37 mmol/L (22-30); Chloride 101 mmol/L (98-107); Estimated Creatinine Clearance 78 ml/min; Glucose 88 mg/dl (70-99); Magnesium 1.9 mg/dl (1.6-2.3); Potassium 2.9 mmol/L (3.5-5.1); Sodium 137 mmol/L (135-145); eGFR > 60.00
[2025-04-06] VITALS (24 sets, daily range): BP systolic 88–122; BP diastolic 65–103; PULSE 89; BMI 25.9
[2025-04-06] MEDS: MAGNESIUM SULFATE 50 IV (00:15)
[2025-04-06] MEDS: KCL 270 MEQ IV ×2 (00:16→05:19)
[2025-04-06] MEDS: TYLENOL ORAL SOLUTION 650 MG TUBE (00:17)
[2025-04-06] MEDS: KLOR-CON 40 MEQ PO (00:17)
[2025-04-06] MEDS: MAXIPIME 1000 MG IV ×4 (02:25→20:06)
[2025-04-06] MEDS: STERILE WATER FOR INJECTION 10 ML IV ×4 (02:25→20:06)
--- NOTE | 2025-04-06 03:00 | PTCARENOTE ---
no changes in assessment. pt resting in bed. Afib on monitor, HR 80s. SBP BP 100s. POX 96% on 4LNC. no CT output noted. turning/repositioning pt Q2H and as needed. KCL and Mag repleted per orders. PRN Tylenol given as requested by patient. pt
resting between care.
[2025-04-06 03:56] LABS: Hematocrit 26.7 % (39.0-52.0); Hemoglobin 8.1 g/dL (13.0-18.0); Mean Corp Hgb Conc. 30.3 g/dL (33.0-37.0); Mean Corpuscular Volume 107.2 fL (80.0-94.0); Platelet Count 279 10^3/uL (130-400); Red Cell Dist. Width 21.3 % (11.5-14.5)
[2025-04-06 04:26] LABS: Blood Urea Nitrogen 37 mg/dl (9-20); Calcium 8.0 mg/dl (8.4-10.2); Chloride 102 mmol/L (98-107); Estimated Creatinine Clearance 70 ml/min; Glucose 88 mg/dl (70-99); Magnesium 2.2 mg/dl (1.6-2.3); Potassium 3.3 mmol/L (3.5-5.1); Sodium 141 mmol/L (135-145); Triglycerides 67 mg/dl (10-149); eGFR > 60.00
[2025-04-06 04:34] LABS: Carbon Dioxide 36 mmol/L (22-30)
--- NOTE | 2025-04-06 05:12 | W.PN.CT ---
Today's Communication / Plan
-
-pod #31
-b/l pleural effusions, L>R. IR wasn't able to tap L effusion 04/05. R CT dcd 04/06 (not draining)
-Buenrostro placed 04/06 for urinary retention. Abnormal UA, Urine cx pending
-Leukocytosis, afebrile - Cefepime started 04/05
-diuresing with Bumex 2mg iv bid with 20 KCL bid. UO 1050/3000 in 12/24 hrs
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
-Hg 6.8 and recheck is 7.[address] Sullivan, gave 1 pRBC
-nocturnal feeds d/t poor appetite. Nutrition eval pending
-encourage IS, OOB
-continue PT/OT
-appreciate everyone's input
Assessment / Plan
-
Impression:
-Aortic dissection, s/p ascending aorta replacement and CABG x 03/07/25, pod #31
-Acute respiratory failure with hypercapnia
-Acute systolic CHF
-EF 25-30% on TTE 03/08/25, improved to 30-35%
-b/l pleural effusions, increased on L- R CT dcd 04/06 (not draining)
-Cardiogenic shock requiring pressors
-IRON (creatinine on admission 1.3)- resolved
-hypertension now with hypotension due to shock
-Leukocytosis - Cefepime started 04/05
-Hypokalemia- repleted
-Urinary retention - s/p Buenrostro placement on 04/06
-Confusion/sundowning
-[place] shaped opacity in the right midlung likely represents a pseudotumor with accompanying small right pleural effusion.
-Postop anemia 7.6- got 1 pRBC on 04/07
Echo 03/28/25:
1. Technically difficult study.
2. Moderate to severely reduced left ventricular function estimated ejection fraction 30 to 35%.
3. LVH.
4. Mild aortic stenosis suspected. Peak gradient 17 mmHg and mean gradient 8 mmHg.
5. Echodensity in the descending thoracic aorta consistent with known history of aortic dissection.
6. Pleural effusion.
7. Compared to 03/08 25. [id number] study was technically limited. Previous study Impella was presetn and estimated EF 25-30%.
Discussed patient care with: Nursing and Care Team
Subjective
Procedure
Transferred from OSH where he underwent right pigtail placement and needed to be intubated due to hypercarbic respiratory failure.
-
Date of Service: April 06, 2025
Objective Data
-
Lab Results
04/06/25 03:34
04/06/25 03:34
PT 17.1 Sec (11.4-14.6) H 04/03/25 14:06
INR 1.36 04/03/25 14:06
APTT 37.3 Sec (23.4-35.0) H 04/03/25 14:06
Vital Signs
Vital Signs
Temp Pulse Resp BP Pulse Ox
98.1 F 85 16 102/71 93
04/06/25 04:00 04/06/25 04:00 04/06/25 04:00 04/06/25 03:00 04/06/25 04:00
CT Intake/Output/Weight
04/05/25 04/05/25 04/06/25
06:59 18:59 06:59
Intake Total 1200 / 2275 1055 / 1355 300 / 1355
Output Total 625 / 2413 1300 / 2050 750 / 2050
Balance 575 / -138 -245 / -695 -450 / -695
SaO2: 93
Physical Exam
-
General: Awake and AOx3
Cardiovascular: Regular rate & rhythm and Irregular rate & rhythm
Respiratory: Decreased Breath Sounds
Sternum: Stable
Incision: Clean, Dry and Intact
Extremities: Edema +2
Data Reviewed
-
Lab Results: Results Reviewed
Medications: Active Meds Reviewed
Chest X-Ray: Report Reviewed and Image Reviewed
ECG: Report Reviewed and Image Reviewed
[2025-04-06] MEDS: SYNTHROID 150 MCG TUBE (05:20)
[2025-04-06] MEDS: PACERONE 200 MG TUBE (06:42)
--- NOTE | 2025-04-06 06:51 | DOWNTIME ---
There was a [employer] Downtime on 04/06/2025 from 0100 to 04/06/2025 at 0255. Downtime documentation of patient's care, including medication administrations, has been reconciled in the electronic record per guidelines. Refer to the
patient's paper chart under the miscellaneous tab to see printed paper medication records and downtime forms.
[2025-04-06] MEDS: LOPRESSOR 12.5 MG TUBE (07:53)
[2025-04-06] MEDS: BUMEX 2 MG IV ×2 (07:53→16:33)
[2025-04-06] MEDS: FARXIGA 10 MG TUBE (07:53)
[2025-04-06] MEDS: PREVACID 30 MG TUBE (07:54)
[2025-04-06] MEDS: ELIQUIS 5 MG TUBE (07:54)
[2025-04-06] MEDS: KLOR-CON 20 MEQ TUBE (07:54)
[2025-04-06] MEDS: LOW STRENGTH ASPIRIN 81 MG TUBE (07:54)
--- NOTE | 2025-04-06 08:45 | PTCARENOTE ---
Assumed care of patient at 0700. Pt is awake, alert, and oriented. Pt is forgetful at times, however remains oriented. No complaints of pain. Pt remains in Afib with HR 92. BP 98/67 MAP 78. Pulse oximetry 95% on 2L nasal cannula. Pt continues to
utilize IS, able to achieve 500. Right pleural chest tube in place to -20 suction, no sign of air leak or crepitus. Pt with poor appetite. Tolerated pills in applesauce. PEG tube remains in place, not receiving TF at this time. PEG able to flush
easily without resistance. Male purewick in place, pt voiding yellow urine. Pt with old surgical sites, approximated. Pt currently OOB in chair with call bustillos within reach.
--- NOTE | 2025-04-06 09:45 | WOUNDNOTE ---
L CHEST (ANTERIOR) (old chest tube site)
--- NOTE | 2025-04-06 09:45 | WOUNDNOTE ---
[facility] RN note: Patient seen for HAPI report to stage 2 sacral pressure injury. Sacral/buttocks/heide area with MASD from frequent soft bowel movements. Patient admitted with L anterior chest old chest tube site wound with local erythema, L flank dried
blister, scabbed old blisters L anterior groin/thigh area. Scattered ecchymotic areas on legs, R lower abdomen/groin. Skin on heels intact. Scabbed area on sternal incision and some small dry scabs from old chest tube sites on lower anterior chest.
Leg incisions dry/scabbed/approximated. Patient has a feeding tube. Patient is on a [employer] air bed and has an air chair cushion. Sacral shaped silicone border foam applied to sacrum. Silicone border foam applied to L flank scabbed dried
blister. Protective foam dressing applied to heels by SEBASTIAN Ovalle. Patient turned to L semi side lying position with help from SEBASTIAN Ovalle. Heels off bed with pillow. t/c SPD and ordered a bariatric air chair cushion. Discussed with SEBASTIAN Ovalle. Reviewed
skin/wound with CT VIMAL Fountain who approved local wound care. Care plan to be updated. Consult as needed.
--- NOTE | 2025-04-06 09:45 | WOUNDNOTE ---
L GROIN/THIGH (ANTERIOR UPPER)
--- NOTE | 2025-04-06 09:45 | WOUNDNOTE ---
[facility] RN note: Patient seen for HAPI report to stage 2 sacral pressure injury. Sacral/buttocks/heide area with MASD from frequent soft bowel movements. Patient admitted with L anterior chest old chest tube site wound with local erythema, L flank dried
blister, scabbed old blisters L anterior groin/thigh area. Scattered ecchymotic areas on legs, R lower abdomen/groin. Skin on heels intact. Scabbed area on sternal incision and some small dry scabs from old chest tube sites on lower anterior chest.
Leg incisions dry/scabbed/approximated. Patient has a feeding tube. Patient is on a [employer] air bed and has an air chair cushion. Sacral shaped silicone border foam applied to sacrum. Silicone border foam applied to L flank scabbed dried
blister. Protective foam dressing applied to heels by SEBASTIAN Ovalle. Patient turned to L semi side lying position with help from SEBASTIAN Ovalle. Heels off bed with pillow. t/c SPD and ordered a bariatric air chair cushion. Discussed with SEBASTIAN Ovalle. Reviewed
skin/wound with CT VIMAL Sands who approved local wound care. Care plan to be updated. Consult as needed.
--- NOTE | 2025-04-06 11:24 | CM ---
Chart reviewed. Patient was recently discharge from [facility] to [facility]. Prior to that patient was independent of ADLS, lives with his in a [address] [facility], ambulated with a SPC. Plan is for the patient to go to [facility]. Patient
will need insurance authorization along with PM+R when medically stable for discharge. CM to follow
--- NOTE | 2025-04-06 11:44 | PTCARENOTE ---
Pt reporting to feel bladder discomfort. Bladder scanned for 740mL. Spoke with CT URSZULA, Tere. Straight cath done for 700mL. Pt remains Afib with HR 80's. BP 122/77 MAP 89. Pulse oximetry 95% on 2L nasal cannula.
--- NOTE | 2025-04-06 12:55 | PTCARENOTE ---
Assumed care of pt from previous RN. AAOx3 but forgetful at times. NSR on tele, HRs 90s. SpO2 96% on 2L. VSS. R pleural CT to wall suction at -20, dressing CDI. No air leak or crepitus noted. PEG tube in place. Pt tolerating ensure but has poor
appetite. Male purewick in place, continuing bladder scan/straight cath protocol. Cierra lift used to transfer pt from bed to chair with PT/OT. Assessment documented. Pt OOB in chair, call bustillos in reach.
[2025-04-06 14:16] LABS: Blood Urea Nitrogen 37 mg/dl (9-20); Calcium 8.4 mg/dl (8.4-10.2); Carbon Dioxide 35 mmol/L (22-30); Chloride 102 mmol/L (98-107); Estimated Creatinine Clearance 70 ml/min; Glucose 140 mg/dl (70-99); Potassium 3.8 mmol/L (3.5-5.1); Sodium 138 mmol/L (135-145); eGFR > 60.00
--- NOTE | 2025-04-06 15:14 | PTCARENOTE ---
Chest tube pulled by CTNP.
[2025-04-06] MEDS: LIPITOR 40 MG PO (17:23)
[2025-04-06 17:33] LABS: Glucose - Point of Care 114 mg/dl (70-99)
[2025-04-06 18:05] LABS: Venous Blood Gas B.E. 11.4 mmol/L (-4 to +4); Venous Blood Gas O2 Sat % 95.0 %
[2025-04-06 18:11] LABS: Hematocrit 26.7 % (39.0-52.0); Hemoglobin 8.3 g/dL (13.0-18.0); Mean Corp Hgb Conc. 31.1 g/dL (33.0-37.0); Mean Corpuscular Volume 102.7 fL (80.0-94.0); Platelet Count 339 10^3/uL (130-400); Red Cell Dist. Width 21.4 % (11.5-14.5)
--- NOTE | 2025-04-06 18:28 | PTCARENOTE ---
Pt increasingly more confused this evening. Remains pleasant but continues to state 'I need to leave to workout in the morning' & 'I don't understand what you are doing, it doesn't make sense to me'. CTNP aware. Blood sugar 114. VSS. Labs drawn and
sent. UA ordered. Pt remains in bed, call bustillos in reach.
[2025-04-06 18:35] LABS: Blood Urea Nitrogen 38 mg/dl (9-20); Calcium 8.3 mg/dl (8.4-10.2); Carbon Dioxide 36 mmol/L (22-30); Chloride 101 mmol/L (98-107); Estimated Creatinine Clearance 78 ml/min; Glucose 80 mg/dl (70-99); Potassium 3.5 mmol/L (3.5-5.1); Sodium 137 mmol/L (135-145); eGFR > 60.00
[2025-04-06 19:01] LABS: Urine Character Slightly Cloudy (Clear)
[2025-04-06 19:17] LABS: Urine Squamous Cell 0-2 /LPF (Few)
[2025-04-06 19:18] LABS: Urine Red Blood Cell >100 /HPF (0-2); Urine White Cell 26-30 /HPF (0-5)
[2025-04-06] MEDS: LOPRESSOR 12.5 MG PO (20:05)
[2025-04-06] MEDS: ELIQUIS 5 MG PO (20:06)
[2025-04-06] MEDS: KLOR-CON 20 MEQ PO (20:06)
[2025-04-06] MEDS: FLOMAX 0.4 MG PO (21:47)
--- NOTE | 2025-04-06 23:26 | PTCARENOTE ---
Patient received in bed, AAOx3, confused conversation, forgetful. Afib on monitor, afebrile, blood pressure as documented, +2 lower extremity edema. Lungs diminished, pulse ox 97% on 2L. occasional cough noted. Abdomen soft with positive bowel
sounds. PEG tube noted, nocturnal feeds started as ordered. Buenrostro catheter draining yellow urine with sediment. Sternal and leg incisions approximated, scabbed. Left chest dressing intact. Right chest tube site with ABD intact. Sacral dressing
intact. PIV x3 all flushed and patent. Bed alarm engaged. Plan of care discussed, call bustillos within reach
[2025-04-07] VITALS (29 sets, daily range): BP systolic 89–133; BP diastolic 51–88; PULSE 91; BMI 25.7
[2025-04-07] MEDS: STERILE WATER FOR INJECTION 10 ML IV ×4 (01:46→20:17)
[2025-04-07] MEDS: MAXIPIME 1000 MG IV ×4 (01:46→20:17)
--- NOTE | 2025-04-07 05:00 | PTCARENOTE ---
Tube feed turned off per ordered, patient offers no complaints. Labs sent, CXR completed, turned and repositioned.
[2025-04-07] MEDS: SYNTHROID 150 MCG PO (05:02)
[2025-04-07 05:23] LABS: Hematocrit 22.7 % (39.0-52.0); Hemoglobin 6.8 g/dL (13.0-18.0); Mean Corp Hgb Conc. 30.0 g/dL (33.0-37.0); Mean Corpuscular Volume 103.7 fL (80.0-94.0); Platelet Count 353 10^3/uL (130-400); Red Cell Dist. Width 21.2 % (11.5-14.5)
[2025-04-07 05:30] LABS: Blood Urea Nitrogen 38 mg/dl (9-20); Calcium 8.1 mg/dl (8.4-10.2); Carbon Dioxide 38 mmol/L (22-30); Chloride 102 mmol/L (98-107); Estimated Creatinine Clearance 88 ml/min; Glucose 98 mg/dl (70-99); Magnesium 2.0 mg/dl (1.6-2.3); Potassium 3.3 mmol/L (3.5-5.1); Sodium 138 mmol/L (135-145); eGFR > 60.00
[2025-04-07] MEDS: KLOR-CON 40 MEQ PO (06:14)
[2025-04-07 06:24] LABS: Hematocrit 25.1 % (39.0-52.0); Hemoglobin 7.6 g/dL (13.0-18.0)
[2025-04-07] MEDS: ELIQUIS 5 MG PO ×2 (08:31→20:18)
[2025-04-07] MEDS: LOW STRENGTH ASPIRIN 81 MG PO (08:31)
[2025-04-07] MEDS: LOPRESSOR 12.5 MG PO ×2 (08:31→20:17)
[2025-04-07] MEDS: BUMEX 2 MG IV ×2 (08:31→15:36)
[2025-04-07] MEDS: KLOR-CON 20 MEQ PO ×2 (08:31→20:18)
[2025-04-07] MEDS: PREVACID 30 MG PO (08:32)
[2025-04-07] MEDS: FARXIGA 10 MG PO (08:32)
[2025-04-07] MEDS: PACERONE 200 MG PO (08:33)
--- NOTE | 2025-04-07 11:00 | PTCARENOTE ---
Cannot verify accuracy of captured vital signs prior to 1100.
--- NOTE | 2025-04-07 11:35 | CM ---
Chart reviewed. Patient was recently discharge from [facility] to [facility]. Prior to that patient was independent of ADLS, lives with his in a [address] [facility], ambulated with a SPC. Plan is for the patient to go to [facility]. Patient
will need insurance authorization along with PM+R when medically stable for discharge. CM to follow
--- NOTE | 2025-04-07 12:38 | PTCARENOTE ---
Pt AAOx3 confused at times but pleasant, Worked with speech therapy and did well did not advance the current diet, Pt HBG 7.6 so was given 1 unit of blood
--- NOTE | 2025-04-07 14:02 | PTCARENOTE ---
Addendum entered by Gage Coelho RN 04/07/25 14:08:
Buenrostro in place, blood noted around meatus, draining yellow urine with sediment. Hygiene provided.
Original Note:
Assumed care of patient at 1100, received report from RN. Nursing assessment completed and as documented. Patient Ox3 upon assessment and denies pain/needs at this time. Afib on monitors rates 90's, BP soft but WNL. 2L NC in place, sats 96-100%.
Patient tolerated breakfast well. Remains on aspiration precautions, no straws. Tolerated PO medications. PEG in place for nocturnal feeds, dressing changed. Wound care provided - see worklist for documentation. and son at bedside, answered all
questions and support provided. Patient worked with PT. All PIV patent and in place - see worklist. Patient repositioned, call bustillos within reach, bed alarmed, VSS, care on going.
--- NOTE | 2025-04-07 14:18 | CON.MD ---
Consultation - Medical
-
Chief Complaint: Respiratory failure requiring rehab
�
History of Present Illness:�74-year-old male with PMH (as below) presented to [facility] on 03/04/2025 with worsening shortness of breath and edema after (CABG x 4, MV repair, TV repair, MAZE, and EVI exclusion on 02/16/25). Echocardiogram
noting new moderate to severe aortic insufficiency and was diuresed. Found with acute on chronic heart failure with EF 35-40% ischemic cardiomyopathy. Also with NSVT. Found to have a Moses type a aortic dissection on SAJAN. On 03/07/2025 he had
a redo sternotomy with extensive adhesiolysis, hemiarch ascending aortic replacement, aortic root replacement using valved conduit, ligation of the left and right coronary ostia, relocation of previous vein grafts onto the acute marginal vein graft
with temporary chest packing and chest left open. Postoperatively with shock liver, IRON, and lactic acidosis. On 03/08/2025 he had atrial pacing wires placed. Postoperatively with cardiac tamponade with emergent bedside procedure with sternal
wires cut. Blood clots removed. Required CRRT per nephrology. On 03/09/2025 Dr. Jacobs did a mediastinal reexploration and irrigation with removal of packing repositioning of the proximal course of the greater saphenous vein graft. He had
kinking of the single vein graft and had a ligation of the IAN with CABG x 1 left thigh vein harvest. On 03/11 he had an antibiotic solution washout of all surgical sites, endotracheal bronchoscopy with lavage, and closure. On 03/12 he had
another bronchoscopy with sample sent for culture and removal of aortic Impella. He was placed on Vanco and cefepime for gram-negative rods in the sputum. Extubated 03/14/2025. He had a FEES study noting moderate pharyngeal stage dysphagia and
responsive aspiration with ice chips and thin liquids with recommendation for NPO. Found to have Enterobacter pneumonia and continued on cefepime per infectious disease. Developed desaturation and required BiPAP. Required prolonged bumetanide
diuresis. Dobbhoff feeding tube placed 03/16. Antibiotic switched to Cipro on 03/17/2025 through 03/20. He developed hyponatremia and was placed on D5W. Repeat FEES study 03/18/2025 with continue recommendation of n.p.o. He had a left
thoracentesis on 03/22/25 and a PEG tube placed by Dr. Herbert Edwards. He had a right thoracentesis on 03/23/2025. He was discharged to an LTAC on 03/29/2025.
He returned to [facility] on 04/03/2025 with worsening right-sided pleural effusion with plan for thoracentesis. However patient developed altered mental status with acute hypercarbia and required intubation with pigtail placement in the
right hemithorax which liberated over 2000 mL of serous fluid. He was unable to be weaned from mechanical ventilation and pressors and was transferred back to [facility] for further care. He was successfully extubated on 04/04/2025.
Getting tube feeding. Being diuresed for acute heart failure with a large degree of third spacing with an albumin of 2.1. Doing well on 2 L of nasal cannula after extubation. X-ray concerning for opacity in the right midlung and started on
cefepime. Continue with midodrine to help with orthostasis in the setting of diuresis with IV Bumex. He was seen by speech for dysphagia and had a swallow study on 04/05/2025. Had anemia at 6.8 requiring 1 unit of PRBC. IR was not able to tap
the left effusion. Right chest tube was removed on 04/06 with no drainage. Patient found to have urinary retention requiring Buenrostro catheter placement 04/06 with abnormal UA and urine culture pending. Does have leukocytosis but is afebrile. CT
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
Overall he is feeling better. He feels like there is a lot of little things that have been going on that have led to him still being in the hospital. He does not know the specifics. He feels like he has gotten better a little bit over the last
week and will continue to get better. He is able to eat and drink in addition to the tube feedings. He denies any pain concerns at this time.
�
Past Medical History:�A-fib, CAD, HTN, hypercholesterolemia, hypothyroidism, colon adenoma
Procedure History:�(CABG x 4, MV repair, TV repair, MAZE, and EVI exclusion on 02/16/25), appendectomy, neck lipoma excision
Family History:�Mother and father with cancer. Sister with cervical cancer.
�
Social History:�
Functional Level Premorbidly:�Modified independent with occasional single-point cane
Functional Level Currently:�Dependent for toileting and lower extremity self-care. Mod to max assist for bed mobility. Max assist for transfers.
�
Tobacco:�Former�quit 30 years ago
Alcohol:�Rare
Drug use:�Denies�
�
Lives with:�
24-hour assistance available:�Yes
Number of floors:�2
# steps to enter:�1
# steps to second floor: Full flight
Potential First floor set up:�No
Driving:�Yes
Occupation:�Retired
�
�
Allergies:�
Allergy/AdvReac Type Severity Reaction Status Date / Time
No Known Allergies Allergy Verified 02/10/25 11:39
�
Review of Systems:�
Constitutional: (x) abNormal _ fatigue
Eye: (x) Normal _
Ear/Nose/Throat: (x) Normal _
Respiratory: (x) Normal _
Cardiovascular: (x) Normal _
Gastrointestinal: (x) Normal _
Genitourinary: (x) abNormal _urinary retention with Buenrostro catheter.
Musculoskeletal: (x) abNormal _generally week
Integumentary: (x) abNormal _chest incision, leg incisions
Neurologic: (x) Normal _
Psychiatric: (x) Normal _
Endocrine: (x) Normal _
Hematologic/Lymphatic: (x) Normal _
Allergic/Immunologic: (x) Normal _
�
Medications:�
Active Current Visit Medication List
Category Date Time Status
Acetaminophen [Tylenol] Med 04/06/25 14:41 Active
650 mg PO Q4HPRN PRN
Amiodarone [Pacerone] Med 04/07/25 08:00 Active
200 mg PO DAILY
Apixaban [Eliquis] Med 04/06/25 20:00 Active
5 mg PO BID
Aspirin Chewable [Low Strength Aspirin] Med 04/07/25 08:00 Active
81 mg PO DAILY
Atorvastatin [Lipitor] Med 04/06/25 18:00 Active
40 mg PO QPM
Bisacodyl [Dulcolax] Med 04/03/25 13:26 Active
10 mg RECTAL DAILYPRN PRN constipation
Bumetanide [Bumex] Med 04/06/25 08:00 Active
2 mg IV BID@0800,1600
Cefepime HCl [Maxipime] Med 04/05/25 08:00 Active
1,000 mg IV Q6H
Dapagliflozin [Farxiga] Med 04/07/25 08:00 Active
10 mg PO DAILY
Flush (0.9% Sodium Chloride) [Flush (Nss)] Med 04/03/25 14:00 Active
See Dose Instructions IV PER PROTOCOL
Lansoprazole [Prevacid] Med 04/07/25 08:00 Active
30 mg PO DAILY
Levothyroxine [Synthroid] Med 04/07/25 06:00 Active
150 mcg PO DAILY@0600
Metoprolol [Lopressor] Med 04/06/25 20:00 Active
12.5 mg PO BID
Midodrine [ProAmatine] Med 04/06/25 18:00 Active
10 mg PO TID@0800,1300,1800
Potassium Chloride Powder [Klor-Con] Med 04/06/25 20:00 Active
20 meq PO BID
Sterile Water [Sterile Water For Injection] Med 04/05/25 08:00 Active
10 ml IV Q6H
Tamsulosin [Flomax] Med 04/06/25 22:00 Active
0.4 mg PO HS
�
Vitals:�
Temp Pulse Resp BP Pulse Ox
97.7 F 92 12 112/88 100
04/07/25 11:53 04/07/25 14:00 04/07/25 14:00 04/07/25 14:00 04/07/25 13:49
Height 6 ft
Actual Weight 85.8 kg
Body Mass Index (BMI) 25.7
Physical Exam:�
General Appearance/Observation: Well-developed, well-nourished male in no apparent distress.�
Pain/Comfort Assessment: Denies�
Mood/Affect: Appropriate�
�
Integumentary/Operative Site:�sternal incision healing, leg incisions healing well
Eyes: Conjunctiva/Lids: normal��� Pupils: pupils equal round and reactive to light and Accommodation
Ears/Nose/Throat: oral mucosa dry, throat clear.������������ Lips/Teeth/Gums: normal
Neck: No muscle spasm or tenderness�
Cardiovascular: Heart: regular, no murmur�
Pulses: dorsalis pedis 2+ bilaterally�
Respiratory: Respiratory Effort/Chest Expansion: normal������ Auscultation: Clear to auscultation bilaterally
Gastrointestinal: abdomen not tender, no distension, normal abdominal bowel sounds
Genitourinary: Buenrostro�with clear yellow urine
Rectal Exam: Deferred
Extremities:�Edema: mild bilateral LE edema, left UE edema.�Cyanosis: None�Trophic�changes: None
Neurology Exam:
Orientation: Alert, Oriented to self, year, month, [facility], Mihai is president.�
Memory: Impaired, improved from prior
Repetition: Impaired
Comprehension: Impaired
Two step command: Impaired for some commands. Can't figure out how to touch right hand to right shoulder.
Cranial Nerves:
�� CNII:�Pupillary light reflex: Intact���Visual Field: Intact
�� CN III, IV, : Extraocular muscles: Intact�
�� CN V:�Facial Sensation�at�Forehead: Intact,�Maxilla: Intact,�Mandible: Intact
�� CN VII:�Facial movement: Symmetric
�� CN VIII:�Hearing: Normal
�� CN IX/X:�Speech & swallow: Hypophonia,�Position of Uvula: Midline
�� CN XI:�Shoulder shrug: Symmetric
�� CN XII:�Tongue protrusion: Midline
Can read analog clock across the room.
Sensory:
�� Light touch: Intact in bilateral upper and lower extremities
�
Reflexes:
�� Babinski: Down going bilaterally
�� Clonus: None
�� Todd: Negative bilaterally�
Cerebellar: Dysmetria/Ataxia: Impaired, trouble following commnds�
Musculoskeletal: Motor: (Manual muscle scale 0-5)�
Muscle SA EF WE EE FF FA HF KE DF EHL PF
Right� NT >3 4 >3 4 4 1 3 4 4 4
Left NT >3 4 >3 4 4 1 2+ 4 4 4
�
Tone: Normal in all extremities�
Range of Motion: Passively within normal limits in all extremities�
�
Lab Results
Laboratory Data
04/07/25 06:13
04/07/25 04:29
PT 17.1 Sec (11.4-14.6) H 04/03/25 14:06
INR 1.36 04/03/25 14:06
APTT 37.3 Sec (23.4-35.0) H 04/03/25 14:06
Total Bilirubin 0.6 mg/dl (0.2-1.3) 04/05/25 05:23
Direct Bilirubin 0.3 mg/dl (0.0-0.4) 04/03/25 14:06
AST 39 U/L (17-59) 04/05/25 05:23
ALT 39 U/L (0-50) 04/05/25 05:23
Alkaline Phosphatase 191 U/L (38-126) H 04/05/25 05:23
Total Protein 4.7 g/dl (6.3-8.2) L 04/05/25 05:23
Albumin 1.9 g/dl (3.5-5.0) L 04/05/25 05:23
�
Diagnostic Results:�as per HPI�
�
Assessment
74 y/o M PMH (A-fib, CAD, HTN, hypercholesterolemia, hypothyroidism, colon adenoma) with 02/16/2025 CABG x 4, MV repair, TV repair, MAZE, and EVI exclusion with 03/04/2025 moderate to severe aortic insufficiency with acute on chronic heart failure,
Carroll type A aortic dissection s/p 03/07/2025 redo sternotomy with extensive adhesiolysis, hemiarch ascending aortic replacement, aortic root replacement using valved conduit, ligation of the left and right coronary ostia, relocation of previous
vein grafts onto the acute marginal vein graft, cardiac tamponade with emergent surgery, IRON with CRRT, Extubated 03/14/2025, Enterobacter pneumonia, moderate pharyngeal stage dysphagia, 03/22 left thoracentesis, 03/[address] Godinez
Ahmad, and right thoracentesis on 03/23/2025. Transferred to LTAC where he had worsening shortness of breath, large right pleural effusion requiring chest tube drainage complicated by acute respiratory failure with hypercarbia now extubated and
chest tube removed with persistent ADL, ambulatory, and swallow dysfunction.
�
Plan�
PM&R�PT/OT to increase independence with ADLs, improve balance, coordination, endurance, strength, mobility, community reintegration, decreased burden of care on others and family education.�
�
? Right middle lobe PNA: Started on Cefepime. Monitor Leukocytosis
Hypercarbic respiratory failure requiring intubation: Now extubated and doing well on 2 L of O2. Right chest tube removed 04/06. Monitor effusion with removal.
Bilateral pleural effusions: Status post thoracentesis left 03/22 and right 03/23, had chest tube in for large right pleural effusion now discontinued chest tube 04/06 with no significant drainage. Nothing to tap on left per IR. Continue to monitor.
Moderate pharyngeal stage dysphagia: Soft and bite-size with thin liquid diet. Single cup sips only with no straws and full supervision to ensure slow rate and single sips, sitting upright. Meds whole in pur�e.
Hypoalbuminemia: Increase nutritional status. Dietary evaluation. Has calorie count. Getting Osmolite 1.2 at 65 mL an hour between 20:00 and over 05:00.
Postoperative Anemia: Postoperatively had hemoglobin 8 range. Given 1 unit of PRBC 04/04. 04/06 hemoglobin 6.8. Repeat 04/07 hemoglobin 7.6. Ordered 1 unit of PRBCs.
Leukocytosis: Could be from pneumonia or UTI. On cefepime.
? prior Anoxic brain injury: Had Waxing and waning with cognition, poor attention, trouble with understanding commands at times. Much better today, but still some cognitive concerns.
- Avoid sedating medications.
Carroll type A aortic dissection 03/07/25: Redo sternotomy with hemiarch ascending aortic replacement, aortic root replacement using valved conduit, ligation of the left and right coronary ostia, relocation of previous vein grafts onto the acute
marginal vein graft. No acute concerns.
Recent Cardiac tamponade: Resolved with emergent surgery
HTN: Getting metoprolol and Bumex for heart failure. Having hypotension with recent need for pressors now on midodrine 10 mg 3 times daily. monitor closely�
HLD: Statin�
Coronary artery disease: Aspirin, statin, beta-frantz. CABG times 02/16/25
Atrial fibrillation/flutter: Eliquis anticoagulation and rate control with amiodarone and metoprolol.������������������������������������������
Acute CHF: EF 35�40%, beta frantz, Bumex 2 mg IV twice daily. Farxiga monitor fluid status�
Hypothyroidism: levothyroxine�
FEN: potassium supplement with Bumex.
Psych:Monitor mood, medications as needed.� Avoid sedating medications
Skin: monitor for pressure sores/rashes/lesions.�
Pain: acetaminophen as needed.�
Bowel: Monitor bowels on tube feeds. Medications as needed.�
Bladder: Acute urinary retention on Flomax. Requiring Buenrostro catheter with concern for possible UTI awaiting culture and sensitivity. Time void, PVRs, PRN straight cath.�
GI Prophylaxis: Lansoprazole
DVT Prophylaxis: Mechanical and Eliquis
Pulmonary: Incentive spirometry�
Safety: Continue to reinforce assistance with all transfers.�
Code Status:� Full code
Dispo�(date/plan/equipment needs): Home with family care.� Social history reviewed.�
Functional and Medical Goals:�Modified Independent with ADL�s, ambulation, transfers�
Discharge Destination:�Not ready for post acute therapy at this time, anticipate he will need acute rehab once medically stable.� Currently being evaluated for infection, getting a transfusion, getting calorie counts. Hopefully will be ready for
the beginning of next week.
A total of 60 minutes were spent with the patient preparing for the evaluation, obtaining history, performing examination and evaluation, counseling, data review, case management, care coordination, video and sound recorder, and EMR documentation.
�
Thank you for allowing me to care for your patient. Please contact me with any questions or concerns.
Consultation
-
Date/Time Consultation Requested: 04/05/25
Date/Time Consultation Performed: 04/07/25 as discussed with team
Requesting Provider: Dr. Sullivan
Performing Provider: Dr. Spike Blackmon
Reason for Consultation: Rehabilititon placement
[2025-04-07] MEDS: LIPITOR 40 MG PO (17:14)
--- NOTE | 2025-04-07 18:01 | W.PN.CD ---
Today's Communication / Plan
-
continue diuresis, nearing previous dry weight
Impression / Plan
-
Respiratory failure:
-now extubated and on NC
-bilateral pleural effusion L>R, IR unable to tap L effusion 04/05, R chest tube removed 04/06 (not draining)
-getting diuresed as tolerated with [id number] HFpEF (weight up, effusions, LE edema). D/c weight 85.2, 89.2. down to 86
HFrEF/ICMO: [id number]
-Echo 03/28/25: Technically difficult study. Moderate to severely reduced left ventricular function estimated ejection fraction 30 to 35%. LVH. Status post aortic valve replacement. Mild aortic stenosis suspected. Peak gradient 17 mmHg and mean
gradient 8 mmHg. Echodensity in the descending thoracic aorta consistent with known history of aortic dissection. Pleural effusion.
-IV diuretic as BP tolerates, nearing prior dry weight
-continue SGLT2I. He is on metoprolol tartrate (rather than succinate) since he is getting meds crushed to tube. Other GDMT limited by BP.
Aortic dissection:
-s/p CT surgery 03/07/25 with complex post op course as noted. Procedure details as below.
CAD:
-s/p CABG x 4, MV repair, TV repair, MAZE, and EVI exclusion with Dr. Sullivan (02/16/25).
-CABG anatomy has been altered due to compression/ischemia after dissection repair.
-The current anatomy is MAGANA to LAD, SVG from Ao graft to SVG to diagonal, sequential SVG Y-graft from diagonal graft to OM1 to LPL.
-on ASA, statin, BB
Anemia:
- 1U pRBC given today
- monitor closely
Atrial fibrillation
-Persistent
-Rate/rhythm control with amiodarone, s/p MAZE with Dr. Sullivan, 02/16/2025.
-CHADS2-Vasc = 5 (CHF, HTN, Age x2, vascular disease)
-Anti-thrombotic therapy with apixaban 5 mg BID, S/P LAAE (#40 AtriClip, SN [id number]) with Dr. Sullivan, 02/16/2025.
Procedures:
CT surgery, 03/07/2025:
Procedure(s) Performed:
1. Ultrasound-guided access using Seldinger technique 2 the right common femoral artery and vein with percutaneous access using a 25 [place] femoral venous cannula
2. Redo sternotomy with extensive adhesiolysis (Modifier 22 for additional dissection time of 1 hour)
3. Direct aortic cannulation using ultrasound and Seldinger technique with a SAJAN guidance verifying true lumen access
4. Moderate hypothermic circulatory arrest with antegrade cerebral perfusion
5. Hemiarch ascending aortic replacement
6. Aortic root replacement using a 27 mm valved conduit
7. Ligation of left and right coronary ostia as they were dissected coronary bypass grafting to an acute marginal
8. Relocation of previous vein grafts onto this acute marginal vein graft
9. Placement of temporary atrial ventricular pacing wires
10. Transesophageal echocardiography
11. Temporary chest packing, open chest.
Impella Placement, 03/08/2025:
Procedure(s) Performed:
1. The temporary dressing over top of the open chest was removed
2. Placement of atrial pacing wires
3. Anastomosis of a 10 mm straight tube graft off of the ascending aortic graft, graft to graft anastomosis
4. Graft tunneled to the left supra clavicular region between the strap muscles
5. Placement of a 5.5 direct aortic Impella LVAD
6. Chest closure in usual fashion
TTE, 03/08/2025:
SUMMARY
1. TDS.
2. In limited views, left ventricle appears normal sized with severely reduced systolic function. Left ventricle ejection fraction is 25-30% by visual estimation. Global hypokinesis. S/p Impella 5.5 insertion which appears to be appropriately
placed.
3. In limited views right ventricle appears normal sized with mildly reduced systolic function. Right ventricle does appear to expand in diastole.
4. Limited valvular interrogation.
5. Compared to SAJAN earlier in day, overall, no significant change.
Bedside Rexploration, 03/08/2025:
Procedure: Emergency bedside reopening of chest and the loculation of clot ligation of IAN which was the bleeding source, repacking with 1 vaginal pack and Kerlix and replacement of new chest tubes
CT surgery re-exploration, 03/09/2025 (morning):
PROCEDURES:
1. Mediastinal reexploration/irrigation and removal of packing.
2. Repositioning of proximal course of greater saphenous vein graft
with several 6-0 Prolene sutures (placed/subsequently removed).
3. Placement of 6 mm ringed PTFE graft around proximal segment of
greater saphenous vein graft .
4. Replacement of new mediastinal packing (1 vaginal pack and
partial roll of Kerlix; syringe based sternal separation).
5. Reexploration with replacement of new open chest dressing.
CT surgery re-exploration, 03/09/2025 (afternoon):
Procedure(s) Performed:
1. Reopening of temporary chest coverage.
2. Ligation of IAN.
3. Coronary artery bypass grafting x 1 (Aortic Graft to RSVG to RSVG - T-graft).
4. Open vein harvest of the left thigh.
5. Transesophageal echocardiography.
6. Repacking of chest and placement of temporary dressing.
Physical Exam
Vital Signs/Labs
Vital Signs
Temp Pulse Resp BP Pulse Ox
36.4 C 91 20 116/77 96
04/07/25 15:35 04/07/25 15:00 04/07/25 15:35 04/07/25 15:36 04/07/25 15:35
04/06/25 04/07/25 04/08/25
06:59 06:59 06:59
Actual Weight 86.5 kg 85.8 kg
04/07/25 06:13
04/07/25 04:29
PT 17.1 Sec (11.4-14.6) H 04/03/25 14:06
INR 1.36 04/03/25 14:06
APTT 37.3 Sec (23.4-35.0) H 04/03/25 14:06
Magnesium 2.0 mg/dl (1.6-2.3) 04/07/25 04:29
Triglycerides 67 mg/dl (10-149) 04/06/25 03:34
Physical Exam
Constitutional: Comfortable
Cardiovascular: Rhythm/rate is irregular
Respiratory: Respiratory effort normal
Neuro/Psych: AO x 3
Data Reviewed
-
Date of Service: April 07, 2025
Medical Decision Making: Reviewed Test Results
Labs: Labs Reviewed by me
--- NOTE | 2025-04-07 20:23 | PTCARENOTE ---
received pt from previous rn. pt AAOx3, confused conversation, forgetful. VSS. Afib on monitor HR 90s, +2 lower extremity edema. Lungs diminished, pulse ox 97% on 2L. occasional cough noted. Abdomen soft with positive bowel sounds. PEG tube
noted, nocturnal feeds started as ordered. Buenrostro catheter draining yellow urine with sediment. Sternal and leg incisions approximated, scabbed. Left chest dressing intact. Right chest tube site with ABD intact. Sacral dressing intact. PIV x3
all flushed and patent. Bed alarm engaged. Plan of care discussed, call bustillos within reach.
[2025-04-07] MEDS: FLOMAX 0.4 MG PO (21:05)
[2025-04-08] VITALS (18 sets, daily range): BP systolic 89–117; BP diastolic 63–82; PULSE 92; O2SAT 98; BMI 26.4
--- NOTE | 2025-04-08 00:16 | PTCARENOTE ---
pt reassessed. pt resting comfortably in bed. no c/o pain at this time. A-fib per tele monitor HR 80s. pox 96% on 2L. tube feeds running per order. assessment remains unchanged.
[2025-04-08] MEDS: MAXIPIME 1000 MG IV ×4 (01:47→20:06)
[2025-04-08] MEDS: STERILE WATER FOR INJECTION 10 ML IV ×4 (01:47→20:06)
--- NOTE | 2025-04-08 04:05 | PTCARENOTE ---
AM labs sent. VSS. A-fib per tele monitor assessment unchanged.
[2025-04-08 04:25] LABS: Blood Urea Nitrogen 33 mg/dl (9-20); Calcium 7.4 mg/dl (8.4-10.2); Chloride 99 mmol/L (98-107); Estimated Creatinine Clearance 78 ml/min; Glucose 123 mg/dl (70-99); Potassium 3.5 mmol/L (3.5-5.1); Sodium 136 mmol/L (135-145); eGFR > 60.00
[2025-04-08 04:30] LABS: Hematocrit 25.3 % (39.0-52.0); Hemoglobin 7.9 g/dL (13.0-18.0); Mean Corp Hgb Conc. 31.2 g/dL (33.0-37.0); Mean Corpuscular Volume 100.4 fL (80.0-94.0); Platelet Count 268 10^3/uL (130-400); Red Cell Dist. Width 20.1 % (11.5-14.5)
[2025-04-08 04:35] LABS: Carbon Dioxide 35 mmol/L (22-30)
--- NOTE | 2025-04-08 05:49 | W.PN.CT ---
Today's Communication / Plan
-
-pod #32
-no issues overnight, pleasant, A&Ox3, no complaints, looks good
-got 1 pRBC on 04/07 for Hg 7.6. Hg today is 7.9
-diuresing with Bumex 2 mg bid. UO 700/2625 in 12/24 hrs
-Cr is stable 0.9
-CXR appears without change. Follow radiology report
-on RA this am - pOx 94%
-wbc is trending down, on Cefepime. Remains afebrile
-encourage IS, OOB
-continue PT/OT
-
Assessment / Plan
-
Impression:
-Aortic dissection, s/p ascending aorta replacement and CABG x 03/07/25, pod #32
-Acute respiratory failure with hypercapnia
-Acute systolic CHF
-EF 25-30% on TTE 03/08/25, improved to 30-35%
-b/l pleural effusions, increased on L- R CT dcd 04/06 (not draining)
-Cardiogenic shock requiring pressors
-IRON (creatinine on admission 1.3)- resolved
-hypertension now with hypotension due to shock
-Leukocytosis - Cefepime started 04/05
-Hypokalemia- repleted
-Urinary retention - s/p Buenrostro placement on 04/06
-Confusion/sundowning
-[place] shaped opacity in the right midlung likely represents a pseudotumor with accompanying small right pleural effusion.
-Postop anemia 7.6- got 1 pRBC on 04/07
Echo 03/28/25:
1. Technically difficult study.
2. Moderate to severely reduced left ventricular function estimated ejection fraction 30 to 35%.
3. LVH.
4. Mild aortic stenosis suspected. Peak gradient 17 mmHg and mean gradient 8 mmHg.
5. Echodensity in the descending thoracic aorta consistent with known history of aortic dissection.
6. Pleural effusion.
7. Compared to 03/08 25. [id number] study was technically limited. Previous study Impella was presetn and estimated EF 25-30%.
Discussed patient care with: Nursing and Care Team
Subjective
Procedure
Transferred from OSH where he underwent right pigtail placement and needed to be intubated due to hypercarbic respiratory failure.
-
Date of Service: April 08, 2025
Objective Data
-
Lab Results
04/08/25 03:43
04/08/25 03:43
PT 17.1 Sec (11.4-14.6) H 04/03/25 14:06
INR 1.36 04/03/25 14:06
APTT 37.3 Sec (23.4-35.0) H 04/03/25 14:06
Vital Signs
Vital Signs
Temp Pulse Resp BP Pulse Ox
98 F 72 16 102/63 94
04/08/25 04:00 04/08/25 05:00 04/08/25 05:00 04/08/25 05:00 04/08/25 05:00
CT Intake/Output/Weight
04/07/25 04/07/25 04/08/25
06:59 18:59 06:59
Intake Total 495 / 735 615 / 1255 640 / 1255
Output Total 1050 / 3000 1925 / 2625 700 / 2625
Balance -555 / -2265 -1310 / -1370 -60 / -1370
SaO2: 94
Physical Exam
-
General: Awake and AOx3
Cardiovascular: Regular rate & rhythm and Irregular rate & rhythm
Respiratory: Decreased Breath Sounds
Sternum: Stable
Incision: Clean, Dry and Intact
Extremities: Edema +2
Data Reviewed
-
Lab Results: Results Reviewed
Medications: Active Meds Reviewed
Chest X-Ray: Report Reviewed and Image Reviewed
ECG: Report Reviewed and Image Reviewed
[2025-04-08] MEDS: SYNTHROID 150 MCG PO (05:54)
[2025-04-08] MEDS: KLOR-CON 40 MEQ PO (05:54)
--- NOTE | 2025-04-08 07:35 | PTCARENOTE ---
pt received from outgoing rn, pt in bed resting, oob with mohinder lift, tf qhs, oral diet during day time, wound care management, ra, junctional rhythm, pt/ot, adams r/t retention.
--- NOTE | 2025-04-08 08:33 | W.PN.CD ---
Today's Communication / Plan
-
OOB as able
PT as able
Diuresis as BP allows
Impression / Plan
-
Respiratory failure:
-now extubated and on NC
-bilateral pleural effusion L>R, IR unable to tap L effusion 04/05, R chest tube removed 04/06 (not draining)
-getting diuresed as tolerated with [id number] HFpEF (weight up, effusions, LE edema). D/c weight 85.2, 89.2. down to 86
HFrEF/ICMO: [id number]
-Echo 03/28/25: Technically difficult study. Moderate to severely reduced left ventricular function estimated ejection fraction 30 to 35%. LVH. Status post aortic valve replacement. Mild aortic stenosis suspected. Peak gradient 17 mmHg and mean
gradient 8 mmHg. Echodensity in the descending thoracic aorta consistent with known history of aortic dissection. Pleural effusion.
-IV diuretic as BP tolerates, nearing prior dry weight; although weight elevated today?
-continue SGLT2I. He is on metoprolol tartrate (rather than succinate) since he is getting meds crushed to tube. Other GDMT limited by BP.
Aortic dissection:
-s/p CT surgery 03/07/25 with complex post op course as noted. Procedure details as below.
CAD:
-s/p CABG x 4, MV repair, TV repair, MAZE, and EVI exclusion with Dr. Sullivan (02/16/25).
-CABG anatomy has been altered due to compression/ischemia after dissection repair.
-The current anatomy is MAGANA to LAD, SVG from Ao graft to SVG to diagonal, sequential SVG Y-graft from diagonal graft to OM1 to LPL.
-on ASA, statin, BB
Anemia:
- 1U pRBC given 04/07
- monitor closely
Atrial fibrillation
-Persistent
-Rate/rhythm control with amiodarone, s/p MAZE with Dr. Sullivan, 02/16/2025.
-CHADS2-Vasc = 5 (CHF, HTN, Age x2, vascular disease)
-Anti-thrombotic therapy with apixaban 5 mg BID, S/P LAAE (#40 AtriClip, SN [id number]) with Dr. Sullivan, 02/16/2025.
Subjective: No new complaitns
Procedures:
CT surgery, 03/07/2025:
Procedure(s) Performed:
1. Ultrasound-guided access using Seldinger technique 2 the right common femoral artery and vein with percutaneous access using a 25 [place] femoral venous cannula
2. Redo sternotomy with extensive adhesiolysis (Modifier 22 for additional dissection time of 1 hour)
3. Direct aortic cannulation using ultrasound and Seldinger technique with a SAJAN guidance verifying true lumen access
4. Moderate hypothermic circulatory arrest with antegrade cerebral perfusion
5. Hemiarch ascending aortic replacement
6. Aortic root replacement using a 27 mm valved conduit
7. Ligation of left and right coronary ostia as they were dissected coronary bypass grafting to an acute marginal
8. Relocation of previous vein grafts onto this acute marginal vein graft
9. Placement of temporary atrial ventricular pacing wires
10. Transesophageal echocardiography
11. Temporary chest packing, open chest.
Impella Placement, 03/08/2025:
Procedure(s) Performed:
1. The temporary dressing over top of the open chest was removed
2. Placement of atrial pacing wires
3. Anastomosis of a 10 mm straight tube graft off of the ascending aortic graft, graft to graft anastomosis
4. Graft tunneled to the left supra clavicular region between the strap muscles
5. Placement of a 5.5 direct aortic Impella LVAD
6. Chest closure in usual fashion
TTE, 03/08/2025:
SUMMARY
1. TDS.
2. In limited views, left ventricle appears normal sized with severely reduced systolic function. Left ventricle ejection fraction is 25-30% by visual estimation. Global hypokinesis. S/p Impella 5.5 insertion which appears to be appropriately
placed.
3. In limited views right ventricle appears normal sized with mildly reduced systolic function. Right ventricle does appear to expand in diastole.
4. Limited valvular interrogation.
5. Compared to SAJAN earlier in day, overall, no significant change.
Bedside Rexploration, 03/08/2025:
Procedure: Emergency bedside reopening of chest and the loculation of clot ligation of IAN which was the bleeding source, repacking with 1 vaginal pack and Kerlix and replacement of new chest tubes
CT surgery re-exploration, 03/09/2025 (morning):
PROCEDURES:
1. Mediastinal reexploration/irrigation and removal of packing.
2. Repositioning of proximal course of greater saphenous vein graft
with several 6-0 Prolene sutures (placed/subsequently removed).
3. Placement of 6 mm ringed PTFE graft around proximal segment of
greater saphenous vein graft .
4. Replacement of new mediastinal packing (1 vaginal pack and
partial roll of Kerlix; syringe based sternal separation).
5. Reexploration with replacement of new open chest dressing.
CT surgery re-exploration, 03/09/2025 (afternoon):
Procedure(s) Performed:
1. Reopening of temporary chest coverage.
2. Ligation of IAN.
3. Coronary artery bypass grafting x 1 (Aortic Graft to RSVG to RSVG - T-graft).
4. Open vein harvest of the left thigh.
5. Transesophageal echocardiography.
6. Repacking of chest and placement of temporary dressing.
Physical Exam
Vital Signs/Labs
Vital Signs
Temp Pulse Resp BP Pulse Ox
98 F 79 13 117/74 93
04/08/25 04:00 04/08/25 07:00 04/08/25 07:00 04/08/25 07:00 04/08/25 07:50
04/07/25 04/08/25 04/09/25
06:59 06:59 06:59
Actual Weight 189 lb 2.506 oz 194 lb 10.691 oz
04/08/25 03:43
04/08/25 03:43
PT 17.1 Sec (11.4-14.6) H 04/03/25 14:06
INR 1.36 04/03/25 14:06
APTT 37.3 Sec (23.4-35.0) H 04/03/25 14:06
Magnesium 2.0 mg/dl (1.6-2.3) 04/07/25 04:29
Triglycerides 67 mg/dl (10-149) 04/06/25 03:34
Physical Exam
Constitutional: No acute distress and Comfortable
EENT: Anicteric
Cardiovascular: Rhythm/rate is irregular and Pedal edema present (trace)
Respiratory: Rhonchi Present
GI: Soft
Neuro/Psych: AO x 3
Data Reviewed
-
Date of Service: April 08, 2025
Medical Decision Making: Reviewed Test Results
EKG: Tracing Personally Visualized and interpreted (af)
Echo: Report Reviewed by me
Labs: Labs Reviewed by me
[2025-04-08] MEDS: PACERONE 200 MG PO (09:31)
[2025-04-08] MEDS: BUMEX 2 MG IV ×2 (09:31→16:12)
[2025-04-08] MEDS: PREVACID 30 MG PO (09:31)
[2025-04-08] MEDS: ELIQUIS 5 MG PO ×2 (09:31→20:05)
[2025-04-08] MEDS: KLOR-CON 20 MEQ PO ×2 (09:31→20:05)
[2025-04-08] MEDS: FARXIGA 10 MG PO (09:32)
[2025-04-08] MEDS: LOW STRENGTH ASPIRIN 81 MG PO (09:32)
[2025-04-08] MEDS: LOPRESSOR 12.5 MG PO ×2 (09:32→20:05)
--- NOTE | 2025-04-08 11:36 | PTCARENOTE ---
pt reassessment unchanged from previous, vss, ra, nsr 1avb, pain management, oob in chair via mohinder, working with PT/OT at the bedside
--- NOTE | 2025-04-08 12:21 | PTCARENOTE ---
Per PT request for tomorrow morning to have AM reach out to PT matt to help assist get pt oob via walker assistance instead of the use of mohinder lift.
[2025-04-08] MEDS: FEOSOL 325 MG PO (14:12)
--- NOTE | 2025-04-08 16:18 | PTCARENOTE ---
pt reassessment unchanged from previous, vss, ra, nsr, in and out of bed, TF qhs, chronic adams, bumex iv bid
[2025-04-08] MEDS: LIPITOR 40 MG PO (17:50)
--- NOTE | 2025-04-08 20:00 | PTCARENOTE ---
Pt received awake alert and oriented with some confused conversation. Forgetful. Bed alarm on. Tube feeding infusing. No residuals noted. Pt able to take small po meds with water without difficulty. Assessment as charted.
[2025-04-08] MEDS: KCL ELIXIR 40 MEQ TUBE (20:11)
[2025-04-08] MEDS: FLOMAX 0.4 MG PO (21:39)
[2025-04-09] VITALS (12 sets, daily range): BP systolic 99–126; BP diastolic 64–82; PULSE 88; O2SAT 95; BMI 26.6
[2025-04-09] MEDS: STERILE WATER FOR INJECTION 10 ML IV ×4 (02:31→19:53)
[2025-04-09] MEDS: MAXIPIME 1000 MG IV ×4 (02:31→19:53)
--- NOTE | 2025-04-09 03:25 | W.PN.CT ---
Today's Communication / Plan
-
Plan:
-No major issues overnight. Hemodynamically and neurologically intact
-On Eliquis for PAF, NSR overnight. Will transition Lopressor to Toprol XL given CM/CHF
-Postop urinary retention S/p adams reinsertion on 04/06. Started on Flomax
-Bp has been soft, started on Midodrine
-Receiving tube feeds via PEG with Osmolite @ 55 ml/hr from 6pm-6Am and IDDSI-6 soft/bite size diet
-On Cefepime, consider d/c, afebrile, wbc
-Encourage use of IS, currently on RA
-Will replete Ca++ and Mg
-Monitor hyponatremia, 133. Cont. diuresis, fluid restriction
-OOB into chair/Ambulate/PT/OT/SP following
-Eventual [facility] re[facility] placement, seen by Physiatry
Assessment / Plan
-
Impression:
-Aortic dissection, s/p ascending aorta replacement and CABG x 03/07/25, pod #33
-Acute respiratory failure with hypercapnia
-Acute systolic CHF
-EF 25-30% on TTE 03/08/25, improved to 30-35%
-b/l pleural effusions, increased on L- R CT dcd 04/06 (not draining)
-Cardiogenic shock requiring pressors
-IRON (creatinine on admission 1.3)- resolved
-hypertension now with hypotension due to shock
-Leukocytosis - Cefepime started 04/05
-Hypokalemia- repleted
-Urinary retention - s/p Adams placement on 04/06
-Confusion/sundowning
-[place] shaped opacity in the right midlung likely represents a pseudotumor with accompanying small right pleural effusion.
-Postop anemia 7.6- got 1 pRBC on 04/07
Echo 03/28/25:
1. Technically difficult study.
2. Moderate to severely reduced left ventricular function estimated ejection fraction 30 to 35%.
3. LVH.
4. Mild aortic stenosis suspected. Peak gradient 17 mmHg and mean gradient 8 mmHg.
5. Echodensity in the descending thoracic aorta consistent with known history of aortic dissection.
6. Pleural effusion.
7. Compared to 03/08 25. [id number] study was technically limited. Previous study Impella was present and estimated EF 25-30%.
Discussed patient care with: Cardiology, Nursing, Respiratory Therapy, Pharmacy and Care Team
Subjective
-
Date of Service: April 09, 2025
Pt offers no complaints
Objective Data
-
PT 17.1 Sec (11.4-14.6) H 04/03/25 14:06
INR 1.36 04/03/25 14:06
APTT 37.3 Sec (23.4-35.0) H 04/03/25 14:06
Vital Signs
Vital Signs
Temp Pulse Resp BP Pulse Ox
98.3 F 89 18 117/77 95
04/08/25 20:00 04/08/25 22:00 04/08/25 20:00 04/08/25 20:05 04/08/25 20:00
CT Intake/Output/Weight
04/08/25 04/08/25 04/09/25
06:59 18:59 06:59
Intake Total 640 / 1255 120 / 120
Output Total 700 / 2625 1200 / 1200
Balance -60 / -1370 -1080 / -1080
SaO2: 95 (RA)
Physical Exam
-
General: Awake, Oriented and AOx3
Cardiovascular: Regular rate & rhythm, No Murmurs and No Gallop
Respiratory: Decreased Breath Sounds (at bases, otherwise clear)
Sternum: Stable
Incision: Clean, Dry, Intact and Dressing Intact
Extremities: Edema +1
Data Reviewed
-
Lab Results: Results Reviewed
Medications: Active Meds Reviewed
Chest X-Ray: Report Reviewed and Image Reviewed
ECG: Report Reviewed and Image Reviewed
[2025-04-09 03:49] LABS: Hematocrit 24.5 % (39.0-52.0); Hemoglobin 7.8 g/dL (13.0-18.0); Mean Corp Hgb Conc. 31.8 g/dL (33.0-37.0); Mean Corpuscular Volume 100.8 fL (80.0-94.0); Platelet Count 261 10^3/uL (130-400); Red Cell Dist. Width 19.5 % (11.5-14.5)
[2025-04-09 04:14] LABS: Blood Urea Nitrogen 32 mg/dl (9-20); Calcium 7.2 mg/dl (8.4-10.2); Chloride 97 mmol/L (98-107); Estimated Creatinine Clearance 88 ml/min; Glucose 115 mg/dl (70-99); Magnesium 1.7 mg/dl (1.6-2.3); Potassium 4.0 mmol/L (3.5-5.1); Sodium 133 mmol/L (135-145); eGFR > 60.00
--- NOTE | 2025-04-09 05:08 | PTCARENOTE ---
Slept well during the night. Tolerating tube feeds. No change in assessment.
[2025-04-09 05:21] LABS: Carbon Dioxide 34 mmol/L (22-30)
[2025-04-09] MEDS: CALCIUM GLUCONATE 130 MG IV (06:19)
[2025-04-09] MEDS: SYNTHROID 150 MCG PO (06:19)
[2025-04-09] MEDS: MAGNESIUM SULFATE 50 IV (07:30)
[2025-04-09] MEDS: KLOR-CON 20 MEQ PO ×2 (07:31→19:52)
[2025-04-09] MEDS: FARXIGA 10 MG PO (07:31)
[2025-04-09] MEDS: FEOSOL 325 MG PO (07:32)
[2025-04-09] MEDS: PREVACID 30 MG PO (07:32)
[2025-04-09] MEDS: TOPROL XL 12.5 MG PO ×2 (07:32→19:52)
[2025-04-09] MEDS: MAGNESIUM OXIDE 400 MG PO ×2 (07:32→19:53)
[2025-04-09] MEDS: DIAMOX 500 MG PO (07:32)
[2025-04-09] MEDS: PACERONE 200 MG PO (07:32)
[2025-04-09] MEDS: LOW STRENGTH ASPIRIN 81 MG PO (07:33)
[2025-04-09] MEDS: ELIQUIS 5 MG PO ×2 (07:33→19:52)
[2025-04-09] MEDS: BUMEX 2 MG IV ×2 (07:33→15:27)
--- NOTE | 2025-04-09 10:11 | PTCARENOTE ---
Assumed care of pt from night RN. AAOx3 but forgetful at times. NSR on tele, HR 70s-90s. SpO2 95% on room air. VSS. Buenrostro removed for void trial, male purewick in place. Pt able to eat 100% of breakfast, 72hr calorie counts. Able to stand with PT/OT
for approximately 1 minute at bedside. Cierra lift used to transfer pt from bed to chair. Call bustillos in reach. Assessment documented.
--- NOTE | 2025-04-09 10:24 | W.PN.CD ---
Today's Communication / Plan
-
diuresis
Impression / Plan
-
Respiratory failure:
-now extubated and on NC
-bilateral pleural effusion L>R, IR unable to tap L effusion 04/05, R chest tube removed 04/06 (not draining)
-getting diuresed as tolerated with [id number] HFpEF (weight up, effusions, LE edema).
HFrEF/ICMO: [id number]
-Echo 03/28/25: Technically difficult study. Moderate to severely reduced left ventricular function estimated ejection fraction 30 to 35%. LVH. Status post aortic valve replacement. Mild aortic stenosis suspected. Peak gradient 17 mmHg and mean
gradient 8 mmHg. Echodensity in the descending thoracic aorta consistent with known history of aortic dissection. Pleural effusion.
-wt climbing again, 2+ pitting edema up throught the b/l legs and thighs
-d/w CTPA, recommend a more aggressive trial of diuresis, she has already given Diamox today in addition to bumex. Will need to assess response.
-continue SGLT2I. He is on metoprolol tartrate (rather than succinate) since he is getting meds crushed to tube. Other GDMT limited by BP.
Aortic dissection:
-s/p CT surgery 03/07/25 with complex post op course as noted. Procedure details as below.
CAD:
-s/p CABG x 4, MV repair, TV repair, MAZE, and EVI exclusion with Dr. Sullivan (02/16/25).
-CABG anatomy has been altered due to compression/ischemia after dissection repair.
-The current anatomy is MAGANA to LAD, SVG from Ao graft to SVG to diagonal, sequential SVG Y-graft from diagonal graft to OM1 to LPL.
-on ASA, statin, BB
Anemia:
- 1U pRBC given 04/07
- monitor closely
Atrial fibrillation
-Persistent
-Rate/rhythm control with amiodarone, s/p MAZE with Dr. Sullivan, 02/16/2025.
-CHADS2-Vasc = 5 (CHF, HTN, Age x2, vascular disease)
-Anti-thrombotic therapy with apixaban 5 mg BID, S/P LAAE (#40 AtriClip, SN [id number]) with Dr. Sullivan, 02/16/2025.
Subjective: He is feeling better, he stood up today for the first time. He denies cp or sob.
Procedures:
CT surgery, 03/07/2025:
Procedure(s) Performed:
1. Ultrasound-guided access using Seldinger technique 2 the right common femoral artery and vein with percutaneous access using a 25 [place] femoral venous cannula
2. Redo sternotomy with extensive adhesiolysis (Modifier 22 for additional dissection time of 1 hour)
3. Direct aortic cannulation using ultrasound and Seldinger technique with a SAJAN guidance verifying true lumen access
4. Moderate hypothermic circulatory arrest with antegrade cerebral perfusion
5. Hemiarch ascending aortic replacement
6. Aortic root replacement using a 27 mm valved conduit
7. Ligation of left and right coronary ostia as they were dissected coronary bypass grafting to an acute marginal
8. Relocation of previous vein grafts onto this acute marginal vein graft
9. Placement of temporary atrial ventricular pacing wires
10. Transesophageal echocardiography
11. Temporary chest packing, open chest.
Impella Placement, 03/08/2025:
Procedure(s) Performed:
1. The temporary dressing over top of the open chest was removed
2. Placement of atrial pacing wires
3. Anastomosis of a 10 mm straight tube graft off of the ascending aortic graft, graft to graft anastomosis
4. Graft tunneled to the left supra clavicular region between the strap muscles
5. Placement of a 5.5 direct aortic Impella LVAD
6. Chest closure in usual fashion
TTE, 03/08/2025:
SUMMARY
1. TDS.
2. In limited views, left ventricle appears normal sized with severely reduced systolic function. Left ventricle ejection fraction is 25-30% by visual estimation. Global hypokinesis. S/p Impella 5.5 insertion which appears to be appropriately
placed.
3. In limited views right ventricle appears normal sized with mildly reduced systolic function. Right ventricle does appear to expand in diastole.
4. Limited valvular interrogation.
5. Compared to SAJAN earlier in day, overall, no significant change.
Bedside Rexploration, 03/08/2025:
Procedure: Emergency bedside reopening of chest and the loculation of clot ligation of IAN which was the bleeding source, repacking with 1 vaginal pack and Kerlix and replacement of new chest tubes
CT surgery re-exploration, 03/09/2025 (morning):
PROCEDURES:
1. Mediastinal reexploration/irrigation and removal of packing.
2. Repositioning of proximal course of greater saphenous vein graft
with several 6-0 Prolene sutures (placed/subsequently removed).
3. Placement of 6 mm ringed PTFE graft around proximal segment of
greater saphenous vein graft .
4. Replacement of new mediastinal packing (1 vaginal pack and
partial roll of Kerlix; syringe based sternal separation).
5. Reexploration with replacement of new open chest dressing.
CT surgery re-exploration, 03/09/2025 (afternoon):
Procedure(s) Performed:
1. Reopening of temporary chest coverage.
2. Ligation of IAN.
3. Coronary artery bypass grafting x 1 (Aortic Graft to RSVG to RSVG - T-graft).
4. Open vein harvest of the left thigh.
5. Transesophageal echocardiography.
6. Repacking of chest and placement of temporary dressing.
Physical Exam
Vital Signs/Labs
Vital Signs
Temp Pulse Resp BP Pulse Ox
97.4 F 84 20 110/74 95
04/09/25 08:00 04/09/25 10:00 04/09/25 08:00 04/09/25 09:29 04/09/25 08:42
04/08/25 04/09/25 04/10/25
06:59 06:59 06:59
Actual Weight 194 lb 10.691 oz 196 lb 3.382 oz
04/09/25 03:28
04/09/25 03:28
PT 17.1 Sec (11.4-14.6) H 04/03/25 14:06
INR 1.36 04/03/25 14:06
APTT 37.3 Sec (23.4-35.0) H 04/03/25 14:06
Magnesium 1.7 mg/dl (1.6-2.3) 04/09/25 03:28
Triglycerides 67 mg/dl (10-149) 04/06/25 03:34
Physical Exam
Constitutional: No acute distress
Cardiovascular: Rhythm & rate is regular, Systolic murmur absent and Pedal edema present (2+ up throught the legs)
Respiratory: Respiratory effort normal, Lungs clear to auscul., Wheeze Absent and Crackles Absent
Neuro/Psych: AO x 3
Data Reviewed
-
Date of Service: April 09, 2025
EKG: Other (tele sinus 1st degree avb with pvcs)
--- NOTE | 2025-04-09 13:35 | PTCARENOTE ---
Pt able to void s/p Buenrostro removal. Bladder scanned for 301mL. Will continue to monitor. Pt back in controlled a.fib, HR 80s-90s. CTNP aware. Pt remains OOB in chair with family at bedside.
[2025-04-09] MEDS: LIPITOR 40 MG PO (17:57)
--- NOTE | 2025-04-09 20:00 | PTCARENOTE ---
Assumed care of patient. Patient in bed, resting comfortably. Pt in NSR, VSS. No complaints of pain. Patient assessed, vitals obtained, see flowsheets. Male purewick in place, pt voiding. Call bustillos within reach. Nocturnal tube feeds started as
ordered. Plan of care reviewed with patient.
[2025-04-09] MEDS: FLOMAX 0.4 MG PO (20:34)
[2025-04-10] VITALS (13 sets, daily range): BP systolic 93–128; BP diastolic 58–82; BMI 27.1
[2025-04-10] MEDS: MAXIPIME 1000 MG IV ×4 (01:09→20:43)
[2025-04-10] MEDS: STERILE WATER FOR INJECTION 10 ML IV ×4 (01:09→20:43)
--- NOTE | 2025-04-10 03:16 | W.PN.CT ---
Today's Communication / Plan
-
Plan:
Plan:
-No major issues overnight. Hemodynamically and neurologically intact
-On Eliquis for PAF, NSR overnight. Tolerating transition of Lopressor to Toprol XL given CM/CHF
-Left forearm noted to be swollen compared to right, denies pain, consider u/s of LUE to R/O DVT, pt currently on Eliquis for PAF
-Postop urinary retention S/p adams reinsertion on 04/06 and d/c'd again yesterday 04/09. Started on Flomax. check PVR
-BP has been soft, started on Midodrine
-Receiving tube feeds via PEG with Osmolite @ 55 ml/hr from 6pm-6Am and IDDSI-6 soft/bite size diet
-On Cefepime for suspected PNA, afebrile, wbc 11.8
-Encourage use of IS, currently on RA
-Will replete Ca++, K+ and Mg
-Monitor hyponatremia, 128 was 133 yesterday. Cont. diuresis, fluid restriction
-Hypercapnia noted, will diurese with Diamox
-OOB into chair/Ambulate/PT/OT/SP following
-Eventual [facility] rehab placement, seen by Physiatry
Assessment / Plan
-
Impression:
-Aortic dissection, s/p ascending aorta replacement and CABG x 03/07/25, pod #34
-Acute respiratory failure with hypercapnia
-Acute systolic CHF
-EF 25-30% on TTE 03/08/25, improved to 30-35%
-b/l pleural effusions, increased on L- R CT dcd 04/06 (not draining)
-Cardiogenic shock requiring pressors
-IRON (creatinine on admission 1.3)- resolved
-hypertension now with hypotension due to shock
-Leukocytosis - Cefepime started 04/05
-Hypokalemia- repleted
-Urinary retention - s/p Adams placement on 04/06
-Confusion/sundowning
-[place] shaped opacity in the right midlung likely represents a pseudotumor with accompanying small right pleural effusion.
-Postop anemia 7.6- got 1 pRBC on 04/07
Echo 03/28/25:
1. Technically difficult study.
2. Moderate to severely reduced left ventricular function estimated ejection fraction 30 to 35%.
3. LVH.
4. Mild aortic stenosis suspected. Peak gradient 17 mmHg and mean gradient 8 mmHg.
5. Echodensity in the descending thoracic aorta consistent with known history of aortic dissection.
6. Pleural effusion.
7. Compared to 03/08 25. [id number] study was technically limited. Previous study Impella was present and estimated EF 25-30%.
Discussed patient care with: Cardiology, Nursing, Respiratory Therapy, Pharmacy and Care Team
Subjective
-
Date of Service: April 10, 2025
Pt c/o mild incisional pain, otherwise feels well
Objective Data
-
PT 17.1 Sec (11.4-14.6) H 04/03/25 14:06
INR 1.36 04/03/25 14:06
APTT 37.3 Sec (23.4-35.0) H 04/03/25 14:06
Vital Signs
Vital Signs
Temp Pulse Resp BP Pulse Ox
97.4 F 89 18 116/76 95
04/10/25 01:16 04/09/25 20:00 04/09/25 15:43 04/09/25 20:00 04/10/25 01:16
CT Intake/Output/Weight
04/09/25 04/09/25 04/10/25
06:59 18:59 06:59
Intake Total 1260 / 1380 960 / 960
Output Total 800 / 2000 1100 / 1750 650 / 1750
Balance 460 / -620 -140 / -790 -650 / -790
SaO2: 95 (RA)
Physical Exam
-
General: Awake, Oriented and AOx3
Cardiovascular: Regular rate & rhythm, No Murmurs, No Rub and No Gallop
Respiratory: Decreased Breath Sounds (at bases, otherwise clear)
Sternum: Stable
Incision: Clean, Dry, Intact and Dressing Intact
Extremities: Edema +1
Data Reviewed
-
Lab Results: Results Reviewed
Medications: Active Meds Reviewed
Chest X-Ray: Report Reviewed and Image Reviewed
ECG: Report Reviewed and Image Reviewed
[2025-04-10] MEDS: SYNTHROID 150 MCG PO (04:19)
--- NOTE | 2025-04-10 05:00 | PTCARENOTE ---
Pt noted to have increased RUE swelling. Notified provider. US ordered to r/o DVT. pt is on eliquis at this time.
[2025-04-10 05:18] LABS: Hematocrit 23.5 % (39.0-52.0); Hemoglobin 8.0 g/dL (13.0-18.0); Mean Corp Hgb Conc. 34.0 g/dL (33.0-37.0); Mean Corpuscular Volume 95.5 fL (80.0-94.0); Platelet Count 243 10^3/uL (130-400); Red Cell Dist. Width 18.8 % (11.5-14.5)
[2025-04-10 05:22] LABS: Blood Urea Nitrogen 31 mg/dl (9-20); Calcium 7.9 mg/dl (8.4-10.2); Carbon Dioxide 34 mmol/L (22-30); Chloride 96 mmol/L (98-107); Estimated Creatinine Clearance 78 ml/min; Glucose 110 mg/dl (70-99); Magnesium 2.0 mg/dl (1.6-2.3); Potassium 3.6 mmol/L (3.5-5.1); Sodium 128 mmol/L (135-145); eGFR > 60.00
[2025-04-10] MEDS: CALCIUM GLUCONATE 130 MG IV (05:53)
[2025-04-10] MEDS: PREVACID 30 MG PO (09:09)
[2025-04-10] MEDS: FARXIGA 10 MG PO (09:09)
[2025-04-10] MEDS: LOW STRENGTH ASPIRIN 81 MG PO (09:09)
[2025-04-10] MEDS: ELIQUIS 5 MG PO ×2 (09:09→20:43)
[2025-04-10] MEDS: FEOSOL 325 MG PO (09:10)
[2025-04-10] MEDS: PACERONE 200 MG PO (09:10)
[2025-04-10] MEDS: KLOR-CON 20 MEQ PO ×2 (09:10→20:42)
[2025-04-10] MEDS: BUMEX 2 MG IV ×3 (09:10→21:41)
[2025-04-10] MEDS: MAGNESIUM OXIDE 400 MG PO ×2 (09:10→20:43)
[2025-04-10] MEDS: TOPROL XL 12.5 MG PO (09:11)
[2025-04-10] MEDS: DIAMOX 500 MG PO (16:11)
--- NOTE | 2025-04-10 17:00 | PTCARENOTE ---
Assumed care of pt from night RN. AAOx3 but confused/forgetful at times. NSR/ST/Afib on tele, HRs 80-100s. SpO2 96% on room air. VSS. Pt with 2 large formed BMs today. Able to stand and pivot from bed to chair with 2 person max assist and RW.
Transferred back to bed with Cierra lift Assessment documented. Pt resting in bed, with family at bedside.
[2025-04-10] MEDS: LIPITOR 40 MG PO (17:50)
[2025-04-10] MEDS: TOPROL XL 25 MG PO (20:44)
[2025-04-10] MEDS: TYLENOL 650 MG PO (21:42)
[2025-04-10] MEDS: FLOMAX 0.4 MG PO (21:42)
[2025-04-10] MEDS: KCL ELIXIR 20 MEQ TUBE (21:42)
--- NOTE | 2025-04-10 23:17 | PTCARENOTE ---
1900: Bedside report received from David. pt found to be in afib with elevated ventricular rate (see chart for tele strips). Provider notified, orders placed. Pt moved to the bed. Family, at bedside, updated on plan of care. Amio IV stated ( see mar
for details). 2 additional IVs inserted. ship liner in place with AAAA. Pacer wires insulated. Belongings and call bustillos within reach. Bed in the lowest position. All needs met a this time. See EMR for assessment.
2300: Pt converted to NSR (see chart for tele strips). Provider made aware and pt updated. ship liner in place, AAAA. Call bustillos and personal belongings within reach. All needs met at this time.
--- NOTE | 2025-04-10 23:25 | PTCARENOTE ---
Addendum entered by Reina Moody RN 04/11/25 03:56:
0300: Pt sleeping, respirations observed. metal spinner in place, Afib controlled rate, AAAA. See emr for VS. call bustillos and personal belongings within reach. bed in lowest position. no needs at this time.
Original Note:
1900: Report received from David CORTES. Pt comfortable in bed. metal spinner in place with AAAA. IV in place and intact. Peg tube in place and intact. All would dressing CDI. call bustillos and personal belongings within reach. Bed in lowest position. All
needs met a this time.
2300: During care pt spoke about feeling indebted to those in his life who have supported and helped in the recent months. Pt expesses feelings of anxiety and sadness about his diminished ambulatory ability and critical health concerns. Rn asked if
the pt had spoke to pastoral care since being here. Pt replied that he had spoken to some people who came to the room, unsure if volunteers or not, and having someone listen has helped. Pt misses his and worries that she has to take care for
small farm on her own. RN asked if the pt would like to speak to psych about these feelings. Pt was unsure at the time. Pt also expressed concerns for is episodes of confusion. He describes having difficulty being able to discern what hospital he's
at and feels like he should be at home when hi wakes. Rn discussed a plan of care that prioritizes getting larger episodes of uninterrupted sleep when possible and treating his mild pain with tylenol. Pt was agreeable. Shades were opened to
encourage natural light in the AM and help with sleep wake cycles.
Monitor in place. AAAA. bed in the lowest position. call bustillos and personal belonigns within reach. All needs met at this time.
[2025-04-11] VITALS (12 sets, daily range): BP systolic 93–123; BP diastolic 59–84; BMI 26.8
[2025-04-11] MEDS: MAXIPIME 1000 MG IV ×4 (03:01→20:27)
[2025-04-11] MEDS: STERILE WATER FOR INJECTION 10 ML IV ×4 (03:02→20:27)
--- NOTE | 2025-04-11 03:33 | W.PN.CT ---
Today's Communication / Plan
-
Plan:
-No major issues overnight. Hemodynamically and neurologically intact
-On Eliquis for PAF, NSR overnight. Tolerating transition of Lopressor to Toprol XL given CM/CHF
-Postop urinary retention S/p adams reinsertion on 04/06 and d/c'd again on04/09. Started on Flomax, check PVR
-BP has been soft postop, but now improved, Midodrine placed on PRN
-Nocturnal tube feeds discontinued yesterday as pt now tolerating regular diet with IDDSI-6 soft/bite size diet
-On Cefepime for suspected PNA, afebrile, wbc 11.9
-Encourage use of IS, currently on RA
-Will replete Ca++, K+ and Mg
-Monitor h/h 7.5/23.9
-Monitor hyponatremia, 128 was 133 yesterday. Cont. diuresis, fluid restriction
-Hypercapnia noted, will diurese with Diamox
-OOB into chair/Ambulate/PT/OT/SP following
-Eventual [facility] re[facility] placement, seen by Physiatry
Assessment / Plan
-
Impression:
-Aortic dissection, s/p ascending aorta replacement and CABG x 03/07/25, pod #35
-Acute respiratory failure with hypercapnia
-Acute systolic CHF
-EF 25-30% on TTE 03/08/25, improved to 30-35%
-b/l pleural effusions, increased on L- R CT dcd 04/06 (not draining)
-Cardiogenic shock requiring pressors
-IRON (creatinine on admission 1.3)- resolved
-hypertension now with hypotension due to shock
-Leukocytosis - Cefepime started 04/05
-Hypokalemia- repleted
-Urinary retention - s/p Adams placement on 04/06
-Confusion/sundowning
-[place] shaped opacity in the right midlung likely represents a pseudotumor with accompanying small right pleural effusion.
-Postop anemia 7.6- got 1 pRBC on 04/07
Echo 03/28/25:
1. Technically difficult study.
2. Moderate to severely reduced left ventricular function estimated ejection fraction 30 to 35%.
3. LVH.
4. Mild aortic stenosis suspected. Peak gradient 17 mmHg and mean gradient 8 mmHg.
5. Echodensity in the descending thoracic aorta consistent with known history of aortic dissection.
6. Pleural effusion.
7. Compared to 03/08 25. [id number] study was technically limited. Previous study Impella was present and estimated EF 25-30%.
Discussed patient care with: Cardiology, Nursing, Respiratory Therapy, Pharmacy and Care Team
Subjective
-
Date of Service: April 11, 2025
Pt c/o mild incisional pain, otherwise feels well
Objective Data
-
PT 17.1 Sec (11.4-14.6) H 04/03/25 14:06
INR 1.36 04/03/25 14:06
APTT 37.3 Sec (23.4-35.0) H 04/03/25 14:06
Vital Signs
Vital Signs
Temp Pulse Resp BP Pulse Ox
97.7 F 76 16 105/76 94
04/11/25 03:27 04/11/25 02:00 04/10/25 16:18 04/11/25 00:00 04/11/25 03:27
CT Intake/Output/Weight
04/10/25 04/10/25 04/11/25
06:59 18:59 06:59
Intake Total 960 / 1920 480 / 840 360 / 840
Output Total 850 / 1950 1450 / 2550 1100 / 2550
Balance 110 / -30 -970 / -1710 -740 / -1710
SaO2: 94 (RA)
Physical Exam
-
General: Awake, Oriented and AOx3
Cardiovascular: Regular rate & rhythm, No Murmurs, No Rub and No Gallop
Respiratory: Decreased Breath Sounds (at bases, otherwise clear)
Sternum: Stable
Incision: Clean, Dry, Intact and Dressing Intact
Extremities: Edema +2
Data Reviewed
-
Lab Results: Results Reviewed
Medications: Active Meds Reviewed
Chest X-Ray: Report Reviewed and Image Reviewed
ECG: Report Reviewed and Image Reviewed
[2025-04-11 03:39] LABS: Hematocrit 23.9 % (39.0-52.0); Hemoglobin 7.5 g/dL (13.0-18.0); Mean Corp Hgb Conc. 31.4 g/dL (33.0-37.0); Mean Corpuscular Volume 99.2 fL (80.0-94.0); Platelet Count 245 10^3/uL (130-400); Red Cell Dist. Width 18.6 % (11.5-14.5)
[2025-04-11 04:16] LABS: Blood Urea Nitrogen 30 mg/dl (9-20); Calcium 7.8 mg/dl (8.4-10.2); Carbon Dioxide 33 mmol/L (22-30); Chloride 100 mmol/L (98-107); Estimated Creatinine Clearance 70 ml/min; Glucose 78 mg/dl (70-99); Magnesium 1.8 mg/dl (1.6-2.3); Potassium 3.2 mmol/L (3.5-5.1); Sodium 131 mmol/L (135-145); eGFR > 60.00
[2025-04-11] MEDS: CALCIUM GLUCONATE 130 MG IV (05:51)
[2025-04-11] MEDS: SYNTHROID 150 MCG PO (05:52)
[2025-04-11] MEDS: MAGNESIUM SULFATE 102 GRAMS IV (05:52)
[2025-04-11] MEDS: KCL ELIXIR 40 MEQ TUBE ×2 (05:53→07:54)
[2025-04-11] MEDS: DIAMOX 500 MG PO (07:52)
[2025-04-11] MEDS: TOPROL XL 25 MG PO ×2 (07:53→20:27)
[2025-04-11] MEDS: BUMEX 2 MG IV (07:53)
[2025-04-11] MEDS: FARXIGA 10 MG PO (07:53)
[2025-04-11] MEDS: PREVACID 30 MG PO (07:53)
[2025-04-11] MEDS: FEOSOL 325 MG PO (07:53)
[2025-04-11] MEDS: MAGNESIUM OXIDE 400 MG PO ×2 (07:53→20:27)
[2025-04-11] MEDS: PACERONE 200 MG PO (07:54)
[2025-04-11] MEDS: ELIQUIS 5 MG PO ×2 (07:54→20:27)
[2025-04-11] MEDS: LOW STRENGTH ASPIRIN 81 MG PO (07:54)
--- NOTE | 2025-04-11 08:12 | W.PN.CD ---
Today's Communication / Plan
-
Continue diuresis with close monitoring of labs and weights.
Patient's hemoglobin down to 7.5 consider additional PRBC.
Impression / Plan
-
Respiratory failure:
-now extubated and on NC
-bilateral pleural effusion L>R, IR unable to tap L effusion 04/05, R chest tube removed 04/06 (not draining)
-getting diuresed as tolerated with [id number] HFpEF (weight up, effusions, LE edema).
HFrEF/ICMO: [id number]
-Echo 03/28/25: Technically difficult study. Moderate to severely reduced left ventricular function estimated ejection fraction 30 to 35%. LVH. Status post aortic valve replacement. Mild aortic stenosis suspected. Peak gradient 17 mmHg and mean
gradient 8 mmHg. Echodensity in the descending thoracic aorta consistent with known history of aortic dissection. Pleural effusion.
- Still with edema
- Weight appears to be down 1 kg in the morning 04/11/2025. Continue with diuresis and monitor renal function and weights
-continue SGLT2I. He is on metoprolol tartrate (rather than succinate) since he is getting meds crushed to tube. Other GDMT limited by BP.
Aortic dissection:
-s/p CT surgery 03/07/25 with complex post op course as noted. Procedure details as below.
CAD:
-s/p CABG x 4, MV repair, TV repair, MAZE, and EVI exclusion with Dr. Sullivan (02/16/25).
-CABG anatomy has been altered due to compression/ischemia after dissection repair.
-The current anatomy is MAGANA to LAD, SVG from Ao graft to SVG to diagonal, sequential SVG Y-graft from diagonal graft to OM1 to LPL.
-on ASA, statin, BB
Anemia:
- 1U pRBC given 04/07. Hemoglobin back down to 7.5. Consider additional PRBCs
- monitor closely
Atrial fibrillation
-Persistent
-Rate/rhythm control with amiodarone, s/p MAZE with Dr. Sullivan, 02/16/2025.
-CHADS2-Vasc = 5 (CHF, HTN, Age x2, vascular disease)
-Anti-thrombotic therapy with apixaban 5 mg BID, S/P LAAE (#40 AtriClip, SN [id number]) with Dr. Sullivan, 02/16/2025.
Subjective: He is feeling better, he stood up today for the first time. He denies cp or sob.
Procedures:
CT surgery, 03/07/2025:
Procedure(s) Performed:
1. Ultrasound-guided access using Seldinger technique 2 the right common femoral artery and vein with percutaneous access using a 25 [place] femoral venous cannula
2. Redo sternotomy with extensive adhesiolysis (Modifier 22 for additional dissection time of 1 hour)
3. Direct aortic cannulation using ultrasound and Seldinger technique with a SAJAN guidance verifying true lumen access
4. Moderate hypothermic circulatory arrest with antegrade cerebral perfusion
5. Hemiarch ascending aortic replacement
6. Aortic root replacement using a 27 mm valved conduit
7. Ligation of left and right coronary ostia as they were dissected coronary bypass grafting to an acute marginal
8. Relocation of previous vein grafts onto this acute marginal vein graft
9. Placement of temporary atrial ventricular pacing wires
10. Transesophageal echocardiography
11. Temporary chest packing, open chest.
Impella Placement, 03/08/2025:
Procedure(s) Performed:
1. The temporary dressing over top of the open chest was removed
2. Placement of atrial pacing wires
3. Anastomosis of a 10 mm straight tube graft off of the ascending aortic graft, graft to graft anastomosis
4. Graft tunneled to the left supra clavicular region between the strap muscles
5. Placement of a 5.5 direct aortic Impella LVAD
6. Chest closure in usual fashion
TTE, 03/08/2025:
SUMMARY
1. TDS.
2. In limited views, left ventricle appears normal sized with severely reduced systolic function. Left ventricle ejection fraction is 25-30% by visual estimation. Global hypokinesis. S/p Impella 5.5 insertion which appears to be appropriately
placed.
3. In limited views right ventricle appears normal sized with mildly reduced systolic function. Right ventricle does appear to expand in diastole.
4. Limited valvular interrogation.
5. Compared to SAJAN earlier in day, overall, no significant change.
Bedside Rexploration, 03/08/2025:
Procedure: Emergency bedside reopening of chest and the loculation of clot ligation of IAN which was the bleeding source, repacking with 1 vaginal pack and Kerlix and replacement of new chest tubes
CT surgery re-exploration, 03/09/2025 (morning):
PROCEDURES:
1. Mediastinal reexploration/irrigation and removal of packing.
2. Repositioning of proximal course of greater saphenous vein graft
with several 6-0 Prolene sutures (placed/subsequently removed).
3. Placement of 6 mm ringed PTFE graft around proximal segment of
greater saphenous vein graft .
4. Replacement of new mediastinal packing (1 vaginal pack and
partial roll of Kerlix; syringe based sternal separation).
5. Reexploration with replacement of new open chest dressing.
CT surgery re-exploration, 03/09/2025 (afternoon):
Procedure(s) Performed:
1. Reopening of temporary chest coverage.
2. Ligation of IAN.
3. Coronary artery bypass grafting x 1 (Aortic Graft to RSVG to RSVG - T-graft).
4. Open vein harvest of the left thigh.
5. Transesophageal echocardiography.
6. Repacking of chest and placement of temporary dressing.
Physical Exam
Vital Signs/Labs
Vital Signs
Temp Pulse Resp BP Pulse Ox
97.6 F 77 16 118/71 94
04/11/25 07:48 04/11/25 07:48 04/11/25 07:48 04/11/25 07:48 04/11/25 07:48
04/10/25 04/11/25 04/12/25
06:59 06:59 06:59
Actual Weight 90.7 kg 89.7 kg
04/11/25 03:21
04/11/25 03:21
PT 17.1 Sec (11.4-14.6) H 04/03/25 14:06
INR 1.36 04/03/25 14:06
APTT 37.3 Sec (23.4-35.0) H 04/03/25 14:06
Magnesium 1.8 mg/dl (1.6-2.3) 04/11/25 03:21
Triglycerides 67 mg/dl (10-149) 04/06/25 03:34
Physical Exam
Constitutional: No acute distress
EENT: Anicteric
Cardiovascular: Rhythm/rate is irregular
Respiratory: Wheeze Absent and Rhonchi Absent
GI: Soft and Non tender
Neuro/Psych: Alert
Other: Other
Bilateral lower extremity edema
Data Reviewed
-
Date of Service: April 11, 2025
Medical Decision Making: Reviewed Test Results
Echo: Report Reviewed by me
Medical Tests (PFT, Pathology etc): Report Reviewed by me
Labs: Labs Reviewed by me
[2025-04-11] MEDS: KLOR-CON PO (09:52)
[2025-04-11] MEDS: VITAMIN C 500 MG PO (10:32)
--- NOTE | 2025-04-11 11:24 | CM ---
Chart reviewed. Patient is an assist of ADLS, recently discharged from [facility] to [facility], prior to that patient was independent of ADLS, lives with is a 2 STH, 1 RAI, ambulates a SPC. PT evaluation recommending Acute Rehab.
Referral sent to [facility] and accepted. Patient will need an insurance authorization when medically stable for discharge to [facility]. CM to follow
--- NOTE | 2025-04-11 12:45 | PTCARENOTE ---
Pt OOB to chair - assist x 2 using walker. Able to take a few steps before getting weak and had to be assisted to chair.
[2025-04-11] MEDS: BUMEX 2 MG PO ×2 (17:00→22:29)
[2025-04-11] MEDS: LIPITOR 40 MG PO (18:00)
--- NOTE | 2025-04-11 20:00 | PTCARENOTE ---
report received from previous RN, walking rounds done. pt AAOx4 but forgetful at times. VSS. AFIB, HR 80s. +peripheral pulses. B/L breath sounds present, POX 98% on room air. IS encouraged. bowel sounds present. male external catheter in place, pt
voiding CYU. PIV intact and patent. all surgical sites stable. turning/repositioning pt Q2H and as needed. see worklist for full assessment, VS, and interventions.
[2025-04-11] MEDS: KLOR-CON 40 MEQ PO (20:26)
[2025-04-11 21:09] LABS: Blood Urea Nitrogen 32 mg/dl (9-20); Calcium 8.4 mg/dl (8.4-10.2); Chloride 95 mmol/L (98-107); Estimated Creatinine Clearance 64 ml/min; Glucose 109 mg/dl (70-99); Potassium 3.5 mmol/L (3.5-5.1); Sodium 131 mmol/L (135-145); eGFR > 60.00
[2025-04-11 21:18] LABS: Carbon Dioxide 35 mmol/L (22-30)
[2025-04-11] MEDS: FLOMAX 0.4 MG PO (22:29)
[2025-04-12] VITALS (10 sets, daily range): BP systolic 104–133; BP diastolic 64–101; PULSE 73–77; O2SAT 95; BMI 25.7
[2025-04-12] MEDS: STERILE WATER FOR INJECTION 10 ML IV ×4 (02:55→19:27)
[2025-04-12] MEDS: MAXIPIME 1000 MG IV ×4 (02:55→19:26)
--- NOTE | 2025-04-12 03:15 | PTCARENOTE ---
no changes in assessment, VSS. AFIB 80s. POX 95-98% on room air. AM labs drawn and sent. turning/repositioning pt Q2H and as needed.
[2025-04-12 03:27] LABS: Hematocrit 25.4 % (39.0-52.0); Hemoglobin 8.0 g/dL (13.0-18.0); Mean Corp Hgb Conc. 31.5 g/dL (33.0-37.0); Mean Corpuscular Volume 99.2 fL (80.0-94.0); Platelet Count 284 10^3/uL (130-400); Red Cell Dist. Width 18.7 % (11.5-14.5)
--- NOTE | 2025-04-12 03:34 | W.PN.CT ---
Today's Communication / Plan
-
Plan:
-No major issues overnight. Hemodynamically and neurologically intact
-On Eliquis for PAF, NSR overnight. Tolerating transition of Lopressor to Toprol XL given CM/CHF
-Postop urinary retention S/p adams reinsertion on 04/06 and d/c'd again on04/09. Started on Flomax, check PVR
-BP has been soft postop, but now improved, Midodrine placed on PRN
-Nocturnal tube feeds discontinued on 04/10 as pt now tolerating regular diet with IDDSI-6 soft/bite size diet
-On Cefepime for suspected PNA, afebrile, wbc 13.7
-Encourage use of IS, currently on RA
-Will replete K+
-H/h stable @ 8.0/25.4, was 7.5/23.9 yesterday
-Monitor hyponatremia, 133 was 128 yesterday. Cont. diuresis, fluid restriction
-Hypercapnia noted, will diurese with Diamox
-OOB into chair/Ambulate/PT/OT/SP following
-[facility] placement today
Assessment / Plan
-
Impression:
-Aortic dissection, s/p ascending aorta replacement and CABG x 03/07/25, pod #36
-Acute respiratory failure with hypercapnia
-Acute systolic CHF
-EF 25-30% on TTE 03/08/25, improved to 30-35%
-b/l pleural effusions, increased on L- R CT dcd 04/06 (not draining)
-Cardiogenic shock requiring pressors
-IRON (creatinine on admission 1.3)- resolved
-hypertension now with hypotension due to shock
-Leukocytosis - Cefepime started 04/05
-Hypokalemia- repleted
-Urinary retention - s/p Adams placement on 04/06
-Confusion/sundowning
-[place] shaped opacity in the right midlung likely represents a pseudotumor with accompanying small right pleural effusion.
-Postop anemia 7.6- got 1 pRBC on 04/07
Echo 03/28/25:
1. Technically difficult study.
2. Moderate to severely reduced left ventricular function estimated ejection fraction 30 to 35%.
3. LVH.
4. Mild aortic stenosis suspected. Peak gradient 17 mmHg and mean gradient 8 mmHg.
5. Echodensity in the descending thoracic aorta consistent with known history of aortic dissection.
6. Pleural effusion.
7. Compared to 03/08 25. [id number] study was technically limited. Previous study Impella was present and estimated EF 25-30%.
Discussed patient care with: Cardiology, Nursing and Respiratory Therapy
Subjective
-
Date of Service: April 12, 2025
Pt c/o mild incisional pain, otherwise feels well
Objective Data
-
Lab Results
04/12/25 03:02
PT 17.1 Sec (11.4-14.6) H 04/03/25 14:06
INR 1.36 04/03/25 14:06
APTT 37.3 Sec (23.4-35.0) H 04/03/25 14:06
Vital Signs
Vital Signs
Temp Pulse Resp BP Pulse Ox
98.0 F 87 18 103/64 98
04/11/25 20:00 04/11/25 22:00 04/11/25 20:00 04/11/25 20:00 04/11/25 20:00
CT Intake/Output/Weight
04/11/25 04/11/25 04/12/25
06:59 18:59 06:59
Intake Total 360 / 840 960 / 960
Output Total 1100 / 2550 1625 / 2425 800 / 2425
Balance -740 / -1710 -665 / -1465 -800 / -1465
SaO2: 98 (RA)
Physical Exam
-
General: Awake, Oriented and AOx3
Cardiovascular: Regular rate & rhythm, No Murmurs and No Rub
Respiratory: Decreased Breath Sounds (at bases, otherwise clear)
Sternum: Stable
Incision: Clean, Dry, Intact and Dressing Intact
Extremities: Edema +1
Data Reviewed
-
Lab Results: Results Reviewed
Medications: Active Meds Reviewed
Chest X-Ray: Report Reviewed and Image Reviewed
CT Scan: Report Reviewed and Image Reviewed
ECG: Report Reviewed and Image Reviewed
[2025-04-12 03:38] LABS: Blood Urea Nitrogen 31 mg/dl (9-20); Calcium 8.5 mg/dl (8.4-10.2); Carbon Dioxide 37 mmol/L (22-30); Chloride 98 mmol/L (98-107); Estimated Creatinine Clearance 70 ml/min; Glucose 85 mg/dl (70-99); Magnesium 2.2 mg/dl (1.6-2.3); Potassium 3.2 mmol/L (3.5-5.1); Sodium 133 mmol/L (135-145); eGFR > 60.00
[2025-04-12] MEDS: KCL ELIXIR 40 MEQ TUBE (03:48)
[2025-04-12] MEDS: SYNTHROID 150 MCG PO (06:17)
--- NOTE | 2025-04-12 08:00 | PTCARENOTE ---
pt received from previous RN, oriented, OOB in chair. A-fib on the monitor, HR 70-80s. SBP 100-110s. weakly palpable pedal pulses, palpable radial pulses. +2 LE edema. +1/+2, L>R. pt on RA, 95-96% POX. lungs diminished in bases. IS encouraged. pt
abdomen s/n, denies n/v. pt ate 100% of breakfast. PEG tube in place. voids via male purewick. surgical sites intact. 2x2 [address] site. sacral Mepilex in place. PIV. see worklist for VS, I&O, and assessment.
--- NOTE | 2025-04-12 08:38 | W.PN.CD ---
Addendum entered and electronically signed by Terrence Moore MD 04/12/25 08:45:
correction below. Taking PO and now on Metoprolol succinated ( Toprol XL) rather than metoprolol tartrate.
Original Note:
Today's Communication / Plan
-
Still with edema. Continue with diuresis
replace K
? accuracy of weight . negative 2 liters on I/O and weight is up
Monitor anemia and continue to assess nee for additional PRBC
Impression / Plan
-
Respiratory failure:
-now extubated and on NC
-bilateral pleural effusion L>R, IR unable to tap L effusion 04/05, R chest tube removed 04/06 (not draining)
-getting diuresed as tolerated with [id number] HFpEF (weight up, effusions, LE edema).
.
HFrEF/ICMO: [id number]
-Echo 03/28/25: Technically difficult study. Moderate to severely reduced left ventricular function estimated ejection fraction 30 to 35%. LVH. Status post aortic valve replacement. Mild aortic stenosis suspected. Peak gradient 17 mmHg and mean
gradient 8 mmHg. Echodensity in the descending thoracic aorta consistent with known history of aortic dissection. Pleural effusion.
- Diuresis with Bumex. ? accuracy of weight since 2 liters negative 04/11-04/12. Still with edema
-continue SGLT2I. He is on metoprolol tartrate (rather than succinate) since he is getting meds crushed to tube. Other GDMT limited by BP. Midocrine being used intermitttently
Aortic dissection:
-s/p CT surgery 03/07/25 with complex post op course as noted. Procedure details as below.
CAD:
-s/p CABG x 4, MV repair, TV repair, MAZE, and EVI exclusion with Dr. Sullivan (02/16/25).
-CABG anatomy has been altered due to compression/ischemia after dissection repair.
-The current anatomy is MAGANA to LAD, SVG from Ao graft to SVG to diagonal, sequential SVG Y-graft from diagonal graft to OM1 to LPL.
-on ASA, statin, BB
Anemia:
- 1U pRBC given 04/07. Hemoglobin back down to 7.5- 8.0 last 2 dasy . Consider additional PRBCs
- monitor closely
Atrial fibrillation
-Persistent
-Rate/rhythm control with amiodarone, s/p MAZE with Dr. Sullivan, 02/16/2025.
-CHADS2-Vasc = 5 (CHF, HTN, Age x2, vascular disease)
-Anti-thrombotic therapy with apixaban 5 mg BID, S/P LAAE (#40 AtriClip, SN [id number]) with Dr. Sullivan, 02/16/2025.
Subjective: He is feeling better, he stood up today for the first time. He denies cp or sob.
Procedures:
CT surgery, 03/07/2025:
Procedure(s) Performed:
1. Ultrasound-guided access using Seldinger technique 2 the right common femoral artery and vein with percutaneous access using a 25 [place] femoral venous cannula
2. Redo sternotomy with extensive adhesiolysis (Modifier 22 for additional dissection time of 1 hour)
3. Direct aortic cannulation using ultrasound and Seldinger technique with a SAJAN guidance verifying true lumen access
4. Moderate hypothermic circulatory arrest with antegrade cerebral perfusion
5. Hemiarch ascending aortic replacement
6. Aortic root replacement using a 27 mm valved conduit
7. Ligation of left and right coronary ostia as they were dissected coronary bypass grafting to an acute marginal
8. Relocation of previous vein grafts onto this acute marginal vein graft
9. Placement of temporary atrial ventricular pacing wires
10. Transesophageal echocardiography
11. Temporary chest packing, open chest.
Impella Placement, 03/08/2025:
Procedure(s) Performed:
1. The temporary dressing over top of the open chest was removed
2. Placement of atrial pacing wires
3. Anastomosis of a 10 mm straight tube graft off of the ascending aortic graft, graft to graft anastomosis
4. Graft tunneled to the left supra clavicular region between the strap muscles
5. Placement of a 5.5 direct aortic Impella LVAD
6. Chest closure in usual fashion
TTE, 03/08/2025:
SUMMARY
1. TDS.
2. In limited views, left ventricle appears normal sized with severely reduced systolic function. Left ventricle ejection fraction is 25-30% by visual estimation. Global hypokinesis. S/p Impella 5.5 insertion which appears to be appropriately
placed.
3. In limited views right ventricle appears normal sized with mildly reduced systolic function. Right ventricle does appear to expand in diastole.
4. Limited valvular interrogation.
5. Compared to SAJAN earlier in day, overall, no significant change.
Bedside Rexploration, 03/08/2025:
Procedure: Emergency bedside reopening of chest and the loculation of clot ligation of IAN which was the bleeding source, repacking with 1 vaginal pack and Kerlix and replacement of new chest tubes
CT surgery re-exploration, 03/09/2025 (morning):
PROCEDURES:
1. Mediastinal reexploration/irrigation and removal of packing.
2. Repositioning of proximal course of greater saphenous vein graft
with several 6-0 Prolene sutures (placed/subsequently removed).
3. Placement of 6 mm ringed PTFE graft around proximal segment of
greater saphenous vein graft .
4. Replacement of new mediastinal packing (1 vaginal pack and
partial roll of Kerlix; syringe based sternal separation).
5. Reexploration with replacement of new open chest dressing.
CT surgery re-exploration, 03/09/2025 (afternoon):
Procedure(s) Performed:
1. Reopening of temporary chest coverage.
2. Ligation of IAN.
3. Coronary artery bypass grafting x 1 (Aortic Graft to RSVG to RSVG - T-graft).
4. Open vein harvest of the left thigh.
5. Transesophageal echocardiography.
6. Repacking of chest and placement of temporary dressing.
Physical Exam
Vital Signs/Labs
Vital Signs
Temp Pulse Resp BP Pulse Ox
97.4 F 88 18 118/77 96
04/12/25 08:00 04/12/25 08:00 04/12/25 08:00 04/12/25 07:45 04/12/25 08:00
04/11/25 04/12/25 04/13/25
06:59 06:59 06:59
Actual Weight 89.7 kg 91.7 kg
04/12/25 03:02
04/12/25 03:02
PT 17.1 Sec (11.4-14.6) H 04/03/25 14:06
INR 1.36 04/03/25 14:06
APTT 37.3 Sec (23.4-35.0) H 04/03/25 14:06
Magnesium 2.2 mg/dl (1.6-2.3) 04/12/25 03:02
Triglycerides 67 mg/dl (10-149) 04/06/25 03:34
Physical Exam
Constitutional: No acute distress
Cardiovascular: Rhythm & rate is regular
Respiratory: Respiratory effort normal
GI: Soft and Non tender
Neuro/Psych: Alert and Oriented
Data Reviewed
-
Date of Service: April 12, 2025
Medical Decision Making: Reviewed Test Results
Echo: Report Reviewed by me
Medical Tests (PFT, Pathology etc): Report Reviewed by me
Labs: Labs Reviewed by me
[2025-04-12] MEDS: BUMEX 2 MG PO ×3 (09:14→21:18)
[2025-04-12] MEDS: KLOR-CON 40 MEQ PO ×4 (09:14→21:18)
[2025-04-12] MEDS: ELIQUIS 5 MG PO ×2 (09:14→19:26)
[2025-04-12] MEDS: VITAMIN C 500 MG PO (09:14)
[2025-04-12] MEDS: FEOSOL 325 MG PO (09:14)
[2025-04-12] MEDS: MAGNESIUM OXIDE 400 MG PO ×2 (09:14→19:26)
[2025-04-12] MEDS: PACERONE 200 MG PO (09:14)
[2025-04-12] MEDS: KLOR-CON PO (09:15)
[2025-04-12] MEDS: FARXIGA 10 MG PO (09:15)
[2025-04-12] MEDS: LOW STRENGTH ASPIRIN 81 MG PO (09:16)
[2025-04-12] MEDS: TOPROL XL 25 MG PO ×2 (09:24→19:26)
[2025-04-12] MEDS: PROTONIX 40 MG PO (10:36)
--- NOTE | 2025-04-12 12:00 | PTCARENOTE ---
pt VSS, OOB in chair. tolerating diet. no c/o pain. EKG performed, given to [employer]. pt able to stand from chair w/ heavy 2 person assist w/ RW for ~1min. IS encouraged. voiding via purewick.
--- NOTE | 2025-04-12 12:24 | CM ---
Chart reviewed. Patient is an assist of ADLS, recently discharged from [facility] to [facility], prior to that patient was independent of ADLS, lives with is a 2 STH, 1 RAI, ambulates a SPC. PT evaluation recommending Acute Rehab. Patient
medically stable for discharge. Insurance Authorization faxed to [phone]. Waiting on insurance verification. CM to follow
--- NOTE | 2025-04-12 16:00 | PTCARENOTE ---
pt VSS, no changes in assessment. pt placed back to bed via Cierra lift, attempted to stand w/ 2 person assist, unable. sacral dressing changed, site red/blanchable, new Mepilex applied. Calazime cream applied to buttocks. Male purewick changed.
heels elevated off bed.
[2025-04-12] MEDS: LIPITOR 40 MG PO (18:09)
--- NOTE | 2025-04-12 20:00 | PTCARENOTE ---
report received from previous RN, walking rounds done. pt AAOx4 but forgetful at times. pt denies any pain. VSS. AFIB on monitor, HR 80s. +peripheral pulses. B/L breath sounds present, POX 97% on room air. IS encouraged. bowel sounds present. male
external catheter in place, pt voiding CYU. PIV intact and patent. all surgical sites stable. turning/repositioning pt Q2H and as needed. see worklist for full assessment, VS, and interventions.
[2025-04-12] MEDS: FLOMAX 0.4 MG PO (21:18)
[2025-04-13 00:13] VITALS: BP 103/69
--- NOTE | 2025-04-13 00:22 | W.PN.CT ---
Today's Communication / Plan
-
Plan:
-No major issues overnight. Hemodynamically and neurologically intact
-On Eliquis for PAF, NSR overnight. Tolerating transition of Lopressor to Toprol XL given CM/CHF
-Postop urinary retention S/p adams reinsertion on 04/06 and d/c'd again on 04/09. Started on Flomax, check PVR
-BP has been soft postop, but now improved, Midodrine placed on PRN
-Nocturnal tube feeds discontinued on 04/10 as pt now tolerating regular diet with IDDSI-6 soft/bite size diet
-On Cefepime for suspected PNA, afebrile, wbc 12.0
-Encourage use of IS, currently on RA
-Will replete K+ and ca++
-Monitor h/h 7.5/24.2, was 8.0/25.4 yesterday
-Monitor hyponatremia, 131was 133 yesterday. Cont. diuresis, fluid restriction
-Hypercapnia is improving
-OOB into chair/Ambulate/PT/OT/SP following
-[facility] placement today
Assessment / Plan
-
Impression:
-Aortic dissection, s/p ascending aorta replacement and CABG x 03/07/25, pod #[id number]
-Acute respiratory failure with hypercapnia
-Acute systolic CHF
-EF 25-30% on TTE 03/08/25, improved to 30-35%
-b/l pleural effusions, increased on L- R CT dcd 04/06 (not draining)
-Cardiogenic shock requiring pressors
-IRON (creatinine on admission 1.3)- resolved
-hypertension now with hypotension due to shock
-Leukocytosis - Cefepime started 04/05
-Hypokalemia- repleted
-Urinary retention - s/p Adams placement on 04/06
-Confusion/sundowning
-Great [place] shaped opacity in the right midlung likely represents a pseudotumor with accompanying small right pleural effusion.
-Postop anemia 7.6- got 1 pRBC on 04/07
Echo 03/28/25:
1. Technically difficult study.
2. Moderate to severely reduced left ventricular function estimated ejection fraction 30 to 35%.
3. LVH.
4. Mild aortic stenosis suspected. Peak gradient 17 mmHg and mean gradient 8 mmHg.
5. Echodensity in the descending thoracic aorta consistent with known history of aortic dissection.
6. Pleural effusion.
7. Compared to 03/08 25. [id number] study was technically limited. Previous study Impella was present and estimated EF 25-30%.
Discussed patient care with: Cardiology, Nursing, Respiratory Therapy, Pharmacy and Care Team
Subjective
-
Date of Service: April 13, 2025
Pt c/o mild incisional pain, otherwise feels well, in good spirits
Objective Data
-
PT 17.1 Sec (11.4-14.6) H 04/03/25 14:06
INR 1.36 04/03/25 14:06
APTT 37.3 Sec (23.4-35.0) H 04/03/25 14:06
Vital Signs
Vital Signs
Temp Pulse Resp BP Pulse Ox
97.8 F 87 18 114/79 97
04/12/25 20:19 04/12/25 20:19 04/12/25 20:19 04/12/25 20:19 04/12/25 20:19
CT Intake/Output/Weight
04/12/25 04/12/25 04/13/25
06:59 18:59 06:59
Intake Total 150 / 1110 700 / 700
Output Total 1750 / 3375 1750 / 2200 450 / 2200
Balance -1600 / -2265 -1050 / -1500 -450 / -1500
SaO2: 97 (RA)
Physical Exam
-
General: Awake, Oriented and AOx3
Cardiovascular: Regular rate & rhythm, No Murmurs, No Rub and No Gallop
Respiratory: Decreased Breath Sounds (at bases, otherwise clear)
Sternum: Stable
Incision: Clean, Dry, Intact and Dressing Intact
Extremities: Edema +1
Data Reviewed
-
Lab Results: Results Reviewed
Medications: Active Meds Reviewed
Chest X-Ray: Report Reviewed and Image Reviewed
ECG: Report Reviewed and Image Reviewed
[2025-04-13] MEDS: MAXIPIME 1000 MG IV ×2 (02:38→08:44)
[2025-04-13] MEDS: STERILE WATER FOR INJECTION 10 ML IV ×2 (02:39→08:45)
[2025-04-13 03:54] VITALS: BP 97/67
--- NOTE | 2025-04-13 04:00 | PTCARENOTE ---
no changes in assessment, VSS. AFIB 70s-80s. POX 94-97% on room air. purewick catheter remains in place, pt voiding CYU. AM labs drawn and sent.
[2025-04-13 04:07] VITALS: BMI 25.7
[2025-04-13 04:20] LABS: Hematocrit 24.2 % (39.0-52.0); Hemoglobin 7.5 g/dL (13.0-18.0); Mean Corp Hgb Conc. 31.0 g/dL (33.0-37.0); Mean Corpuscular Volume 98.8 fL (80.0-94.0); Platelet Count 270 10^3/uL (130-400); Red Cell Dist. Width 18.7 % (11.5-14.5)
[2025-04-13 04:31] LABS: Blood Urea Nitrogen 29 mg/dl (9-20); Calcium 7.8 mg/dl (8.4-10.2); Chloride 98 mmol/L (98-107); Estimated Creatinine Clearance 78 ml/min; Glucose 75 mg/dl (70-99); Magnesium 2.2 mg/dl (1.6-2.3); Potassium 3.6 mmol/L (3.5-5.1); Sodium 131 mmol/L (135-145); eGFR > 60.00
[2025-04-13 04:39] LABS: Carbon Dioxide 35 mmol/L (22-30)
[2025-04-13] MEDS: SYNTHROID 150 MCG PO (06:26)
[2025-04-13] MEDS: KCL ELIXIR 40 MEQ TUBE (06:26)
[2025-04-13] MEDS: CALCIUM GLUCONATE 130 MG IV (06:34)
[2025-04-13 07:21] VITALS: BP 100/67
--- NOTE | 2025-04-13 07:54 | PTCARENOTE ---
Received pt from light bulb tester RN at 0700. Pt AOx4, VSS, afib HR 70-80s, SBP 90-110s, Palpable pulses, +1 edema LLE, +2 edema BLE. On RA, SPO2 >94%, clr dim lung sounds. Normoactive bowel sounds, male purwick in place, geovanna, clr output. Surgical
sites KRYSTYNA, approximated. BLE graft sites ecchymotic. MASD on heide and sacral area, old chest tube sites WHITE KID BUFFER, scattered ecchymosis and scabs on extremities. PIV x1. Plan to tx to [facility]. See flowsheets for further documentation.
[2025-04-13] MEDS: PROTONIX 40 MG PO (08:43)
[2025-04-13] MEDS: TOPROL XL 25 MG PO (08:43)
[2025-04-13] MEDS: PACERONE 200 MG PO (08:43)
[2025-04-13] MEDS: FARXIGA 10 MG PO (08:43)
[2025-04-13] MEDS: BUMEX 2 MG PO (08:44)
[2025-04-13] MEDS: VITAMIN C 500 MG PO (08:44)
[2025-04-13] MEDS: ELIQUIS 5 MG PO (08:44)
[2025-04-13] MEDS: MAGNESIUM OXIDE 400 MG PO (08:44)
[2025-04-13] MEDS: FEOSOL 325 MG PO (08:44)
[2025-04-13] MEDS: LOW STRENGTH ASPIRIN 81 MG PO (08:45)
--- NOTE | 2025-04-13 10:11 | W.DCSUMMARY ---
Discharge Summary
Discharge Data
Date of Admission: 04/03/25
Date of Discharge: 04/13/25
-
Pending Results: No
Hospital Course
Primary care physician: Shimon Ponce
Outpatient route deliverer: Terrence Moore
Inpatient consultants: [facility] Cardiology
Procedures:
1. none
Primary Diagnosis:
1. acute hypoxic respiratory failure requiring intubation (03/31-04/03)
Secondary Diagnoses:
1. Hypertension
2. Hyperlipidemia
3 Hx Mitral valve insufficiency status post repair
4. Hx Tricuspid insufficiency status post repair
5. hx Coronary artery disease status post CABG
6. Hx Type A dissection s/p repair
7. urinary retention s/p Buenrostro insertion 04/05
8. Hx dysphagia s/p PEG
9. Persistent atrial fibrillation o Eliquis/ASA
10. Acute HFrEF (EF 30-35%)
11. Hypothyroidism
12. Ambulatory dysfunction/deconditioning
13. Hypokalemia
14. Hyponatremia
HPI: Ramos Law is a 74 year old male well known to CT surgery from prior CABGx4, MV repair, TV repair, MAZE, LAAE by Dr. Sullivan on 02/16/25 and discharged on POD#6. Patient was readmitted to [facility] on 03/07/25 with Type A dissection
requiring emergent Redo sternotomy Hemiarch ascending aortic replacement/ Aortic root replacement using a 27 mm valved conduit and ligation of left and right coronary ostia as they were dissected, coronary bypass grafting to an acute
marginal/Relocation of previous vein grafts onto this acute marginal vein graft,Temporary chest packing by Dr. Sullivan. Patient experienced a complicated post op course requiring washout with antibiotic solution inspection of all surgical sites and
closure with wires and plates on 03/11/25, endotracheal bronchoscopy with lavage on 03/07/25, bedside Impella wean/removal 03/12/25, bronchoscopy 03/12/25, left thoracentesis 03/22, PEG for dysphagia 03/22 and right thoracentesis 03/23. Patient was
discharged to [facility] on 03/29/25. On 03/31/25, a worsening right sided pleural effusion was noted and thoracentesis planned, however, patient developed AMS with acute hypercarbia. Patient was transferred to [facility] where
he required intubation and underwent pigtail placement in right hemithorax which liberated >2000ml of serous fluid. He has been unable to be weaned from mechanical ventilation and pressors and it was decided to transfer the patient back to
[facility].
Hospital course: Due to insurance delay, patient was transferred back to CVICU on 04/03/2025. He was quickly weaned and extubated. He was evaluated by speech and Osmolite tube feeds were continued. Patient underwent a video barium swallow on
04/05/2025 and was graduated to thin liquids. Cefepime was initiated for suspected pneumonia and he completed a 7 day course. No cultures were sent. Patient required Buenrostro reinsertion on 04/06/2025 for retention after several straight
catheterizations performed. Patient continued to gain strength with daily PT/OT therapy. Appetite improved. Patient continues to diurese daily with Bumex. Peripheral edema has decreased with weight 85.9 kg. He also continues on Eliquis and low
dose ASA for persistent atrial fibrillation and primary route deliverer to consider cardioversion in 1 month. Oral Bumex 2mg BID and Tubigrips to continue for mild (+1-2) lower extremity peripheral edema. labs on day of discharge: WBC 12.0, Hemoglobin
7.5, Plts 270k, sodium 131, potassium 3.6. Patient accepted to [facility] on 04/13/25.
Home medication changes:
Pantoprazole for GI protection on Eliquis; continue iron for anemia
Discharge Plan
-
Patient Disposition: Acute Rehab Facility
Discharge Diagnosis/Procedures: pleural effusion
Condition: Fair
Diet: Low Cholesterol and Restrict fluids to 64 oz
Activity: As tolerated
Driving Restrictions: No driving
Bathing Restrictions: OK to Shower
Blood Work: BMP in 5 days
Other Services: Cardiac Rehab
Wound Care: Tubi publicity consultant to lower extremities
Specialty Instructions: Weigh Daily- Call MD for wt gain/loss 3 lbs overnight/5 lbs in 1 week
Activity Restrictions/Additional Instructions:
Wound Care Instructions
Sacrum-clean with saline, silicone border foam, change q 3 days and prn loosened dressing. If foam ineffective, apply zinc barrier ointment (i.e. Calazime) TID instead.
L anterior chest old chest tube site wound-clean with saline, or soap and water, cover with dry gauze dressing, change daily and prn drainage.
L flank scabbed dried blister-Protective foam dressing, change q 3 days and prn loosened dressing.
Knee high Tubigrip as tolerated (cover any open/weeping incision area with gauze pad under Tubigrip)(remove Tubigrip q hs). Reapply q am.
Air mattress
Turning schedule
Elevate heels off bed with pillow/s.
Pressure redistributing chair cushion (i.e. Air, Roho).
Follow up with CT surgeon.
Follow up at wound care center if needed, call for an appointment.
ACTIVITY:
-No strenuous activity: no heavy lifting, pushing, pulling anything over 15 pounds for one month
-continue to use stairs as tolerated
DRIVING RESTRICTIONS:
-No driving for one month or until approved by your surgeon
WOUND CARE:
-Shower daily. Use soap & water.
-No lotions, creams or powders on incision area.
DIET:
-continue a low fat/low cholesterol diet.
-IF you are diabetic, continue carb controlled diet.
CARDIAC REHAB:
-Please make appointment to start in 5-6 weeks with your local hospital program. (See Cardiac Rehabilitation Discharge Booklet).
SPECIALTY INSTRUCTIONS:
-Weigh yourself daily. Call your physician for any weight gain/loss of 3 lbs overnight or 5 lbs in one week.
-REPORT any clicking noise or uneven appearance of your sternum to your surgeon immediately.
-If you smoke, you are instructed to quit. The [place] smoking hotline phone number is [phone]
Referrals:
[facility] [Other]
UNKNOWN,NO INTERVIEW [Family Provider]
Bianca Meza CRNP [Specified Professional Personl, Cardiac Surgery] - 05/05/25 11:30 am
Additional Discharge Medication Instructions: Pantoprazole for GI protection on Eliquis; continue iron for anemia
Prescriptions:
New
midodrine 5 mg Tablet
10 mg PO TID@0800,1300,1800 PRN (Reason: sbp<100) Qty: 0 0RF
tamsulosin 0.4 mg Capsule
0.4 mg PO HS Qty: 0 0RF
ferrous sulfate [FeroSul] 325 mg (65 mg iron) Tablet
325 mg PO DAILY Qty: 30 0RF
acetaminophen 325 mg Tablet
650 mg PO Q4HPRN PRN (Reason: pain) Qty: 1 0RF
metoprolol succinate 25 mg Tablet Extended Release 24 Hr
25 mg PO BID Qty: 0 0RF
potassium chloride 20 mEq Packet
40 meq PO BID Qty: 0 0RF
magnesium oxide 400 mg (241.3 mg magnesium) Tablet
400 mg PO BID Qty: 0 0RF
bumetanide 1 mg Tablet
2 mg PO BID Qty: 0 0RF
pantoprazole 40 mg Tablet,Delayed Release (Dr/Ec)
40 mg PO DAILY Qty: 1 0RF
ascorbic acid (vitamin C) [Vitamin C] 500 mg Tablet
500 mg PO DAILY Qty: 0 0RF
Continued
dapagliflozin propanediol 10 mg Tablet
10 mg PO DAILY Qty: 60 0RF
aspirin 81 mg Tablet,Chewable
81 mg feeding tube DAILY Qty: 0 0RF
magnesium hydroxide [Milk of Magnesia] 400 mg/5 mL Suspension
30 ml feeding tube BIDPRN PRN (Reason: if no BM in three days) Qty: 3000 2RF
bisacodyl 10 mg Suppository
10 mg OR DAILYPRN PRN (Reason: constipation ) Qty: 50 0RF
Changed
atorvastatin 40 mg Tablet
40 mg PO QPM Qty: 30 2RF
amiodarone [Pacerone] 200 mg Tablet
200 mg PO DAILY AT 0700 Qty: 30 0RF
levothyroxine 150 mcg Tablet
150 mcg PO DAILY@0600 Qty: 30 2RF
Eliquis 5 mg Tablet
5 mg PO BID Qty: 60 2RF
Discontinued
acetaminophen 325 mg Tablet
650 mg feeding tube Q4HPRN PRN (Reason: mild pain,headache,temp >101F ) Qty: 0 0RF
lansoprazole 30 mg Tablet,Disintegrat, Delay Rel
30 mg feeding tube DAILY Qty: 30 2RF
sennosides [Abida-lorena] 8.6 mg Tablet
8.6 mg feeding tube Q12 Qty: 60 2RF
bumetanide 0.25 mg/mL Solution
1 mg IV DAILY Qty: 100 0RF
metoprolol tartrate 25 mg Tablet
50 mg feeding tube BID Qty: 30 0RF
potassium chloride 20 mEq/15 mL Liquid
20 meq feeding tube DAILY Qty: 0 0RF
Discharge Orders:
Discharge Patient (As Directed); Ordered 04/13/25
Ordered By: Amanda Brooks
Care Plan Goals
Care Plan Goals:
Problem: Readiness for enhanced knowledge related to diagnosis and treatment plan
Goal: Understand your diagnosis and treatment plan needs, including medications if applicable.
Instructions: Know your diagnosis, underlying causes and treatment plan options, including medications if applicable. Consult with your health care team to learn about your diagnosis and treatment plan, including medications if applicable.
Discharge Date and Time
Print Language: SYRIAN
--- NOTE | 2025-04-13 10:20 | W.PN.CD ---
Today's Communication / Plan
-
Agree with care
Add more GDMT for his HFrEF as he improves
If still in AFib consider cardioversion in 1 month
Impression / Plan
-
S/p respiratory failure: muche improved
HFrEF:
- Improved
- Diuresis
- Move to more GDMT as improves
Aortic dissection:
-s/p CT surgery 03/07/25 with complex post op course as noted. Procedure details as below.
CAD:
-s/p CABG x 4, MV repair, TV repair, MAZE, and EVI exclusion with Dr. Sullivan (02/16/25).
-CABG anatomy has been altered due to compression/ischemia after dissection repair.
-The current anatomy is MAGANA to LAD, SVG from Ao graft to SVG to diagonal, sequential SVG Y-graft from diagonal graft to OM1 to LPL.
-on ASA, statin, BB
Anemia, many transfusions during the last 2 admits
Atrial fibrillation
-Persistent
-Rate/rhythm control with amiodarone, s/p MAZE with Dr. Sullivan, 02/16/2025. => if still in AFib consider cardioversion in 1 month
-CHADS2-Vasc = 5 (CHF, HTN, Age x2, vascular disease)
-Anti-thrombotic therapy with apixaban 5 mg BID, S/P LAAE (#40 AtriClip, SN [id number]) with Dr. Sullivan, 02/16/2025.
Subjective: He is feeling better, he stood up today for the first time. He denies cp or sob.
Echo 03/28/25: Technically difficult study. Moderate to severely reduced left ventricular function estimated ejection fraction 30 to 35%. LVH. Status post aortic valve replacement. Mild aortic stenosis suspected. Peak gradient 17 mmHg and mean
gradient 8 mmHg. Echodensity in the descending thoracic aorta consistent with known history of aortic dissection. Pleural effusion.
CT surgery, 03/07/2025:
Procedure(s) Performed:
1. Ultrasound-guided access using Seldinger technique 2 the right common femoral artery and vein with percutaneous access using a 25 German femoral venous cannula
2. Redo sternotomy with extensive adhesiolysis (Modifier 22 for additional dissection time of 1 hour)
3. Direct aortic cannulation using ultrasound and Seldinger technique with a SAJAN guidance verifying true lumen access
4. Moderate hypothermic circulatory arrest with antegrade cerebral perfusion
5. Hemiarch ascending aortic replacement
6. Aortic root replacement using a 27 mm valved conduit
7. Ligation of left and right coronary ostia as they were dissected coronary bypass grafting to an acute marginal
8. Relocation of previous vein grafts onto this acute marginal vein graft
9. Placement of temporary atrial ventricular pacing wires
10. Transesophageal echocardiography
11. Temporary chest packing, open chest.
Impella Placement, 03/08/2025:
Procedure(s) Performed:
1. The temporary dressing over top of the open chest was removed
2. Placement of atrial pacing wires
3. Anastomosis of a 10 mm straight tube graft off of the ascending aortic graft, graft to graft anastomosis
4. Graft tunneled to the left supra clavicular region between the strap muscles
5. Placement of a 5.5 direct aortic Impella LVAD
6. Chest closure in usual fashion
TTE, 03/08/2025:
SUMMARY
1. TDS.
2. In limited views, left ventricle appears normal sized with severely reduced systolic function. Left ventricle ejection fraction is 25-30% by visual estimation. Global hypokinesis. S/p Impella 5.5 insertion which appears to be appropriately
placed.
3. In limited views right ventricle appears normal sized with mildly reduced systolic function. Right ventricle does appear to expand in diastole.
4. Limited valvular interrogation.
5. Compared to SAJAN earlier in day, overall, no significant change.
Bedside Rexploration, 03/08/2025:
Procedure: Emergency bedside reopening of chest and the loculation of clot ligation of IAN which was the bleeding source, repacking with 1 vaginal pack and Kerlix and replacement of new chest tubes
CT surgery re-exploration, 03/09/2025 (morning):
PROCEDURES:
1. Mediastinal reexploration/irrigation and removal of packing.
2. Repositioning of proximal course of greater saphenous vein graft
with several 6-0 Prolene sutures (placed/subsequently removed).
3. Placement of 6 mm ringed PTFE graft around proximal segment of
greater saphenous vein graft .
4. Replacement of new mediastinal packing (1 vaginal pack and
partial roll of Kerlix; syringe based sternal separation).
5. Reexploration with replacement of new open chest dressing.
CT surgery re-exploration, 03/09/2025 (afternoon):
Procedure(s) Performed:
1. Reopening of temporary chest coverage.
2. Ligation of IAN.
3. Coronary artery bypass grafting x 1 (Aortic Graft to RSVG to RSVG - T-graft).
4. Open vein harvest of the left thigh.
5. Transesophageal echocardiography.
6. Repacking of chest and placement of temporary dressing.
Physical Exam
Vital Signs/Labs
Vital Signs
Temp Pulse Resp BP Pulse Ox
97.7 F 88 16 100/67 96
04/13/25 08:00 04/13/25 10:00 04/13/25 08:00 04/13/25 07:21 04/13/25 09:32
04/12/25 04/13/25 04/14/25
06:59 06:59 06:59
Actual Weight 85.8 kg 85.9 kg
04/13/25 03:50
04/13/25 03:50
PT 17.1 Sec (11.4-14.6) H 04/03/25 14:06
INR 1.36 04/03/25 14:06
APTT 37.3 Sec (23.4-35.0) H 04/03/25 14:06
Magnesium 2.2 mg/dl (1.6-2.3) 04/13/25 03:50
Triglycerides 67 mg/dl (10-149) 04/06/25 03:34
Physical Exam
Constitutional: No acute distress
Cardiovascular: Rhythm/rate is irregular, Pedal edema present (but much improved from earlier in hosp stay), S1S2 is normal and Rub absent
Respiratory: Respiratory effort normal and Lungs clear to auscul.
GI: Soft and Distention absent
Neuro/Psych: AO x 3
Data Reviewed
-
Date of Service: April 13, 2025
[2025-04-13] MEDS: KLOR-CON 40 MEQ PO (10:22)
[2025-04-13 11:29] VITALS: BP 105/87
--- NOTE | 2025-04-13 11:32 | PTCARENOTE ---
Pt reassessment unchanged. Afib Hr 70s, VSS. OOB to the chair, plan to tx to [facility] later today.
--- NOTE | 2025-04-13 11:57 | CM ---
Acute Rehab insurance approval 04/13-04/20. NRD 04/20. CHILD CARE EDUCATION COORDINATORSEBASTIAN Kelley [phone] [id number], fax [phone]. Patient approved to go to [facility].
--- NOTE | 2025-04-13 12:18 | WOUNDNOTE ---
[facility] RN note: Patient going to [facility] after lunch today. R sacral/buttocks overall less open with small dermal opening R sacral/buttocks suspect r/t friction. Sacral shaped silicone border foam maintained. Patient sitting on a bariatric air chair
cushion with a regular size air chair cushion on top. +1-2 LE edema. R medial calf incision with small superficial opening with yellow fibrin. +Pedal pulses. Patient repositioned in chair with help from SEBASTIAN Flores. Patient has a good appetite. Skin on
heels intact. Updated CT DONKEY DOCTOR Amanda Brooks re: LE edema, who approved knee high Tubigrip (cover any open/weeping incision with gauze pad under Tubigrip)(remove Tubigrip q hs). t/c SPD and ordered size F Tubigrip. Updated SEBASTIAN Flores. Discharge
instructions updated.
--- NOTE | 2025-04-13 12:20 | WOUNDNOTE ---
[facility] RN note: Patient going to [facility] after lunch today. Sacral/buttocks overall less open with small dermal opening R sacral/buttocks suspect r/t friction. Sacral shaped silicone border foam maintained. Patient sitting on a bariatric air chair
cushion with a regular size air chair cushion on top. +1-2 LE edema. R medial calf incision with small superficial opening with yellow fibrin, no drainage noted. +Pedal pulses. Patient repositioned in chair with help from SEBASTIAN Flores. Patient has a
good appetite. Skin on heels intact. Updated CT HEAD SAWYER Amanda Brooks re: LE edema, who approved knee high Tubigrip (cover any open/weeping incision with gauze pad under Tubigrip)(remove Tubigrip q hs). t/c SPD and ordered size F Tubigrip.
Updated SEBASTIAN Flores. Discharge instructions updated.
[2025-04-13] MEDS: MAXIPIME IV (13:59)
[2025-04-13] MEDS: STERILE WATER FOR INJECTION IV (14:00)
--- NOTE | 2025-04-13 14:14 | PTCARENOTE ---
Pt tx to [facility], pt report called to Winnie at [facility]. PIV and tele removed, male angy changed. Pt left w/all belongings. Pt left via stretcher w/volunteer. Tubi sleeves sent per RN at [facility].
== END 2025-04-13 14:49 | DRG 208 ==
LOC: CVICU 12:54
PROVIDERS: Clinical Nurse Specialist Acute Care; Nurse Practitioner; Physician Assistant; Physician Assistant Medical; ADMITTING PHYSICIAN Thoracic Surgery (Cardiothoracic Vascular Surgery); CONSULT PHYSICIAN Internal Medicine Cardiovascular Disease; CONSULT PHYSICIAN Physical Medicine & Rehabilitation
PROC: 5A1935Z Respiratory Ventilation, Less than 24 Consecutive Hours (ICD-10-PCS; 2025-04-03)
PROC: 5A09357 Assistance with Respiratory Ventilation, Less than 24 Consecutive Hours, Continuous Positive Airway Pressure (ICD-10-PCS; 2025-04-03)
PROC: 30233N1 Transfusion of Nonautologous Red Blood Cells into Peripheral Vein, Percutaneous Approach (ICD-10-PCS; 2025-04-07)
DX: J96.02 Acute respiratory failure with hypercapnia (principal); I50.23 Acute on chronic systolic (congestive) heart failure; R57.0 Cardiogenic shock; I48.19 Other persistent atrial fibrillation; N17.9 Acute kidney failure, unspecified; J91.8 Pleural effusion in other conditions classified elsewhere; I48.92 Unspecified atrial flutter; E87.1 Hypo-osmolality and hyponatremia; E03.9 Hypothyroidism, unspecified; N40.0 Benign prostatic hyperplasia without lower urinary tract symptoms; I25.10 Atherosclerotic heart disease of native coronary artery without angina pectoris; I11.0 Hypertensive heart disease with heart failure; I25.5 Ischemic cardiomyopathy; D64.9 Anemia, unspecified; E88.09 Other disorders of plasma-protein metabolism, not elsewhere classified; R13.13 Dysphagia, pharyngeal phase; R33.9 Retention of urine, unspecified; E78.00 Pure hypercholesterolemia, unspecified; R26.2 Difficulty in walking, not elsewhere classified; E87.6 Hypokalemia; N99.89 Other postprocedural complications and disorders of genitourinary system; J96.01 Acute respiratory failure with hypoxia; Z79.01 Long term (current) use of anticoagulants; Z79.82 Long term (current) use of aspirin; Z79.899 Other long term (current) drug therapy; Z93.1 Gastrostomy status; Z95.1 Presence of aortocoronary bypass graft; Z95.2 Presence of prosthetic heart valve; Z87.891 Personal history of nicotine dependence
CPT/HCPCS: 36600; 71045; 74230; 76604; 80048; 80053; 81003; 81015; 82248; 82330; 82805; 82962; 83605; 83735; 84132; 84302; 84478; 85014; 85018; 85025; 85027; 85610; 85730; 86850; 86900; 86901; 86920; 87086; 92526; 92610; 92611; 93005; 94002; 97110; 97116; 97129; 97163; 97167; 97530; 97535; P9016